=== PATIENT | female | born 1965 | race Caucasian/White ===

== ENCOUNTER → 2016-07-29 | Outpatient (CLI) | payer OTHER ==
[2016-07-29 13:31] LABS: ALT 56 U/L (9-52); AST 52 U/L (14-36); Alkaline Phosphatase 120 U/L (38-126); Anion Gap 13 mmol/L; Blood Urea Nitrogen 10 mg/dL (7-17); Calcium 9.9 mg/dL (8.4-10.2); Carbon Dioxide 28 mmol/L (22-30); Chloride 100 mmol/L (98-107); Glucose 100 mg/dL (74-99); Non-African American GFR(MDRD) >60 (>60 ml/min/1.73 sqM); Potassium 4.7 mmol/L (3.5-5.1); Sodium 141 mmol/L (137-145); Total Bilirubin 0.7 mg/dL (0.2-1.3)
== END | disposition home or self-care (01) ==
LOC: LABWHC1 12:46
PROVIDERS: ATTEND Internal Medicine Clinical Cardiac Electrophysiology
DX: I42.9 Cardiomyopathy, unspecified (principal)
CPT/HCPCS: 36415; 80053; 84443

== ENCOUNTER 2016-11-12 01:49 | Emergency (ER) | payer OTHER ==
[2016-11-12] MEDS ORDERED: ACETAMINOPHEN IV (For NPO) 1,000 MG in EMPTY BAG 1 BAG IVPB STA (02:19)
[2016-11-12] MEDS ORDERED: ONDANSETRON 4 MG/2 ML VIAL IVP STA (02:19)
--- NOTE | 2016-11-12 02:22 | ED ---
Nausea/Vomiting/Diarrhea HPI - General Chief complaint: Nausea/Vomiting/Diarrhea Stated complaint: SOB/Nausea Time Seen by Provider: 11/12/16 02:11 Source: patient, RN notes reviewed Mode of arrival: ambulatory Limitations: no limitations - History of Present Illness Initial comments: Patient is a 51-year-old female presents emergency room for evaluation of throat pain, nausea and vomiting. Patient states yesterday she began developing throat pain. Patient states "I went downhill from there". Patient states since then she has been developing a reactive cough with mild shortness of breath. Patient does admit that she has a history of COPD. Patient states very nauseous and vomiting throughout the day. Patient denies abdominal pain. Patient denies chest pain. Patient states she'sfeeling pretty nauseous. Patient denies headache or dizziness. Patient states feeling very warm throughout the day. Patient states her last dose of Tylenol was 8 PM last evening. Patient has pain or burning during urination, trouble urinating or blood in urine. Patient denies recent travel outside the country. Patient denies new foods. Patient denies recent sick contacts. Patient states taken all her immunizations. - Related Data Home Medications Medication Instructions Recorded Confirmed Spironolactone [Aldactone] 25 mg PO DAILY 06/20/14 11/12/16 Warfarin Sodium [Coumadin] 5 mg PO SUWE 12/06/14 11/12/16 Warfarin [Coumadin] 7.5 mg PO MOTUTHFRSA 12/06/14 11/12/16 Amiodarone [Cordarone] 50 mg PO DAILY 04/06/16 11/12/16 Atorvastatin Calcium [Lipitor] 10 mg PO HS 04/06/16 11/12/16 Carvedilol [Coreg] 3.125 mg PO BID 04/06/16 11/12/16 Previous Rx's Medication Instructions Recorded HYDROcodone/APAP 5-325MG [[place] 1 tab PO Q4HR PRN #20 tab 04/06/16 5-325] Albuterol Inhaler [Ventolin Hfa 1 - 2 puff INHALATION Q6HR PRN #1 11/12/16 Inhaler] inhaler Ondansetron Odt [Zofran Odt] 4 mg PO Q8HR PRN #12 tab 11/12/16 Allergies Allergy/AdvReac Type Severity Reaction Status Date / Time No Known Allergies Allergy Verified 11/12/16 01:58 Review of Systems ROS Statement: Those systems with pertinent positive or pertinent negative responses have been documented in the HPI. ROS Other: All systems not noted in ROS Statement are negative. Past Medical History Past Medical History: Hyperlipidemia, Hypertension, Myocardial Infarction ([place]) Additional Past Medical History / Comment(s): cardiomyopathy, DVT, [place] Last Myocardial Infarction Date:: unknown History of Any Multi-Drug Resistant Organisms: None Reported Past Surgical History: Cholecystectomy Additional Past Surgical History / Comment(s): defibrillator Past Psychological History: Anxiety Smoking Status: Former smoker Past Alcohol Use History: None Reported Past Drug Use History: None Reported - Past Family History Mother Family Medical History: Diabetes Mellitus, Hypertension Father Family Medical History: No Reported History General Exam - General Exam Comments Initial Comments: Sitting in exam room, no acute distress. Limitations: no limitations General appearance: alert, in no apparent distress Head exam: Present: atraumatic, normocephalic, normal inspection Eye exam: Present: normal appearance ENT exam: Present: normal exam Neck exam: Present: normal inspection Respiratory exam: Present: normal lung sounds bilaterally. Absent: respiratory distress Cardiovascular Exam: Present: normal rhythm, tachycardia GI/Abdominal exam: Present: soft, normal bowel sounds. Absent: distended, tenderness, guarding, rebound, rigid Extremities exam: Present: normal inspection Back exam: Present: normal inspection Neurological exam: Present: alert, oriented X3, CN II-XII intact, normal gait Psychiatric exam: Present: normal affect, normal mood Skin exam: Present: warm, dry, intact, normal color. Absent: rash Course Vital Signs 11/12/16 11/12/16 11/12/16 01:54 02:57 03:00 Temperature 100.7 F H Pulse Rate 104 H 103 H Respiratory 20 20 Rate Blood Pressure 145/82 137/67 O2 Sat by Pulse 94 L 97 97 Oximetry 11/12/16 03:56 Temperature 99 F Pulse Rate 87 Respiratory 18 Rate Blood Pressure 139/65 O2 Sat by Pulse 95 Oximetry Medical Decision Making - Medical Decision Making She is a 51-year-old female since emergency room for evaluation nausea, vomiting and cough. WBC within normal limits. Other labs show no concerning findings. Influenza negative. Rapid strep negative. Chest x-ray shows no signs of pneumonia, pleural effusions or pneumothorax. Patient states her symptoms have improved with Zofran and Reglan. Patient states she feels better like to be discharged home. Patient states she understand everything that was discussed with her. Return parameters discussed. Case discussed with Dr. Lawson. - Lab Data Result diagrams: 11/12/16 02:24 11/12/16 02:24 Lab Results 11/12/16 11/12/16 11/12/16 Range/Units 02:15 02:15 02:24 WBC (3.8-10.6) k/uL RBC (3.80-5.40) m/uL Hgb (11.4-16.0) gm/dL Hct (34.0-46.0) % MCV (80.0-100.0) fL MCH (25.0-35.0) pg MCHC (31.0-37.0) g/dL RDW (11.5-15.5) % Plt Count (150-450) k/uL Neutrophils % % Lymphocytes % % Monocytes % % Eosinophils % % Basophils % % Neutrophils # (1.3-7.7) k/uL Lymphocytes # (1.0-4.8) k/uL Monocytes # (0-1.0) k/uL Eosinophils # (0-0.7) k/uL Basophils # (0-0.2) k/uL Poikilocytosis PT (9.0-12.0) sec INR (<1.1) APTT (22.0-30.0) sec Sodium (137-145) mmol/L Potassium (3.5-5.1) mmol/L Chloride (98-107) mmol/L Carbon Dioxide (22-30) mmol/L Anion Gap mmol/L BUN (7-17) mg/dL Creatinine (0.52-1.04) mg/dL Est GFR (MDRD) Af Amer (>60 ml/min/1.73 sqM) Est GFR (MDRD) Non-Af (>60 ml/min/1.73 sqM) Glucose (74-99) mg/dL Plasma Lactic Acid Carlos Eduardo (0.7-2.0) mmol/L Calcium (8.4-10.2) mg/dL Total Bilirubin (0.2-1.3) mg/dL AST (14-36) U/L ALT (9-52) U/L Alkaline Phosphatase (38-126) U/L Total Creatine Kinase 111 (30-135) U/L CK-MB (CK-2) 1.2 (0.0-2.4) ng/mL CK-MB (CK-2) Rel Index 1.1 Troponin I <0.012 (0.000-0.034) ng/mL Total Protein (6.3-8.2) g/dL Albumin (3.5-5.0) g/dL Urine Color Urine Appearance (Clear) Urine pH (5.0-8.0) Ur Specific Mobile (1.001-1.035) Urine Protein (Negative) Urine Glucose (UA) (Negative) Urine Ketones (Negative) Urine Blood (Negative) Urine Nitrite (Negative) Urine Bilirubin (Negative) Urine Urobilinogen (<2.0) mg/dL Ur Leukocyte Esterase (Negative) Influenza Type A RNA Not Detected (Not Detectd) Influenza Type B (PCR) Not Detected (Not Detectd) Group A Strep Rapid Negative (Negative) 11/12/16 11/12/16 11/12/16 Range/Units 02:24 02:24 02:24 WBC 7.0 (3.8-10.6) k/uL RBC 5.16 (3.80-5.40) m/uL Hgb 14.9 (11.4-16.0) gm/dL Hct 42.9 (34.0-46.0) % MCV 83.1 (80.0-100.0) fL MCH 28.9 (25.0-35.0) pg MCHC 34.7 (31.0-37.0) g/dL RDW 15.8 H (11.5-15.5) % Plt Count 142 L (150-450) k/uL Neutrophils % 78 % Lymphocytes % 11 % Monocytes % 5 % Eosinophils % 5 % Basophils % 0 % Neutrophils # 5.5 (1.3-7.7) k/uL Lymphocytes # 0.8 L (1.0-4.8) k/uL Monocytes # 0.4 (0-1.0) k/uL Eosinophils # 0.3 (0-0.7) k/uL Basophils # 0.0 (0-0.2) k/uL Poikilocytosis Slight PT (9.0-12.0) sec INR (<1.1) APTT (22.0-30.0) sec Sodium 140 (137-145) mmol/L Potassium 4.3 (3.5-5.1) mmol/L Chloride 105 (98-107) mmol/L Carbon Dioxide 26 (22-30) mmol/L Anion Gap 9 mmol/L BUN 11 (7-17) mg/dL Creatinine 0.80 (0.52-1.04) mg/dL Est GFR (MDRD) Af Amer >60 (>60 ml/min/1.73 sqM) Est GFR (MDRD) Non-Af >60 (>60 ml/min/1.73 sqM) Glucose 107 H (74-99) mg/dL Plasma Lactic Acid Carlos Eduardo 1.3 (0.7-2.0) mmol/L Calcium 9.4 (8.4-10.2) mg/dL Total Bilirubin 0.9 (0.2-1.3) mg/dL AST 34 (14-36) U/L ALT 40 (9-52) U/L Alkaline Phosphatase 114 (38-126) U/L Total Creatine Kinase (30-135) U/L CK-MB (CK-2) (0.0-2.4) ng/mL CK-MB (CK-2) Rel Index Troponin I (0.000-0.034) ng/mL Total Protein 7.4 (6.3-8.2) g/dL Albumin 4.4 (3.5-5.0) g/dL Urine Color Urine Appearance (Clear) Urine pH (5.0-8.0) Ur Specific Mobile (1.001-1.035) Urine Protein (Negative) Urine Glucose (UA) (Negative) Urine Ketones (Negative) Urine Blood (Negative) Urine Nitrite (Negative) Urine Bilirubin (Negative) Urine Urobilinogen (<2.0) mg/dL Ur Leukocyte Esterase (Negative) Influenza Type A RNA (Not Detectd) Influenza Type B (PCR) (Not Detectd) Group A Strep Rapid (Negative) 11/12/16 11/12/16 Range/Units 02:24 02:42 WBC (3.8-10.6) k/uL RBC (3.80-5.40) m/uL Hgb (11.4-16.0) gm/dL Hct (34.0-46.0) % MCV (80.0-100.0) fL MCH (25.0-35.0) pg MCHC (31.0-37.0) g/dL RDW (11.5-15.5) % Plt Count (150-450) k/uL Neutrophils % % Lymphocytes % % Monocytes % % Eosinophils % % Basophils % % Neutrophils # (1.3-7.7) k/uL Lymphocytes # (1.0-4.8) k/uL Monocytes # (0-1.0) k/uL Eosinophils # (0-0.7) k/uL Basophils # (0-0.2) k/uL Poikilocytosis PT 25.7 H (9.0-12.0) sec INR 2.7 (<1.1) APTT 29.2 (22.0-30.0) sec Sodium (137-145) mmol/L Potassium (3.5-5.1) mmol/L Chloride (98-107) mmol/L Carbon Dioxide (22-30) mmol/L Anion Gap mmol/L BUN (7-17) mg/dL Creatinine (0.52-1.04) mg/dL Est GFR (MDRD) Af Amer (>60 ml/min/1.73 sqM) Est GFR (MDRD) Non-Af (>60 ml/min/1.73 sqM) Glucose (74-99) mg/dL Plasma Lactic Acid Carlos Eduardo (0.7-2.0) mmol/L Calcium (8.4-10.2) mg/dL Total Bilirubin (0.2-1.3) mg/dL AST (14-36) U/L ALT (9-52) U/L Alkaline Phosphatase (38-126) U/L Total Creatine Kinase (30-135) U/L CK-MB (CK-2) (0.0-2.4) ng/mL CK-MB (CK-2) Rel Index Troponin I (0.000-0.034) ng/mL Total Protein (6.3-8.2) g/dL Albumin (3.5-5.0) g/dL Urine Color Yellow Urine Appearance Clear (Clear) Urine pH 5.0 (5.0-8.0) Ur Specific Mobile 1.014 (1.001-1.035) Urine Protein Negative (Negative) Urine Glucose (UA) Negative (Negative) Urine Ketones Negative (Negative) Urine Blood Negative (Negative) Urine Nitrite Negative (Negative) Urine Bilirubin Negative (Negative) Urine Urobilinogen <2.0 (<2.0) mg/dL Ur Leukocyte Esterase Negative (Negative) Influenza Type A RNA (Not Detectd) Influenza Type B (PCR) (Not Detectd) Group A Strep Rapid (Negative) 11/12/16 03:36 Ventricular paced rhythm, ventricular rate 93 bpm, QRS duration 168 ms, QT/QTc 440/547 ms Disposition Clinical Impression: Nausea and vomiting, Cough Disposition: HOME SELF-CARE Condition: Good Instructions: Acute Nausea and Vomiting (ED) Additional Instructions: Take Zofran as needed for nausea. Use inhaler as needed. Alternate Tylenol and Motrin for fever. Drink plenty of fluids. Please follow up with primary care provider in 1-2 days. If any new symptom arises or symptoms worsen, return to ER as soon as possible. Prescriptions: Albuterol Inhaler [Ventolin Hfa Inhaler] 1 - 2 puff INHALATION Q6HR PRN #1 inhaler PRN Reason: Shortness Of Breath Ondansetron Odt [Zofran Odt] 4 mg PO Q8HR PRN #12 tab PRN Reason: Nausea Referrals: Daniel Mosqueda MD [Primary Care Provider] - 1-2 days Time of Disposition: 03:52
[2016-11-12] MEDS: SODIUM CHLORIDE 0.9% 500 ML IV SCH (02:29)
[2016-11-12 02:34] LABS: Basophils % (A) 0 %; CHCM 35.2; Eosinophils # (A) 0.3 k/uL (0-0.7); Eosinophils % (A) 5 %; HCT 42.9 % (34.0-46.0); HDW 3.47; HGB 14.9 gm/dL (11.4-16.0); Luc # (Auto) 0.05; Luc % (Auto) 1; Lymphocytes # (A) 0.8 k/uL (1.0-4.8); Lymphocytes % (A) 11 %; MCH 28.9 pg (25.0-35.0); MCHC 34.7 g/dL (31.0-37.0); MCV 83.1 fL (80.0-100.0); Mean Platelet Volume 8.6; Monocytes # (A) 0.4 k/uL (0-1.0); Monocytes % (A) 5 %; Neutrophils # (A) 5.5 k/uL (1.3-7.7); Neutrophils % (A) 78 %; Poikilocytosis Slight; RBC 5.16 m/uL (3.80-5.40); RDW 15.8 % (11.5-15.5); WBC (Perox) 6.98
[2016-11-12 02:42] LABS: ALT 40 U/L (9-52); AST 34 U/L (14-36); Alkaline Phosphatase 114 U/L (38-126); Anion Gap 9 mmol/L; Blood Urea Nitrogen 11 mg/dL (7-17); Calcium 9.4 mg/dL (8.4-10.2); Carbon Dioxide 26 mmol/L (22-30); Chloride 105 mmol/L (98-107); Glucose 107 mg/dL (74-99); Non-African American GFR(MDRD) >60 (>60 ml/min/1.73 sqM); Potassium 4.3 mmol/L (3.5-5.1); Sodium 140 mmol/L (137-145); Total Bilirubin 0.9 mg/dL (0.2-1.3); Total Protein 7.4 g/dL (6.3-8.2)
[2016-11-12 02:44] LABS: INR 2.7 (<1.1); Partial Thromboplastin Time 29.2 sec (22.0-30.0); Prothrombin Time 25.7 sec (9.0-12.0)
[2016-11-12 02:52] LABS: Appearance,Urine Clear (Clear); Bilirubin,Urine Negative (Negative); Glucose,Urine (UA) Negative (Negative); Ketones,Urine Negative (Negative); Leukocyte Esterase,Urine Negative (Negative); Nitrite,Urine Negative (Negative); Protein,Urine Negative (Negative); Specific Gravity,Urine 1.014 (1.001-1.035); UA Billing (MACRO vs. MICRO) CHEM; Urobilinogen,Urine <2.0 mg/dL (<2.0)
[2016-11-12 02:55] LABS: Creatine Kinase 111 U/L (30-135)
[2016-11-12] MEDS ORDERED: METOCLOPRAMIDE 5 MG/ML 2 ML VIAL IVP STA (02:59)
[2016-11-12 03:08] LABS: Creatine Kinase MB 1.2 ng/mL (0.0-2.4); Troponin I <0.012 ng/mL (0.000-0.034)
--- NOTE | 2016-11-12 03:15 | XR ---
Chest PA and lateral views INDICATION: Chest pain COMPARISON: CXR 03/09/15 FINDINGS: PA and lateral views of the chest are obtained. Cardiomediastinal silhouette is stable with normal heart size. Pulmonary vascularity is normal. There is a left-sided AICD-pacemaker with intact right atrial, right ventricular, and coronary sinus leads. There is no consolidation, effusion, or pneumothorax. There are no acute osseous findings. IMPRESSION: No radiographic evidence of acute cardiopulmonary disease.
[2016-11-12] MEDS ORDERED: IBUPROFEN 600 MG TAB PO STA (03:50)
[2016-11-12 03:57] VITALS: BP 139/65; PULSE 87; RESP 18; TEMP 99
== END 2016-11-12 04:03 | disposition home or self-care (01) ==
LOC: EC 01:49
DX: R11.2 Nausea with vomiting, unspecified (principal); R05 Cough; R00.0 Tachycardia, unspecified; R06.02 Shortness of breath; R07.0 Pain in throat; E78.5 Hyperlipidemia, unspecified; I10 Essential (primary) hypertension; I42.9 Cardiomyopathy, unspecified; I25.2 Old myocardial infarction; Z87.891 Personal history of nicotine dependence; Z79.01 Long term (current) use of anticoagulants; Z79.899 Other long term (current) drug therapy
CPT/HCPCS: 36415; 93005; 80053; 82550; 82553; 83605; 84484; 85025; 85610; 85730; 81003; 87040; 87086; 87081; 87430; 87502; 71020; 99285; 96365; 96375 ×2; 96361; J2765; J2405; J0131

== ENCOUNTER 2016-11-21 09:27 | Observation (INO) | payer OTHER ==
[2016-11-21] MEDS ORDERED: IPRATROPIUM-ALBUTEROL 3 ML NEB INHALATION STA ×2 (11:38→13:27)
[2016-11-21] MEDS ORDERED: methylPREDNISolone SOD SUCCI 125 MG/2 ML VIAL IV STA (11:38)
[2016-11-21] MEDS ORDERED: MORPHINE SULFATE 4 MG/ML SYRINGE IV STA (11:38)
--- NOTE | 2016-11-21 11:47 | ED ---
General Adult HPI - General Source: patient, RN notes reviewed Mode of arrival: ambulatory Limitations: no limitations <Darek Brady - Last Filed: 11/21/16 13:56> <Vishal Burciaga - Last Filed: 11/21/16 14:31> - General Chief complaint: Upper Respiratory Infection Stated complaint: congestion, diff breathing Time Seen by Provider: 11/21/16 11:33 - History of Present Illness Initial comments: Patient is a 51-year-old female who presents emergency room today with a chief increased cough congestion over the past week. She does admit that she was seen here in the emergency room diagnosed with an upper respiratory infection week ago. States she saw her dentist was also placed on antibiotics of amoxicillin due to some dental work. She states that she's had increased cough congestion over the last week he states last 2 days had increased sputum production as been clear in color. Does admit to a history of COPD. States she 's been using treatments at home with some relief the symptoms. She admits that when she fell she's been experiencing increased pain in her back and head. She denies any other complaints at this time. (Darek Brady) - Related Data Home Medications Medication Instructions Recorded Confirmed Spironolactone [Aldactone] 25 mg PO DAILY 06/20/14 11/21/16 Warfarin Sodium [Coumadin] 5 mg PO SUWE 12/06/14 11/21/16 Warfarin [Coumadin] 7.5 mg PO MOTUTHFRSA 12/06/14 11/21/16 Amiodarone [Cordarone] 50 mg PO DAILY 04/06/16 11/21/16 Atorvastatin Calcium [Lipitor] 10 mg PO HS 04/06/16 11/21/16 Carvedilol [Coreg] 3.125 mg PO BID 04/06/16 11/21/16 Amoxicillin 500 mg PO DAILY 11/21/16 11/21/16 Dextromethorphan HBr/Chlor-Mal 2 tab PO ONCE 11/21/16 11/21/16 [Coricidin Hbp Cough & Cold Tab] Previous Rx's Medication Instructions Recorded HYDROcodone/APAP 5-325MG [[place] 1 tab PO Q4HR PRN #20 tab 04/06/16 5-325] Albuterol Inhaler [Ventolin Hfa 1 - 2 puff INHALATION Q6HR PRN #1 11/12/16 Inhaler] inhaler Ondansetron Odt [Zofran Odt] 4 mg PO Q8HR PRN #12 tab 11/12/16 Allergies Allergy/AdvReac Type Severity Reaction Status Date / Time No Known Allergies Allergy Verified 11/21/16 12:07 Review of Systems ROS Other: All systems not noted in ROS Statement are negative. <Jose AntonioDarek - Last Filed: 11/21/16 13:56> ROS Other: All systems not noted in ROS Statement are negative. <Vishal Burciaga - Last Filed: 11/21/16 14:31> ROS Statement: Those systems with pertinent positive or pertinent negative responses have been documented in the HPI. Past Medical History Past Medical History: Hyperlipidemia, Hypertension, Myocardial Infarction ([place]) Additional Past Medical History / Comment(s): cardiomyopathy, DVT, [place] Last Myocardial Infarction Date:: unknown History of Any Multi-Drug Resistant Organisms: None Reported Past Surgical History: Cholecystectomy Additional Past Surgical History / Comment(s): defibrillator Past Psychological History: Anxiety Smoking Status: Former smoker Past Alcohol Use History: None Reported Past Drug Use History: None Reported - Past Family History Mother Family Medical History: Diabetes Mellitus, Hypertension Father Family Medical History: No Reported History <Darek Brady - Last Filed: 11/21/16 13:56> General Exam Limitations: no limitations <Jose AntonioDarek - Last Filed: 11/21/16 13:56> <GualbertoVishal - Last Filed: 11/21/16 14:31> - General Exam Comments Initial Comments: General: The patient is awake and alert, in no distress, and does not appear acutely ill. Eye: Pupils are equal, round and reactive to light, extra-ocular movements are intact. No nystagmus. There is normal conjunctiva bilaterally. No signs of icterus. Ears, nose, mouth and throat: There are moist mucous membranes and no oral lesions. Neck: The neck is supple, there is no tenderness or JVD. Cardiovascular: There is a regular rate and rhythm. No murmur, rub or gallop is appreciated. Respiratory: Bilateral expiratory wheeze. respirations are non-labored, breath sounds are equal. No stridor, rales, or rhonchi. Musculoskeletal: Normal ROM, no tenderness. Strength 5/5. Sensation intact. Pulses equal bilaterally 2+. Neurological: A&O x 3. CN II-XII intact, There are no obvious motor or sensory deficits. Coordination appears grossly intact. Speech is normal. Skin: Skin is warm and dry and no rashes or lesions are noted. Psychiatric: Cooperative, appropriate mood & affect, normal judgment. (Darek Brady) Course <Darek Brady - Last Filed: 11/21/16 13:56> <Vishal Burciaga - Last Filed: 11/21/16 14:31> Vital Signs 11/21/16 11/21/16 11/21/16 10:44 11:50 12:01 Temperature 98.4 F Pulse Rate 79 80 82 Respiratory 16 16 Rate Blood Pressure 138/79 O2 Sat by Pulse 92 L Oximetry 11/21/16 11/21/16 11/21/16 13:23 13:37 13:46 Temperature 97.8 F Pulse Rate 70 74 78 Respiratory 16 Rate Blood Pressure 124/70 O2 Sat by Pulse 98 Oximetry 11/21/16 14:00 Temperature 97.2 F L Pulse Rate 72 Respiratory 16 Rate Blood Pressure 121/59 O2 Sat by Pulse 97 Oximetry - Reevaluation(s) Reevaluation #1: 11/21/16 14:30 I did personally do a [id number] evaluation the patient did discuss the findings with her. She still dyspneic she does demonstrate a pulse oximetry of approximately 8889. She still demonstrates to express also wheezing on auscultation. She will be admitted for inpatient treatment. She does states this is been going on for about 2 days. (Vishal Burciaga) EKG Findings - EKG Comments: EKG Findings:: EKG performed at 6: Shows a ventricular paced rhythm at 65 bpm QRS 172. QT/QTc 510/530. No acute ST changes. <Darek Brady - Last Filed: 11/21/16 13:56> Medical Decision Making - Lab Data Result diagrams: 11/21/16 11:45 11/21/16 11:45 <Darek Brady - Last Filed: 11/21/16 13:56> - Lab Data Result diagrams: 11/21/16 11:45 11/21/16 11:45 <Vishal Burciaga - Last Filed: 11/21/16 14:31> - Medical Decision Making Patient's chest x-rays negative. Her labs been reviewed are unremarkable. She shows no acute abnormalities. Patient's labs reviewed. Patient given breathing treatments and steroids here in the emergency room does have some improvement but still having some wheeze bilaterally. Pulse ox currently 95% on room air. Patient will be admitted for COPD exacerbation continued on steroids and breathing treatments. (Darek Brady) - Lab Data Lab Results 11/21/16 11/21/16 11/21/16 Range/Units 11:45 11:45 11:45 WBC 6.7 (3.8-10.6) k/uL RBC 5.38 (3.80-5.40) m/uL Hgb 15.5 (11.4-16.0) gm/dL Hct 44.2 (34.0-46.0) % MCV 82.3 (80.0-100.0) fL MCH 28.8 (25.0-35.0) pg MCHC 35.0 (31.0-37.0) g/dL RDW 16.2 H (11.5-15.5) % Plt Count 190 (150-450) k/uL Neutrophils % 61 % Lymphocytes % 28 % Monocytes % 6 % Eosinophils % 3 % Basophils % 1 % Neutrophils # 4.1 (1.3-7.7) k/uL Lymphocytes # 1.9 (1.0-4.8) k/uL Monocytes # 0.4 (0-1.0) k/uL Eosinophils # 0.2 (0-0.7) k/uL Basophils # 0.1 (0-0.2) k/uL Hyperchromasia Slight Poikilocytosis Slight Anisocytosis Slight Sodium 140 (137-145) mmol/L Potassium 4.4 (3.5-5.1) mmol/L Chloride 105 (98-107) mmol/L Carbon Dioxide 24 (22-30) mmol/L Anion Gap 11 mmol/L BUN 13 (7-17) mg/dL Creatinine 0.73 (0.52-1.04) mg/dL Est GFR (MDRD) Af Amer >60 (>60 ml/min/1.73 sqM) Est GFR (MDRD) Non-Af >60 (>60 ml/min/1.73 sqM) Glucose 95 (74-99) mg/dL Calcium 9.5 (8.4-10.2) mg/dL Total Bilirubin 0.7 (0.2-1.3) mg/dL AST 40 H (14-36) U/L ALT 53 H (9-52) U/L Alkaline Phosphatase 110 (38-126) U/L Total Creatine Kinase 101 (30-135) U/L CK-MB (CK-2) 1.5 (0.0-2.4) ng/mL CK-MB (CK-2) Rel Index 1.5 Troponin I <0.012 (0.000-0.034) ng/mL Total Protein 7.8 (6.3-8.2) g/dL Albumin 4.5 (3.5-5.0) g/dL Disposition Time of Disposition: 13:51 <Darek Brady - Last Filed: 11/21/16 13:56> <Vishal Burciaga - Last Filed: 11/21/16 14:31> Clinical Impression: COPD exacerbation Disposition: ADMITTED IP TO THIS HOSP Condition: Stable Referrals: Daniel Mosqueda MD [Primary Care Provider] - 1-2 days
[2016-11-21 12:07] LABS: Anisocytosis Slight; Basophils # (A) 0.1 k/uL (0-0.2); Basophils % (A) 1 %; CH 29.3; Eosinophils # (A) 0.2 k/uL (0-0.7); Eosinophils % (A) 3 %; HCT 44.2 % (34.0-46.0); HDW 3.84; HGB 15.5 gm/dL (11.4-16.0); Hyperchromasia Slight; Luc # (Auto) 0.12; Luc % (Auto) 2; Lymphocytes # (A) 1.9 k/uL (1.0-4.8); Lymphocytes % (A) 28 %; MCH 28.8 pg (25.0-35.0); MCV 82.3 fL (80.0-100.0); Mean Platelet Volume 8.4; Monocytes # (A) 0.4 k/uL (0-1.0); Monocytes % (A) 6 %; Neutrophils # (A) 4.1 k/uL (1.3-7.7); Neutrophils % (A) 61 %; Poikilocytosis Slight; RBC 5.38 m/uL (3.80-5.40); RDW 16.2 % (11.5-15.5); WBC 6.7 k/uL (3.8-10.6); WBC (Perox) 6.66
--- NOTE | 2016-11-21 12:19 | XR ---
EXAMINATION TYPE: XR chest 2V DATE OF EXAM: 11/21/2016 12:14 PM COMPARISON: 11/12/2016 INDICATION: Cough congestion TECHNIQUE: 2 view chest FINDINGS: The heart size is normal. The pulmonary vasculature is normal. The lungs are clear. Pacemaker overlies left chest. IMPRESSION: 1. No acute pulmonary process.
[2016-11-21 12:23] LABS: ALT 53 U/L (9-52); AST 40 U/L (14-36); Alkaline Phosphatase 110 U/L (38-126); Anion Gap 11 mmol/L; Blood Urea Nitrogen 13 mg/dL (7-17); Calcium 9.5 mg/dL (8.4-10.2); Carbon Dioxide 24 mmol/L (22-30); Chloride 105 mmol/L (98-107); Glucose 95 mg/dL (74-99); Non-African American GFR(MDRD) >60 (>60 ml/min/1.73 sqM); Potassium 4.4 mmol/L (3.5-5.1); Sodium 140 mmol/L (137-145); Total Bilirubin 0.7 mg/dL (0.2-1.3); Total Protein 7.8 g/dL (6.3-8.2)
[2016-11-21 12:30] LABS: Creatine Kinase 101 U/L (30-135)
[2016-11-21 12:42] LABS: Creatine Kinase MB 1.5 ng/mL (0.0-2.4); Troponin I <0.012 ng/mL (0.000-0.034)
[2016-11-21] MEDS ORDERED: HYDROcodone/APAP 5-325MG 1 EACH TAB PO STA (13:22)
[2016-11-21] MEDS ORDERED: ONDANSETRON 4 MG/2 ML VIAL IVP PRN (13:52)
[2016-11-21] MEDS ORDERED: NALOXONE 0.4 MG/ML 1 ML VIAL IV PRN (13:52)
[2016-11-21] MEDS ORDERED: SODIUM CHLORIDE 0.9% 1,000 ML IV ONE (13:52)
[2016-11-21 16:40] LABS: INR 2.5 (<1.1); Prothrombin Time 24.1 sec (9.0-12.0)
[2016-11-21] MEDS: methylPREDNISolone SOD SUCCI 125 MG/2 ML VIAL IV SCH ×2 (17:22→23:23)
[2016-11-21] MEDS: HYDROcodone/APAP 5-325MG 1 EACH TAB PO PRN (17:24)
[2016-11-21] MEDS ORDERED: WARFARIN 7.5 MG TAB PO SCH (18:00)
[2016-11-21] MEDS: ATORVASTATIN 10 MG TAB PO SCH (21:03)
[2016-11-21] MEDS: CARVEDILOL 3.125 MG TAB PO SCH (21:03)
[2016-11-21] MEDS: ZOLPIDEM 5 MG TAB PO PRN (22:06)
[2016-11-22] MEDS: HYDROcodone/APAP 5-325MG 1 EACH TAB PO PRN ×2 (04:45→07:56)
[2016-11-22] MEDS: methylPREDNISolone SOD SUCCI 125 MG/2 ML VIAL IV SCH ×4 (06:29→23:41)
[2016-11-22] MEDS: AMIODARONE 50 MG TAB PO SCH (07:56)
[2016-11-22] MEDS: CARVEDILOL 3.125 MG TAB PO SCH ×2 (07:56→21:03)
[2016-11-22] MEDS: SPIRONOLACTONE 25 MG TAB PO SCH (07:57)
[2016-11-22 09:38] LABS: Anisocytosis Slight; Basophils % (A) 0 %; CH 28.8; CHCM 33.5; Eosinophils % (A) 0 %; HCT 43.2 % (34.0-46.0); HGB 14.3 gm/dL (11.4-16.0); Luc # (Auto) 0.04; Luc % (Auto) 0; Lymphocytes # (A) 1.1 k/uL (1.0-4.8); Lymphocytes % (A) 9 %; MCH 28.6 pg (25.0-35.0); MCV 86.7 fL (80.0-100.0); Mean Platelet Volume 9.3; Monocytes # (A) 0.1 k/uL (0-1.0); Monocytes % (A) 1 %; Neutrophils # (A) 10.8 k/uL (1.3-7.7); Neutrophils % (A) 89 %; Poikilocytosis Slight; RBC 4.98 m/uL (3.80-5.40); RDW 16.3 % (11.5-15.5); WBC 12.1 k/uL (3.8-10.6); WBC (Perox) 12.37
[2016-11-22 09:45] LABS: INR 2.5 (<1.1); Prothrombin Time 24.4 sec (9.0-12.0)
[2016-11-22 09:49] LABS: ALT 44 U/L (9-52); AST 29 U/L (14-36); Alkaline Phosphatase 86 U/L (38-126); Anion Gap 13 mmol/L; Blood Urea Nitrogen 16 mg/dL (7-17); Calcium 9.6 mg/dL (8.4-10.2); Carbon Dioxide 23 mmol/L (22-30); Chloride 105 mmol/L (98-107); Glucose 201 mg/dL (74-99); Non-African American GFR(MDRD) >60 (>60 ml/min/1.73 sqM); Potassium 4.2 mmol/L (3.5-5.1); Sodium 141 mmol/L (137-145); Total Bilirubin 0.5 mg/dL (0.2-1.3); Total Protein 7.2 g/dL (6.3-8.2)
[2016-11-22] MEDS: IPRATROPIUM-ALBUTEROL 3 ML NEB INHALATION PRN ×2 (11:18→19:09)
[2016-11-22] MEDS ORDERED: BUTALB/APAP/CAFF 50-325-40MG TAB PO PRN (14:12)
[2016-11-22] MEDS: BUTALB/APAP/CAFF 50-325-40MG TAB PO PRN (15:48)
[2016-11-22] MEDS ORDERED: WARFARIN 5 MG TAB PO SCH (18:00)
--- NOTE | 2016-11-22 20:00 | HP ---
DATE OF ADMISSION: CHIEF COMPLAINT: Difficulty breathing. HISTORY OF PRESENT ILLNESS: This is another admission for this 51-year-old white female who has had multiple problems in the past including COPD and asthma. She came into the emergency room with difficulty breathing and was admitted with COPD. She has a past history of cardiomyopathy, previous myocardial infarction and DVT with pulmonary embolism. REVIEW OF SYSTEMS: She does have a slight headache but she has had no change in vision or hearing. She has had no hemoptysis, palpitations, syncope, abdominal pain, vomiting, diarrhea, melena, jaundice, hematuria, frequency, urgency, diabetes, etc. Past medical history, family history, personal and social histories reveal that she has surgically undergone a cholecystectomy and placement of AICD. She is not allergic to any medication. She is on amiodarone, Coreg, Aldactone, Xanax, Ambien, statins and Coumadin. She does not smoke any longer, but did. She does not drink. PHYSICAL EXAMINATION: VITAL SIGNS: Blood pressure 124/69, pulse 66, respirations of 42 and she is afebrile. GENERAL: She appeared to be in no acute distress. Face is flushed. HEENT: Head, ears, eyes, nose, mouth, and throat were normal. NECK: Neck veins are not distended. Thyroid is enlarged. CHEST: Chest demonstrated wheezes, rales and rhonchi throughout with prolonged expiratory phase. CARDIAC: Normal except for tachycardia. ABDOMEN: The abdomen is soft and there are no masses. EXTREMITIES: Normal. NEUROLOGICAL: She is intact. IMPRESSION: 1. Exacerbation of chronic obstructive pulmonary disease. 2. Cardiomyopathy. 3. Previous pulmonary embolism. PLAN: 1. Bed rest. 2. IV fluids. 3. Updrafts. 4. IV and inhaled steroids.
--- NOTE | 2016-11-22 20:02 | PN ---
DATE OF SERVICE: 11/22/2016 CHIEF COMPLAINT: Exacerbation of chronic obstructive pulmonary disease. HISTORY OF PRESENT ILLNESS: This lady is doing a little bit better. She does have a slight headache. PHYSICAL EXAMINATION: Vital signs are more clear and there is much less wheezing. Cardiac exam is normal. IMPRESSION: 1. Exacerbation of chronic obstructive pulmonary disease. 2. Previous pulmonary embolism. 3. Cardiomyopathy. PLAN: Fioricet for the headache and continue to treat her chronic obstructive pulmonary disease.
[2016-11-22] MEDS: ATORVASTATIN 10 MG TAB PO SCH (21:04)
[2016-11-22] MEDS: ZOLPIDEM 5 MG TAB PO PRN (21:07)
[2016-11-23] MEDS: methylPREDNISolone SOD SUCCI 125 MG/2 ML VIAL IV SCH ×2 (05:47→11:36)
[2016-11-23] MEDS: BUTALB/APAP/CAFF 50-325-40MG TAB PO PRN ×2 (07:22→11:31)
[2016-11-23 07:27] VITALS: BP 117/77; RESP 18; TEMP 97.5
[2016-11-23] MEDS: IPRATROPIUM-ALBUTEROL 3 ML NEB INHALATION PRN (08:10)
[2016-11-23 08:21] VITALS: PULSE 80
[2016-11-23] MEDS: SPIRONOLACTONE 25 MG TAB PO SCH (08:25)
[2016-11-23] MEDS: CARVEDILOL 3.125 MG TAB PO SCH (08:25)
[2016-11-23] MEDS: AMIODARONE 50 MG TAB PO SCH (08:25)
--- NOTE | 2016-11-23 11:10 | P.DS ---
Providers Date of admission: 11/21/16 14:30 Expected date of discharge: 11/23/16 Attending physician: Daniel Mcfarland Primary care physician: Daniel Mcfarland [facility] Course: A 51-year-old female presented to the emergency room with a chief complaint of having audible cough and congestion shortness of breath. Patient was in the emergency room one week prior with similar symptoms was treated for an upper respiratory infection. Patient states that she also saw her dentist to place the patient on antibiotics amoxicillin due to some dental work. Patient stated she continued to have the above-mentioned symptoms 3 presented to the emergency room to be evaluated for the above-mentioned symptoms. In the emergency room on air the patient's pulse ox sat was 88%. Patient was started on updrafts and was advised to be admitted for inpatient treatment. Chest x-ray obtained in the emergency room was negative. Patient elected to be treated for an acute exacerbation of COPD. Impression discharge diagnosis Present on admission shortness of breath acute hypoxic respiratory insufficiency suspect due to exacerbation COPD failed outpatient treatment A remote history of tobacco abuse Recent treatment for an upper respiratory infection History of a pulmonary emboli on anticoagulation Coumadin INR therapeutic on admission 2.5 Chronic congestive heart failure systolic dysfunction echocardiogram 2014 EF less than 20 no evidence of decompensation Hypertension with hypertensive heart disease Severe pulmonary hypertension per echocardiogram 2014 The above dictated assessment and findings were discussed with dr mcfarland . Impression and the plan of care have been dictated as directed. Sary Zazueta nurse practitioner acting as a scribe for dr mcfarland Patient Condition at Discharge: Stable Plan - Discharge Summary New Discharge Prescriptions: methylPREDNISolone Dose Pack [Medrol Dose Pack] 4 mg PO DIRECTED #21 package Discharge Medication List Spironolactone [Aldactone] 25 mg PO DAILY 06/20/14 [History] Warfarin Sodium [Coumadin] 5 mg PO SUWE 12/06/14 [History] Warfarin [Coumadin] 7.5 mg PO MOTUTHFRSA 12/06/14 [History] Amiodarone [Cordarone] 50 mg PO DAILY 04/06/16 [History] Atorvastatin Calcium [Lipitor] 10 mg PO HS 04/06/16 [History] Carvedilol [Coreg] 3.125 mg PO BID 04/06/16 [History] HYDROcodone/APAP 5-325MG [[place] 5-325] 1 tab PO Q4HR PRN #20 tab 04/06/16 [Rx] Albuterol Inhaler [Ventolin Hfa Inhaler] 1 - 2 puff INHALATION Q6HR PRN #1 inhaler 11/12/16 [Rx] Ondansetron Odt [Zofran ODT] 4 mg PO Q8HR PRN #12 tab 11/12/16 [Rx] Amoxicillin 500 mg PO DAILY 11/21/16 [History] Dextromethorphan HBr/Chlor-Mal [Coricidin Hbp Cough & Cold Tab] 2 tab PO ONCE [History] Zolpidem [Ambien] 5 mg PO HS PRN 11/21/16 [History] methylPREDNISolone Dose Pack [Medrol Dose Pack] 4 mg PO DIRECTED #21 package 11/23/16 [Rx] Follow up Appointment(s)/Referral(s): Daniel Mcfarland MD [Primary Care Provider] - 1-2 days Patient Instructions/Handouts: COPD (Chronic Obstructive Pulmonary Disease) (DC ) Discharge Disposition: HOME SELF-CARE
--- NOTE | 2016-11-24 18:35 | PN ---
DATE OF SERVICE: 11/23/2016 CHIEF COMPLAINT: Difficulty breathing. HISTORY OF PRESENT ILLNESS: This lady is doing much better. Chest has opened up. She is much less tight and wheezy. She is not running a fever. The examination is basically normal. She still has some wheezing and congestion in both lung baker, but it is much improved, and she is nearly clear. IMPRESSION: Exacerbation of chronic obstructive pulmonary disease. PLAN: Probably home today. This will be arranged by the nurse practitioner.
== END 2016-11-23 11:40 | disposition home or self-care (01) ==
LOC: EC 09:27 → 4MS4W 14:30
PROVIDERS: ADMIT Family Medicine; ATTEND Family Medicine
DX: J44.1 Chronic obstructive pulmonary disease with (acute) exacerbation (principal); I42.9 Cardiomyopathy, unspecified; Z79.01 Long term (current) use of anticoagulants; E78.5 Hyperlipidemia, unspecified; I25.2 Old myocardial infarction; Z86.718 Personal history of other venous thrombosis and embolism; F41.9 Anxiety disorder, unspecified; Z87.891 Personal history of nicotine dependence; Z82.49 Family history of ischemic heart disease and other diseases of the circulatory system; Z83.3 Family history of diabetes mellitus; Z86.711 Personal history of pulmonary embolism; J06.9 Acute upper respiratory infection, unspecified; I50.22 Chronic systolic (congestive) heart failure; I11.0 Hypertensive heart disease with heart failure; I27.2 Other secondary pulmonary hypertension; R06.02 Shortness of breath; R09.02 Hypoxemia; R06.89 Other abnormalities of breathing; Z79.899 Other long term (current) drug therapy
CPT/HCPCS: 96374; 96375; 99284; 36415; 94640 ×5; 94760; 93005; 80053 ×2; 82550; 82553; 84484; 85025 ×2; 85610 ×2; 71020; G0378 ×3; J2270; J2930 ×3

== ENCOUNTER 2016-12-23 22:56 | Emergency (ER) | payer OTHER ==
[2016-12-23] MEDS ORDERED: SODIUM CHLORIDE 0.9% 1,000 ML IV ONE (23:14)
[2016-12-23] MEDS ORDERED: ONDANSETRON 4 MG/2 ML VIAL IVP STA (23:14)
[2016-12-23] MEDS ORDERED: FAMOTIDINE 20 MG/2 ML VIAL IV STA (23:14)
--- NOTE | 2016-12-23 23:26 | ED ---
General Adult HPI - General Chief complaint: Chest Pain Stated complaint: Chest Pain Time Seen by Provider: 12/23/16 23:00 Source: patient Mode of arrival: wheelchair Limitations: no limitations - History of Present Illness Initial comments: This is a 51-year-old female with a history of PE, CAD, pacemaker who presents emergency department for epigastric abdominal pain nausea and vomiting. She states that the symptoms started earlier today with the nausea. She states that she had a sip of some Pepsi just before coming into the emergency department and developed the discomfort in her abdomen and burning sensation in her chest. She denies any associated shortness of breath however does admit to some lightheadedness. No diarrhea. Her daughter was recently admitted today for pancreatitis. She states that she does not recall what it felt like when she had her heart attack because she was unconscious. She denies any other complaints. No history of GERD. No other complaints. - Related Data Home Medications Medication Instructions Recorded Confirmed Spironolactone [Aldactone] 25 mg PO DAILY 06/20/14 11/21/16 Warfarin Sodium [Coumadin] 5 mg PO SUWE 12/06/14 11/21/16 Warfarin [Coumadin] 7.5 mg PO MOTUTHFRSA 12/06/14 11/21/16 Amiodarone [Cordarone] 50 mg PO DAILY 04/06/16 11/21/16 Atorvastatin Calcium [Lipitor] 10 mg PO HS 04/06/16 11/21/16 Carvedilol [Coreg] 3.125 mg PO BID 04/06/16 11/21/16 Amoxicillin 500 mg PO DAILY 11/21/16 11/21/16 Chlorpheniramine/Dextromethorp 2 tab PO ONCE 11/21/16 11/21/16 [Coricidin Hbp Cough & Cold Tab] Zolpidem [Ambien] 5 mg PO HS PRN 11/21/16 11/21/16 Previous Rx's Medication Instructions Recorded HYDROcodone/APAP 5-325MG [[place] 1 tab PO Q4HR PRN #20 tab 04/06/16 5-325] Albuterol Inhaler [Ventolin Hfa 1 - 2 puff INHALATION Q6HR PRN #1 11/12/16 Inhaler] inhaler Ondansetron Odt [Zofran ODT] 4 mg PO Q8HR PRN #12 tab 11/12/16 methylPREDNISolone Dose Pack 4 mg PO DIRECTED #21 package 11/23/16 [Medrol Dose Pack] Allergies Allergy/AdvReac Type Severity Reaction Status Date / Time No Known Allergies Allergy Verified 11/21/16 12:07 Review of Systems ROS Statement: Those systems with pertinent positive or pertinent negative responses have been documented in the HPI. ROS Other: All systems not noted in ROS Statement are negative. Past Medical History Past Medical History: Hyperlipidemia, Hypertension, Myocardial Infarction (PR) Additional Past Medical History / Comment(s): cardiomyopathy, DVT, PR Last Myocardial Infarction Date:: unknown History of Any Multi-Drug Resistant Organisms: None Reported Past Surgical History: Cholecystectomy Additional Past Surgical History / Comment(s): defibrillator Past Psychological History: Anxiety Smoking Status: Former smoker Past Alcohol Use History: None Reported Past Drug Use History: None Reported - Past Family History Mother Family Medical History: Diabetes Mellitus, Hypertension Father Family Medical History: No Reported History General Exam - General Exam Comments Initial Comments: Constitutional: [Awake alert] appears in mild distress Head: [Normocephalic atraumatic] Eyes: [no conjunctival injection] [No scleral icterus] [EOMI] Neck: [No JVD] [Supple] Heart: Tachycardia [normal S1-S2] [no murmurs] Lungs: [Clear to auscultation bilaterally] [No wheezing] [No rales] Abdomen: [Soft] [nondistended] mild epigastric tenderness without rebound or guarding Extremities: [Non edematous] [DP pulses intact] [Radial pulses intact] Neuro: [A&Ox3] [No focal neurologic deficits] Psych: [Appropriate mood and affect] Limitations: no limitations Course Vital Signs 12/23/16 12/23/16 12/23/16 22:58 23:13 23:40 Temperature 98.3 F Pulse Rate 119 H 105 H 96 Respiratory 24 18 16 Rate Blood Pressure 172/107 172/102 107/59 O2 Sat by Pulse 92 L 98 Oximetry EKG Findings - EKG Comments: EKG Findings:: EKG showing a ventricular paced rhythm with a rate of 1:15. No abnormal ST segment changes or T-wave inversions. QTC 542. Medical Decision Making - Medical Decision Making This is a 51-year-old female who presents emergency department for epigastric abdominal pain nausea and vomiting. She was improved after Zofran and Pepcid. Had no further pain after these medications. Labwork reviewed and unremarkable. EKG was normal for her. Showed a paced rhythm. At this time I feel the patient is likely suffering from some type of gastritis. I told her to go home take Zofran and Zantac which she has at home. She can return she has worsening symptoms or all questions were answered. - Lab Data Result diagrams: 12/23/16 23:37 12/23/16 23:37 Lab Results 12/23/16 12/23/16 12/23/16 Range/Units 23:37 23:37 23:37 WBC 8.2 (3.8-10.6) k/uL RBC 5.09 (3.80-5.40) m/uL Hgb 15.1 (11.4-16.0) gm/dL Hct 43.4 (34.0-46.0) % MCV 85.3 (80.0-100.0) fL MCH 29.7 (25.0-35.0) pg MCHC 34.8 (31.0-37.0) g/dL RDW 16.5 H (11.5-15.5) % Plt Count 181 (150-450) k/uL Neutrophils % 63 % Lymphocytes % 27 % Monocytes % 5 % Eosinophils % 4 % Basophils % 1 % Neutrophils # 5.1 (1.3-7.7) k/uL Lymphocytes # 2.2 (1.0-4.8) k/uL Monocytes # 0.4 (0-1.0) k/uL Eosinophils # 0.3 (0-0.7) k/uL Basophils # 0.1 (0-0.2) k/uL Poikilocytosis Slight Anisocytosis Slight Sodium 140 (137-145) mmol/L Potassium 4.0 (3.5-5.1) mmol/L Chloride 103 (98-107) mmol/L Carbon Dioxide 27 (22-30) mmol/L Anion Gap 10 mmol/L BUN 11 (7-17) mg/dL Creatinine 0.79 (0.52-1.04) mg/dL Est GFR (MDRD) Af Amer >60 (>60 ml/min/1.73 sqM) Est GFR (MDRD) Non-Af >60 (>60 ml/min/1.73 sqM) Glucose 106 H (74-99) mg/dL Calcium 9.6 (8.4-10.2) mg/dL Magnesium 1.9 (1.6-2.3) mg/dL Total Bilirubin 0.6 (0.2-1.3) mg/dL AST 24 (14-36) U/L ALT 35 (9-52) U/L Alkaline Phosphatase 124 (38-126) U/L CK-MB (CK-2) 1.5 (0.0-2.4) ng/mL Troponin I <0.012 (0.000-0.034) ng/mL Total Protein 7.5 (6.3-8.2) g/dL Albumin 4.5 (3.5-5.0) g/dL Amylase 55 (30-110) U/L Lipase 85 (23-300) U/L Disposition Clinical Impression: Epigastric pain, Nausea & vomiting Disposition: HOME SELF-CARE Condition: Stable Instructions: Epigastric Pain (ED) Referrals: Daniel Mosqueda MD [Primary Care Provider] - 1-2 days
[2016-12-23 23:44] LABS: Anisocytosis Slight; Basophils # (A) 0.1 k/uL (0-0.2); Basophils % (A) 1 %; CH 29.7; CHCM 35.1; Eosinophils # (A) 0.3 k/uL (0-0.7); Eosinophils % (A) 4 %; HCT 43.4 % (34.0-46.0); HGB 15.1 gm/dL (11.4-16.0); Luc # (Auto) 0.13; Luc % (Auto) 2; Lymphocytes # (A) 2.2 k/uL (1.0-4.8); Lymphocytes % (A) 27 %; MCH 29.7 pg (25.0-35.0); MCHC 34.8 g/dL (31.0-37.0); MCV 85.3 fL (80.0-100.0); Mean Platelet Volume 8.8; Monocytes # (A) 0.4 k/uL (0-1.0); Monocytes % (A) 5 %; Neutrophils # (A) 5.1 k/uL (1.3-7.7); Neutrophils % (A) 63 %; Poikilocytosis Slight; RBC 5.09 m/uL (3.80-5.40); RDW 16.5 % (11.5-15.5); WBC 8.2 k/uL (3.8-10.6); WBC (Perox) 7.59
[2016-12-23 23:53] LABS: ALT 35 U/L (9-52); AST 24 U/L (14-36); Alkaline Phosphatase 124 U/L (38-126); Amylase 55 U/L (30-110); Anion Gap 10 mmol/L; Blood Urea Nitrogen 11 mg/dL (7-17); Calcium 9.6 mg/dL (8.4-10.2); Carbon Dioxide 27 mmol/L (22-30); Chloride 103 mmol/L (98-107); Glucose 106 mg/dL (74-99); Magnesium 1.9 mg/dL (1.6-2.3); Non-African American GFR(MDRD) >60 (>60 ml/min/1.73 sqM); Sodium 140 mmol/L (137-145); Total Bilirubin 0.6 mg/dL (0.2-1.3); Total Protein 7.5 g/dL (6.3-8.2)
[2016-12-24 00:20] LABS: Creatine Kinase MB 1.5 ng/mL (0.0-2.4); Troponin I <0.012 ng/mL (0.000-0.034)
--- NOTE | 2016-12-24 00:20 | XR ---
EXAM: XR Chest, 2 Views CLINICAL HISTORY: Reason: Chest pain and discomfort TECHNIQUE: Frontal and lateral views of the chest. COMPARISON: Chest radiograph on 11/21/2016 FINDINGS: Lungs/pleura: Mild bibasilar opacities likely represent atelectasis. No focal consolidation. No pleural effusion or pneumothorax. Heart/mediastinum: Stable left-sided pacemaker/AICD. Stable cardiomediastinal silhouette. Soft tissues: Unremarkable. Bones: No acute fracture. Upper abdomen: Normal. IMPRESSION: Mild bibasilar atelectasis. No acute disease.
[2016-12-24 01:50] VITALS: BP 107/73; PULSE 75; RESP 18; TEMP 97
[2016-12-24 02:01] LABS: Appearance,Urine Clear (Clear); Bilirubin,Urine Negative (Negative); Glucose,Urine (UA) Negative (Negative); Ketones,Urine Negative (Negative); Leukocyte Esterase,Urine Negative (Negative); Nitrite,Urine Negative (Negative); PH, Urine 5.5 (5.0-8.0); Protein,Urine Negative (Negative); Specific Gravity,Urine 1.016 (1.001-1.035); UA Billing (MACRO vs. MICRO) CHEM; Urobilinogen,Urine <2.0 mg/dL (<2.0)
== END 2016-12-24 01:49 | disposition home or self-care (01) ==
LOC: EC 22:56
DX: R11.2 Nausea with vomiting, unspecified (principal); R10.13 Epigastric pain; R00.0 Tachycardia, unspecified; R42 Dizziness and giddiness; R12 Heartburn; E78.5 Hyperlipidemia, unspecified; I10 Essential (primary) hypertension; I25.2 Old myocardial infarction; Z87.891 Personal history of nicotine dependence; Z79.01 Long term (current) use of anticoagulants; Z79.899 Other long term (current) drug therapy; Z90.49 Acquired absence of other specified parts of digestive tract; Z95.810 Presence of automatic (implantable) cardiac defibrillator; Z95.0 Presence of cardiac pacemaker
CPT/HCPCS: 36415; 93005; 80053; 82150; 82553; 83690; 83735; 84484; 85025; 81003; 71020; 99285; 96374; 96375; 96361; J2405

== ENCOUNTER 2017-03-20 10:56 | Emergency (ER) | payer MEDICARE, OTHER ==
[2017-03-20 11:34] VITALS: BP 116/77; TEMP 98.5
[2017-03-20] MEDS ORDERED: IPRATROPIUM-ALBUTEROL 3 ML NEB INHALATION STA (12:04)
--- NOTE | 2017-03-20 12:09 | ED ---
URI HPI - General Chief Complaint: Upper Respiratory Infection Stated Complaint: POSS PNEUMONIA Time Seen by Provider: 03/20/17 11:30 Source: patient, RN notes reviewed Mode of arrival: ambulatory Limitations: no limitations - History of Present Illness Initial Comments: This is a 51-year-old female with a known history of COPD who states her last today she's had sinus congestion plugged up ears a cough she's had some sweats which she does states she has normally with her menopausal condition also she's had nausea. She has been coughing up some phlegm. She's had some intermittent chest discomfort with deep breathing and coughing she states she has had some stabbing pain again with coughing and deep breathing. She points to the back area. No mid spine tenderness some anterior chest wall area pain. She states she's been using her home medication without relief of her shortness of breath. MD Complaint: cough, nasal congestion, other - Related Data Home Medications Medication Instructions Recorded Confirmed Spironolactone [Aldactone] 25 mg PO DAILY 06/20/14 03/20/17 Warfarin Sodium [Coumadin] 5 mg PO SUWE 12/06/14 03/20/17 Warfarin [Coumadin] 7.5 mg PO MOTUTHFRSA 12/06/14 03/20/17 Amiodarone [Cordarone] 50 mg PO DAILY 04/06/16 03/20/17 Atorvastatin Calcium [Lipitor] 10 mg PO HS 04/06/16 03/20/17 Carvedilol [Coreg] 3.125 mg PO BID 04/06/16 03/20/17 Zolpidem [Ambien] 5 mg PO HS PRN 11/21/16 03/20/17 Previous Rx's Medication Instructions Recorded Albuterol Inhaler [Ventolin Hfa 1 - 2 puff INHALATION Q6HR PRN #1 11/12/16 Inhaler] inhaler Ondansetron Odt [Zofran ODT] 4 mg PO Q8HR PRN #12 tab 11/12/16 Amoxicillin/Potassium Clav 1 tab PO Q12HR #20 tab 03/20/17 [Augmentin 875-125 Tablet] Ipratropium/Albuterol Sulfate 2 puff INHALATION QID #1 inhaler 03/20/17 [Combivent Respimat Inhaler] predniSONE 20 mg PO BID #10 tab 03/20/17 Allergies Allergy/AdvReac Type Severity Reaction Status Date / Time No Known Allergies Allergy Verified 03/20/17 11:33 Review of Systems ROS Statement: Those systems with pertinent positive or pertinent negative responses have been documented in the HPI. ROS Other: All systems not noted in ROS Statement are negative. Past Medical History Past Medical History: COPD, Hyperlipidemia, Hypertension, Myocardial Infarction (SD) Additional Past Medical History / Comment(s): cardiomyopathy, DVT, Last Myocardial Infarction Date:: unknown History of Any Multi-Drug Resistant Organisms: None Reported Past Surgical History: AICD, Cholecystectomy Additional Past Surgical History / Comment(s): defibrillator Past Psychological History: Anxiety Smoking Status: Former smoker Past Alcohol Use History: None Reported Past Drug Use History: None Reported - Past Family History Mother Family Medical History: Diabetes Mellitus, Hypertension Father Family Medical History: No Reported History General Exam - General Exam Comments Initial Comments: This is a well-developed well-nourished awake alert oriented 3 female Limitations: no limitations General appearance: alert Head exam: Present: atraumatic, normocephalic, normal inspection Eye exam: Present: normal appearance, PERRL, EOMI ENT exam: Present: other (Mild posterior fragile erythema boggy nasal mucosa both tympanic membranes are dull with evidence of fluid behind the membranes.) Neck exam: Present: normal inspection. Absent: tenderness, meningismus, lymphadenopathy Respiratory exam: Present: chest wall tenderness, decreased breath sounds Cardiovascular Exam: Present: regular rate, normal rhythm, normal heart sounds. Absent: systolic murmur, diastolic murmur, rubs, gallop, clicks GI/Abdominal exam: Present: soft, normal bowel sounds. Absent: distended, tenderness, guarding, rebound, rigid, pulsatile mass Extremities exam: Present: normal inspection, full ROM, normal capillary refill. Absent: tenderness, pedal edema, joint swelling, calf tenderness Back exam: Present: normal inspection, tenderness, paraspinal tenderness ( Hospital tenderness on the right side). Absent: muscle spasm, vertebral tenderness Neurological exam: Present: alert, oriented X3, CN II-XII intact Psychiatric exam: Present: normal affect, normal mood Skin exam: Present: warm, dry, intact, normal color. Absent: rash Course Vital Signs 03/20/17 03/20/17 03/20/17 11:31 12:13 12:17 Temperature 98.5 F Pulse Rate 88 88 Respiratory 20 18 Rate Blood Pressure 116/77 O2 Sat by Pulse 98 Oximetry 03/20/17 12:27 Temperature Pulse Rate 96 Respiratory Rate Blood Pressure O2 Sat by Pulse Oximetry Medical Decision Making - Medical Decision Making Patient will be discharged to did discuss Pfizer reevaluation reveals increased breath sounds. She still has reproducible tenderness palpation of the chest wall. 3 place on antibiotics and steroids additionally she does not have a rescue inhaler home she'll be placed on Combivent. - EKG Data -: EKG Interpreted by Me (Atrial sensed ventricular paced rhythm of 78 AL interval 112 QRS 188, QT/QT) - Radiology Data Radiology results: report reviewed (I did review the imaging and report no acute findings are seen.), image reviewed Disposition Clinical Impression: Otitis media, Asthmatic bronchitis, Acute bronchospasm Disposition: HOME SELF-CARE Condition: Good Instructions: Otitis Media (ED), Bronchospasm (ED), COPD (Chronic Obstructive Pulmonary Disease) (ED) Prescriptions: Amoxicillin/Potassium Clav [Augmentin 875-125 Tablet] 1 tab PO Q12HR #20 tab Ipratropium/Albuterol Sulfate [Combivent Respimat Inhaler] 2 puff INHALATION QID #1 inhaler predniSONE 20 mg PO BID #10 tab Referrals: Daniel Mosqueda MD [Primary Care Provider] - 1-2 days
[2017-03-20 12:14] VITALS: RESP 18
--- NOTE | 2017-03-20 12:21 | XR ---
EXAMINATION TYPE: XR chest 2V DATE OF EXAM: 03/20/2017 COMPARISON: Chest x-ray December 23, 2016. HISTORY: Cough and left-sided chest pain. TECHNIQUE: Frontal and lateral views of the chest are obtained. FINDINGS: There is no focal air space opacity, pleural effusion, or pneumothorax seen. The cardiac silhouette size remains within normal limits with multi lead pacemaker/AICD. The osseous structures are intact. IMPRESSION: No suspicious acute infiltrate. No significant change from prior.
[2017-03-20 12:28] VITALS: PULSE 96
[2017-03-20] MEDS ORDERED: predniSONE 50 MG TAB PO STA (13:11)
[2017-03-20] MEDS ORDERED: AMOXIC-POT CLAV 875-125MG 1 EACH TAB PO STA (13:11)
== END 2017-03-20 13:25 | disposition home or self-care (01) ==
LOC: EC 10:56
DX: J45.909 Unspecified asthma, uncomplicated (principal); H66.93 Otitis media, unspecified, bilateral; E78.5 Hyperlipidemia, unspecified; I10 Essential (primary) hypertension; I25.2 Old myocardial infarction; I42.9 Cardiomyopathy, unspecified; Z86.718 Personal history of other venous thrombosis and embolism; Z95.810 Presence of automatic (implantable) cardiac defibrillator; Z79.01 Long term (current) use of anticoagulants; Z79.02 Long term (current) use of antithrombotics/antiplatelets; Z79.899 Other long term (current) drug therapy; Z87.891 Personal history of nicotine dependence
CPT/HCPCS: 99283; 94640; 93005; 71020; J7512

== ENCOUNTER 2017-07-20 21:21 | Emergency (ER) | payer MEDICARE ==
[2017-07-20] MEDS ORDERED: IPRATROPIUM 0.5 MG/2.5 ML NEBU INHALATION STA (22:08)
[2017-07-20] MEDS ORDERED: KETOROLAC 30 MG/ML 1 ML VIAL IVP STA (22:08)
[2017-07-20] MEDS ORDERED: ALBUTEROL NEBULIZED 2.5 MG/3 ML INHALATION STA (22:08)
[2017-07-20] MEDS ORDERED: DEXAMETHASONE SOD PHOSPHATE 10 MG/ML 1 ML VIAL IV STA (22:08)
[2017-07-20] MEDS ORDERED: ONDANSETRON 4 MG/2 ML VIAL IVP STA (22:08)
--- NOTE | 2017-07-20 22:20 | ED ---
General Adult HPI - General Chief complaint: Shortness of Breath Stated complaint: pneumonia-revisit Time Seen by Provider: 07/20/17 21:52 Source: patient, RN notes reviewed, old records reviewed Mode of arrival: ambulatory Limitations: no limitations - History of Present Illness Initial comments: 51-year-old female presenting for evaluation of cough and dyspnea. Patient has past medical history of COPD, she states she had a recent hospital admission for pneumonia. She was discharged 2 days ago. Symptoms have failed to improve. She has continued productive cough. Subjective fever and chills. She has body aches, nasal congestion. She also complains of headache. Denies any central chest pain. Complains of left-sided pleuritic chest pain which was similar with her pneumonia. Also complains of some nausea, no significant vomiting. No abdominal pain. Patient is not currently on steroids. Patient called her physician and was instructed to present to the emergency department. - Related Data Home Medications Medication Instructions Recorded Confirmed Spironolactone [Aldactone] 25 mg PO DAILY 06/20/14 07/20/17 Warfarin Sodium [Coumadin] 5 mg PO SUMOTUTHFRSA 12/06/14 07/20/17 Atorvastatin Calcium [Lipitor] 10 mg PO HS 04/06/16 07/20/17 ALPRAZolam [Xanax] 0.25 mg PO TID PRN 07/17/17 07/20/17 Acetaminophen Tab [Tylenol] 1,000 mg PO ONCE PRN 07/17/17 07/20/17 Albuterol Nebulized [Ventolin 2.5 mg INHALATION RT-Q6H PRN 07/17/17 07/20/17 Nebulized] Albuterol Sulfate [Proventil Hfa] 1 - 2 puff INHALATION RT-Q6H PRN 07/17/1709/05 Amiodarone [Cordarone] 100 mg PO DAILY 07/17/17 07/20/17 Carvedilol [Coreg] 3.125 mg PO BID 07/17/17 07/20/17 Lisinopril [Zestril] 2.5 mg PO DAILY 07/17/17 07/20/17 [place]-3 Fatty Acids/Fish Oil [Fish 1 cap PO DAILY 07/17/17 07/20/17 Oil 1,000 mg Softgel] Warfarin [Coumadin] 2.5 mg PO WE 07/17/17 07/20/17 traZODone HCL 50 mg PO HS PRN 07/17/17 07/20/17 Previous Rx's Medication Instructions Recorded predniSONE 50 mg PO DAILY #5 tab 07/21/17 Allergies Allergy/AdvReac Type Severity Reaction Status Date / Time No Known Allergies Allergy Verified 07/20/17 21:50 Review of Systems ROS Statement: Those systems with pertinent positive or pertinent negative responses have been documented in the HPI. ROS Other: All systems not noted in ROS Statement are negative. Past Medical History Past Medical History: COPD, Hyperlipidemia, Hypertension, Myocardial Infarction ([place]) Additional Past Medical History / Comment(s): cardiomyopathy, DVT ( 4 yrs ago), Last Myocardial Infarction Date:: 4 yrs agp History of Any Multi-Drug Resistant Organisms: None Reported Past Surgical History: AICD, Cholecystectomy Additional Past Surgical History / Comment(s): defibrillator Past Anesthesia/Blood Transfusion Reactions: No Reported Reaction Type of Cardiac Device: AICD Device Placement Date:: 2012 Past Psychological History: Anxiety Smoking Status: Current every day smoker Past Alcohol Use History: None Reported Past Drug Use History: None Reported - Past Family History Mother Family Medical History: Diabetes Mellitus, Hypertension Father Family Medical History: No Reported History General Exam Limitations: no limitations General appearance: alert, in no apparent distress Head exam: Present: atraumatic, normocephalic Eye exam: Present: normal appearance, PERRL ENT exam: Present: normal exam Neck exam: Present: normal inspection. Absent: tenderness, meningismus Respiratory exam: Present: wheezes. Absent: respiratory distress Cardiovascular Exam: Present: regular rate, normal rhythm GI/Abdominal exam: Present: soft. Absent: distended, tenderness Extremities exam: Present: normal inspection, full ROM, normal capillary refill. Absent: pedal edema Back exam: Present: normal inspection, full ROM. Absent: tenderness Neurological exam: Present: alert, oriented X3, CN II-XII intact. Absent: motor sensory deficit Psychiatric exam: Present: normal affect, normal mood Skin exam: Present: warm, dry, intact. Absent: cyanosis, diaphoretic Course Vital Signs 07/20/17 07/20/17 07/20/17 21:35 22:07 22:25 Temperature 98.4 F Pulse Rate 106 H 91 Respiratory 18 20 20 Rate Blood Pressure 120/83 135/76 O2 Sat by Pulse 93 L 97 Oximetry 07/20/17 07/20/17 07/20/17 22:36 22:48 23:20 Temperature Pulse Rate 93 99 93 Respiratory 18 Rate Blood Pressure 121/68 O2 Sat by Pulse 96 Oximetry 07/21/17 00:12 Temperature Pulse Rate 87 Respiratory 18 Rate Blood Pressure 117/70 O2 Sat by Pulse 96 Oximetry EKG Findings - EKG Comments: EKG Findings:: EKG shows atrial sensed ventricular paced rhythm, rate of 100, DE interval 80, castration 184, QTC 570 Medical Decision Making - Medical Decision Making 51-year-old female presents with chief complaint of cough and dyspnea. Patient does have history of COPD. She also has multiple other complaints consistent with viral-like syndrome. Influenza is obtained, this is negative. White blood cell count 9.2, hemoglobin 14.4, electrolytes within normal limits troponin negative, BNP negative. Chest x-ray shows no focal pneumonia. On reevaluation after steroids, albuterol and Atrovent, patient has improved aeration, no wheezing on auscultation. She is offered observation for continued treatment, she would prefer to be discharged home and will follow-up with her primary care physician. She will return to emergency department with any change or worsening symptoms. She will be started on steroids, she will continue use her nebulizer at home. - Lab Data Result diagrams: 07/20/17 22:02 07/20/17 22:02 Lab Results 07/20/17 07/20/17 07/20/17 Range/Units 22:02 22:02 22:02 WBC 9.2 (3.8-10.6) k/uL RBC 5.02 (3.80-5.40) m/uL Hgb 14.4 (11.4-16.0) gm/dL Hct 42.9 (34.0-46.0) % MCV 85.4 (80.0-100.0) fL MCH 28.6 (25.0-35.0) pg MCHC 33.5 (31.0-37.0) g/dL RDW 15.6 H (11.5-15.5) % Plt Count 147 L (150-450) k/uL Neutrophils % 67 % Lymphocytes % 22 % Monocytes % 6 % Eosinophils % 3 % Basophils % 0 % Neutrophils # 6.2 (1.3-7.7) k/uL Lymphocytes # 2.0 (1.0-4.8) k/uL Monocytes # 0.6 (0-1.0) k/uL Eosinophils # 0.3 (0-0.7) k/uL Basophils # 0.0 (0-0.2) k/uL PT (9.0-12.0) sec INR (<1.2) APTT (22.0-30.0) sec Sodium 138 (137-145) mmol/L Potassium 4.1 (3.5-5.1) mmol/L Chloride 103 (98-107) mmol/L Carbon Dioxide 27 (22-30) mmol/L Anion Gap 8 mmol/L BUN 12 (7-17) mg/dL Creatinine 0.70 (0.52-1.04) mg/dL Est GFR (MDRD) Af Amer >60 (>60 ml/min/1.73 sqM) Est GFR (MDRD) Non-Af >60 (>60 ml/min/1.73 sqM) Glucose 95 (74-99) mg/dL Plasma Lactic Acid Carlos Eduardo (0.7-2.0) mmol/L Calcium 9.9 (8.4-10.2) mg/dL Magnesium 1.7 (1.6-2.3) mg/dL Total Bilirubin 0.6 (0.2-1.3) mg/dL AST 21 (14-36) U/L ALT 52 (9-52) U/L Alkaline Phosphatase 111 (38-126) U/L Total Creatine Kinase 57 (30-135) U/L CK-MB (CK-2) 0.8 (0.0-2.4) ng/mL CK-MB (CK-2) Rel Index 1.4 Troponin I <0.012 (0.000-0.034) ng/mL NT-Pro-B Natriuret Pep pg/mL Total Protein 6.7 (6.3-8.2) g/dL Albumin 3.9 (3.5-5.0) g/dL Influenza Type A RNA (Not Detectd) Influenza Type B (PCR) (Not Detectd) 07/20/17 07/20/17 07/20/17 Range/Units 22:02 22:02 22:02 WBC (3.8-10.6) k/uL RBC (3.80-5.40) m/uL Hgb (11.4-16.0) gm/dL Hct (34.0-46.0) % MCV (80.0-100.0) fL MCH (25.0-35.0) pg MCHC (31.0-37.0) g/dL RDW (11.5-15.5) % Plt Count (150-450) k/uL Neutrophils % % Lymphocytes % % Monocytes % % Eosinophils % % Basophils % % Neutrophils # (1.3-7.7) k/uL Lymphocytes # (1.0-4.8) k/uL Monocytes # (0-1.0) k/uL Eosinophils # (0-0.7) k/uL Basophils # (0-0.2) k/uL PT 10.9 (9.0-12.0) sec INR 1.1 (<1.2) APTT 22.5 (22.0-30.0) sec Sodium (137-145) mmol/L Potassium (3.5-5.1) mmol/L Chloride (98-107) mmol/L Carbon Dioxide (22-30) mmol/L Anion Gap mmol/L BUN (7-17) mg/dL Creatinine (0.52-1.04) mg/dL Est GFR (MDRD) Af Amer (>60 ml/min/1.73 sqM) Est GFR (MDRD) Non-Af (>60 ml/min/1.73 sqM) Glucose (74-99) mg/dL Plasma Lactic Acid Carlos Eduardo 0.9 (0.7-2.0) mmol/L Calcium (8.4-10.2) mg/dL Magnesium (1.6-2.3) mg/dL Total Bilirubin (0.2-1.3) mg/dL AST (14-36) U/L ALT (9-52) U/L Alkaline Phosphatase (38-126) U/L Total Creatine Kinase (30-135) U/L CK-MB (CK-2) (0.0-2.4) ng/mL CK-MB (CK-2) Rel Index Troponin I (0.000-0.034) ng/mL NT-Pro-B Natriuret Pep 132 pg/mL Total Protein (6.3-8.2) g/dL Albumin (3.5-5.0) g/dL Influenza Type A RNA (Not Detectd) Influenza Type B (PCR) (Not Detectd) 07/20/17 Range/Units 22:02 WBC (3.8-10.6) k/uL RBC (3.80-5.40) m/uL Hgb (11.4-16.0) gm/dL Hct (34.0-46.0) % MCV (80.0-100.0) fL MCH (25.0-35.0) pg MCHC (31.0-37.0) g/dL RDW (11.5-15.5) % Plt Count (150-450) k/uL Neutrophils % % Lymphocytes % % Monocytes % % Eosinophils % % Basophils % % Neutrophils # (1.3-7.7) k/uL Lymphocytes # (1.0-4.8) k/uL Monocytes # (0-1.0) k/uL Eosinophils # (0-0.7) k/uL Basophils # (0-0.2) k/uL PT (9.0-12.0) sec INR (<1.2) APTT (22.0-30.0) sec Sodium (137-145) mmol/L Potassium (3.5-5.1) mmol/L Chloride (98-107) mmol/L Carbon Dioxide (22-30) mmol/L Anion Gap mmol/L BUN (7-17) mg/dL Creatinine (0.52-1.04) mg/dL Est GFR (MDRD) Af Amer (>60 ml/min/1.73 sqM) Est GFR (MDRD) Non-Af (>60 ml/min/1.73 sqM) Glucose (74-99) mg/dL Plasma Lactic Acid Carlos Eduardo (0.7-2.0) mmol/L Calcium (8.4-10.2) mg/dL Magnesium (1.6-2.3) mg/dL Total Bilirubin (0.2-1.3) mg/dL AST (14-36) U/L ALT (9-52) U/L Alkaline Phosphatase (38-126) U/L Total Creatine Kinase (30-135) U/L CK-MB (CK-2) (0.0-2.4) ng/mL CK-MB (CK-2) Rel Index Troponin I (0.000-0.034) ng/mL NT-Pro-B Natriuret Pep pg/mL Total Protein (6.3-8.2) g/dL Albumin (3.5-5.0) g/dL Influenza Type A RNA Not Detected (Not Detectd) Influenza Type B (PCR) Not Detected (Not Detectd) Disposition Clinical Impression: Acute exacerbation of chronic obstructive airways disease Disposition: HOME SELF-CARE Condition: Good Instructions: Chronic Bronchitis (ED) Prescriptions: predniSONE 50 mg PO DAILY #5 tab Referrals: Daniel Mosqueda MD [Primary Care Provider] - 1-2 days Time of Disposition: 00:26
[2017-07-20 22:23] LABS: Basophils % (A) 0 %; Eosinophils # (A) 0.3 k/uL (0-0.7); Eosinophils % (A) 3 %; HCT 42.9 % (34.0-46.0); HGB 14.4 gm/dL (11.4-16.0); Lymphocytes % (A) 22 %; MCH 28.6 pg (25.0-35.0); MCHC 33.5 g/dL (31.0-37.0); MCV 85.4 fL (80.0-100.0); Mean Platelet Volume 9.1; Monocytes # (A) 0.6 k/uL (0-1.0); Monocytes % (A) 6 %; Neutrophils # (A) 6.2 k/uL (1.3-7.7); Neutrophils % (A) 67 %; Platelet Count 147 k/uL (150-450); RBC 5.02 m/uL (3.80-5.40); RDW 15.6 % (11.5-15.5); WBC 9.2 k/uL (3.8-10.6)
--- NOTE | 2017-07-20 22:31 | XR ---
EXAMINATION TYPE: XR chest 2V DATE OF EXAM: 07/20/2017 COMPARISON: 07/17/2017 HISTORY: Difficulty breathing TECHNIQUE: Frontal and lateral views of the chest are obtained. FINDINGS: Heart and mediastinum are normal. Lungs are clear of consolidation. There is some mild ret icular interstitial chronic density in the lingula left upper lobe. There is a left axillary pacemake r with the lead tip in the right ventricle. There are chest leads. There is no heart failure. IMPRESSION: There is scarring at the left lung base without change compared to last exam. Normal hea rt.
[2017-07-20 22:36] LABS: INR 1.1 (<1.2); Partial Thromboplastin Time 22.5 sec (22.0-30.0); Prothrombin Time 10.9 sec (9.0-12.0)
[2017-07-20 22:39] LABS: ALT 52 U/L (9-52); AST 21 U/L (14-36); Albumin 3.9 g/dL (3.5-5.0); Alkaline Phosphatase 111 U/L (38-126); Anion Gap 8 mmol/L; Blood Urea Nitrogen 12 mg/dL (7-17); Calcium 9.9 mg/dL (8.4-10.2); Carbon Dioxide 27 mmol/L (22-30); Chloride 103 mmol/L (98-107); Glucose 95 mg/dL (74-99); Magnesium 1.7 mg/dL (1.6-2.3); Potassium 4.1 mmol/L (3.5-5.1); Sodium 138 mmol/L (137-145); Total Bilirubin 0.6 mg/dL (0.2-1.3); Total Protein 6.7 g/dL (6.3-8.2)
[2017-07-20 22:46] LABS: Creatine Kinase 57 U/L (30-135)
[2017-07-20 22:58] LABS: Creatine Kinase MB 0.8 ng/mL (0.0-2.4); Troponin I <0.012 ng/mL (0.000-0.034)
[2017-07-20] MEDS ORDERED: HYDROmorphone 1 MG/ML 1 ML SYRINGE IVP STA (23:48)
[2017-07-20] MEDS ORDERED: ACETAMINOPHEN TAB 500 MG TAB PO STA (23:49)
[2017-07-21 23:14] VITALS: BP 143/89; PULSE 94; RESP 18; TEMP 97.8
== END 2017-07-21 00:42 | disposition home or self-care (01) ==
LOC: EC 21:21
DX: J44.1 Chronic obstructive pulmonary disease with (acute) exacerbation (principal); E78.5 Hyperlipidemia, unspecified; I10 Essential (primary) hypertension; I25.2 Old myocardial infarction; I42.9 Cardiomyopathy, unspecified; F17.200 Nicotine dependence, unspecified, uncomplicated; Z95.810 Presence of automatic (implantable) cardiac defibrillator; Z86.718 Personal history of other venous thrombosis and embolism; Z79.01 Long term (current) use of anticoagulants; Z79.899 Other long term (current) drug therapy
CPT/HCPCS: 99285 ×2; 96374 ×2; 96375 ×4; 36415; 94640; 93005; 83880; 80053; 82550; 82553; 83605; 83735; 84484; 85025; 85610; 85730; 87040; 87502; 71046; J1100; J2405; J1885; J1170

== ENCOUNTER 2017-11-29 13:53 | Observation (INO) | payer MEDICARE ==
[2017-11-29] MEDS ORDERED: LORazepam 2 MG/ML INJ IV STA ×2 (14:21→15:55)
[2017-11-29] MEDS ORDERED: MORPHINE SULFATE 4 MG/ML SYRINGE IVP STA (14:21)
[2017-11-29 14:43] LABS: Anisocytosis Slight; Basophils % (A) 0 %; Eosinophils # (A) 0.3 k/uL (0-0.7); Eosinophils % (A) 4 %; HGB 15.8 gm/dL (11.4-16.0); Lymphocytes # (A) 1.4 k/uL (1.0-4.8); Lymphocytes % (A) 21 %; MCHC 35.9 g/dL (31.0-37.0); MCV 78.1 fL (80.0-100.0); Microcytosis Slight; Monocytes # (A) 0.4 k/uL (0-1.0); Monocytes % (A) 6 %; Neutrophils # (A) 4.5 k/uL (1.3-7.7); Neutrophils % (A) 68 %; Platelet Count 166 k/uL (150-450); Poikilocytosis Slight; RBC 5.63 m/uL (3.80-5.40); RDW 16.4 % (11.5-15.5); WBC 6.6 k/uL (3.8-10.6)
--- NOTE | 2017-11-29 14:44 | ED ---
General Adult HPI - General Chief complaint: Chest Pain Stated complaint: chest pain Time Seen by Provider: 11/29/17 14:08 Source: patient, RN notes reviewed, old records reviewed Mode of arrival: wheelchair Limitations: no limitations - History of Present Illness Initial comments: This is a 51-year-old female the ER for evaluation of chest pain anterior chest pain rating to back. Patient does have history of heart disease has history of [place]. No travel history no sick contacts no fevers no cough or congestion, patient does admit to increased anxiety - Related Data Home Medications Medication Instructions Recorded Confirmed Spironolactone [Aldactone] 25 mg PO DAILY 06/20/14 11/29/17 Warfarin Sodium [Coumadin] 5 mg PO SUMOTUTHFRSA 12/06/14 11/29/17 Atorvastatin Calcium [Lipitor] 10 mg PO HS 04/06/16 11/29/17 ALPRAZolam [Xanax] 0.25 mg PO TID PRN 07/17/17 11/29/17 Acetaminophen Tab [Tylenol] 1,000 mg PO Q6H PRN 07/17/17 11/29/17 Albuterol Nebulized [Ventolin 2.5 mg INHALATION RT-Q6H PRN 07/17/17 11/29/17 Nebulized] Albuterol Sulfate [Proventil Hfa] 1 - 2 puff INHALATION RT-Q6H PRN 07/17/17 Amiodarone [Cordarone] 100 mg PO DAILY 07/17/17 11/29/17 Lisinopril [Zestril] 2.5 mg PO DAILY 07/17/17 11/29/17 [place]-3 Fatty Acids/Fish Oil [Fish 1 cap PO DAILY 07/17/17 11/29/17 Oil 1,000 mg Softgel] Warfarin [Coumadin] 7.5 mg PO WE 07/17/17 11/29/17 traZODone HCL 50 mg PO HS PRN 07/17/17 11/29/17 Previous Rx's Medication Instructions Recorded Carvedilol [Coreg] 6.25 mg PO BID-W/MEALS #60 tab 11/30/17 Allergies Allergy/AdvReac Type Severity Reaction Status Date / Time No Known Allergies Allergy Verified 11/29/17 14:46 Review of Systems ROS Statement: Those systems with pertinent positive or pertinent negative responses have been documented in the HPI. ROS Other: All systems not noted in ROS Statement are negative. Past Medical History Past Medical History: COPD, Hyperlipidemia, Hypertension, Myocardial Infarction ([place]) Additional Past Medical History / Comment(s): cardiomyopathy, DVT ( 4 yrs ago), Last Myocardial Infarction Date:: 4 yrs agp History of Any Multi-Drug Resistant Organisms: None Reported Past Surgical History: AICD, Cholecystectomy Additional Past Surgical History / Comment(s): defibrillator Past Anesthesia/Blood Transfusion Reactions: No Reported Reaction Type of Cardiac Device: AICD Device Placement Date:: 2012 Past Psychological History: Anxiety Smoking Status: Current every day smoker Past Alcohol Use History: None Reported Past Drug Use History: None Reported - Past Family History Mother Family Medical History: Diabetes Mellitus, Hypertension Father Family Medical History: No Reported History General Exam Limitations: no limitations General appearance: alert, in no apparent distress, anxious Head exam: Present: atraumatic, normocephalic, normal inspection Eye exam: Present: normal appearance, PERRL, EOMI. Absent: scleral icterus, conjunctival injection, periorbital swelling ENT exam: Present: normal exam, mucous membranes moist Neck exam: Present: normal inspection. Absent: tenderness, meningismus, lymphadenopathy Respiratory exam: Present: normal lung sounds bilaterally. Absent: respiratory distress, wheezes, rales, rhonchi, stridor Cardiovascular Exam: Present: regular rate, normal rhythm, normal heart sounds. Absent: systolic murmur, diastolic murmur, rubs, gallop, clicks GI/Abdominal exam: Present: soft, normal bowel sounds. Absent: distended, tenderness, guarding, rebound, rigid Extremities exam: Present: normal inspection, full ROM, normal capillary refill. Absent: tenderness, pedal edema, joint swelling, calf tenderness Back exam: Present: normal inspection Neurological exam: Present: alert, oriented X3, CN II-XII intact Psychiatric exam: Present: normal affect, normal mood Skin exam: Present: warm, dry, intact, normal color. Absent: rash Course Vital Signs 11/29/17 11/29/17 11/29/17 14:00 15:29 15:58 Temperature 97.9 F 98.0 F Pulse Rate 120 H 87 97 Pulse Rate [ Right Pulse Oximetery] Respiratory Rate Blood Pressure 184/101 137/83 124/78 O2 Sat by Pulse 96 96 98 Oximetry 11/29/17 16:00 Temperature Pulse Rate Pulse Rate [ 97 Right Pulse Oximetery] Respiratory 18 Rate Blood Pressure O2 Sat by Pulse Oximetry EKG Findings - EKG Comments: EKG Findings:: EKG shows sinus patient rhythm rate of 96, QRS 160 QTc 558 Medical Decision Making - Medical Decision Making 52 female the ER for evaluation, positive chest pain with a for chest pain observation, troponin is negative - Lab Data Result diagrams: 11/30/17 03:32 11/29/17 14:25 Lab Results 11/29/17 11/29/17 11/29/17 Range/Units 14:25 14:25 14:25 WBC 6.6 (3.8-10.6) k/uL RBC 5.63 H (3.80-5.40) m/uL Hgb 15.8 (11.4-16.0) gm/dL Hct 44.0 (34.0-46.0) % MCV 78.1 L (80.0-100.0) fL MCH 28.0 (25.0-35.0) pg MCHC 35.9 (31.0-37.0) g/dL RDW 16.4 H (11.5-15.5) % Plt Count 166 (150-450) k/uL Neutrophils % 68 % Lymphocytes % 21 % Monocytes % 6 % Eosinophils % 4 % Basophils % 0 % Neutrophils # 4.5 (1.3-7.7) k/uL Lymphocytes # 1.4 (1.0-4.8) k/uL Monocytes # 0.4 (0-1.0) k/uL Eosinophils # 0.3 (0-0.7) k/uL Basophils # 0.0 (0-0.2) k/uL Poikilocytosis Slight Anisocytosis Slight Microcytosis Slight PT (9.0-12.0) sec INR (<1.2) APTT (22.0-30.0) sec D-Dimer (<0.60) mg/L FEU Sodium 143 (137-145) mmol/L Potassium 4.1 (3.5-5.1) mmol/L Chloride 104 (98-107) mmol/L Carbon Dioxide 26 (22-30) mmol/L Anion Gap 13 mmol/L BUN 12 (7-17) mg/dL Creatinine 0.77 (0.52-1.04) mg/dL Est GFR (CKD-EPI)AfAm >90 (>60 ml/min/1.73 sqM) Est GFR (CKD-EPI)NonAf 88 (>60 ml/min/1.73 sqM) Glucose 98 (74-99) mg/dL Calcium 9.5 (8.4-10.2) mg/dL Magnesium 1.9 (1.6-2.3) mg/dL Total Bilirubin 0.5 (0.2-1.3) mg/dL AST 24 (14-36) U/L ALT 40 (9-52) U/L Alkaline Phosphatase 127 H (38-126) U/L Total Creatine Kinase 71 (30-135) U/L CK-MB (CK-2) 1.3 (0.0-2.4) ng/mL CK-MB (CK-2) Rel Index 1.8 Troponin I <0.012 (0.000-0.034) ng/mL Total Protein 6.9 (6.3-8.2) g/dL Albumin 4.3 (3.5-5.0) g/dL Lipase 73 (23-300) U/L // Range/Units 14:25 WBC (3.8-10.6) k/uL RBC (3.80-5.40) m/uL Hgb (11.4-16.0) gm/dL Hct (34.0-46.0) % MCV (80.0-100.0) fL MCH (25.0-35.0) pg MCHC (31.0-37.0) g/dL RDW (11.5-15.5) % Plt Count (150-450) k/uL Neutrophils % % Lymphocytes % % Monocytes % % Eosinophils % % Basophils % % Neutrophils # (1.3-7.7) k/uL Lymphocytes # (1.0-4.8) k/uL Monocytes # (0-1.0) k/uL Eosinophils # (0-0.7) k/uL Basophils # (0-0.2) k/uL Poikilocytosis Anisocytosis Microcytosis PT 10.1 (9.0-12.0) sec INR 1.0 (<1.2) APTT 22.2 (22.0-30.0) sec D-Dimer 0.59 (<0.60) mg/L FEU Sodium (137-145) mmol/L Potassium (3.5-5.1) mmol/L Chloride (98-107) mmol/L Carbon Dioxide (22-30) mmol/L Anion Gap mmol/L BUN (7-17) mg/dL Creatinine (0.52-1.04) mg/dL Est GFR (CKD-EPI)AfAm (>60 ml/min/1.73 sqM) Est GFR (CKD-EPI)NonAf (>60 ml/min/1.73 sqM) Glucose (74-99) mg/dL Calcium (8.4-10.2) mg/dL Magnesium (1.6-2.3) mg/dL Total Bilirubin (0.2-1.3) mg/dL AST (14-36) U/L ALT (9-52) U/L Alkaline Phosphatase (38-126) U/L Total Creatine Kinase (30-135) U/L CK-MB (CK-2) (0.0-2.4) ng/mL CK-MB (CK-2) Rel Index Troponin I (0.000-0.034) ng/mL Total Protein (6.3-8.2) g/dL Albumin (3.5-5.0) g/dL Lipase (23-300) U/L - Radiology Data Radiology results: report reviewed (Chest x-rays negative for acute disease), image reviewed Critical Care Time Critical Care Time: Yes Total Critical Care Time: 31 Disposition Clinical Impression: Chest pain Disposition: ADMITTED IP TO THIS [facility] Condition: Undetermined Is patient prescribed a controlled substance at d/c from ED?: No
[2017-11-29 14:49] LABS: ALT 40 U/L (9-52); AST 24 U/L (14-36); Albumin 4.3 g/dL (3.5-5.0); Alkaline Phosphatase 127 U/L (38-126); Anion Gap 13 mmol/L; Blood Urea Nitrogen 12 mg/dL (7-17); Calcium 9.5 mg/dL (8.4-10.2); Carbon Dioxide 26 mmol/L (22-30); Chloride 104 mmol/L (98-107); Glucose 98 mg/dL (74-99); Lipase 73 U/L (23-300); Magnesium 1.9 mg/dL (1.6-2.3); Potassium 4.1 mmol/L (3.5-5.1); Sodium 143 mmol/L (137-145); Total Bilirubin 0.5 mg/dL (0.2-1.3); Total Protein 6.9 g/dL (6.3-8.2)
[2017-11-29 14:52] LABS: Creatine Kinase 71 U/L (30-135)
--- NOTE | 2017-11-29 14:58 | XR ---
EXAMINATION TYPE: XR chest 2V DATE OF EXAM: 11/29/2017 COMPARISON: 07/20/2017 TECHNIQUE: PA and lateral views submitted. HISTORY: Pain FINDINGS: The lungs are clear and there is no pneumothorax, pleural effusion, or focal pneumonia. Triple lead pacemaker noted. Hyperinflation suggests COPD. Diffuse osteopenia and degenerative change of the spi ne. No overt failure. Biapical pleural thickening. IMPRESSION: 1. No acute process.
[2017-11-29 15:06] LABS: Creatine Kinase MB 1.3 ng/mL (0.0-2.4); Troponin I <0.012 ng/mL (0.000-0.034)
[2017-11-29 15:13] LABS: D-Dimer 0.59 mg/L FEU (<0.60); Partial Thromboplastin Time 22.2 sec (22.0-30.0); Prothrombin Time 10.1 sec (9.0-12.0)
[2017-11-29] MEDS ORDERED: HEPARIN SODIUM,PORCINE 5,000 UNIT/ML 1 ML VIAL IV ONE (15:22)
[2017-11-29] MEDS ORDERED: NITROGLYCERIN SL TABS 0.4 MG TAB SUBLINGUAL PRN (15:22)
[2017-11-29] MEDS: SODIUM CHLORIDE 0.9% 1,000 ML IV SCH (15:30)
[2017-11-29] MEDS ORDERED: HEPARIN SODIUM,PORCINE/D5W PMX 25,000 UNIT in DEXTROSE/WATER 1 500ML.BAG IV SCH (15:30)
[2017-11-29] MEDS ORDERED: LORazepam 2 MG/ML INJ IV PRN (15:55)
[2017-11-29 17:05] VITALS: BMI 34.9
[2017-11-29] MEDS ORDERED: traZODone HCL 50 MG TAB PO PRN (19:42)
[2017-11-29] MEDS ORDERED: ALBUTEROL INHALER 60 PUFF/8 GM INHALER INHALATION PRN (19:42)
[2017-11-29] MEDS ORDERED: ACETAMINOPHEN TAB 500 MG TAB PO PRN (19:42)
[2017-11-29] MEDS ORDERED: ALBUTEROL NEBULIZED 2.5 MG/3 ML INHALATION PRN (19:42)
[2017-11-29 19:44] VITALS: RESP 16
[2017-11-29] MEDS ORDERED: WARFARIN 5 MG TAB PO SCH (20:00)
[2017-11-29] MEDS: SPIRONOLACTONE 25 MG TAB PO SCH (20:35)
[2017-11-29] MEDS: BUTALB/APAP/CAFF 50-325-40MG TAB PO PRN (20:35)
[2017-11-29] MEDS ORDERED: WARFARIN 2.5 MG TAB PO ONE (20:45)
[2017-11-29] MEDS ORDERED: CARVEDILOL 3.125 MG TAB PO SCH (21:00)
[2017-11-29] MEDS ORDERED: ATORVASTATIN 10 MG TAB PO SCH (21:00)
[2017-11-29] MEDS: HEPARIN SODIUM,PORCINE 5,000 UNIT/ML 1 ML VIAL IV PRN (21:44)
[2017-11-29] MEDS: LORazepam 2 MG/ML INJ IV PRN (21:45)
[2017-11-29 21:47] LABS: Creatine Kinase 75 U/L (30-135)
[2017-11-29 22:00] LABS: Creatine Kinase MB 1.5 ng/mL (0.0-2.4); Troponin I <0.012 ng/mL (0.000-0.034)
[2017-11-30 04:01] LABS: Mean Platelet Volume 7.9; Platelet Count 146 k/uL (150-450)
[2017-11-30 04:13] LABS: Cholesterol 238 mg/dL (<200); HDL Cholesterol 30 mg/dL (40-60)
[2017-11-30 04:20] LABS: Triglycerides 664 mg/dL (<150)
[2017-11-30 04:27] LABS: Prothrombin Time 10.2 sec (9.0-12.0)
[2017-11-30 04:44] LABS: Creatine Kinase 58 U/L (30-135)
[2017-11-30] MEDS: SODIUM CHLORIDE 0.9% 1,000 ML IV SCH (04:49)
[2017-11-30 04:56] LABS: Creatine Kinase MB 1.2 ng/mL (0.0-2.4); Troponin I <0.012 ng/mL (0.000-0.034)
[2017-11-30] MEDS: HEPARIN SODIUM,PORCINE 5,000 UNIT/ML 1 ML VIAL IV PRN (04:56)
[2017-11-30] MEDS: BUTALB/APAP/CAFF 50-325-40MG TAB PO PRN ×2 (07:39→14:13)
[2017-11-30] MEDS ORDERED: ASPIRIN 325 MG TAB PO SCH (09:00)
[2017-11-30] MEDS ORDERED: ATORVASTATIN 80 MG TAB PO SCH (09:00)
[2017-11-30] MEDS ORDERED: AMIODARONE 100 MG TAB PO SCH (09:00)
[2017-11-30] MEDS ORDERED: LISINOPRIL 2.5 MG TAB PO SCH (09:00)
--- NOTE | 2017-11-30 09:20 | ECHOF ---
Referral Reason:cp MEASUREMENTS -------- HEIGHT: 172.7 cm WEIGHT: 104.3 kg BP: 140/68 IVSd: 0.7 cm (0.6 - 1.1) LVIDd: 5.4 cm (3.9 - 5.3) LVPWd: 0.7 cm (0.6 - 1.1) IVSs: 1.1 cm LVIDs: 4.8 cm LVPWs: 0.9 cm Ao Diam: 3.2 cm (2.0 - 3.7) AV Cusp: 1.8 cm (1.5 - 2.6) LA Diam: 3.5 cm (2.7 - 3.8) MV E Shaheed: 0.99 m/s MV DecT: 108 ms MV A Shaheed: 1.14 m/s MV E/A Ratio: 0.86 FINDINGS -------- Pacerwire seen in RV and RA. This was a technically difficult study with suboptimal views. The left ventricle is mildly dilated. Left ventricular wall thickness is normal. There is severe global hypokinesis of LV . Overall left ventricular systolic function is severely impaired with, an EF between 20 - 25 %. The right ventricle is normal in size and function. The left atrium is normal in size. The right atrium is normal in size. Lumason used The aortic valve is trileaflet, and appears structurally normal. No aortic stenosis or regurgitation. The mitral valve is normal. There is trace mitral regurgitation. Trace tricuspid regurgitation present. The right ventricular systolic pressure, as measured by Dopp ler, is {RVSP}. The pulmonic valve was not well visualized. There is no pulmonic regurgitation present. The aortic root size is normal. There is no pericardial effusion. CONCLUSIONS -------- 1. Pacerwire seen in RV and RA. 2. This was a technically difficult study with suboptimal views. 3. The left ventricle is mildly dilated. 4. Left ventricular wall thickness is normal. 5. There is severe global hypokinesis of LV . 6. Overall left ventricular systolic function is severely impaired with, an EF between 20 - 25 %. 7. The right ventricle is normal in size and function. 8. The left atrium is normal in size. 9. Lumason used 10. The aortic valve is trileaflet, and appears structurally normal. No aortic stenosis or regurgitat ion. 11. There is trace mitral regurgitation. 12. Trace tricuspid regurgitation present. 13. The right ventricular systolic pressure, as measured by Doppler, is {RVSP}. 14. There is no pulmonic regurgitation present. 15. The aortic root size is normal. 16. There is no pericardial effusion. [employer] SUPERVISOR: Leah Olmedo RDCS
[2017-11-30] MEDS: SPIRONOLACTONE 25 MG TAB PO SCH (09:55)
[2017-11-30] MEDS: LORazepam 2 MG/ML INJ IV PRN (10:01)
--- NOTE | 2017-11-30 10:55 | P.CRDCN ---
History of Present Illness Consult date: 11/30/17 History of present illness: Mrs. Beth is a pleasant 52-year-old female past medical history significant for non-ischemic cardiomyopathy s/p AICD placement, history of ventricular fibrillation, possible thrombus noted in apex 2012 on manager terminal anticoagulation with coumadin, dyslipidemia, hypertension, COPD and chronic nicotine dependence. She underwent cardiac catheterization in 2012 which revealed normal coronary arteries. She follows with Dr. Reece in the office. We have been asked to see her in consultation for chest pain. She states she has had a migraine headache for the previous couple of days with nausea. For this reason she had no been taking her medications. Then yesterday she started to experience a pain in the left shoulder that radiated down into the left upper arm, left neck and precordial region. The pain persisted for approximately 2-3 hours with mild nausea, dizziness and diaphoresis. She denies associated palpitations, vomiting or shortness of breath. The pain ultimately went away on its own with no specific alleviating factor. She continues to have a headache and nausea. EKG is ventricular paced rhythm. Chest xray is negative for an acute cardiopulmonary process. Laboratory data reviewed, hemoglobin 15.8, platelets 146, d-dimer 0.59, sodium 143, potassium 4.1, magnesium 1.9 creatinine 0.77, cardiac enzymes negative 3, INR 1.0, triglycerides 664, HDL 30, AST 24, ALT 40. Current cardiac medications include Coumadin, Aldactone 25 mg daily, lisinopril 2.5 mg daily, carvedilol 3.125 mg twice a day, atorvastatin 10 mg daily and amiodarone 100 mg daily. She also takes trazodone, albuterol and Xanax. Most recent echocardiogram performed in the office reveals decreased ventricular systolic function with ejection fraction 25% with mild concentric left ventricular hypertrophy. Review of Systems At the time of my exam: CONSTITUTIONAL: Denies fever. Denies chills. EYES: Denies blurred vision. Denies vision changes. Denies eye pain. EARS, NOSE, MOUTH & THROAT: Denies headache. Denies sore throat. Denies ear pain. CARDIOVASCULAR: Denies chest pain. Denies shortness of breath. Denies orthopnea. Denies PND. Denies palpitations. RESPIRATORY: Denies cough. GASTROINTESTINAL: Denies abdominal pain. Denies diarrhea. Denies constipation. Denies nausea. Denies vomiting. MUSCULOSKELETAL: Denies myalgias. INTEGUMENTARY: Denies pruitis. Denies rash. NEUROLOGIC: Denies numbness. Denies tingling. Denies weakness. Complains of headache. PSYCHIATRIC: Denies anxiety. Denies depression. ENDOCRINE: Denies fatigue. Denies weight change. Denies polydipsia. Denies polyurina. GENITOURINARY: Denies burning, hematuria or urgency with micturation. HEMATOLOGIC: Denies history of anemia. Denies bleeding. Past Medical History Past Medical History: COPD, Hyperlipidemia, Hypertension, Myocardial Infarction ([place]) Additional Past Medical History / Comment(s): cardiomyopathy, DVT ( 4 yrs ago), Last Myocardial Infarction Date:: 4 yrs ago History of Any Multi-Drug Resistant Organisms: None Reported Past Surgical History: AICD, Cholecystectomy, Pacemaker Additional Past Surgical History / Comment(s): defibrillator Past Anesthesia/Blood Transfusion Reactions: No Reported Reaction Type of Cardiac Device: AICD Device Placement Date:: 2012 Past Psychological History: Anxiety Smoking Status: Current every day smoker Past Alcohol Use History: None Reported Past Drug Use History: None Reported - Past Family History Mother Family Medical History: Diabetes Mellitus, Hypertension Father Family Medical History: No Reported History Medications and Allergies Home Medications Medication Instructions Recorded Confirmed Type Spironolactone [Aldactone] 25 mg PO DAILY 06/20/14 11/29/17 History Warfarin Sodium [Coumadin] 5 mg PO SUMOTUTHFRSA 12/06/14 11/29/17 History Atorvastatin Calcium [Lipitor] 10 mg PO HS 04/06/16 11/29/17 History ALPRAZolam [Xanax] 0.25 mg PO TID PRN 07/17/17 11/29/17 History Acetaminophen Tab [Tylenol] 1,000 mg PO Q6H PRN 07/17/17 11/29/17 History Albuterol Nebulized [Ventolin 2.5 mg INHALATION RT-Q6H PRN 07/17/17 11/29/17 History Nebulized] Albuterol Sulfate [Proventil Hfa] 1 - 2 puff INHALATION RT-Q6H PRN 07/17/17 History Amiodarone [Cordarone] 100 mg PO DAILY 07/17/17 11/29/17 History Carvedilol [Coreg] 3.125 mg PO BID 07/17/17 11/29/17 History Lisinopril [Zestril] 2.5 mg PO DAILY 07/17/17 11/29/17 History [place]-3 Fatty Acids/Fish Oil [Fish 1 cap PO DAILY 07/17/17 11/29/17 History Oil 1,000 mg Softgel] Warfarin [Coumadin] 7.5 mg PO WE 07/17/17 11/29/17 History traZODone HCL 50 mg PO HS PRN 07/17/17 11/29/17 History Allergies Allergy/AdvReac Type Severity Reaction Status Date / Time No Known Allergies Allergy Verified 11/29/17 14:46 Physical Exam Vitals: Vital Signs Temp Pulse Pulse Resp BP BP Pulse Ox 11/30/17 08:00 97.9 F 83 16 130/63 91 L 11/30/17 04:00 97.9 F 77 16 140/68 91 L 11/30/17 03:56 16 11/29/17 23:41 16 11/29/17 23:35 98.2 F 88 16 129/73 94 L 11/29/17 20:00 16 11/29/17 19:43 98.3 F 98 16 141/79 96 11/29/17 16:47 98.0 F 97 18 143/76 95 11/29/17 16:00 97 18 11/29/17 15:58 98.0 F 97 18 124/78 98 11/29/17 15:29 87 18 137/83 96 11/29/17 14:00 97.9 F 120 H 18 184/101 96 Intake and Output 11/29/17 11/30/17 11/30/17 22:59 06:59 14:59 Intake Total 115.333 668.491 Balance 115.333 668.491 Intake: IV 480 Heparin Sodium,Porcine/ 80 D5w Pmx 25,000 unit In Dextrose/Water 1 500ml. bag @ 9.6 UNITS/KG/HR 20. 03 mls/hr IV .Q24H [facility] Rx #:[id number] Sodium Chloride 0.9% 1, 400 000 ml @ 100 mls/hr IV . Q10H [facility] Rx#:[id number] Intake, IV Titration 115.333 188.491 Amount Heparin Sodium,Porcine/ 115.333 188.491 D5w Pmx 25,000 unit In Dextrose/Water 1 500ml. bag @ 9.6 UNITS/KG/HR 20. 03 mls/hr IV .Q24H [facility] Rx #:[id number] Other: Voiding Method Toilet Toilet # Voids 2 Weight 104.326 kg Blood pressure 130/63 heart rate 83 afebrile maintaining oxygen saturation on room air GENERAL: This is a 52-year-old occasion female in no apparent distress at the time of my examination. Obese. HEENT: Head is atraumatic, normocephalic. Pupils are equal, round. Sclerae anicteric. Conjunctivae are clear. Mucous membranes of the mouth are moist. Neck is supple. There is no jugular venous distention. No carotid bruit is heard. LUNGS: Clear to auscultation no wheezes, rales or rhonchi. No chest wall tenderness is noted on palpation or with deep breathing. HEART: Regular rate and rhythm without murmurs, rubs or gallops. S1 and S2 heard. ABDOMEN: Soft, nontender. Bowel sounds are heard. No organomegaly noted. EXTREMITIES: No evidence of peripheral edema and no calf tenderness noted. VASCULAR: Radial and dorsalis pedis pulses palpated, no evidence of clubbing. NEUROLOGIC: Patient is awake, alert and oriented x3. Results 11/30/17 03:32 11/29/17 14:25 Cardiac Enzymes 11/29/17 11/29/17 11/29/17 Range/Units 14:25 14:25 21:12 AST 24 (14-36) U/L CK-MB (CK-2) 1.3 1.5 (0.0-2.4) ng/mL Troponin I <0.012 <0.012 (0.000-0.034) ng/mL 11/30/17 Range/Units 03:32 AST (14-36) U/L CK-MB (CK-2) 1.2 (0.0-2.4) ng/mL Troponin I <0.012 (0.000-0.034) ng/mL Coagulation 11/29/17 11/29/17 11/30/17 Range/Units 14:25 21:12 03:32 PT 10.1 10.2 (9.0-12.0) sec APTT 22.2 24.3 (22.0-30.0) sec 11/30/17 Range/Units 03:32 PT (9.0-12.0) sec APTT 28.0 (22.0-30.0) sec Lipids 11/30/17 Range/Units 03:32 Triglycerides 664 H (<150) mg/dL Cholesterol 238 H (<200) mg/dL HDL Cholesterol 30 L (40-60) mg/dL CBC 11/29/17 11/30/17 Range/Units 14:25 03:32 WBC 6.6 (3.8-10.6) k/uL RBC 5.63 H (3.80-5.40) m/uL Hgb 15.8 (11.4-16.0) gm/dL Hct 44.0 (34.0-46.0) % Plt Count 166 146 L (150-450) k/uL Comprehensive Metabolic Panel 11/29/17 Range/Units 14:25 Sodium 143 (137-145) mmol/L Potassium 4.1 (3.5-5.1) mmol/L Chloride 104 (98-107) mmol/L Carbon Dioxide 26 (22-30) mmol/L BUN 12 (7-17) mg/dL Creatinine 0.77 (0.52-1.04) mg/dL Glucose 98 (74-99) mg/dL Calcium 9.5 (8.4-10.2) mg/dL AST 24 (14-36) U/L ALT 40 (9-52) U/L Alkaline Phosphatase 127 H (38-126) U/L Total Protein 6.9 (6.3-8.2) g/dL Albumin 4.3 (3.5-5.0) g/dL Current Medications Generic Name Dose Route Start Last Admin Trade Name Freq PRN Reason Stop Dose Admin Acetaminophen 1,000 mg 11/29/17 19:42 Tylenol Tab PO Q6H PRN Mild Pain Acetaminophen/Butalbital/Caffeine 2 each 11/29/17 19:48 11/30/17 07:39 Fioricet 50-325-40 PO 2 each Q4HR PRN Administration Headache Albuterol Sulfate 2.5 mg 11/29/17 19:42 Ventolin Nebulized INHALATION RT-Q6H PRN Shortness Of Breath Amiodarone HCl 100 mg 11/30/17 09:00 Cordarone PO DAILY [facility] Aspirin 325 mg 11/30/17 09:00 Aspirin PO DAILY [facility] Atorvastatin Calcium 10 mg 11/29/17 21:00 11/29/17 20:35 Lipitor PO 10 mg HS [facility] Administration Carvedilol 3.125 mg 11/29/17 21:00 11/29/17 20:35 Coreg PO 3.125 mg BID-W/MEALS [facility] Administration Heparin Sodium (Porcine) 0 unit 11/29/17 15:22 11/30/17 04:56 Heparin IV 4,000 unit Q6HR PRN Administration Low PTT Protocol Heparin Sodium/Dextrose 25,000 500 mls @ 20.03 mls/hr 11/29/17 15:30 04:49 unit/ IV Solution IV 15.58 units/kg/hr .Q24H [facility] 32.5 mls/hr Protocol Titration 9.6 UNITS/KG/HR Sodium Chloride 1,000 mls @ 100 mls/hr 11/29/17 15:30 11/30/17 04:49 Saline 0.9% IV Not Given .Q10H [facility] Lisinopril 2.5 mg 11/30/17 09:00 Zestril PO DAILY [facility] Lorazepam 0.5 mg 11/29/17 19:47 11/29/17 21:45 Ativan IV 0.5 mg Q6HR PRN Administration Anxiety Nitroglycerin 0.4 mg 11/29/17 15:22 Nitrostat SUBLINGUAL Q5M PRN Chest Pain Spironolactone 25 mg 11/29/17 19:45 11/29/17 20:35 Aldactone PO 25 mg DAILY [facility] Administration Trazodone HCl 50 mg 11/29/17 19:42 11/29/17 22:19 Desyrel PO 50 mg HS PRN Administration Insomnia Warfarin Sodium 5 mg 12/01/17 18:00 Coumadin PO WE [facility] Warfarin Sodium 7.5 mg 11/30/17 18:00 Coumadin PO [id number] [facility] Intake and Output 11/29/17 11/30/17 11/30/17 22:59 06:59 14:59 Intake Total 115.333 668.491 Balance 115.333 668.491 Intake: IV 480 Heparin Sodium,Porcine/ 80 D5w Pmx 25,000 unit In Dextrose/Water 1 500ml. bag @ 9.6 UNITS/KG/HR 20. 03 mls/hr IV .Q24H [facility] Rx #:[id number] Sodium Chloride 0.9% 1, 400 000 ml @ 100 mls/hr IV . Q10H [facility] Rx#:[id number] Intake, IV Titration 115.333 188.491 Amount Heparin Sodium,Porcine/ 115.333 188.491 D5w Pmx 25,000 unit In Dextrose/Water 1 500ml. bag @ 9.6 UNITS/KG/HR 20. 03 mls/hr IV .Q24H [facility] Rx #:[id number] Other: Voiding Method Toilet Toilet # Voids 2 Weight 104.326 kg 11/30/17 03:32 11/29/17 14:25 Assessment and Plan Assessment: ASSESSMENT 1. Chest pain, atypical. An acute coronary event has been ruled out with negative cardiac enzymes. 2. History of nonischemic cardiomyopathy, EF 25%. 3. History of ventricular fibrillation, on amiodarone 4. Dyslipidemia, uncontrolled 5. Hypertension 6. Status post BiV pacemaker implantation 7. Chronic nicotine dependence 8. Obesity PLAN Office records have been reviewed. Obtain 2-D echocardiogram and Doppler study to assess cardiac structure and function. An acute coronary event has been ruled out. Symptoms of chest discomfort are atypical for an acute coronary syndrome. Increase Coreg to 6.25 mg daily. Check thyroid function. Smoking cessation discussed along with lifestyle modifications for weight loss. Follow-up with Dr. Magana in 2-3 weeks. Thank you kindly for this consultation. Nurse Practitioner note has been reviewed, I agree with a documented findings and plan of care. Patient was seen and examined.
[2017-11-30 11:04] LABS: T4, Free (Free Thyroxine) 2.82 ng/dL (0.78-2.19)
[2017-11-30 12:26] VITALS: BP 140/69; PULSE 86; TEMP 98.5
--- NOTE | 2017-11-30 12:52 | P.PN ---
Progress Note - Text Thyroid panel ordered reveals evidence of hyperthyroid. She will require an endocrinology evaluation. This can be done as an outpatient per primary medical team.
--- NOTE | 2017-11-30 15:13 | HP ---
HISTORY AND PHYSICAL CHIEF COMPLAINT: Chest pain. HISTORY OF PRESENT ILLNESS: This is another of many admissions for this 52-year-old white female who has a long- standing history of various problems including depression, congestive heart failure, coronary artery disease, cardiomyopathy, pacemaker along with depression and anxiety. She also still smokes. She came into the emergency room with pain in her chest which she describes variably as being sharp and then dull. She did have some associated diaphoresis and shortness of breath, but no nausea. Studies in the ER were negative. Past medical history, family history, personal and social history are all otherwise unremarkable and unchanged. She is not allergic to any medication. She is on: 1. Carvedilol. 2. Wellbutrin. 3. Spironolactone. 4. Amiodarone. 5. Vitamin D. 6. Advair. 7. Lisinopril. 8. Atorvastatin. 9. Xanax. 10.Trazodone. 11.Coumadin. She has had no other complaints such as a change in vision, hearing, hemoptysis, abdominal pain, hematemesis, melena, renal disease, etc. She currently is experiencing a migraine headache. PHYSICAL EXAMINATION: Blood pressure is 96/62 with a pulse of 112, respirations 18, temperature 98.5. In general she appeared to be in no acute distress but somewhat uncomfortable. The face was flushed. Head, ears, eyes, nose, mouth, and throat were normal. Chest is clear to auscultation and percussion. The cardiac exam demonstrated what sounded like sinus tachycardia and the abdomen is soft and nontender. EXTREMITIES: Normal. Neurologically, she is intact. IMPRESSION: 1. Chest pain. 2. History of coronary artery disease. 3. Cardiomyopathy. 4. Congestive heart failure. 5. Nicotine abuse. 6. Depression. 7. History of viral cardiomyopathy. 8. Coronary artery disease. 9. History of myocardial infarction. 10.Pacemaker. PLAN: 1. Bed rest. 2. IV fluids. 3. Serial EKGs and enzymes. 4. Cardiology consult. MMODL / IJN: [id number] /
[2017-11-30] MEDS ORDERED: busPIRone HCl 5 MG TAB PO SCH (16:00)
[2017-11-30] MEDS ORDERED: CARVEDILOL 6.25 MG TAB PO SCH (17:30)
[2017-11-30] MEDS ORDERED: WARFARIN 7.5 MG TAB PO SCH (18:00)
--- NOTE | 2017-12-01 13:53 | DS ---
DISCHARGE SUMMARY CHIEF COMPLAINT: Chest pain. HISTORY OF PRESENT ILLNESS AND PHYSICAL EXAM: Details of details of this lady's history and physical can be found in the initial workup. LABORATORY STUDIES: While she was in the hospital she had laboratory studies details which can be found laboratory section of her chart. COURSE IN HOSPITAL: After admission she was placed on bedrest, started on intravenous fluids and she had serial EKGs and enzymes. She was seen by Cardiology. Studies were negative and it was felt it was safer to be discharged and they had no further recommendations. FINAL DIAGNOSES: 1. Chest pain. 2. History of coronary artery disease. OPERATIONS: None. CONSULTATION: Cardiology. She is improved. MMODL / IJN: [id number] /
[2017-12-01] MEDS ORDERED: WARFARIN 7.5 MG TAB PO SCH (18:00)
[2017-12-01] MEDS ORDERED: WARFARIN 5 MG TAB PO SCH (18:00)
== END 2017-11-30 15:15 | disposition home or self-care (01) ==
LOC: EC 13:53 → 3OBS 15:22
PROVIDERS: ADMIT Family Medicine; ATTEND Family Medicine
DX: R07.89 Other chest pain (principal); I25.10 Atherosclerotic heart disease of native coronary artery without angina pectoris; G43.909 Migraine, unspecified, not intractable, without status migrainosus; F41.9 Anxiety disorder, unspecified; J44.9 Chronic obstructive pulmonary disease, unspecified; I11.0 Hypertensive heart disease with heart failure; I50.9 Heart failure, unspecified; E78.5 Hyperlipidemia, unspecified; I42.9 Cardiomyopathy, unspecified; E05.90 Thyrotoxicosis, unspecified without thyrotoxic crisis or storm; F32.9 Major depressive disorder, single episode, unspecified; F17.200 Nicotine dependence, unspecified, uncomplicated; I49.01 Ventricular fibrillation; E66.9 Obesity, unspecified; Z68.35 Body mass index [BMI] 35.0-35.9, adult; I25.2 Old myocardial infarction; Z79.01 Long term (current) use of anticoagulants; Z79.899 Other long term (current) drug therapy; Z86.718 Personal history of other venous thrombosis and embolism; Z95.810 Presence of automatic (implantable) cardiac defibrillator; Z90.49 Acquired absence of other specified parts of digestive tract; Z83.3 Family history of diabetes mellitus; Z82.49 Family history of ischemic heart disease and other diseases of the circulatory system
CPT/HCPCS: 99291 ×2; 96365 ×2; 96375 ×3; 96376 ×4; 96366 ×2; 36415; 93005; 85379; 84439; 80061; 80053; 84443; 82550 ×2; 82553 ×2; 83690; 83735; 84484 ×2; 85025; 85049; 85610 ×2; 85730 ×2; 71046; G0378 ×2; C8929; J2060 ×2; J2270; J1644 ×3; Q9950; 93306

== ENCOUNTER 2017-12-15 11:49 | Emergency (ER) | payer MEDICARE ==
[2017-12-15 12:10] VITALS: RESP 18
[2017-12-15 12:11] LABS: Glucose,Whole Blood 106 mg/dL (75-99)
[2017-12-15] MEDS ORDERED: MECLIZINE 12.5 MG TAB PO STA (13:13)
[2017-12-15] MEDS ORDERED: METOCLOPRAMIDE 5 MG/ML 2 ML VIAL IVP STA (13:13)
[2017-12-15] MEDS ORDERED: SODIUM CHLORIDE 0.9% 1,000 ML IV STA (13:13)
[2017-12-15] MEDS ORDERED: SODIUM CHLORIDE 0.9% 500 ML IV STA (13:13)
[2017-12-15 13:48] LABS: Anisocytosis Slight; Basophils % (A) 0 %; Eosinophils # (A) 0.2 k/uL (0-0.7); Eosinophils % (A) 3 %; HCT 43.7 % (34.0-46.0); HGB 15.6 gm/dL (11.4-16.0); Lymphocytes # (A) 1.9 k/uL (1.0-4.8); Lymphocytes % (A) 26 %; MCH 28.3 pg (25.0-35.0); MCHC 35.6 g/dL (31.0-37.0); MCV 79.4 fL (80.0-100.0); Mean Platelet Volume 9.2; Microcytosis Slight; Monocytes # (A) 0.5 k/uL (0-1.0); Monocytes % (A) 6 %; Neutrophils # (A) 4.4 k/uL (1.3-7.7); Neutrophils % (A) 62 %; Platelet Count 161 k/uL (150-450); RBC 5.51 m/uL (3.80-5.40); RDW 16.4 % (11.5-15.5); WBC 7.1 k/uL (3.8-10.6)
--- NOTE | 2017-12-15 13:55 | CT ---
EXAMINATION TYPE: CT brain wo con DATE OF EXAM: 12/15/2017 COMPARISON: NONE HISTORY: dizziness, syncope CT DLP: [address] of the brain was performed. The ventricles, basal cisterns and sulci overlying the cerebral convexities demonstrate mild enlargem ent. There is no evidence for intracranial hemorrhage or sulcal effacement. There is decreased attenuation about the periventricular white matter and deep white matter of both c erebral hemispheres, compatible with chronic small vessel ischemia. Differential diagnosis does inclu de demyelination. No mass effects are seen.No midline shift. Osseous calvarium is intact. If symptoms persist consider MRI. IMPRESSION: 1. Age related atrophic and chronic small vessel ischemic change without acute intracranial process s een at this time.
[2017-12-15 13:58] LABS: INR 1.9 (<1.2)
--- NOTE | 2017-12-15 14:01 | XR ---
EXAMINATION TYPE: XR chest 2V DATE OF EXAM: 12/15/2017 COMPARISON: NONE INDICATION: Dizziness headache COPD TECHNIQUE: Frontal and lateral views of the chest are obtained. FINDINGS: The heart size is normal. The pulmonary vasculature is normal. The lungs are clear. Electronic device overlies left chest. IMPRESSION: 1. No acute pulmonary process.
[2017-12-15 14:07] LABS: ALT 36 U/L (9-52); AST 22 U/L (14-36); Albumin 4.6 g/dL (3.5-5.0); Alkaline Phosphatase 117 U/L (38-126); Anion Gap 13 mmol/L; Blood Urea Nitrogen 12 mg/dL (7-17); Calcium 9.8 mg/dL (8.4-10.2); Carbon Dioxide 26 mmol/L (22-30); Chloride 100 mmol/L (98-107); Glucose 84 mg/dL (74-99); Potassium 4.7 mmol/L (3.5-5.1); Sodium 139 mmol/L (137-145); Total Bilirubin 0.7 mg/dL (0.2-1.3); Total Protein 7.3 g/dL (6.3-8.2)
--- NOTE | 2017-12-15 15:01 | ED ---
Dizziness HPI - General Chief Complaint: Syncope Stated Complaint: SYNCOPE Time Seen by Provider: 12/15/17 12:49 Source: patient, RN notes reviewed Mode of arrival: wheelchair Limitations: no limitations - History of Present Illness Initial Comments: This a 52-year-old female presents emergency Department chief complaint of dizziness, headache. Patient states she suffers of migraines and states that she has a terrible headache at this time. Patient also complains of severe dizziness. She states that she's even dizzy and she is just sitting up. She states is much worse and exacerbated by movement. She has had a nausea and vomiting associated with. He states that she was vomiting earlier states that she fell she passed out. She has no current chest pain, shortness breath. She has no abdominal pain other than when she vomits. Patient states she has no focal weakness denies any extremity weakness denies any extremity paresthesias. - Related Data Home Medications Medication Instructions Recorded Confirmed Spironolactone [Aldactone] 25 mg PO DAILY 06/20/14 12/15/17 Warfarin Sodium [Coumadin] 5 mg PO SUMOTUTHFRSA 12/06/14 12/15/17 Atorvastatin Calcium [Lipitor] 10 mg PO HS 04/06/16 12/15/17 ALPRAZolam [Xanax] 0.25 mg PO TID PRN 07/17/17 12/15/17 Acetaminophen Tab [Tylenol] 1,000 mg PO Q6H PRN 07/17/17 12/15/17 Albuterol Nebulized [Ventolin 2.5 mg INHALATION RT-Q6H PRN 07/17/17 12/15/17 Nebulized] Albuterol Sulfate [Proventil Hfa] 1 - 2 puff INHALATION RT-Q6H PRN 07/17/17 Amiodarone [Cordarone] 100 mg PO DAILY 07/17/17 12/15/17 Lisinopril [Zestril] 2.5 mg PO DAILY 07/17/17 12/15/17 [place]-3 Fatty Acids/Fish Oil [Fish 1 cap PO DAILY 07/17/17 12/15/17 Oil 1,000 mg Softgel] Warfarin [Coumadin] 7.5 mg PO WE 07/17/17 12/15/17 traZODone HCL 50 mg PO HS PRN 07/17/17 12/15/17 Previous Rx's Medication Instructions Recorded Carvedilol [Coreg] 6.25 mg PO BID-W/MEALS #60 tab 11/30/17 Meclizine [Antivert] 25 mg PO TID PRN #15 tab 12/15/17 Ondansetron Odt [Zofran Odt] 4 mg PO Q8HR PRN #10 tab 12/15/17 Allergies Allergy/AdvReac Type Severity Reaction Status Date / Time No Known Allergies Allergy Verified 12/15/17 12:59 Review of Systems ROS Statement: Those systems with pertinent positive or pertinent negative responses have been documented in the HPI. ROS Other: All systems not noted in ROS Statement are negative. Past Medical History Past Medical History: COPD, Hyperlipidemia, Hypertension, Myocardial Infarction ([place]) Additional Past Medical History / Comment(s): cardiomyopathy, DVT ( 4 yrs ago), Last Myocardial Infarction Date:: 4 yrs agp History of Any Multi-Drug Resistant Organisms: None Reported Past Surgical History: AICD, Cholecystectomy Additional Past Surgical History / Comment(s): defibrillator Past Anesthesia/Blood Transfusion Reactions: No Reported Reaction Type of Cardiac Device: AICD Device Placement Date:: 2012 Past Psychological History: Anxiety Smoking Status: Current every day smoker Past Alcohol Use History: None Reported Past Drug Use History: None Reported - Past Family History Mother Family Medical History: Diabetes Mellitus, Hypertension Father Family Medical History: No Reported History General Exam General appearance: alert, in no apparent distress Head exam: Present: atraumatic, normocephalic, normal inspection Eye exam: Present: normal appearance, PERRL, EOMI. Absent: scleral icterus, conjunctival injection, periorbital swelling ENT exam: Present: normal exam, normal oropharynx, mucous membranes moist Neck exam: Present: normal inspection, full ROM. Absent: tenderness, meningismus, lymphadenopathy Respiratory exam: Present: normal lung sounds bilaterally. Absent: respiratory distress, wheezes, rales, rhonchi, stridor Cardiovascular Exam: Present: regular rate, normal rhythm, normal heart sounds. Absent: systolic murmur, diastolic murmur, rubs, gallop, clicks GI/Abdominal exam: Present: soft, normal bowel sounds. Absent: distended, tenderness, guarding, rebound, rigid Neurological exam: Present: alert, oriented X3, CN II-XII intact, reflexes normal, other (Finger to nose intact bilaterally). Absent: motor sensory deficit Skin exam: Present: warm, dry, intact, normal color. Absent: rash Course Vital Signs 12/15/17 12/15/17 12/15/17 12:06 13:32 14:56 Temperature 97.2 F L Pulse Rate 78 80 74 Respiratory 18 18 18 Rate Blood Pressure 125/68 120/70 108/82 O2 Sat by Pulse 95 93 L 98 Oximetry - Reevaluation(s) Reevaluation #1: 12/15/17 15:08 Patient feels improved after IV medications she still requests something additional for headache. Patient was updated on lab results. EKG Findings - EKG Comments: EKG Findings:: EKG performed at 12 17 electronic ventricular pacemaker with a rate of 78 [place] 96 QRS 80 Medical Decision Making - Medical Decision Making 52-year-old female presents from chief complaint of dizziness, headache and nausea vomiting. She has CT, lab work and feels much improved. She had no current chest pain or shortness of breath. Patient will be discharged with Antivert and return parameters were discussed. I discussed admitting the patient regarding her syncopal episodes are she states that she feels better and would like to be discharged. - Lab Data Result diagrams: 12/15/17 13:00 12/15/17 13:00 Lab Results 12/15/17 12/15/17 12/15/17 Range/Units 12:10 13:00 13:00 WBC 7.1 (3.8-10.6) k/uL RBC 5.51 H (3.80-5.40) m/uL Hgb 15.6 (11.4-16.0) gm/dL Hct 43.7 (34.0-46.0) % MCV 79.4 L (80.0-100.0) fL MCH 28.3 (25.0-35.0) pg MCHC 35.6 (31.0-37.0) g/dL RDW 16.4 H (11.5-15.5) % Plt Count 161 (150-450) k/uL Neutrophils % 62 % Lymphocytes % 26 % Monocytes % 6 % Eosinophils % 3 % Basophils % 0 % Neutrophils # 4.4 (1.3-7.7) k/uL Lymphocytes # 1.9 (1.0-4.8) k/uL Monocytes # 0.5 (0-1.0) k/uL Eosinophils # 0.2 (0-0.7) k/uL Basophils # 0.0 (0-0.2) k/uL Anisocytosis Slight Microcytosis Slight PT (9.0-12.0) sec INR (<1.2) Sodium 139 (137-145) mmol/L Potassium 4.7 (3.5-5.1) mmol/L Chloride 100 (98-107) mmol/L Carbon Dioxide 26 (22-30) mmol/L Anion Gap 13 mmol/L BUN 12 (7-17) mg/dL Creatinine 0.84 (0.52-1.04) mg/dL Est GFR (CKD-EPI)AfAm >90 (>60 ml/min/1.73 sqM) Est GFR (CKD-EPI)NonAf 80 (>60 ml/min/1.73 sqM) Glucose 84 (74-99) mg/dL POC Glucose (mg/dL) 106 H (75-99) mg/dL POC Glu Presentation Specialist ID Haily, Alie Calcium 9.8 (8.4-10.2) mg/dL Total Bilirubin 0.7 (0.2-1.3) mg/dL AST 22 (14-36) U/L ALT 36 (9-52) U/L Alkaline Phosphatase 117 (38-126) U/L Troponin I (0.000-0.034) ng/mL Total Protein 7.3 (6.3-8.2) g/dL Albumin 4.6 (3.5-5.0) g/dL 12/15/17 12/15/17 Range/Units 13:00 13:00 WBC (3.8-10.6) k/uL RBC (3.80-5.40) m/uL Hgb (11.4-16.0) gm/dL Hct (34.0-46.0) % MCV (80.0-100.0) fL MCH (25.0-35.0) pg MCHC (31.0-37.0) g/dL RDW (11.5-15.5) % Plt Count (150-450) k/uL Neutrophils % % Lymphocytes % % Monocytes % % Eosinophils % % Basophils % % Neutrophils # (1.3-7.7) k/uL Lymphocytes # (1.0-4.8) k/uL Monocytes # (0-1.0) k/uL Eosinophils # (0-0.7) k/uL Basophils # (0-0.2) k/uL Anisocytosis Microcytosis PT 17.0 H (9.0-12.0) sec INR 1.9 H (<1.2) Sodium (137-145) mmol/L Potassium (3.5-5.1) mmol/L Chloride (98-107) mmol/L Carbon Dioxide (22-30) mmol/L Anion Gap mmol/L BUN (7-17) mg/dL Creatinine (0.52-1.04) mg/dL Est GFR (CKD-EPI)AfAm (>60 ml/min/1.73 sqM) Est GFR (CKD-EPI)NonAf (>60 ml/min/1.73 sqM) Glucose (74-99) mg/dL POC Glucose (mg/dL) (75-99) mg/dL POC Glu Presentation Specialist ID Calcium (8.4-10.2) mg/dL Total Bilirubin (0.2-1.3) mg/dL AST (14-36) U/L ALT (9-52) U/L Alkaline Phosphatase (38-126) U/L Troponin I <0.012 (0.000-0.034) ng/mL Total Protein (6.3-8.2) g/dL Albumin (3.5-5.0) g/dL Disposition Clinical Impression: Nausea & vomiting, Headache, Dizziness Disposition: HOME SELF-CARE Condition: Stable Instructions: Dizziness (ED), Acute Nausea and Vomiting (ED) Additional Instructions: Please return to the Emergency Department if symptoms worsen or any other concerns. Prescriptions: Meclizine [Antivert] 25 mg PO TID PRN #15 tab PRN Reason: Vertigo Ondansetron Odt [Zofran Odt] 4 mg PO Q8HR PRN #10 tab PRN Reason: Nausea Is patient prescribed a controlled substance at d/c from ED?: No Referrals: Daniel Mosqueda MD [Primary Care Provider] - 1-2 days Time of Disposition: 15:14
[2017-12-15] MEDS ORDERED: diphenhydrAMINE 50 MG/ML 1 ML VIAL IVP STA (15:04)
[2017-12-15] MEDS ORDERED: KETOROLAC 30 MG/ML 1 ML VIAL IVP STA (15:04)
[2017-12-15] MEDS ORDERED: ONDANSETRON 4 MG/2 ML VIAL IVP STA (15:04)
[2017-12-15 15:35] VITALS: PULSE 72
[2017-12-15 15:49] VITALS: BP 101/64; TEMP 98
== END 2017-12-15 15:49 | disposition home or self-care (01) ==
LOC: EC 11:49
DX: R11.2 Nausea with vomiting, unspecified (principal); R51 Headache; R42 Dizziness and giddiness; R55 Syncope and collapse; J44.9 Chronic obstructive pulmonary disease, unspecified; E78.5 Hyperlipidemia, unspecified; I10 Essential (primary) hypertension; F41.9 Anxiety disorder, unspecified; I25.2 Old myocardial infarction; F17.200 Nicotine dependence, unspecified, uncomplicated; Z79.01 Long term (current) use of anticoagulants; Z79.899 Other long term (current) drug therapy; Z86.718 Personal history of other venous thrombosis and embolism; Z95.810 Presence of automatic (implantable) cardiac defibrillator
CPT/HCPCS: 36415; 93005; 80053; 84484; 85025; 85610; 71046; 70450; 99285; 96374; 96375 ×3; 96361 ×2; J1200; J2765; J2405; J1885

== ENCOUNTER 2018-02-19 12:19 | Observation (INO) | payer MEDICARE ==
[2018-02-19] MEDS ORDERED: SODIUM CHLORIDE 0.9% 500 ML IV STA (12:27)
[2018-02-19 12:53] LABS: Basophils % (A) 0 %; Eosinophils # (A) 0.2 k/uL (0-0.7); Eosinophils % (A) 3 %; HCT 43.5 % (34.0-46.0); Lymphocytes # (A) 1.4 k/uL (1.0-4.8); Lymphocytes % (A) 23 %; MCH 28.5 pg (25.0-35.0); MCHC 34.6 g/dL (31.0-37.0); MCV 82.4 fL (80.0-100.0); Mean Platelet Volume 8.1; Monocytes # (A) 0.3 k/uL (0-1.0); Monocytes % (A) 5 %; Neutrophils # (A) 4.2 k/uL (1.3-7.7); Neutrophils % (A) 67 %; Platelet Count 164 k/uL (150-450); RBC 5.28 m/uL (3.80-5.40); RDW 15.2 % (11.5-15.5); WBC 6.2 k/uL (3.8-10.6)
[2018-02-19] MEDS ORDERED: LORazepam 2 MG/ML INJ IV STA ×2 (12:58→14:49)
--- NOTE | 2018-02-19 13:00 | ED ---
General Adult HPI - General Chief complaint: Arrhythmia/Palpitations Stated complaint: Irregular heartbeat w/chest pains Time Seen by Provider: 02/19/18 12:27 Source: patient, RN notes reviewed, old records reviewed Mode of arrival: ambulatory Limitations: no limitations - History of Present Illness Initial comments: 52-year-old female history of cardiomyopathy status post pacemaker defibrillator pacemaker. Presenting with palpitations and chest pressure. Patient's symptoms began several hours prior to arrival. She does have history of anxiety disorder felt that this may be related to panic attack. She denies any nausea or vomiting. Denies significant dyspnea. She states that she had mild to moderate chest fullness and pressure across her upper chest. No radiating symptoms. No lower extremity pain or swelling. Patient has remote history of cardiac arrest. - Related Data Home Medications Medication Instructions Recorded Confirmed Spironolactone [Aldactone] 25 mg PO DAILY 06/20/14 02/19/18 Warfarin Sodium [Coumadin] 7.5 mg PO SUMOTUTHFRSA 12/06/14 02/19/18 Atorvastatin Calcium [Lipitor] 10 mg PO HS 04/06/16 02/19/18 ALPRAZolam [Xanax] 0.25 mg PO TID PRN 07/17/17 02/19/18 Acetaminophen Tab [Tylenol] 1,000 mg PO Q6H PRN 07/17/17 02/19/18 Albuterol Nebulized [Ventolin 2.5 mg INHALATION RT-QID PRN 07/17/17 02/19/18 Nebulized] Albuterol Sulfate [Proventil Hfa] 1 - 2 puff INHALATION RT-Q6H PRN 07/17/1711/03 Amiodarone [Cordarone] 100 mg PO DAILY 07/17/17 02/19/18 Lisinopril [Zestril] 2.5 mg PO DAILY 07/17/17 02/19/18 [place]-3 Fatty Acids/Fish Oil [Fish 1 cap PO DAILY 07/17/17 02/19/18 Oil 1,000 mg Softgel] Warfarin [Coumadin] 5 mg PO WE 07/17/17 02/19/18 traZODone HCL 50 mg PO HS PRN 07/17/17 02/19/18 Previous Rx's Medication Instructions Recorded Carvedilol [Coreg] 6.25 mg PO BID-W/MEALS #60 tab 11/30/17 Meclizine [Antivert] 25 mg PO TID PRN #15 tab 12/15/17 Ondansetron Odt [Zofran Odt] 4 mg PO Q8HR PRN #10 tab 12/15/17 Allergies Allergy/AdvReac Type Severity Reaction Status Date / Time No Known Allergies Allergy Verified 02/19/18 13:52 Review of Systems ROS Statement: Those systems with pertinent positive or pertinent negative responses have been documented in the HPI. ROS Other: All systems not noted in ROS Statement are negative. Past Medical History Past Medical History: COPD, Hyperlipidemia, Hypertension, Myocardial Infarction ([place]) Additional Past Medical History / Comment(s): cardiomyopathy, DVT ( 4 yrs ago), Last Myocardial Infarction Date:: 4 yrs agp History of Any Multi-Drug Resistant Organisms: None Reported Past Surgical History: AICD, Cholecystectomy Additional Past Surgical History / Comment(s): defibrillator Past Anesthesia/Blood Transfusion Reactions: No Reported Reaction Type of Cardiac Device: AICD Device Placement Date:: 2012 Past Psychological History: Anxiety Smoking Status: Current every day smoker Past Alcohol Use History: None Reported Past Drug Use History: None Reported - Past Family History Mother Family Medical History: Diabetes Mellitus, Hypertension Father Family Medical History: No Reported History General Exam Limitations: no limitations General appearance: alert, anxious Head exam: Present: atraumatic, normocephalic Eye exam: Present: normal appearance, PERRL, EOMI ENT exam: Present: normal exam Neck exam: Present: normal inspection. Absent: tenderness, meningismus Respiratory exam: Present: normal lung sounds bilaterally. Absent: respiratory distress, wheezes Cardiovascular Exam: Present: normal rhythm, tachycardia GI/Abdominal exam: Present: soft. Absent: distended, tenderness Extremities exam: Present: normal inspection, normal capillary refill. Absent: pedal edema, calf tenderness Neurological exam: Present: alert, oriented X3, CN II-XII intact. Absent: motor sensory deficit Psychiatric exam: Present: normal affect, normal mood Skin exam: Present: warm, dry, intact. Absent: cyanosis, diaphoretic Course Vital Signs 02/19/18 02/19/18 02/19/18 12:21 12:56 13:25 Temperature 98.2 F Pulse Rate 108 H 108 H 94 Respiratory 18 18 20 Rate Blood Pressure 128/89 133/89 119/78 O2 Sat by Pulse 98 98 98 Oximetry 02/19/18 14:25 Temperature Pulse Rate 96 Respiratory 22 Rate Blood Pressure 159/73 O2 Sat by Pulse 98 Oximetry EKG Findings - EKG Comments: EKG Findings:: EKG: Ventricular paced rhythm, rate of 99, QRS duration 160, QTC is 567 Medical Decision Making - Medical Decision Making 52-year-old female history of cardiomyopathy, previous cardiac arrest and pacemaker defibrillator placement presenting with chest discomfort and palpitations. EKG reveals paced rhythm, chest x-ray is negative for cardiopulmonary disease. CBC, CMP are unremarkable. Troponin is negative. INR is 1, patient is on Coumadin although she has missed several doses. She is started on heparin in emergency department. She will be admitted for stroke cardiac enzymes and cardiology consultation. - Lab Data Result diagrams: 02/19/18 12:38 02/19/18 12:38 Lab Results 02/19/18 02/19/18 02/19/18 Range/Units 12:38 12:38 12:38 WBC 6.2 (3.8-10.6) k/uL RBC 5.28 (3.80-5.40) m/uL Hgb 15.0 (11.4-16.0) gm/dL Hct 43.5 (34.0-46.0) % MCV 82.4 (80.0-100.0) fL MCH 28.5 (25.0-35.0) pg MCHC 34.6 (31.0-37.0) g/dL RDW 15.2 (11.5-15.5) % Plt Count 164 (150-450) k/uL Neutrophils % 67 % Lymphocytes % 23 % Monocytes % 5 % Eosinophils % 3 % Basophils % 0 % Neutrophils # 4.2 (1.3-7.7) k/uL Lymphocytes # 1.4 (1.0-4.8) k/uL Monocytes # 0.3 (0-1.0) k/uL Eosinophils # 0.2 (0-0.7) k/uL Basophils # 0.0 (0-0.2) k/uL PT (9.0-12.0) sec INR (<1.2) APTT (22.0-30.0) sec Sodium 140 (137-145) mmol/L Potassium 4.5 (3.5-5.1) mmol/L Chloride 108 H (98-107) mmol/L Carbon Dioxide 24 (22-30) mmol/L Anion Gap 8 mmol/L BUN 12 (7-17) mg/dL Creatinine 0.88 (0.52-1.04) mg/dL Est GFR (CKD-EPI)AfAm 87 (>60 ml/min/1.73 sqM) Est GFR (CKD-EPI)NonAf 76 (>60 ml/min/1.73 sqM) Glucose 92 (74-99) mg/dL Calcium 9.4 (8.4-10.2) mg/dL Magnesium 2.0 (1.6-2.3) mg/dL Total Bilirubin 0.6 (0.2-1.3) mg/dL AST 23 (14-36) U/L ALT 33 (9-52) U/L Alkaline Phosphatase 122 (38-126) U/L Total Creatine Kinase 103 (30-135) U/L CK-MB (CK-2) 1.4 (0.0-2.4) ng/mL CK-MB (CK-2) Rel Index 1.4 Troponin I <0.012 (0.000-0.034) ng/mL Total Protein 6.8 (6.3-8.2) g/dL Albumin 4.2 (3.5-5.0) g/dL TSH 4.460 (0.465-4.680) mIU/L 02/19/18 Range/Units 12:38 WBC (3.8-10.6) k/uL RBC (3.80-5.40) m/uL Hgb (11.4-16.0) gm/dL Hct (34.0-46.0) % MCV (80.0-100.0) fL MCH (25.0-35.0) pg MCHC (31.0-37.0) g/dL RDW (11.5-15.5) % Plt Count (150-450) k/uL Neutrophils % % Lymphocytes % % Monocytes % % Eosinophils % % Basophils % % Neutrophils # (1.3-7.7) k/uL Lymphocytes # (1.0-4.8) k/uL Monocytes # (0-1.0) k/uL Eosinophils # (0-0.7) k/uL Basophils # (0-0.2) k/uL PT 10.0 (9.0-12.0) sec INR 1.0 (<1.2) APTT 22.5 (22.0-30.0) sec Sodium (137-145) mmol/L Potassium (3.5-5.1) mmol/L Chloride (98-107) mmol/L Carbon Dioxide (22-30) mmol/L Anion Gap mmol/L BUN (7-17) mg/dL Creatinine (0.52-1.04) mg/dL Est GFR (CKD-EPI)AfAm (>60 ml/min/1.73 sqM) Est GFR (CKD-EPI)NonAf (>60 ml/min/1.73 sqM) Glucose (74-99) mg/dL Calcium (8.4-10.2) mg/dL Magnesium (1.6-2.3) mg/dL Total Bilirubin (0.2-1.3) mg/dL AST (14-36) U/L ALT (9-52) U/L Alkaline Phosphatase (38-126) U/L Total Creatine Kinase (30-135) U/L CK-MB (CK-2) (0.0-2.4) ng/mL CK-MB (CK-2) Rel Index Troponin I (0.000-0.034) ng/mL Total Protein (6.3-8.2) g/dL Albumin (3.5-5.0) g/dL TSH (0.465-4.680) mIU/L Disposition Clinical Impression: NICM (nonischemic cardiomyopathy), Palpitations, Chest pain Disposition: ADMITTED IP TO THIS HOSP Condition: Stable Is patient prescribed a controlled substance at d/c from ED?: No Referrals: Daniel Mosqueda MD [Primary Care Provider] - 1-2 days Decision to Admit Reason: Admit from EC Decision Date: 02/19/18 Decision Time: 15:18
[2018-02-19 13:05] LABS: Albumin 4.2 g/dL (3.5-5.0); Calcium 9.4 mg/dL (8.4-10.2); Potassium 4.5 mmol/L (3.5-5.1); Total Bilirubin 0.6 mg/dL (0.2-1.3); Total Protein 6.8 g/dL (6.3-8.2)
[2018-02-19 13:09] LABS: Partial Thromboplastin Time 22.5 sec (22.0-30.0)
[2018-02-19 13:27] LABS: Creatine Kinase 103 U/L (30-135)
[2018-02-19 13:40] LABS: Creatine Kinase MB 1.4 ng/mL (0.0-2.4); Troponin I <0.012 ng/mL (0.000-0.034)
--- NOTE | 2018-02-19 14:09 | XR ---
EXAMINATION TYPE: XR chest 2V DATE OF EXAM: 02/19/2018 COMPARISON: 12/15/2017 INDICATION: Dysrhythmia TECHNIQUE: Frontal and lateral views of the chest are obtained. FINDINGS: The heart size is normal. The pulmonary vasculature is normal. The lungs are clear. Pacemaker overlies left chest. IMPRESSION: 1. No acute pulmonary process.
[2018-02-19] MEDS ORDERED: HEPARIN SODIUM,PORCINE 5,000 UNIT/ML 1 ML VIAL IV ONE (14:49)
[2018-02-19] MEDS ORDERED: HEPARIN SODIUM,PORCINE 5,000 UNIT/ML 1 ML VIAL IV PRN (14:49)
[2018-02-19] MEDS ORDERED: HEPARIN SOD,PORK IN 0.45% NACL 25,000 UNIT in 0.45% NACL 1 500ML.BAG IV SCH (15:00)
[2018-02-19] MEDS ORDERED: ACETAMINOPHEN TAB 325 MG TAB PO PRN (15:13)
[2018-02-19] MEDS ORDERED: NALOXONE 0.4 MG/ML 1 ML VIAL IV PRN (15:13)
[2018-02-19 16:44] VITALS: BMI 30.4
[2018-02-19] MEDS: CARVEDILOL 6.25 MG TAB PO SCH (18:09)
[2018-02-19] MEDS ORDERED: traZODone HCL 50 MG TAB PO PRN (18:31)
[2018-02-19] MEDS: BUTALB/APAP/CAFF 50-325-40MG TAB PO PRN (18:39)
[2018-02-19 18:47] LABS: Creatine Kinase 102 U/L (30-135)
[2018-02-19 18:58] LABS: Creatine Kinase MB 1.5 ng/mL (0.0-2.4); Troponin I <0.012 ng/mL (0.000-0.034)
[2018-02-19] MEDS ORDERED: ATORVASTATIN 10 MG TAB PO SCH (21:00)
[2018-02-19] MEDS: LORazepam 2 MG/ML INJ IV PRN (22:29)
[2018-02-20 01:05] LABS: Creatine Kinase 101 U/L (30-135)
[2018-02-20 01:17] LABS: Creatine Kinase MB 1.7 ng/mL (0.0-2.4); Troponin I <0.012 ng/mL (0.000-0.034)
[2018-02-20] MEDS: LORazepam 2 MG/ML INJ IV PRN ×2 (04:12→10:16)
[2018-02-20 07:19] LABS: Basophils % (A) 0 %; Eosinophils # (A) 0.2 k/uL (0-0.7); Eosinophils % (A) 3 %; HCT 39.3 % (34.0-46.0); HGB 13.7 gm/dL (11.4-16.0); Lymphocytes # (A) 1.7 k/uL (1.0-4.8); Lymphocytes % (A) 33 %; MCH 29.2 pg (25.0-35.0); MCHC 34.9 g/dL (31.0-37.0); MCV 83.6 fL (80.0-100.0); Mean Platelet Volume 8.7; Monocytes # (A) 0.3 k/uL (0-1.0); Monocytes % (A) 5 %; Neutrophils # (A) 2.9 k/uL (1.3-7.7); Neutrophils % (A) 57 %; Platelet Count 125 k/uL (150-450); RDW 15.2 % (11.5-15.5); WBC 5.2 k/uL (3.8-10.6)
[2018-02-20 07:24] VITALS: RESP 16
[2018-02-20] MEDS: LISINOPRIL 2.5 MG TAB PO SCH ×2 (09:11→10:20)
[2018-02-20] MEDS: SPIRONOLACTONE 25 MG TAB PO SCH ×2 (09:11→10:14)
[2018-02-20] MEDS: CARVEDILOL 6.25 MG TAB PO SCH ×3 (09:11→16:59)
[2018-02-20] MEDS: AMIODARONE 100 MG TAB PO SCH ×2 (09:11→10:14)
--- NOTE | 2018-02-20 09:32 | P.CRDCN ---
History of Present Illness Consult date: 02/20/18 Requesting physician: Daniel Mosqueda Reason for Consult (text): This is a 52-year-old female with known history of nonischemic cardio myopathy and prior AICD implantation, history of ventricular fibrillation, possible thrombus noted in the apex and 2012, on long-term anticoagulation with Coumadin, hyperlipidemia, hypertension, COPD, chronic nicotine dependence. She underwent a cardiac catheterization in 2011 which revealed normal coronary arteries. Patient follows with Dr. Reece in the office. Patient presents to the hospital on this occasion with symptoms of palpitations. She states she felt a fluttering sensation in her chest, it dissipated and again returned, she then went into what she describes as a panic attack, and came to the emergency room for further evaluation. She was just recently in the hospital in November of this year, seen in consultation by cardiology at that time, she was admitted with atypical chest pain and advised to follow-up with Dr. Reece. She also had subsequent admission to the emergency room with symptoms of dizziness. States she has not seen Dr. Reece in approximately 6 months. Chest x-ray on admission did not reveal any acute process. EKG on admission revealed a ventricular paced rhythm. Underlying normal sinus rhythm. Blood pressure 114/ 70 with a heart rate in the 90s, 93% on room air. White blood cell count 5.2, hemoglobin 13.7, platelet count 125. Sodium 140, potassium 4.5, BUN 12, creatinine 0.8. Opponents are negative 3. TSH is normal. Echocardiogram with Doppler study was performed in November at that time she was admitted which revealed an ejection fraction of 20-25%. Past Medical History Past Medical History: COPD, Hyperlipidemia, Hypertension, Myocardial Infarction ([place]) Additional Past Medical History / Comment(s): cardiomyopathy, DVT ( 4 yrs ago), Last Myocardial Infarction Date:: 4 yrs ago History of Any Multi-Drug Resistant Organisms: None Reported Past Surgical History: AICD, Cholecystectomy Additional Past Surgical History / Comment(s): defibrillator Past Anesthesia/Blood Transfusion Reactions: No Reported Reaction Type of Cardiac Device: AICD Device Placement Date:: 2012 Past Psychological History: Anxiety Smoking Status: Current every day smoker Past Alcohol Use History: None Reported Past Drug Use History: None Reported - Past Family History Mother Family Medical History: Diabetes Mellitus, Hypertension Father Family Medical History: No Reported History Medications and Allergies Home Medications Medication Instructions Recorded Confirmed Type Spironolactone [Aldactone] 25 mg PO DAILY 06/20/14 02/19/18 History Warfarin Sodium [[facility]mad[facility]] [facility] 12/06/14 02/19/18 History Atorvastatin Calcium [Lipitor] 10 mg PO HS 04/06/16 02/19/18 History ALPRAZolam [Xanax] 0.25 mg PO TID PRN 07/17/17 02/19/18 History Acetaminophen Tab [Tylenol] 1,000 mg PO Q6H PRN 07/17/17 02/19/18 History Albuterol Nebulized [Ventolin 2.5 mg INHALATION RT-QID PRN 07/17/17 02/19/18 History Nebulized] Albuterol Sulfate [Proventil Hfa] 1 - 2 puff INHALATION RT-Q6H PRN 07/17/1711/03 History Amiodarone [Cordarone] 100 mg PO DAILY 07/17/17 02/19/18 History Lisinopril [Zestril] 2.5 mg PO DAILY 07/17/17 02/19/18 History [place]-3 Fatty Acids/Fish Oil [Fish 1 cap PO DAILY 07/17/17 02/19/18 History Oil 1,000 mg Softgel] Warfarin [Coumadin] 5 mg PO WE 07/17/17 02/19/18 History traZODone HCL 50 mg PO HS PRN 07/17/17 02/19/18 History Carvedilol [Coreg] 6.25 mg PO BID-W/MEALS #60 tab 11/30/17 02/19/18 Rx Meclizine [Antivert] 25 mg PO TID PRN #15 tab 12/15/17 02/19/18 Rx Ondansetron Odt [Zofran Odt] 4 mg PO Q8HR PRN #10 tab 12/15/17 02/19/18 Rx Allergies Allergy/AdvReac Type Severity Reaction Status Date / Time No Known Allergies Allergy Verified 02/19/18 13:52 Physical Exam Vitals: Vital Signs Temp Pulse Pulse Resp BP BP Pulse Ox 02/20/18 07:55 93 L 02/20/18 07:30 16 02/20/18 07:21 98.3 F 95 16 113/71 93 L 02/20/18 04:00 98.2 F 82 18 111/78 93 L 02/20/18 00:00 98.2 F 100 18 113/75 02/19/18 20:00 98.3 F 93 18 117/83 93 L 02/19/18 16:15 97.9 F 91 18 128/73 95 02/19/18 16:00 98.1 F 90 14 124/86 98 02/19/18 14:25 96 22 159/73 98 02/19/18 13:25 94 20 119/78 98 02/19/18 12:56 108 H 18 133/89 98 02/19/18 12:21 98.2 F 108 H 18 128/89 98 Intake and Output 02/19/18 02/20/18 02/20/18 22:59 06:59 14:59 Intake Total 263.007 586 Balance 263.007 586 Intake: Intake, IV Titration 263.007 Amount Heparin Sod,Pork in 0.45% 263.007 NaCl 25,000 unit In 0.45 % NaCl 1 500ml.bag @ 11 UNITS/KG/HR 19.95 mls/hr IV .Q24H [facility] Rx#: [id number] Oral 586 Other: Voiding Method Toilet Toilet Toilet # Voids 2 Weight 90.718 kg 90.718 kg PHYSICAL EXAMINATION: GENERAL: 52-year-old female in no acute distress at the time of my examination HEENT: Head is atraumatic, normocephalic. Pupils equal, round. Sclera anicteric. Conjunctiva are clear. Mucous membranes of the mouth are moist. Neck is supple. There is no elevated jugular venous pressure.] bruit is heard. HEART EXAMINATION: Heart S1, S2 normal. No murmur or gallop heard. CHEST EXAMINATION: Lungs are clear to auscultation and precussion. No chest wall tenderness is noted on palpation or with deep breathing. ABDOMEN: Soft, nontender. Bowel sounds are heard. No organomegaly noted. EXTREMITIES: 2+ peripheral pulses with no evidence of peripheral edema and no calf tenderness noted. NEUROLOGIC patient is awake, alert and oriented ?-3. . Results 02/20/18 06:14 02/19/18 12:38 Cardiac Enzymes 02/19/18 02/19/18 02/19/18 Range/Units 12:38 12:38 18:18 AST 23 (14-36) U/L CK-MB (CK-2) 1.4 1.5 (0.0-2.4) ng/mL Troponin I <0.012 <0.012 (0.000-0.034) ng/mL 02/20/18 Range/Units 00:26 AST (14-36) U/L CK-MB (CK-2) 1.7 (0.0-2.4) ng/mL Troponin I <0.012 (0.000-0.034) ng/mL Coagulation 02/19/18 02/19/18 Range/Units 12:38 20:37 PT 10.0 (9.0-12.0) sec APTT 22.5 25.8 (22.0-30.0) sec CBC 02/19/18 02/20/18 Range/Units 12:38 06:14 WBC 6.2 5.2 (3.8-10.6) k/uL RBC 5.28 4.70 (3.80-5.40) m/uL Hgb 15.0 13.7 (11.4-16.0) gm/dL Hct 43.5 39.3 (34.0-46.0) % Plt Count 164 125 L (150-450) k/uL Comprehensive Metabolic Panel 02/19/18 Range/Units 12:38 Sodium 140 (137-145) mmol/L Potassium 4.5 (3.5-5.1) mmol/L Chloride 108 H (98-107) mmol/L Carbon Dioxide 24 (22-30) mmol/L BUN 12 (7-17) mg/dL Creatinine 0.88 (0.52-1.04) mg/dL Glucose 92 (74-99) mg/dL Calcium 9.4 (8.4-10.2) mg/dL AST 23 (14-36) U/L ALT 33 (9-52) U/L Alkaline Phosphatase 122 (38-126) U/L Total Protein 6.8 (6.3-8.2) g/dL Albumin 4.2 (3.5-5.0) g/dL Current Medications Generic Name Dose Route Start Last Admin Trade Name Freq PRN Reason Stop Dose Admin Acetaminophen 650 mg 02/19/18 15:13 Tylenol Tab PO Q6HR PRN Mild Pain or Fever > 100.5 Acetaminophen/Butalbital/Caffeine 1 each 02/19/18 18:32 02/19/18 18:39 Fioricet 50-325-40 PO 1 each Q4HR PRN Administration Headache Amiodarone HCl 100 mg 02/20/18 09:00 02/20/18 09:11 Cordarone PO 100 mg DAILY [facility] Administration Atorvastatin Calcium 10 mg 02/19/18 21:00 02/19/18 22:28 Lipitor PO 10 mg HS [facility] Administration Carvedilol 6.25 mg 02/19/18 17:30 02/20/18 09:11 Coreg PO 6.25 mg BID-W/MEALS [facility] Administration Heparin Sodium (Porcine) 0 unit 02/19/18 14:49 02/20/18 04:12 Heparin IV 4,000 unit PER PROTOCOL PRN Administration Low PTT Protocol Heparin Sodium/Sodium Chloride 500 mls @ 19.95 mls/hr 02/19/18 15:00 04:17 25,000 unit/ Sodium Chloride IV 13.94 units/kg/hr .Q24H [facility] 25.3 mls/hr Titration Protocol 11 UNITS/KG/HR Lisinopril 2.5 mg 02/20/18 09:00 02/20/18 09:11 Zestril PO 2.5 mg DAILY [facility] Administration Lorazepam 0.5 mg 02/19/18 15:13 02/20/18 04:12 Ativan IV 0.5 mg Q6HR PRN Administration Anxiety Naloxone HCl 0.2 mg 02/19/18 15:13 Narcan IV Q2M PRN Opioid Reversal Spironolactone 25 mg 02/20/18 09:00 02/20/18 09:11 Aldactone PO 25 mg DAILY [facility] Administration Trazodone HCl 50 mg 02/19/18 18:31 02/19/18 22:28 Desyrel PO 50 mg HS PRN Administration Insomnia Intake and Output 02/19/18 02/20/18 02/20/18 22:59 06:59 14:59 Intake Total 263.007 586 Balance 263.007 586 Intake: Intake, IV Titration 263.007 Amount Heparin Sod,Pork in 0.45% 263.007 NaCl 25,000 unit In 0.45 % NaCl 1 500ml.bag @ 11 UNITS/KG/HR 19.95 mls/hr IV .Q24H [facility] Rx#: [id number] Oral 586 Other: Voiding Method Toilet Toilet Toilet # Voids 2 Weight 90.718 kg 90.718 kg 02/20/18 06:14 02/19/18 12:38 EKG Interpretations (text) EKG shows a ventricular paced rhythm Assessment and Plan Plan: Assessment and plan #1 symptoms of heart fluttering and palpitation. Atypical for acute coronary syndrome. Troponins negative 3. #2 anxiety #3 history of nonischemic cardiomyopathy with documented ejection fraction of 20 -25%. Status post AIcd Most recent echo was performed in November of this year #4 hyperlipidemia #5 history of ventricular fibrillation, on amiodarone #6 hypertension #7 hyperlipidemia #8 questionable thrombus on prior echo for which the patient is on Coumadin. INR is subtherapeutic, patient states she hasn't taken her Coumadin in over a week because she was having symptoms of nausea and vomiting at home. #9 obesity Plan We will discontinue the patient's IV heparin, discussed with Dr. Reece tomorrow regarding whether patient needs to continue on that or not, she did have an echo in November of this year which did not reveal evidence of thrombus. Recommendation is also to consider the initiation of Entresto as an outpatient. She may be able to be discharged from cardiology's perspective and we'll make her follow-up appointment with Dr. Reece in the office. DNP note has been reviewed, I agree with a documented findings and plan of care. Patient was seen and examined.
--- NOTE | 2018-02-20 09:43 | P.PN ---
Progress Note - Text Progress Note Date: 02/20/18 Is is an addendum to the cardiology consultation dictated. Patient will be discharged home on 7 mg of Coumadin, we will check PT/INR in one week and have her follow-up with Dr. Reece within 2 weeks. DNP note has been reviewed, I agree with a documented findings and plan of care. Patient was seen and examined.
[2018-02-20] MEDS: BUTALB/APAP/CAFF 50-325-40MG TAB PO PRN ×2 (10:52→17:04)
[2018-02-20 15:35] VITALS: BP 94/63; PULSE 71; TEMP 98.2
[2018-02-20] MEDS ORDERED: WARFARIN 7.5 MG TAB PO SCH (18:00)
--- NOTE | 2018-02-20 20:58 | HP ---
HISTORY AND PHYSICAL CHIEF COMPLAINT: Chest pain. HISTORY OF PRESENT ILLNESS: This is another admission for this 52-year-old white female has cardiomyopathy. She is a very unreliable patient. She is supposed to be on Coumadin, but her INR was 1 when she came to emergency room. She came in because of chest pain and palpitations. I happen to know that she is under a great deal of stress. She lost her mother and a son in the last year and is undergoing conflict with family members. In the emergency room, enzymes were normal and she was admitted for observation. REVIEW OF SYSTEMS: She has had no syncope, neurologic problems, cough, hemoptysis, orthopnea, PND, abdominal pain, vomiting and diarrhea, melena, urinary complaints, etc. Past medical history, family history, personal and social histories are all otherwise unremarkable and it is not clear if she is taking her medications or not. She does have a defibrillator. She had not been smoking, but she has restarted. PHYSICAL EXAM: Blood pressure is 94/63, pulse 71, respirations 16 and she is afebrile. In general, she appeared to be slightly overweight in no acute distress. Face is flushed. Head, ears, eyes, nose, mouth, and throat were otherwise normal. Chest is clear. Cardiac exam demonstrated atrial fib, which sounded like atrial fibrillation. The abdomen is soft, nontender. EXTREMITIES: Normal. Neurological is intact. IMPRESSION: 1. Chest pain. 2. Cardiomyopathy. 3. Depression. PLAN: 1. Bed rest. 2. IV fluids. 3. Serial EKGs and enzymes. 4. Cardiology consult. MMODL / IJN: [id number] /
[2018-02-21] MEDS ORDERED: LISINOPRIL 2.5 MG TAB PO SCH (09:00)
--- NOTE | 2018-02-21 09:11 | DS ---
DISCHARGE SUMMARY CHIEF COMPLAINT: Chest pain and palpitations. HISTORY OF PRESENT ILLNESS AND PHYSICAL EXAMINATION: Details of this lady's history and physical can be found in the initial workup. LABORATORY STUDIES: While she was in the hospital she had laboratory studies, details which can be found in the laboratory section of chart. COURSE IN HOSPITAL: After admission he was placed on bedrest, started on intravenous fluids and she had serial EKGs and enzymes and they were normal. She was seen by Cardiology and it was felt that she could be discharged home. She will be discharged on usual medications and she will be seen in the office several days. FINAL DIAGNOSES: 1. Chest pain. 2. Cardiomyopathy. 3. Depression. OPERATIONS: None. CONSULTATION: Cardiology She is improved. MMODL / IJN: [id number] /
== END 2018-02-20 19:10 | disposition home or self-care (01) ==
LOC: EC 12:19 → 3SUR 15:25 → 3OBS 02-20 01:08
PROVIDERS: ADMIT Family Medicine; ATTEND Family Medicine
DX: R07.89 Other chest pain (principal); I42.9 Cardiomyopathy, unspecified; F32.9 Major depressive disorder, single episode, unspecified; R00.2 Palpitations; F41.9 Anxiety disorder, unspecified; I10 Essential (primary) hypertension; E78.5 Hyperlipidemia, unspecified; F17.200 Nicotine dependence, unspecified, uncomplicated; I49.8 Other specified cardiac arrhythmias; I49.9 Cardiac arrhythmia, unspecified; I48.91 Unspecified atrial fibrillation; E66.9 Obesity, unspecified; Z68.30 Body mass index [BMI] 30.0-30.9, adult; Z86.74 Personal history of sudden cardiac arrest; T45.516A Underdosing of anticoagulants, initial encounter; Z79.01 Long term (current) use of anticoagulants; Z79.899 Other long term (current) drug therapy; J44.9 Chronic obstructive pulmonary disease, unspecified; I25.2 Old myocardial infarction; Z86.718 Personal history of other venous thrombosis and embolism; Z86.79 Personal history of other diseases of the circulatory system; Z95.810 Presence of automatic (implantable) cardiac defibrillator; Z90.49 Acquired absence of other specified parts of digestive tract; Z83.3 Family history of diabetes mellitus; Z82.49 Family history of ischemic heart disease and other diseases of the circulatory system
CPT/HCPCS: 99285 ×2; 96361 ×2; 96375 ×2; 96376 ×5; 96365 ×2; 96366 ×4; 36415; 94760; 93005; 80053; 82550 ×2; 82553 ×2; 83735; 84443; 84484 ×2; 85025 ×2; 85610; 85730; 71046; G0378 ×2; J2060 ×2; J1644 ×3

== ENCOUNTER 2018-04-23 12:14 | Inpatient (IN) | payer MEDICARE ==
[2018-04-23] MEDS ORDERED: ASPIRIN 81 MG PO STA (12:36)
[2018-04-23] MEDS ORDERED: NITROGLYCERIN OINT 1 INCH/GM PACKET TOPICAL STA (12:36)
[2018-04-23] MEDS ORDERED: LORazepam 2 MG/ML INJ IV STA ×2 (12:36→14:21)
--- NOTE | 2018-04-23 12:41 | ED ---
General Adult HPI - General Chief complaint: Chest Pain Stated complaint: Chest Pain Time Seen by Provider: 04/23/18 12:15 Source: patient, RN notes reviewed Mode of arrival: wheelchair Limitations: no limitations - History of Present Illness Initial comments: This is a 52-year-old female who presents emergency department with past medical history significant for heart attack and a pacemaker placement. She also states she has cardiomyopathy hypertension high cholesterol. Patient states she continues to smoke. Patient comes in today because she had chest pain she states she had a small episode yesterday but it went away she didn't think anything of it but today she had chest pain on the left upper chest that radiates into her shoulder and her neck. Patient states she also mildly short of breath. Patient states she's also little bit nauseated but she thinks it might just be her anxiety. Patient denies any diaphoretic episodes. Patient denies any palpitation. Patient denies any lightheadedness dizziness or near syncopal episode. Patient denies headache patient denies numbness weakness. Patient denies any recent fever chills or cough. Patient denies abdominal pain patient denies nausea vomiting diarrhea. Patient denies any leg swelling or calf tenderness. - Related Data Home Medications Medication Instructions Recorded Confirmed Spironolactone [Aldactone] 25 mg PO DAILY 06/20/14 04/23/18 Warfarin Sodium [Coumadin] 7.[facility] 12/06/14 04/23/18 Atorvastatin Calcium [Lipitor] 10 mg PO HS 04/06/16 04/23/18 ALPRAZolam [Xanax] 0.25 mg PO TID PRN 07/17/17 04/23/18 Acetaminophen Tab [Tylenol] 1,000 mg PO Q6H PRN 07/17/17 04/23/18 Albuterol Nebulized [Ventolin 2.5 mg INHALATION RT-QID PRN 07/17/17 04/23/18 Nebulized] Albuterol Sulfate [Proventil Hfa] 1 - 2 puff INHALATION RT-Q6H PRN 07/17/1701/03 Amiodarone [Cordarone] 100 mg PO DAILY 07/17/17 04/23/18 Lisinopril [Zestril] 2.5 mg PO DAILY 07/17/17 04/23/18 [place]-3 Fatty Acids/Fish Oil [Fish 1 cap PO DAILY 07/17/17 04/23/18 Oil 1,000 mg Softgel] Warfarin [Coumadin] 5 mg PO WE 07/17/17 04/23/18 traZODone HCL 50 mg PO HS PRN 07/17/17 04/23/18 Previous Rx's Medication Instructions Recorded Carvedilol [Coreg] 6.25 mg PO BID-W/MEALS #60 tab 11/30/17 Meclizine [Antivert] 25 mg PO TID PRN #15 tab 12/15/17 Ondansetron Odt [Zofran ODT] 4 mg PO Q8HR PRN #10 tab 12/15/17 Allergies Allergy/AdvReac Type Severity Reaction Status Date / Time No Known Allergies Allergy Verified 04/23/18 13:34 Review of Systems ROS Statement: Those systems with pertinent positive or pertinent negative responses have been documented in the HPI. ROS Other: All systems not noted in ROS Statement are negative. Past Medical History Past Medical History: COPD, Hyperlipidemia, Hypertension, Myocardial Infarction ([place]) Additional Past Medical History / Comment(s): cardiomyopathy, DVT ( 4 yrs ago), Last Myocardial Infarction Date:: 4 yrs ago History of Any Multi-Drug Resistant Organisms: None Reported Past Surgical History: AICD, Cholecystectomy Additional Past Surgical History / Comment(s): defibrillator Past Anesthesia/Blood Transfusion Reactions: No Reported Reaction Type of Cardiac Device: AICD Device Placement Date:: 2012 Past Psychological History: Anxiety Smoking Status: Current every day smoker Past Alcohol Use History: None Reported Past Drug Use History: None Reported - Past Family History Mother Family Medical History: Diabetes Mellitus, Hypertension Father Family Medical History: No Reported History General Exam - General Exam Comments Initial Comments: GENERAL: Patient is well-developed and well-nourished. Patient is nontoxic and well- hydrated and is in mild distress. ENT: Neck is soft and supple. No significant lymphadenopathy is noted. Oropharynx is clear. Moist mucous membranes. Neck has full range of motion without eliciting any pain. EYES: The sclera were anicteric and conjunctiva were pink and moist. Extraocular movements were intact and pupils were equal round and reactive to light. Eyelids were unremarkable. PULMONARY: Unlabored respirations. Good breath sounds bilaterally. No audible rales rhonchi or wheezing was noted. CARDIOVASCULAR: There is a regular rate and rhythm without any murmurs gallops or rubs. ABDOMEN: Soft and nontender with normal bowel sounds. No palpable organomegaly was noted. There is no palpable pulsatile mass. SKIN: Skin is clear with no lesions or rashes and otherwise unremarkable. NEUROLOGIC: Patient is alert and oriented x3. Cranial nerves II through XII are grossly intact. Motor and sensory are also intact. Normal speech, volume and content. Symmetrical smile. MUSCULOSKELETAL: Normal extremities with adequate strength and full range of motion. No lower extremity swelling or edema. No calf tenderness. LYMPHATICS: No significant lymphadenopathy is noted PSYCHIATRIC: Normal psychiatric evaluation. Normal interpersonal interactions appears functionally intact in deals appropriately with others. No signs of depression. No signs of anxiety. Limitations: no limitations Course Vital Signs 04/23/18 04/23/18 12:21 13:57 Temperature 98.2 F 97.7 F Pulse Rate 117 H 104 H Respiratory 20 18 Rate Blood Pressure 162/88 138/86 O2 Sat by Pulse 98 97 Oximetry Medical Decision Making - Medical Decision Making EKG shows a paced rhythm at a rate of 105 bpm [place] interval is 82 QRS is 156 QT intervals 410 QTC is 541. Patient's EKG shows occasional PVC as well. Chest x-ray shows no acute abnormality. Patient's obviously not taken the heparin because her INR is 1.0. So started the patient on heparin. I did give the patient some Ativan she was awful anxious. The Ativan seemed to really help the anxiety. I spoke with Dr. Burns and he agreed to admit the patient I admitted the patient I wrote admitting orders I continue the heparin and aspirin and Nitropaste on the floor. I consult cardiology as well. - Lab Data Result diagrams: 04/23/18 13:00 04/23/18 13:00 Lab Results 04/23/18 04/23/18 04/23/18 Range/Units 13:00 13:00 13:00 WBC 7.2 (3.8-10.6) k/uL RBC 5.19 (3.80-5.40) m/uL Hgb 15.1 (11.4-16.0) gm/dL Hct 44.2 (34.0-46.0) % MCV 85.1 (80.0-100.0) fL MCH 29.2 (25.0-35.0) pg MCHC 34.3 (31.0-37.0) g/dL RDW 15.0 (11.5-15.5) % Plt Count 147 L (150-450) k/uL Neutrophils % 68 % Lymphocytes % 21 % Monocytes % 5 % Eosinophils % 4 % Basophils % 0 % Neutrophils # 4.9 (1.3-7.7) k/uL Lymphocytes # 1.5 (1.0-4.8) k/uL Monocytes # 0.4 (0-1.0) k/uL Eosinophils # 0.3 (0-0.7) k/uL Basophils # 0.0 (0-0.2) k/uL PT (9.0-12.0) sec INR (<1.2) APTT (22.0-30.0) sec Sodium 142 (137-145) mmol/L Potassium 4.1 (3.5-5.1) mmol/L Chloride 107 (98-107) mmol/L Carbon Dioxide 25 (22-30) mmol/L Anion Gap 10 mmol/L BUN 11 (7-17) mg/dL Creatinine 0.78 (0.52-1.04) mg/dL Est GFR (CKD-EPI)AfAm >90 (>60 ml/min/1.73 sqM) Est GFR (CKD-EPI)NonAf 87 (>60 ml/min/1.73 sqM) Glucose 93 (74-99) mg/dL Calcium 9.5 (8.4-10.2) mg/dL Magnesium 1.9 (1.6-2.3) mg/dL Total Bilirubin 0.7 (0.2-1.3) mg/dL AST 25 (14-36) U/L ALT 29 (9-52) U/L Alkaline Phosphatase 107 (38-126) U/L Total Creatine Kinase 129 (30-135) U/L CK-MB (CK-2) 2.2 (0.0-2.4) ng/mL CK-MB (CK-2) Rel Index 1.7 Troponin I <0.012 (0.000-0.034) ng/mL Total Protein 7.5 (6.3-8.2) g/dL Albumin 4.3 (3.5-5.0) g/dL 04/23/18 Range/Units 13:00 WBC (3.8-10.6) k/uL RBC (3.80-5.40) m/uL Hgb (11.4-16.0) gm/dL Hct (34.0-46.0) % MCV (80.0-100.0) fL MCH (25.0-35.0) pg MCHC (31.0-37.0) g/dL RDW (11.5-15.5) % Plt Count (150-450) k/uL Neutrophils % % Lymphocytes % % Monocytes % % Eosinophils % % Basophils % % Neutrophils # (1.3-7.7) k/uL Lymphocytes # (1.0-4.8) k/uL Monocytes # (0-1.0) k/uL Eosinophils # (0-0.7) k/uL Basophils # (0-0.2) k/uL PT 10.2 (9.0-12.0) sec INR 1.0 (<1.2) APTT 22.6 (22.0-30.0) sec Sodium (137-145) mmol/L Potassium (3.5-5.1) mmol/L Chloride (98-107) mmol/L Carbon Dioxide (22-30) mmol/L Anion Gap mmol/L BUN (7-17) mg/dL Creatinine (0.52-1.04) mg/dL Est GFR (CKD-EPI)AfAm (>60 ml/min/1.73 sqM) Est GFR (CKD-EPI)NonAf (>60 ml/min/1.73 sqM) Glucose (74-99) mg/dL Calcium (8.4-10.2) mg/dL Magnesium (1.6-2.3) mg/dL Total Bilirubin (0.2-1.3) mg/dL AST (14-36) U/L ALT (9-52) U/L Alkaline Phosphatase (38-126) U/L Total Creatine Kinase (30-135) U/L CK-MB (CK-2) (0.0-2.4) ng/mL CK-MB (CK-2) Rel Index Troponin I (0.000-0.034) ng/mL Total Protein (6.3-8.2) g/dL Albumin (3.5-5.0) g/dL Critical Care Time Critical Care Time: Yes Total Critical Care Time: 35 Disposition Clinical Impression: Unstable angina pectoris Disposition: ADMITTED IP TO THIS HOSP Is patient prescribed a controlled substance at d/c from ED?: No Referrals: Daniel Mosqueda MD [Primary Care Provider] - 1-2 days Time of Disposition: 14:56
[2018-04-23 13:11] LABS: Basophils % (A) 0 %; Eosinophils # (A) 0.3 k/uL (0-0.7); Eosinophils % (A) 4 %; HCT 44.2 % (34.0-46.0); HGB 15.1 gm/dL (11.4-16.0); Lymphocytes # (A) 1.5 k/uL (1.0-4.8); Lymphocytes % (A) 21 %; MCH 29.2 pg (25.0-35.0); MCHC 34.3 g/dL (31.0-37.0); MCV 85.1 fL (80.0-100.0); Mean Platelet Volume 8.3; Monocytes # (A) 0.4 k/uL (0-1.0); Monocytes % (A) 5 %; Neutrophils # (A) 4.9 k/uL (1.3-7.7); Neutrophils % (A) 68 %; Platelet Count 147 k/uL (150-450); RBC 5.19 m/uL (3.80-5.40); WBC 7.2 k/uL (3.8-10.6)
[2018-04-23 13:19] LABS: Partial Thromboplastin Time 22.6 sec (22.0-30.0); Prothrombin Time 10.2 sec (9.0-12.0)
--- NOTE | 2018-04-23 13:21 | XR ---
EXAMINATION TYPE: XR chest 2V DATE OF EXAM: 04/23/2018 HISTORY: Chest Pain. REFERENCE: Previous study dated 02/19/2018. FINDINGS: there is a multilead pacing device in place on the left. Heart size upper limits of normal. Lung volumes are prominent. The lungs are clear. Pleural space are clear. IMPRESSION: 1. COPD. 2. BORDERLINE CARDIOMEGALY.
[2018-04-23 13:28] LABS: ALT 29 U/L (9-52); AST 25 U/L (14-36); Albumin 4.3 g/dL (3.5-5.0); Alkaline Phosphatase 107 U/L (38-126); Anion Gap 10 mmol/L; Blood Urea Nitrogen 11 mg/dL (7-17); Calcium 9.5 mg/dL (8.4-10.2); Carbon Dioxide 25 mmol/L (22-30); Chloride 107 mmol/L (98-107); Glucose 93 mg/dL (74-99); Magnesium 1.9 mg/dL (1.6-2.3); Potassium 4.1 mmol/L (3.5-5.1); Sodium 142 mmol/L (137-145); Total Bilirubin 0.7 mg/dL (0.2-1.3); Total Protein 7.5 g/dL (6.3-8.2)
[2018-04-23 13:34] LABS: Creatine Kinase 129 U/L (30-135)
[2018-04-23 13:46] LABS: Creatine Kinase MB 2.2 ng/mL (0.0-2.4); Troponin I <0.012 ng/mL (0.000-0.034)
[2018-04-23] MEDS ORDERED: HEPARIN SODIUM,PORCINE 5,000 UNIT/ML 1 ML VIAL IV ONE (14:50)
[2018-04-23] MEDS ORDERED: NITROGLYCERIN SL TABS 0.4 MG TAB SUBLINGUAL PRN (14:58)
[2018-04-23] MEDS: HEPARIN SOD,PORK IN 0.45% NACL 25,000 UNIT in 0.45% NACL 1 500ML.BAG IV SCH (15:24)
[2018-04-23] MEDS ORDERED: KETOROLAC 30 MG/ML 1 ML VIAL IVP STA (15:34)
[2018-04-23 19:33] VITALS: BMI 35.8
[2018-04-23 19:33] LABS: Creatine Kinase 123 U/L (30-135)
[2018-04-23 19:43] LABS: Creatine Kinase MB 1.7 ng/mL (0.0-2.4); Troponin I <0.012 ng/mL (0.000-0.034)
[2018-04-23] MEDS: NITROGLYCERIN OINT 1 INCH/GM PACKET TOPICAL SCH ×2 (20:50→23:56)
[2018-04-23] MEDS ORDERED: MORPHINE SULFATE 2 MG/ML SYRINGE IVP STA (23:38)
[2018-04-23] MEDS ORDERED: BUTALB/APAP/CAFF 50-325-40MG TAB PO PRN (23:38)
[2018-04-23] MEDS ORDERED: ONDANSETRON 4 MG/2 ML VIAL IVP PRN (23:50)
[2018-04-24 00:48] LABS: Creatine Kinase 119 U/L (30-135)
[2018-04-24 01:01] LABS: Creatine Kinase MB 1.9 ng/mL (0.0-2.4); Troponin I <0.012 ng/mL (0.000-0.034)
[2018-04-24] MEDS: traZODone HCL 50 MG TAB PO PRN ×2 (01:58→23:49)
[2018-04-24] MEDS: NITROGLYCERIN OINT 1 INCH/GM PACKET TOPICAL SCH (06:26)
[2018-04-24 06:54] LABS: Cholesterol 227 mg/dL (<200); HDL Cholesterol 23 mg/dL (40-60)
[2018-04-24 07:18] LABS: Triglycerides 644 mg/dL (<150)
--- NOTE | 2018-04-24 09:40 | CONS ---
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 She describes it as a sharp precordial pain right over the defibrillator site that further radiates to her shoulder. It is sharp, mild to moderate intensity at rest. It gets worse with movements, unrelated to exertion and associated with diaphoresis and there is no history of shortness of breath. At the time of my evaluation, patient appears comfortable at rest and her predominant symptom is in the form of migraine headaches. The patient has nitroglycerin paste on which I am going to stop. Her chest discomfort does not sound anginal in nature. EKG shows paced rhythm. Cardiac enzymes have been negative. She apparently had a cardiac catheterization in 2011 that did not reveal significant obstructive CAD. She does not require further cardiac evaluation at this time. She is on heparin which she is going to continue as her INR is subtherapeutic at 1.0. However, if she is covered for Lovenox, we can start her on Lovenox. Continue the Coumadin. Discharge her home and arrange follow up with her networking technology instructor, Dr. Reece. PAST MEDICAL HISTORY: Significant for ischemic dilated cardiomyopathy, prophylactic AICD, COPD, apical thrombus, hypertension, dyslipidemia. MEDICATIONS: Include Coumadin, Aldactone, Zofran, Antivert, Zestril, Coreg, Lipitor, amiodarone, albuterol, Tylenol, and Xanax. ALLERGIES: No known drug allergies. FAMILY HISTORY: Negative for premature coronary artery disease. SOCIAL HISTORY: Negative for current smoking, EtOH abuse, or drug abuse. REVIEW OF SYSTEMS: HEENT is unremarkable. CARDIAC: As described above. RESPIRATORY: Negative. GI: Negative. GENITOURINARY: Negative. ALLERGY/IMMUNOLOGY: Negative. MUSCULOSKELETAL: Significant for musculoskeletal chest pain. PSYCHOSOCIAL: Negative. ENDOCRINE: Negative. DERM: Negative. HEMATOLOGIC: Negative. CONSTITUTIONAL: Negative. ONCOLOGICAL: Negative. The rest of the system review is not relevant. EXAM: Patient is afebrile. Heart rate is 80 beats per minute. Blood pressure is 120/66, respiratory rate is 18, O2 sat is 92% on room air. There is no jugular venous distention. Carotid upstroke is diminished. There is no bruit. Chest exam reveals good air entry bilaterally. Heart exam reveals first and second heart sounds. No gallop. No murmur. No rub. Abdomen is soft, nontender. Exam of extremities did not reveal any edema. Peripheral pulses are felt. LABS: Showed that the cardiac enzymes are negative. The patient had an echocardiogram done in November of 2017 that showed severe LV dysfunction with an ejection fraction of 20% to 25%. ASSESSMENT: 1. Chest pain. 2. Dilated cardiomyopathy. 3. History of cardiac thrombus. 4. Hypertension. 5. Dyslipidemia. PLAN: Patient's chest discomfort is atypical, probably musculoskeletal. Does not require further workup at this time. She can follow up with her networking technology instructor and may consider an outpatient stress test if necessary. She does not need an echocardiogram. She is on IV heparin and will resume Coumadin. Maintain an INR of 2-2.5. The patient tells me that she is taking Coumadin regularly, but she is somewhat has not had any INR checked in more than a month. MMODL / IJN: [id number] /
[2018-04-24] MEDS ORDERED: ALPRAZolam 0.25 MG TAB PO STA (09:58)
[2018-04-24] MEDS ORDERED: WARFARIN 7.5 MG TAB PO SCH (10:00)
[2018-04-24] MEDS: BUTALB/APAP/CAFF 50-325-40MG TAB PO PRN ×2 (10:27→17:43)
[2018-04-24] MEDS: SPIRONOLACTONE 25 MG TAB PO SCH (10:27)
[2018-04-24] MEDS: AMIODARONE 100 MG TAB PO SCH (10:27)
[2018-04-24] MEDS: CARVEDILOL 6.25 MG TAB PO SCH ×2 (10:27→15:40)
[2018-04-24] MEDS: LISINOPRIL 2.5 MG TAB PO SCH (10:27)
[2018-04-24] MEDS: ASPIRIN 325 MG TAB PO SCH (10:27)
[2018-04-24] MEDS ORDERED: HEPARIN SODIUM,PORCINE 5,000 UNIT/ML 1 ML VIAL IV PRN (10:39)
[2018-04-24 10:48] LABS: INR 1.1 (<1.2); Prothrombin Time 10.7 sec (9.0-12.0)
[2018-04-24] MEDS ORDERED: HEPARIN SODIUM,PORCINE 5,000 UNIT/ML 1 ML VIAL IV ONE (11:00)
[2018-04-24] MEDS: HEPARIN SOD,PORK IN 0.45% NACL 25,000 UNIT in 0.45% NACL 1 500ML.BAG IV SCH (11:02)
[2018-04-24] MEDS ORDERED: ALBUTEROL NEBULIZED 2.5 MG/3 ML INHALATION PRN (11:16)
[2018-04-24] MEDS ORDERED: ACETAMINOPHEN TAB 500 MG TAB PO PRN (11:16)
[2018-04-24] MEDS ORDERED: ALBUTEROL INHALER 60 PUFF/8 GM INHALER INHALATION PRN (11:16)
--- NOTE | 2018-04-24 13:10 | HP ---
HISTORY AND PHYSICAL CHIEF COMPLAINT: Chest pains. PRESENT ILLNESS: This is another admission for this 52-year-old white female who has cardiomyopathy, is very noncompliant and does not take care of herself. she presented to the emergency room with chest pain in the anterior chest wall area. She has had no fever, chills, cough, hemoptysis, etc. Studies in the ER were negative. INR was subtherapeutic. She states she is taking her Coumadin, but she usually does not. REVIEW OF SYSTEMS: She has had no headaches, diaphoresis, orthopnea, abdominal pain, vomiting, urinary complaints, etc. Past medical history, family history, personal and social histories are all otherwise unremarkable or unchanged. It is not known what medicine she is or is not taking. PHYSICAL EXAMINATION: Blood pressure is 128/71 with a pulse of 83, respirations of 32 and she is afebrile. In general, she appeared to be overweight. Face is flushed. Head, ears, eyes, nose, mouth, and throat were otherwise normal. Neck veins not distended. The chest was clear. There are no rales or rhonchi. Cardiac exam is unremarkable with no murmurs or extra sounds. The anterior chest wall was slightly tender. Abdomen is soft, nontender without visceromegaly or masses. Extremities normal. Neurological is intact. IMPRESSION: 1. Anterior chest pain. 2. Cardiomyopathy. 3. Depression. PLAN: 1. Bed rest. 2. IV fluids. 3. Serial EKGs and enzymes. 4. Cardiology consult. 5. Anticoagulate. MMODL / IJN: [id number] /
--- NOTE | 2018-04-24 13:16 | PN ---
PROGRESS NOTE DATE OF SERVICE: 04/24/2018 CHIEF COMPLAINT: Chest pain. HISTORY OF PRESENT ILLNESS: This lady is still having some chest discomfort. She has been seen by Cardiology and they cleared her once her INR is therapeutic. PHYSICAL EXAM: She is a little bit tender in the anterior chest. Cardiac exam is unchanged. Chest is clear. Abdomen is soft, nontender. IMPRESSION: 1. Chest pain, probably not cardiac. 2. Cardiomyopathy. 3. Depression. PLAN: Continue on heparin until she is satisfactorily anticoagulated with Coumadin. MMODL / IJN: [id number] /
[2018-04-24] MEDS: HEPARIN SODIUM,PORCINE 5,000 UNIT/ML 1 ML VIAL IV PRN ×2 (15:40→23:18)
[2018-04-25] MEDS: BUTALB/APAP/CAFF 50-325-40MG TAB PO PRN (01:46)
[2018-04-25] MEDS: CARVEDILOL 6.25 MG TAB PO SCH (06:32)
[2018-04-25 08:01] LABS: INR 1.1 (<1.2); Partial Thromboplastin Time 40.5 sec (22.0-30.0); Prothrombin Time 10.5 sec (9.0-12.0)
[2018-04-25] MEDS: LISINOPRIL 2.5 MG TAB PO SCH (08:03)
[2018-04-25] MEDS: SPIRONOLACTONE 25 MG TAB PO SCH (08:03)
[2018-04-25] MEDS: AMIODARONE 100 MG TAB PO SCH (08:04)
[2018-04-25] MEDS: ASPIRIN 325 MG TAB PO SCH (08:04)
[2018-04-25] MEDS: HEPARIN SODIUM,PORCINE 5,000 UNIT/ML 1 ML VIAL IV PRN (08:37)
[2018-04-25] MEDS: HEPARIN SOD,PORK IN 0.45% NACL 25,000 UNIT in 0.45% NACL 1 500ML.BAG IV SCH (08:40)
[2018-04-25 08:47] VITALS: RESP 20
[2018-04-25 13:45] VITALS: BP 119/67; PULSE 75; TEMP 97.5
--- NOTE | 2018-04-25 15:31 | P.PN ---
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 She described her pain as a sharp chest pain right over the site of her defibrillator placement. Pain appeared to be very atypical in nature, patient was seen in consultation yesterday by Dr. Qureshi. Cardiac enzymes came back to be normal EKG showed a paced rhythm. Patient does not require further cardiac evaluation at this time, she continues to be on heparin because her INR is subtherapeutic. We did check to see regarding Lovenox coverage, patient apparently is covered to go home on Lovenox. We can monitor the INRs as an outpatient. Objective - Vital Signs Vital signs: Vital Signs Temp 97.5 F L 04/25/18 12:00 Pulse 75 04/25/18 12:00 Resp 20 04/25/18 12:00 BP 119/67 04/25/18 12:00 Pulse Ox 93 L 04/25/18 12:00 Intake & Output 04/24/18 04/25/18 04/25/18 18:59 06:59 18:59 Intake Total 494.643 446.972 328.293 Output Total 1 Balance 493.643 446.972 328.293 Weight 107.3 kg Intake: IV 160 0.9 160 Intake, IV Titration 374.643 286.972 88.293 Amount Heparin Sod,Pork in 0.45% 374.643 286.972 88.293 NaCl 25,000 unit In 0.45 % NaCl 1 500ml.bag @ 9. 586 UNITS/KG/HR 20 mls/hr IV .Q24H [facility] Rx#: [id number] Oral 120 240 Output: Urine 1 Other: Voiding Method Toilet # Voids 1 2 1 # Bowel Movements 1 - Exam PHYSICAL EXAMINATION: GENERAL: 52-year-old female in no acute distress at the time of my examination HEENT: Head is atraumatic, normocephalic. Pupils equal, round. Sclera anicteric. Conjunctiva are clear. Mucous membranes of the mouth are moist. Neck is supple. There is no elevated jugular venous pressure.] bruit is heard. HEART EXAMINATION: Heart S1, S2 normal. No murmur or gallop heard. CHEST EXAMINATION: Lungs are clear to auscultation and precussion. No chest wall tenderness is noted on palpation or with deep breathing. ABDOMEN: Soft, nontender. Bowel sounds are heard. No organomegaly noted. EXTREMITIES: 2+ peripheral pulses with no evidence of peripheral edema and no calf tenderness noted. NEUROLOGIC patient is awake, alert and oriented ?-3. . - Labs CBC & Chem 7: 04/23/18 13:00 04/23/18 13:00 Labs: Abnormal Lab Results - Last 24 Hours (Table) 04/24/18 04/25/18 Range/Units 22:10 07:10 APTT 40.8 H 40.5 H (22.0-30.0) sec Assessment and Plan Plan: Assessment and plan #1 chest pain, atypical in nature, enzymes negative. Paced rhythm. #2 dilated cardiomyopathy #3 history of cardiac thrombus, on Coumadin for anticoagulation #4 hypertension #5 hyperlipidemia Plan We did check to see whether the patient had coverage for Lovenox, she is covered to go home on Lovenox 100 mg subcu twice a day for at least 3 day duration, we will check a PT/INR on Wednesday and subsequent INRs until the patient becomes therapeutic in the range of 2-2.5. She has been instructed to follow-up with her sales and management trainee post discharge. DNP note has been reviewed, I agree with a documented findings and plan of care. Patient was seen and examined.
--- NOTE | 2018-04-25 16:26 | PN ---
PROGRESS NOTE DATE OF SERVICE: 04/25/2018 CHIEF COMPLAINT: Chest pain and cardiomyopathy. HISTORY OF PRESENT ILLNESS: This lady is doing well and is still having a little bit of anterior chest pain. Other than that, there has been no change. PHYSICAL EXAMINATION: Cardiac exam is unchanged. Chest is clear. The abdomen is slightly protuberant. IMPRESSION: 1. Chest pain. 2. Cardiomyopathy. PLAN: She is anxious to be discharged, but she will be kept in the hospital on heparin until her INR is therapeutic. This is also what is recommended by Cardiology. MMODL / IJN: [id number] /
--- NOTE | 2018-04-25 22:32 | DS ---
DISCHARGE SUMMARY DATE OF DISCHARGE: 04/25/2018 CHIEF COMPLAINT: Chest pain. HISTORY OF PRESENT ILLNESS AND PHYSICAL EXAMINATION: Details of this lady's history and physical can be found in the initial workup. LABORATORY STUDIES: While she was in the hospital she had laboratory studies, details of which can be found in the laboratory section of her chart. COURSE IN THE HOSPITAL: After admission she was placed on bedrest, started on intravenous fluids, and she had serial EKGs and enzymes which were normal. She was placed on telemetry and seen by Cardiology. She has been very noncompliant and was not taking Coumadin. She was placed on heparin, and the feeling by Cardiology was that she should stay in the hospital until she is fully anticoagulated again on Coumadin. However, she signed herself out AGAINST MEDICAL ADVICE on April 25. We will follow her up as an outpatient, if she will come in. FINAL DIAGNOSES: 1. Anterior chest wall pain. 2. Cardiomyopathy. OPERATIONS: None. CONSULTATION: Cardiology. She is improved. MMMARIBEL / MARION: [id number] /
[2018-04-26] MEDS ORDERED: ASPIRIN 81 MG PO SCH (09:00)
[2018-04-27] MEDS ORDERED: WARFARIN 5 MG TAB PO SCH (18:00)
== END 2018-04-25 15:38 | disposition left against medical advice (07) | DRG 313 ==
LOC: EC 12:14 → 6SEL 14:58
PROVIDERS: ADMIT Family Medicine; ATTEND Family Medicine
DX: R07.89 Other chest pain (principal); I42.0 Dilated cardiomyopathy; E78.00 Pure hypercholesterolemia, unspecified; E78.5 Hyperlipidemia, unspecified; F17.200 Nicotine dependence, unspecified, uncomplicated; F32.9 Major depressive disorder, single episode, unspecified; F41.9 Anxiety disorder, unspecified; R11.0 Nausea; G43.909 Migraine, unspecified, not intractable, without status migrainosus; I10 Essential (primary) hypertension; I25.2 Old myocardial infarction; I49.3 Ventricular premature depolarization; J44.9 Chronic obstructive pulmonary disease, unspecified; Z79.01 Long term (current) use of anticoagulants; Z82.49 Family history of ischemic heart disease and other diseases of the circulatory system; Z83.3 Family history of diabetes mellitus; Z91.19 Patient's noncompliance with other medical treatment and regimen; Z95.810 Presence of automatic (implantable) cardiac defibrillator; Z86.718 Personal history of other venous thrombosis and embolism; Z79.899 Other long term (current) drug therapy
CPT/HCPCS: 36415; 71046; 80053; 80061; 82550; 82553; 83735; 84484; 85025; 85610; 85730; 93005; 96365; 96366; 96375; 96376; 99291

== ENCOUNTER 2018-11-13 14:25 | Observation (INO) | payer MEDICARE ==
[2018-11-13] MEDS ORDERED: HYDROmorphone 1 MG/ML 1 ML SYRINGE IVP STA (14:59)
[2018-11-13] MEDS ORDERED: SODIUM CHLORIDE 0.9% 1,000 ML IV STA (14:59)
[2018-11-13] MEDS ORDERED: PANTOPRAZOLE 40 MG/10 ML VIAL IVP STA (14:59)
[2018-11-13] MEDS ORDERED: ONDANSETRON 4 MG/2 ML VIAL IVP STA ×2 (14:59→16:09)
--- NOTE | 2018-11-13 15:03 | ED ---
General Adult HPI - General Chief complaint: Recheck/Abnormal Lab/Rx Stated complaint: abd spasms after coughing Time Seen by Provider: 11/13/18 14:52 Source: patient, RN notes reviewed Mode of arrival: ambulatory Limitations: no limitations - History of Present Illness Initial comments: Patient is a pleasant 53-year-old female presenting to the emergency department with abdominal discomfort. Onset of symptoms was this morning. Patient is having spasms of her left upper abdomen. Symptoms have been intermittent/waxing and waning. Discomfort mild at this time. No history of similar symptoms previously. No chest pain or dyspnea. Patient has mild nausea. No vomiting. No constipation or diarrhea. No fevers. - Related Data Home Medications Medication Instructions Recorded Confirmed Spironolactone [Aldactone] 25 mg PO DAILY 06/20/14 11/13/18 Warfarin Sodium [Coumadin] 7.5 mg PO SUMOTUTHFRSA 12/06/14 11/13/18 Atorvastatin Calcium [Lipitor] 10 mg PO HS 04/06/16 11/13/18 ALPRAZolam [Xanax] 0.25 mg PO TID PRN 07/17/17 11/13/18 Acetaminophen Tab [Tylenol] 1,000 mg PO Q6H PRN 07/17/17 11/13/18 Albuterol Nebulized [Ventolin 2.5 mg INHALATION RT-QID PRN 07/17/17 11/13/18 Nebulized] Albuterol Sulfate [Proventil Hfa] 1 - 2 puff INHALATION RT-Q6H PRN 07/17/17 11/13/18 Amiodarone [Cordarone] 100 mg PO DAILY 07/17/17 11/13/18 Lisinopril [Zestril] 2.5 mg PO DAILY 07/17/17 11/13/18 [place]-3 Fatty Acids/Fish Oil [Fish 1 cap PO DAILY 07/17/17 11/13/18 Oil 1,000 mg Softgel] Warfarin [Coumadin] 5 mg PO WE 07/17/17 11/13/18 traZODone HCL 50 mg PO HS PRN 07/17/17 11/13/18 Previous Rx's Medication Instructions Recorded Carvedilol [Coreg] 6.25 mg PO BID-W/MEALS #60 tab 11/30/17 Meclizine [Antivert] 25 mg PO TID PRN #15 tab 12/15/17 Ondansetron Odt [Zofran ODT] 4 mg PO Q8HR PRN #10 tab 12/15/17 Allergies Allergy/AdvReac Type Severity Reaction Status Date / Time No Known Allergies Allergy Verified 11/13/18 15:47 Review of Systems ROS Statement: Those systems with pertinent positive or pertinent negative responses have been documented in the HPI. ROS Other: All systems not noted in ROS Statement are negative. Constitutional: Denies: fever Eyes: Denies: eye pain ENT: Denies: ear pain Respiratory: Denies: dyspnea Cardiovascular: Denies: chest pain Endocrine: Denies: fatigue Gastrointestinal: Reports: abdominal pain, nausea. Denies: vomiting Genitourinary: Denies: dysuria Musculoskeletal: Denies: back pain Skin: Denies: rash Neurological: Denies: weakness Past Medical History Past Medical History: COPD, Hyperlipidemia, Hypertension, Myocardial Infarction ([place]) Additional Past Medical History / Comment(s): cardiomyopathy, DVT ( 4 yrs ago), Last Myocardial Infarction Date:: 4 yrs ago History of Any Multi-Drug Resistant Organisms: None Reported Past Surgical History: AICD, Cholecystectomy Additional Past Surgical History / Comment(s): defibrillator Past Anesthesia/Blood Transfusion Reactions: No Reported Reaction Type of Cardiac Device: AICD Device Placement Date:: 2012 Past Psychological History: Anxiety Smoking Status: Former smoker Past Alcohol Use History: None Reported Past Drug Use History: None Reported - Past Family History Mother Family Medical History: Diabetes Mellitus, Hypertension Father Family Medical History: No Reported History General Exam Limitations: no limitations General appearance: alert, in no apparent distress Head exam: Present: atraumatic Eye exam: Present: normal appearance, PERRL ENT exam: Present: normal oropharynx Neck exam: Present: normal inspection Respiratory exam: Present: normal lung sounds bilaterally Cardiovascular Exam: Present: regular rate, normal rhythm Expanded Peripheral pulses: 2+: Dorsalis Pedis (R), Dorsalis Pedis (L) GI/Abdominal exam: Present: soft, tenderness (Mild tenderness left upper abdomen), normal bowel sounds. Absent: distended, guarding, rebound, rigid, pulsatile mass Extremities exam: Present: normal inspection Neurological exam: Present: alert Psychiatric exam: Present: normal affect, normal mood Course Vital Signs 11/13/18 11/13/18 11/13/18 14:42 15:28 16:35 Temperature 98.3 F Pulse Rate 127 H 112 H 101 H Respiratory 18 18 18 Rate Blood Pressure 128/88 118/85 117/90 O2 Sat by Pulse 97 94 L 94 L Oximetry - Reevaluation(s) Reevaluation #1: 11/13/18 16:14 EKG #2 at 1608 shows paced rhythm at 108. FL 112. QRS 164. QT 426. QTC 570. Normal axis. Wide-complex QRS. T wave inversion in V6. EKG Findings - EKG Comments: EKG Findings:: Atrial paced rhythm with a rate of 113. FL 92. QRS 158. QT 410. QTc 462. Normal axis. Wide-complex QRS. Lateral T wave inversion. Medical Decision Making - Medical Decision Making Patient reevaluated and resting in bed. Patient complains of continued nausea and has been dry heaving. Abdomen is soft with mild tenderness left upper abdomen. Patient states she did have similar symptoms to this once in the past and her pacemaker needed adjustment. Jaylin has been paged. - Lab Data Result diagrams: 11/13/18 15:11 11/13/18 15:11 Lab Results 11/13/18 11/13/18 11/13/18 Range/Units 15:11 15:11 15:11 WBC 7.5 (3.8-10.6) k/uL RBC 5.29 (3.80-5.40) m/uL Hgb 15.5 (11.4-16.0) gm/dL Hct 44.6 (34.0-46.0) % MCV 84.4 (80.0-100.0) fL MCH 29.4 (25.0-35.0) pg MCHC 34.8 (31.0-37.0) g/dL RDW 15.0 (11.5-15.5) % Plt Count 200 (150-450) k/uL Neutrophils % 58 % Lymphocytes % 30 % Monocytes % 6 % Eosinophils % 3 % Basophils % 1 % Neutrophils # 4.3 (1.3-7.7) k/uL Lymphocytes # 2.2 (1.0-4.8) k/uL Monocytes # 0.4 (0-1.0) k/uL Eosinophils # 0.2 (0-0.7) k/uL Basophils # 0.1 (0-0.2) k/uL Poikilocytosis Slight PT 10.2 (9.0-12.0) sec INR 0.9 (<1.2) APTT 23.2 (22.0-30.0) sec Sodium 139 (137-145) mmol/L Potassium 4.4 (3.5-5.1) mmol/L Chloride 106 (98-107) mmol/L Carbon Dioxide 23 (22-30) mmol/L Anion Gap 10 mmol/L BUN 13 (7-17) mg/dL Creatinine 0.67 (0.52-1.04) mg/dL Est GFR (CKD-EPI)AfAm >90 (>60 ml/min/1.73 sqM) Est GFR (CKD-EPI)NonAf >90 (>60 ml/min/1.73 sqM) Glucose 93 (74-99) mg/dL Calcium 9.9 (8.4-10.2) mg/dL Total Bilirubin 0.8 (0.2-1.3) mg/dL AST 35 (14-36) U/L ALT 45 (9-52) U/L Alkaline Phosphatase 122 (38-126) U/L Creatine Kinase 89 (30-135) U/L Troponin I (0.000-0.034) ng/mL Total Protein 7.8 (6.3-8.2) g/dL Albumin 4.6 (3.5-5.0) g/dL Amylase 56 (30-110) U/L Lipase 67 (23-300) U/L Urine Color Urine Appearance (Clear) Urine pH (5.0-8.0) Ur Specific [place] (1.001-1.035) Urine Protein (Negative) Urine Glucose (UA) (Negative) Urine Ketones (Negative) Urine Blood (Negative) Urine Nitrite (Negative) Urine Bilirubin (Negative) Urine Urobilinogen (<2.0) mg/dL Ur Leukocyte Esterase (Negative) Urine RBC (0-5) /hpf Urine WBC (0-5) /hpf Ur Squamous Epith Cells (0-4) /hpf Urine Bacteria (None) /hpf Urine Mucus (None) /hpf 11/13/18 11/13/18 Range/Units 15:11 15:42 WBC (3.8-10.6) k/uL RBC (3.80-5.40) m/uL Hgb (11.4-16.0) gm/dL Hct (34.0-46.0) % MCV (80.0-100.0) fL MCH (25.0-35.0) pg MCHC (31.0-37.0) g/dL RDW (11.5-15.5) % Plt Count (150-450) k/uL Neutrophils % % Lymphocytes % % Monocytes % % Eosinophils % % Basophils % % Neutrophils # (1.3-7.7) k/uL Lymphocytes # (1.0-4.8) k/uL Monocytes # (0-1.0) k/uL Eosinophils # (0-0.7) k/uL Basophils # (0-0.2) k/uL Poikilocytosis PT (9.0-12.0) sec INR (<1.2) APTT (22.0-30.0) sec Sodium (137-145) mmol/L Potassium (3.5-5.1) mmol/L Chloride (98-107) mmol/L Carbon Dioxide (22-30) mmol/L Anion Gap mmol/L BUN (7-17) mg/dL Creatinine (0.52-1.04) mg/dL Est GFR (CKD-EPI)AfAm (>60 ml/min/1.73 sqM) Est GFR (CKD-EPI)NonAf (>60 ml/min/1.73 sqM) Glucose (74-99) mg/dL Calcium (8.4-10.2) mg/dL Total Bilirubin (0.2-1.3) mg/dL AST (14-36) U/L ALT (9-52) U/L Alkaline Phosphatase (38-126) U/L Creatine Kinase (30-135) U/L Troponin I <0.012 (0.000-0.034) ng/mL Total Protein (6.3-8.2) g/dL Albumin (3.5-5.0) g/dL Amylase (30-110) U/L Lipase (23-300) U/L Urine Color Yellow Urine Appearance Cloudy H (Clear) Urine pH 5.0 (5.0-8.0) Ur Specific [place] 1.016 (1.001-1.035) Urine Protein Trace H (Negative) Urine Glucose (UA) Negative (Negative) Urine Ketones Negative (Negative) Urine Blood Negative (Negative) Urine Nitrite Negative (Negative) Urine Bilirubin Negative (Negative) Urine Urobilinogen <2.0 (<2.0) mg/dL Ur Leukocyte Esterase Trace H (Negative) Urine RBC 1 (0-5) /hpf Urine WBC 4 (0-5) /hpf Ur Squamous Epith Cells 9 H (0-4) /hpf Urine Bacteria Rare H (None) /hpf Urine Mucus Rare H (None) /hpf - Radiology Data Radiology results: report reviewed (Computed tomography scan of the abdomen and pelvis shows no acute process), image reviewed (Chest x-ray reveals no acute process) Disposition Clinical Impression: Abdominal pain, Intractable vomiting Disposition: ADMITTED IP TO THIS HOSP Is patient prescribed a controlled substance at d/c from ED?: No Referrals: Daniel Mosqueda MD [Primary Care Provider] - 1-2 days Decision Time: 16:57
[2018-11-13 15:29] LABS: Basophils # (A) 0.1 k/uL (0-0.2); Basophils % (A) 1 %; Eosinophils # (A) 0.2 k/uL (0-0.7); Eosinophils % (A) 3 %; HCT 44.6 % (34.0-46.0); HGB 15.5 gm/dL (11.4-16.0); Lymphocytes # (A) 2.2 k/uL (1.0-4.8); Lymphocytes % (A) 30 %; MCH 29.4 pg (25.0-35.0); MCHC 34.8 g/dL (31.0-37.0); MCV 84.4 fL (80.0-100.0); Mean Platelet Volume 8.6; Monocytes # (A) 0.4 k/uL (0-1.0); Monocytes % (A) 6 %; Neutrophils # (A) 4.3 k/uL (1.3-7.7); Neutrophils % (A) 58 %; Platelet Count 200 k/uL (150-450); Poikilocytosis Slight; RBC 5.29 m/uL (3.80-5.40); WBC 7.5 k/uL (3.8-10.6)
[2018-11-13 15:37] LABS: INR 0.9 (<1.2); Partial Thromboplastin Time 23.2 sec (22.0-30.0); Prothrombin Time 10.2 sec (9.0-12.0)
[2018-11-13 15:39] LABS: ALT 45 U/L (9-52); AST 35 U/L (14-36); Albumin 4.6 g/dL (3.5-5.0); Alkaline Phosphatase 122 U/L (38-126); Amylase 56 U/L (30-110); Anion Gap 10 mmol/L; Blood Urea Nitrogen 13 mg/dL (7-17); Calcium 9.9 mg/dL (8.4-10.2); Carbon Dioxide 23 mmol/L (22-30); Chloride 106 mmol/L (98-107); Creatine Kinase 89 U/L (30-135); Glucose 93 mg/dL (74-99); Lipase 67 U/L (23-300); Potassium 4.4 mmol/L (3.5-5.1); Sodium 139 mmol/L (137-145); Total Bilirubin 0.8 mg/dL (0.2-1.3); Total Protein 7.8 g/dL (6.3-8.2)
[2018-11-13 15:51] LABS: Appearance,Urine Cloudy (Clear); Bacteria,Urine Rare /hpf; Bilirubin,Urine Negative (Negative); Blood,Urine Negative (Negative); Color,Urine Yellow; Glucose,Urine (UA) Negative (Negative); Ketones,Urine Negative (Negative); Leukocyte Esterase,Urine Trace (Negative); Mucus,Urine Rare /hpf; Nitrite,Urine Negative (Negative); Protein,Urine Trace (Negative); RBC,Urine 1 /hpf (0-5); Specific Gravity,Urine 1.016 (1.001-1.035); Squamous Epithelial Cell,Urine 9 /hpf (0-4); Urobilinogen,Urine <2.0 mg/dL (<2.0); WBC,Urine 4 /hpf (0-5)
--- NOTE | 2018-11-13 16:28 | CT ---
EXAMINATION TYPE: CT abdomen pelvis wo con DATE OF EXAM: 11/13/2018 COMPARISON: 10/12/2014 HISTORY: left side abdominal pain CT DLP: 1045.4 mGycm Automated exposure control for dose reduction was used. TECHNIQUE: Helical acquisition of images was performed from the lung bases through the pelvis. FINDINGS: There is subsegmental atelectasis at the left posterior lung base. Heart size is normal. There is no pericardial effusion. Liver is large and measures 23 cm. Spleen is enlarged and measures 15 cm. There is no pancreatic mass. Bile ducts are not dilated. There are clips from cholecystectomy. Stomach walter ears normal. There is no adrenal mass. Kidneys have normal size. There is no hydronephrosis. There is 3 cm cortica l cyst interpolar left kidney. There is no retroperitoneal adenopathy. Ureters are not dilated. Bladder distends smoothly. Uterus is anteverted. There is no free fluid in the pelvis. There is no ev idence of a pelvic mass. There is no mesenteric edema. There is no ascites. Appendix appears normal. There is no intestinal wall thickening. There is no sign of free air. There is no ascites. There is s mall umbilical hernia that contains fat. Bony structures are intact. There is no lumbar compression f racture. IMPRESSION: Hepatosplenomegaly. No dilated ducts. There is clearing of the minimal pleural fluid at the left lung base compared to old exam. Hepatosplenomegaly unchanged compared to old exam.
--- NOTE | 2018-11-13 16:40 | XR ---
EXAMINATION TYPE: XR chest 2V DATE OF EXAM: 11/13/2018 COMPARISON: 04/23/2018 HISTORY: Cough TECHNIQUE: Frontal and lateral views of the chest are obtained. FINDINGS: There is no heart failure nor confluent pneumonic infiltrate. Costophrenic angles are juan miguel r. There is a left axillary pacemaker. Bony thorax is intact. IMPRESSION: No active cardiopulmonary disease. Normal heart. No change.
[2018-11-13] MEDS ORDERED: NALOXONE 0.4 MG/ML 1 ML VIAL IV PRN (16:57)
[2018-11-13] MEDS ORDERED: ONDANSETRON 4 MG/2 ML VIAL IVP PRN (16:57)
[2018-11-13] MEDS ORDERED: HYDROmorphone 1 MG/ML 1 ML SYRINGE IVP PRN (16:57)
[2018-11-13] MEDS ORDERED: METOCLOPRAMIDE 5 MG/ML 2 ML VIAL IVP PRN (16:59)
[2018-11-13] MEDS: SODIUM CHLORIDE 0.9% 1,000 ML IV SCH (17:08)
[2018-11-13 18:28] VITALS: BMI 36.2
[2018-11-13] MEDS ORDERED: ALBUTEROL NEBULIZED 2.5 MG/3 ML INHALATION PRN ×2 (19:20)
[2018-11-13] MEDS ORDERED: ONDANSETRON ODT 4 MG TAB PO PRN (19:20)
[2018-11-13] MEDS ORDERED: traZODone HCL 50 MG TAB PO PRN (19:20)
[2018-11-13] MEDS ORDERED: MECLIZINE 25 MG TAB PO PRN (19:20)
[2018-11-13] MEDS: WARFARIN 7.5 MG TAB PO SCH (20:45)
[2018-11-13] MEDS: ATORVASTATIN 10 MG TAB PO SCH (20:45)
[2018-11-13] MEDS: ACETAMINOPHEN TAB 500 MG TAB PO PRN (23:24)
[2018-11-14] MEDS: SODIUM CHLORIDE 0.9% 1,000 ML IV SCH ×3 (03:25→22:45)
[2018-11-14] MEDS: ACETAMINOPHEN TAB 500 MG TAB PO PRN ×3 (05:40→20:06)
[2018-11-14] MEDS ORDERED: NON-FORMULARY DRUG (Omega-3 Fatty Acids/Fish Oil [Fish Oil 1,000 Mg Softgel] 1 CAP) PO SCH (09:00)
[2018-11-14] MEDS: LISINOPRIL 2.5 MG TAB PO SCH (09:38)
[2018-11-14] MEDS: PANTOPRAZOLE 40 MG/10 ML VIAL IV SCH (09:38)
[2018-11-14] MEDS: AMIODARONE 100 MG TAB PO SCH (09:38)
[2018-11-14] MEDS: CARVEDILOL 6.25 MG TAB PO SCH ×2 (09:38→18:22)
[2018-11-14] MEDS: SPIRONOLACTONE 25 MG TAB PO SCH (09:43)
--- NOTE | 2018-11-14 10:13 | P.CRDCN ---
History of Present Illness History of present illness: This is a pleasant 53-year-old female with history of V. fib arrest, nonischemic cardiomyopathy status post biventricular ICD implantation, hypertension, COPD, dyslipidemia and history of PE in the past maintained on long-term anticoagulation. She also is noncompliant with office visits and pacemaker checks. She last saw Dr. Magana in the office July 2016. She presented to the hospital with symptoms of abdominal discomfort. She states she swallowed some coffee early yesterday morning and choke on it briefly. Since that occurred she was feeling what she describes as a spasm in the left upper quadrant of her abdomen. This happens intermittently with no specific preci pitating factor and lasts for a few seconds, subsiding on its own. She denies associated shortness of breath, dizziness, nausea, vomiting or diaphoresis. She is having no chest pain or palpitations. EKG reveals left bundle branch block with atrial pacing. Chest x-ray is negative for an acute cardiopulmonary process. Laboratory data reviewed, WBC 7.5, hemoglobin 15.5, platelets 200, sodium 139, potassium 4.4, creatinine 0.67, cardiac enzymes negative 1, INR 0.9. Current cardiac medications include amiodarone 100 mg daily, atorvastatin 10 mg daily, carvedilol 6.25 mg twice a day, lisinopril 2.5 mg daily, Aldactone 25 mg daily and Coumadin. Most recent echocardiogram obtained November 2017 reveals severely impaired left ventricular systolic function with ejection fraction 20-25%. At the time of my exam: CONSTITUTIONAL: Denies fever. Denies chills. EYES: Denies blurred vision. Denies vision changes. Denies eye pain. EARS, NOSE, MOUTH & THROAT: Denies headache. Denies sore throat. Denies ear pain. CARDIOVASCULAR: Denies chest pain. Denies shortness of breath. Denies orthopnea. Denies PND. Denies palpitations. RESPIRATORY: Denies cough. GASTROINTESTINAL: Denies abdominal pain. Denies diarrhea. Denies constipation. Denies nausea. Denies vomiting. MUSCULOSKELETAL: Denies myalgias. INTEGUMENTARY: Denies pruitis. Denies rash. NEUROLOGIC: Denies numbness. Denies tingling. Denies weakness. PSYCHIATRIC: Denies anxiety. Denies depression. ENDOCRINE: Denies fatigue. Denies weight change. Denies polydipsia. Denies polyurina. GENITOURINARY: Denies burning, hematuria or urgency with micturation. HEMATOLOGIC: Denies history of anemia. Denies bleeding. Blood pressure 109/63 heart rate 74 afebrile maintaining oxygen saturation on room air GENERAL: This is a 53-year-old female in no apparent distress at the time of my examination. HEENT: Head is atraumatic, normocephalic. Pupils are equal, round. Sclerae anicteric. Conjunctivae are clear. Mucous membranes of the mouth are moist. Neck is supple. There is no jugular venous distention. No carotid bruit is heard. LUNGS: Clear to auscultation no wheezes, rales or rhonchi. No chest wall tenderness is noted on palpation or with deep breathing. HEART: Regular rate and rhythm without murmurs, rubs or gallops. S1 and S2 heard. ABDOMEN: Soft, nontender. Bowel sounds are heard. No organomegaly noted. EXTREMITIES: No evidence of peripheral edema and no calf tenderness noted. VASCULAR: Radial and dorsalis pedis pulses palpated, no evidence of clubbing. NEUROLOGIC: Patient is awake, alert and oriented x3. 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 Interrogate her device with [facility]. Further recommendations to follow based on clinical course. Thank you kindly for this consultation. Nurse Practitioner note has been reviewed, I agree with a documented findings and plan of care. Patient was seen and examined. Past Medical History Past Medical History: COPD, Deep Vein Thrombosis (DVT), Eye Disorder, Hyperlipid emia, Hypertension, Myocardial Infarction ([place]), Pneumonia Additional Past Medical History / Comment(s): cardiomyopathy, DVT ( 4 yrs ago), Last Myocardial Infarction Date:: 4 yrs ago History of Any Multi-Drug Resistant Organisms: None Reported Past Surgical History: AICD, Cholecystectomy Additional Past Surgical History / Comment(s): defibrillator Past Anesthesia/Blood Transfusion Reactions: No Reported Reaction Type of Cardiac Device: AICD Device Placement Date:: 2012 Past Psychological History: Anxiety, Depression Smoking Status: Former smoker Past Alcohol Use History: None Reported Past Drug Use History: None Reported - Past Family History Mother Family Medical History: Diabetes Mellitus, Hypertension Father Family Medical History: No Reported History Medications and Allergies Home Medications Medication Instructions Recorded Confirmed Type Spironolactone [Aldactone] 25 mg PO DAILY 06/20/14 11/13/18 History Warfarin Sodium [Coumadin] 7.5 mg PO SUMOTUTHFRSA 12/06/14 11/13/18 History Atorvastatin Calcium [Lipitor] 10 mg PO HS 04/06/16 11/13/18 History ALPRAZolam [Xanax] 0.25 mg PO TID PRN 07/17/17 11/13/18 History Acetaminophen Tab [Tylenol] 1,000 mg PO Q6H PRN 07/17/17 11/13/18 History Albuterol Nebulized [Ventolin 2.5 mg INHALATION RT-QID PRN 07/17/17 11/13/18 History Nebulized] Albuterol Sulfate [Proventil Hfa] 1 - 2 puff INHALATION RT-Q6H PRN 07/17/17 11/13/18 History Amiodarone [Cordarone] 100 mg PO DAILY 07/17/17 11/13/18 History Lisinopril [Zestril] 2.5 mg PO DAILY 07/17/17 11/13/18 History [place]-3 Fatty Acids/Fish Oil [Fish 1 cap PO DAILY 07/17/17 11/13/18 History Oil 1,000 mg Softgel] Warfarin [Coumadin] 5 mg PO WE 07/17/17 11/13/18 History traZODone HCL 50 mg PO HS PRN 07/17/17 11/13/18 History Carvedilol [Coreg] 6.25 mg PO BID-W/MEALS #60 tab 11/30/17 11/13/18 Rx Meclizine [Antivert] 25 mg PO TID PRN #15 tab 12/15/17 11/13/18 Rx Ondansetron Odt [Zofran ODT] 4 mg PO Q8HR PRN #10 tab 12/15/17 11/13/18 Rx Allergies Allergy/AdvReac Type Severity Reaction Status Date / Time No Known Allergies Allergy Verified 11/13/18 15:47 Physical Exam Vitals: Vital Signs Temp Pulse Pulse Resp BP BP Pulse Ox 11/14/18 07:16 74 11/14/18 07:06 72 11/14/18 04:12 98.1 F 105 H 16 109/64 98 11/14/18 03:17 16 11/14/18 00:00 98.0 F 67 15 128/82 98 11/13/18 20:00 16 11/13/18 19:25 97.9 F 67 14 122/68 98 11/13/18 17:41 97.8 F 100 16 120/80 90 L 11/13/18 17:32 94 18 154/86 94 L 11/13/18 16:35 101 H 18 117/90 94 L 11/13/18 15:28 112 H 18 118/85 94 L 11/13/18 14:42 98.3 F 127 H 18 128/88 97 Intake and Output 11/13/18 11/14/18 11/14/18 22:59 06:59 14:59 Other: # Voids 1 Results 11/13/18 15:11 11/13/18 15:11 Cardiac Enzymes 11/13/18 11/13/18 Range/Units 15:11 15:11 AST 35 (14-36) U/L Troponin I <0.012 (0.000-0.034) ng/mL Coagulation 11/13/18 Range/Units 15:11 PT 10.2 (9.0-12.0) sec APTT 23.2 (22.0-30.0) sec CBC 11/13/18 Range/Units 15:11 WBC 7.5 (3.8-10.6) k/uL RBC 5.29 (3.80-5.40) m/uL Hgb 15.5 (11.4-16.0) gm/dL Hct 44.6 (34.0-46.0) % Plt Count 200 (150-450) k/uL Comprehensive Metabolic Panel 11/13/18 Range/Units 15:11 Sodium 139 (137-145) mmol/L Potassium 4.4 (3.5-5.1) mmol/L Chloride 106 (98-107) mmol/L Carbon Dioxide 23 (22-30) mmol/L BUN 13 (7-17) mg/dL Creatinine 0.67 (0.52-1.04) mg/dL Glucose 93 (74-99) mg/dL Calcium 9.9 (8.4-10.2) mg/dL AST 35 (14-36) U/L ALT 45 (9-52) U/L Alkaline Phosphatase 122 (38-126) U/L Total Protein 7.8 (6.3-8.2) g/dL Albumin 4.6 (3.5-5.0) g/dL Current Medications Generic Name Dose Route Start Last Admin Trade Name Freq PRN Reason Stop Dose Admin Acetaminophen 1,000 mg 11/13/18 19:20 11/14/18 05:40 Tylenol Tab PO 1,000 mg Q6H PRN Administration Pain Albuterol Sulfate 2.5 mg 11/13/18 19:20 11/14/18 07:05 Ventolin Nebulized INHALATION 2.5 mg RT-Q6H PRN Administration Shortness Of Breath Alprazolam 0.25 mg 11/13/18 19:20 Xanax PO TID PRN Anxiety Amiodarone HCl 100 mg 11/14/18 09:00 Cordarone PO DAILY [facility] Atorvastatin Calcium 10 mg 11/13/18 21:00 11/13/18 20:45 Lipitor PO 10 mg HS DUNCAN Administration Carvedilol 6.25 mg 11/14/18 07:30 Coreg PO BID-W/MEALS [facility] Hydromorphone HCl 1 mg 11/13/18 16:57 11/13/18 18:38 Dilaudid IVP 1 mg Q3HR PRN Administration Severe Pain Sodium Chloride 1,000 mls @ 130 mls/hr 11/13/18 17:00 11/14/18 03:25 Saline 0.9% IV 130 mls/hr .[id number] DUNCAN Administration Lisinopril 2.5 mg 11/14/18 09:00 Zestril PO DAILY [facility]AN Meclizine HCl 25 mg 11/13/18 19:20 Antivert PO TID PRN Vertigo Metoclopramide HCl 5 mg 11/13/18 16:59 11/13/18 20:44 Reglan IVP 5 mg Q6HR PRN Administration Nausea And Vomiting Naloxone HCl 0.2 mg 11/13/18 16:57 Narcan IV Q2M PRN Opioid Reversal Ondansetron HCl 4 mg 11/13/18 16:57 11/13/18 23:26 Zofran IVP 4 mg Q8HR PRN Administration Nausea And Vomiting Ondansetron HCl 4 mg 11/13/18 19:20 Zofran Odt PO Q8HR PRN Nausea Pantoprazole Sodium 40 mg 11/14/18 09:00 Protonix IV DAILY [facility] Spironolactone 25 mg 11/14/18 09:00 Aldactone PO DAILY [facility] Trazodone HCl 50 mg 11/13/18 19:20 Desyrel PO HS PRN Insomnia Warfarin Sodium 5 mg 11/16/18 18:00 Coumadin PO We@1800 [facility] Warfarin Sodium 7.5 mg 11/13/18 19:30 11/13/18 20:45 Coumadin PO 7.5 mg [id number] [facility] Administration Intake and Output 11/13/18 11/14/18 11/14/18 22:59 06:59 14:59 Other: # Voids 1 11/13/18 15:11 11/13/18 15:11
[2018-11-14 10:59] LABS: Cholesterol 266 mg/dL (<200); HDL Cholesterol 22 mg/dL (40-60)
[2018-11-14 11:12] LABS: Triglycerides 620 mg/dL (<150)
--- NOTE | 2018-11-14 15:26 | HP ---
HISTORY AND PHYSICAL CHIEF COMPLAINT: Right-sided chest and right upper quadrant pain with vomiting. HISTORY OF PRESENT ILLNESS: This is another admission for this 53-year-old white female who has had cardiac problems in the past including syncopal event secondary to ventricular fibrillation. She apparently started choking at home and then begin to cough and threw up a small amount gastric contents. She then began to notice sharp pain in the upper abdomen without fever and chills, vomiting, etc and she came to emergency room. There, here cardiac studies were normal. She was still having some discomfort in the upper abdomen and it was decided that she should be admitted. She was also stating that she thought that maybe her defibrillator leads had pulled loose and it was planned that she would be interrogated by Cardiology. REVIEW OF SYSTEMS: She has had no focal neurologic deficits, syncope, change in vision or hearing, cough, hemoptysis, sputum production, diaphoresis, arrhythmias, abdominal pain, nausea, vomiting, hematemesis, melena, hematochezia, colitis, diverticulosis, diverticulitis, hemorrhoids, jaundice, hepatitis, cirrhosis, hematuria, frequency, urgency, arthralgias, etc. Past medical history, family history, personal and social histories reveal that she is not allergic to any medication. She is currently on: 1. Xanax 0.5 t.i.d. p.r.n. 2. Lisinopril 2.5 once a day. 3. Spironolactone 25 once a day. 4. Trazodone 50 mg 1 or 2 at bedtime. 5. Carvedilol 6.25 twice a day. 6. Atorvastatin 10 once a day at bedtime. 7. Amiodarone 200 mg once a day. 8. Jantoven 6 mg once a day. 9. Vicodin 5 q.4 p.r.n. 10.Ventolin HFA. 11.Wellbutrin SR 150 twice a day. 12.Vitamin D. 13.Advair. 14.Zofran. The remainder of her history is unremarkable. She used to smoke, but has quit. She has a history of viral cardiomyopathy with an NC in 2016. She does not drink and she quit smoking a number of years ago. PHYSICAL EXAM: Blood pressure 130/78, pulse 74, respirations 14, she is afebrile. In general, she appears to be slightly overweight, in no acute distress. Skin was normal. Lymph nodes are not enlarged. Head, ears, eyes, nose, mouth and throat revealed face to be flushed. Ears are clear. Head, ears, nose. mouth and throat were normal. Chest is clear to auscultation and percussion. The cardiac exam sounded like sinus rhythm and no murmurs or extra sounds. Abdomen is soft, nontender without any visceromegaly or masses. Bowel sounds are present. Extremities are normal and neurologically she is intact. IMPRESSION: 1. Upper quadrant and right chest wall pain, etiology unknown. Probably musculoskeletal. 2. History of cardiac arrhythmia with ventricular tachycardia. 3. Hypertension. 4. Hyperlipidemia. PLAN: 1. Bed rest. 2. IV fluids. 3. Serial EKGs and enzymes. 4. Consult with Cardiology to interrogate her pacemaker defibrillator. NEERAJ / MARION: [id number] /
--- NOTE | 2018-11-14 15:35 | PN ---
PROGRESS NOTE DATE OF SERVICE: 11/14/2018 CHIEF COMPLAINT: Chest and abdominal pain following choking episode. HISTORY OF PRESENT ILLNESS: This lady is doing well and she is having no problems. She is going to be seen by Cardiology who will interrogate her device. She is always very anxious. Chest is clear. Cardiac exam is unchanged. and the abdomen is soft, nontender. IMPRESSION: 1. Chest and abdominal wall pain. 2. History of cardiac arrhythmia with syncope. PLAN: 1. Progress activity and diet. 2. Await cardiology's recommendations. MMODL / IJN: [id number] /
[2018-11-14] MEDS: WARFARIN 7.5 MG TAB PO SCH (18:22)
[2018-11-14] MEDS: ALPRAZolam 0.25 MG TAB PO PRN (18:24)
--- NOTE | 2018-11-14 18:55 | ECHOF ---
Referral Reason:cp, hx cardiomyopathy MEASUREMENTS -------- HEIGHT: 172.7 cm WEIGHT: 108.0 kg BP: 109/63 IVSd: 1.3 cm (0.6 - 1.1) LVIDd: 6.4 cm (3.9 - 5.3) LVPWd: 1.4 cm (0.6 - 1.1) IVSs: 1.8 cm LVIDs: 5.7 cm LVPWs: 1.6 cm LA Diam: 3.5 cm (2.7 - 3.8) RVIDd: 3.0 cm (< 3.3) LAESV Index (A-L): 26.40 ml/m Ao Diam: 3.4 cm (2.0 - 3.7) AV Cusp: 2.2 cm (1.5 - 2.6) EPSS: 2.0 cm RAP: 5.00 mmHg RVSP: 21.28 mmHg MV EF SLOPE: 101.47 mm/s (70 - 150) MV EXCURSION: 14.58 mm (> 18.000) FINDINGS -------- Paced rhythm. This was a technically adequate study. The left ventricle is severely dilated. There is moderate concentric left ventricular hypertrophy. Overall left ventricular systolic function is severely impaired with, an EF between 20 - 25 %. The right ventricle is normal in size. Normal LA size by volume 22+/-6 ml/m2. The right atrium is normal in size. There is mild aortic valve sclerosis. Mild mitral annular calcification present. Mild mitral regurgitation is present. Mild tricuspid regurgitation present. Right ventricular systolic pressure is normal at < 35 mmHg. Trace/mild (physiologic) pulmonic regurgitation. The aortic root size is normal. Normal inferior vena cava with normal inspiratory collapse consistent with estimated right atrial pre ssure of 5 mmHg. There is no pericardial effusion. CONCLUSIONS -------- 1. Paced rhythm. 2. This was a technically adequate study. 3. The left ventricle is severely dilated. 4. There is moderate concentric left ventricular hypertrophy. 5. Overall left ventricular systolic function is severely impaired with, an EF between 20 - 25 %. 6. The right ventricle is normal in size. 7. Normal LA size by volume 22+/-6 ml/m2. 8. The right atrium is normal in size. 9. There is mild aortic valve sclerosis. 10. Mild mitral annular calcification present. 11. Mild mitral regurgitation is present. 12. Mild tricuspid regurgitation present. 13. Right ventricular systolic pressure is normal at < 35 mmHg. 14. Trace/mild (physiologic) pulmonic regurgitation. 15. The aortic root size is normal. 16. Normal inferior vena cava with normal inspiratory collapse consistent with estimated right atrial pressure of 5 mmHg. 17. There is no pericardial effusion. HEAD FILTER TANK TENDER HELPER: Janine Haines RDCS
[2018-11-14] MEDS: ATORVASTATIN 10 MG TAB PO SCH (20:07)
[2018-11-15 07:56] VITALS: TEMP 97.7
[2018-11-15] MEDS: PANTOPRAZOLE 40 MG/10 ML VIAL IV SCH (09:10)
[2018-11-15] MEDS: CARVEDILOL 6.25 MG TAB PO SCH (09:10)
[2018-11-15] MEDS: SPIRONOLACTONE 25 MG TAB PO SCH (09:10)
[2018-11-15] MEDS: LISINOPRIL 2.5 MG TAB PO SCH (09:13)
[2018-11-15] MEDS: AMIODARONE 100 MG TAB PO SCH (09:13)
[2018-11-15] MEDS: ALPRAZolam 0.25 MG TAB PO PRN (09:15)
--- NOTE | 2018-11-15 10:17 | P.PN ---
Subjective This is a pleasant 53-year-old female with history of V. fib arrest, nonischemic cardiomyopathy status post biventricular ICD implantation, hypertension, COPD, dyslipidemia and history of PE in the past maintained on long-term anticoagulation. She also is noncompliant with office visits and pacemaker checks. She last saw Dr. Magana in the office July 2016. She presented to the hospital with symptoms of abdominal discomfort, this has resolved completely. Echo obtained revealed severely impaired LV systolic function with ejection fraction 20-25%, severely dilated LV, mild aortic valve sclerosis, mild mitral regurgitation and mild tricuspid regurgitation. Device interrogation reveals a normally functioning device, further details and Dr. Magana's interrogation procedure note. Blood pressure 110/62 heart rate 82 afebrile maintaining oxygen saturation on room air. Patient is seen and examined resting comfortably in bed in no acute distress. She denies symptoms of chest discomfort, shortness of breath, dizziness or palpitations. She states she has difficulty getting her prescriptions refilled her primary care phys ician's office and is requesting refills upon discharge. She states she has struggled with insurance issues in the past medical/she has not come to the office. Lengthy discussion was had with the patient regarding compliance and follow-up at very least for device interrogations. GENERAL: This is a 53-year-old female in no apparent distress at the time of my examination. HEENT: Head is atraumatic, normocephalic. Pupils are equal, round. Sclerae anicteric. Conjunctivae are clear. Mucous membranes of the mouth are moist. Neck is supple. There is no jugular venous distention. No carotid bruit is heard. LUNGS: Clear to auscultation no wheezes, rales or rhonchi. No chest wall tenderness is noted on palpation or with deep breathing. HEART: Regular rate and rhythm without murmurs, rubs or gallops. S1 and S2 heard. EXTREMITIES: No evidence of peripheral edema and no calf tenderness noted. ASSESSMENT Abdominal cramping and spasm, unknown etiology. Resolved. 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 Pt is requesting refills on all of her cardiac medications, they have been transmitted electronically to [facility]. Primary team to address coumadin. Lifestyle modifications for lowering of triglycerides. Lengthy discussion had regarding compliance and follow up in the office. She states her insurance has been an issue in the past and she will make a better attempt to follow up in the device clinic. Nurse Practitioner note has been reviewed, I agree with a documented findings and plan of care. Patient was seen and examined. Objective - Vital Signs Vital signs: Vital Signs Temp 97.7 F 11/15/18 07:55 Pulse 82 11/15/18 07:55 Resp 15 11/15/18 07:55 BP 110/62 11/15/18 07:55 Pulse Ox 95 11/15/18 07:55 Intake & Output 11/14/18 11/15/18 11/15/18 18:59 06:59 18:59 Intake Total 666 240 Balance 666 240 Intake: Oral 666 240 Other: Voiding Method Toilet Toilet # Voids 1 1 - Labs CBC & Chem 7: 11/13/18 15:11 11/13/18 15:11 Labs: Abnormal Lab Results - Last 24 Hours (Table) 11/13/18 Range/Units 15:11 Triglycerides 620 H (<150) mg/dL Cholesterol 266 H (<200) mg/dL HDL Cholesterol 22 L (40-60) mg/dL
[2018-11-15 11:32] VITALS: BP 98/65; PULSE 74; RESP 16
--- NOTE | 2018-11-15 19:59 | P.PCN ---
Preoperative Diagnosis: [email or web address] device interrogation, biventricular ICD 5 nonsustained VT episodes noted Atrial pacing percentage less than 1% P waves 2 mV Pacing impedance 465 ohms Pacing threshold 0.75 V at 0.5 ms RV pacing percentage is 95% R waves 20 mV, pacing impedance 681 ohms, pacing threshold 2.8 V at 0.5 ms LV pacing present is 95%, R waves 10.7 mV, pacing impedance 610 ohms pacing threshold 1.9 V at 1.5 ms Shocking impedance 90 ohms charge time 10.5 seconds, estimated longevity 3.5 years No diaphragmatic stimulation was noted The following changes were made Atrial pacing amplitude 2 V, RV pacing amplitude change to 3 V at 1 ms and LV pacing amplitude increased
--- NOTE | 2018-11-16 06:51 | DS ---
DISCHARGE SUMMARY CHIEF COMPLAINT: Abdominal pain with chest pain and concern that the defibrillator was not working. HISTORY OF PRESENT ILLNESS AND PHYSICAL EXAM: Details of this lady's history and physical can be found in the initial workup. LABORATORY STUDIES: While she was in the hospital, she had laboratory studies, details of which can be found in the laboratory section of her chart. COURSE IN HOSPITAL: After admission, she was placed on bedrest, started on intravenous fluids and telemetry and she was seen by Cardiology. They interrogated her device and felt that it was functioning normally. They felt that she could be discharged home on the and she will go home on her usual activity, diet and medication without any without any changes and she will be seen in followup in the next several days. FINAL DIAGNOSES: 1. Chest pain. 2. History of ventricular arrhythmia and cardiac arrest. 3. Anxiety. OPERATIONS: None. CONSULTATIONS: Cardiology. She is improved. MMAZUCENAL / SAKINA: [id number] /
[2018-11-16] MEDS ORDERED: PANTOPRAZOLE 40 MG TABLET PO SCH (09:00)
[2018-11-16] MEDS ORDERED: WARFARIN 5 MG TAB PO SCH (18:00)
== END 2018-11-15 13:31 | disposition home or self-care (01) ==
LOC: EC 14:25 → 1SOBS 16:58
PROVIDERS: ADMIT Family Medicine; ATTEND Family Medicine
DX: R10.12 Left upper quadrant pain (principal); R07.89 Other chest pain; I10 Essential (primary) hypertension; E78.5 Hyperlipidemia, unspecified; Z87.891 Personal history of nicotine dependence; I44.7 Left bundle-branch block, unspecified; F41.9 Anxiety disorder, unspecified; I42.9 Cardiomyopathy, unspecified; R79.1 Abnormal coagulation profile; Z91.19 Patient's noncompliance with other medical treatment and regimen; Z86.711 Personal history of pulmonary embolism; Z79.01 Long term (current) use of anticoagulants; Z79.899 Other long term (current) drug therapy; Z86.718 Personal history of other venous thrombosis and embolism; Z90.49 Acquired absence of other specified parts of digestive tract; Z95.810 Presence of automatic (implantable) cardiac defibrillator; I25.2 Old myocardial infarction; Z87.01 Personal history of pneumonia (recurrent); Z86.79 Personal history of other diseases of the circulatory system; J44.9 Chronic obstructive pulmonary disease, unspecified; Z83.3 Family history of diabetes mellitus; Z82.49 Family history of ischemic heart disease and other diseases of the circulatory system
CPT/HCPCS: 96375 ×2; 96376 ×3; 96374; 99285; 36415; 94640; 93005; 93306; 80061; 80053; 82150; 82550; 83690; 84484; 85025; 85610; 85730; 81001; 71046; 74176; 93261; G0378 ×3; J2765; J2405; J1170; C9113 ×2

== ENCOUNTER 2019-12-28 14:58 | Emergency (ER) | payer MEDICARE ==
[2019-12-28 15:11] VITALS: RESP 18; TEMP 98.8
[2019-12-28] MEDS ORDERED: KETOROLAC 60 MG/2 ML VIAL IM STA (15:29)
--- NOTE | 2019-12-28 15:37 | ED ---
General Adult HPI - General Chief complaint: Recheck/Abnormal Lab/Rx Stated complaint: pain in arm/has pacemaker Time Seen by Provider: 12/28/19 15:10 Source: patient, RN notes reviewed, old records reviewed Mode of arrival: wheelchair Limitations: no limitations - History of Present Illness Initial comments: This is a 54-year-old female who presents to the emergency department complaining of posterior left arm pain in the soft tissue. Patient states his been ongoing for 3 days and it is getting progressively worse. Patient states she's done no heavy lifting or exercises or has had any trauma to the area. Patient states the soft tissue in the posterior left arm is exquisitely tender to palpation. Patient denies any chest pain difficult breathing shortness of breath. Patient states if she moves her arm fast really exacerbates the pain. Patient did not notice any swelling or redness however she does state that he feels a little bit pleitez. Patient is on Coumadin because she has had a clot before. Patient denies any recent fever chills or cough. Patient denies any lightheadedness or dizziness. Patient denies palpitations. - Related Data Home Medications Medication Instructions Recorded Confirmed Warfarin Sodium [Coumadin] 7.5 mg PO SUMOTUTHFRSA 12/06/14 11/13/18 ALPRAZolam [Xanax] 0.25 mg PO TID PRN 07/17/17 11/13/18 Acetaminophen Tab [Tylenol] 1,000 mg PO Q6H PRN 07/17/17 11/13/18 Albuterol Nebulized [Ventolin 2.5 mg INHALATION RT-QID PRN 07/17/17 11/13/18 Nebulized] Albuterol Sulfate [Proventil Hfa] 1 - 2 puff INHALATION RT-Q6H PRN 07/17/17 11/13/18 [place]-3 Fatty Acids/Fish Oil [Fish 1 cap PO DAILY 07/17/17 11/13/18 Oil 1,000 mg Softgel] Warfarin [Coumadin] 5 mg PO WE 07/17/17 11/13/18 traZODone HCL 50 mg PO HS PRN 07/17/17 11/13/18 Previous Rx's Medication Instructions Recorded Meclizine [Antivert] 25 mg PO TID PRN #15 tab 12/15/17 Ondansetron Odt [Zofran ODT] 4 mg PO Q8HR PRN #10 tab 12/15/17 Amiodarone [Cordarone] 100 mg PO DAILY #90 tab 11/15/18 Atorvastatin Calcium [Lipitor] 10 mg PO HS #90 tablet 11/15/18 Carvedilol [Coreg] 6.25 mg PO BID-W/MEALS #180 tab 11/15/18 Lisinopril [Zestril] 2.5 mg PO DAILY #90 tab 11/15/18 Spironolactone [Aldactone] 25 mg PO DAILY #90 tab 11/15/18 Allergies Allergy/AdvReac Type Severity Reaction Status Date / Time hydromorphone [From Dilaudid] AdvReac Vomiting Verified 12/28/19 15:11 Review of Systems ROS Statement: Those systems with pertinent positive or pertinent negative responses have been documented in the HPI. ROS Other: All systems not noted in ROS Statement are negative. Past Medical History Past Medical History: COPD, Deep Vein Thrombosis (DVT), Eye Disorder, Hyperlipidemia, Hypertension, Myocardial Infarction ([place]), Pneumonia Additional Past Medical History / Comment(s): cardiomyopathy, DVT ( 4 yrs ago), Last Myocardial Infarction Date:: 4 yrs ago History of Any Multi-Drug Resistant Organisms: None Reported Past Surgical History: AICD, Cholecystectomy Additional Past Surgical History / Comment(s): defibrillator Past Anesthesia/Blood Transfusion Reactions: No Reported Reaction Type of Cardiac Device: AICD Device Placement Date:: 2012 Past Psychological History: Anxiety, Depression Smoking Status: Former smoker Past Alcohol Use History: None Reported Past Drug Use History: None Reported - Past Family History Mother Family Medical History: Diabetes Mellitus, Hypertension Father Family Medical History: No Reported History General Exam - General Exam Comments Initial Comments: GENERAL: Patient is well-developed and well-nourished. Patient is nontoxic and well- hydrated and is in no acute distress. EYES: The sclera were anicteric and conjunctiva were pink and moist. Extraocular movements were intact and pupils were equal round and reactive to light. Eyelids were unremarkable. PULMONARY: Unlabored respirations. Good breath sounds bilaterally. No audible rales rhonchi or wheezing was noted. CARDIOVASCULAR: There is a regular rate and rhythm without any murmurs gallops or rubs. ABDOMEN: Soft and nontender with normal bowel sounds. No palpable organomegaly was noted. There is no palpable pulsatile mass. SKIN: Skin is clear with no lesions or rashes and otherwise unremarkable. NEUROLOGIC: Patient is alert and oriented x3. Cranial nerves II through XII are grossly intact. Motor and sensory are also intact. Normal speech, volume and content. Symmetrical smile. MUSCULOSKELETAL: Normal extremities with adequate strength and full range of motion. Patient has exquisite tenderness to the posterior left arm. Slight fullness in the posterior aspect no redness No obvious increase in size on inspection. LYMPHATICS: No significant lymphadenopathy is noted PSYCHIATRIC: Normal psychiatric evaluation. Limitations: no limitations Course Vital Signs 12/28/19 12/28/19 15:08 16:54 Temperature 98.8 F Pulse Rate 113 H 86 Respiratory 18 18 Rate Blood Pressure 147/78 115/74 O2 Sat by Pulse 98 95 Oximetry Medical Decision Making - Medical Decision Making Ultrasound of the upper arm shows no DVT. X-ray of the arm shows no acute abnormality. I went back in and reevaluated the patient she was comfortable while lying in bed but as soon as I touch the arm it did bring back quite a bit of pain for her. Patient states that she now remembers that she was lifting her granddaughter up a bunch this week and thinks maybe that is where she strained. Patient felt better after she received Toradol and morphine. Patient will follow the primary medical care doctor. - Lab Data Lab Results 12/28/19 Range/Units 17:44 PT 10.2 (9.0-12.0) sec INR 1.0 (<1.2) APTT 23.5 (22.0-30.0) sec Disposition Clinical Impression: Left upper arm pain Disposition: HOME SELF-CARE Condition: Good Instructions (If sedation given, give patient instructions): Arm Pain (ED) Is patient prescribed a controlled substance at d/c from ED?: No Referrals: Daniel Mosqueda MD [Primary Care Provider] - 1-2 days Time of Disposition: 18:15
--- NOTE | 2019-12-28 16:34 | US ---
EXAMINATION TYPE: US venous doppler duplex UE LT DATE OF EXAM: 12/28/2019 COMPARISON: NONE CLINICAL HISTORY: 54-year-old female Pain left upper arm . TECHNIQUE: Grayscale, color doppler, spectral doppler imaging performed of the deep veins of the uppe r extremities. SIDE PERFORMED: Left arm. FINDINGS: There is normal flow, compressibility and vascular waveforms. Left Arm: Negative for DVT IMPRESSION: No evidence for DVT within the left upper extremity.
[2019-12-28 16:56] VITALS: BP 115/74
[2019-12-28] MEDS ORDERED: MORPHINE SULFATE 2 MG/ML SYRINGE IM STA (16:57)
--- NOTE | 2019-12-28 18:05 | XR ---
PROCEDURE: XR humerus LT - 2V DATE AND TIME: 12/28/2019 5:13 PM CLINICAL INDICATION: Arm pain TECHNIQUE: Department protocol COMPARISON: None FINDINGS: There is no fracture or malalignment. The soft tissues are unremarkable. Scattered degenera tive joint changes are appreciated. IMPRESSION: No acute radiographic process.
[2019-12-28 18:10] LABS: Partial Thromboplastin Time 23.5 sec (22.0-30.0); Prothrombin Time 10.2 sec (9.0-12.0)
[2019-12-28 18:29] VITALS: PULSE 72
== END 2019-12-28 18:25 | disposition home or self-care (01) ==
LOC: EC 14:58
DX: M79.622 Pain in left upper arm (principal); J44.9 Chronic obstructive pulmonary disease, unspecified; F32.9 Major depressive disorder, single episode, unspecified; F41.9 Anxiety disorder, unspecified; I25.2 Old myocardial infarction; Z79.01 Long term (current) use of anticoagulants; Z88.8 Allergy status to other drugs, medicaments and biological substances; Z87.891 Personal history of nicotine dependence; Z95.810 Presence of automatic (implantable) cardiac defibrillator; Z86.718 Personal history of other venous thrombosis and embolism; Z87.01 Personal history of pneumonia (recurrent)
CPT/HCPCS: 99284; 96372 ×2; 36415; 85610; 85730; 73060; 93971; J1885; J2270

== ENCOUNTER 2020-03-06 15:33 | Emergency (ER) | payer MEDICARE ==
[2020-03-06 15:37] VITALS: TEMP 98.2
[2020-03-06] MEDS ORDERED: ONDANSETRON 4 MG/2 ML VIAL IVP STA (16:02)
[2020-03-06] MEDS ORDERED: SODIUM CHLORIDE 0.9% 1,000 ML IV STA (16:02)
[2020-03-06] MEDS ORDERED: LORazepam 2 MG/ML INJ IV STA (16:03)
[2020-03-06] MEDS ORDERED: KETOROLAC 15 MG/ML 1 ML VIAL IVP STA (16:09)
--- NOTE | 2020-03-06 16:10 | ED ---
General Adult HPI - General Chief complaint: Nausea/Vomiting/Diarrhea Stated complaint: nausea Time Seen by Provider: 03/06/20 15:45 Source: patient, RN notes reviewed Mode of arrival: ambulatory Limitations: no limitations - History of Present Illness Initial comments: 54-year-old female with a past medical history of COPD, DVT, hyperlipidemia, hypertension, PR presents to the emergency department for general malaise for the past 2 days.. Patient states she is just not feeling well overall. Patient reports that she is having nausea. she has also had several episodes of diarrhea on the past few days. Patient states she has had chills on and off. Patient also complains of a mild headache. States she has had these headaches consistently and that this is consistent with previous headaches. This is not the worst headache of her life.Patient has no other complaints at this time including shortness of breath, chest pain, abdominal pain, or visual changes. - Related Data Home Medications Medication Instructions Recorded Confirmed Warfarin Sodium [Coumadin] 7.5 mg PO SUMOTUTHFRSA 12/06/14 11/13/18 ALPRAZolam [Xanax] 0.25 mg PO TID PRN 07/17/17 11/13/18 Acetaminophen Tab [Tylenol] 1,000 mg PO Q6H PRN 07/17/17 11/13/18 Albuterol Nebulized [Ventolin 2.5 mg INHALATION RT-QID PRN 07/17/17 11/13/18 Nebulized] Albuterol Sulfate [Proventil Hfa] 1 - 2 puff INHALATION RT-Q6H PRN 07/17/17 11/13/18 [place]-3 Fatty Acids/Fish Oil [Fish 1 cap PO DAILY 07/17/17 11/13/18 Oil 1,000 mg Softgel] Warfarin [Coumadin] 5 mg PO WE 07/17/17 11/13/18 traZODone HCL 50 mg PO HS PRN 07/17/17 11/13/18 Previous Rx's Medication Instructions Recorded Meclizine [Antivert] 25 mg PO TID PRN #15 tab 12/15/17 Ondansetron Odt [Zofran ODT] 4 mg PO Q8HR PRN #10 tab 12/15/17 Amiodarone [Cordarone] 100 mg PO DAILY #90 tab 11/15/18 Atorvastatin Calcium [Lipitor] 10 mg PO HS #90 tablet 11/15/18 Spironolactone [Aldactone] 25 mg PO DAILY #90 tab 11/15/18 carvediloL [Coreg] 6.25 mg PO BID-W/MEALS #180 tab 11/15/18 lisinopriL [Zestril] 2.5 mg PO DAILY #90 tab 11/15/18 Ondansetron [Zofran ODT] 4 mg PO Q8HR PRN #15 tab 03/06/20 Allergies Allergy/AdvReac Type Severity Reaction Status Date / Time hydromorphone [From Dilaudid] AdvReac Vomiting Verified 12/28/19 15:11 Review of Systems ROS Statement: Those systems with pertinent positive or pertinent negative responses have been documented in the HPI. ROS Other: All systems not noted in ROS Statement are negative. Past Medical History Past Medical History: COPD, Deep Vein Thrombosis (DVT), Eye Disorder, Hyperlipidemia, Hypertension, Myocardial Infarction ([place]), Pneumonia Additional Past Medical History / Comment(s): cardiomyopathy, DVT ( 4 yrs ago), Last Myocardial Infarction Date:: 4 yrs ago History of Any Multi-Drug Resistant Organisms: None Reported Past Surgical History: AICD, Cholecystectomy Additional Past Surgical History / Comment(s): defibrillator Past Anesthesia/Blood Transfusion Reactions: No Reported Reaction Type of Cardiac Device: AICD Device Placement Date:: 2012 Past Psychological History: Anxiety, Depression Smoking Status: Former smoker Past Alcohol Use History: None Reported Past Drug Use History: None Reported - Past Family History Mother Family Medical History: Diabetes Mellitus, Hypertension Father Family Medical History: No Reported History General Exam Limitations: no limitations General appearance: alert, in no apparent distress Head exam: Present: atraumatic, normocephalic, normal inspection Eye exam: Present: normal appearance, PERRL, EOMI. Absent: scleral icterus ENT exam: Present: normal exam, mucous membranes moist Neck exam: Present: normal inspection, full ROM. Absent: tenderness, meningismus, lymphadenopathy Respiratory exam: Present: normal lung sounds bilaterally. Absent: respiratory distress, wheezes, rales, rhonchi, stridor Cardiovascular Exam: Present: regular rate, normal rhythm, normal heart sounds. Absent: systolic murmur, diastolic murmur, rubs, gallop, clicks GI/Abdominal exam: Present: soft, normal bowel sounds. Absent: distended, tenderness, guarding, rebound, rigid Neurological exam: Present: alert Course Vital Signs 03/06/20 03/06/20 03/06/20 15:35 15:56 17:59 Temperature 98.2 F Pulse Rate 122 H 121 H 95 Respiratory 22 20 18 Rate Blood Pressure 153/99 153/88 114/78 O2 Sat by Pulse 99 96 96 Oximetry EKG Findings - EKG Comments: EKG Findings:: ventricular paced rhythm, biventricular pacemaker detected, ventricular rate 105, QRS duration 164, QTc 481 Medical Decision Making - Medical Decision Making Patient is well-appearing. Patient was initially tachycardic in the 120s over this improved. Patient is ventricularly paced. CBC CMP unremarkable. Potassium 5.4 is hemolyzed. Patient does not have any abdominal pain or tenderness. Troponin is negative. Patient was given fluids as well as Zofran and Reglan and has had significant improvement in symptoms. Given nausea associated with diarrhea she likely has gastroenteritis. At this time patient can follow up outpatient with Dr. Mosqueda. She will return here with any worse heriberto symptoms. - Lab Data Result diagrams: 03/06/20 16:24 03/06/20 16:24 Lab Results 03/06/20 03/06/20 03/06/20 Range/Units 16:24 16:24 16:24 WBC 6.6 (3.8-10.6) k/uL RBC 5.04 (3.80-5.40) m/uL Hgb 14.4 (11.4-16.0) gm/dL Hct 42.5 (34.0-46.0) % MCV 84.3 (80.0-100.0) fL MCH 28.5 (25.0-35.0) pg MCHC 33.8 (31.0-37.0) g/dL RDW 14.9 (11.5-15.5) % Plt Count 174 (150-450) k/uL Neutrophils % 67 % Lymphocytes % 23 % Monocytes % 5 % Eosinophils % 4 % Basophils % 1 % Neutrophils # 4.4 (1.3-7.7) k/uL Lymphocytes # 1.5 (1.0-4.8) k/uL Monocytes # 0.3 (0-1.0) k/uL Eosinophils # 0.3 (0-0.7) k/uL Basophils # 0.0 (0-0.2) k/uL Sodium 136 L (137-145) mmol/L Potassium 5.4 H (3.5-5.1) mmol/L Chloride 106 (98-107) mmol/L Carbon Dioxide 23 (22-30) mmol/L Anion Gap 7 mmol/L BUN 12 (7-17) mg/dL Creatinine 0.66 (0.52-1.04) mg/dL Est GFR (CKD-EPI)AfAm >90 (>60 ml/min/1.73 sqM) Est GFR (CKD-EPI)NonAf >90 (>60 ml/min/1.73 sqM) Glucose 93 (74-99) mg/dL Calcium 9.7 (8.4-10.2) mg/dL Total Bilirubin 1.3 (0.2-1.3) mg/dL AST 69 H (14-36) U/L ALT 41 H (4-34) U/L Alkaline Phosphatase 121 (38-126) U/L Troponin I <0.012 (0.000-0.034) ng/mL Total Protein 7.8 (6.3-8.2) g/dL Albumin 4.5 (3.5-5.0) g/dL Amylase 50 (30-110) U/L Lipase 51 (23-300) U/L Disposition Clinical Impression: Nausea, Diarrhea Disposition: HOME SELF-CARE Condition: Good Instructions (If sedation given, give patient instructions): Acute Nausea and Vomiting (ED), Acute Diarrhea (ED) Additional Instructions: please take Zofran as needed for nausea. Drink plenty of fluids. Follow-up with your doctor in one to 2 days. Return to the emergency room for any w orsening symptoms. Prescriptions: Ondansetron [Zofran ODT] 4 mg PO Q8HR PRN #15 tab PRN Reason: Nausea Is patient prescribed a controlled substance at d/c from ED?: No Referrals: Daniel Mosqueda MD [Primary Care Provider] - 1-2 days Time of Disposition: 18:07
[2020-03-06 17:03] LABS: Basophils % (A) 1 %; Eosinophils # (A) 0.3 k/uL (0-0.7); Eosinophils % (A) 4 %; HCT 42.5 % (34.0-46.0); HGB 14.4 gm/dL (11.4-16.0); Lymphocytes # (A) 1.5 k/uL (1.0-4.8); Lymphocytes % (A) 23 %; MCH 28.5 pg (25.0-35.0); MCHC 33.8 g/dL (31.0-37.0); MCV 84.3 fL (80.0-100.0); Mean Platelet Volume 8.6; Monocytes # (A) 0.3 k/uL (0-1.0); Monocytes % (A) 5 %; Neutrophils # (A) 4.4 k/uL (1.3-7.7); Neutrophils % (A) 67 %; Platelet Count 174 k/uL (150-450); RBC 5.04 m/uL (3.80-5.40); RDW 14.9 % (11.5-15.5); WBC 6.6 k/uL (3.8-10.6)
[2020-03-06 17:15] LABS: ALT 41 U/L (4-34); AST 69 U/L (14-36); African American GFR (CKD) >90 (>60 ml/min/1.73 sqM); Albumin 4.5 g/dL (3.5-5.0); Alkaline Phosphatase 121 U/L (38-126); Amylase 50 U/L (30-110); Anion Gap 7 mmol/L; Blood Urea Nitrogen 12 mg/dL (7-17); Calcium 9.7 mg/dL (8.4-10.2); Carbon Dioxide 23 mmol/L (22-30); Chloride 106 mmol/L (98-107); Glucose 93 mg/dL (74-99); Non-African American GFR(CKD) >90 (>60 ml/min/1.73 sqM); Sodium 136 mmol/L (137-145); Total Bilirubin 1.3 mg/dL (0.2-1.3); Total Protein 7.8 g/dL (6.3-8.2)
[2020-03-06 17:16] LABS: Potassium 5.4 mmol/L (3.5-5.1)
[2020-03-06] MEDS ORDERED: diphenhydrAMINE 50 MG/ML 1 ML VIAL IVP STA (17:44)
[2020-03-06] MEDS ORDERED: METOCLOPRAMIDE 5 MG/ML 2 ML VIAL IVP STA (17:44)
[2020-03-06 18:00] VITALS: BP 114/78; PULSE 95; RESP 18
== END 2020-03-06 18:55 | disposition home or self-care (01) ==
LOC: EC 15:33
DX: R11.0 Nausea (principal); R19.7 Diarrhea, unspecified; J44.9 Chronic obstructive pulmonary disease, unspecified; R00.0 Tachycardia, unspecified; F41.9 Anxiety disorder, unspecified; F32.9 Major depressive disorder, single episode, unspecified; I25.2 Old myocardial infarction; Z79.01 Long term (current) use of anticoagulants; Z88.8 Allergy status to other drugs, medicaments and biological substances; Z86.718 Personal history of other venous thrombosis and embolism; Z90.49 Acquired absence of other specified parts of digestive tract; Z87.891 Personal history of nicotine dependence; Z20.828 Contact with and (suspected) exposure to other viral communicable diseases
CPT/HCPCS: 36415; 93005; 80053; 82150; 83690; 84484; 85025; 99284; 96374; 96375 ×4; 96361; U0003; J2060; J1200; J2765; J2405; J1885

== ENCOUNTER 2020-03-10 18:15 | Emergency (ER) | payer MEDICARE ==
[2020-03-10 18:18] VITALS: BP 155/96; RESP 22; TEMP 98.2
[2020-03-10] MEDS ORDERED: SODIUM CHLORIDE 0.9% 1,000 ML IV ONE (19:07)
[2020-03-10] MEDS ORDERED: LIDOCAINE/EPINEPHR/TETRACAINE 5 ML BOTTLE TOPICAL ONE (19:08)
[2020-03-10] MEDS ORDERED: ONDANSETRON 4 MG/2 ML VIAL IVP STA (19:18)
[2020-03-10 19:24] LABS: Basophils # (A) 0.1 k/uL (0-0.2); Basophils % (A) 1 %; Eosinophils # (A) 0.4 k/uL (0-0.7); Eosinophils % (A) 5 %; HGB 14.2 gm/dL (11.4-16.0); Lymphocytes # (A) 1.7 k/uL (1.0-4.8); Lymphocytes % (A) 25 %; MCH 28.3 pg (25.0-35.0); MCHC 33.7 g/dL (31.0-37.0); MCV 83.9 fL (80.0-100.0); Mean Platelet Volume 8.8; Monocytes # (A) 0.3 k/uL (0-1.0); Monocytes % (A) 4 %; Neutrophils # (A) 4.4 k/uL (1.3-7.7); Neutrophils % (A) 63 %; Platelet Count 169 k/uL (150-450); RBC 5.01 m/uL (3.80-5.40); RDW 15.4 % (11.5-15.5); WBC 6.9 k/uL (3.8-10.6)
--- NOTE | 2020-03-10 19:32 | ED ---
Skin/Abscess/FB HPI <Unruly Waite - Last Filed: 03/10/20 19:56> - General Source: patient Mode of arrival: wheelchair Limitations: no limitations <Ana María Jurado - Last Filed: 03/10/20 20:07> - General Chief complaint: Skin/Abscess/Foreign Body Stated complaint: elbow swelling Time Seen by Provider: 03/10/20 18:47 - History of Present Illness Initial comments: 54 yo female with history of cardiomyopathy and pace maker presenting today for chief complaint of left elbow pain. Patient states that she has had left elbow pain and swelling over the past day. Patient states this has made her nause ated, and also endorses diarrhea over the weekend and not sure if that is the cause vs the elbow pain. She admits to chills. Denies abdominal pain, chest pain or SOB. Patient states she is still able to range freely at the left joint there is some tenderness at maximal flexion and extension. Patient admits to redness and states that she did have some dry peeling skin initially. Denies trauma or falls. Denies recording fevers at home. Denies experiencing this in the past. patient has no additional complaints. Upon arrival she appears nontoxic. Afebrile. (Ana María Jurado) - Related Data Home Medications Medication Instructions Recorded Confirmed Warfarin Sodium [Coumadin] 7.5 mg PO SUMOTUTHFRSA 12/06/14 11/13/18 ALPRAZolam [Xanax] 0.25 mg PO TID PRN 07/17/17 11/13/18 Acetaminophen Tab [Tylenol] 1,000 mg PO Q6H PRN 07/17/17 11/13/18 Albuterol Nebulized [Ventolin 2.5 mg INHALATION RT-QID PRN 07/17/17 11/13/18 Nebulized] Albuterol Sulfate [Proventil Hfa] 1 - 2 puff INHALATION RT-Q6H PRN 07/17/17 11/13/18 [place]-3 Fatty Acids/Fish Oil [Fish 1 cap PO DAILY 07/17/17 11/13/18 Oil 1,000 mg Softgel] Warfarin [Coumadin] 5 mg PO WE 07/17/17 11/13/18 traZODone HCL 50 mg PO HS PRN 07/17/17 11/13/18 Previous Rx's Medication Instructions Recorded Meclizine [Antivert] 25 mg PO TID PRN #15 tab 12/15/17 Ondansetron Odt [Zofran ODT] 4 mg PO Q8HR PRN #10 tab 12/15/17 Amiodarone [Cordarone] 100 mg PO DAILY #90 tab 11/15/18 Atorvastatin Calcium [Lipitor] 10 mg PO HS #90 tablet 11/15/18 Spironolactone [Aldactone] 25 mg PO DAILY #90 tab 11/15/18 carvediloL [Coreg] 6.25 mg PO BID-W/MEALS #180 tab 11/15/18 lisinopriL [Zestril] 2.5 mg PO DAILY #90 tab 11/15/18 Ondansetron [Zofran ODT] 4 mg PO Q8HR PRN #15 tab 03/06/20 Cephalexin [Keflex] 500 mg PO Q6HR 7 Days #28 cap 03/10/20 Allergies Allergy/AdvReac Type Severity Reaction Status Date / Time hydromorphone [From Dilaudid] AdvReac Vomiting Verified 03/10/20 18:19 Review of Systems ROS Other: All systems not noted in ROS Statement are negative. <Unruly Waite - Last Filed: 03/10/20 19:56> ROS Other: All systems not noted in ROS Statement are negative. <Ana María Jurado - Last Filed: 03/10/20 20:07> ROS Statement: Those systems with pertinent positive or pertinent negative responses have been documented in the HPI. Past Medical History Past Medical History: COPD, Deep Vein Thrombosis (DVT), Eye Disorder, Hyperlipidemia, Hypertension, Myocardial Infarction ([place]), Pneumonia Additional Past Medical History / Comment(s): cardiomyopathy, DVT ( 4 yrs ago), Last Myocardial Infarction Date:: 4 yrs ago History of Any Multi-Drug Resistant Organisms: None Reported Past Surgical History: AICD, Cholecystectomy Additional Past Surgical History / Comment(s): defibrillator Past Anesthesia/Blood Transfusion Reactions: No Reported Reaction Type of Cardiac Device: AICD Device Placement Date:: 2012 Past Psychological History: Anxiety, Depression Smoking Status: Former smoker, Second hand smoke exposure Past Alcohol Use History: None Reported Past Drug Use History: None Reported - Past Family History Mother Family Medical History: Diabetes Mellitus, Hypertension Father Family Medical History: No Reported History <Ana María Jurado - Last Filed: 03/10/20 20:07> General Exam Limitations: no limitations <Ana María Jurado - Last Filed: 03/10/20 20:07> - General Exam Comments Initial Comments: General: The patient is awake and alert, appears uncomfortable. Eye: Pupils are equal, round and reactive to light, extra-ocular movements are intact. No nystagmus. There is normal conjunctiva bilaterally. No signs of icterus. Ears, nose, mouth and throat: There are moist mucous membranes and no oral lesions. Neck: The neck is supple, there is no tenderness or JVD. Cardiovascular: There is a regular rate and rhythm. No murmur, rub or gallop is appreciated. Respiratory: Lungs are clear to auscultation, respirations are non-labored, breath sounds are equal. No wheezes, stridor, rales, or rhonchi. Musculoskeletal: Upon inspection break in skin at tip of elbow, there is surrounding redness, fluctuance at the tip of the elbow. no diffuse redness of elbow joint. Can fully range at the left elbow joitn without difficulty. Strength 5/5. Sensation intact. Radial pulses equal bilaterally 2+. Neurological: A&O x 3. CN II-XII intact grossly, There are no obvious motor or sensory deficits. Coordination appears grossly intact. Speech is normal. Skin: Skin is warm and dry and no rashes or lesions are noted. Psychiatric: Cooperative, appropriate mood & affect, normal judgment. (Ana María Jurado) Course Vital Signs 03/10/20 18:17 Temperature 98.2 F Pulse Rate 113 H Respiratory 22 Rate Blood Pressure 155/96 O2 Sat by Pulse 99 Oximetry Procedures - Incision & Drainage Consent Obtained: verbal consent, written consent Site: other (Left elbow (olecranon bursa)) Anesthetic Used: lidocaine 1% Amount (mLs): 1 I&D Cleaning Method: Betadine Sterile Field Used?: Yes Needle Aspiration Performed?: Yes (18-gauge) Irrigation Performed?: No I&D Drainage Obtained: Serous Culture Obtained?: Yes Patient Tolerated Procedure: well, no complications <Unruly Waite - Last Filed: 03/10/20 19:56> Medical Decision Making - Lab Data Result diagrams: 03/10/20 19:13 03/10/20 19:13 <Unruly Waite - Last Filed: 03/10/20 19:56> - Lab Data Result diagrams: 03/10/20 19:13 03/10/20 19:13 <Ana María Jurado - Last Filed: 03/10/20 20:07> - Medical Decision Making 54-year-old feel presenting today for chief complaint of left elbow swelling. Patient also under she had some nausea not sure is secondary to the pain but states she is also had associated diarrhea. Denies abdominal pain abdomen soft nontender on physical examination. Patient labs stable. She appears hydrated. Patient elbow bursa fluid straw color, no purulence. Patient has no leukocytosis afebrile does not appear toxic after discussing the case attending provider Dr. Waite who evaluated patient, he is agreeable to discharge with prophylactic take antibiotics, pressure dressing and sling for comfort Patient is to f/u with pcp in nexxt 24-48 hours. (Ana María Jurado) - Lab Data Lab Results 03/10/20 03/10/20 03/10/20 Range/Units 19:13 19:13 19:13 WBC 6.9 (3.8-10.6) k/uL RBC 5.01 (3.80-5.40) m/uL Hgb 14.2 (11.4-16.0) gm/dL Hct 42.0 (34.0-46.0) % MCV 83.9 (80.0-100.0) fL MCH 28.3 (25.0-35.0) pg MCHC 33.7 (31.0-37.0) g/dL RDW 15.4 (11.5-15.5) % Plt Count 169 (150-450) k/uL Neutrophils % 63 % Lymphocytes % 25 % Monocytes % 4 % Eosinophils % 5 % Basophils % 1 % Neutrophils # 4.4 (1.3-7.7) k/uL Lymphocytes # 1.7 (1.0-4.8) k/uL Monocytes # 0.3 (0-1.0) k/uL Eosinophils # 0.4 (0-0.7) k/uL Basophils # 0.1 (0-0.2) k/uL Sodium 138 (137-145) mmol/L Potassium 3.9 (3.5-5.1) mmol/L Chloride 105 (98-107) mmol/L Carbon Dioxide 26 (22-30) mmol/L Anion Gap 7 mmol/L BUN 12 (7-17) mg/dL Creatinine 0.84 (0.52-1.04) mg/dL Est GFR (CKD-EPI)AfAm >90 (>60 ml/min/1.73 sqM) Est GFR (CKD-EPI)NonAf 78 (>60 ml/min/1.73 sqM) Glucose 91 (74-99) mg/dL Plasma Lactic Acid Carlos Eduardo 1.1 (0.7-2.0) mmol/L Calcium 9.4 (8.4-10.2) mg/dL Total Bilirubin 0.6 (0.2-1.3) mg/dL AST 36 (14-36) U/L ALT 35 H (4-34) U/L Alkaline Phosphatase 108 (38-126) U/L Total Protein 7.1 (6.3-8.2) g/dL Albumin 4.2 (3.5-5.0) g/dL Disposition <Unruly Waite - Last Filed: 03/10/20 19:56> Is patient prescribed a controlled substance at d/c from ED?: No Time of Disposition: 19:49 <Ana María Jurado - Last Filed: 03/10/20 20:07> Clinical Impression: Elbow swelling, Elbow pain, Redness and swelling of elbow, Bursitis, Diarrhea, Nausea Disposition: HOME SELF-CARE Condition: Good Instructions (If sedation given, give patient instructions): Elbow Bursitis (ED) Additional Instructions: Please use medication as discussed. Please follow-up with family doctor in the next 2 days. Please return to emergency room if the symptoms increase or worsen or for any other concerns. Prescriptions: Cephalexin [Keflex] 500 mg PO Q6HR 7 Days #28 cap Referrals: Daniel Mosqueda MD [Primary Care Provider] - 1-2 days Kaleb Guerrero DO [Medical Doctor] - 1-2 days
[2020-03-10 19:36] LABS: ALT 35 U/L (4-34); AST 36 U/L (14-36); African American GFR (CKD) >90 (>60 ml/min/1.73 sqM); Albumin 4.2 g/dL (3.5-5.0); Alkaline Phosphatase 108 U/L (38-126); Anion Gap 7 mmol/L; Blood Urea Nitrogen 12 mg/dL (7-17); Calcium 9.4 mg/dL (8.4-10.2); Carbon Dioxide 26 mmol/L (22-30); Chloride 105 mmol/L (98-107); Glucose 91 mg/dL (74-99); Non-African American GFR(CKD) 78 (>60 ml/min/1.73 sqM); Potassium 3.9 mmol/L (3.5-5.1); Sodium 138 mmol/L (137-145); Total Bilirubin 0.6 mg/dL (0.2-1.3); Total Protein 7.1 g/dL (6.3-8.2)
[2020-03-10] MEDS ORDERED: CEPHALEXIN 500MG STARTER PACK 4 CAP BTL PO STA (19:48)
[2020-03-10 21:31] LABS: Appearance,BF Hazy; Color,BF Yellow; Nucleated Cells, Body Fluid 730 /uL; RBC, Body Fluid 2675 /uL
[2020-03-10 21:32] LABS: Mononuclear WBC,Body Fluid 10 %; Polynuclear WBC,Body Fluid 90 %; Total Cells Counted,Body Fluid 100
[2020-03-11 00:43] VITALS: PULSE 96
== END 2020-03-10 20:10 | disposition home or self-care (01) ==
LOC: EC 18:15
DX: M70.22 Olecranon bursitis, left elbow (principal); R11.0 Nausea; R19.7 Diarrhea, unspecified; F41.9 Anxiety disorder, unspecified; F32.9 Major depressive disorder, single episode, unspecified; J44.9 Chronic obstructive pulmonary disease, unspecified; I25.2 Old myocardial infarction; Z79.01 Long term (current) use of anticoagulants; Z88.5 Allergy status to narcotic agent; Z77.22 Contact with and (suspected) exposure to environmental tobacco smoke (acute) (chronic); Z86.718 Personal history of other venous thrombosis and embolism; Z87.891 Personal history of nicotine dependence; Z95.810 Presence of automatic (implantable) cardiac defibrillator
CPT/HCPCS: 36415; 80053; 89050; 83605; 85025; 87040; 87070; 87205; 99283; 96374; 96361; 10060; J2405

== ENCOUNTER 2020-04-07 12:36 | Observation (INO) | payer MEDICARE ==
[2020-04-07] MEDS ORDERED: ASPIRIN 81 MG PO STA (12:49)
[2020-04-07] MEDS ORDERED: NITROGLYCERIN OINT 1 INCH/GM PACKET TOPICAL STA (12:49)
[2020-04-07] MEDS ORDERED: LORazepam 2 MG/ML INJ IV STA ×2 (12:50→15:10)
--- NOTE | 2020-04-07 12:53 | ED ---
General Adult HPI - General Chief complaint: Chest Pain Stated complaint: Chest Pain Time Seen by Provider: 04/07/20 12:41 Source: patient, RN notes reviewed Mode of arrival: wheelchair Limitations: no limitations - History of Present Illness Initial comments: Patient is a pleasant 54-year-old female presenting to the emergency Department with chest discomfort. Onset of symptoms was prior to arrival. Patient took one nitroglycerin with improvement of symptoms. Discomfort is now 2 or 3/10. Discomfort feels like an ache on the left chest. No radiation. No dyspnea. No nausea. Patient was sweaty earlier. no Leg pain or leg swelling. - Related Data Home Medications Medication Instructions Recorded Confirmed Warfarin Sodium [Coumadin] 7.5 mg PO SUMOTUTHFRSA 12/06/14 11/13/18 ALPRAZolam [Xanax] 0.25 mg PO TID PRN 07/17/17 11/13/18 Acetaminophen Tab [Tylenol] 1,000 mg PO Q6H PRN 07/17/17 11/13/18 Albuterol Nebulized [Ventolin 2.5 mg INHALATION RT-QID PRN 07/17/17 11/13/18 Nebulized] Albuterol Sulfate [Proventil Hfa] 1 - 2 puff INHALATION RT-Q6H PRN 07/17/17 11/13/18 [place]-3 Fatty Acids/Fish Oil [Fish 1 cap PO DAILY 07/17/17 11/13/18 Oil 1,000 mg Softgel] Warfarin [Coumadin] 5 mg PO WE 07/17/17 11/13/18 traZODone HCL 50 mg PO HS PRN 07/17/17 11/13/18 Previous Rx's Medication Instructions Recorded Meclizine [Antivert] 25 mg PO TID PRN #15 tab 12/15/17 Ondansetron Odt [Zofran ODT] 4 mg PO Q8HR PRN #10 tab 12/15/17 Amiodarone [Cordarone] 100 mg PO DAILY #90 tab 11/15/18 Atorvastatin Calcium [Lipitor] 10 mg PO HS #90 tablet 11/15/18 Spironolactone [Aldactone] 25 mg PO DAILY #90 tab 11/15/18 carvediloL [Coreg] 6.25 mg PO BID-W/MEALS #180 tab 11/15/18 lisinopriL [Zestril] 2.5 mg PO DAILY #90 tab 11/15/18 Ondansetron [Zofran ODT] 4 mg PO Q8HR PRN #15 tab 03/06/20 Cephalexin [Keflex] 500 mg PO Q6HR 7 Days #28 cap 03/10/20 Allergies Allergy/AdvReac Type Severity Reaction Status Date / Time hydromorphone [From Dilaudid] AdvReac Vomiting Verified 03/10/20 18:19 Review of Systems ROS Statement: Those systems with pertinent positive or pertinent negative responses have been documented in the HPI. ROS Other: All systems not noted in ROS Statement are negative. Constitutional: Denies: fever Eyes: Denies: eye pain ENT: Denies: ear pain Respiratory: Denies: dyspnea Cardiovascular: Reports: as per HPI, chest pain Endocrine: Denies: fatigue Gastrointestinal: Denies: abdominal pain Genitourinary: Denies: dysuria Musculoskeletal: Denies: back pain Skin: Denies: rash Neurological: Denies: weakness Past Medical History Past Medical History: COPD, Deep Vein Thrombosis (DVT), Eye Disorder, Hyperlipidemia, Hypertension, Myocardial Infarction ([place]), Pneumonia Additional Past Medical History / Comment(s): cardiomyopathy, DVT ( 4 yrs ago), Last Myocardial Infarction Date:: 4 yrs ago History of Any Multi-Drug Resistant Organisms: None Reported Past Surgical History: AICD, Cholecystectomy Additional Past Surgical History / Comment(s): defibrillator Past Anesthesia/Blood Transfusion Reactions: No Reported Reaction Type of Cardiac Device: AICD Device Placement Date:: 2012 Past Psychological History: Anxiety, Depression Smoking Status: Former smoker, Second hand smoke exposure Past Alcohol Use History: None Reported Past Drug Use History: None Reported - Past Family History Mother Family Medical History: Diabetes Mellitus, Hypertension Father Family Medical History: No Reported History General Exam Limitations: no limitations General appearance: alert, in no apparent distress Head exam: Present: normocephalic Eye exam: Present: normal appearance Neck exam: Present: normal inspection Respiratory exam: Present: normal lung sounds bilaterally. Absent: chest wall tenderness Cardiovascular Exam: Present: tachycardia, normal heart sounds Expanded Peripheral pulses: 2+: Radial (R), Radial (L), Posterior Tibialis (R), Posterior Tibialis (L) GI/Abdominal exam: Present: soft. Absent: tenderness Extremities exam: Present: normal inspection. Absent: pedal edema, calf tenderness Neurological exam: Present: alert Psychiatric exam: Present: normal affect, normal mood Skin exam: Present: normal color Course Vital Signs 04/07/20 04/07/20 12:42 13:46 Temperature 98.3 F Pulse Rate 20 L 92 Respiratory 118 H 18 Rate Blood Pressure 160/121 135/90 O2 Sat by Pulse 97 98 Oximetry EKG Findings - EKG Comments: EKG Findings:: Paced rhythm with rate of 103. QRS 164. QT 416. QTC 554. Superior axis. Wide-complex QRS. No acute ST change. Medical Decision Making - Medical Decision Making Patient reevaluated and resting comfortably in bed, symptom-free. Patient updated on results and plan. Case was discussed with Dr. Mosqueda who is familiar with this patient and will admit with consult for cardiology. - Lab Data Result diagrams: 04/07/20 12:50 04/07/20 12:50 Lab Results 04/07/20 04/07/20 04/07/20 Range/Units 12:50 12:50 12:50 WBC 8.4 (3.8-10.6) k/uL RBC 5.59 H (3.80-5.40) m/uL Hgb 16.2 H (11.4-16.0) gm/dL Hct 47.2 H (34.0-46.0) % MCV 84.4 (80.0-100.0) fL MCH 29.0 (25.0-35.0) pg MCHC 34.3 (31.0-37.0) g/dL RDW 15.1 (11.5-15.5) % Plt Count 163 (150-450) k/uL Neutrophils % 61 % Lymphocytes % 21 % Monocytes % 13 % Eosinophils % 3 % Basophils % 1 % Neutrophils # 5.1 (1.3-7.7) k/uL Lymphocytes # 1.8 (1.0-4.8) k/uL Monocytes # 1.1 H (0-1.0) k/uL Eosinophils # 0.3 (0-0.7) k/uL Basophils # 0.1 (0-0.2) k/uL PT 9.9 (9.0-12.0) sec INR 0.9 (<1.2) APTT 22.8 (22.0-30.0) sec Sodium 138 (137-145) mmol/L Potassium 4.2 (3.5-5.1) mmol/L Chloride 105 (98-107) mmol/L Carbon Dioxide 26 (22-30) mmol/L Anion Gap 7 mmol/L BUN 12 (7-17) mg/dL Creatinine 0.75 (0.52-1.04) mg/dL Est GFR (CKD-EPI)AfAm >90 (>60 ml/min/1.73 sqM) Est GFR (CKD-EPI)NonAf >90 (>60 ml/min/1.73 sqM) Glucose 103 H (74-99) mg/dL Calcium 9.5 (8.4-10.2) mg/dL Magnesium 2.0 (1.6-2.3) mg/dL Total Bilirubin 0.7 (0.2-1.3) mg/dL AST 40 H (14-36) U/L ALT 37 H (4-34) U/L Alkaline Phosphatase 125 (38-126) U/L Troponin I (0.000-0.034) ng/mL Total Protein 7.5 (6.3-8.2) g/dL Albumin 4.5 (3.5-5.0) g/dL 04/07/20 Range/Units 12:50 WBC (3.8-10.6) k/uL RBC (3.80-5.40) m/uL Hgb (11.4-16.0) gm/dL Hct (34.0-46.0) % MCV (80.0-100.0) fL MCH (25.0-35.0) pg MCHC (31.0-37.0) g/dL RDW (11.5-15.5) % Plt Count (150-450) k/uL Neutrophils % % Lymphocytes % % Monocytes % % Eosinophils % % Basophils % % Neutrophils # (1.3-7.7) k/uL Lymphocytes # (1.0-4.8) k/uL Monocytes # (0-1.0) k/uL Eosinophils # (0-0.7) k/uL Basophils # (0-0.2) k/uL PT (9.0-12.0) sec INR (<1.2) APTT (22.0-30.0) sec Sodium (137-145) mmol/L Potassium (3.5-5.1) mmol/L Chloride (98-107) mmol/L Carbon Dioxide (22-30) mmol/L Anion Gap mmol/L BUN (7-17) mg/dL Creatinine (0.52-1.04) mg/dL Est GFR (CKD-EPI)AfAm (>60 ml/min/1.73 sqM) Est GFR (CKD-EPI)NonAf (>60 ml/min/1.73 sqM) Glucose (74-99) mg/dL Calcium (8.4-10.2) mg/dL Magnesium (1.6-2.3) mg/dL Total Bilirubin (0.2-1.3) mg/dL AST (14-36) U/L ALT (4-34) U/L Alkaline Phosphatase (38-126) U/L Troponin I <0.012 (0.000-0.034) ng/mL Total Protein (6.3-8.2) g/dL Albumin (3.5-5.0) g/dL - Radiology Data Radiology results: image reviewed (Chest x-ray shows no acute process) Disposition Clinical Impression: Chest pain Disposition: ADMITTED IP TO THIS HOSP Is patient prescribed a controlled substance at d/c from ED?: No Referrals: Daniel Mosqueda MD [Primary Care Provider] - 1-2 days Decision Time: 14:39
--- NOTE | 2020-04-07 13:33 | XR ---
EXAMINATION TYPE: XR chest 2V DATE OF EXAM: 04/07/2020 COMPARISON: Prior chest x-ray 11/13/2018 HISTORY: Chest pain TECHNIQUE: Frontal and lateral views of the chest are obtained. FINDINGS: There is no focal air space opacity, pleural effusion, or pneumothorax seen. The cardiac silhouette size is within normal limits. Intracardiac defibrillator leads and generator are stable. The osseous structures are intact. IMPRESSION: No acute cardiopulmonary process.
[2020-04-07 13:37] LABS: ALT 37 U/L (4-34); AST 40 U/L (14-36); African American GFR (CKD) >90 (>60 ml/min/1.73 sqM); Albumin 4.5 g/dL (3.5-5.0); Alkaline Phosphatase 125 U/L (38-126); Anion Gap 7 mmol/L; Blood Urea Nitrogen 12 mg/dL (7-17); Calcium 9.5 mg/dL (8.4-10.2); Carbon Dioxide 26 mmol/L (22-30); Chloride 105 mmol/L (98-107); Glucose 103 mg/dL (74-99); Non-African American GFR(CKD) >90 (>60 ml/min/1.73 sqM); Potassium 4.2 mmol/L (3.5-5.1); Sodium 138 mmol/L (137-145); Total Bilirubin 0.7 mg/dL (0.2-1.3); Total Protein 7.5 g/dL (6.3-8.2)
[2020-04-07 13:38] LABS: INR 0.9 (<1.2); Partial Thromboplastin Time 22.8 sec (22.0-30.0); Prothrombin Time 9.9 sec (9.0-12.0)
[2020-04-07 13:44] LABS: Basophils # (A) 0.1 k/uL (0-0.2); Basophils % (A) 1 %; Eosinophils # (A) 0.3 k/uL (0-0.7); Eosinophils % (A) 3 %; HCT 47.2 % (34.0-46.0); HGB 16.2 gm/dL (11.4-16.0); Lymphocytes # (A) 1.8 k/uL (1.0-4.8); Lymphocytes % (A) 21 %; MCHC 34.3 g/dL (31.0-37.0); MCV 84.4 fL (80.0-100.0); Monocytes # (A) 1.1 k/uL (0-1.0); Monocytes % (A) 13 %; Neutrophils # (A) 5.1 k/uL (1.3-7.7); Neutrophils % (A) 61 %; Platelet Count 163 k/uL (150-450); RBC 5.59 m/uL (3.80-5.40); RDW 15.1 % (11.5-15.5); WBC 8.4 k/uL (3.8-10.6)
[2020-04-07] MEDS ORDERED: NITROGLYCERIN SL TABS 0.4 MG TAB SUBLINGUAL PRN (14:39)
[2020-04-07] MEDS: NITROGLYCERIN OINT 1 INCH/GM PACKET TOPICAL SCH (18:01)
[2020-04-07] MEDS ORDERED: MECLIZINE 25 MG TAB PO PRN (18:17)
[2020-04-07] MEDS: AMIODARONE 200 MG TAB PO SCH (18:53)
[2020-04-07] MEDS: carvediloL 6.25 MG TAB PO SCH (18:53)
[2020-04-07] MEDS ORDERED: IPRATROPIUM-ALBUTEROL 3 ML NEB INHALATION PRN (19:05)
[2020-04-07] MEDS ORDERED: WARFARIN 5 MG TAB PO ONE (20:00)
[2020-04-07] MEDS ORDERED: WARFARIN 5 MG TAB PO SCH (20:00)
[2020-04-07] MEDS: BUTALB/APAP/CAFF 50-325-40MG TAB PO PRN (20:32)
[2020-04-07] MEDS: IPRATROPIUM-ALBUTEROL 3 ML NEB INHALATION SCH (20:40)
[2020-04-07] MEDS ORDERED: ATORVASTATIN 10 MG TAB PO SCH (21:00)
[2020-04-07] MEDS ORDERED: traZODone HCL 50 MG TAB PO SCH (21:00)
[2020-04-08] MEDS: NITROGLYCERIN OINT 1 INCH/GM PACKET TOPICAL SCH ×2 (01:07→06:32)
[2020-04-08 04:07] LABS: Prothrombin Time 10.6 sec (9.0-12.0)
[2020-04-08 04:12] LABS: Cholesterol 243 mg/dL (<200); HDL Cholesterol 20 mg/dL (40-60)
[2020-04-08 04:31] LABS: Triglycerides 572 mg/dL (<150)
[2020-04-08] MEDS: BUTALB/APAP/CAFF 50-325-40MG TAB PO PRN (06:31)
[2020-04-08] MEDS: carvediloL 6.25 MG TAB PO SCH (06:31)
[2020-04-08] MEDS: IPRATROPIUM-ALBUTEROL 3 ML NEB INHALATION SCH ×3 (07:19→15:31)
[2020-04-08] MEDS: AMIODARONE 200 MG TAB PO SCH (07:48)
[2020-04-08] MEDS: ALPRAZolam 0.25 MG TAB PO PRN ×2 (07:55→15:20)
[2020-04-08 08:52] VITALS: RESP 16
[2020-04-08] MEDS ORDERED: ASPIRIN 325 MG TAB PO SCH (09:00)
[2020-04-08] MEDS ORDERED: SPIRONOLACTONE 25 MG TAB PO SCH ×2 (09:00→21:00)
[2020-04-08] MEDS ORDERED: ATORVASTATIN 40 MG TAB PO SCH (09:15)
--- NOTE | 2020-04-08 11:14 | P.CRDCN ---
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 fib arrest, history of PE, hypertension, dyslipidemia, COPD and former nicotine dependence. She follows in the office with []. We have been asked to see in consultation for Dr. Reece, although she has not been to the office since 2017. She is very tearful and states she wants to come to the office but she just cannot afford the office visits. She follows with her PCP and also has trouble paying his office for visits. Unfortunately, she has been out of her medications for the past 1-month due to the costs of going to the office for her refills. She states yesterday she felt a dull ache in her chest most of the day. It did not radiate to her back, arm, neck or jaw. She denies associated shortness of breath, dizziness or palpitations. DIAGNOSTICS EKG reveals ventricular paced rhythm with underlying left bundle branch block. Chest xray negative for an acute cardiopulmonary process. Laboratory reviewed, WBC 8.4, hemoglobin 16.2, platelets 163, d-dimer 0.49, INR 1.0, sodium 138, potassium 4.2, creatinine 0.75, magnesium 2.0, cardiac enzymes negative 3, total cholesterol 243 triglycerides 572. Current cardiac medications include amiodarone 100 mg daily, Coumadin, atorvastatin 10 mg daily, Aldactone 25 mg daily, lisinopril 2.5 mg daily and carvedilol 6.25 mg twice a day. Most recent echocardiogram obtained October 2018 revealed severely impaired LV s ystolic function with ejection fraction 20-25%, severely dilated left ventricle, mild MR and mild TR. REVIEW OF SYSTEMS At the time of my exam: CONSTITUTIONAL: Denies fever or chills. CARDIOVASCULAR: Denies chest pain, shortness of breath, orthopnea, PND or palpitations. RESPIRATORY: Denies cough. GASTROINTESTINAL: Denies abdominal pain, diarrhea, constipation, nausea or vomiting. MUSCULOSKELETAL: Denies myalgias. NEUROLOGIC: Denies numbness, tingling or weakness. ENDOCRINE: Denies fatigue, weight change, polydipsia or polyurina. GENITOURINARY: Denies burning, hematuria or urgency with micturation. HEMATOLOGIC: Denies history of anemia or bleeding. PHYSICAL EXAMINATION Blood pressure 101/64 heart rate 85 afebrile and maintaining oxygen saturation on room air. CONSTITUTIONAL: No apparent distress. HEENT: Head is normocephalic. Pupils are equal, round. Sclerae anicteric. Mucous membranes of the mouth are moist. No JVD. No carotid bruit. CHEST EXAMINATION: Lungs are clear to auscultation. No chest wall tenderness is noted on palpation or with deep breathing. HEART EXAMINATION: Regular rate and rhythm. S1, S2 heard. No murmurs, gallops or rub. ABDOMEN: Soft, nontender. Positive bowel sounds. EXTREMITIES: 2+ peripheral pulses, no lower extremity edema and no calf tenderness. NEUROLOGIC EXAMINATION: Patient is awake, alert and oriented x3. ASSESSMENT Chest pain, atypical for angina. An acute coronary event has been ruled out. Nonischemic dilated cardiomyopathy status post AICD Chronic systolic heart failure, clinically euvolemic History of V. fib arrest History of PE Hypertension Dyslipidemia COPD Former nicotine dependence Noncompliance PLAN Obtain 2-D echocardiogram and Doppler study to assess cardiac structure and function. Increase atorvastatin to 40 mg daily. Interrogate AICD. We will ask social work and case management to discuss insurance with the halie t. Thank you kindly for this consultation. Nurse Practitioner note has been reviewed, I agree with a documented findings and plan of care. Patient was seen and examined. Past Medical History Past Medical History: COPD, Deep Vein Thrombosis (DVT), Hyperlipidemia, Hypertension, Myocardial Infarction ([place]), Pneumonia Additional Past Medical History / Comment(s): cardiomyopathy, DVT ( 4 yrs ago), Last Myocardial Infarction Date:: 4 yrs ago History of Any Multi-Drug Resistant Organisms: None Reported Past Surgical History: AICD, Cholecystectomy Additional Past Surgical History / Comment(s): defibrillator Past Anesthesia/Blood Transfusion Reactions: No Reported Reaction Type of Cardiac Device: AICD Device Placement Date:: 2012 Smoking Status: Former smoker - Past Family History Mother Family Medical History: Diabetes Mellitus, Hypertension Father Family Medical History: No Reported History Medications and Allergies Home Medications Medication Instructions Recorded Confirmed Type Warfarin Sodium [Coumadin] 7.5 mg PO SUMOTUTHFRSA@199912/06/14 04/07/20 History ALPRAZolam [Xanax] 0.25 mg PO TID PRN 07/17/17 04/07/20 History [place]-3 Fatty Acids/Fish Oil [Fish 1 cap PO DAILY 07/17/17 04/07/20 History Oil 1,000 mg Softgel] Warfarin [Coumadin] 5 mg PO WE@199907/17/17 04/07/20 History traZODone HCL 50 mg PO HS 07/17/17 04/07/20 History Meclizine [Antivert] 25 mg PO TID PRN #15 tab 12/15/17 04/07/20 Rx Amiodarone [Cordarone] 100 mg PO DAILY #90 tab 11/15/18 04/07/20 Rx Atorvastatin Calcium [Lipitor] 10 mg PO HS #90 tablet 11/15/18 04/07/20 Rx Spironolactone [Aldactone] 25 mg PO DAILY #90 tab 11/15/18 04/07/20 Rx carvediloL [Coreg] 6.25 mg PO BID-W/MEALS #180 tab 11/15/18 04/07/20 Rx lisinopriL [Zestril] 2.5 mg PO DAILY #90 tab 11/15/18 04/07/20 Rx Albuterol Sulfate [Albuterol 2 puff PO RT-Q6H PRN 04/07/20 04/07/20 History Sulfate Hfa] Allergies Allergy/AdvReac Type Severity Reaction Status Date / Time hydromorphone [From Dilaudid] AdvReac Vomiting Verified 04/07/20 15:00 Physical Exam Vitals: Vital Signs Temp Pulse Pulse Pulse Resp BP BP 04/08/20 08:52 81 16 04/08/20 07:45 97.9 F 81 16 101/64 04/08/20 07:30 88 04/08/20 07:19 91 04/08/20 03:40 97.9 F 92 18 131/85 04/07/20 20:51 72 04/07/20 20:40 76 04/07/20 20:25 98.3 F 54 L 18 126/83 04/07/20 15:53 97.6 F 94 16 124/83 04/07/20 15:19 89 18 138/88 04/07/20 15:00 97.6 F 94 16 124/83 04/07/20 13:46 92 18 135/90 04/07/20 12:42 98.3 F 20 L 118 H 160/121 Pulse Ox 04/08/20 08:52 04/08/20 07:45 91 L 04/08/20 07:30 04/08/20 07:19 95 04/08/20 03:40 94 L 04/07/20 20:51 04/07/20 20:40 04/07/20 20:25 94 L 04/07/20 15:53 94 L 04/07/20 15:19 98 04/07/20 15:00 94 L 04/07/20 13:46 98 04/07/20 12:42 97 Intake and Output 04/07/20 04/08/20 04/08/20 22:59 06:59 14:59 Other: Voiding Method Toilet Toilet Toilet # Voids 3 1 Weight 90.718 kg Results 04/07/20 12:50 04/07/20 12:50 Cardiac Enzymes 04/07/20 04/07/20 04/07/20 Range/Units 12:50 12:50 16:23 AST 40 H (14-36) U/L Troponin I <0.012 <0.012 (0.000-0.034) ng/mL 04/07/20 Range/Units 19:03 AST (14-36) U/L Troponin I <0.012 (0.000-0.034) ng/mL Coagulation 04/07/20 04/08/20 Range/Units 12:50 02:52 PT 9.9 10.6 (9.0-12.0) sec APTT 22.8 (22.0-30.0) sec Lipids 04/08/20 Range/Units 02:52 Triglycerides 572 H (<150) mg/dL Cholesterol 243 H (<200) mg/dL HDL Cholesterol 20 L (40-60) mg/dL CBC 04/07/20 Range/Units 12:50 WBC 8.4 (3.8-10.6) k/uL RBC 5.59 H (3.80-5.40) m/uL Hgb 16.2 H (11.4-16.0) gm/dL Hct 47.2 H (34.0-46.0) % Plt Count 163 (150-450) k/uL Comprehensive Metabolic Panel 04/07/20 Range/Units 12:50 Sodium 138 (137-145) mmol/L Potassium 4.2 (3.5-5.1) mmol/L Chloride 105 (98-107) mmol/L Carbon Dioxide 26 (22-30) mmol/L BUN 12 (7-17) mg/dL Creatinine 0.75 (0.52-1.04) mg/dL Glucose 103 H (74-99) mg/dL Calcium 9.5 (8.4-10.2) mg/dL AST 40 H (14-36) U/L ALT 37 H (4-34) U/L Alkaline Phosphatase 125 (38-126) U/L Total Protein 7.5 (6.3-8.2) g/dL Albumin 4.5 (3.5-5.0) g/dL Current Medications Generic Name Dose Route Start Last Admin Trade Name Freq PRN Reason Stop Dose Admin Acetaminophen/Butalbital/Caffeine 2 each 04/07/20 19:10 04/08/20 06:31 Butalb/Apap/Caff 50-325-40mg Tab PO 2 each Q4HR PRN Administration Headache Albuterol/Ipratropium 3 ml 04/07/20 20:00 04/08/20 07:19 Ipratropium-Albuterol 3 Ml Neb INHALATION 3 ml RT-QID DUNCAN Administration Albuterol/Ipratropium 3 ml 04/07/20 19:05 Ipratropium-Albuterol 3 Ml Neb INHALATION RT-QID PRN Shortness of breath, wheezing Alprazolam 0.25 mg 04/07/20 18:17 04/08/20 07:55 Alprazolam 0.25 Mg Tab PO 0.25 mg TID PRN Administration Anxiety Amiodarone HCl 100 mg 04/07/20 18:30 04/08/20 07:48 Amiodarone 200 Mg Tab PO 100 mg DAILY DUNCAN Administration Atorvastatin Calcium 40 mg 04/08/20 09:15 Atorvastatin 40 Mg Tab PO DAILY DUNCAN Carvedilol 6.25 mg 04/07/20 18:30 04/08/20 06:31 Carvedilol 6.25 Mg Tab PO 6.25 mg BID-W/MEALS DUNCAN Administration Lisinopril 2.5 mg 04/08/20 09:00 04/08/20 07:48 Lisinopril 2.5 Mg Tab PO 2.5 mg DAILY DUNCAN Administration Meclizine HCl 25 mg 04/07/20 18:17 Meclizine 25 Mg Tab PO TID PRN Vertigo Miscellaneous Information 0 each 04/07/20 20:00 Warfarin Per Pharmacy MISCELLANE DIRECTED PRN anticoag Nitroglycerin 0.4 mg 04/07/20 14:39 Nitroglycerin Sl Tabs 0.4 Mg Tab SUBLINGUAL Q5M PRN Chest Pain Sodium Chloride 10 ml 04/07/20 21:00 04/08/20 07:49 Sodium Chloride 0.9% Flush 10 Ml Syringe IV 10 ml BID DUNCAN Administration Spironolactone 25 mg 04/08/20 21:00 Spironolactone 25 Mg Tab PO HS DUNCAN Trazodone HCl 50 mg 04/07/20 21:00 04/07/20 20:33 Trazodone Hcl 50 Mg Tab PO 50 mg HS DUNCAN Administration Warfarin Sodium 7.5 mg 04/08/20 18:00 Warfarin 7.5 Mg Tab PO 04/08/20 18:01 ONCE@1800 ONE Protocol Intake and Output 04/07/20 04/08/20 04/08/20 22:59 06:59 14:59 Other: Voiding Method Toilet Toilet Toilet # Voids 3 1 Weight 90.718 kg 04/07/20 12:50 04/07/20 12:50
[2020-04-08 16:32] VITALS: BP 98/66; PULSE 86; TEMP 98.1
[2020-04-08] MEDS ORDERED: WARFARIN 7.5 MG TAB PO ONE (18:00)
--- NOTE | 2020-04-08 18:01 | HP ---
HISTORY AND PHYSICAL CHIEF COMPLAINT: Chest pain. HISTORY OF PRESENT ILLNESS: This is another admission for this 54-year-old white female who has a history of cardiac disease and has a pacemaker. She rarely comes to the office. She started to have chest pain which she described as a dull pain in the anterior chest. There was no diaphoresis or shortness of breath. She felt slightly nauseated. She had no radiation of the pain in the jaw, arms, back, etc. Studies in the ER were negative and she was admitted for observation. REVIEW OF SYSTEMS: She has had no syncope, neurologic problems, change in vision or hearing, abdominal pain, hematemesis, melena, hematochezia, jaundice, hepatitis, cirrhosis, renal failure, hematuria, frequency, urgency, dysuria, incontinence, etc. Past medical history, family history, and personal and social histories reveal that she is ALLERGIC TO DILAUDID, which makes her vomit. MEDICATIONS: Medications when she was last seen include: 1. Lisinopril 2.5 once a day. 2. Atorvastatin 10 once a day. 3. Spironolactone 25 once a day. 4. Jantoven 7.5 mg once a day. 5. Carvedilol 6.25 twice a day. 6. Percocet 5 q.6 p.r.n. 7. Xanax 0.5 t.i.d. p.r.n. 8. Trazodone 50 mg at bedtime p.r.n. 9. Amiodarone 200 mg once a day. 10.Ventolin HFA. 11.Advair 500/50 one puff twice a day. Her past history includes cardiomyopathy, possibly related to a viral infection. She had a myocardial infarction in 2016 when a pacemaker was placed. She has also a history of a pulmonary embolism. She has had 4 pregnancies and 4 children. She has had a cholecystectomy and as well. She does smoke. She does not drink. PHYSICAL EXAMINATION: Blood pressure is 165/95 with a pulse of 86, respirations of 36, and she is afebrile. In general she was very anxious. Skin color was normal. Skin was warm and dry. Face was flushed. Head, ears, eyes, nose, mouth and throat were normal and carotids were normal. The chest was clear. Cardiac exam demonstrated a grade 2/6 systolic murmur. Abdomen was soft and nontender without any visceromegaly or masses. Bowel sounds were present. Extremities were normal. Neurologically she was intact. She is admitted to the hospital with the diagnoses: 1. Chest pain. 2. History of coronary artery disease. 3. History of pulmonary embolism. 4. History of hypertension. 5. History of cardiomyopathy. PLAN: 1. Bed rest. 2. IV fluids. 3. Serial EKGs and enzymes. 4. Cardiology consult. MMAZUCENAL / SAKINA: [id number] /
--- NOTE | 2020-04-08 18:15 | DS ---
DISCHARGE SUMMARY CHIEF COMPLAINT: Chest pain. HISTORY OF PRESENT ILLNESS AND PHYSICAL EXAMINATION: Details of this lady's history and physical can be found in the initial workup. LABORATORY STUDIES: While she was in the hospital she had laboratory studies, details of which can be found in the laboratory section of her chart. COURSE IN THE HOSPITAL: After admission she was placed on bedrest, started on intravenous fluids and had serial EKGs and enzymes which were normal. She was seen by Cardiology, and after her evaluation it was felt that she could go home on her usual activity, diet and medications. Her Lipitor dose was increased. She will be seen in the office in several days. FINAL DIAGNOSES: 1. Atypical chest pain. 2. History of cardiomyopathy. 3. History of myocardial infarction. 4. History of an arrhythmia with pacemaker. OPERATIONS: None. CONSULTATION: Cardiology. She is improved. NEERAJ / SAKINA: [id number] /
--- NOTE | 2020-04-08 18:44 | ECHOF ---
Referral Reason:cp MEASUREMENTS -------- HEIGHT: 172.7 cm WEIGHT: 90.7 kg BP: 131/85 IVSd: 2.3 cm (0.6 - 1.1) LVIDd: 4.9 cm (3.9 - 5.3) LVPWd: 1.5 cm (0.6 - 1.1) IVSs: 2.7 cm LVIDs: 3.9 cm LVPWs: 1.9 cm RVIDd: 3.6 cm (< 3.3) LAESV Index (A-L): 24.31 ml/m Ao Diam: 3.7 cm (2.0 - 3.7) AV Cusp: 2.2 cm (1.5 - 2.6) MV E Shaheed: 0.68 m/s MV DecT: 215 ms MV A Shaheed: 0.81 m/s MV E/A Ratio: 0.85 RAP: 5.00 mmHg RVSP: 27.52 mmHg FINDINGS -------- This was a technically adequate study. The left ventricular size is normal. There is moderate concentric left ventricular hypertrophy. T here is moderate global hypokinesis of LV WITH APICAL ANEURYSM . Overall left ventricular systolic f unction is moderate-severely impaired with, an EF between 30 - 35 %. Mitral Doppler inflow pattern suggests diastolic filling abnormality 13.48. The right ventricle is mildly enlarged. Normal LA size by volume 22+/-6 ml/m2. The right atrial size is normal. Interatrial and interventricular septum intact. The aortic valve was not well visualized. There is no evidence of aortic regurgitation. There is no evidence of aortic stenosis. Mild mitral regurgitation is present. Mild tricuspid regurgitation present. There is no evidence of pulmonary hypertension. The right v entricular systolic pressure, as measured by Doppler, is 27.52mmHg. There is no pulmonic regurgitation present. The aortic root size is normal. IVC Not well visulized. There is no pericardial effusion. CONCLUSIONS -------- 1. The left ventricular size is normal. 2. There is moderate concentric left ventricular hypertrophy. 3. There is moderate global hypokinesis of LV . 4. Overall left ventricular systolic function is moderate-severely impaired with, an EF between 30 - 35 %. 5. Mitral Doppler inflow pattern suggest diastolic filling abnormality 13.48. 6. The right ventricle is mildly enlarged. 7. Mild mitral regurgitation is present. 8. Mild tricuspid regurgitation present. FOOD CHECKER: Re Carter RDCS
== END 2020-04-08 18:00 | disposition home or self-care (01) ==
LOC: EC 12:36 → 3NCARDOBS 14:39
PROVIDERS: ADMIT Family Medicine; ATTEND Family Medicine
DX: R07.89 Other chest pain (principal); R11.0 Nausea; R61 Generalized hyperhidrosis; I25.2 Old myocardial infarction; I25.10 Atherosclerotic heart disease of native coronary artery without angina pectoris; J44.9 Chronic obstructive pulmonary disease, unspecified; I11.0 Hypertensive heart disease with heart failure; I50.22 Chronic systolic (congestive) heart failure; I42.0 Dilated cardiomyopathy; E78.5 Hyperlipidemia, unspecified; F41.9 Anxiety disorder, unspecified; F32.9 Major depressive disorder, single episode, unspecified; Z77.22 Contact with and (suspected) exposure to environmental tobacco smoke (acute) (chronic); I44.7 Left bundle-branch block, unspecified; Z88.5 Allergy status to narcotic agent; Z79.899 Other long term (current) drug therapy; Z79.01 Long term (current) use of anticoagulants; Z86.711 Personal history of pulmonary embolism; Z90.49 Acquired absence of other specified parts of digestive tract; Z95.810 Presence of automatic (implantable) cardiac defibrillator; Z87.891 Personal history of nicotine dependence; Z86.74 Personal history of sudden cardiac arrest; Z91.19 Patient's noncompliance with other medical treatment and regimen; Z91.14 Patient's other noncompliance with medication regimen; T50.916A Underdosing of multiple unspecified drugs, medicaments and biological substances, initial encounter; Z91.120 Patient's intentional underdosing of medication regimen due to financial hardship; Z86.718 Personal history of other venous thrombosis and embolism; Z87.01 Personal history of pneumonia (recurrent); Z83.3 Family history of diabetes mellitus; Z82.49 Family history of ischemic heart disease and other diseases of the circulatory system
CPT/HCPCS: 93005 ×2; 96376; 96374; 99285; 36415; 94640 ×3; 94760; 93306; 85379; 80061; 80053; 83735; 84484; 85025; 85610 ×2; 85730; 71046; G0378 ×2; J2060

== ENCOUNTER → 2020-05-17 | Outpatient (CLI) | payer MEDICARE | END | disposition home or self-care (01) | LOC: LABWHC1 14:50 | PROVIDERS: ATTEND Family Medicine | DX: Z20.828 Contact with and (suspected) exposure to other viral communicable diseases (principal) | CPT/HCPCS: U0003; C9803 ==

== ENCOUNTER 2020-05-21 18:44 | Emergency (ER) | payer MEDICARE ==
[2020-05-21] MEDS ORDERED: methylPREDNISolone SOD SUCCI 125 MG/2 ML VIAL IV STA (19:14)
--- NOTE | 2020-05-21 19:19 | XR ---
EXAMINATION TYPE: XR chest 2V DATE OF EXAM: 05/21/2020 COMPARISON: 04/07/2020 HISTORY: Chest pain TECHNIQUE: 2 views FINDINGS: There is no heart failure nor confluent pneumonic infiltrate. Costophrenic angles are clear . There is left axillary pacemaker. IMPRESSION: No active cardiopulmonary disease. No change.
[2020-05-21 19:38] LABS: Basophils # (A) 0.1 k/uL (0-0.2); Basophils % (A) 1 %; Eosinophils # (A) 0.4 k/uL (0-0.7); Eosinophils % (A) 5 %; HCT 44.1 % (34.0-46.0); Lymphocytes % (A) 25 %; MCH 29.6 pg (25.0-35.0); MCV 87.2 fL (80.0-100.0); Monocytes # (A) 0.4 k/uL (0-1.0); Monocytes % (A) 5 %; Neutrophils # (A) 4.9 k/uL (1.3-7.7); Neutrophils % (A) 63 %; Platelet Count 167 k/uL (150-450); RBC 5.06 m/uL (3.80-5.40); RDW 15.1 % (11.5-15.5); WBC 7.8 k/uL (3.8-10.6)
[2020-05-21 19:45] LABS: ALT 27 U/L (4-34); AST 43 U/L (14-36); African American GFR (CKD) >90 (>60 ml/min/1.73 sqM); Albumin 4.5 g/dL (3.5-5.0); Alkaline Phosphatase 128 U/L (38-126); Anion Gap 8 mmol/L; Blood Urea Nitrogen 9 mg/dL (7-17); Calcium 9.5 mg/dL (8.4-10.2); Carbon Dioxide 26 mmol/L (22-30); Chloride 104 mmol/L (98-107); Glucose 105 mg/dL (74-99); Non-African American GFR(CKD) >90 (>60 ml/min/1.73 sqM); Sodium 138 mmol/L (137-145); Total Bilirubin 0.9 mg/dL (0.2-1.3); Total Protein 7.8 g/dL (6.3-8.2)
[2020-05-21] MEDS ORDERED: methylPREDNISolone SOD SUCCI 125 MG/2 ML VIAL IM ONE (19:45)
[2020-05-21 20:03] LABS: Potassium 4.9 mmol/L (3.5-5.1)
[2020-05-21 20:25] LABS: D-Dimer 0.5 mg/L FEU (<0.60); INR 1.1 (<1.2); Prothrombin Time 11.3 sec (9.0-12.0)
[2020-05-21 20:31] LABS: Partial Thromboplastin Time 19.9 sec (22.0-30.0)
--- NOTE | 2020-05-21 20:42 | ED ---
URI HPI - General Chief Complaint: Upper Respiratory Infection Stated Complaint: SOB Time Seen by Provider: 05/21/20 18:52 Source: patient Mode of arrival: ambulatory Limitations: no limitations - History of Present Illness Initial Comments: 54-year-old female extensive past medical history on Coumadin presenting to the ER today for chief complaint of cough congestion shortness of breath. She states the past 5 days she's had cough congestion shortness of breath she states headache over test Wednesday and is unsure of the results. Patient denies fevers. Patient was concerned she had pneumonia but she has slight pain at times in her back with a cough. Patient denies any hemoptysis she denies any leg swelling calf pain. Patient states she has not had a DVT or pulmonary embolism since she's been on her Coumadin. Patient states she is compliant she denies additional complaints she denies a chest pressure jar arm pain. Patient has obvious upper respiratory symptoms on arrival she is coughing afebrile and nontoxic in appearance - Related Data Home Medications Medication Instructions Recorded Confirmed Warfarin Sodium [Coumadin] 7.5 mg PO [id number]@199912/06/14 04/07/20 ALPRAZolam [Xanax] 0.25 mg PO TID PRN 07/17/17 04/07/20 [place]-3 Fatty Acids/Fish Oil [Fish 1 cap PO DAILY 07/17/17 04/07/20 Oil 1,000 mg Softgel] traZODone HCL 50 mg PO HS 07/17/17 04/07/20 Albuterol Sulfate [Albuterol 2 puff PO RT-Q6H PRN 04/07/20 04/07/20 Sulfate Hfa] Previous Rx's Medication Instructions Recorded Meclizine [Antivert] 25 mg PO TID PRN #15 tab 12/15/17 Amiodarone [Cordarone] 100 mg PO DAILY #90 tab 04/08/20 Atorvastatin [Lipitor] 40 mg PO DAILY #90 tab 04/08/20 Spironolactone [Aldactone] 25 mg PO DAILY #90 tab 04/08/20 Warfarin [Coumadin] 5 mg PO DAILY #90 tab 04/08/20 carvediloL [Coreg] 6.25 mg PO BID-W/MEALS #180 tab 04/08/20 lisinopriL [Zestril] 2.5 mg PO DAILY #90 tab 04/08/20 Azithromycin [Zithromax Z-pack (6 0 mg PO DIRECTED #6 tab 05/21/20 tabs)] Allergies Allergy/AdvReac Type Severity Reaction Status Date / Time hydromorphone [From Dilaudid] AdvReac Vomiting Verified 05/21/20 18:47 Review of Systems ROS Statement: Those systems with pertinent positive or pertinent negative responses have been documented in the HPI. ROS Other: All systems not noted in ROS Statement are negative. Past Medical History Past Medical History: COPD, Deep Vein Thrombosis (DVT), Hyperlipidemia, Hypertension, Myocardial Infarction ([place]), Pneumonia Additional Past Medical History / Comment(s): cardiomyopathy, DVT ( 4 yrs ago), Last Myocardial Infarction Date:: 4 yrs ago History of Any Multi-Drug Resistant Organisms: None Reported Past Surgical History: AICD, Cholecystectomy Additional Past Surgical History / Comment(s): defibrillator Past Anesthesia/Blood Transfusion Reactions: No Reported Reaction Type of Cardiac Device: AICD Device Placement Date:: 2012 Past Psychological History: Anxiety, Depression Smoking Status: Former smoker - Past Family History Mother Family Medical History: Diabetes Mellitus, Hypertension Father Family Medical History: No Reported History General Exam - General Exam Comments Initial Comments: General: The patient is awake and alert, in no distress Eye: +3 mm pupils are equal, round and reactive to light, extra-ocular movem ents are intact. No nystagmus. There is normal conjunctiva bilaterally. No signs of icterus. Ears, nose, mouth and throat: There are moist mucous membranes and no oral l esions. Nasal congestion Neck: The neck is supple, there is no tenderness or JVD. Cardiovascular: There is a regular rate and rhythm. No murmur, rub or gallop is appreciated. Respiratory: Lungs are clear to auscultation, respirations are non-labored, breath sounds are equal. No wheezes, stridor, rales, or rhonchi. cough Gastrointestinal: Soft, non-distended, non-tender abdomen without masses or organomegaly noted. There is no rebound or guarding present. Musculoskeletal: Normal ROM, no tenderness. Strength 5/5. Sensation intact. Radial pulses equal bilaterally 2+. Neurological: A&O x 3. CN II-XII intact grossly, There are no obvious motor or sensory deficits. Coordination appears grossly intact. Speech is normal. Skin: Skin is warm and dry and no rashes or lesions are noted. No LE edema Psychiatric: Cooperative, appropriate mood & affect, normal judgment. Limitations: no limitations Course Vital Signs 05/21/20 05/21/20 18:45 21:24 Temperature 98.3 F 98.7 F Pulse Rate 107 H 80 Respiratory 18 17 Rate Blood Pressure 146/93 131/82 O2 Sat by Pulse 96 99 Oximetry Medical Decision Making - Medical Decision Making Labs stable. EKG no acute change. Dimer (-). CXR clear. obvious URI symptoms. Geni will be treated symptomatically, as she is a COPD pt iwll be discharge with jennifer. Geni givne steroids in ER. Patient agreeable to this care plan and discharge. Dr. Foster agreeable to care plan. - Lab Data Result diagrams: 05/21/20 19:27 05/21/20 19:27 Lab Results 05/21/20 05/21/20 05/21/20 Range/Units 19:27 19:27 19:27 WBC 7.8 (3.8-10.6) k/uL RBC 5.06 (3.80-5.40) m/uL Hgb 15.0 (11.4-16.0) gm/dL Hct 44.1 (34.0-46.0) % MCV 87.2 (80.0-100.0) fL MCH 29.6 (25.0-35.0) pg MCHC 34.0 (31.0-37.0) g/dL RDW 15.1 (11.5-15.5) % Plt Count 167 (150-450) k/uL Neutrophils % 63 % Lymphocytes % 25 % Monocytes % 5 % Eosinophils % 5 % Basophils % 1 % Neutrophils # 4.9 (1.3-7.7) k/uL Lymphocytes # 2.0 (1.0-4.8) k/uL Monocytes # 0.4 (0-1.0) k/uL Eosinophils # 0.4 (0-0.7) k/uL Basophils # 0.1 (0-0.2) k/uL PT 11.3 (9.0-12.0) sec INR 1.1 (<1.2) APTT 19.9 L (22.0-30.0) sec D-Dimer 0.50 (<0.60) mg/L FEU Sodium 138 (137-145) mmol/L Potassium 4.9 (3.5-5.1) mmol/L Chloride 104 (98-107) mmol/L Carbon Dioxide 26 (22-30) mmol/L Anion Gap 8 mmol/L BUN 9 (7-17) mg/dL Creatinine 0.72 (0.52-1.04) mg/dL Est GFR (CKD-EPI)AfAm >90 (>60 ml/min/1.73 sqM) Est GFR (CKD-EPI)NonAf >90 (>60 ml/min/1.73 sqM) Glucose 105 H (74-99) mg/dL Calcium 9.5 (8.4-10.2) mg/dL Total Bilirubin 0.9 (0.2-1.3) mg/dL AST 43 H (14-36) U/L ALT 27 (4-34) U/L Alkaline Phosphatase 128 H (38-126) U/L Total Protein 7.8 (6.3-8.2) g/dL Albumin 4.5 (3.5-5.0) g/dL Disposition Clinical Impression: Cough, Congestion of nasal sinus, Dyspnea Disposition: HOME SELF-CARE Condition: Good Additional Instructions: Please use medication as discussed. Please follow-up with family doctor in the next 2 days.. Please return to emergency room if the symptoms increase or worsen or for any other concerns. Prescriptions: Azithromycin [Zithromax Z-pack (6 tabs)] 0 mg PO DIRECTED #6 tab Is patient prescribed a controlled substance at d/c from ED?: No Referrals: Daniel Mosqueda MD [Primary Care Provider] - 1-2 days Time of Disposition: 20:42
[2020-05-21 21:26] VITALS: BP 131/82; PULSE 80; RESP 17; TEMP 98.7
== END 2020-05-21 21:25 | disposition home or self-care (01) ==
LOC: EC 18:44
DX: R06.02 Shortness of breath (principal); R05 Cough; R09.81 Nasal congestion; F41.9 Anxiety disorder, unspecified; F32.9 Major depressive disorder, single episode, unspecified; J44.9 Chronic obstructive pulmonary disease, unspecified; I25.2 Old myocardial infarction; Z79.899 Other long term (current) drug therapy; Z79.01 Long term (current) use of anticoagulants; Z86.718 Personal history of other venous thrombosis and embolism; Z87.891 Personal history of nicotine dependence; Z90.49 Acquired absence of other specified parts of digestive tract; Z88.5 Allergy status to narcotic agent
CPT/HCPCS: 36415; 93005; 85379; 80053; 85025; 85610; 85730; 71046; 99285; 96372; J2930

== ENCOUNTER 2020-07-06 18:35 | Emergency (ER) | payer MEDICARE ==
[2020-07-06 18:40] VITALS: RESP 18; TEMP 98.2
--- NOTE | 2020-07-06 18:54 | ED ---
General Adult HPI - General Chief complaint: Arrhythmia/Palpitations Stated complaint: AICD Fired Time Seen by Provider: 07/06/20 18:41 Source: patient Mode of arrival: wheelchair Limitations: no limitations - History of Present Illness Initial comments: Dictation was produced using [employer] dictation software. please excuse any grammatical, word or spelling errors. This patient was cared for during a federal and state declared state of emergency secondary to Covid 19 Chief Complaint: 54-year-old female past medical history of myocardial infarction, cardiomyopathy, AICD/pacemaker presents today with sharp pain to the left anterior chest and dull ache to the left subscapular area. History of Present Illness: She is a 54-year-old female she has multiple cardiac comorbidities. She has an AICD pacemakerseveral years ago. She is here today because she was washing dishes and all of a sudden she felt 2 sharp stabbing like pains to her left lateral anterior chest. Shortly after she began experiencing a dull ache to her left subscapular area. Patient called her primary care physicians office and was instructed to come to the emergency department to be evaluated. Patient states she does still has some mild episodic pains. Denies any substernal pressure. No radiation to the jaw or down the extremity. The ROS documented in this emergency department record has been reviewed and confirmed by me. Those systems with pertinent positive or negative responses have been documented in the HPI. All other systems are other negative and/or noncontributory. PHYSICAL EXAM: General Impression: Alert and oriented x3, not in acute distress HEENT: Normocephalic atraumatic, extra-ocular movements intact, pupils equal and reactive to light bilaterally, mucous membranes moist. Cardiovascular: Heart regular rate and rhythm Chest: Able to complete full sentences, no retractions, no tachypnea Abdomen: abdomen soft, non-tender, non-distended, no organomegaly Musculoskeletal: Pulses present and equal in all extremities, no peripheral edema Motor: no focal deficits noted Neurological: CN II-XII grossly intact, no focal motor or sensory deficits noted Skin: Intact with no visualized rashes Psych: Normal affect and mood ED course: 54-year-old female presents with vague episodic left lateral thoracic and left subscapular pain. vital Signs upon arrival are within acceptable limits. Patient's pacemaker was interrogated. No events were noted. Patient reports that time she parents symptoms around 5:30 PM. There was an event of PMT at 453 and 4:54 PM. Laboratory evaluation obtained. CBC, coag panel, metabolic panel is unremarkable. Troponin is negative. Discussed the patient that her symptoms are very atypical and could be secondary to acute cardiac process. It was recommended to her to be admitted for cardiology consultation and repeat troponin. Patient prefers to be discharged. She understands that she should return to the emergency department if she has recurrence of symptoms. At this point there are no high-risk features. Patient is reevaluated bedside Dee been stable medical condition at approximately 8: 15 p.m. She understands the risks of being discharged. EKG interpretation: Ventricular rate 93, the paced rhythm, QRS 172, QTc 549. No OR prolongation, no QTC prolongation, no ST or T-wave changes noted. EKG compared to 05/21/2020 showing no changes. Overall, this EKG is unremarkable - Related Data Home Medications Medication Instructions Recorded Confirmed Warfarin Sodium [Coumadin] 7.5 mg PO SUMOTUTHFR@199912/06/14 07/06/20 ALPRAZolam [Xanax] 0.25 mg PO TID PRN 07/17/17 07/06/20 [place]-3 Fatty Acids/Fish Oil [Fish 1 cap PO DAILY 07/17/17 07/06/20 Oil 1,000 mg Softgel] traZODone HCL 50 mg PO HS 07/17/17 07/06/20 Albuterol Sulfate [Albuterol 2 puff INHALATION RT-Q6H PRN 04/07/20 07/06/20 Sulfate Hfa] Warfarin [Coumadin] 5 mg PO WE 07/06/20 07/06/20 Previous Rx's Medication Instructions Recorded Amiodarone [Cordarone] 100 mg PO DAILY #90 tab 04/08/20 Spironolactone [Aldactone] 25 mg PO DAILY #90 tab 04/08/20 carvediloL [Coreg] 6.25 mg PO BID-W/MEALS #180 tab 04/08/20 lisinopriL [Zestril] 2.5 mg PO DAILY #90 tab 04/08/20 Allergies Allergy/AdvReac Type Severity Reaction Status Date / Time hydromorphone [From Dilaudid] AdvReac Vomiting Verified 07/06/20 19:43 Review of Systems ROS Statement: Those systems with pertinent positive or pertinent negative responses have been documented in the HPI. ROS Other: All systems not noted in ROS Statement are negative. Past Medical History Past Medical History: COPD, Deep Vein Thrombosis (DVT), Hyperlipidemia, Hypertension, Myocardial Infarction ([place]), Pneumonia Additional Past Medical History / Comment(s): cardiomyopathy, DVT ( 4 yrs ago), Last Myocardial Infarction Date:: 4 yrs ago History of Any Multi-Drug Resistant Organisms: None Reported Past Surgical History: AICD, Cholecystectomy Additional Past Surgical History / Comment(s): defibrillator Past Anesthesia/Blood Transfusion Reactions: No Reported Reaction Type of Cardiac Device: AICD Device Placement Date:: 2012 Past Psychological History: Anxiety, Depression Smoking Status: Former smoker Past Alcohol Use History: None Reported Past Drug Use History: None Reported - Past Family History Mother Family Medical History: Diabetes Mellitus, Hypertension Father Family Medical History: No Reported History General Exam Limitations: no limitations Course Vital Signs 07/06/20 18:37 Temperature 98.2 F Pulse Rate 98 Respiratory 18 Rate Blood Pressure 142/87 O2 Sat by Pulse 97 Oximetry Medical Decision Making - Lab Data Result diagrams: 07/06/20 18:59 07/06/20 18:59 Lab Results 07/06/20 07/06/20 07/06/20 Range/Units 18:59 18:59 18:59 WBC 8.1 (3.8-10.6) k/uL RBC 5.33 (3.80-5.40) m/uL Hgb 15.9 (11.4-16.0) gm/dL Hct 45.0 (34.0-46.0) % MCV 84.4 (80.0-100.0) fL MCH 29.7 (25.0-35.0) pg MCHC 35.2 (31.0-37.0) g/dL RDW 15.2 (11.5-15.5) % Plt Count 187 (150-450) k/uL MPV 8.6 Neutrophils % 61 % Lymphocytes % 27 % Monocytes % 5 % Eosinophils % 4 % Basophils % 1 % Neutrophils # 5.0 (1.3-7.7) k/uL Lymphocytes # 2.2 (1.0-4.8) k/uL Monocytes # 0.4 (0-1.0) k/uL Eosinophils # 0.3 (0-0.7) k/uL Basophils # 0.1 (0-0.2) k/uL Poikilocytosis Slight PT 25.3 H (9.0-12.0) sec INR 2.6 H (<1.2) APTT 34.2 H (22.0-30.0) sec Sodium 137 (137-145) mmol/L Potassium 4.5 (3.5-5.1) mmol/L Chloride 103 (98-107) mmol/L Carbon Dioxide 28 (22-30) mmol/L Anion Gap 6 mmol/L BUN 12 (7-17) mg/dL Creatinine 0.86 (0.52-1.04) mg/dL Est GFR (CKD-EPI)AfAm 89 (>60 ml/min/1.73 sqM) Est GFR (CKD-EPI)NonAf 77 (>60 ml/min/1.73 sqM) Glucose 111 H (74-99) mg/dL Calcium 9.4 (8.4-10.2) mg/dL Magnesium 2.2 (1.6-2.3) mg/dL Total Bilirubin 0.5 (0.2-1.3) mg/dL AST 36 (14-36) U/L ALT 31 (4-34) U/L Alkaline Phosphatase 103 (38-126) U/L Troponin I (0.000-0.034) ng/mL Total Protein 7.7 (6.3-8.2) g/dL Albumin 4.5 (3.5-5.0) g/dL 07/06/ Range/Units 18:59 WBC (3.8-10.6) k/uL RBC (3.80-5.40) m/uL Hgb (11.4-16.0) gm/dL Hct (34.0-46.0) % MCV (80.0-100.0) fL MCH (25.0-35.0) pg MCHC (31.0-37.0) g/dL RDW (11.5-15.5) % Plt Count (150-450) k/uL MPV Neutrophils % % Lymphocytes % % Monocytes % % Eosinophils % % Basophils % % Neutrophils # (1.3-7.7) k/uL Lymphocytes # (1.0-4.8) k/uL Monocytes # (0-1.0) k/uL Eosinophils # (0-0.7) k/uL Basophils # (0-0.2) k/uL Poikilocytosis PT (9.0-12.0) sec INR (<1.2) APTT (22.0-30.0) sec Sodium (137-145) mmol/L Potassium (3.5-5.1) mmol/L Chloride (98-107) mmol/L Carbon Dioxide (22-30) mmol/L Anion Gap mmol/L BUN (7-17) mg/dL Creatinine (0.52-1.04) mg/dL Est GFR (CKD-EPI)AfAm (>60 ml/min/1.73 sqM) Est GFR (CKD-EPI)NonAf (>60 ml/min/1.73 sqM) Glucose (74-99) mg/dL Calcium (8.4-10.2) mg/dL Magnesium (1.6-2.3) mg/dL Total Bilirubin (0.2-1.3) mg/dL AST (14-36) U/L ALT (4-34) U/L Alkaline Phosphatase (38-126) U/L Troponin I <0.012 (0.000-0.034) ng/mL Total Protein (6.3-8.2) g/dL Albumin (3.5-5.0) g/dL Disposition Clinical Impression: Chest pain Disposition: HOME SELF-CARE Condition: Fair Instructions (If sedation given, give patient instructions): Chest Pain (ED) Additional Instructions: Follow-up with your reverse unit operator fisherman for evaluation of your AICD/pacemaker Is patient prescribed a controlled substance at d/c from ED?: No Referrals: Daniel Mosqueda MD [Primary Care Provider] - 1-2 days Time of Disposition: 20:38
[2020-07-06 19:11] LABS: Basophils # (A) 0.1 k/uL (0-0.2); Basophils % (A) 1 %; Eosinophils # (A) 0.3 k/uL (0-0.7); Eosinophils % (A) 4 %; HGB 15.9 gm/dL (11.4-16.0); Lymphocytes # (A) 2.2 k/uL (1.0-4.8); Lymphocytes % (A) 27 %; MCH 29.7 pg (25.0-35.0); MCHC 35.2 g/dL (31.0-37.0); MCV 84.4 fL (80.0-100.0); Mean Platelet Volume 8.6; Monocytes # (A) 0.4 k/uL (0-1.0); Monocytes % (A) 5 %; Neutrophils % (A) 61 %; Platelet Count 187 k/uL (150-450); Poikilocytosis Slight; RBC 5.33 m/uL (3.80-5.40); RDW 15.2 % (11.5-15.5); WBC 8.1 k/uL (3.8-10.6)
--- NOTE | 2020-07-06 19:23 | XR ---
EXAMINATION TYPE: XR chest 1V portable DATE OF EXAM: 07/06/2020 COMPARISON: 05/21/2020 HISTORY: Dysrhythmia TECHNIQUE: Single view FINDINGS: There is no heart failure nor confluent pneumonic infiltrate. Costophrenic angles are clear . There is left axillary pacemaker. There are no hilar masses. IMPRESSION: No active cardiopulmonary disease. Normal heart. No change.
[2020-07-06 19:26] LABS: INR 2.6 (<1.2); Partial Thromboplastin Time 34.2 sec (22.0-30.0); Prothrombin Time 25.3 sec (9.0-12.0)
[2020-07-06 19:41] LABS: Albumin 4.5 g/dL (3.5-5.0); Calcium 9.4 mg/dL (8.4-10.2); Magnesium 2.2 mg/dL (1.6-2.3); Potassium 4.5 mmol/L (3.5-5.1); Total Bilirubin 0.5 mg/dL (0.2-1.3); Total Protein 7.7 g/dL (6.3-8.2)
[2020-07-06] MEDS ORDERED: ASPIRIN 81 MG PO STA (20:37)
[2020-07-06 20:50] VITALS: BP 107/70; PULSE 80
== END 2020-07-06 20:50 | disposition home or self-care (01) ==
LOC: EC 18:35
DX: R07.9 Chest pain, unspecified (principal); I10 Essential (primary) hypertension; I25.2 Old myocardial infarction; J44.9 Chronic obstructive pulmonary disease, unspecified; E78.5 Hyperlipidemia, unspecified; F41.9 Anxiety disorder, unspecified; F32.9 Major depressive disorder, single episode, unspecified; Z79.01 Long term (current) use of anticoagulants; Z79.899 Other long term (current) drug therapy; Z88.5 Allergy status to narcotic agent; Z86.718 Personal history of other venous thrombosis and embolism; Z87.891 Personal history of nicotine dependence; Z95.810 Presence of automatic (implantable) cardiac defibrillator
CPT/HCPCS: 36415; 71045; 80053; 83735; 84484; 85025; 85610; 85730; 93005; 93288; 99285

== ENCOUNTER 2020-08-15 09:36 | Inpatient (IN) | payer MEDICARE ==
[2020-08-15 09:44] VITALS: TEMP 97.9
[2020-08-15] MEDS ORDERED: IPRATROPIUM-ALBUTEROL 3 ML NEB INHALATION STA (10:05)
[2020-08-15] MEDS ORDERED: methylPREDNISolone SOD SUCCI 125 MG/2 ML VIAL IV STA (10:06)
[2020-08-15] MEDS ORDERED: METOCLOPRAMIDE 5 MG/ML 2 ML VIAL IVP STA (10:07)
[2020-08-15] MEDS ORDERED: diphenhydrAMINE 50 MG/ML 1 ML VIAL IVP STA (10:07)
--- NOTE | 2020-08-15 10:13 | ED ---
General Adult HPI - General Chief complaint: Shortness of Breath Stated complaint: SOB Time Seen by Provider: 08/15/20 09:45 Source: patient, RN notes reviewed Mode of arrival: ambulatory Limitations: no limitations - History of Present Illness Initial comments: 55 show female presents emergency Department with chief complaint of shortness of breath. Patient states that she started with some cough congestion a few days ago which she just wants and needs Wasn't typical cold. Patient states today she had more exertional symptoms states that she walked to the trash out states she came back and has a down position is very short of breath. Patient does admit that she does have a history of COPD. Patient is not currently smoking. Patient states she tried her inhaler a few times which minimally helped. No fevers chillsand bodyaches no sick contacts. Denies any leg pain leg swelling. Patient does have a history of blood clot she states after she had a myocardial infarction. Patient states she does take Coumadin currently she states that she has a checked and regular basis. She states with her cough and congestion she has developed a sev ere migraine. She states is worse than typical. Patient has not taken anything for her pain. - Related Data Home Medications Medication Instructions Recorded Confirmed Warfarin [Coumadin] 5 mg PO W/SUPPER 07/06/20 08/15/20 Atorvastatin [Lipitor] 40 mg PO HS 08/15/20 08/15/20 Spironolactone [Aldactone] 25 mg PO HS 08/15/20 08/15/20 Previous Rx's Medication Instructions Recorded Amiodarone [Cordarone] 100 mg PO DAILY #90 tab 04/08/20 carvediloL [Coreg] 6.25 mg PO BID-W/MEALS #180 tab 04/08/20 lisinopriL [Zestril] 2.5 mg PO DAILY #90 tab 04/08/20 Allergies Allergy/AdvReac Type Severity Reaction Status Date / Time hydromorphone [From Dilaudid] AdvReac Vomiting Verified 08/15/20 11:09 Review of Systems ROS Statement: Those systems with pertinent positive or pertinent negative responses have been documented in the HPI. ROS Other: All systems not noted in ROS Statement are negative. Past Medical History Past Medical History: COPD, Deep Vein Thrombosis (DVT), Hyperlipidemia, Hypertension, Myocardial Infarction ([place]), Pneumonia Additional Past Medical History / Comment(s): cardiomyopathy, DVT ( 4 yrs ago), Last Myocardial Infarction Date:: 4 yrs ago History of Any Multi-Drug Resistant Organisms: None Reported Past Surgical History: AICD, Cholecystectomy Additional Past Surgical History / Comment(s): defibrillator Past Anesthesia/Blood Transfusion Reactions: No Reported Reaction Type of Cardiac Device: AICD Device Placement Date:: 2012 Past Psychological History: Anxiety, Depression Smoking Status: Former smoker Past Alcohol Use History: None Reported Past Drug Use History: None Reported - Past Family History Mother Family Medical History: Diabetes Mellitus, Hypertension Father Family Medical History: No Reported History General Exam Limitations: no limitations General appearance: alert, in no apparent distress Head exam: Present: atraumatic, normocephalic, normal inspection Eye exam: Present: normal appearance, PERRL, EOMI. Absent: scleral icterus, conjunctival injection, periorbital swelling ENT exam: Present: normal exam, normal oropharynx, mucous membranes moist Neck exam: Present: normal inspection, full ROM. Absent: tenderness, meningismus, lymphadenopathy Respiratory exam: Present: wheezes (Bilateral throughout). Absent: normal lung sounds bilaterally, respiratory distress, rales, rhonchi, stridor Cardiovascular Exam: Present: regular rate, normal rhythm, normal heart sounds. Absent: systolic murmur, diastolic murmur, rubs, gallop, clicks GI/Abdominal exam: Present: soft, normal bowel sounds. Absent: distended, tenderness, guarding, rebound, rigid Neurological exam: Present: alert, oriented X3, CN II-XII intact, reflexes normal, other (Finger to nose intact bilaterally without over shooting). Absent: motor sensory deficit Skin exam: Present: warm, dry, intact, normal color. Absent: rash Course Vital Signs 08/15/20 08/15/20 08/15/20 09:39 11:10 11:20 Temperature 97.9 F Pulse Rate 95 84 81 Respiratory 20 Rate Blood Pressure 144/96 O2 Sat by Pulse 95 Oximetry 08/15/20 11:32 Temperature 97.9 F Pulse Rate 81 Respiratory 20 Rate Blood Pressure 128/82 O2 Sat by Pulse 93 L Oximetry Medical Decision Making - Medical Decision Making 55-year-old female presents emergency Department chief complaint shortness of breath, headache. Patient on have mild COPD exacerbation, Covid is negative, EKG and labs. N. pt CT brain shows probable mass versus thrombus patient is currently on Coumadin. Patient's neurologically intact. Case discussed with Dr. Mosqueda which the patient will be admitted for MRI. - Lab Data Result diagrams: 08/15/20 10:25 08/15/20 10:25 Lab Results 08/15/20 08/15/20 08/15/20 Range/Units 10:25 10:25 10:25 WBC 7.2 (3.8-10.6) k/uL RBC 5.32 (3.80-5.40) m/uL Hgb 15.9 (11.4-16.0) gm/dL Hct 45.2 (34.0-46.0) % MCV 84.9 (80.0-100.0) fL MCH 29.9 (25.0-35.0) pg MCHC 35.2 (31.0-37.0) g/dL RDW 14.8 (11.5-15.5) % Plt Count 180 (150-450) k/uL MPV 8.7 Neutrophils % 65 % Lymphocytes % 24 % Monocytes % 6 % Eosinophils % 3 % Basophils % 0 % Neutrophils # 4.7 (1.3-7.7) k/uL Lymphocytes # 1.7 (1.0-4.8) k/uL Monocytes # 0.4 (0-1.0) k/uL Eosinophils # 0.2 (0-0.7) k/uL Basophils # 0.0 (0-0.2) k/uL PT 15.9 H (9.0-12.0) sec INR 1.6 H (<1.2) APTT 27.0 (22.0-30.0) sec D-Dimer 0.42 (<0.60) mg/L FEU Sodium 138 (137-145) mmol/L Potassium 4.4 (3.5-5.1) mmol/L Chloride 103 (98-107) mmol/L Carbon Dioxide 27 (22-30) mmol/L Anion Gap 8 mmol/L BUN 9 (7-17) mg/dL Creatinine 0.77 (0.52-1.04) mg/dL Est GFR (CKD-EPI)AfAm >90 (>60 ml/min/1.73 sqM) Est GFR (CKD-EPI)NonAf 87 (>60 ml/min/1.73 sqM) Glucose 112 H (74-99) mg/dL Plasma Lactic Acid Carlos Eduardo (0.7-2.0) mmol/L Calcium 9.5 (8.4-10.2) mg/dL Total Bilirubin 0.6 (0.2-1.3) mg/dL AST 38 H (14-36) U/L ALT 29 (4-34) U/L Alkaline Phosphatase 99 (38-126) U/L Troponin I (0.000-0.034) ng/mL Total Protein 7.7 (6.3-8.2) g/dL Albumin 4.6 (3.5-5.0) g/dL Coronavirus (PCR) (Not Detectd) 08/15/20 08/15/20 08/15/20 Range/Units 10:25 10:25 10:25 WBC (3.8-10.6) k/uL RBC (3.80-5.40) m/uL Hgb (11.4-16.0) gm/dL Hct (34.0-46.0) % MCV (80.0-100.0) fL MCH (25.0-35.0) pg MCHC (31.0-37.0) g/dL RDW (11.5-15.5) % Plt Count (150-450) k/uL MPV Neutrophils % % Lymphocytes % % Monocytes % % Eosinophils % % Basophils % % Neutrophils # (1.3-7.7) k/uL Lymphocytes # (1.0-4.8) k/uL Monocytes # (0-1.0) k/uL Eosinophils # (0-0.7) k/uL Basophils # (0-0.2) k/uL PT (9.0-12.0) sec INR (<1.2) APTT (22.0-30.0) sec D-Dimer (<0.60) mg/L FEU Sodium (137-145) mmol/L Potassium (3.5-5.1) mmol/L Chloride (98-107) mmol/L Carbon Dioxide (22-30) mmol/L Anion Gap mmol/L BUN (7-17) mg/dL Creatinine (0.52-1.04) mg/dL Est GFR (CKD-EPI)AfAm (>60 ml/min/1.73 sqM) Est GFR (CKD-EPI)NonAf (>60 ml/min/1.73 sqM) Glucose (74-99) mg/dL Plasma Lactic Acid Carlos Eduardo 1.4 (0.7-2.0) mmol/L Calcium (8.4-10.2) mg/dL Total Bilirubin (0.2-1.3) mg/dL AST (14-36) U/L ALT (4-34) U/L Alkaline Phosphatase (38-126) U/L Troponin I <0.012 (0.000-0.034) ng/mL Total Protein (6.3-8.2) g/dL Albumin (3.5-5.0) g/dL Coronavirus (PCR) Not Detected (Not Detectd) Disposition Clinical Impression: COPD exacerbation, Brain mass Disposition: ADMITTED IP TO THIS HOSP Condition: Fair Referrals: Daniel Mosqueda MD [Primary Care Provider] - 1-2 days
[2020-08-15 10:40] LABS: Basophils % (A) 0 %; Eosinophils # (A) 0.2 k/uL (0-0.7); Eosinophils % (A) 3 %; HCT 45.2 % (34.0-46.0); HGB 15.9 gm/dL (11.4-16.0); Lymphocytes # (A) 1.7 k/uL (1.0-4.8); Lymphocytes % (A) 24 %; MCH 29.9 pg (25.0-35.0); MCHC 35.2 g/dL (31.0-37.0); MCV 84.9 fL (80.0-100.0); Mean Platelet Volume 8.7; Monocytes # (A) 0.4 k/uL (0-1.0); Monocytes % (A) 6 %; Neutrophils # (A) 4.7 k/uL (1.3-7.7); Neutrophils % (A) 65 %; Platelet Count 180 k/uL (150-450); RBC 5.32 m/uL (3.80-5.40); RDW 14.8 % (11.5-15.5); WBC 7.2 k/uL (3.8-10.6)
[2020-08-15 10:52] LABS: ALT 29 U/L (4-34); AST 38 U/L (14-36); African American GFR (CKD) >90 (>60 ml/min/1.73 sqM); Albumin 4.6 g/dL (3.5-5.0); Alkaline Phosphatase 99 U/L (38-126); Anion Gap 8 mmol/L; Blood Urea Nitrogen 9 mg/dL (7-17); Calcium 9.5 mg/dL (8.4-10.2); Carbon Dioxide 27 mmol/L (22-30); Chloride 103 mmol/L (98-107); Glucose 112 mg/dL (74-99); Non-African American GFR(CKD) 87 (>60 ml/min/1.73 sqM); Potassium 4.4 mmol/L (3.5-5.1); Sodium 138 mmol/L (137-145); Total Bilirubin 0.6 mg/dL (0.2-1.3); Total Protein 7.7 g/dL (6.3-8.2)
[2020-08-15 10:53] LABS: D-Dimer 0.42 mg/L FEU (<0.60); INR 1.6 (<1.2); Prothrombin Time 15.9 sec (9.0-12.0)
--- NOTE | 2020-08-15 11:06 | CT ---
EXAMINATION TYPE: CT brain wo con DATE OF EXAM: 08/15/2020 COMPARISON: 12/15/2017, 12/15/2017 INDICATION: Severe headache today DLP: 1114.4 mGycm, Automated exposure control for dose reduction was used. CONTRAST: None CT of the brain is performed utilizing 3 mm thick sections through the posterior fossa and 3 mm thick sections through the remaining calvarium. Study is performed within 24 hours of arrival to the hosp ital. No abnormal hyperdensity is present to suggest an acute intracranial hemorrhage. No hemorrhage within the prepatellar Chip cistern is evident. Free hemorrhage in the suprasellar region is not identifi ed. A 1.0 cm densities in the left suprasellar region suspected to be a large aneurysm. Additional evalua tion with contrast CT brain or MRI is recommended No acute infarcts are evident. Ventricles and sulci are appropriate for the patient age. Paranasal sinuses and mastoid air cells within the [id number] are clear. IMPRESSIONS: 1. 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 Additional evaluation with contrast CT or MRI is recomme nded. Report was called to STUART Mckenna by Dr. Drew by telephone 1102 hours 08/15/2020
--- NOTE | 2020-08-15 11:09 | XR ---
EXAMINATION TYPE: XR chest 2V DATE OF EXAM: 08/15/2020 COMPARISON: 07/06/2020 INDICATION: Difficulty breathing TECHNIQUE: Single frontal view of the chest is obtained. FINDINGS: The heart size is normal. The pulmonary vasculature is normal. The lungs are clear. Pacemaker overlies the left chest IMPRESSION: 1. No acute pulmonary process.
--- NOTE | 2020-08-15 12:55 | CT ---
EXAMINATION TYPE: CT angio COW [place] of [place] DATE OF EXAM: 08/15/2020 HISTORY: Headache, Abnormal CT COMPARISON: CT DLP: 1068.6 mGycm. Automated Exposure Control for Dose Reduction was Utilized. TECHNIQUE: CTA scan of the neck is performed with IV Contrast, patient injected with 100 mL of Isovu e 370, axial images are obtained, coronal and sagittal reformatted images are reviewed. Three-D recon structed images are created on an independent workstation and reviewed. Source images are reviewed. FINDINGS: Cervical of [place]ás[place]: Vertebral basilar system appears normal. Vertebral arteries are codominant. Basil ar artery appears normal. Posterior cerebral vasculature is unremarkable. Posterior communicating art eries appear normal. Internal carotid arteries bifurcate normally into A1 and M1 segments. A2 segment s are normal. The anterior communicating artery is patent. Adjacent to the left A1 segment is a slightly irregular area of slight increased density. No contrast is within this structure. This measures 1.3 cm transverse by 1.0 cm AP and could be a thrombosed ane urysm. A superior sellar mass could be considered. Additional workup with contrast MRI is recommended . Report was called case discussed with emergency room PA by Dr. Drew by telephone 1250 hours 08/15 IMPRESSION: 1. Lobular masslike area inferior to the left A1 segment extending into the suprasellar cistern. Mass is favored. Thrombosed aneurysm is within the differential. Additional workup with contrast MRI is r ecommended. 2. No active hemorrhage or contrast flow into the masslike area is identified. 2. Normal [place]
[2020-08-15] MEDS ORDERED: MORPHINE SULFATE 4 MG/ML SYRINGE IVP STA (13:10)
[2020-08-15] MEDS ORDERED: ONDANSETRON 4 MG/2 ML VIAL IVP STA (13:10)
[2020-08-15] MEDS ORDERED: MORPHINE SULFATE 4 MG/ML SYRINGE IV PRN (13:31)
[2020-08-15] MEDS ORDERED: ONDANSETRON 4 MG/2 ML VIAL IVP PRN (13:31)
[2020-08-15] MEDS ORDERED: HYDROcodone/APAP 5-325MG 1 EACH TAB PO PRN (13:31)
[2020-08-15] MEDS ORDERED: NALOXONE 0.4 MG/ML 1 ML VIAL IV PRN (13:31)
[2020-08-15] MEDS ORDERED: ACETAMINOPHEN TAB 325 MG TAB PO PRN (13:31)
[2020-08-15] MEDS ORDERED: SODIUM CHLORIDE 0.9% 1,000 ML IV SCH (13:45)
[2020-08-15] MEDS ORDERED: IPRATROPIUM-ALBUTEROL 3 ML NEB INHALATION SCH (16:00)
--- NOTE | 2020-08-15 19:42 | P.CNNES ---
History of Present Illness Consult date: 08/15/20 Requesting physician: Gato Mckenna Reason for Consult: Headache, rule out mass. History of Present Illness: Patient is a 55-year-old female, with history of COPD, woke up yesterday with a headache pointing to the bifrontal region. She had nausea but no vomiting. She felt that she slept wrong on a pillow therefore ignored it. The headache has been persistent, rating 5/10. Tylenol only takes the edge off. Patient does not have any history of headaches or migraines. Patient came to the ER for COPD exacerbation, but she also mentioned about her migraine for which computed tomography scan of the head was done. 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 Additional evaluation with contrast CT or MRI is recommended. Patient subsequently underwent CTA of the head with contrast, which revealed lobular masslike area inferior to the left A1 segment extending into the suprasellar cistern. Masses favored. Thrombosed aneurysm is within the differential. Additional workup with contrast MRI is recommended. No active hemorrhage or contrast flow into the masslike area is identified. Normal belkofski of Velásquez. MRI of the brain with and without contrast with MRA of the head were initiated, but turns out patient has a pacemaker, therefore could not be performed. Patient denies any family history of cerebral aneurysms. Her mother 3 years ago off complications from diabetes. Patient has history of hypertension for 5 years. Also on Coumadin for last 5 years for PE. Patient denies any alc ohol use. Patient has smoked 1 pack per day for 10-15 years, quit 2 years ago. Denies any history of migraines. Patient's blood test shows normal CBC, INR 1.6, PTT 27.0. Chem-20 with mildly elevated AST 38. Troponins are negative. Johnson Virus negative. Review of Systems Headaches, shortness of breath. Denies any problem with the vision. Denies any hoarseness, sore throat, dysphagia. Denies abdominal pain, or vomiting. She does have mild nausea. Denies any photophobia, phonophobia. No previous history of migraines. Past Medical History Past Medical History: COPD, Deep Vein Thrombosis (DVT), Hyperlipidemia, Hypert ension, Myocardial Infarction ([place]), Pneumonia Additional Past Medical History / Comment(s): cardiomyopathy, DVT ( 4 yrs ago), Last Myocardial Infarction Date:: 4 yrs ago History of Any Multi-Drug Resistant Organisms: None Reported Past Surgical History: AICD, Cholecystectomy Additional Past Surgical History / Comment(s): defibrillator Past Anesthesia/Blood Transfusion Reactions: No Reported Reaction Type of Cardiac Device: AICD Device Placement Date:: 2012 Past Psychological History: Anxiety, Depression Smoking Status: Former smoker Past Alcohol Use History: None Reported Past Drug Use History: None Reported - Past Family History Mother Family Medical History: Diabetes Mellitus, Hypertension Father Family Medical History: No Reported History Medications and Allergies Home Medications Medication Instructions Recorded Confirmed Type Amiodarone [Cordarone] 100 mg PO DAILY #90 tab 04/08/20 08/15/20 Rx carvediloL [Coreg] 6.25 mg PO BID-W/MEALS #180 tab 04/08/20 08/15/20 Rx lisinopriL [Zestril] 2.5 mg PO DAILY #90 tab 04/08/20 08/15/20 Rx Warfarin [Coumadin] 5 mg PO W/SUPPER 07/06/20 08/15/20 History Atorvastatin [Lipitor] 40 mg PO HS 08/15/20 08/15/20 History Spironolactone [Aldactone] 25 mg PO HS 08/15/20 08/15/20 History Allergies Allergy/AdvReac Type Severity Reaction Status Date / Time hydromorphone [From Dilaudid] AdvReac Vomiting Verified 08/15/20 11:09 Physical Examination - Vital Signs Vital Signs: Vital Signs Temp Pulse Resp BP Pulse Ox 08/15/20 16:06 90 08/15/20 15:56 90 92 L 08/15/20 13:53 79 18 113/75 92 L 08/15/20 11:32 97.9 F 81 20 128/82 93 L 08/15/20 11:20 81 08/15/20 11:10 84 08/15/20 09:39 97.9 F 95 20 144/96 95 Intake and Output 08/15/20 08/15/20 08/15/20 06:59 14:59 22:59 Other: Weight 90.718 kg On a on examination patient is a middle aged female, in no acute distress. Patient is alert and awake, fully oriented. Speech and language functions are normal. Attention, concentration and fund of knowledge is adequate. On cranial examination pupils are round and reacting to light, visual baker are full on confrontation, with no loss of visual field in any quadrant in either eye. Extraocular muscles are intact with no nystagmus. Face is symmetric, tongue protrudes the midline. Palatal elevation and sensation normal. Hearing and shoulder shrug normal. On muscle strength testing there is no pronator drift and the strength is normal in arms and legs distally and proximally reflexes are 1+ to 2+ and plantars downgoing. Sensory to touch is equal. No ataxia for [id number] testing. Tone and bulk of muscles normal. Gait normal. On general examination, there is no carotid bruit or murmur, peripheral pulses present. Patient has some rhonchi, abdomen soft nontender, peripheral pulses present. Results - Laboratory Findings CBC and BMP: 08/15/20 10:25 08/15/20 10:25 Abnormal Lab Findings: Abnormal Labs 08/15/20 08/15/20 10:25 10:25 PT 15.9 H INR 1.6 H Glucose 112 H AST 38 H Assessment and Plan Assessment: * New onset bifrontal headache since yesterday morning, unclear etiology. Computed tomography scan of the head and CTA of the head showed possibility of suprasellar mass versus thrombosed aneurysm, measuring 1.3 cm x 1.0 cm. Differential also includes meningioma and pituitary tumor. Apparently this was not reported in the previous computed tomography scans, the last one from 12/15/2017. This suggests fairly rapid growth. * COPD exacerbation * Hypertension Plan: * Patient needs further workup for evaluation of suprasellar mass versus thrombosed aneurysm. Patient needs perhaps cerebral angiogram to rule out cerebral aneurysm. If negative, then patient may need an MRI of the brain with and without contrast. However patient has pacemaker, therefore may need special techniques to obtain MRI. As patient is symptomatic (moderate headache), therefore needs urgent evaluation rather than outpatient basis. * For further evaluation of her possible mass versus aneurysm, patient will be transferred to [facility]. I discussed with Dr. Irby, Neurointervention, who agreed to accept the patient.
[2020-08-15 22:36] VITALS: BP 99/71; PULSE 99; RESP 16
--- NOTE | 2020-08-16 20:55 | HP ---
HISTORY AND PHYSICAL DATE OF ADMISSION: 08/15/2020 CHIEF COMPLAINT: Headache. HISTORY OF PRESENT ILLNESS: This lady presented to the emergency room with a headache. She underwent a workup and the plan was that she would be admitted and be seen by Neurology. After she was seen by Neurology, it was his recommendation that she be transferred to a [facility]. Review of systems, past medical history, family history, and personal and social histories were not obtained before the patient was transferred. She has a history of hyperlipidemia, atrial fibrillation, hypertension, atherosclerotic cardiovascular disease, coronary artery disease, cardiomyopathy and depression. Her usual medications include: 1. Lisinopril 2.5 once a day. 2. Atorvastatin 10 mg once a day. 3. Spironolactone 25 once a day. 4. Jantoven 7.5 mg once a day. 5. Carvedilol 6.25 twice a day. 6. Percocet 5 q.4 p.r.n. 7. Xanax 0.5 t.i.d. p.r.n. 8. Trazodone 50 mg at bedtime p.r.n. 9. Amiodarone 200 mg once a day. 10.Ventolin HFA. 11.Advair. She is ALLERGIC TO DILAUDID. Physical examination was deferred. IMPRESSION: 1. Headache, etiology unknown. 2. Possible intracranial aneurysm. 3. Possible intracranial thrombosis. 4. Cardiomyopathy. 5. Atrial fibrillation. 6. Coronary artery disease. PLAN: 1. Bedrest. 2. IV fluids. 3. Neurology consult. MMODL / IJN: [id number] /
--- NOTE | 2020-08-16 23:26 | DS ---
DISCHARGE SUMMARY DATE OF SERVICE: 08/15/2019. CHIEF COMPLAINT: Headache. HISTORY OF PRESENT ILLNESS AND PHYSICAL EXAMINATION: Details of this lady's history and physical can be found in the initial workup. COURSE IN THE HOSPITAL: After admission, she was placed on bedrest, started on intravenous fluids and seen by Neurology and afterwards was recommend she be transferred to [facility] and this was carried out. FINAL DIAGNOSES: 1. Headache. 2. Cardiomyopathy. 3. Coronary artery disease. 4. Atrial fibrillation. 5. Depression. OPERATIONS: None. CONSULTATIONS: Neurology. MMODL / IJN: [id number] /
== END 2020-08-15 23:00 | disposition short-term general hospital (02) | DRG 71 ==
LOC: EC 09:36 → 4SSUR 13:31 → 3SCARD 14:28
PROVIDERS: ADMIT Family Medicine; ATTEND Family Medicine
DX: G93.9 Disorder of brain, unspecified (principal); J44.1 Chronic obstructive pulmonary disease with (acute) exacerbation; I42.9 Cardiomyopathy, unspecified; I67.1 Cerebral aneurysm, nonruptured; Z20.822 Contact with and (suspected) exposure to COVID-19; G43.909 Migraine, unspecified, not intractable, without status migrainosus; I10 Essential (primary) hypertension; E78.5 Hyperlipidemia, unspecified; F32.9 Major depressive disorder, single episode, unspecified; F41.9 Anxiety disorder, unspecified; I25.2 Old myocardial infarction; Z79.01 Long term (current) use of anticoagulants; Z79.899 Other long term (current) drug therapy; Z86.718 Personal history of other venous thrombosis and embolism; Z87.891 Personal history of nicotine dependence; Z87.01 Personal history of pneumonia (recurrent); Z95.810 Presence of automatic (implantable) cardiac defibrillator; Z90.49 Acquired absence of other specified parts of digestive tract; Z88.5 Allergy status to narcotic agent; Z82.49 Family history of ischemic heart disease and other diseases of the circulatory system; Z83.3 Family history of diabetes mellitus; I48.91 Unspecified atrial fibrillation; I25.10 Atherosclerotic heart disease of native coronary artery without angina pectoris
CPT/HCPCS: 36415; 70450; 70496; 71046; 80053; 83605; 83880; 84484; 85025; 85379; 85610; 85730; 87635; 93005; 94640; 94760; 96361; 96374; 96375; 99285

== ENCOUNTER 2020-08-25 02:36 | Emergency (ER) | payer MEDICARE ==
[2020-08-25] MEDS ORDERED: METOCLOPRAMIDE 5 MG/ML 2 ML VIAL IVP STA (03:00)
[2020-08-25] MEDS ORDERED: MORPHINE SULFATE 4 MG/ML SYRINGE IV STA (03:08)
--- NOTE | 2020-08-25 03:20 | ED ---
Nausea/Vomiting/Diarrhea HPI - General Chief complaint: Nausea/Vomiting/Diarrhea Stated complaint: SOB, vomiting Time Seen by Provider: 08/25/20 02:58 Source: patient Mode of arrival: wheelchair Limitations: no limitations - History of Present Illness Initial comments: This patient is 55-year-old woman who presents with constellation of symptoms that have started coming on over the course evening. The patient states that she initially was having a bit of a headache. She states that this was then followed by a bit of cough and a feeling like she was having a recurrence of bronchitis which she tends to get. She then had nausea and vomiting come on and this was the main thing that led her to come here. She states she was unable to keep anything down. There is no accompanying abdominal pain. There is no change in bowel movements or urination. Patient also noted she felt hot. MD complaint: nausea, vomiting -: hour(s) Description of Vomiting: food contents Associated Abdominal Pain: No Radiation: none Improves with: none Worsens with: none Associated Symptoms: shortness of breath - Related Data Home Medications Medication Instructions Recorded Confirmed Warfarin [Coumadin] 5 mg PO W/SUPPER 07/06/20 08/15/20 Atorvastatin [Lipitor] 40 mg PO HS 08/15/20 08/15/20 Spironolactone [Aldactone] 25 mg PO HS 08/15/20 08/15/20 Previous Rx's Medication Instructions Recorded Amiodarone [Cordarone] 100 mg PO DAILY #90 tab 04/08/20 carvediloL [Coreg] 6.25 mg PO BID-W/MEALS #180 tab 04/08/20 lisinopriL [Zestril] 2.5 mg PO DAILY #90 tab 04/08/20 Amoxicillin/Potassium Clav 1 tab PO Q12HR 1 Days #14 tab 08/25/20 [Augmentin 875-125 Tablet] Allergies Allergy/AdvReac Type Severity Reaction Status Date / Time hydromorphone [From Dilaudid] AdvReac Vomiting Verified 08/25/20 02:40 Review of Systems ROS Statement: Those systems with pertinent positive or pertinent negative responses have been documented in the HPI. ROS Other: All systems not noted in ROS Statement are negative. Constitutional: Reports: fever. Denies: chills, weakness ENT: Denies: ear pain, throat pain, congestion Respiratory: Reports: cough. Denies: dyspnea, wheezes, hemoptysis Cardiovascular: Reports: palpitations. Denies: chest pain, orthopnea, edema, syncope Gastrointestinal: Reports: nausea, vomiting. Denies: abdominal pain, diarrhea, constipation, hematemesis, melena, hematochezia Genitourinary: Reports: frequency. Denies: dysuria, hematuria Musculoskeletal: Denies: back pain Skin: Denies: rash Neurological: Denies: headache, weakness, numbness Past Medical History Past Medical History: COPD, Deep Vein Thrombosis (DVT), Hyperlipidemia, Hypertension, Myocardial Infarction ([place]), Pneumonia Additional Past Medical History / Comment(s): cardiomyopathy, DVT ( 4 yrs ago), brain aneursym Last Myocardial Infarction Date:: 4 yrs ago History of Any Multi-Drug Resistant Organisms: None Reported Past Surgical History: AICD, Cholecystectomy Additional Past Surgical History / Comment(s): defibrillator Past Anesthesia/Blood Transfusion Reactions: No Reported Reaction Type of Cardiac Device: AICD Device Placement Date:: 2012 Past Psychological History: Anxiety, Depression Smoking Status: Former smoker Past Alcohol Use History: None Reported Past Drug Use History: None Reported - Past Family History Mother Family Medical History: Diabetes Mellitus, Hypertension Father Family Medical History: No Reported History General Exam Limitations: no limitations General appearance: alert, in no apparent distress Head exam: Present: atraumatic, normocephalic Eye exam: Present: normal appearance. Absent: scleral icterus, conjunctival injection ENT exam: Present: normal oropharynx Neck exam: Present: normal inspection, full ROM. Absent: tenderness, meningis mus Respiratory exam: Present: respiratory distress (Mild tachypnea), wheezes. Absent: rales, rhonchi, stridor Cardiovascular Exam: Present: normal rhythm, tachycardia, normal heart sounds. Absent: systolic murmur, diastolic murmur, rubs, gallop GI/Abdominal exam: Present: soft. Absent: distended, tenderness, guarding, r ebound, rigid, mass, pulsatile mass, hernia Extremities exam: Present: normal inspection, normal capillary refill. Absent: pedal edema, calf tenderness Back exam: Present: normal inspection. Absent: CVA tenderness (R), CVA tenderness (L) Neurological exam: Present: alert, oriented X3. Absent: motor sensory deficit Skin exam: Present: warm, dry, intact, normal color. Absent: rash Course Vital Signs 08/25/20 08/25/20 08/25/20 02:40 03:00 04:22 Temperature 100.6 F H 99.6 F 98.9 F Pulse Rate 124 H 121 H 110 H Respiratory 30 H 26 H 20 Rate Blood Pressure 119/76 124/80 115/82 O2 Sat by Pulse 95 98 96 Oximetry 08/25/20 04:50 Temperature Pulse Rate 98 Respiratory Rate Blood Pressure O2 Sat by Pulse 94 L Oximetry Medical Decision Making - Medical Decision Making Patient's 55-year-old woman presenting with constellation of symptoms that most remind her of recurrence of bronchitis which she tends to get. She did have marked improvement following antibiotic. The headache had resolved, the nausea and vomiting had resolved as well. Given her underlying cardiomyopathy, discussed admission overnight, but the patient is feeling much better and wants go home. Given that symptoms are similar to previous bronchitis, she is given dose of steroids, she is given antibiotic coverage for both possible pulmonary and also for urine. Patient urged to have low threshold to return here, appropriate further care and follow-up as well as return parameters discussed. - Lab Data Result diagrams: 08/25/20 03:10 08/25/20 03:10 Lab Results 08/25/20 08/25/20 08/25/20 Range/Units 03:10 03:10 03:10 WBC 9.0 (3.8-10.6) k/uL RBC 5.05 (3.80-5.40) m/uL Hgb 15.0 (11.4-16.0) gm/dL Hct 43.6 (34.0-46.0) % MCV 86.3 (80.0-100.0) fL MCH 29.8 (25.0-35.0) pg MCHC 34.5 (31.0-37.0) g/dL RDW 14.6 (11.5-15.5) % Plt Count 167 (150-450) k/uL MPV 8.6 Neutrophils % 84 % Lymphocytes % 10 % Monocytes % 3 % Eosinophils % 2 % Basophils % 0 % Neutrophils # 7.6 (1.3-7.7) k/uL Lymphocytes # 0.9 L (1.0-4.8) k/uL Monocytes # 0.3 (0-1.0) k/uL Eosinophils # 0.2 (0-0.7) k/uL Basophils # 0.0 (0-0.2) k/uL PT 14.0 H (9.0-12.0) sec INR 1.4 H (<1.2) APTT 22.6 (22.0-30.0) sec Sodium (137-145) mmol/L Potassium (3.5-5.1) mmol/L Chloride (98-107) mmol/L Carbon Dioxide (22-30) mmol/L Anion Gap mmol/L BUN (7-17) mg/dL Creatinine (0.52-1.04) mg/dL Est GFR (CKD-EPI)AfAm (>60 ml/min/1.73 sqM) Est GFR (CKD-EPI)NonAf (>60 ml/min/1.73 sqM) Glucose (74-99) mg/dL Plasma Lactic Acid Carlos Eduardo (0.7-2.0) mmol/L Calcium (8.4-10.2) mg/dL Magnesium (1.6-2.3) mg/dL Total Bilirubin (0.2-1.3) mg/dL AST (14-36) U/L ALT (4-34) U/L Alkaline Phosphatase (38-126) U/L Troponin I (0.000-0.034) ng/mL NT-Pro-B Natriuret Pep pg/mL Total Protein (6.3-8.2) g/dL Albumin (3.5-5.0) g/dL Urine Color Yellow Urine Appearance Cloudy H (Clear) Urine pH 5.5 (5.0-8.0) Ur Specific Strum 1.019 (1.001-1.035) Urine Protein Trace H (Negative) Urine Glucose (UA) Negative (Negative) Urine Ketones Negative (Negative) Urine Blood Small H (Negative) Urine Nitrite Negative (Negative) Urine Bilirubin Negative (Negative) Urine Urobilinogen <2.0 (<2.0) mg/dL Ur Leukocyte Esterase Large H (Negative) Urine RBC 10 H (0-5) /hpf Urine WBC 152 H (0-5) /hpf Ur Squamous Epith Cells <1 (0-4) /hpf Urine Bacteria Rare H (None) /hpf Urine Mucus Rare H (None) /hpf Coronavirus (PCR) (Not Detectd) 08/25/20 08/25/20 08/25/20 Range/Units 03:10 03:10 03:10 WBC (3.8-10.6) k/uL RBC (3.80-5.40) m/uL Hgb (11.4-16.0) gm/dL Hct (34.0-46.0) % MCV (80.0-100.0) fL MCH (25.0-35.0) pg MCHC (31.0-37.0) g/dL RDW (11.5-15.5) % Plt Count (150-450) k/uL MPV Neutrophils % % Lymphocytes % % Monocytes % % Eosinophils % % Basophils % % Neutrophils # (1.3-7.7) k/uL Lymphocytes # (1.0-4.8) k/uL Monocytes # (0-1.0) k/uL Eosinophils # (0-0.7) k/uL Basophils # (0-0.2) k/uL PT (9.0-12.0) sec INR (<1.2) APTT (22.0-30.0) sec Sodium 142 (137-145) mmol/L Potassium 3.6 (3.5-5.1) mmol/L Chloride 107 (98-107) mmol/L Carbon Dioxide 26 (22-30) mmol/L Anion Gap 9 mmol/L BUN 11 (7-17) mg/dL Creatinine 0.85 (0.52-1.04) mg/dL Est GFR (CKD-EPI)AfAm 89 (>60 ml/min/1.73 sqM) Est GFR (CKD-EPI)NonAf 77 (>60 ml/min/1.73 sqM) Glucose 82 (74-99) mg/dL Plasma Lactic Acid Carlos Eduardo 1.8 (0.7-2.0) mmol/L Calcium 9.3 (8.4-10.2) mg/dL Magnesium 1.8 (1.6-2.3) mg/dL Total Bilirubin 0.4 (0.2-1.3) mg/dL AST 20 (14-36) U/L ALT 20 (4-34) U/L Alkaline Phosphatase 101 (38-126) U/L Troponin I <0.012 (0.000-0.034) ng/mL NT-Pro-B Natriuret Pep pg/mL Total Protein 7.0 (6.3-8.2) g/dL Albumin 4.1 (3.5-5.0) g/dL Urine Color Urine Appearance (Clear) Urine pH (5.0-8.0) Ur Specific Strum (1.001-1.035) Urine Protein (Negative) Urine Glucose (UA) (Negative) Urine Ketones (Negative) Urine Blood (Negative) Urine Nitrite (Negative) Urine Bilirubin (Negative) Urine Urobilinogen (<2.0) mg/dL Ur Leukocyte Esterase (Negative) Urine RBC (0-5) /hpf Urine WBC (0-5) /hpf Ur Squamous Epith Cells (0-4) /hpf Urine Bacteria (None) /hpf Urine Mucus (None) /hpf Coronavirus (PCR) (Not Detectd) 08/25/20 08/25/20 Range/Units 03:10 03:12 WBC (3.8-10.6) k/uL RBC (3.80-5.40) m/uL Hgb (11.4-16.0) gm/dL Hct (34.0-46.0) % MCV (80.0-100.0) fL MCH (25.0-35.0) pg MCHC (31.0-37.0) g/dL RDW (11.5-15.5) % Plt Count (150-450) k/uL MPV Neutrophils % % Lymphocytes % % Monocytes % % Eosinophils % % Basophils % % Neutrophils # (1.3-7.7) k/uL Lymphocytes # (1.0-4.8) k/uL Monocytes # (0-1.0) k/uL Eosinophils # (0-0.7) k/uL Basophils # (0-0.2) k/uL PT (9.0-12.0) sec INR (<1.2) APTT (22.0-30.0) sec Sodium (137-145) mmol/L Potassium (3.5-5.1) mmol/L Chloride (98-107) mmol/L Carbon Dioxide (22-30) mmol/L Anion Gap mmol/L BUN (7-17) mg/dL Creatinine (0.52-1.04) mg/dL Est GFR (CKD-EPI)AfAm (>60 ml/min/1.73 sqM) Est GFR (CKD-EPI)NonAf (>60 ml/min/1.73 sqM) Glucose (74-99) mg/dL Plasma Lactic Acid Carlos Eduardo (0.7-2.0) mmol/L Calcium (8.4-10.2) mg/dL Magnesium (1.6-2.3) mg/dL Total Bilirubin (0.2-1.3) mg/dL AST (14-36) U/L ALT (4-34) U/L Alkaline Phosphatase (38-126) U/L Troponin I (0.000-0.034) ng/mL NT-Pro-B Natriuret Pep 124 pg/mL Total Protein (6.3-8.2) g/dL Albumin (3.5-5.0) g/dL Urine Color Urine Appearance (Clear) Urine pH (5.0-8.0) Ur Specific Strum (1.001-1.035) Urine Protein (Negative) Urine Glucose (UA) (Negative) Urine Ketones (Negative) Urine Blood (Negative) Urine Nitrite (Negative) Urine Bilirubin (Negative) Urine Urobilinogen (<2.0) mg/dL Ur Leukocyte Esterase (Negative) Urine RBC (0-5) /hpf Urine WBC (0-5) /hpf Ur Squamous Epith Cells (0-4) /hpf Urine Bacteria (None) /hpf Urine Mucus (None) /hpf Coronavirus (PCR) Not Detected (Not Detectd) - EKG Data -: EKG Interpreted by Me (Patient's previous ECGs show paced rhythm, and this ECG appears similar tho) EKG shows normal: QRS complexes (Wide QRS complexes.) Rate: tachycardia (Rate approximately 117 bpm) Disposition Clinical Impression: Nausea & vomiting, Urinary tract infection Disposition: ADMITTED IP TO THIS HOSP Condition: Good Instructions (If sedation given, give patient instructions): Urinary Tract Infection in Women (DC), Acute Nausea and Vomiting (ED) Prescriptions: Amoxicillin/Potassium Clav [Augmentin 875-125 Tablet] 1 tab PO Q12HR 1 Days #14 tab Is patient prescribed a controlled substance at d/c from ED?: No Referrals: Daniel Mosqueda MD [Primary Care Provider] - 1-2 days
[2020-08-25 03:34] LABS: Basophils % (A) 0 %; Eosinophils # (A) 0.2 k/uL (0-0.7); Eosinophils % (A) 2 %; HCT 43.6 % (34.0-46.0); Lymphocytes # (A) 0.9 k/uL (1.0-4.8); Lymphocytes % (A) 10 %; MCH 29.8 pg (25.0-35.0); MCHC 34.5 g/dL (31.0-37.0); MCV 86.3 fL (80.0-100.0); Mean Platelet Volume 8.6; Monocytes # (A) 0.3 k/uL (0-1.0); Monocytes % (A) 3 %; Neutrophils # (A) 7.6 k/uL (1.3-7.7); Neutrophils % (A) 84 %; Platelet Count 167 k/uL (150-450); RBC 5.05 m/uL (3.80-5.40); RDW 14.6 % (11.5-15.5)
[2020-08-25 03:46] LABS: Albumin 4.1 g/dL (3.5-5.0); Calcium 9.3 mg/dL (8.4-10.2); Magnesium 1.8 mg/dL (1.6-2.3); Total Bilirubin 0.4 mg/dL (0.2-1.3)
[2020-08-25 03:52] LABS: INR 1.4 (<1.2); Partial Thromboplastin Time 22.6 sec (22.0-30.0)
--- NOTE | 2020-08-25 04:02 | XR ---
EXAM: XR Chest, 2 Views CLINICAL HISTORY: ITS.REASON XR Reason: Fever TECHNIQUE: Frontal and lateral views of the chest. COMPARISON: 08/15/2020 FINDINGS: Lungs: Subsegmental opacity involving the right lower lobe appears to be new from the previous examination. The lungs are otherwise well aerated. The pulmonary vasculature demonstrates no significant radiographic abnormality. Pleural space: Unremarkable. No pneumothorax. No large pleural effusion. Heart: The cardiac silhouette is within normal limits. Mediastinum: Unremarkable. No significant abnormality identified. The trachea is midline. Bones/joints: Unremarkable. Tubes, lines and devices: Left subclavian defibrillator pacer leads are stable in appearance. IMPRESSION: Subsegmental opacity involving the right lower lobe appears to be new from the previous examination. Subsegmental atelectasis or pneumonia are the primary considerations. The lungs are otherwise well aerated. No large pleural effusion or pneumothorax.
[2020-08-25 04:14] LABS: Potassium 3.6 mmol/L (3.5-5.1)
[2020-08-25 04:17] LABS: Appearance,Urine Cloudy (Clear); Bacteria,Urine Rare /hpf; Bilirubin,Urine Negative (Negative); Blood,Urine Small (Negative); Color,Urine Yellow; Glucose,Urine (UA) Negative (Negative); Ketones,Urine Negative (Negative); Leukocyte Esterase,Urine Large (Negative); Mucus,Urine Rare /hpf; Nitrite,Urine Negative (Negative); PH, Urine 5.5 (5.0-8.0); Protein,Urine Trace (Negative); RBC,Urine 10 /hpf (0-5); Specific Gravity,Urine 1.019 (1.001-1.035); Squamous Epithelial Cell,Urine <1 /hpf (0-4); Urobilinogen,Urine <2.0 mg/dL (<2.0); WBC,Urine 152 /hpf (0-5)
[2020-08-25 04:24] VITALS: BP 115/82; RESP 20; TEMP 98.9
[2020-08-25] MEDS: LEVOFLOXACIN 750 MG TAB PO STA ×2 (04:35→04:36)
[2020-08-25] MEDS ORDERED: AZITHROMYCIN 500 MG TAB PO STA (04:37)
[2020-08-25] MEDS ORDERED: predniSONE 20 MG TAB PO STA (04:37)
[2020-08-25 04:50] VITALS: PULSE 98
== END 2020-08-25 05:00 | disposition other institution (70) ==
LOC: EC 02:36
DX: N39.0 Urinary tract infection, site not specified (principal); R11.2 Nausea with vomiting, unspecified; R00.0 Tachycardia, unspecified; R06.82 Tachypnea, not elsewhere classified; R51.9 Headache, unspecified; R05 Cough; E78.5 Hyperlipidemia, unspecified; I10 Essential (primary) hypertension; I25.2 Old myocardial infarction; Z20.822 Contact with and (suspected) exposure to COVID-19; Z79.899 Other long term (current) drug therapy; Z79.01 Long term (current) use of anticoagulants; Z87.891 Personal history of nicotine dependence; Z90.49 Acquired absence of other specified parts of digestive tract; Z86.718 Personal history of other venous thrombosis and embolism; Z88.8 Allergy status to other drugs, medicaments and biological substances; Z95.810 Presence of automatic (implantable) cardiac defibrillator
CPT/HCPCS: 36415; 93005; 83880; 80053; 83605; 83735; 84484; 85025; 85610; 85730; 81001; 87040; 87086; 87635; 71046; 99285; 96374; 96375; J2270; J2765; J7512

== ENCOUNTER 2020-08-28 02:53 | Observation (INO) | payer MEDICARE ==
[2020-08-28] MEDS ORDERED: SODIUM CHLORIDE 0.9% 500 ML 500 ML IV STA (03:11)
[2020-08-28] MEDS ORDERED: ACETAMINOPHEN TAB 325 MG TAB PO STA (03:12)
[2020-08-28] MEDS ORDERED: ONDANSETRON 4 MG/2 ML VIAL IVP STA (03:21)
[2020-08-28 03:54] LABS: Basophils # (A) 0.1 k/uL (0-0.2); Basophils % (A) 1 %; Eosinophils # (A) 0.1 k/uL (0-0.7); Eosinophils % (A) 2 %; HCT 41.7 % (34.0-46.0); HGB 14.3 gm/dL (11.4-16.0); Lymphocytes # (A) 1.1 k/uL (1.0-4.8); Lymphocytes % (A) 13 %; MCH 29.8 pg (25.0-35.0); MCHC 34.3 g/dL (31.0-37.0); MCV 86.8 fL (80.0-100.0); Mean Platelet Volume 8.3; Monocytes # (A) 0.6 k/uL (0-1.0); Monocytes % (A) 7 %; Neutrophils # (A) 6.3 k/uL (1.3-7.7); Neutrophils % (A) 77 %; Platelet Count 144 k/uL (150-450); Poikilocytosis Slight; RBC 4.81 m/uL (3.80-5.40); RDW 14.7 % (11.5-15.5); WBC 8.2 k/uL (3.8-10.6)
[2020-08-28 04:04] LABS: ALT 31 U/L (4-34); AST 42 U/L (14-36); African American GFR (CKD) >90 (>60 ml/min/1.73 sqM); Albumin 4.5 g/dL (3.5-5.0); Alkaline Phosphatase 101 U/L (38-126); Anion Gap 10 mmol/L; Blood Urea Nitrogen 12 mg/dL (7-17); Calcium 9.7 mg/dL (8.4-10.2); Carbon Dioxide 23 mmol/L (22-30); Chloride 106 mmol/L (98-107); Glucose 112 mg/dL (74-99); Non-African American GFR(CKD) >90 (>60 ml/min/1.73 sqM); Sodium 139 mmol/L (137-145); Total Bilirubin 1.4 mg/dL (0.2-1.3); Total Protein 8.2 g/dL (6.3-8.2)
--- NOTE | 2020-08-28 04:10 | XR ---
EXAM: XR Chest, 2 Views CLINICAL HISTORY: ITS.REASON XR Reason: pain TECHNIQUE: Frontal and lateral views of the chest. COMPARISON: 08/15/2020 FINDINGS: Lungs: No consolidation or mass. Pleural space: No effusion. Heart: No cardiomegaly. Pacer device. Bones/joints: No acute findings. IMPRESSION: No acute cardiopulmonary process.
[2020-08-28 04:16] LABS: Appearance,Urine Clear (Clear); Bacteria,Urine Rare /hpf; Bilirubin,Urine Negative (Negative); Blood,Urine Small (Negative); Color,Urine Yellow; Glucose,Urine (UA) Negative (Negative); Ketones,Urine Negative (Negative); Leukocyte Esterase,Urine Moderate (Negative); Mucus,Urine Rare /hpf; Nitrite,Urine Negative (Negative); PH, Urine 5.5 (5.0-8.0); Protein,Urine 1+ (Negative); RBC,Urine 4 /hpf (0-5); Specific Gravity,Urine 1.019 (1.001-1.035); Squamous Epithelial Cell,Urine 3 /hpf (0-4); Urobilinogen,Urine <2.0 mg/dL (<2.0); WBC,Urine 5 /hpf (0-5)
[2020-08-28 04:17] LABS: Potassium 5.4 mmol/L (3.5-5.1)
[2020-08-28] MEDS ORDERED: AZITHROMYCIN 500 MG TAB PO STA (04:39)
[2020-08-28] MEDS ORDERED: KETOROLAC 15 MG/ML 1 ML VIAL IVP STA (04:46)
--- NOTE | 2020-08-28 04:57 | ED ---
Nausea/Vomiting/Diarrhea HPI - General Chief complaint: Nausea/Vomiting/Diarrhea Stated complaint: Nausea, vomiting, headache Time Seen by Provider: 08/28/20 03:04 Source: patient Mode of arrival: ambulatory Limitations: no limitations - History of Present Illness Initial comments: This patient is a 55-year-old woman who returns to the hospital for reevaluation tonight. She has been having fevers and chills, and little bit of cough. She initially felt that this was similar to previous bronchitis. She was seen here on for were seventh, at which time she did not want stay and went home with prescription for Augmentin which she states she has been taking twice daily as prescribed. The patient states she is not feeling any better and in fact that her nausea and vomiting has recurred. The patient continues to deny any abdominal pain. She is not having change in bowel movements or urination. From the patient's earlier visit, she had been found to have large number of white blood cells in the urine, she also was noted to possibly have small right lower lobe infiltrate. The patient does continue to have a little bit of cough. She states she is not having any urinary symptoms whatsoever now. MD complaint: nausea, vomiting -: days(s) Description of Vomiting: food contents Associated Abdominal Pain: No Radiation: none Improves with: none Worsens with: none Associated Symptoms: myalgias, cough, fever/chills, headaches, nausea/vomiting - Related Data Home Medications Medication Instructions Recorded Confirmed Warfarin [Coumadin] 5 mg PO W/SUPPER 07/06/20 08/15/20 Atorvastatin [Lipitor] 40 mg PO HS 08/15/20 08/15/20 Spironolactone [Aldactone] 25 mg PO HS 08/15/20 08/15/20 Previous Rx's Medication Instructions Recorded Amiodarone [Cordarone] 100 mg PO DAILY #90 tab 04/08/20 carvediloL [Coreg] 6.25 mg PO BID-W/MEALS #180 tab 04/08/20 lisinopriL [Zestril] 2.5 mg PO DAILY #90 tab 04/08/20 Amoxicillin/Potassium Clav 1 tab PO Q12HR 1 Days #14 tab 08/25/20 [Augmentin 875-125 Tablet] Allergies Allergy/AdvReac Type Severity Reaction Status Date / Time hydromorphone [From Dilaudid] AdvReac Vomiting Verified 08/28/20 02:59 Review of Systems ROS Statement: Those systems with pertinent positive or pertinent negative responses have been documented in the HPI. ROS Other: All systems not noted in ROS Statement are negative. Constitutional: Reports: fever, chills. Denies: weakness Eyes: Denies: eye pain, vision change ENT: Denies: ear pain, throat pain, congestion Respiratory: Denies: cough, dyspnea, wheezes Cardiovascular: Reports: palpitations. Denies: chest pain, edema, syncope Gastrointestinal: Reports: nausea, vomiting. Denies: abdominal pain, diarrhea, constipation, hematemesis, melena, hematochezia Genitourinary: Denies: urgency, dysuria, frequency, hematuria Musculoskeletal: Reports: myalgia. Denies: back pain Skin: Denies: rash Neurological: Reports: headache. Denies: weakness, numbness, paresthesias Past Medical History Past Medical History: COPD, Deep Vein Thrombosis (DVT), Hyperlipidemia, Hypertension, Myocardial Infarction ([place]), Pneumonia Additional Past Medical History / Comment(s): cardiomyopathy, DVT ( 4 yrs ago), brain aneursym Last Myocardial Infarction Date:: 4 yrs ago History of Any Multi-Drug Resistant Organisms: None Reported Past Surgical History: AICD, Cholecystectomy Additional Past Surgical History / Comment(s): defibrillator Past Anesthesia/Blood Transfusion Reactions: No Reported Reaction Type of Cardiac Device: AICD Device Placement Date:: 2012 Past Psychological History: Anxiety, Depression Smoking Status: Former smoker Past Alcohol Use History: None Reported Past Drug Use History: None Reported - Past Family History Mother Family Medical History: Diabetes Mellitus, Hypertension Father Family Medical History: No Reported History General Exam Limitations: no limitations General appearance: alert, in no apparent distress Head exam: Present: atraumatic, normocephalic Eye exam: Present: normal appearance, PERRL, EOMI. Absent: scleral icterus, conjunctival injection ENT exam: Present: normal oropharynx Neck exam: Present: full ROM. Absent: tenderness, meningismus Respiratory exam: Present: normal lung sounds bilaterally. Absent: respiratory distress, wheezes, rales, rhonchi, stridor Cardiovascular Exam: Present: normal rhythm, tachycardia, systolic murmur (Grade 2/6 systolic ejection murmur). Absent: diastolic murmur, rubs, gallop GI/Abdominal exam: Present: soft. Absent: distended, tenderness, guarding, rebound, rigid, mass, pulsatile mass, hernia Extremities exam: Present: normal inspection, normal capillary refill. Absent: pedal edema, calf tenderness Back exam: Present: normal inspection. Absent: CVA tenderness (R), CVA tenderness (L) Neurological exam: Present: alert Skin exam: Present: warm, dry, intact, normal color. Absent: rash Course Vital Signs 08/28/20 08/28/20 02:57 04:41 Temperature 100.3 F H 98.7 F Pulse Rate 145 H 105 H Respiratory 20 22 Rate Blood Pressure 174/116 129/62 O2 Sat by Pulse 94 L 94 L Oximetry Medical Decision Making - Medical Decision Making This patient is a 55-year-old woman presenting for reevaluation of fever as well as nausea and vomiting and headache. The workup today does not reveal definite etiology of her fever. Her apparent urinary tract infection has cleared. The right lower lobe infiltrate on previous exam, was not noted by radiology however there may still be a remainder of it per my read. Given the patient's headache, I discussed lumbar puncture, and at this point the patient is preferring to not have the study and would like opinion of infectious disease talent development consultant. Discussed risks and benefits, but at this point she would wait. - Lab Data Result diagrams: 08/28/20 03:33 08/28/20 03:33 Lab Results 08/28/20 08/28/20 08/28/20 Range/Units 03:33 03:33 03:33 WBC 8.2 (3.8-10.6) k/uL RBC 4.81 (3.80-5.40) m/uL Hgb 14.3 (11.4-16.0) gm/dL Hct 41.7 (34.0-46.0) % MCV 86.8 (80.0-100.0) fL MCH 29.8 (25.0-35.0) pg MCHC 34.3 (31.0-37.0) g/dL RDW 14.7 (11.5-15.5) % Plt Count 144 L (150-450) k/uL MPV 8.3 Neutrophils % 77 % Lymphocytes % 13 % Monocytes % 7 % Eosinophils % 2 % Basophils % 1 % Neutrophils # 6.3 (1.3-7.7) k/uL Lymphocytes # 1.1 (1.0-4.8) k/uL Monocytes # 0.6 (0-1.0) k/uL Eosinophils # 0.1 (0-0.7) k/uL Basophils # 0.1 (0-0.2) k/uL Poikilocytosis Slight Sodium 139 (137-145) mmol/L Potassium 5.4 H (3.5-5.1) mmol/L Chloride 106 (98-107) mmol/L Carbon Dioxide 23 (22-30) mmol/L Anion Gap 10 mmol/L BUN 12 (7-17) mg/dL Creatinine 0.73 (0.52-1.04) mg/dL Est GFR (CKD-EPI)AfAm >90 (>60 ml/min/1.73 sqM) Est GFR (CKD-EPI)NonAf >90 (>60 ml/min/1.73 sqM) Glucose 112 H (74-99) mg/dL Calcium 9.7 (8.4-10.2) mg/dL Total Bilirubin 1.4 H (0.2-1.3) mg/dL AST 42 H (14-36) U/L ALT 31 (4-34) U/L Alkaline Phosphatase 101 (38-126) U/L Total Protein 8.2 (6.3-8.2) g/dL Albumin 4.5 (3.5-5.0) g/dL Urine Color Urine Appearance (Clear) Urine pH (5.0-8.0) Ur Specific [place] (1.001-1.035) Urine Protein (Negative) Urine Glucose (UA) (Negative) Urine Ketones (Negative) Urine Blood (Negative) Urine Nitrite (Negative) Urine Bilirubin (Negative) Urine Urobilinogen (<2.0) mg/dL Ur Leukocyte Esterase (Negative) Urine RBC (0-5) /hpf Urine WBC (0-5) /hpf Ur Squamous Epith Cells (0-4) /hpf Urine Bacteria (None) /hpf Urine Mucus (None) /hpf Coronavirus (PCR) Not Detected (Not Detectd) 08/28/20 Range/Units 03:53 WBC (3.8-10.6) k/uL RBC (3.80-5.40) m/uL Hgb (11.4-16.0) gm/dL Hct (34.0-46.0) % MCV (80.0-100.0) fL MCH (25.0-35.0) pg MCHC (31.0-37.0) g/dL RDW (11.5-15.5) % Plt Count (150-450) k/uL MPV Neutrophils % % Lymphocytes % % Monocytes % % Eosinophils % % Basophils % % Neutrophils # (1.3-7.7) k/uL Lymphocytes # (1.0-4.8) k/uL Monocytes # (0-1.0) k/uL Eosinophils # (0-0.7) k/uL Basophils # (0-0.2) k/uL Poikilocytosis Sodium (137-145) mmol/L Potassium (3.5-5.1) mmol/L Chloride (98-107) mmol/L Carbon Dioxide (22-30) mmol/L Anion Gap mmol/L BUN (7-17) mg/dL Creatinine (0.52-1.04) mg/dL Est GFR (CKD-EPI)AfAm (>60 ml/min/1.73 sqM) Est GFR (CKD-EPI)NonAf (>60 ml/min/1.73 sqM) Glucose (74-99) mg/dL Calcium (8.4-10.2) mg/dL Total Bilirubin (0.2-1.3) mg/dL AST (14-36) U/L ALT (4-34) U/L Alkaline Phosphatase (38-126) U/L Total Protein (6.3-8.2) g/dL Albumin (3.5-5.0) g/dL Urine Color Yellow Urine Appearance Clear (Clear) Urine pH 5.5 (5.0-8.0) Ur Specific [place] 1.019 (1.001-1.035) Urine Protein 1+ H (Negative) Urine Glucose (UA) Negative (Negative) Urine Ketones Negative (Negative) Urine Blood Small H (Negative) Urine Nitrite Negative (Negative) Urine Bilirubin Negative (Negative) Urine Urobilinogen <2.0 (<2.0) mg/dL Ur Leukocyte Esterase Moderate H (Negative) Urine RBC 4 (0-5) /hpf Urine WBC 5 (0-5) /hpf Ur Squamous Epith Cells 3 (0-4) /hpf Urine Bacteria Rare H (None) /hpf Urine Mucus Rare H (None) /hpf Coronavirus (PCR) (Not Detectd) - EKG Data -: EKG Interpreted by Me EKG shows normal: sinus rhythm, intervals (QRS duration 146 ms, consistent with the left bundle-branch block), QRS complexes ((Bundle-branch block) Rate: tachycardia (Rate 127 bpm) Disposition Clinical Impression: Fever, Nausea & vomiting, Headache Disposition: ADMITTED IP TO THIS HOSP Condition: Undetermined Is patient prescribed a controlled substance at d/c from ED?: No
[2020-08-28] MEDS ORDERED: MORPHINE SULFATE 4 MG/ML SYRINGE IV STA (05:02)
--- NOTE | 2020-08-28 05:38 | CT ---
EXAM: CT Head Without Intravenous Contrast CLINICAL HISTORY: ITS.REASON CT Reason: headache TECHNIQUE: Axial computed tomography images of the head/brain without intravenous contrast. CTDI is 49.27 mGy and DLP is 1202.4 mGy-cm. This CT exam was performed using one or more of the following dose reduction techniques: automated exposure control, adjustment of the mA and/or kV according to patient size, and/or use of iterative reconstruction technique. COMPARISON: 08/15/2020 IMPRESSION: 1. No acute hemorrhage, hydrocephalus, or herniation. 2. Redemonstration of the suspected mass/aneurysm measuring 11 mm near the left ICA/suprasellar region versus pituitary mass.
[2020-08-28] MEDS ORDERED: DOCUSATE 100 MG CAP PO PRN (05:59)
[2020-08-28] MEDS ORDERED: MAGNESIUM HYDROXIDE 2,400 MG/10 ML CUP PO PRN (05:59)
[2020-08-28] MEDS ORDERED: NALOXONE 0.4 MG/ML 1 ML VIAL IV PRN (05:59)
[2020-08-28] MEDS: SODIUM CHLORIDE 0.9% 1,000 ML IV SCH (07:30)
[2020-08-28] MEDS: FAMOTIDINE 20 MG TAB PO SCH ×2 (09:35→22:24)
[2020-08-28] MEDS: ACETAMINOPHEN TAB 325 MG TAB PO PRN ×3 (10:43→22:24)
[2020-08-28] MEDS: MORPHINE SULFATE 4 MG/ML SYRINGE IV PRN ×4 (10:44→22:25)
[2020-08-28 11:19] LABS: INR 1.3 (<1.2)
[2020-08-28 14:02] LABS: C Reactive Protein 63.7 mg/L (<10.0)
[2020-08-28] MEDS: carvediloL 6.25 MG TAB PO SCH (16:52)
[2020-08-28] MEDS ORDERED: WARFARIN 5 MG TAB PO ONE (18:00)
[2020-08-28] MEDS: ONDANSETRON 4 MG/2 ML VIAL IVP PRN (18:14)
--- NOTE | 2020-08-28 18:29 | HP ---
HISTORY AND PHYSICAL CHIEF COMPLAINT: Persistent and severe headache with fever. HISTORY OF PRESENT ILLNESS: This is another admission for this 55-year-old white female. She was in the hospital recently and admitted with a headache and there was a question of a possible central nervous system lesion which was thought to possibly be an aneurysm. She was shipped out to a [facility]. It is not known what her workup entailed or what happened. However, she came back to town. She has been in and out of the emergency room recently with headaches and she has had 3 COVID swabs, all of which have been negative. She has had no focal neurologic changes, difficulty with vision or hearing, speech issues, etc. She has refused a lumbar puncture. She has had no cough, sputum production, abdominal pain, nausea, vomiting, diarrhea, melena, incontinence, frequency, urgency, dysuria, hematuria, etc. REVIEW OF SYSTEMS: Review of systems is otherwise unremarkable. Past medical history, family history, and personal and social histories reveal that she has a history of cardiomyopathy and she has atrial fibrillation. She has a history of hypertension, hyperlipidemia, congestive heart failure, pulmonary embolism, coronary artery disease, and she is a smoker. Medications can be found in the med rec portion of her chart. She is ALLERGIC to DILAUDID. She does continue to smoke. PHYSICAL EXAMINATION: Blood pressure is 121/85 with a pulse of 96, irregularly irregular. Respirations were 32. Temperature was 99.9. In general she appeared to be comfortable. Face was flushed. Skin was dry. Lymph nodes were not enlarged. Head, ears, eyes, nose, mouth and throat were normal. The pupils were equally round and reactive and gaze was conjugate. It did increase her cephalalgia to ask her to flex her neck. She could not touch her chin to her chest. Lymph nodes were not enlarged. Chest was clear. Cardiac exam demonstrated what sounded like atrial fibrillation. Abdomen was soft and nontender without any masses or visceromegaly. Extremities were normal and neurologically she was intact. She is admitted to the hospital with the diagnoses: 1. Persistent low-grade fever with headache. 2. History of cardiomyopathy. 3. History of coronary artery disease. 4. Atrial fibrillation. 5. Congestive heart failure. 6. Nicotine abuse. PLAN: 1. Bedrest. 2. IV fluids. 3. Appropriate cultures, including blood cultures. 4. Consult with Infectious Disease. 5. Consult with Neurology. 6. Lumbar puncture. MMODL / IJN: [id number] /
--- NOTE | 2020-08-28 19:05 | P.CNNES ---
History of Present Illness Consult date: 08/28/20 Requesting physician: Daniel Mosqueda Reason for Consult: Headache, fever of uncertain origin History of Present Illness: Patient is a 55-year-old female came to the hospital today at [facility] 2:53 AM for new onset headache 4 days ago. Patient states that she woke up with a headache 4 days ago, but was mild in the beginning and as the day went on, kept on getting worse. Patient calls it a "massive headache", which she rates 8- 9/10, with nausea vomiting light and noise sensitivity. It is a pounding heada andres pointing to the frontal temporal region. Patient also has been having fever, up to 103. Vital signs arrival blood pressure 100.3, pulse rate 145, respiration 20 and blood pressure 174/116. The blood pressure did come down to 131/79. Patient's blood test shows normal CBC with differential, prothrombin time 13.0 with INR 1.3, potassium 5.4 with normal sodium and renal functions. AST is minimally elevated 42, normal ALT. UA shows small amount of blood, moderately was at [place]. Johnson virus negative. Chest x-ray showed no acute cardiopulmonary disease. Computed tomography scan of head showed no acute process. Redemonstration of suspected mass/aneurysm measuring 11 mm near the left ICA/suprasellar region versus pituitary mass. Visualized paranasal sinuses are clear. EKG shows undetermined rhythm. Patient was recently seen in hospital consultation on 08/15/2020 when she also had presented with headache of one-day duration. Patient underwent computed tomography scan of the head, which revealed possibility of cerebral aneurysm. Patient was transferred to [facility], where she underwent cerebral angiography, was told that she has an aneurysm, but no treatment was performed. She was recommended to have a follow-up testing in 6 months. Patient states the headache went away in 3 days until he started 4 days ago as mentioned. Review of Systems Headache, and other neurological symptoms as mentioned above. No focal symptoms. No numbness tingling focal weakness. Denies any chest pain. She does have nausea, sometimes vomiting, but no diarrhea. Patient denies any chest pain or abdominal pain. Denies any double vision, hoarseness, sore throat, dysphagia. No rash. She does have some fever. All other review of systems noncontributory. Past Medical History Past Medical History: COPD, Deep Vein Thrombosis (DVT), Hyperlipidemia, Hypertension, Myocardial Infarction ([place]), Pneumonia Additional Past Medical History / Comment(s): cardiomyopathy, DVT ( 4 yrs ago), brain aneursym Last Myocardial Infarction Date:: 4 yrs ago History of Any Multi-Drug Resistant Organisms: None Reported Past Surgical History: AICD, Cholecystectomy Additional Past Surgical History / Comment(s): defibrillator Past Anesthesia/Blood Transfusion Reactions: No Reported Reaction Type of Cardiac Device: AICD Device Placement Date:: 2012 Past Psychological History: Anxiety, Depression Smoking Status: Former smoker Past Alcohol Use History: None Reported Past Drug Use History: None Reported - Past Family History Mother Family Medical History: Diabetes Mellitus, Hypertension Father Family Medical History: No Reported History Medications and Allergies Home Medications Medication Instructions Recorded Confirmed Type Amiodarone [Cordarone] 100 mg PO DAILY #90 tab 04/08/20 08/28/20 Rx carvediloL [Coreg] 6.25 mg PO BID-W/MEALS #180 tab 04/08/20 08/28/20 Rx lisinopriL [Zestril] 2.5 mg PO DAILY #90 tab 04/08/20 08/28/20 Rx Warfarin [Coumadin] 5 mg PO W/SUPPER 07/06/20 08/28/20 History Atorvastatin [Lipitor] 40 mg PO HS 08/15/20 08/28/20 History Spironolactone [Aldactone] 25 mg PO HS 08/15/20 08/28/20 History Amoxicillin/Potassium Clav 1 tab PO Q12HR 1 Days #14 tab 08/25/20 08/28/20 Rx [Augmentin 875-125 Tablet] Allergies Allergy/AdvReac Type Severity Reaction Status Date / Time hydromorphone [From Dilaudid] AdvReac Vomiting Verified 08/28/20 07:10 Physical Examination - Vital Signs Vital Signs: Vital Signs Temp Pulse Pulse Resp BP BP Pulse Ox 08/28/20 10:04 98.5 F 81 18 131/79 94 L 08/28/20 09:30 81 20 08/28/20 07:55 98.1 F 96 18 131/76 96 08/28/20 04:41 98.7 F 105 H 22 129/62 94 L 08/28/20 02:57 100.3 F H 145 H 20 174/116 94 L Intake and Output 08/27/20 08/28/20 08/28/20 22:59 06:59 14:59 Other: Weight 95.254 kg On examination patient is a middle aged female, in no acute distress. Patient is alert awake oriented to time place and person. Speech and language functions are normal. Attention, concentration and fund of knowledge is adequate. On cranial nerve examination pupils are round and reacting to light, visual baker are full on confrontation, extraocular muscles are intact with no nystagmus. Face is symmetric, tongue protrudes to the midline. Palatal elevation and sensation normal. Hearing and shoulder shrug normal. On muscle strength testing there is no pronator drift and the strength is normal in arms and legs distally and proximally. Reflexes are 1+ to 2+ and plantars downgoing. Sensory to touch is equal. No ataxia for [id number] testing. Tone and bulk of muscles normal. On general examination there is no bruit or murmur, peripheral pulses present. Abdomen soft nontender. Peripheral pulses present. Results - Laboratory Findings CBC and BMP: 08/28/20 03:33 08/28/20 03:33 Abnormal Lab Findings: Abnormal Labs 08/28/20 08/28/20 08/28/20 03:33 03:33 03:53 Plt Count 144 L PT INR Potassium 5.4 H Glucose 112 H Total Bilirubin 1.4 H AST 42 H Urine Protein 1+ H Urine Blood Small H Ur Leukocyte Esterase Moderate H Urine Bacteria Rare H Urine Mucus Rare H 08/28/20 10:53 Plt Count PT 13.0 H INR 1.3 H Potassium Glucose Total Bilirubin AST Urine Protein Urine Blood Ur Leukocyte Esterase Urine Bacteria Urine Mucus Assessment and Plan Assessment: * Cephalalgia of 4 days duration, unclear etiology. Patient had a similar headache on 08/15/2020, which the headache lasted for 3 days. No previous history of headaches or migraines. Unusual for migraines to begin at this age. Patient has been having some fever, therefore intracranial infection needs to be ruled out. Rule out viral meningitis. * Cerebral aneurysm * Hypertension * Pacemaker. * COPD Plan: * Patient to undergo lumbar puncture to rule out viral meningitis, or subarachnoid hemorrhage. * Recommend checking opening pressure as well. * Further management will be based upon above results.
[2020-08-28] MEDS: ATORVASTATIN 40 MG TAB PO SCH (22:24)
[2020-08-28] MEDS: SPIRONOLACTONE 25 MG TAB PO SCH (22:24)
--- NOTE | 2020-08-28 23:16 | CONS ---
CONSULTATION DATE OF SERVICE: 08/28/2020 REASON FOR CONSULTATION: Fever. HISTORY OF PRESENT ILLNESS: The patient is a 55-year-old female presenting to the ER early this morning for evaluation of fever, headache and cough. The patient's symptoms have been going on for the last 3 to 4 days. The patient describes her headache to be mostly in the frontal head area, throbbing. Intensity can be as high as 8 to 9 out of 10 and no radiation. No nausea, no vomiting. No photophobia. Denies having any chest pain or shortness of breath. Did have minimal cough but no sputum production. No abdominal pain or any diarrhea. Apparently the patient was recently evaluated on August 15, 2020 and the patient did have a headache, CT at that point did show possible aneurysm, for which the patient was transferred to [facility]. The patient did have an angiogram. She was not diagnosed with aneurysm, but no further treatment was advised other than followup in 6 months. On presentation to the hospital, the patient did have a fever of 100.3 degrees Fahrenheit. The patient was 94% on room air; currently 98% on 3 L nasal cannula. The patient did have normal white count with no lymphopenia. D-dimer was mildly elevated at 0.84. Creatinine was 0.73, AST mildly elevated. LDH and CRP were elevated. UA was mildly positive. Johnson PCR came back negative. Infectious Disease was consulted for further management with concern for . REVIEW OF SYSTEMS: Positive points have been mentioned in the HPI. Rest of the systems are negative. PAST MEDICAL HISTORY: COPD, DVT, hyperlipidemia, hypertension, [place], pneumonia, cardiomyopathy and brain aneurysm. PAST SURGICAL HISTORY: ICD cholecystectomy. SOCIAL HISTORY: Remote history of smoking. No drinking or drug use. FAMILY HISTORY: Mother with history of diabetes and hypertension. ALLERGIES: HYDROMORPHONE. MEDICATION: The patient is on Tylenol, amiodarone, Lipitor, Coreg, Rocephin, Pepcid, Zestril, Coumadin, morphine, Narcan, Zofran, Aldactone. PHYSICAL EXAMINATION: Her blood pressure 137/74 with a pulse of 72, temperature 98.4, T-max 100.3. She is 98% on 3 L nasal cannula. General description is a middle-aged female lying in bed in no distress. HEENT: Examination shows no pallor or scleral icterus. Oral mucous membrane is dry. NECK: Trachea is central. No thyromegaly. LUNGS: Unlabored breathing. Decreased intensity of breath sounds. No wheeze or crackle. HEART: S1, S2. Regular rate and rhythm. ABDOMEN: Soft. No tenderness. No guarding or rigidity. EXTREMITIES: No edema of the feet. SKIN EXAMINATION: No rash or mass palpable. Neurologically the patient is awake, alert, oriented x3. No evidence of any neck rigidity. LABS: Hemoglobin is 14.8, white count 8.2. D-dimer is 0.84. BUN of 12, creatinine 0.73. AST was elevated as well as LDH and CRP. Procalcitonin was not done. Urine is mildly positive. DIAGNOSTIC IMPRESSION AND PLAN: Patient with a fever, predominantly with headache and did have slight cough, mild hypoxemia with a likely differential of COVID-19 pneumonia, though initial nasal swab came back negative. However, her features are mostly suggestive of COVID-19, especially with the elevated D-dimer, mildly elevated AST, LDH and CRP. Her predominant symptom has been headache and we will need to rule out meningitis as well, though clinical suspicion is low. PLAN: 1. We will check a CT of the chest to rule out PE in view of elevated D-dimer and also look for any suggestive of COVID-19 infection. 2. Will check CSF examination, for which Anesthesia has been consulted. 3. Continue antibiotic Rocephin at this point. 4. Will follow clinical condition and investigations to further adjust medication if needed. Thank you for this consultation. Will follow this patient along with you. MMODL / IJN: [id number] /
--- NOTE | 2020-08-28 23:56 | CT ---
EXAMINATION TYPE: CT chest angio for PE DATE OF EXAM: 08/28/2020 COMPARISON: 10/17/2014 HISTORY: pe CT DLP: 522 mGycm Automated exposure control for dose reduction was used. CONTRAST: Performed with IV Contrast, patient injected with 65 mL of Isovue 370. Images obtained from the thoracic inlet to the diaphragm with IV contrast and 3-D post processed imag es. FINDINGS: There is pulmonary emphysema with emphysematous blebs at the lung apices. There is some mild reticula r interstitial infiltrate at the posterior lung bases. There is no pleural effusion. Heart size is no rmal. There is no pericardial effusion. There are no hilar masses. There is no mediastinal adenopathy. Thoracic aorta is intact. There is no aneurysm or dissection. The re are no hilar masses. Thoracic vertebra have normal alignment. There is no compression fracture. There is extensive posteri or osteophyte formation of the endplates and posterior longitudinal ligament in the mid thoracic spin e with some narrowing of the spinal canal. This is mostly at T8 T7 level. There is normal contrast opacification of the pulmonary arteries. There are no filling defects. IMPRESSION: No evidence of pulmonary embolism. Pulmonary emphysema and pulmonary fibrotic changes. Heart and lungs not significantly different than old exam. Midthoracic mild spinal stenosis. Slightly worse than old exam.
[2020-08-29] MEDS: MORPHINE SULFATE 4 MG/ML SYRINGE IV PRN ×5 (02:33→20:27)
[2020-08-29] MEDS: ONDANSETRON 4 MG/2 ML VIAL IVP PRN ×3 (05:46→21:59)
[2020-08-29] MEDS: SODIUM CHLORIDE 0.9% 1,000 ML IV SCH (05:52)
[2020-08-29] MEDS: ACETAMINOPHEN TAB 325 MG TAB PO PRN ×2 (08:02→14:41)
[2020-08-29 10:32] LABS: Basophils # (A) 0.02 X 10*3/uL (0.00-0.10); Basophils % (A) 0.3 %; Eosinophils # (A) 0.16 X 10*3/uL (0.04-0.35); Eosinophils % (A) 2.2 %; HCT 38.4 % (37.2-46.3); HGB 12.4 g/dL (12.0-15.0); Lymphocytes # (A) 1.07 X 10*3/uL (0.90-5.00); Lymphocytes % (A) 14.8 %; MCHC 32.3 g/dL (32.0-37.0); MCV 89.7 fL (80.0-97.0); Mean Platelet Volume 10.8 fL (9.5-12.2); Monocytes # (A) 0.56 X 10*3/uL (0.20-1.00); Monocytes % (A) 7.7 %; Neutrophils # (A) 5.39 X 10*3/uL (1.80-7.70); Neutrophils % (A) 74.4 %; Platelet Count 143 X 10*3/uL (140-440); RBC 4.28 X 10*6/uL (4.10-5.20); RDW 15.3 % (11.5-14.5); WBC 7.24 X 10*3/uL (4.50-10.00)
[2020-08-29] MEDS: AMIODARONE 100 MG TAB PO SCH (10:52)
[2020-08-29] MEDS: carvediloL 6.25 MG TAB PO SCH ×2 (10:52→16:54)
[2020-08-29] MEDS: FAMOTIDINE 20 MG TAB PO SCH ×2 (10:52→20:27)
[2020-08-29 11:34] LABS: INR 1.3 (0.90-1.11); Prothrombin Time 13.9 sec (9.9-11.9)
[2020-08-29 11:37] LABS: INR 1.3 (<1.2); Partial Thromboplastin Time 23.9 sec (22.0-30.0); Prothrombin Time 13.4 sec (9.0-12.0)
[2020-08-29] MEDS: DEXTROSE 5%-0.2% NACL 1,000 ML IV SCH ×2 (12:11→23:46)
[2020-08-29 14:28] LABS: African American GFR (CKD) 112.3 (60.0-200.0); Anion Gap 5.5 mmol/L (4.00-12.00); C Reactive Protein 5.6 mg/dL (0.0-0.8); Carbon Dioxide 30.5 mmol/L (21.6-31.8); Non-African American GFR(CKD) 96.9 (60.0-200.0); Potassium 4.6 mmol/L (3.5-5.5)
--- NOTE | 2020-08-29 14:49 | PN ---
PROGRESS NOTE DATE OF SERVICE: 08/29/2020 CHIEF COMPLAINT: Headache and low-grade fever. HISTORY OF PRESENT ILLNESS: This lady continues to complain bitterly of the headache. She has been seen by Neurology and a lumbar puncture is planned to which she is now, apparently, agreeing to. She is also having difficulty with nausea and some diarrhea. PHYSICAL EXAMINATION: Face remains flushed. Chest is clear. Cardiac exam is unchanged. Abdomen is soft, nontender. Bowel sounds are present. IMPRESSION: 1. Headache with fever. 2. Cardiomyopathy. 3. Nausea. 4. Diarrhea. PLAN: 1. Increase IV rate. 2. Await results of lumbar puncture. 3. Treat diarrhea and nausea symptomatically. MMODL / IJN: [id number] /
--- NOTE | 2020-08-29 15:27 | P.PCN ---
Date of Procedure: 08/29/20 Procedure(s) Performed: Preoperative diagnosis: 1-viral Meningitis 2-severe headache Post operative diagnoses: Same as preop diagnosis Procedure= lumbar puncture Anesthesia local infiltration with lidocaine 1% 3 mL only Condition: stable Complication: none. Description of the procedure procedure risk and benefits discussed with the patient and family, consent signed. Patient and the procedure area placed in lateral position ( left side down ), back prepped with chlorhexidine 3 times been local infiltration of the skin and subcutaneous tissue with lidocaine 1% 3 mL for skin and subcu interstitial frustrations at L4-5 levels then 22-gauge Quincke-type needle advanced slowly at L4- 5 interlaminar space there was positive cerebrospinal fluid which was clear, no heme, no paresthesia ,total of 11 ML of clear cerebrospinal fluid collected in 4 different tubes 2-2-1/2 mL in each, then the needle removed and a Band-Aid applied and patient tolerated the procedure well without any complications.(Patient on Coumadin and INR 1,3 ) openin pressure= 35 CM of water. Closing pressure= 21 CM of Water
[2020-08-29] MEDS ORDERED: WARFARIN 3 MG TAB PO ONE (18:00)
[2020-08-29 18:08] LABS: Glucose,CSF 61 mg/dL (40-70); Total Protein,CSF 46 mg/dL (12-60)
[2020-08-29 18:12] LABS: Appearance,CSF Clear; CSF Tube Number 2; CSF Tube Volume 2.8; Nucleated Cells, CSF 1 u/L (0-5); Red Blood Cell,CSF 0 u/L (0-10)
[2020-08-29] MEDS: SPIRONOLACTONE 25 MG TAB PO SCH (20:27)
[2020-08-29] MEDS: ATORVASTATIN 40 MG TAB PO SCH (20:27)
--- NOTE | 2020-08-29 20:36 | CONS ---
CONSULTATION Mrs. Beth is a 55-year-old female last seen in our office by Dr. Reece in 2016. She has a known history of severe nonischemic cardiomyopathy by cardiac catheterization in 2011 and in 2014 received a biventricular ICD implantation. She presented to the hospital with symptoms of severe headache, nausea and not feeling well. Apparently she had a headache on and off for a few days, much worse on presentation. The patient was recently in the hospital on August 15 because of the headache. She subsequently underwent CT scan that raised the possibility of cerebral aneurysm and she was transferred to [facility], underwent cerebral angiography, and was told that she has a cerebral aneurysm, but clinical observation was recommended. She presents again with severe headache and is quite limited because of that. She has chronic dyspnea on exertion which according to her has not changed. She denies any chest pain, dizziness or palpitation. She has no clear PND or orthopnea. Her medications as an outpatient included trazodone, Zestril 2.5 mg daily, Coreg 6.25 mg twice a day, Coumadin, spironolactone 25 mg daily, Lipitor 40 mg daily and amiodarone 100 mg a day. REVIEW OF SYSTEMS: RESPIRATORY SYSTEM: She has chronic dyspnea on exertion with no significant change. She had low-grade fever on admission. She denies any recent cough. GI SYSTEM: She denies any nausea or vomiting. No peptic ulcer disease. SYSTEM: No dysuria or hematuria. NERVOUS SYSTEM: She has a severe headache and brain aneurysm as noted. PHYSICAL EXAMINATION: She is a 55-year-old female, alert, oriented, complaining of the headache. Blood pressure running 100 to 130 with a heart rate in the 70s. HEAD: Normocephalic. Eyes: Sclerae anicteric. NECK: Good carotid upstroke. No bruit. No jugular venous distention. LUNGS: Clear to auscultation. HEART: Regular rate and rhythm. S1, S2. No S3, with a systolic murmur heard at the base, ejection type. No diastolic murmur. No rub. ABDOMEN: Soft, nontender. Positive bowel sounds. No organomegaly. EXTREMITIES: No edema. LAB DATA: Lab data revealed a white blood cell count of 8.2, hemoglobin of 14.3. Her INR on admission was 1.3. BUN and creatinine were 12 and 0.73. Her total bilirubin 1.4, AST of 42. LDH of 1278. C-reactive protein of 63.7. Her procalcitonin has been 0.16 and 0.10. Her EKG showed what appears to be sinus tachycardia with a paced rhythm. She had a brain CT that showed no acute hemorrhage, with the aneurysm noted in the left internal carotid artery. Her chest x-ray shows no acute infiltrate. She had a CT angiogram of the chest that showed no evidence of pulmonary embolism. She underwent lumbar puncture by Dr. Gramajo today and the results continue to be pending. On admission, the patient had a temperature of 100.3. IMPRESSION: 1. Severe cephalgia. Workup in progress. 2. History of severe nonischemic cardiomyopathy with no acute evidence of decompensation. 3. Status post biventricular ICD implantation. 4. History of hyperlipidemia. RECOMMENDATIONS: From the cardiac standpoint, I will obtain an echocardiogram with Doppler. I will check her thyroid function test. At this time I see no evidence of active cardiac issues. Depending on her progress, further recommendations will be made. Thank you for this consult. We will follow with you. MMODL / IJN: [id number] /
--- NOTE | 2020-08-29 20:46 | P.PN ---
Subjective Progress Note Date: 08/29/20 (Late entry) Patient was seen for a follow-up, earlier this morning at around 12 PM. Patient was still complaining of pain, 02/25, pointing to the bifrontal region. Patient's blood test continues to be normal, with WBC is 7.24, hemoglobin 12.4 and platelets 143. INR is 1.3. Chem-7 is normal. Objective - Vital Signs Vital signs: Vital Signs Temp 98.2 F 08/29/20 17:53 Pulse 70 08/29/20 17:53 Resp 16 08/29/20 17:53 BP 109/64 08/29/20 17:53 Pulse Ox 98 08/29/20 17:53 Intake & Output 08/29/20 08/29/20 08/30/20 06:59 18:59 06:59 Intake Total 236 Balance 236 Intake: Oral 236 Other: Voiding Method Toilet # Voids 2 1 - Exam Patient continues to be in some distress. Having a headache. Mentation otherwise normal. Detailed examination deferred. - Labs CBC & Chem 7: 08/29/20 07:21 08/29/20 07:21 Labs: Abnormal Lab Results - Last 24 Hours (Table) 08/28/20 08/29/20 08/29/20 Range/Units 16:38 07:21 07:21 RDW (11.5-14.5) % PT 13.9 H (9.9-11.9) sec INR 1.30 H (0.90-1.11) BUN (9.0-27.0) mg/dL BUN/Creatinine Ratio (12.00-20.00) Ratio C-Reactive Protein (0.0-0.8) mg/dL Procalcitonin 0.16 H 0.10 H (0.02-0.09) ng/mL 08/29/20 08/29/20 08/29/20 Range/Units 07:21 07:21 10:54 RDW 15.3 H (11.5-14.5) % PT 13.4 H (9.9-11.9) sec INR 1.3 H (0.90-1.11) BUN 7.0 L (9.0-27.0) mg/dL BUN/Creatinine Ratio 10.00 L (12.00-20.00) Ratio C-Reactive Protein 5.6 H (0.0-0.8) mg/dL Procalcitonin (0.02-0.09) ng/mL Assessment and Plan Assessment: * Cephalalgia of 4 days duration, unclear etiology. Patient had a similar hea dache on 08/15/2020, however the headache lasted for 3 days. No previous history of headaches or migraines. Unusual for migraines to begin at this age. Patient has been having some fever, therefore intracranial infection needs to be ruled out. Rule out viral meningitis. * Cerebral aneurysm * Hypertension * Pacemaker. * COPD Plan: * Lumbar puncture was performed today by anesthesia in lateral recumbent position. Opening pressure was 35 cm, closing pressure 21 cm. 11 mL was drained. It was colorless and clear. No xanthochromia (rules out sub arachnoid hemorrhage). RBC 1, WBC 0. Total proteins normal 46 (12-60), glucose 61. No evidence of viral meningitis. However elevated opening pressure raises possibility of pseudotumor cerebri. The patient does not take any hormone replacement therapy. Patient states the last time she saw an eye doctor was 1 year ago and everything was fine. At this time we will start her on Diamox 250 mg twice a day. * Patient had cerebral angiogram performed recently at [facility]. I suspect it does rule out venous sinus thrombosis. I will check with neuro intervention. If not, then we will check CTV of the brain to rule out venous sinus thrombosis. * Patient will be started on Diamox 250 mg twice a day. * Recommend follow-up with professional wrestler as outpatient to rule out signs of pseudotumor.
[2020-08-29] MEDS ORDERED: traZODone HCL 100 MG TAB PO SCH (21:00)
--- NOTE | 2020-08-29 22:57 | PN ---
PROGRESS NOTE DATE OF SERVICE: 08/29/2020 REASON FOR FOLLOWUP: Fever, UTI and a question of meningitis. INTERVAL HISTORY: The patient is currently afebrile. She is still complaining of headache. No photophobia. No nausea, no vomiting, no abdominal pain or diarrhea. PHYSICAL EXAMINATION: Blood pressure 109/64, pulse of 70, temperature 98.2. She is 98% on room air. General description is a middle-aged female lying in bed in no distress. RESPIRATORY SYSTEM: Unlabored breathing with decreased intensity of breath sounds. No wheeze. HEART: S1, S2. Regular rate and rhythm. ABDOMEN: Soft. No tenderness. LABS: Hemoglobin is 12.4, white count 7.24, BUN of 7, creatinine 0.7. DIAGNOSTIC IMPRESSION AND PLAN: Patient admitted to hospital with a fever; did have intractable headache with a concern for possible meningitis. However, her CSF finding is essentially normal. Will rule out meningitis or encephalitis. She did have mildly elevated procalcitonin and a positive UA and fever responded to Rocephin; to continue. Unfortunately cultures were not done. Continue supportive care. MMODL / IJN: [id number] /
[2020-08-30] MEDS ORDERED: RX INFO: IV CONTRAST WAS GIVEN 1 EACH MISC MISCELLANE PRN (00:16)
[2020-08-30] MEDS: MORPHINE SULFATE 4 MG/ML SYRINGE IV PRN (04:21)
[2020-08-30] MEDS: ONDANSETRON 4 MG/2 ML VIAL IVP PRN (05:16)
--- NOTE | 2020-08-30 07:14 | ECHOF ---
Referral Reason:cardiomyopathy, FUO MEASUREMENTS -------- HEIGHT: 172.7 cm WEIGHT: 95.3 kg BP: 114/68 IVSd: 1.6 cm (0.6 - 1.1) LVIDd: 5.7 cm (3.9 - 5.3) LVPWd: 1.6 cm (0.6 - 1.1) IVSs: 1.7 cm LVIDs: 4.3 cm LVPWs: 2.1 cm EF(Teich): 50 % LAESV Index (A-L): 42.93 ml/m IVSd: 1.3 cm (0.6 - 1.1) LVIDd: 7.9 cm (3.9 - 5.3) LVPWd: 1.7 cm (0.6 - 1.1) IVSs: 2.1 cm LVIDs: 5.8 cm LVPWs: 2.3 cm EDV(Teich): 334 ml ESV(Teich): 166 ml EF(Teich): 50 % %FS: 27 % SV(Teich): 168 ml Ao Diam: 2.5 cm (2.0 - 3.7) AV Cusp: 1.7 cm (1.5 - 2.6) MV E Shaheed: 1.04 m/s MV DecT: 190 ms MV A Shaheed: 0.99 m/s MV E/A Ratio: 1.05 RAP: 5.00 mmHg RVSP: 36.24 mmHg FINDINGS -------- Sinus rhythm. Pacerwire seen in RV and RA. This was a technically difficult study with suboptimal views. The left ventricular size is normal. There is moderate concentric left ventricular hypertrophy. O verall left ventricular systolic function is mild-moderately impaired with, an EF between 40 - 45 %. The RV was not well visualized. LA is severely dilated >40 ml/m2 The right atrium was not well visualized. 5.0mg of Lumason was utilized for enhancement of images The aortic valve was not well visualized. There is no evidence of aortic regurgitation. There is no evidence of aortic stenosis. The mitral valve is normal. Mild mitral regurgitation is present. The tricuspid valve appears structurally normal. Mild tricuspid regurgitation present. There is m ild pulmonary hypertension. The right ventricular systolic pressure, as measured by Doppler, is 36. 24mmHg. The pulmonic valve was not well visualized. There is no pulmonic regurgitation present. The aortic root size is normal. IVC Not well visulized. There is no pericardial effusion. CONCLUSIONS -------- 1. Pacerwire seen in RV and RA. 2. This was a technically difficult study with suboptimal views. 3. There is moderate concentric left ventricular hypertrophy. 4. Overall left ventricular systolic function is mild-moderately impaired with, an EF between 40 - 45 %. 5. LA is severely dilated >40 ml/m2 6. The aortic valve was not well visualized. 7. Mild mitral regurgitation is present. 8. Mild tricuspid regurgitation present. 9. There is mild pulmonary hypertension. RIG BUILDER HELPER: Re Carter RDCS
[2020-08-30 07:21] LABS: African American GFR (CKD) >90 (>60 ml/min/1.73 sqM); Anion Gap 4 mmol/L; Blood Urea Nitrogen 7 mg/dL (7-17); Carbon Dioxide 36 mmol/L (22-30); Chloride 99 mmol/L (98-107); Glucose 110 mg/dL (74-99); Non-African American GFR(CKD) >90 (>60 ml/min/1.73 sqM); Potassium 4.1 mmol/L (3.5-5.1); Sodium 139 mmol/L (137-145)
--- NOTE | 2020-08-30 07:48 | CT ---
EXAMINATION TYPE: CT brain w con DATE OF EXAM: 08/30/2020 COMPARISON: 08/28/2020 INDICATION: Rule out cerebral venous thrombosis, SARAH, nausea DLP: 1055.4 mGycm, Automated exposure control for dose reduction was used. CONTRAST: None CT of the brain is performed utilizing 3 mm thick sections through the posterior fossa and 3 mm thick sections through the remaining calvarium. Study is performed within 24 hours of arrival to the hosp ital. No abnormal hyperdensity is present to suggest an acute intracranial hemorrhage. There is enhancing mass in the left suprasellar region measuring 1.2 x 1.6 cm. Aneurysm and solid mas s would be within the differential. This appears less enhanced than the adjacent vascular structures. No suspicious filling defects to suggest venous thrombosis is identified. Dural sinus appears patent. Sigmoid sinuses appear patent. No acute infarcts are evident. Ventricles and sulci are appropriate for the patient age. Paranasal sinuses and mastoid air cells within the semob-kg-vdvl are clear. IMPRESSIONS: 1. No acute intracranial process. 2. Enhancing mass in the left suprasellar region measures slightly larger on these postcontrast image s than the comparison of 08/15/2020 from comparison. Aneurysm remains within the differential.
[2020-08-30] MEDS: FAMOTIDINE 20 MG TAB PO SCH (07:51)
[2020-08-30] MEDS: AMIODARONE 100 MG TAB PO SCH (07:51)
[2020-08-30] MEDS: carvediloL 6.25 MG TAB PO SCH (07:51)
[2020-08-30] MEDS: DEXTROSE 5%-0.2% NACL 1,000 ML IV SCH (07:51)
[2020-08-30] MEDS: ACETAMINOPHEN TAB 325 MG TAB PO PRN (07:53)
[2020-08-30] MEDS ORDERED: acetaZOLAMIDE 250 MG TAB PO SCH (09:00)
[2020-08-30] MEDS ORDERED: METOCLOPRAMIDE 5 MG/ML 2 ML VIAL IVP PRN (11:04)
[2020-08-30] MEDS ORDERED: ONDANSETRON 4 MG/2 ML VIAL IVP PRN (11:05)
[2020-08-30] MEDS ORDERED: BUTALB/APAP/CAFF 50-325-40MG TAB PO PRN (11:35)
--- NOTE | 2020-08-30 11:43 | PN ---
PROGRESS NOTE Mrs. Beth is a 55-year-old female who presented with severe headache. She has a known history of severe nonischemic cardiomyopathy, status post Bi V ICD implantation. Her headache is better today. She denies any chest pain. Her breathing has been stable. She denies any dizziness or palpitation. She denies any nausea. She had an echocardiogram that showed an ejection fraction of 40% to 45% with mild mitral and tricuspid regurgitation. Her ejection fraction is improved compared to the prior testing. She continues to be on amiodarone 100 mg daily. She was started on Diamox 250 mg twice a day. She is on Lipitor 40 mg daily, Coreg 6.25 mg twice a day, lisinopril 2.5 mg daily and spironolactone 25 mg daily in addition to Coumadin. PHYSICAL EXAMINATION: Blood pressure running in the 120s with the heart rate in the 70s. LUNGS: Clear. HEART: Regular rate and rhythm. S1, S2. No S3 with systolic murmur. No diastolic murmur. No rub. ABDOMEN: Soft, nontender. EXTREMITIES: No edema. LAB DATA: Lab data revealed a BUN and creatinine of 7 and 0.7. Potassium 4.1. IMPRESSION: 1. Headache workup in progress. 2. Known history of intracranial aneurysm. 3. Nonischemic cardiomyopathy, stable. 4. Status post ICD Bi-V implantation. 5. History of hyperlipidemia. RECOMMENDATION: From the cardiac standpoint, she is stable on her present medical regimen. We will see her on as-needed basis. We will follow as an outpatient. Please feel free to call us for any question. MMODL / IJN: [id number] /
[2020-08-30 14:31] VITALS: BP 110/71; PULSE 73; RESP 18; TEMP 97.7
--- NOTE | 2020-08-30 15:25 | P.DS ---
Providers Date of admission: 08/28/20 06:02 Expected date of discharge: 08/30/20 Attending physician: Daniel Mosqueda Consults: 08/28/20 06:01 Consult Physician Urgent Consulting Provider: Sherwin Calero Consult Reason/Comments: Fever, uncertain etiology. Do you want consulting provider notified?: Yes 08/28/20 12:56 Consult Physician Routine Consulting Provider: Joe Mg Consult Reason/Comments: neurology: headache with FUO Do you want consulting provider notified?: Yes 08/28/20 16:44 Consult to Anesthesia Stat Consulting Provider: Anesthesia,Services Consult Reason/Comments: LP/CSF --- please check opening pressure as well 08/29/20 12:38 Consult Physician Routine Consulting Provider: Jarad Hernadez Consult Reason/Comments: FUO, heart disease Do you want consulting provider notified?: Yes Primary care physician: Daniel Mosqueda Hospital Course: Final diagnosis Headache with fever Nonischemic Cardiomyopathy Nausea Diarrhea History of intracranial aneurysm Status post ICD bivalve implantation History of hyperlipidemia Discharge disposition Patient is being discharged in a stable condition with guarded prognosis to home. Patient will follow-up with Dr. Mosqueda in the outpatient setting upon discharge. Patient also instructed to follow-up with ophthalmology and an appointment was scheduled for this Wednesday with Dr. Lazar. She we'll continue with Diamox along with Fioricets upon discharge. Total time taken is greater than 35 minutes. Hospital course Patient is a 55-year-old female who was recently admitted by her primary care provider Dr. Mosqueda for headache with fever and was evaluated by cardiology for known history of cardiomyopathy and high cholesterol and hypertension along with neurology. Patient underwent lumbar puncture and CSF fluid analysis is pending at this time. She also underwent head CT showing an enhancing mass in the left suprasellar region that measures slightly larger on these postcontrast images from previous comparison of 08/15/2020 with continued aneurysm present. She also underwent 2-D echo showing moderate concentric left ventricular hypertrophy with overall LV systolic function is mild to moderately impaired with an EF of 40-45% with some mild pulmonary hypertension and mild mitral and tricuspid regurgitation present. No evidence of viral meningitis noted on the CSF lumbar puncture. There was concern for pseudotumor as the opening pressure was 35 cm and closing pressure was 21 noted on lumbar puncture and patient was started on Diamox 250 mg twice daily and will continue in the outpatient setting. Patient instructed to follow-up with ophthalmology outpatient and an appointment was made or this Wednesday. 08/30/2020 She is seen and evaluated this morning and follow-up in is alert and oriented 3. Patient is tolerating diet with minimal reports of nausea noted. She was able to tolerate breakfast and lunch. Patient is on Zofran and Reglan as needed. Per neurology recommendations patient was started on Fioricet and will continue in the outpatient setting. An appointment was made for ophthalmology and patient will follow-up with them on Wednesday along with primary care provider Dr. Mosqueda. Patient is up and walking with no difficulty. Currently no reports of chest pain, shortness of breath, or palpitations. Patient is afebrile. No reports of nausea or vomiting and patient is tolerating diet. Patient will be discharged home today. Guarded prognosis. On exam vital signs are stable. Temp is 97.7F, pulse is 73, respirations are 18, blood pressure is 110/71, oxygen saturation is 94% on room air. Cardio S1, S2 are muffled. Respiratory system shows diminished breath sounds at the bases with no wheezing or rhonchi noted. Abdomen is soft and nontender. Nervous system shows no focal deficits. Please refer to medication reconciliation sheet for a list of medications. Patient Condition at Discharge: Stable Plan - Discharge Summary Discharge Rx Participant: Yes New Discharge Prescriptions: New Cefuroxime Axetil [Ceftin] 500 mg PO BID 3 Days #6 tab acetaZOLAMIDE [Diamox] 250 mg PO BID 30 Days #60 tab Butalb/APAP/Caff 50-325-40Mg [Fioricet 50-325-40] 1 each PO Q6H PRN #12 tab PRN Reason: Headache Metoclopramide HCl [Reglan] 5 mg PO Q8H #10 tablet Acetaminophen Tab [Tylenol] 650 mg PO Q6HR PRN tab PRN Reason: Mild Pain Or Fever > 100.5 Ondansetron Odt [Zofran Odt] 4 mg PO Q8HR PRN #12 tab PRN Reason: Nausea Continue Amiodarone [Cordarone] 100 mg PO DAILY #90 tab carvediloL [Coreg] 6.25 mg PO BID-W/MEALS #180 tab lisinopriL [Zestril] 2.5 mg PO DAILY #90 tab Warfarin [Coumadin] 5 mg PO W/SUPPER Atorvastatin [Lipitor] 40 mg PO HS Spironolactone [Aldactone] 25 mg PO HS traZODone HCL 100 mg PO HS PRN PRN Reason: Insomnia Discontinued Amoxicillin/Potassium Clav [Augmentin 875-125 Tablet] 1 tab PO Q12HR 1 Days #14 tab Discharge Medication List Amiodarone [Cordarone] 100 mg PO DAILY #90 tab 04/08/20 [Rx] carvediloL [Coreg] 6.25 mg PO BID-W/MEALS #180 tab 04/08/20 [Rx] lisinopriL [Zestril] 2.5 mg PO DAILY #90 tab 04/08/20 [Rx] Warfarin [Coumadin] 5 mg PO W/SUPPER 07/06/20 [History] Atorvastatin [Lipitor] 40 mg PO HS 08/15/20 [History] Spironolactone [Aldactone] 25 mg PO HS 08/15/20 [History] traZODone HCL 100 mg PO HS PRN 08/29/20 [History] Acetaminophen Tab [Tylenol] 650 mg PO Q6HR PRN tab 08/30/20 [Rx] Butalb/APAP/Caff 50-325-40Mg [Fioricet 50-325-40] 1 each PO Q6H PRN #12 tab 08/30/20 [Rx] Cefuroxime Axetil [Ceftin] 500 mg PO BID 3 Days #6 tab 08/30/20 [Rx] Metoclopramide HCl [Reglan] 5 mg PO Q8H #10 tablet 08/30/20 [Rx] Ondansetron Odt [Zofran Odt] 4 mg PO Q8HR PRN #12 tab 08/30/20 [Rx] acetaZOLAMIDE [Diamox] 250 mg PO BID 30 Days #60 tab 08/30/20 [Rx] Follow up Appointment(s)/Referral(s): Daniel Mosqueda MD [Primary Care Provider] - 09/02/20 12:50 pm Yu Lazar MD [STAFF PHYSICIAN] - 09/02/20 8:00 am Patient Instructions/Handouts: Acute Headache (DC) Activity/Diet/Wound Care/Special Instructions: Activity Limited until follow-up follow up with primary care provider upon discharge continue with current medications follow up with opthalmology this week Discharge/Stand Alone Forms: Lena Pain/Albertomer Instructions Discharge Disposition: HOME SELF-CARE
[2020-08-30 15:47] LABS: INR 1.37 (0.90-1.11); Prothrombin Time 14.6 sec (9.9-11.9)
--- NOTE | 2020-08-30 16:18 | P.PN ---
Subjective Progress Note Date: 08/30/20 Patient was seen for a follow-up, earlier this morning at around 12 PM. Patient states her headaches is better. Rates it 5-6/10. States the neck feels stiff and gets a headache in the frontal region. Patient's blood test continues to be normal, with WBC is 7.24, hemoglobin 12.4 and platelets 143. INR is 1.3. Chem-7 is normal. Objective - Vital Signs Vital signs: Vital Signs Temp 97.7 F 08/30/20 14:30 Pulse 73 08/30/20 14:30 Resp 18 08/30/20 14:30 BP 110/71 08/30/20 14:30 Pulse Ox 94 L 08/30/20 14:30 Intake & Output 08/29/20 08/30/20 08/30/20 18:59 06:59 18:59 Intake Total 236 Balance 236 Intake: Oral 236 Other: Voiding Method Toilet # Voids 1 3 - Exam Patient appears more comfortable. Still with moderate headache. Cranial nerves are normal. Muscle strength normal. Gait normal. - Labs CBC & Chem 7: 08/29/20 07:21 08/30/20 06:45 Labs: Abnormal Lab Results - Last 24 Hours (Table) 08/30/20 08/30/20 Range/Units 06:45 06:45 PT 14.6 H (9.9-11.9) sec INR 1.37 H (0.90-1.11) Carbon Dioxide 36 H (22-30) mmol/L Glucose 110 H (74-99) mg/dL Microbiology - Last 24 Hours (Table) 08/29/20 15:00 CSF Gram Stain - Preliminary Cerebral Spinal Fluid CSF Culture - Preliminary Assessment and Plan Assessment: * Cephalalgia of 5 days duration, unclear etiology. Spinal fluid examination revealed elevated opening pressure of 35 cm, suggestive of pseudotumor cerebri. No evidence of intracranial infection. No evidence of dural venous sinus thrombosis noted on computed tomography scan of the brain with contrast. * Cerebral aneurysm * Hypertension * Pacemaker. * COPD Plan: * Lumbar puncture was performed today by anesthesia in lateral recumbent position. Opening pressure was 35 cm, closing pressure 21 cm. 11 mL was drained. It was colorless and clear. No xanthochromia (rules out subarachnoi d hemorrhage). RBC 1, WBC 0. Total proteins normal 46 (12-60), glucose 61. No evidence of viral meningitis. However elevated opening pressure raises possibility of pseudotumor cerebri. The patient does not take any hormone replacement therapy. * Continue Diamox 250 mg twice a day. * Case discussed with Dr. Irby. Computed tomography scan of the brain with contrast was performed, as CTV capability not available in this hospital. It revealed no acute intracranial process. Enhancing mass in the left suprasellar region measures slightly larger on these post contrast images than the comparison of 08/15/2020 from comparison. Aneurysm remains within the differential. Paranasal sinuses and mastoid air cells are clear. No suspicious filling defect to suggest venous thrombosis. Dural sinus appears patent. Sigmoid sinuses appear patent. Spoke to the reading radiologist as well. * Recommend follow-up with nurses' association counselor as outpatient to rule out signs of pseudotumor. * Fioricet as needed for headaches.
--- NOTE | 2020-08-31 13:08 | P.PN ---
Subjective Progress Note Date: 08/30/20 HISTORY OF PRESENT ILLNESS This is a 55-year-old female treated for fever UTI and question of meningitis w hich is been ruled out by CSF fluid testing. Patient has responded well to Rocephin for urinary tract infection. Patient states that her headache is improving. She denies any chest pain. She has a cough is nonproductive. No nausea, vomiting, diarrhea. The patient is scheduled for discharge home today. She is afebrile, heart rate 73, blood pressure 110/71, pulse ox 94% on room air. No CBC today. Creatinine 0.71. Herpes simplex is not detected. Patient is cleared for discharge with short course of antibiotics. PHYSICAL EXAMINATION Gen: This is a 55-year-old female. Patient is resting in bed and appears to be comfortable and in no acute distress. HEENT: Head is atraumatic, normocephalic. Pupils equal, round. Sclerae is anicteric. NECK: Supple. No JVD. No lymphadenopathy. LUNGS: Clear to auscultation. No wheezes or rhonchi. No intercostal retractions. HEART: Regular rate and rhythm. No murmur. ABDOMEN: Soft. Bowel sounds are present. No masses. No tenderness. EXTREMITIES: No pedal edema. No calf tenderness. NEUROLOGICAL: Patient is awake, alert and oriented x3. ASSESSMENT UTI Meningitis ruled out PLAN Short course of Ceftin as an outpatient. The above dictated assessment and findings were discussed with Dr. Calero. The impression and plan of care have been directed as dictated. Dary Danielson nurse practitioner acting as scribe for Dr. Calero. Objective - Vital Signs Vital signs: Vital Signs Temp 97.9 F 08/30/20 05:48 Pulse 76 08/30/20 05:48 Resp 16 08/30/20 05:48 BP 96/60 08/30/20 05:48 Pulse Ox 97 08/30/20 05:48 Intake & Output 08/29/20 08/30/20 08/30/20 18:59 06:59 18:59 Intake Total 236 Balance 236 Intake: Oral 236 Other: Voiding Method Toilet # Voids 1 3 - Labs CBC & Chem 7: 08/29/20 07:21 08/30/20 06:45 Labs: Abnormal Lab Results - Last 24 Hours (Table) 08/29/20 08/30/20 Range/Units 07:21 06:45 Carbon Dioxide 36 H (22-30) mmol/L BUN 7.0 L (9.0-27.0) mg/dL BUN/Creatinine Ratio 10.00 L (12.00-20.00) Ratio Glucose 110 H (74-99) mg/dL C-Reactive Protein 5.6 H (0.0-0.8) mg/dL Microbiology - Last 24 Hours (Table) 08/29/20 15:00 CSF Gram Stain - Preliminary Cerebral Spinal Fluid CSF Culture - Preliminary
--- NOTE | 2020-09-03 20:01 | DS ---
DISCHARGE SUMMARY CHIEF COMPLAINT: Headache and fever. HISTORY OF PRESENT ILLNESS AND PHYSICAL EXAMINATION: Details of this lady's history and physical can be found in the initial workup. LABORATORY STUDIES: While she was in the hospital she had laboratory studies, details of which can be found in the laboratory section of her chart. COURSE IN THE HOSPITAL: After admission she was placed on bedrest, started on intravenous fluids and underwent appropriate cultures. She was seen by Neurology. Headache persisted, although the temperature came down. A lumbar puncture was performed and it was unremarkable. The opening pressure was not recorded, but she was started on Diamox. She was doing well and it was felt that she could be discharged, and she will be followed up in several days by the office. FINAL DIAGNOSES: 1. Headache with fever. 2. History of cardiomyopathy. 3. History of congestive heart failure. 4. History of atrial fibrillation. 5. History of pulmonary emboli. OPERATION: Lumbar puncture. CONSULTATIONS: 1. Neurology. 2. Infectious Disease. She is improved. MMODL / IJN: [id number] /
== END 2020-08-30 14:52 | disposition home or self-care (01) ==
LOC: EC 02:53 → 4SSUR 06:02
PROVIDERS: ADMIT Family Medicine; ATTEND Family Medicine
DX: R51.9 Headache, unspecified (principal); N39.0 Urinary tract infection, site not specified; I67.1 Cerebral aneurysm, nonruptured; I48.91 Unspecified atrial fibrillation; I11.0 Hypertensive heart disease with heart failure; I50.9 Heart failure, unspecified; I42.8 Other cardiomyopathies; E78.5 Hyperlipidemia, unspecified; I27.20 Pulmonary hypertension, unspecified; E78.00 Pure hypercholesterolemia, unspecified; J44.9 Chronic obstructive pulmonary disease, unspecified; I08.1 Rheumatic disorders of both mitral and tricuspid valves; I25.10 Atherosclerotic heart disease of native coronary artery without angina pectoris; R79.89 Other specified abnormal findings of blood chemistry; R74.01 Elevation of levels of liver transaminase levels; R19.7 Diarrhea, unspecified; F32.9 Major depressive disorder, single episode, unspecified; F41.9 Anxiety disorder, unspecified; M48.04 Spinal stenosis, thoracic region; Z20.828 Contact with and (suspected) exposure to other viral communicable diseases; Z79.01 Long term (current) use of anticoagulants; Z79.899 Other long term (current) drug therapy; Z88.5 Allergy status to narcotic agent; I25.2 Old myocardial infarction; Z87.01 Personal history of pneumonia (recurrent); Z86.711 Personal history of pulmonary embolism; Z90.49 Acquired absence of other specified parts of digestive tract; Z95.810 Presence of automatic (implantable) cardiac defibrillator; Z87.891 Personal history of nicotine dependence; Z86.718 Personal history of other venous thrombosis and embolism; Z82.49 Family history of ischemic heart disease and other diseases of the circulatory system; Z83.3 Family history of diabetes mellitus
CPT/HCPCS: 96376 ×3; 96366 ×3; 96361; 96365; 96375; 99285; 36415; 93005 ×2; 87529; 85379; 88108; 84157; 80053; 80048 ×2; 82945; 84443; 82728; 83615 ×2; 85025 ×2; 85610 ×3; 85730; 86140 ×2; 89050; 81001; 87070; 87205; 84145 ×2; 87635; 71046; 70450; 70460; 71275; 62270; G0378 ×3; C8929; J2270 ×3; J2765; J2405 ×3; J0696 ×4; J1885; Q9950; Q9967 ×2; G0463; 87075; 93306; 99211

== ENCOUNTER 2020-12-12 15:33 | Emergency (ER) | payer MEDICARE ==
[2020-12-12 15:51] VITALS: TEMP 97.8
[2020-12-12] MEDS ORDERED: IPRATROPIUM-ALBUTEROL 3 ML NEB INHALATION STA (16:08)
[2020-12-12] MEDS ORDERED: methylPREDNISolone SOD SUCCI 125 MG/2 ML VIAL IV STA (16:08)
--- NOTE | 2020-12-12 16:12 | ED ---
SOB HPI - General Chief Complaint: Shortness of Breath Stated Complaint: SOB,Weakness Time Seen by Provider: 12/12/20 15:59 Source: patient Mode of arrival: ambulatory Limitations: no limitations - History of Present Illness Initial Comments: Is a 53-year-old female with a history of COPD, CO, pacemaker who presents emergency department for 2 weeks worth of shortness of breath. The patient states that it started a few days after getting her second [place] vaccination. She states that she has had persistent shortness of breath and cough bringing up phlegm. She has been using her albuterol inhaler and nebulizer which does provide her with some relief briefly however her symptoms return. She did see her primary doctor who placed her on azithromycin and prednisone however she feels that these are not improving her symptoms so she came to the emergency department. She denies any fevers or chills. Blood in the nausea however no vomiting. She denies any diarrhea. No abdominal pain. She does deny chest pain. No lower chrie pain or swelling. She has a history of PE in the past after her CO and she is on Coumadin which she states she has been compliant with. She otherwise denies any other acute complaints. - Related Data Home Medications Medication Instructions Recorded Confirmed Warfarin [Coumadin] 5 mg PO W/SUPPER 07/06/20 12/12/20 Atorvastatin [Lipitor] 40 mg PO HS 08/15/20 12/12/20 Spironolactone [Aldactone] 25 mg PO DAILY 08/15/20 12/12/20 Butalb/APAP/Caff 50-325-40Mg 1 tab PO Q6H PRN 12/12/20 12/12/20 [Fioricet 50-325-40] Multivitamins, Thera [Multivitamin 1 tab PO DAILY 12/12/20 12/12/20 (formulary)] [place]-3 Fatty Acids/Fish Oil [Fish 1 cap PO DAILY 12/12/20 12/12/20 Oil 1,000 mg Softgel] Previous Rx's Medication Instructions Recorded Amiodarone [Cordarone] 100 mg PO DAILY #90 tab 04/08/20 carvediloL [Coreg] 6.25 mg PO BID-W/MEALS #180 tab 04/08/20 lisinopriL [Zestril] 2.5 mg PO DAILY #90 tab 04/08/20 Ipratropium-Albuterol Nebulize 3 ml INHALATION Q6HR PRN #15 neb 12/12/20 [Duoneb 0.5 mg-3 mg/3 ml Soln] predniSONE 50 mg PO DAILY #5 tablet 12/12/20 Allergies Allergy/AdvReac Type Severity Reaction Status Date / Time hydromorphone [From Dilaudid] AdvReac Vomiting Verified 12/12/20 17:05 Review of Systems ROS Statement: Those systems with pertinent positive or pertinent negative responses have been documented in the HPI. ROS Other: All systems not noted in ROS Statement are negative. Past Medical History Past Medical History: COPD, Deep Vein Thrombosis (DVT), Hyperlipidemia, Hypertension, Myocardial Infarction (CO), Pneumonia Additional Past Medical History / Comment(s): cardiomyopathy, DVT ( 4 yrs ago), brain aneursym Last Myocardial Infarction Date:: 4 yrs ago History of Any Multi-Drug Resistant Organisms: None Reported Past Surgical History: AICD, Cholecystectomy Additional Past Surgical History / Comment(s): defibrillator Past Anesthesia/Blood Transfusion Reactions: No Reported Reaction Type of Cardiac Device: AICD Device Placement Date:: 2012 Past Psychological History: Anxiety, Depression Smoking Status: Former smoker Past Alcohol Use History: None Reported Past Drug Use History: None Reported - Past Family History Mother Family Medical History: Diabetes Mellitus, Hypertension Father Family Medical History: No Reported History General Exam - General Exam Comments Initial Comments: Constitutional: Awake alert Appears comfortable Head: Normocephalic atraumatic Eyes: no conjunctival injection No scleral icterus EOMI Neck: No JVD Supple Heart: Regular rate rhythm normal S1-S2 no murmurs Lungs: Bilateral expiratory wheezing, no signs of respiratory distress, the patient does have intermittent pursed lip breathing Abdomen: Soft nondistended nontender Extremities: Non edematous DP pulses intact Radial pulses intact Neuro: A&Ox3 No focal neurologic deficits Psych: Appropriate mood and affect Limitations: no limitations Course Vital Signs 12/12/20 12/12/20 12/12/20 15:48 17:55 18:03 Temperature 97.8 F Pulse Rate 105 H 83 84 Respiratory 20 Rate Blood Pressure 138/89 O2 Sat by Pulse 94 L Oximetry 12/12/20 18:20 Temperature Pulse Rate 87 Respiratory 18 Rate Blood Pressure 121/82 O2 Sat by Pulse 94 L Oximetry - Reevaluation(s) Reevaluation #1: EKG showing a ventricular paced rhythm with a rate of 92. I do not see any abnormal ST segment changes or T-wave inversions. QRS is prolonged because of pacemaker. 12/12/20 16:12 Medical Decision Making - Medical Decision Making This 55 year old female who presents emergency room for cough and shortness of breath. The patient was wheezy on examination. Otherwise vital signs were stable throughout her ED stay. Blood work and chest x-ray were performed. Blood work did not reveal any evidence for CO, d-dimer was negative. Chest x- ray did not show any evidence for pneumonia. The patient was improved after DuoNeb and IV steroids. I told the patient I would recommend observation because she's been on outpatient treatment for the last week or so however she stated that she would prefer to go home. Initially I thought that she was taking prednisone at home however she actually states that she's been on a Medrol Dosepak. Going to change this to a steroid burst prednisone 50 mg 5 days. I'm also going to give her DuoNeb treatments for home to use every 6 hours. I told her that she needs to return promptly if she develops worsening shortness of breath, cough, fevers, chills, or any other concerning symptoms. All cautions were answered. - Lab Data Result diagrams: 12/12/20 17:16 12/12/20 17:16 Lab Results 12/12/20 12/12/20 12/12/20 Range/Units 17:16 17:16 17:16 WBC 8.1 (3.8-10.6) k/uL RBC 4.77 (3.80-5.40) m/uL Hgb 14.8 (11.4-16.0) gm/dL Hct 41.0 (34.0-46.0) % MCV 85.9 (80.0-100.0) fL MCH 31.0 (25.0-35.0) pg MCHC 36.1 (31.0-37.0) g/dL RDW 14.9 (11.5-15.5) % Plt Count 150 (150-450) k/uL MPV 8.9 Neutrophils % 68 % Lymphocytes % 21 % Monocytes % 5 % Eosinophils % 5 % Basophils % 0 % Neutrophils # 5.5 (1.3-7.7) k/uL Lymphocytes # 1.7 (1.0-4.8) k/uL Monocytes # 0.4 (0-1.0) k/uL Eosinophils # 0.4 (0-0.7) k/uL Basophils # 0.0 (0-0.2) k/uL Poikilocytosis Slight PT 16.0 H (9.0-12.0) sec INR 1.6 H (<1.2) APTT 26.8 (22.0-30.0) sec D-Dimer 0.32 (<0.60) mg/L FEU Sodium 140 (137-145) mmol/L Potassium 4.2 (3.5-5.1) mmol/L Chloride 107 (98-107) mmol/L Carbon Dioxide 24 (22-30) mmol/L Anion Gap 9 mmol/L BUN 12 (7-17) mg/dL Creatinine 0.71 (0.52-1.04) mg/dL Est GFR (CKD-EPI)AfAm >90 (>60 ml/min/1.73 sqM) Est GFR (CKD-EPI)NonAf >90 (>60 ml/min/1.73 sqM) Glucose 105 H (74-99) mg/dL Plasma Lactic Acid Carlos Eduardo (0.7-2.0) mmol/L Calcium 9.5 (8.4-10.2) mg/dL Total Bilirubin 0.3 (0.2-1.3) mg/dL AST 35 (14-36) U/L ALT 27 (4-34) U/L Alkaline Phosphatase 110 (38-126) U/L Troponin I (0.000-0.034) ng/mL Total Protein 7.0 (6.3-8.2) g/dL Albumin 4.2 (3.5-5.0) g/dL Coronavirus (PCR) (Not Detectd) 12/12/20 12/12/20 12/12/20 Range/Units 17:16 17:16 17:16 WBC (3.8-10.6) k/uL RBC (3.80-5.40) m/uL Hgb (11.4-16.0) gm/dL Hct (34.0-46.0) % MCV (80.0-100.0) fL MCH (25.0-35.0) pg MCHC (31.0-37.0) g/dL RDW (11.5-15.5) % Plt Count (150-450) k/uL MPV Neutrophils % % Lymphocytes % % Monocytes % % Eosinophils % % Basophils % % Neutrophils # (1.3-7.7) k/uL Lymphocytes # (1.0-4.8) k/uL Monocytes # (0-1.0) k/uL Eosinophils # (0-0.7) k/uL Basophils # (0-0.2) k/uL Poikilocytosis PT (9.0-12.0) sec INR (<1.2) APTT (22.0-30.0) sec D-Dimer (<0.60) mg/L FEU Sodium (137-145) mmol/L Potassium (3.5-5.1) mmol/L Chloride (98-107) mmol/L Carbon Dioxide (22-30) mmol/L Anion Gap mmol/L BUN (7-17) mg/dL Creatinine (0.52-1.04) mg/dL Est GFR (CKD-EPI)AfAm (>60 ml/min/1.73 sqM) Est GFR (CKD-EPI)NonAf (>60 ml/min/1.73 sqM) Glucose (74-99) mg/dL Plasma Lactic Acid Carlos Eduardo 1.2 (0.7-2.0) mmol/L Calcium (8.4-10.2) mg/dL Total Bilirubin (0.2-1.3) mg/dL AST (14-36) U/L ALT (4-34) U/L Alkaline Phosphatase (38-126) U/L Troponin I <0.012 (0.000-0.034) ng/mL Total Protein (6.3-8.2) g/dL Albumin (3.5-5.0) g/dL Coronavirus (PCR) Not Detected (Not Detectd) Disposition Clinical Impression: COPD exacerbation Disposition: HOME SELF-CARE Condition: Stable Instructions (If sedation given, give patient instructions): Acute Bronchitis (ED) Prescriptions: Ipratropium-Albuterol Nebulize [Duoneb 0.5 mg-3 mg/3 ml Soln] 3 ml INHALATION Q6HR PRN #15 neb PRN Reason: Wheezing predniSONE 50 mg PO DAILY #5 tablet Is patient prescribed a controlled substance at d/c from ED?: No Referrals: Daniel Mosqueda MD [Primary Care Provider] - 1-2 days
--- NOTE | 2020-12-12 16:43 | XR ---
EXAMINATION TYPE: XR chest 2V DATE OF EXAM: 12/12/2020 COMPARISON: Chest x-ray August 28, 2020 HISTORY: Difficulty in breathing. TECHNIQUE: Frontal and lateral views of the chest are obtained. FINDINGS: There are chronic emphysematous and parenchymal changes bilaterally without suspicious new focal air space opacity, pleural effusion, or pneumothorax seen. The cardiac silhouette size is sta ble and upper limits of normal with multi lead pacemaker/defibrillator redemonstrated. The osseous structures remain intact. IMPRESSION: Chronic changes without acute pulmonary process.
[2020-12-12] MEDS ORDERED: ALPRAZolam 1 MG TAB PO STA (17:20)
[2020-12-12 17:30] LABS: Basophils % (A) 0 %; Eosinophils # (A) 0.4 k/uL (0-0.7); Eosinophils % (A) 5 %; HGB 14.8 gm/dL (11.4-16.0); Lymphocytes # (A) 1.7 k/uL (1.0-4.8); Lymphocytes % (A) 21 %; MCHC 36.1 g/dL (31.0-37.0); MCV 85.9 fL (80.0-100.0); Mean Platelet Volume 8.9; Monocytes # (A) 0.4 k/uL (0-1.0); Monocytes % (A) 5 %; Neutrophils # (A) 5.5 k/uL (1.3-7.7); Neutrophils % (A) 68 %; Platelet Count 150 k/uL (150-450); Poikilocytosis Slight; RBC 4.77 m/uL (3.80-5.40); RDW 14.9 % (11.5-15.5); WBC 8.1 k/uL (3.8-10.6)
[2020-12-12 17:46] LABS: ALT 27 U/L (4-34); AST 35 U/L (14-36); African American GFR (CKD) >90 (>60 ml/min/1.73 sqM); Albumin 4.2 g/dL (3.5-5.0); Alkaline Phosphatase 110 U/L (38-126); Anion Gap 9 mmol/L; Blood Urea Nitrogen 12 mg/dL (7-17); Calcium 9.5 mg/dL (8.4-10.2); Carbon Dioxide 24 mmol/L (22-30); Chloride 107 mmol/L (98-107); Glucose 105 mg/dL (74-99); Non-African American GFR(CKD) >90 (>60 ml/min/1.73 sqM); Potassium 4.2 mmol/L (3.5-5.1); Sodium 140 mmol/L (137-145); Total Bilirubin 0.3 mg/dL (0.2-1.3)
[2020-12-12 17:48] LABS: D-Dimer 0.32 mg/L FEU (<0.60); INR 1.6 (<1.2); Partial Thromboplastin Time 26.8 sec (22.0-30.0)
[2020-12-12 18:21] VITALS: BP 121/82; PULSE 87; RESP 18
== END 2020-12-12 18:21 | disposition home or self-care (01) ==
LOC: EC 15:33
DX: J44.1 Chronic obstructive pulmonary disease with (acute) exacerbation (principal); R53.1 Weakness; I25.2 Old myocardial infarction; I10 Essential (primary) hypertension; E78.5 Hyperlipidemia, unspecified; F32.9 Major depressive disorder, single episode, unspecified; Z86.718 Personal history of other venous thrombosis and embolism; Z87.891 Personal history of nicotine dependence; Z86.711 Personal history of pulmonary embolism; Z20.822 Contact with and (suspected) exposure to COVID-19; Z79.01 Long term (current) use of anticoagulants; Z79.52 Long term (current) use of systemic steroids; Z95.0 Presence of cardiac pacemaker
CPT/HCPCS: 36415; 94640; 93005; 85379; 80053; 83605; 84484; 85025; 85610; 85730; 87635; 71046; 99285; 96374; J2930

== ENCOUNTER 2021-02-02 13:11 | Observation (INO) | payer MEDICARE ==
[2021-02-02] MEDS ORDERED: SODIUM CHLORIDE 0.9% 500 ML 500 ML IV STA (13:25)
[2021-02-02] MEDS ORDERED: LORazepam 2 MG/ML INJ IV STA (13:26)
--- NOTE | 2021-02-02 13:38 | ED ---
General Adult HPI - General Chief complaint: Dizziness Stated complaint: Dizziness Time Seen by Provider: 02/02/21 13:20 Source: patient, EMS, RN notes reviewed, old records reviewed Mode of arrival: EMS Limitations: no limitations - History of Present Illness Initial comments: 55-year-old female who presented with sudden onset nausea, lightheadedness, flushed feeling. She had been helping a neighbor cleaning out her garage. This she states he was hot but she was going in between the inside which was her condition and the outside. She denied any pain complaints including no headache, no chest pain, no abdominal pain. She had dry heaving and felt lightheaded. During transport she was given some IV fluids and was feeling somewhat better at the time of my initial evaluation. She had some persistent nausea. No chest pain. No focal numbness or weakness. No abdominal pain. No preceding symptoms prior to this episode. - Related Data Home Medications Medication Instructions Recorded Confirmed Warfarin [Coumadin] 5 mg PO W/SUPPER 07/06/20 02/02/21 Spironolactone [Aldactone] 25 mg PO DAILY 08/15/20 02/02/21 Atorvastatin [Lipitor] 80 mg PO HS 02/02/21 02/02/21 Previous Rx's Medication Instructions Recorded Amiodarone [Cordarone] 100 mg PO DAILY #90 tab 04/08/20 carvediloL [Coreg] 6.25 mg PO BID-W/MEALS #180 tab 04/08/20 lisinopriL [Zestril] 2.5 mg PO DAILY #90 tab 04/08/20 Allergies Allergy/AdvReac Type Severity Reaction Status Date / Time hydromorphone [From Dilaudid] AdvReac Vomiting Verified 02/02/21 15:02 Review of Systems ROS Statement: Those systems with pertinent positive or pertinent negative responses have been documented in the HPI. ROS Other: All systems not noted in ROS Statement are negative. Past Medical History Past Medical History: COPD, Deep Vein Thrombosis (DVT), Hyperlipidemia, Hyp ertension, Myocardial Infarction (VT), Pneumonia Additional Past Medical History / Comment(s): cardiomyopathy, DVT ( 4 yrs ago), brain aneursym Last Myocardial Infarction Date:: 4 yrs ago History of Any Multi-Drug Resistant Organisms: None Reported Past Surgical History: AICD, Cholecystectomy Additional Past Surgical History / Comment(s): defibrillator Past Anesthesia/Blood Transfusion Reactions: No Reported Reaction Type of Cardiac Device: AICD Device Placement Date:: 2012 Past Psychological History: Anxiety, Depression Smoking Status: Former smoker Past Alcohol Use History: None Reported Past Drug Use History: None Reported - Past Family History Mother Family Medical History: Diabetes Mellitus, Hypertension Father Family Medical History: No Reported History General Exam Limitations: no limitations General appearance: alert, anxious Head exam: Present: atraumatic, normocephalic Eye exam: Present: normal appearance, PERRL ENT exam: Present: mucous membranes dry Neck exam: Present: normal inspection. Absent: tenderness, meningismus Respiratory exam: Present: normal lung sounds bilaterally. Absent: respiratory distress, wheezes Cardiovascular Exam: Present: regular rate, normal rhythm GI/Abdominal exam: Present: soft. Absent: distended, tenderness Extremities exam: Present: normal inspection, normal capillary refill. Absent: calf tenderness Neurological exam: Present: alert, oriented X3, CN II-XII intact. Absent: motor sensory deficit Psychiatric exam: Present: normal affect, anxious Skin exam: Present: warm, diaphoretic, erythema Course Vital Signs 02/02/21 02/02/21 02/02/21 13:18 14:00 14:59 Temperature 98.0 F Pulse Rate 93 77 75 Respiratory 24 20 20 Rate Blood Pressure 118/78 89/60 115/62 O2 Sat by Pulse 94 L 94 L 92 L Oximetry 02/02/21 16:00 Temperature Pulse Rate 70 Respiratory 18 Rate Blood Pressure 107/59 O2 Sat by Pulse 93 L Oximetry EKG Findings - EKG Comments: EKG Findings:: Atrial sensed ventricular paced rhythm, rate of 86, IA interval is 112, QRS duration 176, QTC 560, no significant change compared to prior in November. Medical Decision Making - Medical Decision Making 55 -year-old female presenting with sudden onset nausea, lightheadedness. Patient had no pain complaints. She has stable vitals and a nonfocal neurologic exam. EKG is paced rhythm. She has normal CBC, INR 1.9. CMP and troponin are within normal limits. Chest x-ray is clear. She's given IV fluids, antiemetics in the emergency department. She has persistent symptoms and will be placed in observation for continued hydration and symptomatically control. Case discussed with Dr. Mosqueda who will admit. - Lab Data Result diagrams: 02/02/21 13:45 02/02/21 13:45 Lab Results 02/02/21 02/02/21 02/02/21 Range/Units 13:45 13:45 13:45 WBC 8.7 (3.8-10.6) k/uL RBC 5.04 (3.80-5.40) m/uL Hgb 15.2 (11.4-16.0) gm/dL Hct 43.1 (34.0-46.0) % MCV 85.5 (80.0-100.0) fL MCH 30.3 (25.0-35.0) pg MCHC 35.4 (31.0-37.0) g/dL RDW 15.0 (11.5-15.5) % Plt Count 168 (150-450) k/uL MPV 8.8 Neutrophils % 73 % Lymphocytes % 19 % Monocytes % 5 % Eosinophils % 3 % Basophils % 0 % Neutrophils # 6.3 (1.3-7.7) k/uL Lymphocytes # 1.6 (1.0-4.8) k/uL Monocytes # 0.4 (0-1.0) k/uL Eosinophils # 0.2 (0-0.7) k/uL Basophils # 0.0 (0-0.2) k/uL Poikilocytosis Slight PT 18.7 H (9.0-12.0) sec INR 1.9 H (<1.2) APTT 26.4 (22.0-30.0) sec Sodium 141 (137-145) mmol/L Potassium 3.8 (3.5-5.1) mmol/L Chloride 107 (98-107) mmol/L Carbon Dioxide 24 (22-30) mmol/L Anion Gap 10 mmol/L BUN 12 (7-17) mg/dL Creatinine 0.81 (0.52-1.04) mg/dL Est GFR (CKD-EPI)AfAm >90 (>60 ml/min/1.73 sqM) Est GFR (CKD-EPI)NonAf 82 (>60 ml/min/1.73 sqM) Glucose 109 H (74-99) mg/dL Calcium 9.5 (8.4-10.2) mg/dL Magnesium 2.0 (1.6-2.3) mg/dL Total Bilirubin 0.6 (0.2-1.3) mg/dL AST 31 (14-36) U/L ALT 24 (4-34) U/L Alkaline Phosphatase 97 (38-126) U/L Troponin I (0.000-0.034) ng/mL Total Protein 7.3 (6.3-8.2) g/dL Albumin 4.6 (3.5-5.0) g/dL Lipase 42 (23-300) U/L 02/02/21 Range/Units 13:45 WBC (3.8-10.6) k/uL RBC (3.80-5.40) m/uL Hgb (11.4-16.0) gm/dL Hct (34.0-46.0) % MCV (80.0-100.0) fL MCH (25.0-35.0) pg MCHC (31.0-37.0) g/dL RDW (11.5-15.5) % Plt Count (150-450) k/uL MPV Neutrophils % % Lymphocytes % % Monocytes % % Eosinophils % % Basophils % % Neutrophils # (1.3-7.7) k/uL Lymphocytes # (1.0-4.8) k/uL Monocytes # (0-1.0) k/uL Eosinophils # (0-0.7) k/uL Basophils # (0-0.2) k/uL Poikilocytosis PT (9.0-12.0) sec INR (<1.2) APTT (22.0-30.0) sec Sodium (137-145) mmol/L Potassium (3.5-5.1) mmol/L Chloride (98-107) mmol/L Carbon Dioxide (22-30) mmol/L Anion Gap mmol/L BUN (7-17) mg/dL Creatinine (0.52-1.04) mg/dL Est GFR (CKD-EPI)AfAm (>60 ml/min/1.73 sqM) Est GFR (CKD-EPI)NonAf (>60 ml/min/1.73 sqM) Glucose (74-99) mg/dL Calcium (8.4-10.2) mg/dL Magnesium (1.6-2.3) mg/dL Total Bilirubin (0.2-1.3) mg/dL AST (14-36) U/L ALT (4-34) U/L Alkaline Phosphatase (38-126) U/L Troponin I <0.012 (0.000-0.034) ng/mL Total Protein (6.3-8.2) g/dL Albumin (3.5-5.0) g/dL Lipase (23-300) U/L Disposition Clinical Impression: Dehydration, Nausea and vomiting Disposition: ADMITTED IP TO THIS [facility] Condition: Stable Is patient prescribed a controlled substance at d/c from ED?: No Referrals: Daniel Mosqueda MD [Primary Care Provider] - 1-2 days Decision to Admit Reason: Admit from EC Decision Date: 02/02/21 Decision Time: 16:47
[2021-02-02 14:08] LABS: Basophils % (A) 0 %; Eosinophils # (A) 0.2 k/uL (0-0.7); Eosinophils % (A) 3 %; HCT 43.1 % (34.0-46.0); HGB 15.2 gm/dL (11.4-16.0); Lymphocytes # (A) 1.6 k/uL (1.0-4.8); Lymphocytes % (A) 19 %; MCH 30.3 pg (25.0-35.0); MCHC 35.4 g/dL (31.0-37.0); MCV 85.5 fL (80.0-100.0); Mean Platelet Volume 8.8; Monocytes # (A) 0.4 k/uL (0-1.0); Monocytes % (A) 5 %; Neutrophils # (A) 6.3 k/uL (1.3-7.7); Neutrophils % (A) 73 %; Platelet Count 168 k/uL (150-450); Poikilocytosis Slight; RBC 5.04 m/uL (3.80-5.40); WBC 8.7 k/uL (3.8-10.6)
[2021-02-02 14:21] LABS: ALT 24 U/L (4-34); AST 31 U/L (14-36); African American GFR (CKD) >90 (>60 ml/min/1.73 sqM); Albumin 4.6 g/dL (3.5-5.0); Alkaline Phosphatase 97 U/L (38-126); Anion Gap 10 mmol/L; Blood Urea Nitrogen 12 mg/dL (7-17); Calcium 9.5 mg/dL (8.4-10.2); Carbon Dioxide 24 mmol/L (22-30); Chloride 107 mmol/L (98-107); Glucose 109 mg/dL (74-99); Lipase 42 U/L (23-300); Non-African American GFR(CKD) 82 (>60 ml/min/1.73 sqM); Potassium 3.8 mmol/L (3.5-5.1); Sodium 141 mmol/L (137-145); Total Bilirubin 0.6 mg/dL (0.2-1.3); Total Protein 7.3 g/dL (6.3-8.2)
[2021-02-02 14:26] LABS: INR 1.9 (<1.2); Partial Thromboplastin Time 26.4 sec (22.0-30.0); Prothrombin Time 18.7 sec (9.0-12.0)
--- NOTE | 2021-02-02 14:44 | XR ---
EXAMINATION TYPE: XR chest 2V DATE OF EXAM: 02/02/2021 COMPARISON: 12/12/2020 HISTORY: Chest pain TECHNIQUE: 3 views FINDINGS: There is no heart failure nor confluent pneumonic infiltrate. Costophrenic angles are clear . Heart size is normal. There is left axillary pacemaker. There is no sign of pleural effusion. IMPRESSION: No active cardiopulmonary disease. No change.
[2021-02-02] MEDS ORDERED: ONDANSETRON 4 MG/2 ML VIAL IVP STA (15:17)
[2021-02-02] MEDS: SODIUM CHLORIDE 0.9% 1,000 ML IV SCH (15:22)
[2021-02-02] MEDS ORDERED: ACETAMINOPHEN TAB 325 MG TAB PO PRN (16:19)
[2021-02-02] MEDS ORDERED: NALOXONE 0.4 MG/ML 1 ML VIAL IV PRN (16:19)
[2021-02-02] MEDS ORDERED: LORazepam 2 MG/ML INJ IV PRN (16:21)
[2021-02-02] MEDS ORDERED: ONDANSETRON 4 MG/2 ML VIAL IVP PRN (16:21)
[2021-02-02] MEDS ORDERED: METOCLOPRAMIDE 5 MG/ML 2 ML VIAL IVP STA (17:32)
[2021-02-03 01:14] LABS: Appearance,Urine Clear (Clear); Bilirubin,Urine Negative (Negative); Blood,Urine Negative (Negative); Color,Urine Yellow; Glucose,Urine (UA) Negative (Negative); Ketones,Urine Negative (Negative); Leukocyte Esterase,Urine Negative (Negative); Nitrite,Urine Negative (Negative); PH, Urine 5.5 (5.0-8.0); Protein,Urine Trace (Negative)
[2021-02-03] MEDS: SODIUM CHLORIDE 0.9% 1,000 ML IV SCH (05:57)
[2021-02-03 08:01] VITALS: RESP 14
[2021-02-03 09:52] LABS: Basophils # (A) 0.02 X 10*3/uL (0.00-0.10); Basophils % (A) 0.3 %; Eosinophils # (A) 0.16 X 10*3/uL (0.04-0.35); Eosinophils % (A) 2.5 %; HCT 41.4 % (37.2-46.3); HGB 13.5 g/dL (12.0-15.0); Lymphocytes # (A) 1.89 X 10*3/uL (0.90-5.00); Lymphocytes % (A) 29.1 %; MCH 30.1 pg (27.0-32.0); MCHC 32.6 g/dL (32.0-37.0); MCV 92.2 fL (80.0-97.0); Monocytes # (A) 0.52 X 10*3/uL (0.20-1.00); Neutrophils # (A) 3.89 X 10*3/uL (1.80-7.70); Neutrophils % (A) 59.8 %; Platelet Count 157 X 10*3/uL (140-440); RBC 4.49 X 10*6/uL (4.10-5.20); RDW 15.7 % (11.5-14.5)
[2021-02-03 10:03] LABS: INR 1.77 (0.90-1.11); Prothrombin Time 18.6 sec (9.9-11.9)
[2021-02-03 10:26] LABS: African American GFR (CKD) 95.5 (60.0-200.0); Albumin 3.9 g/dL (3.80-4.90); Albumin/Globulin Ratio 1.95 (1.60-3.17); Anion Gap 8.3 mmol/L (4.00-12.00); Calcium 8.4 mg/dL (8.7-10.3); Carbon Dioxide 22.7 mmol/L (21.6-31.8); Non-African American GFR(CKD) 82.4 (60.0-200.0); Potassium 4.2 mmol/L (3.5-5.5); Total Bilirubin 0.3 mg/dL (0.2-1.2); Total Protein 5.9 g/dL (6.2-8.2)
[2021-02-03 14:20] VITALS: BP 105/66; PULSE 91; TEMP 98.1
[2021-02-03] MEDS ORDERED: WARFARIN 5 MG TAB PO SCH (17:30)
[2021-02-03] MEDS ORDERED: carvediloL 6.25 MG TAB PO SCH (17:30)
[2021-02-03] MEDS ORDERED: ATORVASTATIN 80 MG TAB PO SCH (21:00)
--- NOTE | 2021-02-03 21:43 | HP ---
HISTORY AND PHYSICAL CHIEF COMPLAINT: Nausea and dizziness. HISTORY OF PRESENT ILLNESS: This is an another admission for this 55-year-old white female who has a known cardiomyopathy. She apparently was out working in the garage when it was very hot and humid and she became dizzy and nauseated. She came to emergency room. She denied any focal neurologic deficits, syncope, chest pain, palpitations, abdominal pain, melena, hematochezia, jaundice, hematemesis, etc. It was felt this likely was due to heat and dehydration. She was admitted. Past medical history, family history and personal and social histories reveal that she has history of atrial fibrillation, hyperlipidemia, hypertension, anxiety, depression, coronary artery disease and a history of heart failure. USUAL MEDICATIONS INCLUDE: Fiorinal p.r.n., atorvastatin 10 mg HS, spironolactone 25 once a day, Jantoven 7.5 mg once a day, carvedilol 6.25 twice a day, Percocet p.r.n., Xanax 0.5 t.i.d. p.r.n., trazodone 50 mg HS p.r.n., amiodarone 200 mg once a day, Nitrostat p.r.n. and Ventolin. She also uses Advair 500-50. She does continue to smoke and does not drink. PHYSICAL EXAMINATION: Blood pressure is 121/80 with a pulse of 90, respirations of 34 and she is afebrile. In general, she appeared to be well developed, well nourished, in no acute distress. Skin color is normal, skin is warm and dry. Lymph nodes were not enlarged. Head, ears, eyes, nose, mouth and throat were normal. Neck veins not distended. Thyroid is not enlarged. Chest is clear. Cardiac exam demonstrates what sounds like atrial fibrillation. Abdomen is soft, nontender. Extremities: Normal. Neurologically she is intact. She is admitted to the hospital with diagnoses: 1. Dizziness and nausea probably related to heat exhaustion. 2. Cardiomyopathy. 3. History of congestive heart failure. 4. Coronary artery disease. 5. Atrial fibrillation. PLAN: 1. Bedrest. 2. IV fluids. 3. Follow neurologic symptoms, vital signs and electrolytes. MMODL / IJN: [id number] /
--- NOTE | 2021-02-04 07:45 | DS ---
DISCHARGE SUMMARY DATE OF SERVICE: 02/03/2021 CHIEF COMPLAINT: Dizziness and nausea. HISTORY OF PRESENT ILLNESS AND PHYSICAL EXAMINATION: Details of this lady's history and physical can be found in the initial workup. LABORATORY STUDIES: While she was in a hospital she had laboratory studies, details of which can be found in the laboratory section of her chart. COURSE IN THE HOSPITAL: After admission she was placed on bedrest, started on intravenous fluids and rehydrated and she had no further problems with dizziness or lightheadedness. She was doing well. It was felt she could be discharged home on the and she will go home on her usual activity, diet, medication, and she will follow up in the office in several days. FINAL DIAGNOSIS: 1. Dehydration. 2. Heat exhaustion. 3. Coronary artery disease. 4. Cardiomyopathy. 5. Congestive heart failure. 6. Atrial fibrillation. OPERATIONS: None. CONSULTATION: None. She is improved. MMMARIBEL / MARION: [id number] /
[2021-02-04] MEDS ORDERED: SPIRONOLACTONE 25 MG TAB PO SCH (09:00)
[2021-02-04] MEDS ORDERED: AMIODARONE 100 MG TAB PO SCH (09:00)
== END 2021-02-03 14:55 | disposition home or self-care (01) ==
LOC: EC 13:11 → 6NMEDSUR 16:19
PROVIDERS: ADMIT Family Medicine; ATTEND Family Medicine
DX: E86.0 Dehydration (principal); T67.5XXA Heat exhaustion, unspecified, initial encounter; I11.0 Hypertensive heart disease with heart failure; I50.9 Heart failure, unspecified; I42.9 Cardiomyopathy, unspecified; I48.91 Unspecified atrial fibrillation; I25.10 Atherosclerotic heart disease of native coronary artery without angina pectoris; E78.5 Hyperlipidemia, unspecified; I25.2 Old myocardial infarction; J44.9 Chronic obstructive pulmonary disease, unspecified; I67.1 Cerebral aneurysm, nonruptured; F32.9 Major depressive disorder, single episode, unspecified; F41.9 Anxiety disorder, unspecified; F17.200 Nicotine dependence, unspecified, uncomplicated; X30.XXXA Exposure to excessive natural heat, initial encounter; Z79.01 Long term (current) use of anticoagulants; Z79.899 Other long term (current) drug therapy; Z88.5 Allergy status to narcotic agent; Z87.01 Personal history of pneumonia (recurrent); Z86.718 Personal history of other venous thrombosis and embolism; Z95.810 Presence of automatic (implantable) cardiac defibrillator; Z90.49 Acquired absence of other specified parts of digestive tract; Z82.49 Family history of ischemic heart disease and other diseases of the circulatory system; Z83.3 Family history of diabetes mellitus
CPT/HCPCS: 96376; 96361 ×3; 96374; 96375; 99285; 36415; 93005; 80053 ×2; 83690; 83735; 84484; 85025 ×2; 85610 ×2; 85730; 81003; 71046; G0378 ×2; J2060 ×2; J2765; J2405

== ENCOUNTER 2021-02-10 19:04 | Emergency (ER) | payer MEDICARE ==
[2021-02-10 19:19] VITALS: TEMP 98.1
[2021-02-10] MEDS ORDERED: METOCLOPRAMIDE 5 MG/ML 2 ML VIAL IVP STA (19:43)
[2021-02-10] MEDS ORDERED: diphenhydrAMINE 50 MG/ML 1 ML VIAL IVP STA (19:43)
[2021-02-10] MEDS ORDERED: methylPREDNISolone SOD SUCCI 125 MG/2 ML VIAL IV STA (19:45)
[2021-02-10] MEDS ORDERED: IPRATROPIUM-ALBUTEROL 3 ML NEB INHALATION STA (19:45)
--- NOTE | 2021-02-10 19:57 | ED ---
General Adult HPI - General Chief complaint: Weakness Stated complaint: SOB/Headache Time Seen by Provider: 02/10/21 19:20 Source: patient, RN notes reviewed Mode of arrival: ambulatory Limitations: no limitations - History of Present Illness Initial comments: 55-year-old female with a past medical history of COPD, hyperlipidemia, hypertension, [place], PE, clipped brain aneurysm in July presents to the emergency room for multiple complaints. Patient states over the past week she has had hot flashes and weakness. States that these come and go. Patient has not felt well. Patient also feels slightly short of breath. Does admit to a cough. Denies fevers. Was vaccinated for Coban. Patient also complaining of a migraine headache. Patient states this has been ongoing for the past few days. Patient does report that she occasionally gets these. She saw primary care who started her on Fioricet this week. Patient had an aneurysm clipped in July as well. This was done at [facility] [place] after being transferred from our facility.Patient has no other complaints at this time including chest pain, abdominal pain, or visual changes. - Related Data Home Medications Medication Instructions Recorded Confirmed Warfarin [Coumadin] 5 mg PO W/SUPPER 07/06/20 02/10/21 Spironolactone [Aldactone] 25 mg PO DAILY 08/15/20 02/10/21 Atorvastatin [Lipitor] 80 mg PO HS 02/02/21 02/10/21 Previous Rx's Medication Instructions Recorded Amiodarone [Cordarone] 100 mg PO DAILY #90 tab 04/08/20 carvediloL [Coreg] 6.25 mg PO BID-W/MEALS #180 tab 04/08/20 lisinopriL [Zestril] 2.5 mg PO DAILY #90 tab 04/08/20 predniSONE 50 mg PO DAILY #5 tablet 02/10/21 Allergies Allergy/AdvReac Type Severity Reaction Status Date / Time hydromorphone [From Dilaudid] AdvReac Vomiting Verified 02/10/21 21:52 Review of Systems ROS Statement: Those systems with pertinent positive or pertinent negative responses have been documented in the HPI. ROS Other: All systems not noted in ROS Statement are negative. Past Medical History Past Medical History: COPD, Hyperlipidemia, Hypertension, Myocardial Infarction ([place]), Pneumonia, Pulmonary Embolus (PE) Additional Past Medical History / Comment(s): cardiomyopathy, PE ( 5yrs ago), b rain aneursym Last Myocardial Infarction Date:: 5 yrs ago History of Any Multi-Drug Resistant Organisms: None Reported Past Surgical History: AICD, Cholecystectomy, Heart Catheterization Additional Past Surgical History / Comment(s): AICD defibrillator placed 5 years ago Past Anesthesia/Blood Transfusion Reactions: No Reported Reaction Type of Cardiac Device: AICD Device Placement Date:: 2015 Past Psychological History: Anxiety, Depression Smoking Status: Former smoker Past Alcohol Use History: None Reported Past Drug Use History: None Reported - Past Family History Mother Family Medical History: Diabetes Mellitus, Hypertension Father Family Medical History: No Reported History General Exam Limitations: no limitations General appearance: alert, in no apparent distress Head exam: Present: atraumatic, normocephalic, normal inspection Eye exam: Present: normal appearance, PERRL, EOMI. Absent: scleral icterus, co njunctival injection ENT exam: Present: normal exam, mucous membranes moist Neck exam: Present: normal inspection, full ROM. Absent: tenderness Respiratory exam: Present: normal lung sounds bilaterally. Absent: respiratory distress, wheezes Cardiovascular Exam: Present: regular rate, normal rhythm, normal heart sounds GI/Abdominal exam: Present: soft, normal bowel sounds. Absent: distended, tenderness Neurological exam: Present: alert, oriented X3, other (GCS 15) Course Vital Signs 02/10/21 02/10/21 02/10/21 19:17 20:43 22:00 Temperature 98.1 F Pulse Rate 104 H 84 80 Respiratory 20 18 12 Rate Blood Pressure 147/83 130/85 125/79 O2 Sat by Pulse 93 L 93 L 95 Oximetry EKG Findings - EKG Comments: EKG Findings:: V paced rhythm, ventricular rate 82, QRS duration 170, QTC 553 Medical Decision Making - Medical Decision Making Vitals are stable. Patient is well-appearing. Physical exam does reveal wheezing in the bilateral lung baker. She does have a history of COPD. CBC CMP unremarkable. INR continues to be therapeutic at 2.0. Covert is negative. Troponin is negative. EKG appears similar to prior EKGs. Chest x-ray shows no acute cardiopulmonary process. CT angiogram head shows a nonenhancing left- sided sellar mass that could be thrombosed and aneurysm. Not change in size compared to old computed tomography scan of 08/15/2020. At that time patient had been transferred to [place] and reports she had a aneurysm clipped. I suspect patient is having a COPD exacerbation which is causing her to feel somewhat short of breath. We will start her on steroids and a breathing treatment. She did feel better after this here. Headache is improved although she is requesting additional pain medication so that she can sleep at home. Patient is a ride home. She w will return for any worsening symptoms.I discussed this case with attending Dr. Michael who agrees with this assessment and treatment plan. - Lab Data Result diagrams: 02/10/21 19:57 02/10/21 19:57 Lab Results 02/10/21 02/10/21 02/10/21 Range/Units 19:57 19:57 19:57 WBC 7.7 (3.8-10.6) k/uL RBC 5.21 (3.80-5.40) m/uL Hgb 15.6 (11.4-16.0) gm/dL Hct 45.4 (34.0-46.0) % MCV 87.2 (80.0-100.0) fL MCH 29.9 (25.0-35.0) pg MCHC 34.3 (31.0-37.0) g/dL RDW 15.0 (11.5-15.5) % Plt Count 181 (150-450) k/uL MPV 9.2 Neutrophils % 63 % Lymphocytes % 28 % Monocytes % 5 % Eosinophils % 3 % Basophils % 1 % Neutrophils # 4.9 (1.3-7.7) k/uL Lymphocytes # 2.1 (1.0-4.8) k/uL Monocytes # 0.4 (0-1.0) k/uL Eosinophils # 0.2 (0-0.7) k/uL Basophils # 0.0 (0-0.2) k/uL Poikilocytosis Slight PT 19.4 H (9.0-12.0) sec INR 2.0 H (<1.2) APTT 27.9 (22.0-30.0) sec Sodium 140 (137-145) mmol/L Potassium 4.1 (3.5-5.1) mmol/L Chloride 104 (98-107) mmol/L Carbon Dioxide 27 (22-30) mmol/L Anion Gap 9 mmol/L BUN 11 (7-17) mg/dL Creatinine 0.78 (0.52-1.04) mg/dL Est GFR (CKD-EPI)AfAm >90 (>60 ml/min/1.73 sqM) Est GFR (CKD-EPI)NonAf 86 (>60 ml/min/1.73 sqM) Glucose 99 (74-99) mg/dL Calcium 9.7 (8.4-10.2) mg/dL Magnesium 2.0 (1.6-2.3) mg/dL Total Bilirubin 0.6 (0.2-1.3) mg/dL AST 33 (14-36) U/L ALT 24 (4-34) U/L Alkaline Phosphatase 96 (38-126) U/L Troponin I (0.000-0.034) ng/mL Total Protein 7.6 (6.3-8.2) g/dL Albumin 4.8 (3.5-5.0) g/dL Coronavirus (PCR) (Not Detectd) 02/10/21 02/10/21 Range/Units 19:57 19:57 WBC (3.8-10.6) k/uL RBC (3.80-5.40) m/uL Hgb (11.4-16.0) gm/dL Hct (34.0-46.0) % MCV (80.0-100.0) fL MCH (25.0-35.0) pg MCHC (31.0-37.0) g/dL RDW (11.5-15.5) % Plt Count (150-450) k/uL MPV Neutrophils % % Lymphocytes % % Monocytes % % Eosinophils % % Basophils % % Neutrophils # (1.3-7.7) k/uL Lymphocytes # (1.0-4.8) k/uL Monocytes # (0-1.0) k/uL Eosinophils # (0-0.7) k/uL Basophils # (0-0.2) k/uL Poikilocytosis PT (9.0-12.0) sec INR (<1.2) APTT (22.0-30.0) sec Sodium (137-145) mmol/L Potassium (3.5-5.1) mmol/L Chloride (98-107) mmol/L Carbon Dioxide (22-30) mmol/L Anion Gap mmol/L BUN (7-17) mg/dL Creatinine (0.52-1.04) mg/dL Est GFR (CKD-EPI)AfAm (>60 ml/min/1.73 sqM) Est GFR (CKD-EPI)NonAf (>60 ml/min/1.73 sqM) Glucose (74-99) mg/dL Calcium (8.4-10.2) mg/dL Magnesium (1.6-2.3) mg/dL Total Bilirubin (0.2-1.3) mg/dL AST (14-36) U/L ALT (4-34) U/L Alkaline Phosphatase (38-126) U/L Troponin I <0.012 (0.000-0.034) ng/mL Total Protein (6.3-8.2) g/dL Albumin (3.5-5.0) g/dL Coronavirus (PCR) Not Detected (Not Detectd) Disposition Clinical Impression: Headache, COPD exacerbation Disposition: HOME SELF-CARE Condition: Good Instructions (If sedation given, give patient instructions): Acute Headache (ED) Additional Instructions: Continue breathing treatments at home. Please take medications as directed. Follow-up with your doctor in one to 2 days. Return to the emergency room for any worsening symptoms. Prescriptions: predniSONE 50 mg PO DAILY #5 tablet Is patient prescribed a controlled substance at d/c from ED?: No Referrals: Daniel Mosqueda MD [Primary Care Provider] - 1-2 days Time of Disposition: 22:44
[2021-02-10 20:41] LABS: Basophils % (A) 1 %; Eosinophils # (A) 0.2 k/uL (0-0.7); Eosinophils % (A) 3 %; HCT 45.4 % (34.0-46.0); HGB 15.6 gm/dL (11.4-16.0); Lymphocytes # (A) 2.1 k/uL (1.0-4.8); Lymphocytes % (A) 28 %; MCH 29.9 pg (25.0-35.0); MCHC 34.3 g/dL (31.0-37.0); MCV 87.2 fL (80.0-100.0); Mean Platelet Volume 9.2; Monocytes # (A) 0.4 k/uL (0-1.0); Monocytes % (A) 5 %; Neutrophils # (A) 4.9 k/uL (1.3-7.7); Neutrophils % (A) 63 %; Platelet Count 181 k/uL (150-450); Poikilocytosis Slight; RBC 5.21 m/uL (3.80-5.40); WBC 7.7 k/uL (3.8-10.6)
[2021-02-10 20:50] LABS: ALT 24 U/L (4-34); AST 33 U/L (14-36); African American GFR (CKD) >90 (>60 ml/min/1.73 sqM); Albumin 4.8 g/dL (3.5-5.0); Alkaline Phosphatase 96 U/L (38-126); Anion Gap 9 mmol/L; Blood Urea Nitrogen 11 mg/dL (7-17); Calcium 9.7 mg/dL (8.4-10.2); Carbon Dioxide 27 mmol/L (22-30); Chloride 104 mmol/L (98-107); Glucose 99 mg/dL (74-99); Non-African American GFR(CKD) 86 (>60 ml/min/1.73 sqM); Potassium 4.1 mmol/L (3.5-5.1); Sodium 140 mmol/L (137-145); Total Bilirubin 0.6 mg/dL (0.2-1.3); Total Protein 7.6 g/dL (6.3-8.2)
[2021-02-10 21:01] LABS: Partial Thromboplastin Time 27.9 sec (22.0-30.0); Prothrombin Time 19.4 sec (9.0-12.0)
--- NOTE | 2021-02-10 21:14 | XR ---
EXAMINATION TYPE: XR chest 2V DATE OF EXAM: 02/10/2021 COMPARISON: 02/02/2021 HISTORY: Weakness TECHNIQUE: 3 views FINDINGS: There is no heart failure nor confluent pneumonic infiltrate. There are no hilar masses. Co stophrenic angles are clear. There is left axillary pacemaker. There are chest leads. Bony thorax is intact. IMPRESSION: No active cardiopulmonary disease. No change.
--- NOTE | 2021-02-10 21:40 | CT ---
EXAMINATION TYPE: CT brain wo con DATE OF EXAM: 02/10/2021 COMPARISON: 08/30/2020 HISTORY: SARAH. Hx clipped aneurysm. CT DLP: 1165 mGycm Automated exposure control for dose reduction was used. Exam performed without contrast. Ventricles have normal size. There is no mass effect nor midline shift. There is no sign of intracran ial hemorrhage. There is 13 mm hypodensity mass at the sella turcica on the left side of midline. Thi s could be giant aneurysm of the left internal carotid artery. The calvarium is intact. There is no e vidence of posterior fossa mass. IMPRESSION: Left side sellar mass could be a giant aneurysm and not changed compared to old exam.
--- NOTE | 2021-02-10 21:55 | CT ---
EXAMINATION TYPE: CT angio head DATE OF EXAM: 02/10/2021 COMPARISON: 08/15/2020 HISTORY: Headache, hx clipped aneurysm CT DLP: 637.6 mGycm Automated exposure control for dose reduction was used. CONTRAST: Performed with IV Contrast, patient injected with 100 mL of Isovue 370. There are 3-D post processed images. Images obtained from the skull base to the vertex of the brain w ith IV contrast. There is arterial flow in the anterior middle and posterior cerebral arteries. There is arterial flow in both internal carotid arteries. There is rounded 12 mm mass on the left side of the cervical of W illis at the sella turcica. This has intermediate density slightly above brain parenchyma. There is n o enhancement. There is no evidence of intracranial arterial stenosis. There is no evidence of neovascularity. There is normal enhancement of the venous sinuses. IMPRESSION: Nonenhancing left side sellar mass. This could be thrombosed giant aneurysm. I would also consider me ningioma. This is not changed in size compared to the old CT scan of 08/15/2020.
[2021-02-10] MEDS ORDERED: MORPHINE SULFATE 4 MG/ML SYRINGE IVP STA (22:15)
[2021-02-10 22:18] VITALS: BP 125/79; PULSE 80; RESP 12
[2021-02-10 22:27] LABS: Appearance,Urine Clear (Clear); Bilirubin,Urine Negative (Negative); Blood,Urine Negative (Negative); Color,Urine Yellow; Glucose,Urine (UA) Negative (Negative); Ketones,Urine Negative (Negative); Leukocyte Esterase,Urine Negative (Negative); Nitrite,Urine Negative (Negative); Protein,Urine Trace (Negative); Urobilinogen,Urine <2.0 mg/dL (<2.0)
[2021-02-10 23:32] LABS: Specific Gravity,Urine >1.050 (1.001-1.035)
== END 2021-02-10 23:00 | disposition home or self-care (01) ==
LOC: EC 19:04
DX: J44.1 Chronic obstructive pulmonary disease with (acute) exacerbation (principal); R51.9 Headache, unspecified; I10 Essential (primary) hypertension; I25.2 Old myocardial infarction; E78.5 Hyperlipidemia, unspecified; Z79.01 Long term (current) use of anticoagulants; Z79.52 Long term (current) use of systemic steroids; Z79.899 Other long term (current) drug therapy; Z86.711 Personal history of pulmonary embolism; Z87.891 Personal history of nicotine dependence; Z88.5 Allergy status to narcotic agent; Z95.810 Presence of automatic (implantable) cardiac defibrillator; Z82.49 Family history of ischemic heart disease and other diseases of the circulatory system; Z83.3 Family history of diabetes mellitus
CPT/HCPCS: 36415; 93005; 80053; 83735; 84484; 85025; 85610; 85730; 81003; 87635; 71046; 70496; 70450; 99285; 96374; 96375 ×3; J2270; J1200; J2765; J2930; Q9967

== ENCOUNTER 2021-03-25 09:54 | Observation (INO) | payer MEDICARE ==
[2021-03-25] MEDS ORDERED: SODIUM CHLORIDE 0.9% 500 ML 500 ML IV STA (10:20)
[2021-03-25] MEDS ORDERED: LORazepam 2 MG/ML INJ IV STA ×2 (10:20→12:35)
[2021-03-25] MEDS ORDERED: IPRATROPIUM-ALBUTEROL 3 ML NEB INHALATION STA (10:46)
--- NOTE | 2021-03-25 10:46 | ED ---
General Adult HPI - General Chief complaint: Shortness of Breath Stated complaint: Chest Pain, SOB Time Seen by Provider: 03/25/21 10:03 Source: patient Mode of arrival: ambulatory Limitations: no limitations - History of Present Illness Initial comments: Patient is a 55-year-old female, with history of cardiomyopathy, PE, brain aneurysm, COPD, presenting to the emergency Department with complaints of cough, shortness of breath over the past few days and then chest pain that started about midnight last night. She states that she's had this cough for about 2-3 days now, dry in nature and then about midnight last night he started feeling a dull ache in the left side of her chest with some radiation to her left shoulder. She's been having hot and cold chills as well, some mild shortness of breath. She is on Coumadin, has AICD, placed about 5 years ago. She denies any dizziness or lightheadedness, no headache, no nausea or vomiting, no abdominal pain. She does have a history of anxiety and feels that she is very anxious right now. She did not take any Xanax today. She is a former smoker. She has no further complaints at this time. Upon arrival to the ER, she is afebrile, pulse is 113, 94% on room air, rest of vitals normal. - Related Data Home Medications Medication Instructions Recorded Confirmed Warfarin [Coumadin] 5 mg PO W/SUPPER 07/06/20 02/10/21 Spironolactone [Aldactone] 25 mg PO DAILY 08/15/20 02/10/21 Atorvastatin [Lipitor] 80 mg PO HS 02/02/21 02/10/21 Previous Rx's Medication Instructions Recorded Amiodarone [Cordarone] 100 mg PO DAILY #90 tab 04/08/20 carvediloL [Coreg] 6.25 mg PO BID-W/MEALS #180 tab 04/08/20 lisinopriL [Zestril] 2.5 mg PO DAILY #90 tab 04/08/20 predniSONE 50 mg PO DAILY #5 tablet 02/10/21 Allergies Allergy/AdvReac Type Severity Reaction Status Date / Time hydromorphone [From Dilaudid] AdvReac Vomiting Verified 03/25/21 10:00 Review of Systems ROS Statement: Those systems with pertinent positive or pertinent negative responses have been documented in the HPI. ROS Other: All systems not noted in ROS Statement are negative. Past Medical History Past Medical History: COPD, Hyperlipidemia, Hypertension, Myocardial Infarction ([place]), Pneumonia, Pulmonary Embolus (PE) Additional Past Medical History / Comment(s): cardiomyopathy, PE ( 5yrs ago), brain aneursym Last Myocardial Infarction Date:: 5 yrs ago History of Any Multi-Drug Resistant Organisms: None Reported Past Surgical History: AICD, Cholecystectomy, Heart Catheterization Additional Past Surgical History / Comment(s): AICD defibrillator placed 5 years ago Past Anesthesia/Blood Transfusion Reactions: No Reported Reaction Type of Cardiac Device: AICD Device Placement Date:: 2015 Past Psychological History: Anxiety, Depression Smoking Status: Former smoker Past Alcohol Use History: None Reported Past Drug Use History: None Reported - Past Family History Mother Family Medical History: Diabetes Mellitus, Hypertension Father Family Medical History: No Reported History General Exam - General Exam Comments Initial Comments: GENERAL: Patient is well-developed and well-nourished. Patient is nontoxic and in mild distress. HEAD: Atraumatic, normocephalic. EYES: Pupils equal round and reactive to light, extraocular movements intact, sclera anicteric, conjunctiva are normal. Eyelids were unremarkable. ENT: TMs normal, nares patent, oropharynx clear without exudates. Moist mucous membranes. NECK: Normal range of motion, supple without lymphadenopathy or JVD. LUNGS: Unlabored respirations. Mild scattered wheezes throughout. HEART: Tachycardia rate and rhythm without murmurs, rubs or gallops. ABDOMEN: Soft, nontender, normoactive bowel sounds. No guarding, no rebound. No masses appreciated. : Deferred MUSCULOSKELETAL: Normal extremities with adequate strength and normal range of motion, no pitting or edema. No clubbing or cyanosis. NEUROLOGICAL: Patient is alert and oriented x 3. Motor and sensory are also intact. Cranial nerves II through XII grossly intact. Symmetrical smile. Normal speech, normal gait. PSYCH: Normal mood, normal affect. SKIN: Warm, Dry, normal turgor, no rashes or lesions noted. Limitations: no limitations Course Vital Signs 03/25/21 03/25/21 03/25/21 09:56 11:08 11:15 Temperature 98.0 F Pulse Rate 113 H 100 100 Respiratory 18 20 18 Rate Blood Pressure 133/89 O2 Sat by Pulse 94 L Oximetry EKG Findings - EKG Comments: EKG Findings:: Ventricular paced rhythm, no signs of acute ST segment elevation. This is comparable to her previous on 02/10/2021. Ventricular rate 107, QRS duration 168, QTC 426. Reviewed with Dr. Burciaga. Medical Decision Making - Medical Decision Making Patient is a 55-year-old female with history of COPD, cardiomyopathy, PE, brain aneurysm, on Coumadin and AICD placed, presenting with cough, congestion for the past 2-3 days and chest pain that started at midnight today. She is afebrile today on arrival, tachycardia at 113, 94% on room air. EKG shows a ventricular paced rhythm, no signs of acute ST segment elevation. X-ray shows a possible small pleural effusion on the right side however no other acute process, and labs are all within normal limits including a negative troponin and BNP is 29. Rapid Covid is negative. Patient continues to be lower on room O2 anywhere from 88-92 on room air. Patient did receive some fluids, breathing treatment and some Ativan for her anxiety. She is resting comfortably at this time. Patient be admitted for COPD exacerbation, chest pain rule out. We will give her some steroids, keep her on oxygen and do serial troponins. Patient accepted by Dr. Mosqueda, cardiac consult. Case discussed with Dr. Burciaga. - Lab Data Result diagrams: 03/25/21 10:25 03/25/21 10:25 Lab Results 03/25/21 03/25/21 03/25/21 Range/Units 10:25 10:25 10:25 WBC 9.0 (3.8-10.6) k/uL RBC 5.34 (3.80-5.40) m/uL Hgb 16.2 H (11.4-16.0) gm/dL Hct 47.3 H (34.0-46.0) % MCV 88.6 (80.0-100.0) fL MCH 30.4 (25.0-35.0) pg MCHC 34.3 (31.0-37.0) g/dL RDW 14.9 (11.5-15.5) % Plt Count 179 (150-450) k/uL MPV 10.3 Neutrophils % 60 % Lymphocytes % 30 % Monocytes % 5 % Eosinophils % 3 % Basophils % 1 % Neutrophils # 5.4 (1.3-7.7) k/uL Lymphocytes # 2.7 (1.0-4.8) k/uL Monocytes # 0.5 (0-1.0) k/uL Eosinophils # 0.2 (0-0.7) k/uL Basophils # 0.1 (0-0.2) k/uL Poikilocytosis Slight PT 10.6 (9.0-12.0) sec INR 1.0 (<1.2) APTT 22.0 (22.0-30.0) sec Sodium 140 (137-145) mmol/L Potassium 3.7 (3.5-5.1) mmol/L Chloride 105 (98-107) mmol/L Carbon Dioxide 24 (22-30) mmol/L Anion Gap 11 mmol/L BUN 14 (7-17) mg/dL Creatinine 0.77 (0.52-1.04) mg/dL Est GFR (CKD-EPI)AfAm >90 (>60 ml/min/1.73 sqM) Est GFR (CKD-EPI)NonAf 87 (>60 ml/min/1.73 sqM) Glucose 125 H (74-99) mg/dL Calcium 10.2 (8.4-10.2) mg/dL Magnesium 1.8 (1.6-2.3) mg/dL Total Bilirubin 0.6 (0.2-1.3) mg/dL AST 24 (14-36) U/L ALT 20 (4-34) U/L Alkaline Phosphatase 89 (38-126) U/L Troponin I (0.000-0.034) ng/mL NT-Pro-B Natriuret Pep pg/mL Total Protein 7.4 (6.3-8.2) g/dL Albumin 4.4 (3.5-5.0) g/dL Coronavirus (PCR) (Not Detectd) 03/25/21 03/25/21 03/25/21 Range/Units 10:25 10:25 10:25 WBC (3.8-10.6) k/uL RBC (3.80-5.40) m/uL Hgb (11.4-16.0) gm/dL Hct (34.0-46.0) % MCV (80.0-100.0) fL MCH (25.0-35.0) pg MCHC (31.0-37.0) g/dL RDW (11.5-15.5) % Plt Count (150-450) k/uL MPV Neutrophils % % Lymphocytes % % Monocytes % % Eosinophils % % Basophils % % Neutrophils # (1.3-7.7) k/uL Lymphocytes # (1.0-4.8) k/uL Monocytes # (0-1.0) k/uL Eosinophils # (0-0.7) k/uL Basophils # (0-0.2) k/uL Poikilocytosis PT (9.0-12.0) sec INR (<1.2) APTT (22.0-30.0) sec Sodium (137-145) mmol/L Potassium (3.5-5.1) mmol/L Chloride (98-107) mmol/L Carbon Dioxide (22-30) mmol/L Anion Gap mmol/L BUN (7-17) mg/dL Creatinine (0.52-1.04) mg/dL Est GFR (CKD-EPI)AfAm (>60 ml/min/1.73 sqM) Est GFR (CKD-EPI)NonAf (>60 ml/min/1.73 sqM) Glucose (74-99) mg/dL Calcium (8.4-10.2) mg/dL Magnesium (1.6-2.3) mg/dL Total Bilirubin (0.2-1.3) mg/dL AST (14-36) U/L ALT (4-34) U/L Alkaline Phosphatase (38-126) U/L Troponin I <0.012 (0.000-0.034) ng/mL NT-Pro-B Natriuret Pep 29 pg/mL Total Protein (6.3-8.2) g/dL Albumin (3.5-5.0) g/dL Coronavirus (PCR) Not Detected (Not Detectd) Disposition Clinical Impression: COPD exacerbation, Chest pain Disposition: ADMITTED IP TO THIS HOSP Condition: Stable Referrals: Daniel Mosqueda MD [Primary Care Provider] - 1-2 days Decision Date: 03/25/21 Decision Time: 12:21
[2021-03-25 11:12] LABS: Basophils # (A) 0.1 k/uL (0-0.2); Basophils % (A) 1 %; Eosinophils # (A) 0.2 k/uL (0-0.7); Eosinophils % (A) 3 %; HCT 47.3 % (34.0-46.0); HGB 16.2 gm/dL (11.4-16.0); Lymphocytes # (A) 2.7 k/uL (1.0-4.8); Lymphocytes % (A) 30 %; MCH 30.4 pg (25.0-35.0); MCHC 34.3 g/dL (31.0-37.0); MCV 88.6 fL (80.0-100.0); Mean Platelet Volume 10.3; Monocytes # (A) 0.5 k/uL (0-1.0); Monocytes % (A) 5 %; Neutrophils # (A) 5.4 k/uL (1.3-7.7); Neutrophils % (A) 60 %; Platelet Count 179 k/uL (150-450); Poikilocytosis Slight; RBC 5.34 m/uL (3.80-5.40); RDW 14.9 % (11.5-15.5)
[2021-03-25 11:22] LABS: ALT 20 U/L (4-34); AST 24 U/L (14-36); African American GFR (CKD) >90 (>60 ml/min/1.73 sqM); Albumin 4.4 g/dL (3.5-5.0); Alkaline Phosphatase 89 U/L (38-126); Anion Gap 11 mmol/L; Blood Urea Nitrogen 14 mg/dL (7-17); Calcium 10.2 mg/dL (8.4-10.2); Carbon Dioxide 24 mmol/L (22-30); Chloride 105 mmol/L (98-107); Glucose 125 mg/dL (74-99); Magnesium 1.8 mg/dL (1.6-2.3); Non-African American GFR(CKD) 87 (>60 ml/min/1.73 sqM); Potassium 3.7 mmol/L (3.5-5.1); Sodium 140 mmol/L (137-145); Total Bilirubin 0.6 mg/dL (0.2-1.3); Total Protein 7.4 g/dL (6.3-8.2)
--- NOTE | 2021-03-25 11:23 | XR ---
EXAMINATION TYPE: XR chest 2V DATE OF EXAM: 03/25/2021 COMPARISON: 02/10/2021 INDICATION: Chest pain TECHNIQUE: Frontal and lateral views of the chest are obtained. FINDINGS: The heart size is normal. The pulmonary vasculature is normal. There is mild blunting of the right costophrenic angle. Atelectasis or small effusion may be present. . Pacemaker overlies left chest. IMPRESSION: 1. Minimal atelectasis or possibly effusion at the right costophrenic angle.
[2021-03-25 11:30] LABS: Prothrombin Time 10.6 sec (9.0-12.0)
[2021-03-25] MEDS ORDERED: IPRATROPIUM-ALBUTEROL 3 ML NEB INHALATION PRN (12:17)
[2021-03-25] MEDS ORDERED: methylPREDNISolone SOD SUCCI 125 MG/2 ML VIAL IV STA (12:17)
[2021-03-25] MEDS ORDERED: NITROGLYCERIN SL TABS 0.4 MG TAB SUBLINGUAL PRN (12:18)
[2021-03-25] MEDS ORDERED: WARFARIN 7.5 MG TAB PO ONE (23:30)
[2021-03-25] MEDS ORDERED: WARFARIN 7.5 MG TAB PO SCH (23:30)
[2021-03-25] MEDS: carvediloL 6.25 MG TAB PO SCH (23:56)
[2021-03-25] MEDS: busPIRone HCl 5 MG TAB PO SCH (23:56)
[2021-03-25] MEDS: SPIRONOLACTONE 25 MG TAB PO SCH (23:56)
[2021-03-26] MEDS: ACETAMINOPHEN TAB 325 MG TAB PO PRN (05:15)
[2021-03-26] MEDS: AMIODARONE 100 MG TAB PO SCH (08:58)
[2021-03-26] MEDS: busPIRone HCl 5 MG TAB PO SCH ×3 (08:58→21:37)
[2021-03-26] MEDS: carvediloL 6.25 MG TAB PO SCH ×3 (08:58→18:12)
--- NOTE | 2021-03-26 09:51 | P.CRDCN ---
History of Present Illness Consult date: 03/26/21 History of present illness: HISTORY OF PRESENT ILLNESS: This is a 55-year-old female with a past medical history significant for nonischemic cardiomyopathy with previous ICD implantation, pulmonary embolism on anticoagulation with Coumadin, ventricular fibrillation, hypertension, COPD, and former nicotine dependence. Patient used to follow in the office with Dr Reece but has not been seen since 2017 secondary to loss of insurance. We have been asked to see the patient in consultation for chest pain. Patient examined at the bedside. Patient states about 3 days ago she began having a cough. She reports sputum production that is green-yellowish in color. She began having a dull pain in the left side of her chest and the left side of her back. She currently denies chest pain or pressure. Denies shortness of breath. Denies dizziness or lightheadedness. Patient states she is a former smoker and quit smoking approximately 5 years ago. EKG reveals paced rhythm with a heart rate of 107 Chest xray minimal atelectasis or possibly effusion at the right costophrenic angle Laboratory data: WBC 9.0. Hemoglobin 16.2. Platelet count 179. Sodium 140. Potassium 3.7. BUN 14. Creatinine 0.77. Magnesium 1.8. ProBNP 29. Troponin negative 3. Current home cardiac medications include Coumadin 7.5 mg daily, Lipitor 10 mg daily, lisinopril 2.5 mg daily, carvedilol 6.25 mg twice a day, spironolactone 25 mg daily, and amiodarone 100 mg daily Most recent echocardiogram obtained in August 2020 revealed ejection fraction 40-45%. Mild mitral regurgitation. Mild tricuspid regurgitation. Patient underwent cardiac catheterization in 2011 revealing normal coronary arteries. Ejection fraction at that time was 10-15% REVIEW OF SYSTEMS: At the time of my exam: CONSTITUTIONAL: Denies fever or chills. HEENT: Denies blurred vision, vision changes, or eye pain. Denies hemoptysis CARDIOVASCULAR: Denies chest pain. Denies orthopnea. Denies PND. Denies palpitations RESPIRATORY: Denies shortness of breath. GASTROINTESTINAL: Denies abdominal pain. Denies nausea or vomiting. HEMATOLOGIC: Denies bleeding disorders. GENITOURINARY: Denies any blood in urine. SKIN: Denies pruitis. Denies rash. PHYSICAL EXAM: VITAL SIGNS: Reviewed. GENERAL: Well-developed in no acute distress. HEENT: Head is normocephalic. Pupils are equal, round. Sclerae anicteric. Mucous membranes of the mouth are moist. Neck supple. No JVD or thyromegaly LUNGS: Respirations even and unlabored. Lungs diminished to auscultation bilaterally. HEART: Regular rate and rhythm. S1 and S2 heard. ABDOMEN: Soft. Nondistended. Nontender. EXTREMITIES: Normal range of motion. No clubbing or cyanosis. Peripheral pulses intact. No lower extremity edema NEUROLOGIC: Awake and alert. Oriented x 3. ASSESSMENT: Chest pain, atypical, troponin negative 3 Cough with sputum production x 3 days, rule out pulmonary process Nonischemic remapped with previous ICD implantation History of pulmonary embolism on anticoagulation with Coumadin History of ventricular fibrillation Hypertension COPD Former nicotine dependence PLAN: An acute coronary event has been ruled out Resume home cardiac medications Obtain 2D echo to assess cardiac structure and function Interrogate AICD ([place]) Patient may be discharged home this afternoon from a cardiac perspective Nurse practitioner note has been reviewed by physician. Signing provider agrees with the documented findings, assessment, and plan of care. Past Medical History Past Medical History: COPD, Hyperlipidemia, Hypertension, Myocardial Infarction ([place]), Pneumonia, Pulmonary Embolus ([place]) Additional Past Medical History / Comment(s): cardiomyopathy, PE ( 5yrs ago), brain aneursym Last Myocardial Infarction Date:: 5 yrs ago History of Any Multi-Drug Resistant Organisms: None Reported Past Surgical History: AICD, Cholecystectomy, Heart Catheterization Additional Past Surgical History / Comment(s): AICD defibrillator placed 5 years ago Past Anesthesia/Blood Transfusion Reactions: No Reported Reaction Type of Cardiac Device: AICD Device Placement Date:: 2015 Past Psychological History: Anxiety, Depression Smoking Status: Former smoker Past Alcohol Use History: None Reported Past Drug Use History: None Reported - Past Family History Mother Family Medical History: Diabetes Mellitus, Hypertension Father Family Medical History: No Reported History Medications and Allergies Home Medications Medication Instructions Recorded Confirmed Type Amiodarone [Cordarone] 100 mg PO DAILY #90 tab 04/08/20 03/25/21 Rx carvediloL [Coreg] 6.25 mg PO BID-W/MEALS #180 tab 04/08/20 03/25/21 Rx lisinopriL [Zestril] 2.5 mg PO DAILY #90 tab 04/08/20 03/25/21 Rx Spironolactone [Aldactone] 25 mg PO W/SUPPER 08/15/20 03/25/21 History Atorvastatin [Lipitor] 10 mg PO HS 03/25/21 03/25/21 History Warfarin [Coumadin] 7.5 mg PO W/SUPPER 03/25/21 03/25/21 History Allergies Allergy/AdvReac Type Severity Reaction Status Date / Time hydromorphone [From Dilaudid] AdvReac Vomiting Verified 03/25/21 12:50 Physical Exam Vitals: Vital Signs Temp Pulse Pulse Resp BP BP Pulse Ox 03/26/21 07:00 98.2 F 92 16 122/68 91 L 03/26/21 02:00 18 03/26/21 00:55 98.2 F 113 H 18 115/71 91 L 03/25/21 21:58 98.0 F 93 18 117/73 93 L 03/25/21 20:30 98.1 F 103 H 18 124/70 90 L 03/25/21 20:00 18 03/25/21 16:22 98.0 F 95 18 109/65 92 L 03/25/21 16:16 101 H 18 03/25/21 16:06 100 18 03/25/21 12:33 95 17 111/81 92 L 03/25/21 11:15 100 18 03/25/21 11:08 100 20 03/25/21 09:56 98.0 F 113 H 18 133/89 94 L Intake and Output 03/25/21 03/26/21 03/26/21 22:59 06:59 14:59 Other: Voiding Method Toilet Toilet # Voids 1 2 Results 03/25/21 10:25 03/25/21 10:25 Cardiac Enzymes 03/25/21 03/25/21 03/25/21 Range/Units 10:25 10:25 13:55 AST 24 (14-36) U/L Troponin I <0.012 <0.012 (0.000-0.034) ng/mL 03/25/21 Range/Units 17:15 AST (14-36) U/L Troponin I <0.012 (0.000-0.034) ng/mL Coagulation 03/25/21 Range/Units 10:25 PT 10.6 (9.0-12.0) sec APTT 22.0 (22.0-30.0) sec CBC 03/25/21 Range/Units 10:25 WBC 9.0 (3.8-10.6) k/uL RBC 5.34 (3.80-5.40) m/uL Hgb 16.2 H (11.4-16.0) gm/dL Hct 47.3 H (34.0-46.0) % Plt Count 179 (150-450) k/uL Comprehensive Metabolic Panel 03/25/21 Range/Units 10:25 Sodium 140 (137-145) mmol/L Potassium 3.7 (3.5-5.1) mmol/L Chloride 105 (98-107) mmol/L Carbon Dioxide 24 (22-30) mmol/L BUN 14 (7-17) mg/dL Creatinine 0.77 (0.52-1.04) mg/dL Glucose 125 H (74-99) mg/dL Calcium 10.2 (8.4-10.2) mg/dL AST 24 (14-36) U/L ALT 20 (4-34) U/L Alkaline Phosphatase 89 (38-126) U/L Total Protein 7.4 (6.3-8.2) g/dL Albumin 4.4 (3.5-5.0) g/dL Current Medications Generic Name Dose Route Start Last Admin Trade Name Freq PRN Reason Stop Dose Admin Acetaminophen 650 mg 03/26/21 05:12 03/26/21 05:15 Acetaminophen Tab 325 Mg Tab PO 650 mg Q6HR PRN Administration Fever and/ or Pain Albuterol/Ipratropium 3 ml 03/25/21 12:17 03/25/21 16:06 Ipratropium-Albuterol 3 Ml Neb INHALATION 3 ml RT-Q4H PRN Administration Shortness Of Breath Or Wheezing Amiodarone HCl 100 mg 03/26/21 09:00 03/26/21 08:58 Amiodarone 100 Mg Tab PO 100 mg DAILY DUNCAN Administration Buspirone HCl 5 mg 03/25/21 23:30 03/26/21 08:58 Buspirone Hcl 5 Mg Tab PO 5 mg TID DUNCAN Administration Carvedilol 6.25 mg 03/25/21 23:30 03/26/21 08:58 Carvedilol 6.25 Mg Tab PO 6.25 mg BID-W/MEALS DUNCAN Administration Lisinopril 2.5 mg 03/26/21 09:00 03/26/21 08:58 Lisinopril 2.5 Mg Tab PO 2.5 mg DAILY DUNCAN Administration Miscellaneous Information 0 each 03/25/21 23:30 Warfarin Per Pharmacy MISCELLANE DIRECTED PRN PER PROTOCOL Nitroglycerin 0.4 mg 03/25/21 12:18 Nitroglycerin Sl Tabs 0.4 Mg Tab SUBLINGUAL Q5M PRN Chest Pain Spironolactone 25 mg 03/25/21 23:30 03/25/21 23:56 Spironolactone 25 Mg Tab PO 25 mg W/SUPPER DUNCAN Administration Intake and Output 03/25/21 03/26/21 03/26/21 22:59 06:59 14:59 Other: Voiding Method Toilet Toilet # Voids 1 2 03/25/21 10:25 03/25/21 10:25
[2021-03-26 11:24] LABS: INR 0.98 (0.90-1.11); Prothrombin Time 10.7 sec (9.9-11.9)
[2021-03-26 12:45] LABS: Chol/HDL Ratio 7.88
[2021-03-26] MEDS: SPIRONOLACTONE 25 MG TAB PO SCH ×2 (16:49→18:12)
--- NOTE | 2021-03-26 17:42 | ECHOF ---
Referral Reason:LV function MEASUREMENTS -------- HEIGHT: 172.7 cm WEIGHT: 90.7 kg BP: IVSd: 1.1 cm (0.6 - 1.1) LVIDd: 4.2 cm (3.9 - 5.3) LVPWd: 1.6 cm (0.6 - 1.1) IVSs: 1.4 cm LVIDs: 3.1 cm LVPWs: 0.7 cm MV E Shaheed: 0.59 m/s MV DecT: 289 ms MV A Shaheed: 0.81 m/s MV E/A Ratio: 0.73 RAP: 5.00 mmHg RVSP: 12.04 mmHg FINDINGS -------- Paced rhythm. This was a techncally difficult study with suboptimal views, , Lumason utilized for enhancement of im ages. The left ventricular size is normal. There is mild concentric left ventricular hypertrophy. Overa ll left ventricular systolic function is mildly impaired with, an EF between 45 - 50 %. The right ventricle is normal in size. The left atrial size is normal. The right atrial size is normal. The aortic valve was not well visualized. Mild mitral regurgitation is present. The tricuspid valve was not well visualized. No regurgitation noted Right ventricular systolic pr essure is normal at < 35 mmHg. The pulmonic valve was not well visualized. Echo free space represents a pericardial fat pad. CONCLUSIONS -------- 1. The left ventricular size is normal. 2. There is mild concentric left ventricular hypertrophy. 3. Overall left ventricular systolic function is mildly impaired with, an EF between 45 - 50 %. 4. The right ventricle is normal in size. 5. The left atrial size is normal. 6. The right atrial size is normal. 7. The aortic valve was not well visualized. 8. Mild mitral regurgitation is present. 9. The tricuspid valve was not well visualized. 10. No regurgitation noted 11. The pulmonic valve was not well visualized. 12. Echo free space represents a pericardial fat pad. SPECIAL EDUCATION RESOURCE TEACHER: Joan Acosta RDCS
[2021-03-26] MEDS ORDERED: WARFARIN 5 MG TAB PO ONE (18:00)
[2021-03-27 07:23] VITALS: BP 118/77; PULSE 77; RESP 18; TEMP 98
[2021-03-27] MEDS: carvediloL 6.25 MG TAB PO SCH (08:16)
[2021-03-27] MEDS: busPIRone HCl 5 MG TAB PO SCH (08:16)
[2021-03-27] MEDS: AMIODARONE 100 MG TAB PO SCH (08:17)
[2021-03-27 08:40] LABS: INR 1.2 (<1.2); Prothrombin Time 12.2 sec (9.0-12.0)
[2021-03-27] MEDS: ACETAMINOPHEN TAB 325 MG TAB PO PRN (10:35)
--- NOTE | 2021-03-27 11:49 | P.PN ---
Subjective Progress Note Date: 03/27/21 HISTORY OF PRESENT ILLNESS: This is a 55-year-old female with a past medical history significant for nonischemic cardiomyopathy with previous ICD implantation, pulmonary embolism on anticoagulation with Coumadin, ventricular fibrillation, hypertension, COPD, and former nicotine dependence. Patient used to follow in the office with Dr Reece but has not been seen since 2017 secondary to loss of insurance. We have been asked to see the patient in consultation for chest pain. Patient examined at the bedside. Patient states about 3 days ago she began having a cough. She reports sputum production that is green-yellowish in color. She began having a dull pain in the left side of her chest and the left side of her back. She currently denies chest pain or pressure. Denies shortness of breath. Denies dizziness or lightheadedness. Patient states she is a former smoker and quit smoking approximately 5 years ago. EKG reveals paced rhythm with a heart rate of 107 Chest xray minimal atelectasis or possibly effusion at the right costophrenic angle Laboratory data: WBC 9.0. Hemoglobin 16.2. Platelet count 179. Sodium 140. Potassium 3.7. BUN 14. Creatinine 0.77. Magnesium 1.8. ProBNP 29. Troponin negative 3. Current home cardiac medications include Coumadin 7.5 mg daily, Lipitor 10 mg daily, lisinopril 2.5 mg daily, carvedilol 6.25 mg twice a day, spironolactone 25 mg daily, and amiodarone 100 mg daily Most recent echocardiogram obtained in August 2020 revealed ejection fraction 40-45%. Mild mitral regurgitation. Mild tricuspid regurgitation. Patient underwent cardiac catheterization in 2011 revealing normal coronary arteries. Ejection fraction at that time was 10-15% 03/27/2021 Patient examined this morning at the bedside. Patient denies chest pain or pressure. She denies shortness of breath. AICD was interrogated and report was reviewed. Echocardiogram completed revealed ejection fraction 45-50%. PHYSICAL EXAM: VITAL SIGNS: Reviewed. GENERAL: Well-developed in no acute distress. HEENT: Head is normocephalic. Pupils are equal, round. Sclerae anicteric. Mucous membranes of the mouth are moist. Neck supple. No JVD or thyromegaly LUNGS: Respirations even and unlabored. Lungs diminished to auscultation bilaterally. HEART: Regular rate and rhythm. S1 and S2 heard. ABDOMEN: Soft. Nondistended. Nontender. EXTREMITIES: Normal range of motion. No clubbing or cyanosis. Peripheral pulses intact. No lower extremity edema NEUROLOGIC: Awake and alert. Oriented x 3. ASSESSMENT: Chest pain, atypical, troponin negative 3 Cough with sputum production x 3 days, rule out pulmonary process Nonischemic remapped with previous ICD implantation History of pulmonary embolism on anticoagulation with Coumadin History of ventricular fibrillation Hypertension COPD Former nicotine dependence PLAN: Patient is stable for discharge home today from a cardiac him point We will sign off Please reconsult if needed. Nurse practitioner note has been reviewed by physician. Signing provider agrees with the documented findings, assessment, and plan of care. Objective - Vital Signs Vital signs: Vital Signs Temp 98 F 03/27/21 07:00 Pulse 77 03/27/21 07:00 Resp 18 03/27/21 08:00 BP 118/77 03/27/21 07:00 Pulse Ox 97 03/27/21 07:00 Intake & Output 03/26/21 03/27/21 03/27/21 18:59 06:59 18:59 Intake Total 240 Balance 240 Intake: Oral 240 Other: Voiding Method Toilet Toilet # Voids 1 2 - Labs CBC & Chem 7: 03/25/21 10:25 03/25/21 10:25 Labs: Abnormal Lab Results - Last 24 Hours (Table) 03/26/21 03/27/21 Range/Units 07:43 08:05 PT 12.2 H (9.0-12.0) sec INR 1.2 H (<1.2) Triglycerides 265.0 H (0.0-149.0) mg/dL Cholesterol 268 H (0-200) mg/dL LDL Cholesterol, Calc 181.0 H (0.0-131.0) mg/dL VLDL Cholesterol, Calc 53.00 H (5.00-40.00) mg/dL HDL Cholesterol 34.0 L (40.0-60.0) mg/dL
--- NOTE | 2021-03-27 13:54 | HP ---
HISTORY AND PHYSICAL CHIEF COMPLAINT: Chest pain. HISTORY OF PRESENT ILLNESS: This is another admission for this 55-year-old white female with numerous problems including cardiomyopathy, history of pulmonary emboli, hypertension. She presented to the emergency room with chest pain, but the EKG and enzymes are normal. She was admitted for observation. She has had no hemoptysis or pleuritic pain. REVIEW OF SYSTEMS: She has had no other problems. She has had no syncope, diaphoresis, radiation of pain, etc. Past medical history, family history personal and social histories are all otherwise unremarkable, noncontributory or unchanged. PHYSICAL EXAMINATION: Blood pressure is 127/80 with a pulse is 79, respirations of 29. She is afebrile. In general, she appeared to be well developed, well nourished, in no acute distress. SKIN color is normal skin is warm, dry. LYMPH nodes are not enlarged. HEAD, ears, eyes, nose, mouth and throat were normal. NECK veins are not distended. Thyroid is not enlarged. CHEST is clear. CARDIAC exam demonstrates what sounds like sinus rhythm. ABDOMEN is soft, nontender. There are no masses or visceromegaly. EXTREMITIES: Normal. NEUROLOGICAL: Intact. IMPRESSION: She is admitted to the hospital with diagnoses of: 1. Chest pain. 2. Cough. 3. Bronchitis. 4. History of atrial fibrillation. 5. History of hyperlipidemia. 6. History of coronary artery disease. 7. History of cardiomyopathy. 8. History of pulmonary embolism. 9. History of congestive heart failure. PLAN: 1. Bedrest. 2. IV fluids. 3. Serial EKGs and enzymes. 4. D-dimer. 5. BNP. 6. Cardiology consult. MMODL / IJN: [id number] /
--- NOTE | 2021-03-27 14:32 | DS ---
DISCHARGE SUMMARY CHIEF COMPLAINT: Chest pain. HISTORY OF PRESENT ILLNESS AND PHYSICAL EXAMINATION: Details of this lady's history and physical can be found in the initial workup. LABORATORY STUDIES: While she has in the hospital, she had laboratory studies, details of which can be found in the laboratory section of her chart. COURSE IN THE HOSPITAL: After admission, she was placed on bedrest, started on intravenous fluids and had serial EKGs and enzymes. She was seen by Cardiology. Studies were essentially negative and she is doing well. It was felt she could be discharged on March 27. She will go home on usual activity, diet and medication and she will be followed up in the office and in a day or 2. FINAL DIAGNOSES: 1. Chest pain, noncardiac. 2. Atrial fibrillation. 3. Cardiomyopathy. 4. History of pulmonary emboli. 5. 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 OPERATIONS: None. CONSULTATION: Cardiology. She is improved. MMODL / IJN: [id number] /
[2021-03-27] MEDS ORDERED: WARFARIN 10 MG TAB PO ONE (18:00)
--- NOTE | 2021-03-27 19:52 | PN ---
PROGRESS NOTE DATE OF SERVICE: 03/26/2021 CHIEF COMPLAINT: Chest pain. HISTORY OF PRESENT ILLNESS: This lady is doing fairly well. She is not having nearly the discomfort that she was. It is in the left anterior chest and it almost sounds pleuritic. She did have associated cough, shortness of breath and chills. PHYSICAL EXAMINATION: Her color is good. Vital signs are normal. Chest demonstrates no rales, rhonchi or rubs. Cardiac exam is unremarkable. Abdomen is soft, nontender. IMPRESSION: 1. Chest pain, probably noncardiac. 2. Rule out pleurisy or pulmonary embolism. 3. History of cardiomyopathy, coronary artery disease and congestive heart failure. PLAN: Continue on her usual medications and await further recommendations from Cardiology. MMODL / IJN: [id number] /
== END 2021-03-27 11:15 | disposition home or self-care (01) ==
LOC: EC 09:54 → 1SOBS 12:17 → 6NMEDSUR 16:46
PROVIDERS: ADMIT Family Medicine; ATTEND Family Medicine
DX: R07.89 Other chest pain (principal); I48.91 Unspecified atrial fibrillation; I42.8 Other cardiomyopathies; Z86.711 Personal history of pulmonary embolism; E78.5 Hyperlipidemia, unspecified; F41.9 Anxiety disorder, unspecified; I11.0 Hypertensive heart disease with heart failure; I25.10 Atherosclerotic heart disease of native coronary artery without angina pectoris; I25.2 Old myocardial infarction; I50.9 Heart failure, unspecified; J44.1 Chronic obstructive pulmonary disease with (acute) exacerbation; Z20.822 Contact with and (suspected) exposure to COVID-19; Z79.01 Long term (current) use of anticoagulants; Z79.899 Other long term (current) drug therapy; Z82.49 Family history of ischemic heart disease and other diseases of the circulatory system; Z83.3 Family history of diabetes mellitus; Z87.891 Personal history of nicotine dependence; Z95.810 Presence of automatic (implantable) cardiac defibrillator
CPT/HCPCS: 96376; 96361; 96374; 96375; 99285; 36415; 94640 ×2; 93005; 85379; 83880; 80061; 80053; 83735; 84484; 85025; 85610 ×3; 85730; 87635; 71046; G0378 ×3; C8929; J2060; J2930; Q9950; 93306

== ENCOUNTER 2021-06-01 19:01 | Emergency (ER) | payer MEDICARE ==
[2021-06-01 20:24] VITALS: TEMP 98.4
[2021-06-01 21:09] VITALS: RESP 20
[2021-06-01] MEDS ORDERED: ONDANSETRON 4 MG/2 ML VIAL IVP STA (21:29)
[2021-06-01] MEDS ORDERED: SODIUM CHLORIDE 0.9% 1,000 ML IV STA (21:29)
[2021-06-01] MEDS ORDERED: CASIRIVIMAB/IMDEVIMAB (EUA) 1,200 MG in SODIUM CHLORIDE 0.9% 100 ML IVPB ONE (22:00)
[2021-06-01] MEDS ORDERED: SODIUM CHLORIDE 0.9% 50 ML IVPB ONE (22:00)
--- NOTE | 2021-06-01 22:08 | ED ---
General Adult HPI - General Chief complaint: Fever Stated complaint: Cough/fever/light headed Time Seen by Provider: 06/01/21 21:01 Source: patient, RN notes reviewed Mode of arrival: ambulatory Limitations: no limitations - History of Present Illness Initial comments: Patient is a 55-year-old female with history of COPD, hypertension, presenting to the emergency Department with complaints of headache, fever, chills and bodyaches over the past 4 days. She states she recently lost her sense of taste and smell. She's been having some intermittent nausea. She did take some Tylenol today. She denies any chest pain or shortness of breath, no abdominal pain. Patient has no further complaints at this time. Upon arrival to the ER, her vitals are within normal limits. - Related Data Home Medications Medication Instructions Recorded Confirmed Spironolactone [Aldactone] 25 mg PO W/SUPPER 08/15/20 03/25/21 Warfarin [Coumadin] 7.5 mg PO W/SUPPER 03/25/21 03/25/21 Previous Rx's Medication Instructions Recorded Amiodarone [Cordarone] 100 mg PO DAILY #90 tab 04/08/20 carvediloL [Coreg] 6.25 mg PO BID-W/MEALS #180 tab 04/08/20 lisinopriL [Zestril] 2.5 mg PO DAILY #90 tab 04/08/20 Atorvastatin [Lipitor] 80 mg PO HS #30 tab 03/27/21 Albuterol Inhaler [Ventolin Hfa 1 puff INHALATION RT-QID PRN #8 gm 06/01/21 Inhaler] Dexamethasone [Decadron] 6 mg PO DAILY 7 Days #7 tablet 06/01/21 Allergies Allergy/AdvReac Type Severity Reaction Status Date / Time hydromorphone [From Dilaudid] AdvReac Vomiting Verified 06/01/21 20:24 Review of Systems ROS Statement: Those systems with pertinent positive or pertinent negative responses have been documented in the HPI. ROS Other: All systems not noted in ROS Statement are negative. Past Medical History Past Medical History: COPD, Hyperlipidemia, Hypertension, Myocardial Infarction ([place]), Pneumonia, Pulmonary Embolus ([place]) Additional Past Medical History / Comment(s): cardiomyopathy, PE ( 5yrs ago), brain aneursym Last Myocardial Infarction Date:: 5 yrs ago History of Any Multi-Drug Resistant Organisms: None Reported Past Surgical History: AICD, Cholecystectomy, Heart Catheterization Additional Past Surgical History / Comment(s): AICD defibrillator placed 5 years ago Past Anesthesia/Blood Transfusion Reactions: No Reported Reaction Type of Cardiac Device: AICD Device Placement Date:: 2015 Past Psychological History: Anxiety, Depression Smoking Status: Former smoker Past Alcohol Use History: None Reported Past Drug Use History: None Reported - Past Family History Mother Family Medical History: Diabetes Mellitus, Hypertension Father Family Medical History: No Reported History General Exam - General Exam Comments Initial Comments: GENERAL: Patient is well-developed and well-nourished. Patient is nontoxic and in no acute distress. HEAD: Atraumatic, normocephalic. EYES: Pupils equal round and reactive to light, extraocular movements intact, sclera anicteric, conjunctiva are normal. Eyelids were unremarkable. ENT: Moist mucous membranes. NECK: Normal range of motion, supple without lymphadenopathy or JVD. LUNGS: Unlabored respirations. Mild scattered wheezes in the upper baker. HEART: Regular rate and rhythm without murmurs, rubs or gallops. ABDOMEN: Soft, nontender, normoactive bowel sounds. No guarding, no rebound. No masses appreciated. MUSCULOSKELETAL: Normal extremities with adequate strength and normal range of motion, no pitting or edema. No clubbing or cyanosis. NEUROLOGICAL: Patient is alert and oriented x 3. SKIN: Warm, Dry, normal turgor, no rashes or lesions noted. Limitations: no limitations Course Vital Signs 06/01/21 06/01/21 06/01/21 20:19 21:07 22:16 Temperature 98.4 F Pulse Rate 105 H 98 Respiratory 18 20 20 Rate Blood Pressure 105/70 110/61 O2 Sat by Pulse 93 L 92 L Oximetry Medical Decision Making - Medical Decision Making Patient is a 55-year-old female here with Ilotycin symptoms of the past 4-5 days. She did test positive for Covid today. Her vitals are within normal limits, no chest pain or shortness of breath today. She did agree to monoclonal antibodies, she did receive these without adverse side effects. She does have history of COPD, some mild wheezes on exam. I will start her on steroids and give her an inhaler. Patient is stable for discharge. Return parameters were discussed with her and she verbalized understanding. - Lab Data Lab Results 06/01/21 Range/Units 20:26 Coronavirus (PCR) Detected A (Not Detectd) Disposition Clinical Impression: COVID-19 Disposition: HOME SELF-CARE Condition: Stable Instructions (If sedation given, give patient instructions): Coronavirus Disease 2019 (COVID-19) Additional Instructions: Please return to the Emergency Department if symptoms worsen or any other concerns. Take steroids and use inhaler as prescribed. Please follow up with your primary care. Prescriptions: Dexamethasone [Decadron] 6 mg PO DAILY 7 Days #7 tablet Albuterol Inhaler [Ventolin Hfa Inhaler] 1 puff INHALATION RT-QID PRN #8 gm PRN Reason: Shortness Of Breath Is patient prescribed a controlled substance at d/c from ED?: No Referrals: Daniel Mosqueda MD [Primary Care Provider] - 1-2 days Time of Disposition: 23:15
[2021-06-01 22:18] VITALS: BP 110/61; PULSE 98
== END 2021-06-02 | disposition home or self-care (01) ==
LOC: EC 19:01
DX: U07.1 COVID-19 (principal); J44.9 Chronic obstructive pulmonary disease, unspecified; I10 Essential (primary) hypertension; E78.5 Hyperlipidemia, unspecified; I25.2 Old myocardial infarction; I42.9 Cardiomyopathy, unspecified; F41.9 Anxiety disorder, unspecified; F32.9 Major depressive disorder, single episode, unspecified; Z79.01 Long term (current) use of anticoagulants; Z88.5 Allergy status to narcotic agent; Z86.711 Personal history of pulmonary embolism; Z90.49 Acquired absence of other specified parts of digestive tract; Z87.891 Personal history of nicotine dependence; Z79.899 Other long term (current) drug therapy; Z95.810 Presence of automatic (implantable) cardiac defibrillator
CPT/HCPCS: 99284 ×2; 96361; 96374; 87635; M0243; J2405; Q0244; 96375

== ENCOUNTER 2021-06-15 09:14 | Emergency (ER) | payer MEDICARE ==
[2021-06-15 09:37] VITALS: BP 115/78; PULSE 98; RESP 20; TEMP 98
--- NOTE | 2021-06-15 09:58 | XR ---
EXAMINATION TYPE: XR chest 2V DATE OF EXAM: 06/15/2021 COMPARISON: Chest x-ray March 25, 2021 HISTORY: Rib pain. Shortness of breath. COVID. TECHNIQUE: Frontal and lateral views of the chest are obtained. FINDINGS: There are chronic parenchymal changes bilaterally without suspicious new focal air space o pacity, pleural effusion, or pneumothorax seen. The cardiac silhouette size is stable and upper limi ts of normal with multi lead pacemaker. Degenerative change bilateral glenohumeral joints. IMPRESSION: Chronic parenchymal changes without acute pulmonary process.
[2021-06-15] MEDS ORDERED: MORPHINE SULFATE 4 MG/ML SYRINGE IVP STA (10:36)
[2021-06-15] MEDS ORDERED: ONDANSETRON 4 MG/2 ML VIAL IVP STA (10:37)
--- NOTE | 2021-06-15 10:47 | ED ---
General Adult HPI - General Chief complaint: Shortness of Breath Stated complaint: Covid+, SOB Time Seen by Provider: 06/15/21 10:04 Source: patient, RN notes reviewed Mode of arrival: ambulatory Limitations: no limitations - History of Present Illness Initial comments: 55-year-old female with a past medical history of COPD, hyperlipidemia, hypertension, [place] presents to the emergency room for a chief complaint of rib pain. Patient states she tested positive for COVID-19 2 weeks ago and still does not feel better. States whenever she coughs she has pain in her ribs on both sides. States she is still short of breath. Denies any anterior chest pain. Patient states the pain worsens with coughing and with movement.Patient has no other complaints at this time including chest pain, abdominal pain, nausea or vomiting, headache, or visual changes. - Related Data Home Medications Medication Instructions Recorded Confirmed Spironolactone [Aldactone] 25 mg PO W/SUPPER 08/15/20 03/25/21 Warfarin [Coumadin] 7.5 mg PO W/SUPPER 03/25/21 03/25/21 Previous Rx's Medication Instructions Recorded Amiodarone [Cordarone] 100 mg PO DAILY #90 tab 04/08/20 carvediloL [Coreg] 6.25 mg PO BID-W/MEALS #180 tab 04/08/20 lisinopriL [Zestril] 2.5 mg PO DAILY #90 tab 04/08/20 Atorvastatin [Lipitor] 80 mg PO HS #30 tab 03/27/21 Albuterol Inhaler [Ventolin Hfa 1 puff INHALATION RT-QID PRN #8 gm 06/01/21 Inhaler] Dexamethasone [Decadron] 6 mg PO DAILY 7 Days #7 tablet 06/01/21 Cyclobenzaprine [Flexeril] 10 mg PO TID #14 tab 06/15/21 Allergies Allergy/AdvReac Type Severity Reaction Status Date / Time hydromorphone [From Dilaudid] AdvReac Vomiting Verified 06/15/21 09:37 Review of Systems ROS Statement: Those systems with pertinent positive or pertinent negative responses have been documented in the HPI. ROS Other: All systems not noted in ROS Statement are negative. Past Medical History Past Medical History: COPD, Hyperlipidemia, Hypertension, Myocardial Infarction ([place]), Pneumonia, Pulmonary Embolus ([place]) Additional Past Medical History / Comment(s): cardiomyopathy, PE ( 5yrs ago), brain aneursym Last Myocardial Infarction Date:: 5 yrs ago History of Any Multi-Drug Resistant Organisms: None Reported Past Surgical History: AICD, Cholecystectomy, Heart Catheterization Additional Past Surgical History / Comment(s): AICD defibrillator placed 5 years ago Past Anesthesia/Blood Transfusion Reactions: No Reported Reaction Type of Cardiac Device: AICD Device Placement Date:: 2015 Past Psychological History: Anxiety, Depression Smoking Status: Former smoker Past Alcohol Use History: None Reported Past Drug Use History: None Reported - Past Family History Mother Family Medical History: Diabetes Mellitus, Hypertension Father Family Medical History: No Reported History General Exam Limitations: no limitations General appearance: alert, in no apparent distress Head exam: Present: atraumatic Eye exam: Present: normal appearance, PERRL, EOMI. Absent: scleral icterus, conjunctival injection ENT exam: Present: normal exam, mucous membranes moist Neck exam: Present: normal inspection, full ROM. Absent: tenderness Respiratory exam: Present: normal lung sounds bilaterally. Absent: respiratory distress, wheezes Cardiovascular Exam: Present: regular rate, normal rhythm, normal heart sounds GI/Abdominal exam: Present: soft, normal bowel sounds. Absent: distended, tenderness Neurological exam: Present: alert Course Vital Signs 06/15/21 06/15/21 09:34 10:08 Temperature 98 F Pulse Rate 98 Respiratory 20 20 Rate Blood Pressure 115/78 O2 Sat by Pulse 96 Oximetry Medical Decision Making - Medical Decision Making Vitals are stable. Patient is well-appearing. HPI and physical exam as documented. Pain is reproducible to palpation on the bilateral ribs. Chest x- ray shows no acute process. I did recommend doing blood work and fluids, d- dimer. However patient is refusing. Patient states she knows it is just achiness and just wants to feel better. She states she does not want any blood work done and she knows it is not her heart or her lungs. Patient is agreeable to returning for worsening symptoms to have a workup performed. She will follow-up with her doctor otherwise. Disposition Clinical Impression: Rib pain, COVID-19 Disposition: HOME SELF-CARE Condition: Good Instructions (If sedation given, give patient instructions): Coronavirus Disease 2019 (COVID-19) Additional Instructions: Please continue to take Tylenol for pain. Try muscle relaxer. Follow-up closely with her primary care doctor. Return to the emergency room for any worsening symptoms. Prescriptions: Cyclobenzaprine [Flexeril] 10 mg PO TID #14 tab Is patient prescribed a controlled substance at d/c from ED?: No Referrals: Daniel Mosqueda MD [Primary Care Provider] - 1-2 days Time of Disposition: 10:43
== END 2021-06-15 11:13 | disposition home or self-care (01) ==
LOC: EC 09:14
DX: R07.81 Pleurodynia (principal); U07.1 COVID-19; J44.9 Chronic obstructive pulmonary disease, unspecified; E78.5 Hyperlipidemia, unspecified; I10 Essential (primary) hypertension; I25.2 Old myocardial infarction; F41.9 Anxiety disorder, unspecified; F32.A Depression, unspecified; Z87.891 Personal history of nicotine dependence; Z79.01 Long term (current) use of anticoagulants; Z79.51 Long term (current) use of inhaled steroids; Z79.899 Other long term (current) drug therapy
CPT/HCPCS: 93005; 71046; 99285; 96374; 96375; J2270; J2405

== ENCOUNTER 2021-06-20 16:44 | Emergency (ER) | payer MEDICARE ==
[2021-06-20 17:26] VITALS: RESP 18
[2021-06-20] MEDS ORDERED: MORPHINE SULFATE 4 MG/ML SYRINGE IV STA (20:57)
--- NOTE | 2021-06-20 21:03 | ED ---
General Adult HPI - General Chief complaint: Chest Pain Stated complaint: Sharp Pain in ribs Time Seen by Provider: 06/20/21 20:31 Source: patient, RN notes reviewed Mode of arrival: ambulatory Limitations: no limitations - History of Present Illness Initial comments: Patient is a pleasant 55-year-old female presenting to the emergency Department with complaints of left-sided rib pain. Onset of symptoms was around 6 days ago. Discomfort is moderate. Discomfort increases with deep breaths and movement. No history of similar symptoms previously. Patient does have history of pulmonary embolism without similar symptoms and is currently on Coumadin. No anterior chest pain. No dyspnea. Patient did have COVID-19 infection last month. No leg pain or leg swelling. No fever. - Related Data Home Medications Medication Instructions Recorded Confirmed Spironolactone [Aldactone] 25 mg PO HS 08/15/20 06/20/21 ALPRAZolam [Xanax] 0.5 mg PO TID PRN 06/20/21 06/20/21 Amiodarone [Cordarone] 200 mg PO DAILY 06/20/21 06/20/21 Atorvastatin [Lipitor] 10 mg PO HS 06/20/21 06/20/21 Warfarin Sodium [Jantoven] 7.5 mg PO W/SUPPER 06/20/21 06/20/21 Previous Rx's Medication Instructions Recorded carvediloL [Coreg] 6.25 mg PO BID-W/MEALS #180 tab 04/08/20 lisinopriL [Zestril] 2.5 mg PO DAILY #90 tab 04/08/20 Allergies Allergy/AdvReac Type Severity Reaction Status Date / Time hydromorphone [From Dilaudid] AdvReac Vomiting Verified 06/20/21 22:16 Review of Systems ROS Statement: Those systems with pertinent positive or pertinent negative responses have been documented in the HPI. ROS Other: All systems not noted in ROS Statement are negative. Constitutional: Denies: fever Eyes: Denies: eye pain ENT: Denies: ear pain Respiratory: Reports: as per HPI Cardiovascular: Reports: as per HPI Endocrine: Denies: fatigue Gastrointestinal: Denies: abdominal pain Genitourinary: Denies: dysuria Musculoskeletal: Denies: back pain Skin: Denies: rash Neurological: Denies: weakness Past Medical History Past Medical History: COPD, Hyperlipidemia, Hypertension, Myocardial Infarction ([place]), Pneumonia, Pulmonary Embolus ([place]) Additional Past Medical History / Comment(s): cardiomyopathy, PE ( 5yrs ago), brain aneursym Last Myocardial Infarction Date:: 5 yrs ago History of Any Multi-Drug Resistant Organisms: None Reported Past Surgical History: AICD, Cholecystectomy, Heart Catheterization Additional Past Surgical History / Comment(s): AICD defibrillator placed 5 years ago Past Anesthesia/Blood Transfusion Reactions: No Reported Reaction Type of Cardiac Device: AICD Device Placement Date:: 2015 Past Psychological History: Anxiety, Depression Smoking Status: Former smoker Past Alcohol Use History: None Reported Past Drug Use History: None Reported - Past Family History Mother Family Medical History: Diabetes Mellitus, Hypertension Father Family Medical History: No Reported History General Exam Limitations: no limitations General appearance: alert, in no apparent distress Head exam: Present: normocephalic Eye exam: Present: normal appearance Neck exam: Present: normal inspection Respiratory exam: Present: normal lung sounds bilaterally, chest wall tenderness (Left lateral chest wall, mid thorax, mid axillary line) Cardiovascular Exam: Present: regular rate, normal rhythm Expanded Peripheral pulses: 2+: Radial (R), Radial (L), Posterior Tibialis (R), Posterior Tibialis (L) GI/Abdominal exam: Present: soft. Absent: tenderness Extremities exam: Present: normal inspection. Absent: pedal edema, calf tenderness Neurological exam: Present: alert Psychiatric exam: Present: normal affect, normal mood Skin exam: Present: normal color Course Vital Signs 06/20/21 17:20 Temperature 98.4 F Pulse Rate 93 Respiratory 18 Rate Blood Pressure 113/69 O2 Sat by Pulse 95 Oximetry EKG Findings - EKG Comments: EKG Findings:: Paced rhythm with rate of 101. QRS 168. QT 428. QTC 554. Superior axis. Wide QRS complex. Nonspecific ST-T. Medical Decision Making - Medical Decision Making Patient reevaluated and resting comfortably in bed. Patient updated on results and plan. Patient does request a steroid injection for her inflammation. - Lab Data Result diagrams: 06/20/21 21:23 06/20/21 21:23 Lab Results 06/20/21 06/20/21 06/20/21 Range/Units 21:23 21:23 21:23 WBC 11.2 H (3.8-10.6) k/uL RBC 4.87 (3.80-5.40) m/uL Hgb 14.0 (11.4-16.0) gm/dL Hct 40.9 (34.0-46.0) % MCV 84.2 (80.0-100.0) fL MCH 28.8 (25.0-35.0) pg MCHC 34.3 (31.0-37.0) g/dL RDW 16.1 H (11.5-15.5) % Plt Count 180 (150-450) k/uL MPV 9.2 Neutrophils % 69 % Lymphocytes % 20 % Monocytes % 7 % Eosinophils % 2 % Basophils % 0 % Neutrophils # 7.7 (1.3-7.7) k/uL Lymphocytes # 2.2 (1.0-4.8) k/uL Monocytes # 0.8 (0-1.0) k/uL Eosinophils # 0.2 (0-0.7) k/uL Basophils # 0.0 (0-0.2) k/uL Hyperchromasia Slight Poikilocytosis Slight Anisocytosis Slight PT 34.1 H (9.0-12.0) sec INR 3.5 H (<1.2) APTT 40.5 H (22.0-30.0) sec Sodium 136 L (137-145) mmol/L Potassium 4.1 (3.5-5.1) mmol/L Chloride 103 (98-107) mmol/L Carbon Dioxide 24 (22-30) mmol/L Anion Gap 9 mmol/L BUN 9 (7-17) mg/dL Creatinine 0.68 (0.52-1.04) mg/dL Est GFR (CKD-EPI)AfAm >90 (>60 ml/min/1.73 sqM) Est GFR (CKD-EPI)NonAf >90 (>60 ml/min/1.73 sqM) Glucose 105 H (74-99) mg/dL Calcium 9.4 (8.4-10.2) mg/dL Magnesium 1.9 (1.6-2.3) mg/dL Total Bilirubin 0.6 (0.2-1.3) mg/dL AST 18 (14-36) U/L ALT 18 (4-34) U/L Alkaline Phosphatase 96 (38-126) U/L Troponin I (0.000-0.034) ng/mL Total Protein 7.2 (6.3-8.2) g/dL Albumin 4.3 (3.5-5.0) g/dL 06/20/21 Range/Units 21:23 WBC (3.8-10.6) k/uL RBC (3.80-5.40) m/uL Hgb (11.4-16.0) gm/dL Hct (34.0-46.0) % MCV (80.0-100.0) fL MCH (25.0-35.0) pg MCHC (31.0-37.0) g/dL RDW (11.5-15.5) % Plt Count (150-450) k/uL MPV Neutrophils % % Lymphocytes % % Monocytes % % Eosinophils % % Basophils % % Neutrophils # (1.3-7.7) k/uL Lymphocytes # (1.0-4.8) k/uL Monocytes # (0-1.0) k/uL Eosinophils # (0-0.7) k/uL Basophils # (0-0.2) k/uL Hyperchromasia Poikilocytosis Anisocytosis PT (9.0-12.0) sec INR (<1.2) APTT (22.0-30.0) sec Sodium (137-145) mmol/L Potassium (3.5-5.1) mmol/L Chloride (98-107) mmol/L Carbon Dioxide (22-30) mmol/L Anion Gap mmol/L BUN (7-17) mg/dL Creatinine (0.52-1.04) mg/dL Est GFR (CKD-EPI)AfAm (>60 ml/min/1.73 sqM) Est GFR (CKD-EPI)NonAf (>60 ml/min/1.73 sqM) Glucose (74-99) mg/dL Calcium (8.4-10.2) mg/dL Magnesium (1.6-2.3) mg/dL Total Bilirubin (0.2-1.3) mg/dL AST (14-36) U/L ALT (4-34) U/L Alkaline Phosphatase (38-126) U/L Troponin I <0.012 (0.000-0.034) ng/mL Total Protein (6.3-8.2) g/dL Albumin (3.5-5.0) g/dL - Radiology Data Radiology results: report reviewed (Computed tomography scan negative for pulmonary embolism.) Disposition Clinical Impression: Pleuritic pain Disposition: HOME SELF-CARE Condition: Stable Instructions (If sedation given, give patient instructions): Pleurisy (ED) Additional Instructions: please do follow-up to primary care physician in the next day or 2 for recheck. Return for difficulty breathing, fever, increased pain or chest pain, worsening or changing symptoms or other concerns. Is patient prescribed a controlled substance at d/c from ED?: No Referrals: Daniel Mosqueda MD [Primary Care Provider] - 1-2 days Time of Disposition: 22:50
[2021-06-20 21:34] LABS: Anisocytosis Slight; Basophils % (A) 0 %; Eosinophils # (A) 0.2 k/uL (0-0.7); Eosinophils % (A) 2 %; HCT 40.9 % (34.0-46.0); Hyperchromasia Slight; Lymphocytes # (A) 2.2 k/uL (1.0-4.8); Lymphocytes % (A) 20 %; MCH 28.8 pg (25.0-35.0); MCHC 34.3 g/dL (31.0-37.0); MCV 84.2 fL (80.0-100.0); Mean Platelet Volume 9.2; Monocytes # (A) 0.8 k/uL (0-1.0); Monocytes % (A) 7 %; Neutrophils # (A) 7.7 k/uL (1.3-7.7); Neutrophils % (A) 69 %; Platelet Count 180 k/uL (150-450); Poikilocytosis Slight; RBC 4.87 m/uL (3.80-5.40); RDW 16.1 % (11.5-15.5); WBC 11.2 k/uL (3.8-10.6)
[2021-06-20 21:51] LABS: INR 3.5 (<1.2); Partial Thromboplastin Time 40.5 sec (22.0-30.0); Prothrombin Time 34.1 sec (9.0-12.0)
[2021-06-20 21:58] LABS: ALT 18 U/L (4-34); AST 18 U/L (14-36); African American GFR (CKD) >90 (>60 ml/min/1.73 sqM); Albumin 4.3 g/dL (3.5-5.0); Alkaline Phosphatase 96 U/L (38-126); Anion Gap 9 mmol/L; Blood Urea Nitrogen 9 mg/dL (7-17); Calcium 9.4 mg/dL (8.4-10.2); Carbon Dioxide 24 mmol/L (22-30); Chloride 103 mmol/L (98-107); Glucose 105 mg/dL (74-99); Magnesium 1.9 mg/dL (1.6-2.3); Non-African American GFR(CKD) >90 (>60 ml/min/1.73 sqM); Potassium 4.1 mmol/L (3.5-5.1); Sodium 136 mmol/L (137-145); Total Bilirubin 0.6 mg/dL (0.2-1.3); Total Protein 7.2 g/dL (6.3-8.2)
--- NOTE | 2021-06-20 22:37 | CT ---
EXAMINATION TYPE: CT angio chest DATE OF EXAM: 06/20/2021 COMPARISON: 08/28/2020 HISTORY: R/O PE CT DLP: 475 mGycm Automated exposure control for dose reduction was used. CONTRAST: Performed with IV Contrast, patient injected with 100 mL of Isovue 370. There are 3-D post processed images. There is some pulmonary emphysema. There is no pleural effusion. There is no pericardial effusion. Th ere is no evidence of a pneumothorax. There is no mediastinal adenopathy. Thoracic aorta is intact. T here is no aneurysm or dissection. Heart size is fairly normal. There is no pericardial effusion. There is normal contrast opacification of the pulmonary arteries. There are no filling defects. IMPRESSION: Negative exam. No evidence of pulmonary embolism. Mild pulmonary emphysema. Mild pulmonary fibrotic c hanges. There is improvement in the atelectasis at the lung bases compared to old exam.
[2021-06-20] MEDS ORDERED: DEXAMETHASONE SOD PHOSPHATE 4 MG/ML 1 ML VIAL IVP STA (22:48)
[2021-06-20 23:46] VITALS: BP 136/87; PULSE 67; TEMP 98.7
== END 2021-06-20 23:41 | disposition home or self-care (01) ==
LOC: EC 16:44
DX: R07.81 Pleurodynia (principal); E78.5 Hyperlipidemia, unspecified; I10 Essential (primary) hypertension; I25.2 Old myocardial infarction; J44.9 Chronic obstructive pulmonary disease, unspecified; F41.9 Anxiety disorder, unspecified; F32.A Depression, unspecified; Z79.01 Long term (current) use of anticoagulants; Z88.5 Allergy status to narcotic agent; Z86.711 Personal history of pulmonary embolism; Z90.49 Acquired absence of other specified parts of digestive tract; Z87.891 Personal history of nicotine dependence
CPT/HCPCS: 99285; 96374; 96375; 36415; 93005; 80053; 83735; 84484; 85025; 85610; 85730; 71275; J2270; J1100; Q9967

== ENCOUNTER 2021-07-03 12:43 | Observation (INO) | payer MEDICARE ==
[2021-07-03 12:55] VITALS: RESP 18; TEMP 98.2
[2021-07-03] MEDS ORDERED: MORPHINE SULFATE 4 MG/ML SYRINGE IVP STA (13:08)
[2021-07-03] MEDS ORDERED: PANTOPRAZOLE 40 MG/10 ML VIAL IVP STA (13:08)
[2021-07-03] MEDS ORDERED: ONDANSETRON 4 MG/2 ML VIAL IVP STA (13:08)
--- NOTE | 2021-07-03 13:21 | ED ---
General Adult HPI - General Chief complaint: Chest Pain Stated complaint: Chest pain Time Seen by Provider: 07/03/21 12:56 Source: patient, RN notes reviewed, old records reviewed Mode of arrival: ambulatory Limitations: no limitations - History of Present Illness Initial comments: 55-year-old female presenting with lower chest pain which she describes as heartburn. This has been present throughout the day today. He does not travel. She has a history of ischemic cardiomyopathy status post pacemaker defibrillator. She denies fever. Denies cough. Denies dyspnea. Denies abdominal pain. She has had previous cholecystectomy. - Related Data Home Medications Medication Instructions Recorded Confirmed Spironolactone [Aldactone] 25 mg PO HS 08/15/20 06/20/21 ALPRAZolam [Xanax] 0.5 mg PO TID PRN 06/20/21 06/20/21 Amiodarone [Cordarone] 200 mg PO DAILY 06/20/21 06/20/21 Atorvastatin [Lipitor] 10 mg PO HS 06/20/21 06/20/21 Warfarin Sodium [Jantoven] 7.5 mg PO W/SUPPER 06/20/21 06/20/21 Previous Rx's Medication Instructions Recorded carvediloL [Coreg] 6.25 mg PO BID-W/MEALS #180 tab 04/08/20 lisinopriL [Zestril] 2.5 mg PO DAILY #90 tab 04/08/20 Allergies Allergy/AdvReac Type Severity Reaction Status Date / Time hydromorphone [From Dilaudid] AdvReac Vomiting Verified 07/03/21 12:54 Review of Systems ROS Statement: Those systems with pertinent positive or pertinent negative responses have been documented in the HPI. ROS Other: All systems not noted in ROS Statement are negative. Past Medical History Past Medical History: COPD, Hyperlipidemia, Hypertension, Myocardial Infarction ([place]), Pneumonia, Pulmonary Embolus ([place]) Additional Past Medical History / Comment(s): cardiomyopathy, PE ( 5yrs ago), brain aneursym Last Myocardial Infarction Date:: 5 yrs ago History of Any Multi-Drug Resistant Organisms: None Reported Past Surgical History: AICD, Cholecystectomy, Heart Catheterization Additional Past Surgical History / Comment(s): AICD defibrillator placed 5 years ago Past Anesthesia/Blood Transfusion Reactions: No Reported Reaction Type of Cardiac Device: AICD Device Placement Date:: 2016 Past Psychological History: Anxiety, Depression Smoking Status: Former smoker Past Alcohol Use History: None Reported Past Drug Use History: None Reported - Past Family History Mother Family Medical History: Diabetes Mellitus, Hypertension Father Family Medical History: No Reported History General Exam Limitations: no limitations General appearance: alert, in no apparent distress Head exam: Present: atraumatic, normocephalic Eye exam: Present: normal appearance, PERRL ENT exam: Present: normal exam Neck exam: Present: normal inspection. Absent: tenderness Respiratory exam: Present: normal lung sounds bilaterally. Absent: respiratory distress, wheezes Cardiovascular Exam: Present: regular rate, normal rhythm GI/Abdominal exam: Present: soft. Absent: distended, tenderness, guarding Extremities exam: Present: normal inspection, normal capillary refill. Absent: pedal edema Neurological exam: Present: alert, oriented X3, CN II-XII intact. Absent: motor sensory deficit Psychiatric exam: Present: normal affect, normal mood Skin exam: Present: warm, dry, intact. Absent: cyanosis, diaphoretic Course Vital Signs 07/03/21 07/03/21 07/03/21 12:51 13:20 14:06 Temperature 98.2 F Pulse Rate 103 H 100 98 Respiratory 18 18 18 Rate Blood Pressure 122/85 121/75 118/87 O2 Sat by Pulse 95 90 L 94 L Oximetry EKG Findings - EKG Comments: EKG Findings:: EKG: Ventricular paced rhythm, biventricular pacemaker, rate of 98, QRS duration 164, QTC 458 Medical Decision Making - Lab Data Result diagrams: 07/03/21 13:12 07/03/21 13:12 Lab Results 07/03/21 07/03/21 07/03/21 Range/Units 13:12 13:12 13:12 WBC 10.0 (3.8-10.6) k/uL RBC 5.00 (3.80-5.40) m/uL Hgb 14.9 (11.4-16.0) gm/dL Hct 43.1 (34.0-46.0) % MCV 86.1 (80.0-100.0) fL MCH 29.8 (25.0-35.0) pg MCHC 34.7 (31.0-37.0) g/dL RDW 16.2 H (11.5-15.5) % Plt Count 244 (150-450) k/uL MPV 9.5 Neutrophils % 65 % Lymphocytes % 25 % Monocytes % 6 % Eosinophils % 3 % Basophils % 0 % Neutrophils # 6.4 (1.3-7.7) k/uL Lymphocytes # 2.5 (1.0-4.8) k/uL Monocytes # 0.6 (0-1.0) k/uL Eosinophils # 0.3 (0-0.7) k/uL Basophils # 0.0 (0-0.2) k/uL Hyperchromasia Slight Poikilocytosis Slight Anisocytosis Slight PT 47.9 H (9.0-12.0) sec INR 5.0 H (<1.2) APTT 44.2 H (22.0-30.0) sec Sodium 138 (137-145) mmol/L Potassium 4.6 (3.5-5.1) mmol/L Chloride 102 (98-107) mmol/L Carbon Dioxide 23 (22-30) mmol/L Anion Gap 13 mmol/L BUN 11 (7-17) mg/dL Creatinine 0.88 (0.52-1.04) mg/dL Est GFR (CKD-EPI)AfAm 86 (>60 ml/min/1.73 sqM) Est GFR (CKD-EPI)NonAf 74 (>60 ml/min/1.73 sqM) Glucose 100 H (74-99) mg/dL Calcium 9.6 (8.4-10.2) mg/dL Magnesium 2.0 (1.6-2.3) mg/dL Total Bilirubin 0.6 (0.2-1.3) mg/dL AST 22 (14-36) U/L ALT 20 (4-34) U/L Alkaline Phosphatase 107 (38-126) U/L Troponin I (0.000-0.034) ng/mL NT-Pro-B Natriuret Pep pg/mL Total Protein 7.4 (6.3-8.2) g/dL Albumin 4.5 (3.5-5.0) g/dL Lipase 33 (23-300) U/L 07/03/21 07/03/21 Range/Units 13:12 13:12 WBC (3.8-10.6) k/uL RBC (3.80-5.40) m/uL Hgb (11.4-16.0) gm/dL Hct (34.0-46.0) % MCV (80.0-100.0) fL MCH (25.0-35.0) pg MCHC (31.0-37.0) g/dL RDW (11.5-15.5) % Plt Count (150-450) k/uL MPV Neutrophils % % Lymphocytes % % Monocytes % % Eosinophils % % Basophils % % Neutrophils # (1.3-7.7) k/uL Lymphocytes # (1.0-4.8) k/uL Monocytes # (0-1.0) k/uL Eosinophils # (0-0.7) k/uL Basophils # (0-0.2) k/uL Hyperchromasia Poikilocytosis Anisocytosis PT (9.0-12.0) sec INR (<1.2) APTT (22.0-30.0) sec Sodium (137-145) mmol/L Potassium (3.5-5.1) mmol/L Chloride (98-107) mmol/L Carbon Dioxide (22-30) mmol/L Anion Gap mmol/L BUN (7-17) mg/dL Creatinine (0.52-1.04) mg/dL Est GFR (CKD-EPI)AfAm (>60 ml/min/1.73 sqM) Est GFR (CKD-EPI)NonAf (>60 ml/min/1.73 sqM) Glucose (74-99) mg/dL Calcium (8.4-10.2) mg/dL Magnesium (1.6-2.3) mg/dL Total Bilirubin (0.2-1.3) mg/dL AST (14-36) U/L ALT (4-34) U/L Alkaline Phosphatase (38-126) U/L Troponin I <0.012 (0.000-0.034) ng/mL NT-Pro-B Natriuret Pep 34 pg/mL Total Protein (6.3-8.2) g/dL Albumin (3.5-5.0) g/dL Lipase (23-300) U/L Disposition Clinical Impression: Chest pain, Intractable vomiting Disposition: ADMITTED IP TO THIS HOSP Condition: Stable Is patient prescribed a controlled substance at d/c from ED?: No Referrals: Daniel Mosqueda MD [Primary Care Provider] - 1-2 days Decision to Admit Reason: Admit from EC Decision Date: 07/03/21 Decision Time: 14:40
[2021-07-03 13:41] LABS: Anisocytosis Slight; Basophils % (A) 0 %; Eosinophils # (A) 0.3 k/uL (0-0.7); Eosinophils % (A) 3 %; HCT 43.1 % (34.0-46.0); HGB 14.9 gm/dL (11.4-16.0); Hyperchromasia Slight; Lymphocytes # (A) 2.5 k/uL (1.0-4.8); Lymphocytes % (A) 25 %; MCH 29.8 pg (25.0-35.0); MCHC 34.7 g/dL (31.0-37.0); MCV 86.1 fL (80.0-100.0); Mean Platelet Volume 9.5; Monocytes # (A) 0.6 k/uL (0-1.0); Monocytes % (A) 6 %; Neutrophils # (A) 6.4 k/uL (1.3-7.7); Neutrophils % (A) 65 %; Platelet Count 244 k/uL (150-450); Poikilocytosis Slight; RDW 16.2 % (11.5-15.5)
[2021-07-03 13:54] LABS: Albumin 4.5 g/dL (3.5-5.0); Calcium 9.6 mg/dL (8.4-10.2); Potassium 4.6 mmol/L (3.5-5.1); Total Bilirubin 0.6 mg/dL (0.2-1.3); Total Protein 7.4 g/dL (6.3-8.2)
[2021-07-03 13:55] LABS: Partial Thromboplastin Time 44.2 sec (22.0-30.0); Prothrombin Time 47.9 sec (9.0-12.0)
--- NOTE | 2021-07-03 13:55 | XR ---
EXAMINATION TYPE: XR chest 1V portable DATE OF EXAM: 07/03/2021 Comparison: 06/15/2021 Clinical History: 55-year-old female chest pain Findings: Left anterior chest wall AICD generator with right atrial, right ventricular, and coronary sinus lead s. Heart normal size. Hyperinflation. Hazy lower lung densities likely related to overlying soft tiss ue. Allowing for this limitation, there is some strandy atelectasis in the lower lungs but no zion c onsolidation or sizable pleural effusion. Impression: COPD. Hazy lower lung densities related to overlying soft tissue. No definite acute process.
[2021-07-03] MEDS ORDERED: METOCLOPRAMIDE 5 MG/ML 2 ML VIAL IVP STA (14:10)
[2021-07-03] MEDS ORDERED: LORazepam 2 MG/ML INJ IV STA (14:10)
[2021-07-03] MEDS ORDERED: MAG HYDROX/AL HYDROX/SIMETH 30 ML, HYOSCYAMINE ELIXIR 10 ML, LIDOCAINE VISCOUS 2% 10 ML PO STA ×3 (14:11)
[2021-07-03] MEDS ORDERED: ONDANSETRON 4 MG/2 ML VIAL IVP PRN (14:38)
[2021-07-03] MEDS ORDERED: ACETAMINOPHEN TAB 325 MG TAB PO PRN (14:38)
[2021-07-03] MEDS ORDERED: NALOXONE 0.4 MG/ML 1 ML VIAL IV PRN (14:38)
[2021-07-03] MEDS ORDERED: LORazepam 2 MG/ML INJ IV PRN (14:38)
[2021-07-03 17:00] VITALS: PULSE 96
[2021-07-03] MEDS ORDERED: ALPRAZolam 0.5 MG TAB PO PRN (17:22)
[2021-07-03] MEDS ORDERED: carvediloL 6.25 MG TAB PO SCH (17:30)
[2021-07-03 17:58] VITALS: BP 108/69
[2021-07-03] MEDS ORDERED: ATORVASTATIN 10 MG TAB PO SCH (21:00)
[2021-07-03] MEDS ORDERED: SPIRONOLACTONE 25 MG TAB PO SCH (21:00)
[2021-07-04] MEDS ORDERED: PANTOPRAZOLE 40 MG/10 ML VIAL IV SCH (09:00)
[2021-07-04] MEDS ORDERED: AMIODARONE 200 MG TAB PO SCH (09:00)
--- NOTE | 2021-07-04 19:49 | HP ---
HISTORY AND PHYSICAL DATE OF SERVICE: 07/03/2021 CHIEF COMPLAINT: Shortness of breath, cough and chest pain. HISTORY OF PRESENT ILLNESS: This is another admission for this 55-year-old white female with numerous medical problems in the past including coronary artery disease, cardiomyopathy, congestive heart failure, COPD, hyperlipidemia, history of pulmonary emboli, and others. She called the office that she was having a great deal of difficulty with breathing with anterior chest pain and that she was Covid positive. She was sent to the emergency room for evaluation. After her workup, it was recommended that she come into the hospital for further diagnostic workup and treatment. REVIEW OF SYSTEMS: Was not obtained. Past medical history, family history and personal and social histories are unremarkable except she is ALLERGIC to DILAUDID. Her medications have included: Xanax atorvastatin, Jantoven 7.5 mg, spironolactone, lisinopril, carvedilol, Symbicort, Fiorinal, Percocet, trazodone, amiodarone and Ventolin. Her cardiomyopathy has thought to be based on a viral infection in the past. She has had 4 pregnancies and 4 deliveries. She has smoked in the past and does not drink. PHYSICAL EXAMINATION: Blood pressure 132/60 with a pulse of 100, respiration of 18 and temperature 99. In general, she appeared to be slightly short of breath. Face was flushed. Head, ears, eyes, nose, mouth and throat were otherwise normal. Neck veins not distended. Chest demonstrated slightly decreased breath sounds with scattered rales and rhonchi. Cardiac exam demonstrated an S4. Abdomen is soft and nontender without visceromegaly or masses. Bowel sounds are present. Extremities are normal. Neurologically, she is intact. IMPRESSION: She is admitted to the hospital with diagnoses: 1. Chest pain. 2. Covid pneumonitis. 3. History of cardiomyopathy. 4. Congestive heart failure. 5. Coronary artery disease. 6. Previous pulmonary emboli. 7. Depression. 8. Anxiety. PLAN: 1. Bedrest. 2. IV fluids. 3. Consult with pulmonology. 4. Consult with Cardiology. MMODL / IJN: [id number] /
--- NOTE | 2021-07-04 21:16 | DS ---
DISCHARGE SUMMARY DATE OF DISCHARGE: 07/03/2021 CHIEF COMPLAINT: Chest pain and COVID pneumonia. HISTORY OF PRESENT ILLNESS AND PHYSICAL EXAMINATION: Details of this lady's history and physical can be found in the initial workup. LABORATORY STUDIES: While she was in the hospital she had laboratory studies, details of which can be found in the laboratory section of her chart. COURSE IN THE HOSPITAL: After admission she was placed on bedrest, started on intravenous fluids and was to be admitted and managed for her chest pain and COVID pneumonia. However, she signed herself out AGAINST MEDICAL ADVICE. FINAL DIAGNOSES: 1. Chest pain, etiology unknown. 2. COVID pneumonia. 3. Cardiomyopathy. 4. Congestive heart failure. 5. History of previous pulmonary emboli. 6. Depression. OPERATIONS: None. CONSULTATIONS: None. She was not improved. She signed out AMA. NEERAJ / SAKINA: [id number] /
== END 2021-07-03 18:36 | disposition left against medical advice (07) ==
LOC: EC 12:43 → 6NMEDSUR 14:38
PROVIDERS: ADMIT Family Medicine; ATTEND Family Medicine
DX: R07.89 Other chest pain (principal); U07.1 COVID-19; J12.82 Pneumonia due to coronavirus disease 2019; J44.0 Chronic obstructive pulmonary disease with (acute) lower respiratory infection; I25.5 Ischemic cardiomyopathy; I11.0 Hypertensive heart disease with heart failure; I50.9 Heart failure, unspecified; Z53.29 Procedure and treatment not carried out because of patient's decision for other reasons; I25.2 Old myocardial infarction; I25.10 Atherosclerotic heart disease of native coronary artery without angina pectoris; E78.5 Hyperlipidemia, unspecified; I67.1 Cerebral aneurysm, nonruptured; F32.A Depression, unspecified; F41.9 Anxiety disorder, unspecified; Z79.899 Other long term (current) drug therapy; Z79.01 Long term (current) use of anticoagulants; Z88.5 Allergy status to narcotic agent; Z86.711 Personal history of pulmonary embolism; Z87.891 Personal history of nicotine dependence; Z87.01 Personal history of pneumonia (recurrent); Z90.49 Acquired absence of other specified parts of digestive tract; Z95.810 Presence of automatic (implantable) cardiac defibrillator; Z83.3 Family history of diabetes mellitus; Z82.49 Family history of ischemic heart disease and other diseases of the circulatory system
CPT/HCPCS: 99285; 96374; 96375; 36415; 93005; 83880; 80053; 83690; 83735; 84484; 85025; 85610; 85730; 87635; 71045; G0378; J2060; J2270; J2765; J2405; C9113

== ENCOUNTER 2021-07-19 06:27 | Observation (INO) | payer MEDICARE ==
[2021-07-19] MEDS ORDERED: NITROGLYCERIN OINT 1 INCH/GM PACKET TOPICAL STA (07:25)
[2021-07-19] MEDS ORDERED: IPRATROPIUM-ALBUTEROL 3 ML NEB INHALATION STA (07:25)
[2021-07-19] MEDS ORDERED: SODIUM CHLORIDE 0.9% 1,000 ML IV STA (07:25)
[2021-07-19 07:39] LABS: Anisocytosis Slight; Basophils % (A) 0 %; Eosinophils # (A) 0.2 k/uL (0-0.7); Eosinophils % (A) 3 %; HCT 44.2 % (34.0-46.0); HGB 14.9 gm/dL (11.4-16.0); Lymphocytes # (A) 2.3 k/uL (1.0-4.8); Lymphocytes % (A) 29 %; MCH 29.9 pg (25.0-35.0); MCHC 33.7 g/dL (31.0-37.0); MCV 88.8 fL (80.0-100.0); Mean Platelet Volume 8.9; Monocytes # (A) 0.4 k/uL (0-1.0); Monocytes % (A) 5 %; Neutrophils # (A) 4.9 k/uL (1.3-7.7); Neutrophils % (A) 61 %; Platelet Count 194 k/uL (150-450); Poikilocytosis Slight; RBC 4.97 m/uL (3.80-5.40); RDW 17.2 % (11.5-15.5)
--- NOTE | 2021-07-19 07:42 | ED ---
Chest Pain HPI - General Chief Complaint: Chest Pain Stated Complaint: Chest Pain, Palpitations Time Seen by Provider: 07/19/21 07:05 Source: patient, RN notes reviewed, old records reviewed Mode of arrival: wheelchair Limitations: no limitations - History of Present Illness Initial Comments: 55-year-old female history of cardiomyopathy who states she started developing chest heaviness last evening between 4 and 5 PM 6-10 severity she also had some shortness of breath associated with this. He states the heaviness persisted throughout the evening to give better after taking her own nitroglycerin this morning. She does demonstrate she's states exertional dyspnea he states she's also very anxious. She's not had pain quite like this before. She has a history again of the cardiomyopathy he does have a pacer. No overt fevers chills or sweats MD Complaint: chest pain, other - Related Data Home Medications Medication Instructions Recorded Confirmed Spironolactone [Aldactone] 25 mg PO HS 08/15/20 07/03/21 ALPRAZolam [Xanax] 0.5 mg PO TID PRN 06/20/21 07/03/21 Amiodarone [Cordarone] 200 mg PO DAILY 06/20/21 07/03/21 Atorvastatin [Lipitor] 10 mg PO HS 06/20/21 07/03/21 Warfarin Sodium [Jantoven] 7.5 mg PO W/SUPPER 06/20/21 07/03/21 Acetaminophen-Codeine 300-30mg 1 tab PO Q6H PRN 07/03/21 07/03/21 [Tylenol w/codeine #3] Previous Rx's Medication Instructions Recorded carvediloL [Coreg] 6.25 mg PO BID-W/MEALS #180 tab 04/08/20 lisinopriL [Zestril] 2.5 mg PO DAILY #90 tab 04/08/20 Allergies Allergy/AdvReac Type Severity Reaction Status Date / Time hydromorphone [From Dilaudid] AdvReac Vomiting Verified 07/19/21 06:33 Review of Systems ROS Statement: Those systems with pertinent positive or pertinent negative responses have been documented in the HPI. ROS Other: All systems not noted in ROS Statement are negative. EKG Findings - EKG Results: EKG: interpreted by TEJ (Pacemaker rhythm ventricular rate 101 NC interval 128 QRS 170 QT since QTC 436/565 this is compared with EKG dated some configuration.) Past Medical History Past Medical History: Chest Pain / Angina, COPD, Hyperlipidemia, Hypertension, Myocardial Infarction ([place]), Pneumonia, Pulmonary Embolus (PE) Additional Past Medical History / Comment(s): cardiomyopathy, PE ( 5yrs ago), brain aneursym Last Myocardial Infarction Date:: 5 yrs ago History of Any Multi-Drug Resistant Organisms: None Reported Past Surgical History: AICD, Cholecystectomy, Heart Catheterization Additional Past Surgical History / Comment(s): AICD defibrillator placed 5 years ago Past Anesthesia/Blood Transfusion Reactions: No Reported Reaction Type of Cardiac Device: AICD Device Placement Date:: 2015 Past Psychological History: Anxiety, Depression Smoking Status: Former smoker Past Alcohol Use History: None Reported Past Drug Use History: None Reported - Past Family History Mother Family Medical History: Diabetes Mellitus, Hypertension Father Family Medical History: No Reported History General Exam - General Exam Comments Initial Comments: This a well-developed well-nourished awake alert oriented 3 female Limitations: no limitations General appearance: alert, anxious Head exam: Present: atraumatic, normocephalic, normal inspection Eye exam: Present: normal appearance, PERRL, EOMI. Absent: scleral icterus, conjunctival injection, periorbital swelling ENT exam: Present: mucous membranes dry Neck exam: Present: normal inspection, full ROM, other (No stridor JVD or bruits). Absent: tenderness, meningismus, lymphadenopathy Respiratory exam: Present: normal lung sounds bilaterally, decreased breath sounds. Absent: respiratory distress, wheezes, rales, rhonchi, stridor, chest wall tenderness Cardiovascular Exam: Present: normal rhythm, tachycardia, normal heart sounds. Absent: systolic murmur, diastolic murmur, rubs, gallop, clicks GI/Abdominal exam: Present: soft, normal bowel sounds. Absent: distended, tenderness, guarding, rebound, rigid Extremities exam: Present: normal inspection, full ROM, normal capillary refill. Absent: tenderness, pedal edema, joint swelling, calf tenderness Back exam: Present: normal inspection Neurological exam: Present: alert, oriented X3, CN II-XII intact Psychiatric exam: Present: normal affect, normal mood Skin exam: Present: warm, dry, intact, normal color. Absent: rash Course Vital Signs 07/19/21 07/19/21 07/19/21 06:33 07:00 09:34 Temperature 97.6 F Pulse Rate 116 H 98 79 Respiratory 18 22 Rate Blood Pressure 118/83 O2 Sat by Pulse 96 97 Oximetry 07/19/21 09:41 Temperature Pulse Rate 76 Respiratory Rate Blood Pressure O2 Sat by Pulse Oximetry Chest Pain MDM - MDM Imaging reviewed no acute findings patient reevaluated chest pain has resolved after nitroglycerin. I did discuss case the patient as well as Dr. Mosqueda the patient be admitted for inpatient evaluation and treatment cardiology consultation. Critical Care Time Critical Care Time: Yes Total Critical Care Time: 31 Critical Care Time: Critical care time includes initial presentation with history physical labs x- rays reevaluation patient responsive therapy review of old charting was available discussed with the patient regarding findings discussed with the admitting physician admission orders and documentation of the above Disposition Clinical Impression: Chest pain, Unstable angina Disposition: ADMITTED IP TO THIS [facility] Condition: Fair Referrals: Dnaiel Mosqueda MD [Primary Care Provider] - 1-2 days
[2021-07-19 07:51] LABS: Albumin 4.3 g/dL (3.5-5.0); Calcium 9.3 mg/dL (8.4-10.2); Potassium 3.7 mmol/L (3.5-5.1); Total Bilirubin 0.6 mg/dL (0.2-1.3); Total Protein 7.2 g/dL (6.3-8.2)
[2021-07-19 07:59] LABS: INR 4.8 (<1.2); Partial Thromboplastin Time 42.3 sec (22.0-30.0); Prothrombin Time 46.7 sec (9.0-12.0)
--- NOTE | 2021-07-19 08:01 | XR ---
EXAMINATION TYPE: XR chest 2V DATE OF EXAM: 07/19/2021 7:52 AM COMPARISON:Chest radiographs from 1620 CLINICAL INDICATION:Female, 55 years old with history of Chest Pain; TECHNIQUE: Frontal and lateral views of the chest. FINDINGS: Lungs/Pleura: There is flattening of the diaphragm with increased lucency of the lungs. No evidence o f pneumothorax, pleural effusion or focal consolidation. Pulmonary vascularity: Unremarkable. Heart/mediastinum: Cardiomediastinal silhouette is unremarkable. Musculoskeletal: No acute osseous pathology. Other findings: Three lead cardiac conduction device overlying the left hemithorax with lead tips projecting over the right ventricle, right atrium and coronary sinus. IMPRESSION: Chronic changes without acute pulmonary process. No significant change from prior.
[2021-07-19] MEDS ORDERED: LORazepam 2 MG/ML INJ IV STA (08:25)
[2021-07-19] MEDS ORDERED: NITROGLYCERIN SL TABS 0.4 MG TAB SUBLINGUAL PRN (10:22)
[2021-07-19] MEDS: ALPRAZolam 0.5 MG TAB PO PRN ×2 (12:28→23:37)
[2021-07-19] MEDS: SODIUM CHLORIDE 0.9% 1,000 ML IV SCH ×2 (12:29→20:55)
[2021-07-19] MEDS: NITROGLYCERIN OINT 1 INCH/GM PACKET TOPICAL SCH ×3 (12:29→23:28)
[2021-07-19] MEDS: Acetaminophen-Codeine 300-30mg TAB PO PRN ×2 (12:42→18:49)
[2021-07-19] MEDS ORDERED: WARFARIN 7.5 MG TAB PO SCH (17:30)
[2021-07-19] MEDS ORDERED: WARFARIN 0.5 MG TAB PO ONE (18:00)
--- NOTE | 2021-07-19 18:10 | HP ---
HISTORY AND PHYSICAL CHIEF COMPLAINT: Chest pain. HISTORY OF PRESENT ILLNESS: This is another of many admissions for this 55-year-old female with a history of cardiomyopathy, coronary artery disease, cardiac arrhythmia, pulmonary emboli and other issues. She came to the emergency room after she had an episode of chest pain which she describes as tightness. She had slight sweatiness and she was short of breath. In the emergency room her cardiac enzymes are normal. She was admitted for observation. REVIEW OF SYSTEMS: She has had no other complaints, including syncope, fever, chills, cough, etc. Past medical history, family history, and personal and social histories are all otherwise unremarkable or unchanged from her recent admitting and discharge summaries. PHYSICAL EXAMINATION: Blood pressure is 135/86 with a pulse of 73, respirations of 17. She is afebrile. In general she appeared to be overweight and in no acute distress. Skin color is normal. Skin is warm and dry. Lymph nodes are not enlarged. Head, ears, eyes, nose and mouth and throat are normal. Neck veins are not distended. Thyroid is not enlarged. Chest is clear. Cardiac exam is normal except for atrial fibrillation. The abdomen is soft and slightly protuberant. There are no masses or visceromegaly. Extremities are normal. Neurologically she is intact. She is admitted to the hospital with diagnoses: 1. Chest pain. 2. History of coronary artery disease. 3. History of cardiomyopathy. 4. History of congestive heart failure. 5. Atrial fibrillation. 6. Previous pulmonary emboli. PLAN: 1. Bedrest. 2. IV fluids. 3. Serial EKGs and enzymes. 4. Cardiology consult. MMODL / IJN: [id number] /
[2021-07-19] MEDS: SPIRONOLACTONE 25 MG TAB PO SCH (20:52)
[2021-07-19] MEDS: carvediloL 6.25 MG TAB PO SCH (20:53)
[2021-07-19] MEDS: ATORVASTATIN 10 MG TAB PO SCH (20:53)
[2021-07-20] MEDS: Acetaminophen-Codeine 300-30mg TAB PO PRN (04:38)
[2021-07-20] MEDS: NITROGLYCERIN OINT 1 INCH/GM PACKET TOPICAL SCH ×4 (05:48→21:59)
[2021-07-20] MEDS: SODIUM CHLORIDE 0.9% 1,000 ML IV SCH ×3 (06:20→17:30)
[2021-07-20 07:29] LABS: INR 4.3 (<1.2); Prothrombin Time 41.3 sec (9.0-12.0)
[2021-07-20] MEDS: ASPIRIN 325 MG TAB PO SCH (09:14)
[2021-07-20] MEDS: carvediloL 6.25 MG TAB PO SCH ×2 (09:15→17:30)
[2021-07-20] MEDS: AMIODARONE 200 MG TAB PO SCH (09:15)
[2021-07-20 11:32] LABS: Chol/HDL Ratio 7.87 Ratio; LDL Cholesterol,Calculated 81.9 mg/dL (0.0-131.0)
--- NOTE | 2021-07-20 12:24 | P.CRDCN ---
History of Present Illness Consult date: 07/20/21 History of present illness: HISTORY OF PRESENTING ILLNESS This is a pleasant 55-year-old female past medical history significant for ventricle fibrillation, nonischemic cardiomyopathy, biventricular ICD implant, pulmonary embolism on Coumadin for anticoagulation, hypertension, COPD, former smoker. She follows in the office with Dr Reece. Patient has not been evalu ated in the office since 2017, due to loss of insurance. We have been asked to see in consultation for chest pain. Patient had Covid 06/01/2021. Since then she has developed chest heaviness. It has been increasingly worsening since , and radiates to her left side. It is exacerbated with activity and relieved by rest and nitroglycerin. Patient reports the chest pain is intermittent, when she does have chest pain she becomes very anxious and has shortness of breath. EKG shows patient is ventricular paced. Her troponins are negative 3. Patient's INR today is 4.3, Coumadin is being held. Blood pressure 113/73, heart rate 79, respirations 16, 94% on room air, afebrile. Will obtain an echocardiogram and Lexiscan stress test. DIAGNOSTICS EKG reveals ventricular paced. Chest xray chronic changes with out acute pulmonary process. Laboratory reviewed, WBC 8, hemoglobin 14.9, INR 4.3, d-dimer negative, sodium 137, potassium 3.7, B1 14, creatinine 0.9 to, AST 20, ALP 19, magnesium 2, troponins negative 3, proBNP 30, cholesterol 177, triglycerides 363, HDL 22, LDL 81. Current cardiac medications include amiodarone 200 mg daily, aspirin 325 mg daily, atorvastatin 10 mg daily, carvedilol 6.25 mg twice a day, lisinopril 2.5 mg daily, spironolactone 25 mg daily. Review of Systems REVIEW OF SYSTEMS At the time of my exam: CONSTITUTIONAL: Denies fever or chills. EYES: Negative for vision changes ENT: Negative for hearing loss CARDIOVASCULAR: Improved Chest heaviness, Denies shortness of breath, diaphoresis, orthopnea, PND or palpitations. VASCULAR: Denies edema RESPIRATORY: Denies cough. GASTROINTESTINAL: Denies abdominal pain, diarrhea, constipation, nausea or vomiting. MUSCULOSKELETAL: Denies myalgias. NEUROLOGIC: Denies numbness, tingling, headache or weakness. ENDOCRINE: Denies fatigue, weight change, polydipsia or polyurina. GENITOURINARY: Denies burning, hematuria or urgency with micturation. HEMATOLOGIC: Denies history of anemia or bleeding. DERMATOLOGY: Denies rash or skin sores PSYCH: Negative for depression or hallucinations. Past Medical History Past Medical History: Chest Pain / Angina, COPD, Hyperlipidemia, Hypertension, Myocardial Infarction ([place]), Pneumonia, Pulmonary Embolus (PE) Additional Past Medical History / Comment(s): cardiomyopathy, PE (5yrs ago), brain aneursym Last Myocardial Infarction Date:: 5 yrs ago History of Any Multi-Drug Resistant Organisms: None Reported Past Surgical History: AICD, Cholecystectomy, Heart Catheterization Additional Past Surgical History / Comment(s): AICD defibrillator placed 5 years ago Past Anesthesia/Blood Transfusion Reactions: No Reported Reaction Type of Cardiac Device: AICD Device Placement Date:: 2015 Smoking Status: Former smoker - Past Family History Mother Family Medical History: Diabetes Mellitus, Hypertension Father Family Medical History: No Reported History Medications and Allergies Home Medications Medication Instructions Recorded Confirmed Type carvediloL [Coreg] 6.25 mg PO BID-W/MEALS #180 tab 04/08/20 07/19/21 Rx lisinopriL [Zestril] 2.5 mg PO DAILY #90 tab 04/08/20 07/19/21 Rx Spironolactone [Aldactone] 25 mg PO HS 08/15/20 07/19/21 History ALPRAZolam [Xanax] 0.5 mg PO TID PRN 06/20/21 07/19/21 History Amiodarone [Cordarone] 100 mg PO DAILY 06/20/21 07/19/21 History Atorvastatin [Lipitor] 10 mg PO HS 06/20/21 07/19/21 History Warfarin Sodium [Jantoven] 7.5 mg PO W/SUPPER 06/20/21 07/19/21 History Allergies Allergy/AdvReac Type Severity Reaction Status Date / Time hydromorphone [From Dilaudid] AdvReac Vomiting Verified 07/19/21 10:56 Physical Exam Vitals: Vital Signs Temp Pulse Resp BP Pulse Ox 07/20/21 07:00 97.7 F 79 16 113/73 94 L 07/20/21 02:00 16 07/20/21 01:12 98.2 F 84 16 95/58 95 07/19/21 20:00 16 07/19/21 19:19 98.3 F 85 16 112/70 96 07/19/21 15:15 16 95 07/19/21 15:00 98.2 F 98 16 116/66 88 L Intake and Output 07/19/21 07/20/21 07/20/21 22:59 06:59 14:59 Intake Total 240 Balance 240 Intake: Oral 240 Other: # Voids 1 PHYSICAL EXAMINATION VITAL SIGNS: Reviewed CONSTITUTIONAL: No apparent distress. HEENT: Head is normocephalic. Pupils are equal, round. Sclerae anicteric. Mucous membranes of the mouth are moist. NECK: No JVD. No carotid bruit. RESPIRATORY: Lungs are clear to auscultation. No chest wall tenderness is noted on palpation or with deep breathing. CARDIAC: Ventricular paced, controlled rate, S2 heard. No murmurs, gallops or rub. ABDOMEN: Soft, nontender. EXTREMITIES: 2+ peripheral pulses, no lower extremity edema and no calf tenderness. NEUROLOGIC EXAMINATION: Patient is awake, alert and oriented x3. INTEGUMENTARY: Warm, absent for rashes or sores PSYCH: Negative for depression or hallucinations, mood appropriate. Results 07/19/21 07:26 07/19/21 07:26 Cardiac Enzymes 07/19/21 07/19/21 Range/Units 11:22 14:28 Troponin I <0.012 <0.012 (0.000-0.034) ng/mL Coagulation 07/20/21 Range/Units 06:23 PT 41.3 H (9.0-12.0) sec Lipids 07/20/21 Range/Units 06:23 Triglycerides 363.00 H (0.00-149.00) mg/dL Cholesterol 177.00 (0.00-200.00) mg/dL HDL Cholesterol 22.50 L (40.00-60.00) mg/dL Cholesterol/HDL Ratio 7.87 Ratio Current Medications Generic Name Dose Route Start Last Admin Trade Name Freq PRN Reason Stop Dose Admin Acetaminophen/Codeine Phosphate 1 each 07/19/21 10:07/20/21 04:38 Acetaminophen-Codeine 300-30mg Tab PO 1 each Q6H PRN Administration Pain Alprazolam 0.5 mg 07/19/21 10:07/19/21 23:37 Alprazolam 0.5 Mg Tab PO 0.5 mg TID PRN Administration Anxiety Aminophylline 100 mg 07/21/21 06:00 Aminophylline 500 Mg/20 Ml Vial IV 07/21/21 20:00 ONCE PRN Patient Response Amiodarone HCl 200 mg 07/20/21 09:00 07/20/21 09:15 Amiodarone 200 Mg Tab PO 200 mg DAILY DUNCAN Administration Aspirin 325 mg 07/20/21 09:00 07/20/21 09:14 Aspirin 325 Mg Tab PO 325 mg DAILY DUNCAN Administration Atorvastatin Calcium 10 mg 07/19/21 21:00 07/19/21 20:53 Atorvastatin 10 Mg Tab PO 10 mg HS DUNCAN Administration Caffeine Citrate 60 mg 07/21/21 06:00 Caffeine Citrate 60 Mg/3 Ml Vial IV 07/21/21 20:00 ONCE PRN Patient Response Carvedilol 6.25 mg 07/19/21 17:30 07/20/21 09:15 Carvedilol 6.25 Mg Tab PO 6.25 mg BID-W/MEALS DUNCAN Administration Sodium Chloride 1,000 mls @ 100 mls/hr 07/19/21 10:30 07/20/21 07:51 Saline 0.9% IV 100 mls/hr .Q10H DUNCAN Administration Lisinopril 2.5 mg 07/20/21 09:00 07/20/21 09:15 Lisinopril 2.5 Mg Tab PO 2.5 mg DAILY DUNCAN Administration Miscellaneous Information 1 each 07/19/21 10:58 Warfarin Per Pharmacy MISCELLANE DIRECTED PRN Per Protocol Nitroglycerin 0.4 mg 07/19/21 10:22 Nitroglycerin Sl Tabs 0.4 Mg Tab SUBLINGUAL Q5M PRN Chest Pain Nitroglycerin 1 inch 07/19/21 12:00 07/20/21 11:39 Nitroglycerin Oint 1 Inch/Gm Packet TOPICAL Not Given Q6HR DUNCAN Regadenoson 0.4 mg 07/21/21 06:00 Regadenoson 0.4 Mg/5 Ml Syringe IV 07/21/21 20:00 ONCE PRN Per Protocol Spironolactone 25 mg 07/19/21 21:00 07/19/21 20:52 Spironolactone 25 Mg Tab PO 25 mg HS DUNCAN Administration Warfarin Sodium 0 mg 07/20/21 18:00 Warfarin 0.5 Mg Tab PO 07/20/21 18:01 ONCE@1800 ONE Intake and Output 07/19/21 07/20/21 07/20/21 22:59 06:59 14:59 Intake Total 240 Balance 240 Intake: Oral 240 Other: # Voids 1 07/19/21 07:26 07/19/21 07:26 Assessment and Plan Assessment: Pericardial chest pain Nonischemic cardiomyopathy Ventricular fibrillation, status post ICD Hypertension Hyperlipidemia Pulmonary embolism Plan: Will obtain an echocardiogram to evaluate myocardial function Will obtain a Lexiscan stress test to rule out myocardial ischemia Pulmonary embolism, anticoagulation Coumadin on hold due to elevated INR Will redraw INR tomorrow Continue with amiodarone Continue with lisinopril, Coreg, Aldactone, and Lipitor Continue all other current cardiac medications Continue with telemetry monitoring Further recommendations pending patient's clinical course The above impression and plan of care have been discussed and directed by the signing physician. Sarah Bland, nurse practitioner, acting as scribe for signing physician.
--- NOTE | 2021-07-20 13:29 | PN ---
PROGRESS NOTE CHIEF COMPLAINT: Chest pain. HISTORY OF PRESENT ILLNESS: This lady is doing well. She has had no shortness of breath. All of her studies been negative so far. She is going down for a stress study tomorrow by Cardiology. PHYSICAL EXAMINATION: Her vital signs are normal. Her chest is clear. Cardiac exam is unremarkable. Abdomen is soft, nontender. IMPRESSION: 1. Chest pain. 2. Cardiomyopathy. 3. Previous pulmonary emboli. 4. Coronary artery disease. PLAN: 1. Increase activity. 2. As she is having trouble with insomnia, trazodone 100 mg at bedtime will be ordered. 3. Stress study tomorrow. MMODL / IJN: [id number] /
[2021-07-20] MEDS: ALPRAZolam 0.5 MG TAB PO PRN ×2 (14:58→21:59)
[2021-07-20] MEDS ORDERED: WARFARIN 0.5 MG TAB PO ONE (18:00)
[2021-07-20] MEDS ORDERED: traZODone HCL 100 MG TAB PO SCH (21:00)
[2021-07-20] MEDS: ATORVASTATIN 10 MG TAB PO SCH (21:59)
[2021-07-20] MEDS: SPIRONOLACTONE 25 MG TAB PO SCH (21:59)
[2021-07-21] MEDS: NITROGLYCERIN OINT 1 INCH/GM PACKET TOPICAL SCH ×2 (04:53→12:46)
[2021-07-21] MEDS: SODIUM CHLORIDE 0.9% 1,000 ML IV SCH ×2 (04:54→12:46)
[2021-07-21] MEDS ORDERED: CAFFEINE CITRATE 60 MG/3 ML VIAL IV PRN (06:00)
[2021-07-21] MEDS ORDERED: AMINOPHYLLINE 500 MG/20 ML VIAL IV PRN (06:00)
[2021-07-21] MEDS ORDERED: REGADENOSON 0.4 MG/5 ML SYRINGE IV PRN (06:00)
[2021-07-21] MEDS: ASPIRIN 325 MG TAB PO SCH (08:51)
--- NOTE | 2021-07-21 11:08 | NM ---
EXAMINATION TYPE: NM stress lexiscan cardiolite DATE OF EXAM: 07/21/2021 COMPARISON: CTA chest June 20, 2021 HISTORY: Chest pain. History of hypertension and prior heart catheterization along with hypercholeste rolemia and prior tobacco use presents with chest pain and difficulty breathing along with palpitatio ns. TECHNIQUE: After the intravenous administration of 10.3 mCi Tc 99m Sestamibi - Cardiolite resting SP ECT images acquired 45 minutes post injection. The patient received 0.4mg Lexiscan, 25.7 mCi Tc 99m Sestamibi - Stress images obtained [address] injection FINDINGS: Review of stress and rest SPECT images demonstrates poor uptake at level of apex presumed old infarct . No convincing evidence of reversible ischemia. Gated analysis shows normal wall motion with an est imated left ventricular ejection fraction of 45 %. IMPRESSION: No scintigraphic evidence for reversible ischemia.
[2021-07-21 12:30] LABS: INR 1.6 (<1.2); Prothrombin Time 16.2 sec (9.0-12.0)
[2021-07-21] MEDS: carvediloL 6.25 MG TAB PO SCH (12:48)
[2021-07-21] MEDS: ALPRAZolam 0.5 MG TAB PO PRN (12:49)
[2021-07-21] MEDS: AMIODARONE 200 MG TAB PO SCH (12:49)
--- NOTE | 2021-07-21 12:50 | P.PN ---
Subjective HISTORY OF PRESENTING ILLNESS This is a pleasant 55-year-old female past medical history significant for ventricle fibrillation, nonischemic cardiomyopathy, biventricular ICD implant, pulmonary embolism on Coumadin for anticoagulation, hypertension, COPD, former smoker. She follows in the office with Dr Reece. Patient has not been evaluated in the office since 2017, due to loss of insurance. We have been asked to see in consultation for chest pain. Patient had Covid 06/01/2021. Since then she has developed chest heaviness. It has been increasingly worsening since , and radiates to her left side. It is exacerbated with ac tivity and relieved by rest and nitroglycerin. Patient reports the chest pain is intermittent, when she does have chest pain she becomes very anxious and has shortness of breath. EKG shows patient is ventricular paced. Her troponins are negative 3. Patient's INR today is 4.3, Coumadin is being held. Blood pressure 113/73, heart rate 79, respirations 16, 94% on room air, afebrile. Will obtain an echocardiogram and Lexiscan stress test. DIAGNOSTICS EKG reveals ventricular paced. Chest xray chronic changes with out acute pulmonary process. Laboratory reviewed, WBC 8, hemoglobin 14.9, INR 4.3, d-dimer negative, sodium 137, potassium 3.7, B1 14, creatinine 0.9 to, AST 20, ALP 19, magnesium 2, troponins negative 3, proBNP 30, cholesterol 177, triglycerides 363, HDL 22, LDL 81. Current cardiac medications include amiodarone 200 mg daily, aspirin 325 mg daily, atorvastatin 10 mg daily, carvedilol 6.25 mg twice a day, lisinopril 2.5 mg daily, spironolactone 25 mg daily. 1/3 Patient seen and examined. Patient still having some episodes of chest pain including overnight however this felt more epigastric and substernal as opposed the pain that brought her in was more of her left nipple. She states she did work last night and this improved the pain. She underwent Lexiscan stress test which showed fixed apical defect which may be related to apical thinning versus breast attenuation artifact however no reversible perfusion defects. PHYSICAL EXAMINATION Vital signs reviewed. CONSTITUTIONAL: No apparent distress. HEENT: Head is normocephalic. Pupils are equal, round. Sclerae anicteric. Mucous membranes of the mouth are moist. No JVD. No carotid bruit. CHEST EXAMINATION: Lungs are clear to auscultation. No chest wall tenderness is noted on palpation or with deep breathing. HEART EXAMINATION: Regular rate and rhythm. S1, S2 heard. No murmurs, gallops or rub. ABDOMEN: Soft, nontender. Positive bowel sounds. EXTREMITIES: 2+ peripheral pulses, no lower extremity edema and no calf tenderness. NEUROLOGIC EXAMINATION: Patient is awake, alert and oriented x3. Assessment Atypical chest pain, appears mix of musculoskeletal and possible GERD Nonischemic cardiomyopathy Ventricular fibrillation, status post ICD Hypertension Hyperlipidemia Pulmonary embolism Supratheraputic INR, improved Plan: Lexiscan reviewed with no inducible ischemia, fixed apical defect which may be apical thinning versus breast attenuation artifact. Chest pain is atypical and does not appear cardiac. Patient stable for discharge home. Resume Coumadin at home dosing of 7.5 daily to start tonight. F/U in office in one week. Objective - Vital Signs Vital signs: Vital Signs Temp 97.6 F 07/21/21 07:00 Pulse 78 07/21/21 07:00 Resp 16 07/21/21 07:00 BP 110/62 07/21/21 07:00 Pulse Ox 92 L 07/21/21 07:00 Intake & Output 07/20/21 07/21/21 07/21/21 18:59 06:59 18:59 Intake Total 1278 Balance 1278 Intake: Intake, IV Titration 800 Amount Sodium Chloride 0.9% 1, 800 000 ml @ 100 mls/hr IV . Q10H DUNCAN Rx#:[id number] Oral 478 Other: # Voids 4 3 # Bowel Movements 1 1 - Labs CBC & Chem 7: 07/19/21 07:26 07/19/21 07:26 Labs: Abnormal Lab Results - Last 24 Hours (Table) 07/21/21 Range/Units 11:37 PT 16.2 H (9.0-12.0) sec INR 1.6 H (<1.2)
[2021-07-21 14:55] VITALS: BP 92/61; PULSE 73; RESP 20; TEMP 97.5
--- NOTE | 2021-07-21 16:00 | ECHOF ---
Referral Reason:chest pain MEASUREMENTS -------- HEIGHT: 172.7 cm WEIGHT: 90.7 kg BP: 88/55 RVIDd: 4.2 cm (< 3.3) IVSd: 1.6 cm (0.6 - 1.1) LVIDd: 5.2 cm (3.9 - 5.3) LVPWd: 1.7 cm (0.6 - 1.1) IVSs: 2.3 cm LVIDs: 3.6 cm LVPWs: 1.7 cm LAESV Index (A-L): 21.20 ml/m Ao Diam: 2.7 cm (2.0 - 3.7) AV Cusp: 2.0 cm (1.5 - 2.6) MV EXCURSION: 18.162 mm (> 18.000) MV EF SLOPE: 74 mm/s (70 - 150) EPSS: 2.7 cm MV E Shaheed: 0.97 m/s MV DecT: 222 ms MV A Shaheed: 0.88 m/s MV E/A Ratio: 1.11 FINDINGS -------- Sinus rhythm. This was a technically difficult study with suboptimal views. The left ventricular size is normal. There is moderate concentric left ventricular hypertrophy. O verall left ventricular systolic function is low-normal with, an EF between 50 - 55 %. The right ventricle is moderate to severely enlarged. Normal LA size by volume 22+/-6 ml/m2. The right atrium was not well visualized. Electronic pacemaker lead seen in the right atrial cavity . 3.0mg of Lumason was utilized for enhancement of images Interatrial and interventricular septum intact. There is no evidence of aortic regurgitation. There is no evidence of aortic stenosis. There is trace mitral regurgitation. Mild tricuspid regurgitation present. There is no evidence of pulmonary hypertension. The right v entricular systolic pressure, as measured by Doppler, is {RVSP}. There is no pulmonic regurgitation present. The aortic root size is normal. IVC Not well visulized. There is no pericardial effusion. CONCLUSIONS -------- 1. The left ventricular size is normal. 2. There is moderate concentric left ventricular hypertrophy. 3. Overall left ventricular systolic function is low-normal with, an EF between 50 - 55 %. 4. The right ventricle is moderate to severely enlarged. 5. There is trace mitral regurgitation. 6. Mild tricuspid regurgitation present. 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
[2021-07-21] MEDS ORDERED: WARFARIN 3 MG TAB PO SCH (18:00)
--- NOTE | 2021-07-22 08:48 | ECHOS ---
Stress Test Results/Findings: Exam Performed: Exam Date: Reason for Exam: Height: 5 ft 8 in Weight: 90.718 kg Protocol: Stage: Duration of Exercise: Resting Heart Rate: Resting Blood Pressure: Maximum Achieved Heart Rate: Maximum Achieved Blood Pressure: 85% PMHR: 100% PMHR: METS: Technologist Comment: Stress Test Results/Findings: At baseline EKG showed ventricular paced rhythm with nonspecific ST, T-wave abnormalities diffusely. Patient recieved IV infusion of Lexiscan 0.4mg and at peak infusion EKG showed no significant change from baseline. Conclusions: 1. Nondiagnostic stress EKG portion secondary to ventricular paced rhythm and abnormal baseline EKG. 2. Nuclear imaging to be reported separately. [facility]
--- NOTE | 2021-07-22 18:46 | DS ---
DISCHARGE SUMMARY CHIEF COMPLAINT: Chest pain. HISTORY OF PRESENT ILLNESS AND PHYSICAL EXAMINATION: Details of this lady's history and physical can be found in the initial workup. LABORATORY STUDIES: While she was in the hospital she had laboratory studies, details of which can be found in the laboratory section of her chart. COURSE IN THE HOSPITAL: After admission she was placed on bedrest, started on intravenous fluids and had serial troponins and they were negative. She was seen by Cardiology. After their evaluation, it was felt that she could go home and she will go home on her usual activity, medications and regular diet. She will be seen in the office in several days. FINAL DIAGNOSES: 1. Chest pain, noncardiac. 2. Cardiomyopathy. 3. Coronary artery disease. 4. Status post pulmonary embolism. 5. History of atrial fibrillation. OPERATIONS: None. CONSULTATIONS: Cardiology. She is improved. NEERAJ / SAKINA: [id number] /
== END 2021-07-21 16:56 | disposition home or self-care (01) ==
LOC: EC 06:27 → 6NMEDSUR 10:22
PROVIDERS: ADMIT Family Medicine; ATTEND Family Medicine
DX: R07.2 Precordial pain (principal); I42.8 Other cardiomyopathies; I25.10 Atherosclerotic heart disease of native coronary artery without angina pectoris; Z20.822 Contact with and (suspected) exposure to COVID-19; R10.13 Epigastric pain; R00.2 Palpitations; I48.91 Unspecified atrial fibrillation; I49.01 Ventricular fibrillation; I11.0 Hypertensive heart disease with heart failure; I50.9 Heart failure, unspecified; I67.1 Cerebral aneurysm, nonruptured; I25.2 Old myocardial infarction; E78.5 Hyperlipidemia, unspecified; J44.9 Chronic obstructive pulmonary disease, unspecified; F41.9 Anxiety disorder, unspecified; F32.A Depression, unspecified; Z79.01 Long term (current) use of anticoagulants; Z79.82 Long term (current) use of aspirin; Z79.899 Other long term (current) drug therapy; Z88.5 Allergy status to narcotic agent; Z86.16 Personal history of COVID-19; Z86.711 Personal history of pulmonary embolism; Z87.891 Personal history of nicotine dependence; Z95.810 Presence of automatic (implantable) cardiac defibrillator; Z87.01 Personal history of pneumonia (recurrent); Z90.49 Acquired absence of other specified parts of digestive tract; Z83.3 Family history of diabetes mellitus; Z82.49 Family history of ischemic heart disease and other diseases of the circulatory system
CPT/HCPCS: 99291; 96361 ×3; 96374; 36415; 94640; 93005; 93017; 85379; 83880; 80061; 80053; 83690; 83735; 84484; 85025; 85610 ×3; 85730; 87635; 71046; 78452; G0378 ×3; C8929; A9500; J2060; J2785; Q9950; 93306

== ENCOUNTER 2021-09-28 14:05 | Observation (INO) | payer MEDICARE ==
[2021-09-28] MEDS ORDERED: MORPHINE SULFATE 4 MG/ML SYRINGE IV STA (14:25)
[2021-09-28] MEDS ORDERED: NITROGLYCERIN OINT 1 INCH/GM PACKET TOPICAL STA (14:25)
[2021-09-28] MEDS ORDERED: ONDANSETRON 4 MG/2 ML VIAL IVP STA (14:25)
[2021-09-28] MEDS ORDERED: ASPIRIN 81 MG PO STA (14:25)
[2021-09-28] MEDS ORDERED: MAG HYDROX/AL HYDROX/SIMETH 30 ML, HYOSCYAMINE ELIXIR 10 ML, LIDOCAINE VISCOUS 2% 10 ML PO STA ×3 (14:26)
[2021-09-28 14:31] LABS: Basophils # (A) 0.1 k/uL (0-0.2); Basophils % (A) 1 %; Eosinophils # (A) 0.3 k/uL (0-0.7); Eosinophils % (A) 3 %; HCT 45.7 % (34.0-46.0); HGB 15.7 gm/dL (11.4-16.0); Lymphocytes # (A) 2.5 k/uL (1.0-4.8); Lymphocytes % (A) 26 %; MCH 30.4 pg (25.0-35.0); MCHC 34.4 g/dL (31.0-37.0); MCV 88.2 fL (80.0-100.0); Monocytes # (A) 0.5 k/uL (0-1.0); Monocytes % (A) 5 %; Neutrophils # (A) 6.2 k/uL (1.3-7.7); Neutrophils % (A) 64 %; Platelet Count 223 k/uL (150-450); Poikilocytosis Slight; RBC 5.18 m/uL (3.80-5.40); RDW 15.3 % (11.5-15.5); WBC 9.6 k/uL (3.8-10.6)
--- NOTE | 2021-09-28 14:38 | XR ---
EXAMINATION TYPE: XR chest 2V DATE OF EXAM: 09/28/2021 COMPARISON: 07/19/2021 HISTORY: Chest pain TECHNIQUE: 2 views FINDINGS: There are some coarse density in the medial left lower lobe. The other lung baker are fair ly clear. There is no heart failure. Heart size is normal. There is left axillary pacemaker. There is no pleural effusion. IMPRESSION: Mild fibrotic changes left lower lobe similar to the old exam. No heart failure.
[2021-09-28 14:39] LABS: Albumin 4.5 g/dL (3.5-5.0); Potassium 3.8 mmol/L (3.5-5.1); Total Bilirubin 0.7 mg/dL (0.2-1.3); Total Protein 7.7 g/dL (6.3-8.2)
[2021-09-28 14:45] LABS: INR 3.8 (<1.2); Partial Thromboplastin Time 37.6 sec (22.0-30.0); Prothrombin Time 37.9 sec (9.0-12.0)
[2021-09-28] MEDS ORDERED: LORazepam 2 MG/ML INJ IV STA (15:12)
[2021-09-28] MEDS ORDERED: methylPREDNISolone SOD SUCCI 125 MG/2 ML VIAL IV STA (16:30)
--- NOTE | 2021-09-28 16:30 | ED ---
Chest Pain HPI - General Chief Complaint: Chest Pain Stated Complaint: Chest pain Time Seen by Provider: 09/28/21 14:20 Source: patient Mode of arrival: wheelchair Limitations: no limitations - History of Present Illness Initial Comments: This 56-year-old female presents complaining of some chest pain. This is diffuse in nature but worse on the left side. She states that it seems to radiate into her nipple but also goes posteriorly. It is worse with deep inspiration. She describes it as a burning sensation in the middle of her chest but also a achiness. She also complains of some shortness of breath at times. She has had a slight increase in her cough recently. She has a history of COPD and takes breathing treatments at home. She does relate that she had a significant heart attack approximately 7 years ago and apparently was in cardiopulmonary arrest and in the ICU. She had a heart catheterization at that time and they did not identify any degree of stenosis and she did not require any stents. She states that her last stress test was just several months ago. She sees Dr. Taylor from cardiology. She denies any leg pain or swelling. She currently is on Coumadin and her level was checked to weeks ago and this was therapeutic. No other complaints or modifying factors. No fevers or chills. - Related Data Home Medications Medication Instructions Recorded Confirmed Spironolactone [Aldactone] 25 mg PO HS 08/15/20 07/19/21 ALPRAZolam [Xanax] 0.5 mg PO TID PRN 06/20/21 07/19/21 Amiodarone [Cordarone] 100 mg PO DAILY 06/20/21 07/19/21 Atorvastatin [Lipitor] 10 mg PO HS 06/20/21 07/19/21 Warfarin Sodium [Jantoven] 7.5 mg PO W/SUPPER 06/20/21 07/19/21 Previous Rx's Medication Instructions Recorded carvediloL [Coreg] 6.25 mg PO BID-W/MEALS #180 tab 04/08/20 lisinopriL [Zestril] 2.5 mg PO DAILY #90 tab 04/08/20 Allergies Allergy/AdvReac Type Severity Reaction Status Date / Time hydromorphone [From Dilaudid] AdvReac Vomiting Verified 07/19/21 10:56 Review of Systems ROS Statement: Those systems with pertinent positive or pertinent negative responses have been documented in the HPI. ROS Other: All systems not noted in ROS Statement are negative. Past Medical History Past Medical History: Chest Pain / Angina, COPD, Hyperlipidemia, Hypertension, Myocardial Infarction ([place]), Pneumonia, Pulmonary Embolus ([place]) Additional Past Medical History / Comment(s): cardiomyopathy, PE (5yrs ago), brain aneursym Last Myocardial Infarction Date:: 5 yrs ago History of Any Multi-Drug Resistant Organisms: None Reported Past Surgical History: AICD, Cholecystectomy, Heart Catheterization Additional Past Surgical History / Comment(s): AICD defibrillator placed 5 years ago Past Anesthesia/Blood Transfusion Reactions: No Reported Reaction Type of Cardiac Device: AICD Device Placement Date:: 2015 Past Psychological History: Anxiety, Depression Smoking Status: Former smoker Past Alcohol Use History: None Reported Past Drug Use History: None Reported - Past Family History Mother Family Medical History: Diabetes Mellitus, Hypertension Father Family Medical History: No Reported History General Exam - General Exam Comments Initial Comments: GENERAL: The patient is well nourished and well hydrated. VITAL SIGNS: Heart rate, blood pressure, respiratory rate reviewed as recorded in nurse's notes. EYES: Pupils are round and reactive. Extraocular movements are intact. No conjunctival / lid redness or swelling. ENT: No external evidence of injury, swelling, or ecchymosis. Airway is patent. Throat is clear. NECK: Nontender. No swelling or evidence of injury. No subcutaneous emphysema. Trachea is midline. No thyroid mass. HEART: Regular rate and rhythm. Good peripheral pulses. LUNGS/CHEST: Breath sounds clear and equal bilaterally. No rales, rhonchi, or wheezes. No ecchymosis, subcutaneous emphysema, or tenderness. ABDOMEN: Abdomen soft without tenderness. No palpable masses or organomegaly. No peritoneal signs. No abdominal wall swelling or ecchymosis. EXTREMITIES: No extremity tenderness. Normal muscle tone and function. No thoracolumbar tenderness. NEUROLOGIC: Sensation is grossly intact. Cranial nerve exam reveals face is symmetrical, tongue is midline, speech is clear. SKIN: No abrasions or ecchymosis is noted. No induration or masses noted. PSYCHIATRIC: Alert and oriented. Appears anxious at times. Limitations: no limitations Course Vital Signs 09/28/21 09/28/21 09/28/21 14:08 14:42 15:03 Temperature 98.2 F Pulse Rate 103 H 91 90 Respiratory 18 16 18 Rate Blood Pressure 134/85 106/84 96/68 O2 Sat by Pulse 98 97 Oximetry Chest Pain MDM - MDM The patient was seen and examined. All diagnostics were reviewed. She is placed on a flask fitter and no ectopy is identified. The EKG shows an electronic ventricular pacemaker with a heart rate of 98. Further analysis is difficult to determine due to paced rhythm. The cardiac profile lab was all essentially within normal limits. The chest x-ray showed some mild scarring. This is consistent with prior chest x-ray. The patient also has a IV established receives Pepcid as well as morphine. She receives aspirin as well as Nitropaste. She also later receives Ativan as she has significant anxiety which could potentially be contributing. She states that it felt like her heartburn at times and is given a GI cocktail. Overall, with her history, this felt as though she may benefit from admission to the hospital for further treatment. She states that she feels as though her COPD may be acting up and is requesting steroids and these will be initiated. Case will be discussed with primary care in the near future and she will be admitted to observation for further treatment. Disposition Clinical Impression: Chest pain, Unstable angina, Dyspnea, Anxiety Disposition: ADMITTED IP TO THIS HOSP Condition: Fair Instructions (If sedation given, give patient instructions): Chest Pain (ED) Is patient prescribed a controlled substance at d/c from ED?: No Referrals: Daniel Mosqueda MD [Primary Care Provider] - 1-2 days Time of Disposition: 16:30 Decision Date: 09/28/21 Decision Time: 16:30
[2021-09-28] MEDS ORDERED: MORPHINE SULFATE 2 MG/ML SYRINGE IVP PRN (16:32)
[2021-09-28] MEDS ORDERED: traZODone HCL 50 MG TAB PO PRN (17:04)
[2021-09-28] MEDS ORDERED: ALPRAZolam 0.5 MG TAB PO PRN (17:04)
[2021-09-28] MEDS ORDERED: WARFARIN 7.5 MG TAB PO SCH (17:30)
[2021-09-28] MEDS ORDERED: WARFARIN 0.5 MG TAB PO ONE (18:00)
[2021-09-28] MEDS: methylPREDNISolone SOD SUCCI 125 MG/2 ML VIAL IV SCH ×2 (18:10→20:42)
[2021-09-28] MEDS: carvediloL 6.25 MG TAB PO SCH (18:10)
[2021-09-28] MEDS ORDERED: ATORVASTATIN 10 MG TAB PO SCH (21:00)
[2021-09-28] MEDS ORDERED: SPIRONOLACTONE 25 MG TAB PO SCH (21:00)
[2021-09-29 03:10] VITALS: TEMP 98
[2021-09-29 06:59] LABS: INR 3.1 (<1.2); Prothrombin Time 30.8 sec (9.0-12.0)
[2021-09-29 08:22] VITALS: BP 102/60; PULSE 75; RESP 16
[2021-09-29] MEDS: methylPREDNISolone SOD SUCCI 125 MG/2 ML VIAL IV SCH (08:55)
[2021-09-29] MEDS ORDERED: ASPIRIN 81 MG PO SCH (09:00)
[2021-09-29] MEDS ORDERED: AMIODARONE 100 MG TAB PO SCH (09:00)
[2021-09-29] MEDS ORDERED: ASPIRIN 325 MG TAB PO SCH (09:00)
[2021-09-29] MEDS: carvediloL 6.25 MG TAB PO SCH (09:01)
[2021-09-29 09:55] LABS: Chol/HDL Ratio 10.26 Ratio; LDL Cholesterol,Calculated 257.7 mg/dL (0.0-131.0)
--- NOTE | 2021-09-29 09:59 | P.CRDCN ---
History of Present Illness History of present illness: HISTORY OF PRESENT ILLNESS: This is a 56-year-old female with a past medical history significant for pulmonary embolism, ventricular fibrillation, known ischemic cardiomyopathy with AICD implantation, and hypertension. Patient follows in the office with Dr. Reece but has not been seen in the office since 2017. She state she currently can not afford to come to the office at this time. We have been asked to see the patient in consultation for chest pain. Patient examined at the bedside. Patient states 2 nights ago she felt like she had some indigestion. She reports that she took some Tums and her pain went away. She states she woke up the next day and had some chest tightness that went into her back. She reports the pain was worse with coughing and also worse with deep inspiration. She reported some shortness of breath when walking to the bathroom. She currently denies chest pain or pressure. Denies shortness of breath. Vital signs are stable. * EKG reveals ventricular paced rhythm * Chest xray mild fibrotic changes left lower lobe similar to old exam. No heart failure. * Laboratory data: WBC 9.6. Hemoglobin 15.7. Platelet count 223. INR 3.1. D- dimer 0.30. Sodium 139. Potassium 3.8. BUN 12. Creatinine 0.92. Troponin negative 3. * Current home cardiac medications include warfarin 7.5 mg at night, spironolactone 25 mg at night, lisinopril 2.5 mg daily, carvedilol 6.25 mg twice a day, Lipitor 10 mg at night, amiodarone 100 mg daily * Most recent echocardiogram obtained in July 2019 revealed ejection fraction 50-55%, trace MR, and mild TR * Patient underwent Mary scan stress test in July 2021 which was negative for ischemia REVIEW OF SYSTEMS: At the time of my exam: CONSTITUTIONAL: Denies fever or chills. HEENT: Denies blurred vision, vision changes, or eye pain. Denies hemoptysis CARDIOVASCULAR: Denies chest pain. Denies orthopnea. Denies PND. Denies palpitations RESPIRATORY: Denies shortness of breath. GASTROINTESTINAL: Denies abdominal pain. Denies nausea or vomiting. HEMATOLOGIC: Denies bleeding disorders. GENITOURINARY: Denies any blood in urine. SKIN: Denies pruitis. Denies rash. PHYSICAL EXAM: VITAL SIGNS: Reviewed. GENERAL: Well-developed in no acute distress. HEENT: Head is normocephalic. Pupils are equal, round. Sclerae anicteric. Mucous membranes of the mouth are moist. Neck supple. No JVD or thyromegaly LUNGS: Respirations even and unlabored. Lungs essentially clear to auscultation bilaterally. HEART: Regular rate and rhythm. S1 and S2 heard. ABDOMEN: Soft. Nondistended. Nontender. EXTREMITIES: Normal range of motion. No clubbing or cyanosis. Peripheral pulses intact. No lower extremity edema NEUROLOGIC: Awake and alert. Oriented x 3. ASSESSMENT: Chest pain, atypical, troponin negative 3 History of PE, on warfarin History of ventricular fibrillation History of nonischemic cardiomyopathy with improved EF History of biventricular ICD implantation Hypertension PLAN: An acute coronary and has been ruled out No need to repeat echocardiogram as this was performed in 2021 Patient had a negative Mary scan in July 2021 Resume home cardiac medications Patient may be discharged home today and follow up on an outpatient basis We will sign off. Please reconsult if needed. Nurse practitioner note has been reviewed by physician. Signing provider agrees with the documented findings, assessment, and plan of care. Past Medical History Past Medical History: Chest Pain / Angina, COPD, Hyperlipidemia, Hypertension, Myocardial Infarction ([place]), Pneumonia, Pulmonary Embolus ([place]) Additional Past Medical History / Comment(s): cardiomyopathy, PE (5yrs ago), brain aneursym Last Myocardial Infarction Date:: 5 yrs ago History of Any Multi-Drug Resistant Organisms: None Reported Past Surgical History: AICD, Cholecystectomy, Heart Catheterization Additional Past Surgical History / Comment(s): AICD defibrillator placed 5 years ago Past Anesthesia/Blood Transfusion Reactions: No Reported Reaction Type of Cardiac Device: AICD Device Placement Date:: 2015 Past Psychological History: Anxiety, Depression Smoking Status: Former smoker Past Alcohol Use History: None Reported Past Drug Use History: None Reported - Past Family History Mother Family Medical History: Diabetes Mellitus, Hypertension Father Family Medical History: No Reported History Medications and Allergies Home Medications Medication Instructions Recorded Confirmed Type carvediloL [Coreg] 6.25 mg PO BID-W/MEALS #180 tab 04/08/20 09/28/21 Rx lisinopriL [Zestril] 2.5 mg PO DAILY #90 tab 04/08/20 09/28/21 Rx Spironolactone [Aldactone] 25 mg PO HS 08/15/20 09/28/21 History ALPRAZolam [Xanax] 0.5 mg PO TID PRN 06/20/21 09/28/21 History Amiodarone [Cordarone] 100 mg PO DAILY 06/20/21 09/28/21 History Atorvastatin [Lipitor] 10 mg PO HS 06/20/21 09/28/21 History Warfarin Sodium [Jantoven] 7.5 mg PO W/SUPPER 06/20/21 09/28/21 History traZODone HCL 50 mg PO HS PRN 09/28/21 09/28/21 History Allergies Allergy/AdvReac Type Severity Reaction Status Date / Time hydromorphone [From Dilaudid] AdvReac Vomiting Verified 09/28/21 16:41 Physical Exam Vitals: Vital Signs Temp Pulse Pulse Resp BP BP Pulse Ox 09/29/21 01:29 98.0 F 80 18 111/68 93 L 09/28/21 19:28 97.6 F 85 18 109/64 97 09/28/21 18:07 97.4 F L 90 16 108/69 96 09/28/21 17:00 98 F 81 12 98/60 95 09/28/21 16:00 82 17 94/65 96 09/28/21 15:03 90 18 96/68 09/28/21 15:00 86 14 83/66 97 09/28/21 14:42 91 16 106/84 97 09/28/21 14:08 98.2 F 103 H 18 134/85 98 Intake and Output 09/28/21 09/29/21 09/29/21 22:59 06:59 14:59 Other: # Voids 0 1 Weight 90.718 kg Results 09/28/21 14:25 09/28/21 14:25 Cardiac Enzymes 09/28/21 09/28/21 09/28/21 Range/Units 14:25 14:25 18:53 AST 20 (14-36) U/L Troponin I <0.012 <0.012 (0.000-0.034) ng/mL 09/28/21 Range/Units 21:52 AST (14-36) U/L Troponin I <0.012 (0.000-0.034) ng/mL Coagulation 09/28/21 09/29/21 Range/Units 14:25 05:59 PT 37.9 H 30.8 H (9.0-12.0) sec APTT 37.6 H (22.0-30.0) sec CBC 09/28/21 Range/Units 14:25 WBC 9.6 (3.8-10.6) k/uL RBC 5.18 (3.80-5.40) m/uL Hgb 15.7 (11.4-16.0) gm/dL Hct 45.7 (34.0-46.0) % Plt Count 223 (150-450) k/uL Comprehensive Metabolic Panel 09/28/21 Range/Units 14:25 Sodium 139 (137-145) mmol/L Potassium 3.8 (3.5-5.1) mmol/L Chloride 103 (98-107) mmol/L Carbon Dioxide 27 (22-30) mmol/L BUN 12 (7-17) mg/dL Creatinine 0.92 (0.52-1.04) mg/dL Glucose 96 (74-99) mg/dL Calcium 9.0 (8.4-10.2) mg/dL AST 20 (14-36) U/L ALT 17 (4-34) U/L Alkaline Phosphatase 89 (38-126) U/L Total Protein 7.7 (6.3-8.2) g/dL Albumin 4.5 (3.5-5.0) g/dL Current Medications Generic Name Dose Route Start Last Admin Trade Name Freq PRN Reason Stop Dose Admin Alprazolam 0.5 mg 09/28/21 17:04 09/28/21 20:46 Alprazolam 0.5 Mg Tab PO 0.5 mg TID PRN Administration Anxiety Amiodarone HCl 100 mg 09/29/21 09:00 Amiodarone 100 Mg Tab PO DAILY D[facility]AN Aspirin 325 mg 09/29/21 09:00 Aspirin 325 Mg Tab PO DAILY D[facility]AN Atorvastatin Calcium 10 mg 09/28/21 21:00 09/28/21 20:42 Atorvastatin 10 Mg Tab PO 10 mg HS DUNCAN Administration Carvedilol 6.25 mg 09/28/21 17:30 09/28/21 18:10 Carvedilol 6.25 Mg Tab PO Not Given BID-W/MEALS D[facility]AN Lisinopril 2.5 mg 09/29/21 09:00 Lisinopril 2.5 Mg Tab PO DAILY [facility] Methylprednisolone Sodium Succinate 60 mg 09/28/21 18:00 09/28/21 20:42 Methylprednisolone Sod Succi 125 Mg/2 Ml Vial IV 60 mg QID D[facility]AN Administration Miscellaneous Information 0 each 09/28/21 17:10 Warfarin Per Pharmacy MISCELLANE DIRECTED PRN PHARMACY DOSING WARFARIN Morphine Sulfate 2 mg 09/28/21 16:32 Morphine Sulfate 2 Mg/Ml Syringe IVP Q2H PRN Chest Pain Spironolactone 25 mg 09/28/21 21:00 09/28/21 20:42 Spironolactone 25 Mg Tab PO 25 mg HS D[facility]AN Administration Trazodone HCl 50 mg 09/28/21 17:04 Trazodone Hcl 50 Mg Tab PO HS PRN SLEEP Intake and Output 09/28/21 09/29/21 09/29/21 22:59 06:59 14:59 Other: # Voids 0 1 Weight 90.718 kg 09/28/21 14:25 09/28/21 14:25
[2021-09-29] MEDS ORDERED: WARFARIN 3 MG TAB PO ONE (18:00)
--- NOTE | 2021-09-29 21:03 | HP ---
HISTORY AND PHYSICAL CHIEF COMPLAINT: Chest pain. HISTORY OF PRESENT ILLNESS: This is another admission for this 56-year-old white female who has a history of coronary artery disease, cardiomyopathy, previous pulmonary embolism and multiple other problems. She presented to the emergency room with pain in the center of her chest, but it was not associated with any diaphoresis, shortness of breath, nausea, exertion, etc. Studies in the ER were negative. She felt it might have been GERD. REVIEW OF SYSTEMS: She has no other complaints. Past medical history, family history, and personal and social histories are otherwise noncontributory or unchanged from her recent admitting and discharge summaries. PHYSICAL EXAMINATION: Blood pressure is 128/82 with a pulse of 88 and irregularly irregular, respirations 25 and she is afebrile. In general she appears to be well developed, well nourished, in no acute distress. Skin color is normal. Skin is warm, dry. Lymph nodes are not enlarged. Head, ears, eyes, nose, mouth and throat are normal. Carotids are normal. Neck veins are not distended. Chest is clear. There are no rales. There are no rubs. Cardiac exam demonstrated what sounded like atrial fibrillation. The abdomen is slightly protuberant, soft and nontender. Extremities are normal. Neurologically she is intact. She is admitted to the hospital with: 1. Atypical chest pain. 2. Probable esophagitis. 3. History of atherosclerotic cardiomyopathy. 4. History of coronary artery disease. 5. Atrial fibrillation. 6. History of pulmonary emboli. 7. History of congestive heart failure. 8. Cardiac pacemaker. PLAN: 1. Bedrest. 2. IV fluids. 3. Serial EKGs and enzymes. 4. Consult Cardiology. MMODL / IJN: [id number] /
--- NOTE | 2021-09-29 21:12 | DS ---
DISCHARGE SUMMARY CHIEF COMPLAINT: Chest pain. HISTORY OF PRESENT ILLNESS AND PHYSICAL EXAMINATION: Details of this lady's history and physical can be found in the initial workup. LABORATORY STUDIES: While she was in the hospital she had laboratory studies, details of which can be found in the laboratory section of her chart. COURSE IN THE HOSPITAL: After admission she was placed on bedrest, started on intravenous fluids, and she had serial EKGs and enzymes. They were normal. She was seen by Cardiology. It was felt she could be discharged home on her usual activity, medication and diet, and we will follow her up in the office. FINAL DIAGNOSIS: 1. Atypical chest pain. 2. Esophagitis. 3. Coronary artery disease. 4. Atherosclerotic cardiomyopathy. 5. Atrial fibrillation. 6. Status post pulmonary embolism. OPERATIONS: None. CONSULTATION: Cardiology. She is improved. MMODL / IJN: [id number] /
== END 2021-09-29 15:29 | disposition home or self-care (01) ==
LOC: EC 14:05 → 6NMEDSUR 16:33
PROVIDERS: ADMIT Family Medicine; ATTEND Family Medicine
DX: R07.89 Other chest pain (principal); K20.90 Esophagitis, unspecified without bleeding; I25.10 Atherosclerotic heart disease of native coronary artery without angina pectoris; I48.91 Unspecified atrial fibrillation; E78.5 Hyperlipidemia, unspecified; I11.0 Hypertensive heart disease with heart failure; I25.5 Ischemic cardiomyopathy; I42.8 Other cardiomyopathies; I49.01 Ventricular fibrillation; Z86.74 Personal history of sudden cardiac arrest; J44.9 Chronic obstructive pulmonary disease, unspecified; I25.2 Old myocardial infarction; F41.9 Anxiety disorder, unspecified; F32.A Depression, unspecified; Z79.01 Long term (current) use of anticoagulants; Z79.899 Other long term (current) drug therapy; Z88.5 Allergy status to narcotic agent; Z90.49 Acquired absence of other specified parts of digestive tract; Z87.01 Personal history of pneumonia (recurrent); Z86.711 Personal history of pulmonary embolism; Z86.79 Personal history of other diseases of the circulatory system; Z87.891 Personal history of nicotine dependence; Z95.810 Presence of automatic (implantable) cardiac defibrillator; Z83.3 Family history of diabetes mellitus; Z82.49 Family history of ischemic heart disease and other diseases of the circulatory system
CPT/HCPCS: 99285; 96376 ×2; 96374; 96375; 36415; 93005; 85379; 83880; 80061; 80053; 83735; 84484; 85025; 85610 ×2; 85730; 71046; G0378 ×2; J2060; J2270; J2930 ×2; J2405

== ENCOUNTER 2021-11-05 00:32 | Emergency (ER) | payer MEDICARE ==
[2021-11-05 00:38] VITALS: TEMP 98.4
[2021-11-05] MEDS ORDERED: METOCLOPRAMIDE 5 MG/ML 2 ML VIAL IVP STA (01:07)
[2021-11-05] MEDS ORDERED: KETOROLAC 15 MG/ML 1 ML VIAL IVP STA (01:07)
[2021-11-05] MEDS ORDERED: SODIUM CHLORIDE 0.9% 500 ML 500 ML IV STA (01:07)
[2021-11-05] MEDS ORDERED: methylPREDNISolone SOD SUCCI 125 MG/2 ML VIAL IV STA (01:11)
--- NOTE | 2021-11-05 02:48 | ED ---
Headache HPI - General Chief Complaint: Headache Stated Complaint: Migraine Time Seen by Provider: 11/05/21 00:52 Mode of arrival: ambulatory Limitations: no limitations - History of Present Illness Initial Comments: This patient is 56-year-old woman with history of headaches who presents with what she is referring to as migraine. She states this is been going on for days up to about 2 weeks now. She states she is nauseated and not able to take much by mouth. She states that her home medications are not working. She states that it is not the worst headache of life. She did have imaging related to this headache. She has not had neurologic symptoms. No change in vision, hearing, speech. No weakness or numbness. MD Complaint: "migraine" -: days(s) Onset Description: gradual Location: frontal Quality: aching Consistency: constant Improves With: nothing Worsens With: none Context: occurred at rest Treatments Prior to Arrival: none - Related Data Home Medications Medication Instructions Recorded Confirmed Spironolactone [Aldactone] 25 mg PO HS 08/15/20 09/28/21 ALPRAZolam [Xanax] 0.5 mg PO TID PRN 06/20/21 09/28/21 Amiodarone [Cordarone] 100 mg PO DAILY 06/20/21 09/28/21 Atorvastatin [Lipitor] 10 mg PO HS 06/20/21 09/28/21 Warfarin Sodium [Jantoven] 7.5 mg PO W/SUPPER 06/20/21 09/28/21 traZODone HCL 50 mg PO HS PRN 09/28/21 09/28/21 Previous Rx's Medication Instructions Recorded carvediloL [Coreg] 6.25 mg PO BID-W/MEALS #180 tab 04/08/20 lisinopriL [Zestril] 2.5 mg PO DAILY #90 tab 04/08/20 Allergies Allergy/AdvReac Type Severity Reaction Status Date / Time hydromorphone [From Dilaudid] AdvReac Vomiting Verified 11/05/21 00:37 Review of Systems ROS Statement: Those systems with pertinent positive or pertinent negative responses have been documented in the HPI. ROS Other: All systems not noted in ROS Statement are negative. Constitutional: Denies: fever, chills, weakness Eyes: Denies: vision change Respiratory: Denies: cough, dyspnea Cardiovascular: Denies: chest pain, palpitations Gastrointestinal: Reports: nausea. Denies: abdominal pain, vomiting Musculoskeletal: Denies: back pain Skin: Denies: rash Neurological: Reports: headache. Denies: weakness, numbness, paresthesias Past Medical History Past Medical History: Chest Pain / Angina, COPD, Hyperlipidemia, Hypertension, Myocardial Infarction ([place]), Pneumonia, Pulmonary Embolus ([place]) Additional Past Medical History / Comment(s): cardiomyopathy, PE (5yrs ago), brain aneursym Last Myocardial Infarction Date:: 5 yrs ago History of Any Multi-Drug Resistant Organisms: None Reported Past Surgical History: AICD, Cholecystectomy, Heart Catheterization Additional Past Surgical History / Comment(s): AICD defibrillator placed 5 years ago Past Anesthesia/Blood Transfusion Reactions: No Reported Reaction Type of Cardiac Device: AICD Device Placement Date:: 2015 Past Psychological History: Anxiety, Depression Smoking Status: Former smoker Past Alcohol Use History: None Reported Past Drug Use History: None Reported - Past Family History Mother Family Medical History: Diabetes Mellitus, Hypertension Father Family Medical History: No Reported History General Exam Limitations: no limitations General appearance: alert, in no apparent distress Head exam: Present: atraumatic, normocephalic Eye exam: Present: normal appearance. Absent: scleral icterus, conjunctival injection ENT exam: Present: normal oropharynx Neck exam: Present: normal inspection, full ROM. Absent: tenderness, meningismus Respiratory exam: Present: normal lung sounds bilaterally. Absent: respiratory distress, wheezes, rales, rhonchi, stridor Cardiovascular Exam: Present: regular rate, normal rhythm, normal heart sounds. Absent: systolic murmur, diastolic murmur, rubs, gallop GI/Abdominal exam: Present: soft. Absent: distended, tenderness, guarding, rebound, rigid, mass Extremities exam: Present: normal inspection, normal capillary refill. Absent: pedal edema, calf tenderness Back exam: Present: normal inspection Neurological exam: Present: alert, oriented X3, CN II-XII intact. Absent: motor sensory deficit Skin exam: Present: warm, dry, intact, normal color. Absent: rash Course Vital Signs 11/05/21 00:35 Temperature 98.4 F Pulse Rate 101 H Respiratory 20 Rate Blood Pressure 168/91 O2 Sat by Pulse 95 Oximetry Medical Decision Making - Medical Decision Making Patient's 56-year-old woman with history of migraine headaches, , she presents with worsening headache tonight. She has had some relief from medications. Exam does reveal abnormality of the tympanic membrane I recommend patient follow-up with ENT to have further evaluation and treatment. Discussed this wi th patient as well. Disposition Clinical Impression: Migraine headache Disposition: HOME SELF-CARE Condition: Good Instructions (If sedation given, give patient instructions): Acute Headache (ED) Is patient prescribed a controlled substance at d/c from ED?: No Referrals: Daniel Mosqueda MD [Primary Care Provider] - 1-2 days Chilango Moreno MD [STAFF PHYSICIAN] - 1-2 days
[2021-11-05 03:16] VITALS: BP 136/83; PULSE 82; RESP 18
== END 2021-11-05 03:16 | disposition home or self-care (01) ==
LOC: EC 00:32
DX: G43.909 Migraine, unspecified, not intractable, without status migrainosus (principal); I10 Essential (primary) hypertension; I25.2 Old myocardial infarction; J44.9 Chronic obstructive pulmonary disease, unspecified; E78.5 Hyperlipidemia, unspecified; F32.A Depression, unspecified; F41.9 Anxiety disorder, unspecified; Z87.891 Personal history of nicotine dependence; Z86.711 Personal history of pulmonary embolism; Z79.01 Long term (current) use of anticoagulants; Z79.899 Other long term (current) drug therapy
CPT/HCPCS: 96361; 96374; 96375; 99283

== ENCOUNTER 2021-12-19 16:31 | Emergency (ER) | payer MEDICARE ==
[2021-12-19] MEDS ORDERED: IBUPROFEN 600 MG TAB PO STA (16:56)
--- NOTE | 2021-12-19 17:03 | ED ---
General Adult HPI - General Chief complaint: Shortness of Breath Stated complaint: Cough/Congestion Time Seen by Provider: 12/19/21 16:40 Source: patient, RN notes reviewed, old records reviewed Mode of arrival: ambulatory Limitations: no limitations - History of Present Illness Initial comments: This is a 56-year-old female presents emergency Department stating for the last 2 or 3 days she has had a dry cough and had body aches. Patient states she f eels hot sometimes it definitely gets the chills. Patient states she's had cold and also had the COVID vaccine but did not get any blisters. Patient denies any chest pain. Patient states she does have some shortness of breath but only with exertion. patient denies abdominal pain patient states she was a little nauseated earlier but took a nausea pill at home. Patient denies any diarrhea. Patient denies any loss of taste or smell. Patient denies headache patient denies numbness weakness. - Related Data Home Medications Medication Instructions Recorded Confirmed Spironolactone [Aldactone] 25 mg PO HS 08/15/20 09/28/21 ALPRAZolam [Xanax] 0.5 mg PO TID PRN 06/20/21 09/28/21 Amiodarone [Cordarone] 100 mg PO DAILY 06/20/21 09/28/21 Atorvastatin [Lipitor] 10 mg PO HS 06/20/21 09/28/21 Warfarin Sodium [Jantoven] 7.5 mg PO W/SUPPER 06/20/21 09/28/21 traZODone HCL 50 mg PO HS PRN 09/28/21 09/28/21 Previous Rx's Medication Instructions Recorded carvediloL [Coreg] 6.25 mg PO BID-W/MEALS #180 tab 04/08/20 lisinopriL [Zestril] 2.5 mg PO DAILY #90 tab 04/08/20 Albuterol Inhaler [Ventolin Hfa 2 puff INHALATION RT-QID #18 gm 12/19/21 Inhaler] predniSONE [Deltasone] 40 mg PO DAILY #8 tab 12/19/21 Allergies Allergy/AdvReac Type Severity Reaction Status Date / Time hydromorphone [From Dilaudid] AdvReac Vomiting Verified 11/05/21 00:37 Review of Systems ROS Statement: Those systems with pertinent positive or pertinent negative responses have been documented in the HPI. ROS Other: All systems not noted in ROS Statement are negative. Past Medical History Past Medical History: Chest Pain / Angina, COPD, Hyperlipidemia, Hypertension, Myocardial Infarction ([place]), Pneumonia, Pulmonary Embolus ([place]) Additional Past Medical History / Comment(s): cardiomyopathy, PE (5yrs ago), brain aneursym Last Myocardial Infarction Date:: 5 yrs ago History of Any Multi-Drug Resistant Organisms: None Reported Past Surgical History: AICD, Cholecystectomy, Heart Catheterization Additional Past Surgical History / Comment(s): AICD defibrillator placed 5 years ago Past Anesthesia/Blood Transfusion Reactions: No Reported Reaction Type of Cardiac Device: AICD Device Placement Date:: 2015 Past Psychological History: Anxiety, Depression Smoking Status: Former smoker Past Alcohol Use History: None Reported Past Drug Use History: None Reported - Past Family History Mother Family Medical History: Diabetes Mellitus, Hypertension Father Family Medical History: No Reported History General Exam - General Exam Comments Initial Comments: GENERAL: Patient is well-developed and well-nourished. Patient is nontoxic and well- hydrated and is in mild distress. ENT: Neck is soft and supple. No significant lymphadenopathy is noted. Oropharynx is clear. Moist mucous membranes. Neck has full range of motion without elici ting any pain. EYES: The sclera were anicteric and conjunctiva were pink and moist. Extraocular m ovements were intact and pupils were equal round and reactive to light. Eyelids were unremarkable. PULMONARY: Unlabored respirations. Good breath sounds bilaterally. No audible rales rhonchi or wheezing was noted. CARDIOVASCULAR: There is a regular rate and rhythm without any murmurs gallops or rubs. ABDOMEN: Soft and nontender with normal bowel sounds. SKIN: Skin is clear with no lesions or rashes and otherwise unremarkable. NEUROLOGIC: Patient is alert and oriented x3. Cranial nerves II through XII are grossly intact. Motor and sensory are also intact. Normal speech, volume and content. Symmetrical smile. MUSCULOSKELETAL: Normal extremities with adequate strength and full range of motion. No lower extremity swelling or edema. No calf tenderness. LYMPHATICS: No significant lymphadenopathy is noted PSYCHIATRIC: Normal psychiatric evaluation. Limitations: no limitations Course Vital Signs 12/19/21 12/19/21 12/19/21 16:40 16:52 20:03 Temperature 98.2 F 99.5 F 98.6 F Pulse Rate 82 77 Respiratory 18 20 Rate Blood Pressure 120/80 109/71 O2 Sat by Pulse 93 L 94 L Oximetry 12/19/21 12/19/21 12/19/21 20:04 20:29 20:40 Temperature Pulse Rate 70 71 Respiratory 28 H Rate Blood Pressure O2 Sat by Pulse 91 L Oximetry Medical Decision Making - Medical Decision Making EKG shows a paced rhythm at 76 bpm IA interval is 97 QRS is 181 Q-T intervals 10/20/2019 QTC is 462. Chest x-ray showed no acute abnormality. I will back into the room to reevaluate the patient she was oxygenating at 98%. Patient did have some extra wheezing so I give the patient breathing treatment after which she stated she felt considerably better. I started her on a steroid and I will send her home with steroid and albuterol inhalers. - Lab Data Result diagrams: 12/19/21 17:35 12/19/21 17:35 Lab Results 12/19/21 12/19/21 12/19/21 Range/Units 17:35 17:35 17:35 WBC 6.4 (3.8-10.6) k/uL RBC 4.80 (3.80-5.40) m/uL Hgb 14.2 (11.4-16.0) gm/dL Hct 42.0 (34.0-46.0) % MCV 87.4 (80.0-100.0) fL MCH 29.6 (25.0-35.0) pg MCHC 33.9 (31.0-37.0) g/dL RDW 16.3 H (11.5-15.5) % Plt Count 189 (150-450) k/uL MPV 9.7 Neutrophils % 63 % Lymphocytes % 26 % Monocytes % 5 % Eosinophils % 3 % Basophils % 1 % Neutrophils # 4.1 (1.3-7.7) k/uL Lymphocytes # 1.7 (1.0-4.8) k/uL Monocytes # 0.4 (0-1.0) k/uL Eosinophils # 0.2 (0-0.7) k/uL Basophils # 0.0 (0-0.2) k/uL Poikilocytosis Slight Anisocytosis Slight PT 20.5 H (9.0-12.0) sec INR 2.0 H (<1.2) APTT 30.3 H (22.0-30.0) sec D-Dimer (<0.60) mg/L FEU Sodium 137 (137-145) mmol/L Potassium 4.5 (3.5-5.1) mmol/L Chloride 108 H (98-107) mmol/L Carbon Dioxide 24 (22-30) mmol/L Anion Gap 5 mmol/L BUN 13 (7-17) mg/dL Creatinine 0.83 (0.52-1.04) mg/dL Est GFR (CKD-EPI)AfAm >90 (>60 ml/min/1.73 sqM) Est GFR (CKD-EPI)NonAf 79 (>60 ml/min/1.73 sqM) Glucose 91 (74-99) mg/dL Plasma Lactic Acid Carlos Eduardo (0.7-2.0) mmol/L Calcium 8.8 (8.4-10.2) mg/dL Total Bilirubin 0.7 (0.2-1.3) mg/dL AST 17 (14-36) U/L ALT 12 (4-34) U/L Alkaline Phosphatase 88 (38-126) U/L Total Protein 6.9 (6.3-8.2) g/dL Albumin 4.3 (3.5-5.0) g/dL Urine Color Urine Appearance (Clear) Urine pH (5.0-8.0) Ur Specific [place] (1.001-1.035) Urine Protein (Negative) Urine Glucose (UA) (Negative) Urine Ketones (Negative) Urine Blood (Negative) Urine Nitrite (Negative) Urine Bilirubin (Negative) Urine Urobilinogen (<2.0) mg/dL Ur Leukocyte Esterase (Negative) Urine RBC (0-5) /hpf Urine WBC (0-5) /hpf Ur Squamous Epith Cells (0-4) /hpf Urine Bacteria (None) /hpf Urine Mucus (None) /hpf Coronavirus (PCR) (Not Detectd) Influenza Type A RNA (Not Detectd) Influenza Type B (PCR) (Not Detectd) 12/19/21 12/19/21 12/19/21 Range/Units 17:35 17:35 17:41 WBC (3.8-10.6) k/uL RBC (3.80-5.40) m/uL Hgb (11.4-16.0) gm/dL Hct (34.0-46.0) % MCV (80.0-100.0) fL MCH (25.0-35.0) pg MCHC (31.0-37.0) g/dL RDW (11.5-15.5) % Plt Count (150-450) k/uL MPV Neutrophils % % Lymphocytes % % Monocytes % % Eosinophils % % Basophils % % Neutrophils # (1.3-7.7) k/uL Lymphocytes # (1.0-4.8) k/uL Monocytes # (0-1.0) k/uL Eosinophils # (0-0.7) k/uL Basophils # (0-0.2) k/uL Poikilocytosis Anisocytosis PT (9.0-12.0) sec INR (<1.2) APTT (22.0-30.0) sec D-Dimer 0.21 (<0.60) mg/L FEU Sodium (137-145) mmol/L Potassium (3.5-5.1) mmol/L Chloride (98-107) mmol/L Carbon Dioxide (22-30) mmol/L Anion Gap mmol/L BUN (7-17) mg/dL Creatinine (0.52-1.04) mg/dL Est GFR (CKD-EPI)AfAm (>60 ml/min/1.73 sqM) Est GFR (CKD-EPI)NonAf (>60 ml/min/1.73 sqM) Glucose (74-99) mg/dL Plasma Lactic Acid Carlos Eduardo 1.0 (0.7-2.0) mmol/L Calcium (8.4-10.2) mg/dL Total Bilirubin (0.2-1.3) mg/dL AST (14-36) U/L ALT (4-34) U/L Alkaline Phosphatase (38-126) U/L Total Protein (6.3-8.2) g/dL Albumin (3.5-5.0) g/dL Urine Color Urine Appearance (Clear) Urine pH (5.0-8.0) Ur Specific [place] (1.001-1.035) Urine Protein (Negative) Urine Glucose (UA) (Negative) Urine Ketones (Negative) Urine Blood (Negative) Urine Nitrite (Negative) Urine Bilirubin (Negative) Urine Urobilinogen (<2.0) mg/dL Ur Leukocyte Esterase (Negative) Urine RBC (0-5) /hpf Urine WBC (0-5) /hpf Ur Squamous Epith Cells (0-4) /hpf Urine Bacteria (None) /hpf Urine Mucus (None) /hpf Coronavirus (PCR) Not Detected (Not Detectd) Influenza Type A RNA (Not Detectd) Influenza Type B (PCR) (Not Detectd) 12/19/21 12/19/21 Range/Units 17:41 18:39 WBC (3.8-10.6) k/uL RBC (3.80-5.40) m/uL Hgb (11.4-16.0) gm/dL Hct (34.0-46.0) % MCV (80.0-100.0) fL MCH (25.0-35.0) pg MCHC (31.0-37.0) g/dL RDW (11.5-15.5) % Plt Count (150-450) k/uL MPV Neutrophils % % Lymphocytes % % Monocytes % % Eosinophils % % Basophils % % Neutrophils # (1.3-7.7) k/uL Lymphocytes # (1.0-4.8) k/uL Monocytes # (0-1.0) k/uL Eosinophils # (0-0.7) k/uL Basophils # (0-0.2) k/uL Poikilocytosis Anisocytosis PT (9.0-12.0) sec INR (<1.2) APTT (22.0-30.0) sec D-Dimer (<0.60) mg/L FEU Sodium (137-145) mmol/L Potassium (3.5-5.1) mmol/L Chloride (98-107) mmol/L Carbon Dioxide (22-30) mmol/L Anion Gap mmol/L BUN (7-17) mg/dL Creatinine (0.52-1.04) mg/dL Est GFR (CKD-EPI)AfAm (>60 ml/min/1.73 sqM) Est GFR (CKD-EPI)NonAf (>60 ml/min/1.73 sqM) Glucose (74-99) mg/dL Plasma Lactic Acid Carlos Eduardo (0.7-2.0) mmol/L Calcium (8.4-10.2) mg/dL Total Bilirubin (0.2-1.3) mg/dL AST (14-36) U/L ALT (4-34) U/L Alkaline Phosphatase (38-126) U/L Total Protein (6.3-8.2) g/dL Albumin (3.5-5.0) g/dL Urine Color Yellow Urine Appearance Clear (Clear) Urine pH 5.5 (5.0-8.0) Ur Specific [place] 1.025 (1.001-1.035) Urine Protein Negative (Negative) Urine Glucose (UA) Negative (Negative) Urine Ketones Negative (Negative) Urine Blood Negative (Negative) Urine Nitrite Negative (Negative) Urine Bilirubin Negative (Negative) Urine Urobilinogen 2.0 (<2.0) mg/dL Ur Leukocyte Esterase Small H (Negative) Urine RBC 1 (0-5) /hpf Urine WBC 3 (0-5) /hpf Ur Squamous Epith Cells 1 (0-4) /hpf Urine Bacteria Rare H (None) /hpf Urine Mucus Rare H (None) /hpf Coronavirus (PCR) (Not Detectd) Influenza Type A RNA Not Detected (Not Detectd) Influenza Type B (PCR) Not Detected (Not Detectd) Disposition Clinical Impression: Upper respiratory infection, Acute bronchospasm Disposition: HOME SELF-CARE Instructions (If sedation given, give patient instructions): Upper Respiratory Infection (ED) Prescriptions: predniSONE [Deltasone] 40 mg PO DAILY #8 tab Albuterol Inhaler [Ventolin Hfa Inhaler] 2 puff INHALATION RT-QID #18 gm Is patient prescribed a controlled substance at d/c from ED?: No Referrals: Daniel Mosqueda MD [Primary Care Provider] - 1-2 days Time of Disposition: 19:50
--- NOTE | 2021-12-19 17:33 | XR ---
EXAMINATION TYPE: XR chest 2V DATE OF EXAM: 12/19/2021 5:12 PM COMPARISON: Multiple radiographs, with the most recent on 09/28/2021 TECHNIQUE: XR chest 2V Frontal and lateral views of the chest. CLINICAL INDICATION:Female, 56 years old with history of Fever; FINDINGS: Lungs/Pleura: There is flattening of the diaphragm with increased lucency of the lungs. No evidence o f pneumothorax, pleural effusion or focal consolidation. Pulmonary vascularity: Unremarkable. Heart/mediastinum: Cardiomediastinal silhouette is unremarkable. Three lead cardiac conduction device overlying the left hemithorax with lead tips projecting over the right ventricle, right atrium and c oronary sinus. Musculoskeletal: No acute osseous pathology. IMPRESSION: 1. No acute cardiopulmonary disease process. 2. COPD changes.
[2021-12-19] MEDS: SODIUM CHLORIDE 0.9% 500 ML 500 ML IV SCH (17:37)
[2021-12-19 18:03] LABS: Anisocytosis Slight; Basophils % (A) 1 %; Eosinophils # (A) 0.2 k/uL (0-0.7); Eosinophils % (A) 3 %; HGB 14.2 gm/dL (11.4-16.0); Lymphocytes # (A) 1.7 k/uL (1.0-4.8); Lymphocytes % (A) 26 %; MCH 29.6 pg (25.0-35.0); MCHC 33.9 g/dL (31.0-37.0); MCV 87.4 fL (80.0-100.0); Mean Platelet Volume 9.7; Monocytes # (A) 0.4 k/uL (0-1.0); Monocytes % (A) 5 %; Neutrophils # (A) 4.1 k/uL (1.3-7.7); Neutrophils % (A) 63 %; Platelet Count 189 k/uL (150-450); Poikilocytosis Slight; RDW 16.3 % (11.5-15.5); WBC 6.4 k/uL (3.8-10.6)
[2021-12-19 18:05] LABS: ALT 12 U/L (4-34); AST 17 U/L (14-36); African American GFR (CKD) >90 (>60 ml/min/1.73 sqM); Albumin 4.3 g/dL (3.5-5.0); Alkaline Phosphatase 88 U/L (38-126); Anion Gap 5 mmol/L; Blood Urea Nitrogen 13 mg/dL (7-17); Calcium 8.8 mg/dL (8.4-10.2); Carbon Dioxide 24 mmol/L (22-30); Chloride 108 mmol/L (98-107); Glucose 91 mg/dL (74-99); Non-African American GFR(CKD) 79 (>60 ml/min/1.73 sqM); Potassium 4.5 mmol/L (3.5-5.1); Sodium 137 mmol/L (137-145); Total Bilirubin 0.7 mg/dL (0.2-1.3); Total Protein 6.9 g/dL (6.3-8.2)
[2021-12-19 18:09] LABS: Partial Thromboplastin Time 30.3 sec (22.0-30.0); Prothrombin Time 20.5 sec (9.0-12.0)
[2021-12-19 19:27] LABS: Appearance,Urine Clear (Clear); Bacteria,Urine Rare /hpf; Bilirubin,Urine Negative (Negative); Blood,Urine Negative (Negative); Color,Urine Yellow; Glucose,Urine (UA) Negative (Negative); Ketones,Urine Negative (Negative); Leukocyte Esterase,Urine Small (Negative); Mucus,Urine Rare /hpf; Nitrite,Urine Negative (Negative); PH, Urine 5.5 (5.0-8.0); Protein,Urine Negative (Negative); RBC,Urine 1 /hpf (0-5); Specific Gravity,Urine 1.025 (1.001-1.035); Squamous Epithelial Cell,Urine 1 /hpf (0-4); WBC,Urine 3 /hpf (0-5)
[2021-12-19 20:04] VITALS: BP 109/71; TEMP 98.6
[2021-12-19 20:05] VITALS: RESP 28
[2021-12-19] MEDS ORDERED: IPRATROPIUM-ALBUTEROL 3 ML NEB INHALATION STA (20:23)
[2021-12-19] MEDS ORDERED: methylPREDNISolone SOD SUCCI 125 MG/2 ML VIAL IV STA (20:23)
[2021-12-19 20:41] VITALS: PULSE 71
== END 2021-12-19 21:09 | disposition home or self-care (01) ==
LOC: EC 16:31
DX: J06.9 Acute upper respiratory infection, unspecified (principal); J98.01 Acute bronchospasm; E78.5 Hyperlipidemia, unspecified; I10 Essential (primary) hypertension; I25.2 Old myocardial infarction; I42.9 Cardiomyopathy, unspecified; J44.9 Chronic obstructive pulmonary disease, unspecified; Z87.891 Personal history of nicotine dependence; Z88.5 Allergy status to narcotic agent; Z20.822 Contact with and (suspected) exposure to COVID-19; Z79.01 Long term (current) use of anticoagulants; Z79.899 Other long term (current) drug therapy
CPT/HCPCS: 36415; 94640; 93005; 85379; 80053; 83605; 85025; 85610; 85730; 81001; 87040; 87502; 87635; 71046; 99285; 96374; 96361; J2930

== ENCOUNTER 2022-04-22 12:17 | Emergency (ER) | payer MEDICARE ==
[2022-04-22 12:45] VITALS: TEMP 98.6
[2022-04-22] MEDS ORDERED: methylPREDNISolone SOD SUCCI 125 MG/2 ML VIAL IV STA (12:52)
[2022-04-22] MEDS ORDERED: IPRATROPIUM-ALBUTEROL 3 ML NEB INHALATION STA (12:52)
--- NOTE | 2022-04-22 13:02 | ED ---
SOB HPI - General Chief Complaint: Shortness of Breath Stated Complaint: sob Time Seen by Provider: 04/22/22 12:49 Source: patient, RN notes reviewed Mode of arrival: ambulatory Limitations: no limitations - History of Present Illness Initial Comments: This is a 56-year-old female who presents to the emergency department for shortness of breath. She has a past medical history of COPD, PE, [place] and cardiomyopathy. States that 5-6 days ago, she developed the shortness of breath with a productive cough and congestion. She has been using her albuterol b reathing treatments with no relief. Denies any fevers, chills, chest pain, nausea, vomiting, or sick contacts. She does not wear oxygen at home. Denies any fevers, chills, sore throat, chest pain, palpitations, abdominal pain, nausea, vomiting, diarrhea, back pain, or headaches. MD Complaint: shortness of breath, cough Onset/Timin -: days(s) Known History Of: COPD Treatments Prior to Arrival: bronchodilator - Related Data Home Medications Medication Instructions Recorded Confirmed Spironolactone [Aldactone] 25 mg PO HS 08/15/20 09/28/21 ALPRAZolam [Xanax] 0.5 mg PO TID PRN 06/20/21 09/28/21 Amiodarone [Cordarone] 100 mg PO DAILY 06/20/21 09/28/21 Atorvastatin [Lipitor] 10 mg PO HS 06/20/21 09/28/21 Warfarin Sodium [Jantoven] 7.5 mg PO W/SUPPER 06/20/21 09/28/21 traZODone HCL 50 mg PO HS PRN 09/28/21 09/28/21 Previous Rx's Medication Instructions Recorded carvediloL [Coreg] 6.25 mg PO BID-W/MEALS #180 tab 04/08/20 lisinopriL [Zestril] 2.5 mg PO DAILY #90 tab 04/08/20 Albuterol Inhaler [Ventolin Hfa 2 puff INHALATION RT-QID #18 gm 12/19/21 Inhaler] predniSONE [Deltasone] 40 mg PO DAILY #8 tab 12/19/21 Albuterol Sulfate [Albuterol 1 puff PO Q4-6H #8.5 gm 04/22/22 Sulfate Hfa] Doxycycline [Vibramycin] 100 mg PO BID 7 Days #14 capsule 04/22/22 predniSONE 50 mg PO QAM 5 Days #5 tablet 04/22/22 Allergies Allergy/AdvReac Type Severity Reaction Status Date / Time hydromorphone [From Dilaudid] AdvReac Vomiting Verified 04/22/22 12:45 Review of Systems ROS Statement: Those systems with pertinent positive or pertinent negative responses have been documented in the HPI. ROS Other: All systems not noted in ROS Statement are negative. Past Medical History Past Medical History: Chest Pain / Angina, COPD, Hyperlipidemia, Hypertension, Myocardial Infarction ([place]), Pneumonia, Pulmonary Embolus ([place]) Additional Past Medical History / Comment(s): cardiomyopathy, PE (5yrs ago), brain aneursym Last Myocardial Infarction Date:: 5 yrs ago History of Any Multi-Drug Resistant Organisms: None Reported Past Surgical History: AICD, Cholecystectomy, Heart Catheterization Additional Past Surgical History / Comment(s): AICD defibrillator placed 5 years ago Past Anesthesia/Blood Transfusion Reactions: No Reported Reaction Type of Cardiac Device: AICD Device Placement Date:: 2015 Past Psychological History: Anxiety, Depression Smoking Status: Former smoker Past Alcohol Use History: None Reported Past Drug Use History: None Reported - Past Family History Mother Family Medical History: Diabetes Mellitus, Hypertension Father Family Medical History: No Reported History General Exam Limitations: no limitations General appearance: alert, in no apparent distress Head exam: Present: atraumatic, normocephalic, normal inspection Respiratory exam: Present: wheezes, decreased breath sounds, prolonged expiratory Cardiovascular Exam: Present: regular rate, normal rhythm, normal heart sounds. Absent: systolic murmur, diastolic murmur, rubs, gallop, clicks Neurological exam: Present: alert, oriented X3, CN II-XII intact Psychiatric exam: Present: normal affect, normal mood Skin exam: Present: warm, dry, intact, normal color. Absent: rash Course Vital Signs 04/22/22 04/22/22 04/22/22 12:43 12:58 13:49 Temperature 98.6 F Pulse Rate 88 75 71 Respiratory 24 20 18 Rate Blood Pressure 133/88 174/105 O2 Sat by Pulse 93 L 93 L Oximetry 04/22/22 13:57 Temperature Pulse Rate 77 Respiratory 18 Rate Blood Pressure O2 Sat by Pulse Oximetry Medical Decision Making - Medical Decision Making This is a 56-year-old female who presents to the emergency department for shortness of breath. Lab work was nonactionable with no leukocytosis and a negative d-dimer and troponin. COVID and influenza testing were negative. Chest x-ray reveals no acute cardiopulmonary process. In the examination room, the patient states that she started feeling lightheaded, jittery, and then felt a hong of warmth come over her. States that she felt very anxious and thought she was having a panic attack. This started to slowly subside. She was subsequently given 0.5 mg of Ativan and her symptoms resolved. Patient was treated with a DuoNeb and Solu-Medrol. She reported improvement with DuoNeb treatment. Patient's oxygen saturation had increased to approximately 95%. Given that the patient's lab work has not revealed any acute findings and her symptoms have improved, this is most likely related to a viral syndrome versus COPD exacerbation. Patient is comfortable with discharge home. Prescription for 7 day course of doxycycline and 5 day course of prednisone provided. She was also given a refill on the albuterol inhaler. She is instructed to continue using the albuterol inhaler or nebulizer every 4-6 hours as needed for wheezing or shortness of breath. Return precautions reviewed in depth, the patient is instructed to return to the emergency department with any new, worsening, or concerning symptoms. Patient verbalized understanding. This case was discussed in detail with the attending ED physician. Presentation, findings, and treatment plan discussed in detail as well. - Lab Data Result diagrams: 04/22/22 13:01 04/22/22 13:01 Lab Results 04/22/22 04/22/22 04/22/22 Range/Units 13: 13: 13: WBC 8.1 (3.8-10.6) k/uL RBC 5.14 (3.80-5.40) m/uL Hgb 15.0 (11.4-16.0) gm/dL Hct 43.9 (34.0-46.0) % MCV 85.5 (80.0-100.0) fL MCH 29.1 (25.0-35.0) pg MCHC 34.1 (31.0-37.0) g/dL RDW 15.3 (11.5-15.5) % Plt Count 188 (150-450) k/uL MPV 9.3 Neutrophils % 61 % Lymphocytes % 30 % Monocytes % 5 % Eosinophils % 3 % Basophils % 1 % Neutrophils # 4.9 (1.3-7.7) k/uL Lymphocytes # 2.4 (1.0-4.8) k/uL Monocytes # 0.4 (0-1.0) k/uL Eosinophils # 0.3 (0-0.7) k/uL Basophils # 0.0 (0-0.2) k/uL Poikilocytosis Slight PT 17.2 H (9.0-12.0) sec INR 1.7 H (<1.2) APTT 27.8 (22.0-30.0) sec D-Dimer 0.22 (<0.60) mg/L FEU Sodium 142 (137-145) mmol/L Potassium 4.5 (3.5-5.1) mmol/L Chloride 100 (98-107) mmol/L Carbon Dioxide 32 H (22-30) mmol/L Anion Gap 10 mmol/L BUN 12 (7-17) mg/dL Creatinine 0.93 (0.52-1.04) mg/dL Est GFR (CKD-EPI)AfAm 80 (>60 ml/min/1.73 sqM) Est GFR (CKD-EPI)NonAf 69 (>60 ml/min/1.73 sqM) Glucose 106 H (74-99) mg/dL Calcium 9.6 (8.4-10.2) mg/dL Total Bilirubin 0.9 (0.2-1.3) mg/dL AST 17 (14-36) U/L ALT 17 (4-34) U/L Alkaline Phosphatase 97 (38-126) U/L Troponin I (0.000-0.034) ng/mL NT-Pro-B Natriuret Pep pg/mL Total Protein 7.2 (6.3-8.2) g/dL Albumin 4.6 (3.5-5.0) g/dL Coronavirus (PCR) (Not Detectd) Influenza Type A RNA (Not Detectd) Influenza Type B (PCR) (Not Detectd) 04/22/22 04/22/22 04/22/22 Range/Units 13:01 13:01 13:08 WBC (3.8-10.6) k/uL RBC (3.80-5.40) m/uL Hgb (11.4-16.0) gm/dL Hct (34.0-46.0) % MCV (80.0-100.0) fL MCH (25.0-35.0) pg MCHC (31.0-37.0) g/dL RDW (11.5-15.5) % Plt Count (150-450) k/uL MPV Neutrophils % % Lymphocytes % % Monocytes % % Eosinophils % % Basophils % % Neutrophils # (1.3-7.7) k/uL Lymphocytes # (1.0-4.8) k/uL Monocytes # (0-1.0) k/uL Eosinophils # (0-0.7) k/uL Basophils # (0-0.2) k/uL Poikilocytosis PT (9.0-12.0) sec INR (<1.2) APTT (22.0-30.0) sec D-Dimer (<0.60) mg/L FEU Sodium (137-145) mmol/L Potassium (3.5-5.1) mmol/L Chloride (98-107) mmol/L Carbon Dioxide (22-30) mmol/L Anion Gap mmol/L BUN (7-17) mg/dL Creatinine (0.52-1.04) mg/dL Est GFR (CKD-EPI)AfAm (>60 ml/min/1.73 sqM) Est GFR (CKD-EPI)NonAf (>60 ml/min/1.73 sqM) Glucose (74-99) mg/dL Calcium (8.4-10.2) mg/dL Total Bilirubin (0.2-1.3) mg/dL AST (14-36) U/L ALT (4-34) U/L Alkaline Phosphatase (38-126) U/L Troponin I <0.012 (0.000-0.034) ng/mL NT-Pro-B Natriuret Pep 72 pg/mL Total Protein (6.3-8.2) g/dL Albumin (3.5-5.0) g/dL Coronavirus (PCR) (Not Detectd) Influenza Type A RNA Not Detected (Not Detectd) Influenza Type B (PCR) Not Detected (Not Detectd) 04/22/22 Range/Units 13:08 WBC (3.8-10.6) k/uL RBC (3.80-5.40) m/uL Hgb (11.4-16.0) gm/dL Hct (34.0-46.0) % MCV (80.0-100.0) fL MCH (25.0-35.0) pg MCHC (31.0-37.0) g/dL RDW (11.5-15.5) % Plt Count (150-450) k/uL MPV Neutrophils % % Lymphocytes % % Monocytes % % Eosinophils % % Basophils % % Neutrophils # (1.3-7.7) k/uL Lymphocytes # (1.0-4.8) k/uL Monocytes # (0-1.0) k/uL Eosinophils # (0-0.7) k/uL Basophils # (0-0.2) k/uL Poikilocytosis PT (9.0-12.0) sec INR (<1.2) APTT (22.0-30.0) sec D-Dimer (<0.60) mg/L FEU Sodium (137-145) mmol/L Potassium (3.5-5.1) mmol/L Chloride (98-107) mmol/L Carbon Dioxide (22-30) mmol/L Anion Gap mmol/L BUN (7-17) mg/dL Creatinine (0.52-1.04) mg/dL Est GFR (CKD-EPI)AfAm (>60 ml/min/1.73 sqM) Est GFR (CKD-EPI)NonAf (>60 ml/min/1.73 sqM) Glucose (74-99) mg/dL Calcium (8.4-10.2) mg/dL Total Bilirubin (0.2-1.3) mg/dL AST (14-36) U/L ALT (4-34) U/L Alkaline Phosphatase (38-126) U/L Troponin I (0.000-0.034) ng/mL NT-Pro-B Natriuret Pep pg/mL Total Protein (6.3-8.2) g/dL Albumin (3.5-5.0) g/dL Coronavirus (PCR) Not Detected (Not Detectd) Influenza Type A RNA (Not Detectd) Influenza Type B (PCR) (Not Detectd) - EKG Data EKG Comments: Electronic ventricular pacemaker. Ventricular rate 70 bpm, WA interval 139 ms, QRS duration 174 ms, QTC 473 ms. - Radiology Data Radiology results: report reviewed, image reviewed Disposition Clinical Impression: Viral syndrome Disposition: HOME SELF-CARE Instructions (If sedation given, give patient instructions): Acute Bronchitis (ED), COPD (Chronic Obstructive Pulmonary Disease) (ED) Additional Instructions: Return to the emergency department with any new, worsening, or concerning symptoms. Take the prednisone daily for 5 days and take the doxycycline as prescribed for 7 days. Continue to use your albuterol breathing treatments or the albuterol inhaler every 4-6 hours as needed. Follow up with your primary care provider in 1-2 days. Prescriptions: Albuterol Sulfate [Albuterol Sulfate Hfa] 1 puff PO Q4-6H #8.5 gm predniSONE 50 mg PO QAM 5 Days #5 tablet Doxycycline [Vibramycin] 100 mg PO BID 7 Days #14 capsule Is patient prescribed a controlled substance at d/c from ED?: No Referrals: Daniel Mosqueda MD [Primary Care Provider] - 1-2 days
[2022-04-22 13:16] LABS: Basophils % (A) 1 %; Eosinophils # (A) 0.3 k/uL (0-0.7); Eosinophils % (A) 3 %; HCT 43.9 % (34.0-46.0); Lymphocytes # (A) 2.4 k/uL (1.0-4.8); Lymphocytes % (A) 30 %; MCH 29.1 pg (25.0-35.0); MCHC 34.1 g/dL (31.0-37.0); MCV 85.5 fL (80.0-100.0); Mean Platelet Volume 9.3; Monocytes # (A) 0.4 k/uL (0-1.0); Monocytes % (A) 5 %; Neutrophils # (A) 4.9 k/uL (1.3-7.7); Neutrophils % (A) 61 %; Platelet Count 188 k/uL (150-450); Poikilocytosis Slight; RBC 5.14 m/uL (3.80-5.40); RDW 15.3 % (11.5-15.5); WBC 8.1 k/uL (3.8-10.6)
[2022-04-22 13:26] LABS: Albumin 4.6 g/dL (3.5-5.0); Calcium 9.6 mg/dL (8.4-10.2); Potassium 4.5 mmol/L (3.5-5.1); Total Bilirubin 0.9 mg/dL (0.2-1.3); Total Protein 7.2 g/dL (6.3-8.2)
[2022-04-22 13:29] LABS: INR 1.7 (<1.2); Partial Thromboplastin Time 27.8 sec (22.0-30.0); Prothrombin Time 17.2 sec (9.0-12.0)
--- NOTE | 2022-04-22 13:34 | XR ---
EXAMINATION TYPE: XR chest 2V DATE OF EXAM: 04/22/2022 10:23 AM COMPARISON: Chest radiographs from 12/19/2021 TECHNIQUE: XR chest 2V Frontal and lateral views of the chest. CLINICAL INDICATION:Female, 56 years old with history of difficulty breathing; FINDINGS: Lungs/Pleura: There is no evidence of pleural effusion, focal consolidation, or pneumothorax. Pulmonary vascularity: Unremarkable. Heart/mediastinum: Cardiomediastinal silhouette is unremarkable. Two lead cardiac conduction device o verlying the left hemithorax with lead tips projecting over the right ventricle and right atrium. Musculoskeletal: No acute osseous pathology. IMPRESSION: No acute cardiopulmonary disease/process. No significant change from prior.
[2022-04-22] MEDS ORDERED: LORazepam 2 MG/ML INJ IV STA (13:36)
[2022-04-22 16:09] VITALS: BP 138/77; PULSE 60; RESP 16
== END 2022-04-22 16:09 | disposition home or self-care (01) ==
LOC: EC 12:17
DX: B34.9 Viral infection, unspecified (principal); J44.9 Chronic obstructive pulmonary disease, unspecified; I10 Essential (primary) hypertension; E78.5 Hyperlipidemia, unspecified; I25.2 Old myocardial infarction; Z87.891 Personal history of nicotine dependence; Z20.822 Contact with and (suspected) exposure to COVID-19; Z79.51 Long term (current) use of inhaled steroids; Z79.899 Other long term (current) drug therapy; Z79.01 Long term (current) use of anticoagulants
CPT/HCPCS: 36415; 94640; 93005; 85379; 83880; 80053; 84484; 85025; 85610; 85730; 87502; 87635; 71046; 96375; 96374; 99285; J2060; J2930

== ENCOUNTER 2022-04-26 14:12 | Emergency (ER) | payer MEDICARE ==
[2022-04-26 14:55] VITALS: TEMP 98.6
--- NOTE | 2022-04-26 15:18 | XR ---
EXAMINATION TYPE: XR chest 2V DATE OF EXAM: 04/26/2022 COMPARISON: 04/22/2022 HISTORY: Short of breath TECHNIQUE: 2 views FINDINGS: Heart is normal. Lungs are clear of consolidation. There are no hilar masses. There is left axillary pacemaker. There is no pleural effusion. The bony thorax is intact. IMPRESSION: No active cardiopulmonary disease. No change.
[2022-04-26] MEDS ORDERED: SODIUM CHLORIDE 0.9% 500 ML 500 ML IV STA (16:30)
[2022-04-26] MEDS ORDERED: methylPREDNISolone SOD SUCCI 40 MG/ML 1 ML VIAL IV STA (16:31)
[2022-04-26] MEDS ORDERED: IPRATROPIUM-ALBUTEROL 3 ML NEB INHALATION STA ×2 (16:31)
[2022-04-26 16:47] VITALS: PULSE 88; RESP 18
[2022-04-26] MEDS ORDERED: KETOROLAC 15 MG/ML 1 ML VIAL IVP STA (17:08)
[2022-04-26] MEDS ORDERED: PROCHLORPERAZINE INJ 10 MG/2 ML VIAL IVP STA (17:08)
[2022-04-26] MEDS ORDERED: diphenhydrAMINE 50 MG/ML 1 ML VIAL IVP STA (17:08)
[2022-04-26 17:15] LABS: Basophils % (A) 0 %; Eosinophils # (A) 0.1 k/uL (0-0.7); Eosinophils % (A) 1 %; HGB 15.1 gm/dL (11.4-16.0); Lymphocytes # (A) 2.4 k/uL (1.0-4.8); Lymphocytes % (A) 21 %; MCH 29.3 pg (25.0-35.0); MCHC 33.6 g/dL (31.0-37.0); MCV 87.1 fL (80.0-100.0); Mean Platelet Volume 9.8; Monocytes # (A) 0.6 k/uL (0-1.0); Monocytes % (A) 6 %; Neutrophils % (A) 70 %; Platelet Count 173 k/uL (150-450); RBC 5.17 m/uL (3.80-5.40); RDW 15.3 % (11.5-15.5); WBC 11.5 k/uL (3.8-10.6)
[2022-04-26 17:56] LABS: Calcium 9.8 mg/dL (8.4-10.2); Potassium 4.5 mmol/L (3.5-5.1)
--- NOTE | 2022-04-26 18:21 | ED ---
General Adult HPI - General Chief complaint: Shortness of Breath Stated complaint: SOB Time Seen by Provider: 04/26/22 16:20 Source: patient, RN notes reviewed, old records reviewed Mode of arrival: ambulatory Limitations: no limitations - History of Present Illness Initial comments: Patient is a 56-year-old female who presents back to the emergency department over concern for upper respiratory infection. Has been evaluated previously last week for similar symptoms. There are work up at that time was negative for cardiopulmonary etiology for her shortness of breath. She presents today complaining of congestion, loss of taste and smell mouth, as well as increased wheezing. She has a mild headache as well. Describes as a generalized headache. Not worse headache per . Denies any blurry vision. States she has nasal congestion. Is still on doxycycline at this time. Has been attempting to use home breathing treatments for improvement. States she still taking prednisone 25 mg at home. No other acute complaints at this time. Prese nts for further evaluation. Denies nausea, vomiting, diarrhea. Denies chest pain. Denies shortness of breath but does endorse wheezing. - Related Data Home Medications Medication Instructions Recorded Confirmed Spironolactone [Aldactone] 25 mg PO HS 08/15/20 09/28/21 ALPRAZolam [Xanax] 0.5 mg PO TID PRN 06/20/21 09/28/21 Amiodarone [Cordarone] 100 mg PO DAILY 06/20/21 09/28/21 Atorvastatin [Lipitor] 10 mg PO HS 06/20/21 09/28/21 Warfarin Sodium [Jantoven] 7.5 mg PO W/SUPPER 06/20/21 09/28/21 traZODone HCL 50 mg PO HS PRN 09/28/21 09/28/21 Previous Rx's Medication Instructions Recorded carvediloL [Coreg] 6.25 mg PO BID-W/MEALS #180 tab 04/08/20 lisinopriL [Zestril] 2.5 mg PO DAILY #90 tab 04/08/20 Albuterol Inhaler [Ventolin Hfa 2 puff INHALATION RT-QID #18 gm 12/19/21 Inhaler] predniSONE [Deltasone] 40 mg PO DAILY #8 tab 12/19/21 Albuterol Sulfate [Albuterol 1 puff PO Q4-6H #8.5 gm 04/22/22 Sulfate Hfa] Doxycycline [Vibramycin] 100 mg PO BID 7 Days #14 capsule 04/22/22 predniSONE 50 mg PO QAM 5 Days #5 tablet 04/22/22 predniSONE [Deltasone] 40 mg PO DAILY 5 Days #10 tab 04/26/22 Allergies Allergy/AdvReac Type Severity Reaction Status Date / Time hydromorphone [From Dilaudid] AdvReac Vomiting Verified 04/26/22 14:55 Review of Systems ROS Statement: Those systems with pertinent positive or pertinent negative responses have been documented in the HPI. Review of Systems: CONST: Denies fever EYES: Denies blurry vision ENT: Endorses nasal congestion C/V: Denies Chest pain RESP: Endorses wheezing GI: Denies abdominal pain : Denies dysuria SKIN: Denies rash. MSK: Denies joint pain. NEURO: Endorses headache ROS Other: All systems not noted in ROS Statement are negative. Past Medical History Past Medical History: Chest Pain / Angina, COPD, Hyperlipidemia, Hypertension, Myocardial Infarction ([place]), Pneumonia, Pulmonary Embolus ([place]) Additional Past Medical History / Comment(s): cardiomyopathy, PE (5yrs ago), brain aneursym Last Myocardial Infarction Date:: 5 yrs ago History of Any Multi-Drug Resistant Organisms: None Reported Past Surgical History: AICD, Cholecystectomy, Heart Catheterization Additional Past Surgical History / Comment(s): AICD defibrillator placed 5 years ago Past Anesthesia/Blood Transfusion Reactions: No Reported Reaction Type of Cardiac Device: AICD Device Placement Date:: 2015 Past Psychological History: Anxiety, Depression Smoking Status: Former smoker Past Alcohol Use History: None Reported Past Drug Use History: None Reported - Past Family History Mother Family Medical History: Diabetes Mellitus, Hypertension Father Family Medical History: No Reported History General Exam - General Exam Comments Initial Comments: General: Appears in no acute distress. HEAD: Normal with no signs of head trauma. EYES: PERRLA, EOMI, conjunctiva normal, no discharge. ENT: Hearing grossly intact, normal oropharynx. RESPIRATORY: Bilateral end expiratory wheezing. No hypoxia. No increased work of breathing. C/V: Regular rate and rhythm. S1 and S2 auscultated, no edema, peripheral pulses 2+ and intact throughout ABD: Abd is soft, nontender, nondistended EXT: Normal range of motion, no obvious deformity SKIN: No rashes or lesions observed on exposed skin. NEURO: Alert and oriented 4. Limitations: no limitations Course Vital Signs 04/26/22 04/26/22 04/26/22 14:52 14:54 16:45 Temperature 98.6 F Pulse Rate 81 88 Respiratory 20 22 18 Rate Blood Pressure 145/84 O2 Sat by Pulse 96 Oximetry 04/26/22 04/26/22 16:57 18:58 Temperature 98.6 F Pulse Rate 88 88 Respiratory 18 18 Rate Blood Pressure 128/77 O2 Sat by Pulse 98 Oximetry Medical Decision Making - Medical Decision Making Based on the patient's presentation and physical exam, I do believe she is likely experiencing a COPD exacerbation. I'm also concerned for COVID-19 infection or flu infection. We will obtain basic labs, as well as chest x-ray, screening EKG. She'll be given steroids as well as breathing treatments. She was in agreement this plan. Vital signs are within normal limits. EKG showed no signs of acute ischemia. Chest x-ray reveals no acute cardiopulmonary process. Laboratory studies are remarkable for negative Covid and flu swabs. Patient is a very mild leukocytosis of 11.5 which is likely secondary to steroid use. No other findings. Remainder of the labs are within normal limits. On reevaluation, patient is feeling improved. We discussed results of her laboratory studies and imaging. I believe it is safe for her to be discharged home at this time. She is already on an antibiotic. Due to her increased wheezing, I will provide her with additional days of steroids, 40 mg prednisone for the next 5 days. She has breathing treatments at home and does not require refills. She like to go home at this time. I believe this is reasonable.Vital Signs remain within normal limits. I will provide the patient with a prescription for prednisone 40 mg for 5 days. I instructed the patient to follow up with their PCP in the next 1-3 days. I explained that the patient should return to the emergency department if they experience any worsening symptoms. Strict return precautions were discussed with the patient. The patient expressed understanding of these instructions. I answered all questions that the patient had. The patient was discharged home in good condition with their prescriptions and follow up information. - Lab Data Result diagrams: 04/26/22 17:06 04/26/22 17:06 Lab Results 04/26/22 04/26/22 04/26/22 Range/Units 16:23 16:23 17:06 WBC 11.5 H (3.8-10.6) k/uL RBC 5.17 (3.80-5.40) m/uL Hgb 15.1 (11.4-16.0) gm/dL Hct 45.0 (34.0-46.0) % MCV 87.1 (80.0-100.0) fL MCH 29.3 (25.0-35.0) pg MCHC 33.6 (31.0-37.0) g/dL RDW 15.3 (11.5-15.5) % Plt Count 173 (150-450) k/uL MPV 9.8 Neutrophils % 70 % Lymphocytes % 21 % Monocytes % 6 % Eosinophils % 1 % Basophils % 0 % Neutrophils # 8.0 H (1.3-7.7) k/uL Lymphocytes # 2.4 (1.0-4.8) k/uL Monocytes # 0.6 (0-1.0) k/uL Eosinophils # 0.1 (0-0.7) k/uL Basophils # 0.0 (0-0.2) k/uL Sodium (137-145) mmol/L Potassium (3.5-5.1) mmol/L Chloride (98-107) mmol/L Carbon Dioxide (22-30) mmol/L Anion Gap mmol/L BUN (7-17) mg/dL Creatinine (0.52-1.04) mg/dL Est GFR (CKD-EPI)AfAm (>60 ml/min/1.73 sqM) Est GFR (CKD-EPI)NonAf (>60 ml/min/1.73 sqM) Glucose (74-99) mg/dL Calcium (8.4-10.2) mg/dL Coronavirus (PCR) Not Detected (Not Detectd) Influenza Type A RNA Not Detected (Not Detectd) Influenza Type B (PCR) Not Detected (Not Detectd) 04/26/22 Range/Units 17:06 WBC (3.8-10.6) k/uL RBC (3.80-5.40) m/uL Hgb (11.4-16.0) gm/dL Hct (34.0-46.0) % MCV (80.0-100.0) fL MCH (25.0-35.0) pg MCHC (31.0-37.0) g/dL RDW (11.5-15.5) % Plt Count (150-450) k/uL MPV Neutrophils % % Lymphocytes % % Monocytes % % Eosinophils % % Basophils % % Neutrophils # (1.3-7.7) k/uL Lymphocytes # (1.0-4.8) k/uL Monocytes # (0-1.0) k/uL Eosinophils # (0-0.7) k/uL Basophils # (0-0.2) k/uL Sodium 141 (137-145) mmol/L Potassium 4.5 (3.5-5.1) mmol/L Chloride 104 (98-107) mmol/L Carbon Dioxide 27 (22-30) mmol/L Anion Gap 10 mmol/L BUN 22 H (7-17) mg/dL Creatinine 0.88 (0.52-1.04) mg/dL Est GFR (CKD-EPI)AfAm 85 (>60 ml/min/1.73 sqM) Est GFR (CKD-EPI)NonAf 74 (>60 ml/min/1.73 sqM) Glucose 98 (74-99) mg/dL Calcium 9.8 (8.4-10.2) mg/dL Coronavirus (PCR) (Not Detectd) Influenza Type A RNA (Not Detectd) Influenza Type B (PCR) (Not Detectd) - EKG Data -: EKG Interpreted by Me EKG Comments: 12-lead Electrocardiogram Interpretation Note EKG was reviewed and interpreted by myself. 12-lead ECG performed at 1542 is interpreted by me as revealing ventricular paced rhythm at a rate of 71 beats per minute. Left axis deviation. QRS duration of 169 ms, QTc of 458 ms.. There were no ST or T wave abnormalities to suggest myocardial ischemia or injury. R wave progression across the precordium was satisfactory. By my interpretation this EKG is non-diagnostic for acute ischemia. No change when compared with EKG from 04/22/2022. Disposition Clinical Impression: COPD exacerbation Disposition: HOME SELF-CARE Condition: Good Instructions (If sedation given, give patient instructions): COPD (Chronic Obstructive Pulmonary Disease) (ED) Prescriptions: predniSONE [Deltasone] 40 mg PO DAILY 5 Days #10 tab Is patient prescribed a controlled substance at d/c from ED?: No Referrals: Daniel Mosqueda MD [Primary Care Provider] - 1-2 days Time of Disposition: 18:35
[2022-04-26 19:00] VITALS: BP 128/77
== END 2022-04-26 18:58 | disposition home or self-care (01) ==
LOC: EC 14:12
DX: J44.1 Chronic obstructive pulmonary disease with (acute) exacerbation (principal); E78.5 Hyperlipidemia, unspecified; I10 Essential (primary) hypertension; I25.2 Old myocardial infarction; Z87.891 Personal history of nicotine dependence; Z86.711 Personal history of pulmonary embolism; Z20.822 Contact with and (suspected) exposure to COVID-19; Z79.51 Long term (current) use of inhaled steroids; Z79.899 Other long term (current) drug therapy; Z79.01 Long term (current) use of anticoagulants; Z95.811 Presence of heart assist device
CPT/HCPCS: 36415; 94640; 93005; 80048; 85025; 87502; 87635; 71046; 99285; 96374; 96375; 96361; J1200; J0780; J2920; J1885

== ENCOUNTER 2022-10-25 17:26 | Inpatient (IN) | payer MEDICARE ==
[2022-10-25] MEDS ORDERED: IPRATROPIUM-ALBUTEROL 3 ML NEB INHALATION STA (17:58)
[2022-10-25] MEDS ORDERED: ACETAMINOPHEN TAB 500 MG TAB PO STA (17:59)
--- NOTE | 2022-10-25 18:01 | ED ---
SOB HPI - General Chief Complaint: Shortness of Breath Stated Complaint: ANTONIO Time Seen by Provider: 10/25/22 17:30 Source: patient, EMS Mode of arrival: EMS Limitations: no limitations - History of Present Illness Initial Comments: Patient is a 57-year-old female with past history of nonischemic cardiomyopathy, COPD on 2 L home O2, PEs on Coumadin who presents to the emergency department reporting shortness of breath. States that she woke up from a nap and was extremely short of breath. She was sweating and having significant pressure in her chest. She took several breathing treatments at home without any improvement in her breathing. States that she has an impending sense of doom. Denies overt chest pain. Denies any lower extremity swelling. Admits that she has been taking her Coumadin as directed. Has a chronic cough. No production of sputum. No fevers. Denies hemoptysis. No abdominal pain. Admits nausea without vomiting. She does have an ICD and pacemaker. No other alleviating, Perceptin or modifying factors - Related Data Home Medications Medication Instructions Recorded Confirmed Spironolactone [Aldactone] 25 mg PO W/SUPPER 08/15/20 10/25/22 Amiodarone [Cordarone] 200 mg PO DAILY 06/20/21 10/25/22 Atorvastatin [Lipitor] 10 mg PO W/SUPPER 06/20/21 10/25/22 Warfarin Sodium [Jantoven] 7.5 mg PO W/SUPPER 06/20/21 10/25/22 Cholecalciferol [Vitamin D3 (125 125 mcg PO DAILY 09/05/22 10/25/22 Mcg = 5000 Iu)] Ipratropium-Albuterol Nebulize 3 ml INHALATION RT-QID PRN 09/05/22 10/25/22 [Duoneb 0.5 mg-3 mg/3 ml Soln] Multivitamins, Thera [Multivitamin 1 tab PO DAILY 09/05/22 10/25/22 (formulary)] ALPRAZolam [Xanax] 0.5 mg PO TID PRN 10/25/22 10/25/22 Previous Rx's Medication Instructions Recorded carvediloL [Coreg] 6.25 mg PO BID-W/MEALS #180 tab 04/08/20 lisinopriL [Zestril] 2.5 mg PO DAILY #90 tab 04/08/20 Allergies Allergy/AdvReac Type Severity Reaction Status Date / Time hydromorphone [From Dilaudid] AdvReac Nausea & Verified 10/25/22 17:48 Vomiting Review of Systems ROS Statement: Those systems with pertinent positive or pertinent negative responses have been documented in the HPI. ROS Other: All systems not noted in ROS Statement are negative. Past Medical History Past Medical History: Chest Pain / Angina, COPD, Hyperlipidemia, Hypertension, Myocardial Infarction ([place]), Pneumonia, Pulmonary Embolus (PE) Additional Past Medical History / Comment(s): cardiomyopathy, PE (6yrs ago), brain aneursym LIME Last Myocardial Infarction Date:: 5 yrs ago History of Any Multi-Drug Resistant Organisms: None Reported Past Surgical History: AICD, Cholecystectomy, Heart Catheterization Additional Past Surgical History / Comment(s): AICD defibrillator placed 6 years ago Past Anesthesia/Blood Transfusion Reactions: No Reported Reaction Type of Cardiac Device: AICD Device Placement Date:: 2015 Past Psychological History: Anxiety, Depression Smoking Status: Former smoker Past Alcohol Use History: None Reported Past Drug Use History: None Reported - Past Family History Mother Family Medical History: Diabetes Mellitus, Hypertension Father Family Medical History: No Reported History General Exam Limitations: no limitations Course Vital Signs 10/25/22 10/25/22 10/25/22 17:30 18:00 18:15 Temperature 98.0 F Pulse Rate 120 H 110 H 112 H Respiratory 24 20 20 Rate Blood Pressure 146/74 156/99 112/63 O2 Sat by Pulse 91 L 95 95 Oximetry 10/25/22 10/25/22 10/25/22 18:34 18:43 21:10 Temperature Pulse Rate 100 100 90 Respiratory 18 Rate Blood Pressure 114/79 O2 Sat by Pulse 96 Oximetry Medical Decision Making - Medical Decision Making Was pt. sent in by a medical professional or institution (, PA, [employer] OFF[employer]ER, urgent care, hospital, or [place] health care facility...) When possible be specific @ -[No] Did you speak to anyone other than the patient for history (EMS, parent, family, police, friend...)? What history was obtained from this source @ -[No] Did you review nursing and triage notes (agree or disagree)? Why? @ -[I reviewed and agree with nursing and triage notes] Were old charts reviewed (outside hosp., previous admission, EMS record, old EKG, old radiological studies, urgent care reports/EKG's, [place] health care facility records)? Report findings @ -[No old charts were reviewed] Differential Diagnosis (chest pain, altered mental status, abdominal pain women, abdominal pain men, vaginal bleeding, weakness, fever, dyspnea, syncope, headache, dizziness, GI bleed, back pain, seizure, CVA, palpatations, mental health, musculoskeletal)? @ -[not applicable] EKG interpreted by me (3pts min.). @ -[As above] X-rays interpreted by me (1pt min.). @ -[None done] CT interpreted by me (1pt min.). @ -[None done] U/S interpreted by me (1pt. min.). @ -[None done] What testing was considered but not performed or refused? (CT, X-rays, U/S, labs)? Why? @ -[None] What meds were considered but not given or refused? Why? @ -[None] Did you discuss the management of the patient with other professionals (professionals i.e. , PA, [employer], lab, RT, psych nurse, social service agency director, tenter feeder, teacher, classification officer, case management coordinator)? Give summary @ -[No] Was smoking cessation discussed for >3mins.? @ -[No] Was critical care preformed (if so, how long)? @ -[No] Were there social determinants of health that impacted care today? How? (Homelessness, low income, unemployed, alcoholism, drug addiction, transportation, low edu. Level, literacy, decrease access to med. care, correction, rehab)? @ -[No] Was there de-escalation of care discussed even if they declined (Discuss DNR or withdrawal of care, Hospice)? DNR status @ -[No] What co-morbidities impacted this encounter? (DM, HTN, Smoking, COPD, CAD, Cancer, CVA, ARF, Chemo, Hep., AIDS, mental health diagnosis, sleep apnea, morbid obesity)? @ -[None] Was patient admitted / discharged? Hospital course, mention meds given and route, prescriptions, significant lab abnormalities, going to OR and other pertinent info. @ -Upon arrival patient was placed into room 6. A thorough history and physical exam was performed. She is profusely diaphoretic upon arrival. She had taken 4 breathing treatments at home. EMS did give her 125 of Solu-Medrol and 4 mg of Zofran. She is placed on continuous pulse ox and cardiac monitoring. 12-lead EKG is obtained. Laboratory studies were conducted. Viral swab is performed. Patient is requesting something for anxiety and therefore is given a dose of Valium. Chest x-ray performed which uncertain no acute process. CT is performed as the patient's INR is subtherapeutic and does not demonstrate a PE. She has moderate emphysema. I did order the patient's Coumadin. Because of her significant respiratory insufficiency I did recommend admission. Patient was agreeable to this. Spoke with Dr. Marie who agreed to admit the patient Undiagnosed new problem with uncertain prognosis? @ -[No] Drug Therapy requiring intensive monitoring for toxicity (Heparin, Nitro, Insuli n, Cardizem)? @ -[No] Were any procedures done? @ -[No] Diagnosis/symptom? @ -[default] Acute, or Chronic, or Acute on Chronic? @ -[default] Uncomplicated (without systemic symptoms) or Complicated (systemic symptoms)? @ -[default] Side effects of treatment? @ -[No] Exacerbation, Progression, or Severe Exacerbation? @ -[No] Poses a threat to life or bodily function? How? (Chest pain, [place], [place], pneumonia, PE, COPD, DKA, ARF, appy, cholecystitis, CVA, Diverticulitis, Homicidal, Suicidal, threat to staff... and all critical care pts) @ -[No] - Lab Data Result diagrams: 10/25/22 18:05 10/25/22 18:05 Lab Results 10/25/22 10/25/22 10/25/22 Range/Units 18:05 18:05 18:05 WBC 8.9 (3.8-10.6) k/uL RBC 4.96 (3.80-5.40) m/uL Hgb 14.8 (11.4-16.0) gm/dL Hct 42.5 (34.0-46.0) % MCV 85.8 (80.0-100.0) fL MCH 29.9 (25.0-35.0) pg MCHC 34.9 (31.0-37.0) g/dL RDW 15.8 H (11.5-15.5) % Plt Count 193 (150-450) k/uL MPV 9.5 Neutrophils % 71 % Lymphocytes % 21 % Monocytes % 4 % Eosinophils % 2 % Basophils % 0 % Neutrophils # 6.3 (1.3-7.7) k/uL Lymphocytes # 1.8 (1.0-4.8) k/uL Monocytes # 0.4 (0-1.0) k/uL Eosinophils # 0.2 (0-0.7) k/uL Basophils # 0.0 (0-0.2) k/uL Hyperchromasia Slight Poikilocytosis Slight PT 11.5 (9.0-12.0) sec INR 1.1 (<1.2) APTT 22.2 (22.0-30.0) sec D-Dimer 0.35 (<0.60) mg/L FEU Sodium 142 (137-145) mmol/L Potassium 4.6 (3.5-5.1) mmol/L Chloride 104 (98-107) mmol/L Carbon Dioxide 28 (22-30) mmol/L Anion Gap 10 mmol/L BUN 13 (7-17) mg/dL Creatinine 0.89 (0.52-1.04) mg/dL Est GFR (CKD-EPI)AfAm 83 (>60 ml/min/1.73 sqM) Est GFR (CKD-EPI)NonAf 72 (>60 ml/min/1.73 sqM) Glucose 105 H (74-99) mg/dL Plasma Lactic Acid Carlos Eduardo (0.7-2.0) mmol/L Calcium 9.5 (8.4-10.2) mg/dL Magnesium 2.2 (1.6-2.3) mg/dL Total Bilirubin 0.6 (0.2-1.3) mg/dL AST 24 (14-36) U/L ALT 26 (4-34) U/L Alkaline Phosphatase 109 (38-126) U/L Troponin I (0.000-0.034) ng/mL NT-Pro-B Natriuret Pep pg/mL Total Protein 7.5 (6.3-8.2) g/dL Albumin 4.6 (3.5-5.0) g/dL Influenza Type A (PCR) (Not Detectd) Influenza Type B (PCR) (Not Detectd) RSV (PCR) (Not Detectd) SARS-CoV-2 (PCR) (Not Detectd) 10/25/22 10/25/22 10/25/22 Range/Units 18:05 18:05 18:05 WBC (3.8-10.6) k/uL RBC (3.80-5.40) m/uL Hgb (11.4-16.0) gm/dL Hct (34.0-46.0) % MCV (80.0-100.0) fL MCH (25.0-35.0) pg MCHC (31.0-37.0) g/dL RDW (11.5-15.5) % Plt Count (150-450) k/uL MPV Neutrophils % % Lymphocytes % % Monocytes % % Eosinophils % % Basophils % % Neutrophils # (1.3-7.7) k/uL Lymphocytes # (1.0-4.8) k/uL Monocytes # (0-1.0) k/uL Eosinophils # (0-0.7) k/uL Basophils # (0-0.2) k/uL Hyperchromasia Poikilocytosis PT (9.0-12.0) sec INR (<1.2) APTT (22.0-30.0) sec D-Dimer (<0.60) mg/L FEU Sodium (137-145) mmol/L Potassium (3.5-5.1) mmol/L Chloride (98-107) mmol/L Carbon Dioxide (22-30) mmol/L Anion Gap mmol/L BUN (7-17) mg/dL Creatinine (0.52-1.04) mg/dL Est GFR (CKD-EPI)AfAm (>60 ml/min/1.73 sqM) Est GFR (CKD-EPI)NonAf (>60 ml/min/1.73 sqM) Glucose (74-99) mg/dL Plasma Lactic Acid Carlos Eduardo 1.3 (0.7-2.0) mmol/L Calcium (8.4-10.2) mg/dL Magnesium (1.6-2.3) mg/dL Total Bilirubin (0.2-1.3) mg/dL AST (14-36) U/L ALT (4-34) U/L Alkaline Phosphatase (38-126) U/L Troponin I <0.012 (0.000-0.034) ng/mL NT-Pro-B Natriuret Pep 38 pg/mL Total Protein (6.3-8.2) g/dL Albumin (3.5-5.0) g/dL Influenza Type A (PCR) (Not Detectd) Influenza Type B (PCR) (Not Detectd) RSV (PCR) (Not Detectd) SARS-CoV-2 (PCR) (Not Detectd) 10/25/22 Range/Units 18:05 WBC (3.8-10.6) k/uL RBC (3.80-5.40) m/uL Hgb (11.4-16.0) gm/dL Hct (34.0-46.0) % MCV (80.0-100.0) fL MCH (25.0-35.0) pg MCHC (31.0-37.0) g/dL RDW (11.5-15.5) % Plt Count (150-450) k/uL MPV Neutrophils % % Lymphocytes % % Monocytes % % Eosinophils % % Basophils % % Neutrophils # (1.3-7.7) k/uL Lymphocytes # (1.0-4.8) k/uL Monocytes # (0-1.0) k/uL Eosinophils # (0-0.7) k/uL Basophils # (0-0.2) k/uL Hyperchromasia Poikilocytosis PT (9.0-12.0) sec INR (<1.2) APTT (22.0-30.0) sec D-Dimer (<0.60) mg/L FEU Sodium (137-145) mmol/L Potassium (3.5-5.1) mmol/L Chloride (98-107) mmol/L Carbon Dioxide (22-30) mmol/L Anion Gap mmol/L BUN (7-17) mg/dL Creatinine (0.52-1.04) mg/dL Est GFR (CKD-EPI)AfAm (>60 ml/min/1.73 sqM) Est GFR (CKD-EPI)NonAf (>60 ml/min/1.73 sqM) Glucose (74-99) mg/dL Plasma Lactic Acid Carlos Eduardo (0.7-2.0) mmol/L Calcium (8.4-10.2) mg/dL Magnesium (1.6-2.3) mg/dL Total Bilirubin (0.2-1.3) mg/dL AST (14-36) U/L ALT (4-34) U/L Alkaline Phosphatase (38-126) U/L Troponin I (0.000-0.034) ng/mL NT-Pro-B Natriuret Pep pg/mL Total Protein (6.3-8.2) g/dL Albumin (3.5-5.0) g/dL Influenza Type A (PCR) Not Detected (Not Detectd) Influenza Type B (PCR) Not Detected (Not Detectd) RSV (PCR) Not Detected (Not Detectd) SARS-CoV-2 (PCR) Not Detected (Not Detectd) - EKG Data EKG Comments: EKG demonstrates a electronic ventricular pacemaker with a rate of 110. IA interval QRS 57. QRS 173. QTC of 462. Pacemaker captures appropriately. No sgarbossa criteria Disposition Clinical Impression: COPD (chronic obstructive pulmonary disease) Disposition: ADMITTED IP TO THIS HOSP Condition: Stable Is patient prescribed a controlled substance at d/c from ED?: No Time of Disposition: 19:59 Decision to Admit Reason: Admit from EC Decision Date: 10/25/22 Decision Time: 19:59
[2022-10-25 18:24] LABS: Basophils % (A) 0 %; Eosinophils # (A) 0.2 k/uL (0-0.7); Eosinophils % (A) 2 %; HCT 42.5 % (34.0-46.0); HGB 14.8 gm/dL (11.4-16.0); Hyperchromasia Slight; Lymphocytes # (A) 1.8 k/uL (1.0-4.8); Lymphocytes % (A) 21 %; MCH 29.9 pg (25.0-35.0); MCHC 34.9 g/dL (31.0-37.0); MCV 85.8 fL (80.0-100.0); Mean Platelet Volume 9.5; Monocytes # (A) 0.4 k/uL (0-1.0); Monocytes % (A) 4 %; Neutrophils # (A) 6.3 k/uL (1.3-7.7); Neutrophils % (A) 71 %; Platelet Count 193 k/uL (150-450); Poikilocytosis Slight; RBC 4.96 m/uL (3.80-5.40); RDW 15.8 % (11.5-15.5); WBC 8.9 k/uL (3.8-10.6)
--- NOTE | 2022-10-25 18:40 | XR ---
EXAMINATION TYPE: XR chest 2V DATE OF EXAM: 10/25/2022 6:18 PM COMPARISON: Chest radiographs from 09/05/2022. TECHNIQUE: XR chest 2V Frontal and lateral views of the chest. CLINICAL INDICATION:Female, 57 years old with history of difficulty breathing; FINDINGS: Lungs/Pleura: There is no evidence of pleural effusion, focal consolidation, or pneumothorax. Pulmonary vascularity: Unremarkable. Heart/mediastinum: Cardiomediastinal silhouette is unremarkable. Three lead cardiac conduction device overlying the left hemithorax with lead tips projecting over the right ventricle, right atrium and c oronary sinus. Musculoskeletal: No acute osseous pathology. IMPRESSION: No acute cardiopulmonary disease/process. No significant change from prior.
[2022-10-25 18:47] LABS: Albumin 4.6 g/dL (3.5-5.0); Calcium 9.5 mg/dL (8.4-10.2); Magnesium 2.2 mg/dL (1.6-2.3); Potassium 4.6 mmol/L (3.5-5.1); Total Bilirubin 0.6 mg/dL (0.2-1.3); Total Protein 7.5 g/dL (6.3-8.2)
[2022-10-25 18:51] LABS: INR 1.1 (<1.2); Partial Thromboplastin Time 22.2 sec (22.0-30.0); Prothrombin Time 11.5 sec (9.0-12.0)
[2022-10-25] MEDS ORDERED: NALOXONE 0.4 MG/ML 1 ML VIAL IV PRN (20:31)
[2022-10-25] MEDS ORDERED: IPRATROPIUM-ALBUTEROL 3 ML NEB INHALATION PRN (20:38)
--- NOTE | 2022-10-25 20:40 | CT ---
EXAMINATION TYPE: CT chest angio for PE CT DLP: 561.9 mGycm, Automated exposure control for dose reduction was used. DATE OF EXAM: 10/25/2022 8:06 PM COMPARISON: 08/28/2020 CT CLINICAL INDICATION:Female, 57 years old with history of sob, hx pe, sub therapeutic inr; SOB. Hx PE Cardiomyopathy, stents TECHNIQUE/CONTRAST: CTA scan of the thorax is performed with IV Contrast, patient injected with 100 mL of Isovue 370, pul monary embolism protocol. MIP images are created and reviewed these [facility] FINDINGS: Pulmonary Artery: There is no evidence for a filling defect within the pulmonary vasculature to sugge st acute pulmonary embolism. The pulmonary artery is of normal size. Lungs/Pleura: Moderate centrilobular emphysema changes are present throughout the lungs. No evidence of focal consolidation, pleural effusion or pneumothorax. Airway: Large airways are patent. Heart: Heart is mildly enlarged for size. Cardiac conduction leads are present. Vasculature: No evidence of aortic aneurysm. Mediastinum: No gross evidence of adenopathy. Musculoskeletal: No acute osseous abnormalities, multilevel disc degeneration changes throughout the spine. 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 This is similar to prior in 2020. Soft Tissues: Unremarkable. Lower neck: No significant findings. Upper Abdomen: Diffuse low-attenuation to the liver parenchyma.. IMPRESSION: 1. No evidence of pulmonary embolism. 2. Moderate emphysema. Consider enrolling the patient in annual low-dose lung cancer screening if the y meet criteria. 3. Mild cardiomegaly. Cardiac conduction leads present.
[2022-10-25] MEDS ORDERED: WARFARIN 10 MG TAB PO ONE (21:15)
[2022-10-26] MEDS ORDERED: methylPREDNISolone SOD SUCCI 40 MG/ML 1 ML VIAL IV SCH
[2022-10-26] MEDS ORDERED: ALBUTEROL NEBULIZED 2.5 MG/3 ML INHALATION PRN (02:01)
[2022-10-26] MEDS ORDERED: IPRATROPIUM 0.5 MG/2.5 ML NEBU INHALATION PRN (02:04)
--- NOTE | 2022-10-26 02:07 | P.CNPUL ---
History of Present Illness Consult date: 10/26/22 Requesting physician: Joelle Lopez Reason for consult: COPD Chief complaint: Shortness of breath History of present illness: I'm seeing this patient in new consultation today 10/26/2022 for shortness of breath. This is a 57-year-old white female with past medical history significant for pulmonary embolism, nonischemic cardiomyopathy with AICD, hypertension, COPD, nighttime home oxygen use 2 L/m nasal cannula, ex-smoker with a [id number] history quitting approximately one year ago. Her primary care provider is Dr. Mosqueda. She does not follow with [facility] chief scientist outpatient. Patient presented to the emergency room yesterday for the chief symptom of shortness of breath that woke her up in the middle of the night. There was associated chest heaviness without radiation. Patient denies any palpitations, lightheadedness, or syncope. She denies any fever, cough, hemoptysis. Patient is currently resting in bed, on 2 L nasal cannula, in no acute distress. Chest x-ray on arrival showed no acute cardiopulmonary process. Follow-up chest CTA showed no evidence of pulmonary embolism, background moderate emphysema, and some mild cardiomegaly. ECG on arrival showed a ventricularly paced rhythm without any obvious ischemic changes. Troponins negative 1. NT proBNP was low at 38. CBC on arrival was unremarkable. Patient's INR was 1.1, and she reportedly does take warfarin for history of pulmonary embolism. D-dimer was low at 0.35. BMP showed a sodium 140, potassium 4.6, chloride 104, BUN 13, creatinine 0.9, glucose 105. Was negative for influenza, RSV, COVID-19. Vital signs are stable. Review of Systems REVIEW OF SYSTEMS: CONSTITUTIONAL: Denies any recent significant weight loss or weight gain. EYES: Denies change in vision. EARS, NOSE, MOUTH, THROAT: Denies headaches, denies sore throat. CARDIOVASCULAR: Denies chest pain, palpitations or syncopal episodes. RESPIRATORY: See HPI. GASTROINTESTINAL: Denies change in appetite, abdominal pain, nausea and vomiting, or diarrhea GENITOURINARY: Denies hematuria, denies infections. MUSKULOSKELETAL: Denies pain, denies swelling. INTEGUMENTARY: Denies rash, denies eczema. NEUROLOGICAL: Denies recent memory loss, no recent seizure activity. PSYCHIATRIC: Denies anxiety, denies depression. HEMATOLOGIC/LYMPHATIC: Denies anemia, denies enlarged lymph node Past Medical History Past Medical History: Chest Pain / Angina, COPD, Hyperlipidemia, Hypertension, Myocardial Infarction ([place]), Pneumonia, Pulmonary Embolus (PE) Additional Past Medical History / Comment(s): cardiomyopathy, PE (6yrs ago), brain aneursym SALAMATOF Last Myocardial Infarction Date:: 5 yrs ago History of Any Multi-Drug Resistant Organisms: None Reported Past Surgical History: AICD, Cholecystectomy, Heart Catheterization Additional Past Surgical History / Comment(s): AICD defibrillator placed 6 years ago Past Anesthesia/Blood Transfusion Reactions: No Reported Reaction Type of Cardiac Device: AICD Device Placement Date:: 2015 Past Psychological History: Anxiety, Depression Smoking Status: Former smoker Past Alcohol Use History: None Reported Past Drug Use History: None Reported - Past Family History Mother Family Medical History: Diabetes Mellitus, Hypertension Father Family Medical History: No Reported History Medications and Allergies Home Medications Medication Instructions Recorded Confirmed Type carvediloL [Coreg] 6.25 mg PO BID-W/MEALS #180 tab 04/08/20 10/25/22 Rx lisinopriL [Zestril] 2.5 mg PO DAILY #90 tab 04/08/20 10/25/22 Rx Spironolactone [Aldactone] 25 mg PO W/SUPPER 08/15/20 10/25/22 History Amiodarone [Cordarone] 200 mg PO DAILY 06/20/21 10/25/22 History Atorvastatin [Lipitor] 10 mg PO W/SUPPER 06/20/21 10/25/22 History Warfarin Sodium [Jantoven] 7.5 mg PO W/SUPPER 06/20/21 10/25/22 History Cholecalciferol [Vitamin D3 (125 125 mcg PO DAILY 09/05/22 10/25/22 History Mcg = 5000 Iu)] Ipratropium-Albuterol Nebulize 3 ml INHALATION RT-QID PRN 09/05/22 10/25/22 History [Duoneb 0.5 mg-3 mg/3 ml Soln] Multivitamins, Thera [Multivitamin 1 tab PO DAILY 09/05/22 10/25/22 History (formulary)] ALPRAZolam [Xanax] 0.5 mg PO TID PRN 10/25/22 10/25/22 History Allergies Allergy/AdvReac Type Severity Reaction Status Date / Time hydromorphone [From Dilaudid] AdvReac Nausea & Verified 10/25/22 17:48 Vomiting Physical Exam Vitals: Vital Signs Temp Pulse Pulse Resp BP BP Pulse Ox 10/25/22 22:05 98.5 F 89 20 123/72 97 10/25/22 21:10 90 18 114/79 96 10/25/22 18:43 100 10/25/22 18:34 100 10/25/22 18:15 112 H 20 112/63 95 10/25/22 18:00 110 H 20 156/99 95 10/25/22 17:30 98.0 F 120 H 24 146/74 91 L Intake and Output 10/25/22 10/25/22 10/26/22 14:59 22:59 06:59 Intake Total 240 Balance 240 Intake: Oral 240 Other: Weight 102.058 kg GENERAL EXAM: Alert, 57-year-old white female, comfortable in no apparent distress. HEAD: Normocephalic and atraumatic EYES: Normal reaction of pupils, equal size. NOSE: Clear with pink turbinates. THROAT: No erythema or exudates. NECK: No masses, no JVD. CHEST: No chest wall deformity. LUNGS: Equal air entry with mild expiratory wheezes throughout. no crackles, rhonchi or focal dullness. On 2 L nasal cannula. No conversational dyspnea or accessory muscle use.. CVS: S1 and S2 normal with no audible murmur, regular rhythm. No extra heart sounds. Rate 90 bpm ABDOMEN: No hepatosplenomegaly, active bowel sounds, no guarding or rigidity. SPINE: No scoliosis or deformity SKIN: No rashes CENTRAL NERVOUS SYSTEM: No focal deficits, tone is normal in all 4 extremities. EXTREMITIES: There is no peripheral edema, clubbing, or cyanosis. Peripheral pulses are intact. Results - Laboratory Findings CBC and BMP: 10/25/22 18:05 10/25/22 18:05 PT/INR, D-dimer PT 11.5 sec (9.0-12.0) 10/25/22 18:05 INR 1.1 (<1.2) 10/25/22 18:05 D-Dimer 0.35 mg/L FEU (<0.60) 10/25/22 18:05 Abnormal lab findings: Abnormal Labs 10/25/22 10/25/22 18:05 18:05 RDW 15.8 H Glucose 105 H - Diagnostic Findings Chest x-ray: image reviewed Assessment and Plan Assessment: Acute exacerbation of COPD. negative for influenza, RSV, COVID-19. Chest x-ray showed no acute cardiopulmonary process. Acute on chronic hypoxemic respiratory failure secondary to above. Down to 2 L nasal cannula. Patient normally wears 2 L nasal cannula at home when sleeping. History of nonischemic cardiomyopathy with biventricular AICD. Most recent echocardiogram on 07/21/2021 shows a preserved ejection fraction of 50-55% with a moderate to severely enlarged right ventricle and moderate concentric LVH. NT proBNP on arrival was low at 38. Hypertension History of pulmonary embolism on warfarin. INR was subtherapeutic on arrival. D-dimer low at 0.35. Follow-up chest CTA was negative for pulmonary embolism Ex-smoker. Patient recently quit approximately 1 year ago, and has a [id number] history Plan: Patient's medications, labs, chest x-ray reviewed Continue bronchodilators Start IV Solu-Medrol Start the patient on Symbicort inhaler Continue supplemental oxygen to maintain oxygen saturation of 92% or greater Repeat PT/INR in the morning Continue anticoagulation with warfarin We will continue to follow I have personally seen and examined the patient, performed the documentation and the assessment and plan as written. Number of minutes spent on the visit:20 Time with Patient: Greater than 30
[2022-10-26] MEDS: diazePAM 5 MG TAB PO PRN ×3 (02:15→22:31)
[2022-10-26] MEDS: methylPREDNISolone SOD SUCCI 40 MG/ML 1 ML VIAL IV SCH ×4 (05:30→23:37)
[2022-10-26] MEDS: IPRATROPIUM 0.5 MG/2.5 ML NEBU INHALATION SCH ×3 (08:06→15:13)
[2022-10-26] MEDS: SYMBICORT 160-4.5 MCG INHALER INHALATION SCH ×2 (08:06→20:19)
[2022-10-26] MEDS: ALBUTEROL NEBULIZED 2.5 MG/3 ML INHALATION SCH ×3 (08:16→15:13)
[2022-10-26 10:57] LABS: African American GFR (CKD) 101.5 (60.0-200.0); Anion Gap 14.7 mmol/L (10.00-18.00); BUN/Creat Ratio 15.82 Ratio (12.00-20.00); Blood Urea Nitrogen 11.9 mg/dL (9.0-27.0); Calcium 10.3 mg/dL (8.7-10.3); Non-African American GFR(CKD) 87.6 (60.0-200.0); Potassium 5.1 mmol/L (3.5-5.5)
[2022-10-26 11:15] LABS: Basophils # (A) 0.01 X 10*3/uL (0.00-0.10); Basophils % (A) 0.1 %; Eosinophils # (A) 0 X 10*3/uL (0.04-0.35); Eosinophils % (A) 0 %; HCT 45.8 % (37.2-46.3); HGB 14.7 g/dL (12.0-15.0); Immature Grans, Automated 0.5 %; Lymphocytes # (A) 1.13 X 10*3/uL (0.90-5.00); Lymphocytes % (A) 11.7 %; MCH 28.6 pg (27.0-32.0); MCHC 32.1 g/dL (32.0-37.0); MCV 89.1 fL (80.0-97.0); Mean Platelet Volume 12.9 fL (9.5-12.2); Monocytes # (A) 0.15 X 10*3/uL (0.20-1.00); Monocytes % (A) 1.6 %; NRBC Per 100 WBC 0 /100 WBCS (0.0-0.0); Neutrophils # (A) 8.28 X 10*3/uL (1.80-7.70); Neutrophils % (A) 86.1 %; Platelet Count 199 X 10*3/uL (140-440); RBC 5.14 X 10*6/uL (4.10-5.20); RDW 15.9 % (11.5-14.5); WBC 9.62 X 10*3/uL (4.50-10.00)
[2022-10-26 12:10] LABS: INR 0.97 (0.90-1.11)
[2022-10-26] MEDS ORDERED: IPRATROPIUM-ALBUTEROL 3 ML NEB INHALATION PRN (12:14)
[2022-10-26] MEDS ORDERED: ALPRAZolam 0.5 MG TAB PO PRN (12:14)
[2022-10-26] MEDS ORDERED: WARFARIN 7.5 MG TAB PO SCH (17:30)
[2022-10-26] MEDS: SPIRONOLACTONE 25 MG TAB PO SCH (17:50)
[2022-10-26] MEDS: carvediloL 6.25 MG TAB PO SCH (17:50)
[2022-10-26] MEDS: ATORVASTATIN 10 MG TAB PO SCH (17:50)
[2022-10-26] MEDS ORDERED: WARFARIN 10 MG TAB PO ONE (18:00)
--- NOTE | 2022-10-26 20:33 | PN ---
PROGRESS NOTE DATE OF SERVICE: 10/26/2022 CHIEF COMPLAINT: Shortness of breath. HISTORY OF PRESENT ILLNESS: This lady is feeling a little bit better than yesterday. She is still somewhat dyspneic. She has had no fever, chills, chest pain, etc. She has had no hemoptysis. PHYSICAL EXAMINATION: CHEST: Quite clear. CARDIAC: Normal. ABDOMEN: Soft, nontender. IMPRESSION: 1. Shortness of breath. 2. History of atrial fibrillation. 3. History of congestive heart failure. 4. Chronic obstructive pulmonary disease. PLAN: Continue management for what is probably COPD. MMODL / IJN: [id number] /
--- NOTE | 2022-10-27 03:24 | HP ---
HISTORY AND PHYSICAL CHIEF COMPLAINT: Difficulty breathing. HISTORY OF PRESENT ILLNESS: This is another admission for this 57-year-old white female with numerous medical problems including history of atrial fibrillation, hyperlipidemia, coronary artery disease, depression, cardiomyopathy, history of pulmonary emboli, congestive heart failure, pacemaker, ruptured cerebral aneurysm, GERD and depression. She presented to the emergency room with shortness of breath. Her evaluation was not completed and she was admitted as an exacerbation of COPD. REVIEW OF SYSTEMS: She denies focal neurologic deficits, chest pain, diaphoresis, hemoptysis, syncope, arrhythmias, etc. Past medical history, family history, personal and social histories demonstrate that she is on [facility] with 1. DuoNeb. 2. Carvedilol 6.25 twice a day. 3. Jantoven 7.5 once a day. 4. Spironolactone 25 once a day. 5. Lisinopril 2.5 once a day. 6. Amiodarone 200 mg once a day. 7. Atorvastatin 10 mg once a day. 8. Omeprazole. 9. Xanax. 10.Symbicort. 11.Ventolin. ALLERGIES: She is allergic to Dilaudid. Remainder of her history is unremarkable. States she is not smoking any longer, but has in the past. PHYSICAL EXAMINATION: VITAL SIGNS: Blood pressure is 150/90 with a pulse of 93, respirations 38, and she is afebrile. GENERAL: She appeared to be in some respiratory distress. SKIN: Color is normal, skin is warm and dry. LYMPHATICS: Lymph nodes are not enlarged. HEENT: Head, ears, eyes, nose, mouth and throat were normal. Sclerae are normal. Pupils equal and round. Ears are clear. Nose, mouth, and throat were normal. CHEST: Demonstrated decreased breath sounds with scattered rales and rhonchi. There is expiratory wheezing. CARDIAC: Demonstrated atrial fibrillation. ABDOMEN: Soft and nontender. There are no masses or visceromegaly. Bowel sounds are present. EXTREMITIES: Normal. NEUROLOGIC: Intact. DIAGNOSES: She is admitted to the hospital with diagnoses, 1. Shortness of breath. 2. Exacerbation of chronic obstructive pulmonary disease. 3. History of atrial fibrillation. 4. History of coronary artery disease with prior myocardial infarction. 5. History of pulmonary emboli. 6. Congestive heart failure. 7. Pacemaker. 8. Previous ruptured central nervous aneurysm. PLAN: 1. Bedrest. 2. IV fluids. 3. Updrafts. 4. Continue with regular medications. 5. Consider IV and inhaled steroids. MMAZUCENAL / IJN: [id number] /
[2022-10-27] MEDS: methylPREDNISolone SOD SUCCI 40 MG/ML 1 ML VIAL IV SCH ×3 (05:38→17:46)
[2022-10-27 06:38] LABS: INR 1.5 (<1.2); Prothrombin Time 14.6 sec (9.0-12.0)
[2022-10-27] MEDS: SYMBICORT 160-4.5 MCG INHALER INHALATION SCH ×2 (08:19→20:06)
[2022-10-27] MEDS: IPRATROPIUM-ALBUTEROL 3 ML NEB INHALATION SCH ×4 (08:19→20:07)
[2022-10-27] MEDS: diazePAM 5 MG TAB PO PRN ×2 (08:54→22:01)
[2022-10-27] MEDS: AMIODARONE 200 MG TAB PO SCH (08:55)
[2022-10-27] MEDS: carvediloL 6.25 MG TAB PO SCH ×2 (08:55→17:46)
[2022-10-27] MEDS: MULTIVITAMINS, THERA 1 EACH TAB PO SCH (08:55)
[2022-10-27] MEDS: CHOLECALCIFEROL 125 MCG (5000 IU) TABLET PO SCH (08:55)
--- NOTE | 2022-10-27 11:22 | P.PN ---
Subjective Progress Note Date: 10/27/22 I'm seeing this patient in new consultation today 10/26/2022 for shortness of breath. This is a 57-year-old white female with past medical history significant for pulmonary embolism, nonischemic cardiomyopathy with AICD, hypertension, COPD, nighttime home oxygen use 2 L/m nasal cannula, ex-smoker with a [id number] history quitting approximately one year ago. Her primary care provider is Dr. Mosqueda. 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 Patient presented to the emergency room yesterday for the chief symptom of shortness of breath that woke her up in the middle of the night. There was associated chest heaviness without radiation. Patient denies any palpitations, lightheadedness, or syncope. She denies any fever, cough, hemoptysis. Patient is currently resting in bed, on 2 L nasal cannula, in no acute distress. Chest x-ray on arrival showed no acute cardiopulmonary process. Follow-up chest CTA showed no evidence of pulmonary embolism, background moderate emphysema, and some mild cardiomegaly. ECG on arrival showed a ventricularly paced rhythm without any obvious ischemic changes. Troponins negative 1. NT proBNP was low at 38. CBC on arrival was unremarkable. Patient's INR was 1.1, and she reportedly does take warfarin for history of pulmonary embolism. D-dimer was low at 0.35. BMP showed a sodium 140, potassium 4.6, chloride 104, BUN 13, creatinine 0.9, glucose 105. Was negative for influenza, RSV, COVID-19. Vital signs are stable. The patient is seen today 10/27/2022 in follow-up on the regular medical floor. She is currently sitting up in bed. Awake and alert in no acute distress. Denies any worsening shortness of breath, cough or congestion. She is maintaining O2 saturation the 90s on room air. She is anxious to go home. She is continued on Symbicort, DuoNeb inhalations, IV Solu-Medrol. Anticoagulated with warfarin, subtherapeutic. Objective - Vital Signs Vital signs: Vital Signs Temp 97.6 F 10/27/22 08:00 Pulse 96 10/27/22 08:31 Resp 16 10/27/22 08:00 BP 115/76 10/27/22 08:00 Pulse Ox 95 10/27/22 08:22 FiO2 Intake & Output 04/10/23 04/11/23 04/11/23 18:59 06:59 18:59 Intake Total 830 Balance 830 Intake: Oral 830 Other: # Voids 3 2 # Bowel Movements 1 - Exam GENERAL EXAM: Alert, obese, pleasant 57-year-old female, on room air, comfortable in no apparent distress. HEAD: Normocephalic. EYES: Normal reaction of pupils, equal size. NOSE: Clear with pink turbinates. THROAT: No erythema or exudates. NECK: No masses, no JVD. CHEST: No chest wall deformity. LUNGS: Equal air entry with no crackles, wheeze, rhonchi or dullness. CVS: S1 and S2 normal with no audible murmur, regular rhythm. ABDOMEN: No hepatosplenomegaly, normal bowel sounds, no guarding or rigidity. SPINE: No scoliosis or deformity SKIN: No rashes CENTRAL NERVOUS SYSTEM: No focal deficits, tone is normal in all 4 extremities. EXTREMITIES: There is no peripheral edema. No clubbing, no cyanosis. Peripheral pulses are intact. - Labs CBC & Chem 7: 10/26/22 06:07 10/26/22 06:07 Labs: Abnormal Lab Results - Last 24 Hours (Table) 10/27/22 Range/Units 06:13 PT 14.6 H (9.0-12.0) sec INR 1.5 H (<1.2) Assessment and Plan Assessment: Acute exacerbation of COPD. Negative for influenza, RSV, COVID-19. Chest x-ray showed no acute cardiopulmonary process. Acute on chronic hypoxemic respiratory failure secondary to above. Patient normally wears 2 L nasal cannula at home when sleeping. History of nonischemic cardiomyopathy with biventricular AICD. Most recent echocardiogram on 07/21/2021 shows a preserved ejection fraction of 50-55% with a moderate to severely enlarged right ventricle and moderate concentric LVH. NT proBNP on arrival was low at 38. Hypertension History of pulmonary embolism on warfarin. INR was subtherapeutic on arrival. D-dimer low at 0.35. Follow-up chest CTA was negative for pulmonary embolism Ex-smoker. Patient recently quit approximately 1 year ago, and has a [id number] history Plan: The patient was seen and evaluated Labs and medications reviewed Continue Symbicort, DuoNeb inhalations Could be discharged home from pulmonary standpoint Follow-up in our office in 1 week I have personally seen and examined the patient, performed the documentation and the assessment and plan as written. Number of minutes spent on the visit: 10.
[2022-10-27] MEDS: SPIRONOLACTONE 25 MG TAB PO SCH (17:46)
[2022-10-27] MEDS: ATORVASTATIN 10 MG TAB PO SCH (17:46)
[2022-10-27] MEDS ORDERED: WARFARIN 7.5 MG TAB PO ONE (18:00)
--- NOTE | 2022-10-27 23:20 | PN ---
PROGRESS NOTE DATE OF SERVICE: 10/27/2022 CHIEF COMPLAINT: Exacerbation of chronic obstructive pulmonary disease. HISTORY OF PRESENT ILLNESS: This lady is doing a bit better. Breathing is improved. She has had no chest pain. PHYSICAL EXAMINATION: CHEST: Clear. CARDIAC: Normal. ABDOMEN: Soft and nontender. IMPRESSION: 1. Exacerbation of chronic obstructive pulmonary disease. 2. Congestive heart failure. 3. Atrial fibrillation. 4. History of cerebral aneurysm. PLAN: Continue with program and possibly home tomorrow. MMODL / IJN: [id number] /
[2022-10-28] MEDS: methylPREDNISolone SOD SUCCI 40 MG/ML 1 ML VIAL IV SCH ×2 (00:36→06:15)
[2022-10-28 07:36] VITALS: RESP 18
[2022-10-28 07:37] LABS: Prothrombin Time 19.6 sec (9.0-12.0)
[2022-10-28] MEDS: MULTIVITAMINS, THERA 1 EACH TAB PO SCH (07:37)
[2022-10-28] MEDS: carvediloL 6.25 MG TAB PO SCH (07:37)
[2022-10-28] MEDS: AMIODARONE 200 MG TAB PO SCH (07:39)
[2022-10-28] MEDS: CHOLECALCIFEROL 125 MCG (5000 IU) TABLET PO SCH (07:39)
[2022-10-28] MEDS: diazePAM 5 MG TAB PO PRN (07:51)
[2022-10-28] MEDS: SYMBICORT 160-4.5 MCG INHALER INHALATION SCH (08:17)
[2022-10-28] MEDS: IPRATROPIUM-ALBUTEROL 3 ML NEB INHALATION SCH ×3 (08:17→15:38)
--- NOTE | 2022-10-28 11:06 | P.PN ---
Subjective Progress Note Date: 10/28/22 I'm seeing this patient in new consultation today 10/26/2022 for shortness of breath. This is a 57-year-old white female with past medical history significant for pulmonary embolism, nonischemic cardiomyopathy with AICD, hypertension, COPD, nighttime home oxygen use 2 L/m nasal cannula, ex-smoker with a [id number] history quitting approximately one year ago. Her primary care provider is Dr. Mosqueda. 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 Patient presented to the emergency room yesterday for the chief symptom of shortness of breath that woke her up in the middle of the night. There was associated chest heaviness without radiation. Patient denies any palpitations, lightheadedness, or syncope. She denies any fever, cough, hemoptysis. Patient is currently resting in bed, on 2 L nasal cannula, in no acute distress. Chest x-ray on arrival showed no acute cardiopulmonary process. Follow-up chest CTA showed no evidence of pulmonary embolism, background moderate emphysema, and some mild cardiomegaly. ECG on arrival showed a ventricularly paced rhythm without any obvious ischemic changes. Troponins negative 1. NT proBNP was low at 38. CBC on arrival was unremarkable. Patient's INR was 1.1, and she reportedly does take warfarin for history of pulmonary embolism. D-dimer was low at 0.35. BMP showed a sodium 140, potassium 4.6, chloride 104, BUN 13, creatinine 0.9, glucose 105. Was negative for influenza, RSV, COVID-19. Vital signs are stable. The patient is seen today 10/27/2022 in follow-up on the regular medical floor. She is currently sitting up in bed. Awake and alert in no acute distress. Denies any worsening shortness of breath, cough or congestion. She is maintaining O2 saturation the 90s on room air. She is anxious to go home. She is continued on Symbicort, DuoNeb inhalations, IV Solu-Medrol. Anticoagulated with warfarin, subtherapeutic. Patient seen today 10/28/2022 in follow-up on the regular medical floor. She is awake and alert in no acute distress. Sitting up at the bedside. Denies any worsening shortness of breath, cough or congestion. Feeling back to her baseline. Was hoping to go home yesterday. She is continued on Symbicort, DuoNeb inhalations, IV Solu-Medrol. Anticoagulated with warfarin. INR 2.0. Objective - Vital Signs Vital signs: Vital Signs Temp 97.8 F 10/28/22 07:30 Pulse 82 10/28/22 08:50 Resp 18 10/28/22 08:50 BP 144/82 10/28/22 07:30 Pulse Ox 95 10/28/22 08:17 FiO2 Intake & Output 10/27/22 10/28/22 10/28/22 18:59 06:59 18:59 Other: Voiding Method Toilet Toilet Toilet # Voids 4 2 1 # Bowel Movements 1 0 - Exam GENERAL EXAM: Alert, obese, pleasant 57-year-old female, sitting up at the bedside, on room air, comfortable in no apparent distress. HEAD: Normocephalic. EYES: Normal reaction of pupils, equal size. NOSE: Clear with pink turbinates. THROAT: No erythema or exudates. NECK: No masses, no JVD. CHEST: No chest wall deformity. LUNGS: Equal air entry with no crackles, wheeze, rhonchi or dullness. CVS: S1 and S2 normal with no audible murmur, regular rhythm. ABDOMEN: No hepatosplenomegaly, normal bowel sounds, no guarding or rigidity. SPINE: No scoliosis or deformity SKIN: No rashes CENTRAL NERVOUS SYSTEM: No focal deficits, tone is normal in all 4 extremities. EXTREMITIES: There is no peripheral edema. No clubbing, no cyanosis. Peripheral pulses are intact. - Labs CBC & Chem 7: 10/26/22 06:07 10/26/22 06:07 Labs: Abnormal Lab Results - Last 24 Hours (Table) 10/28/22 Range/Units 05:30 PT 19.6 H (9.0-12.0) sec INR 2.0 H (<1.2) Assessment and Plan Assessment: Acute exacerbation of COPD. Negative for influenza, RSV, COVID-19. Chest x-ray showed no acute cardiopulmonary process. Acute on chronic hypoxemic respiratory failure secondary to above. Patient normally wears 2 L nasal cannula at home when sleeping. History of nonischemic cardiomyopathy with biventricular AICD. Most recent echocardiogram on 07/21/2021 shows a preserved ejection fraction of 50-55% with a moderate to severely enlarged right ventricle and moderate concentric LVH. NT proBNP on arrival was low at 38. Hypertension History of pulmonary embolism on warfarin. INR was subtherapeutic on arrival. Improved and currently 2.0. D-dimer low at 0.35. Follow-up chest CTA was negative for pulmonary embolism Ex-smoker. Patient recently quit approximately 1 year ago, and has a [id number] history Plan: The patient was seen and evaluated Labs and medications reviewed Continue Symbicort, DuoNeb inhalations Transitioned Solu-Medrol to prednisone Continue her home oxygen at night Cleared for discharge Follow-up in our office in 1 week I have personally seen and examined the patient, performed the documentation and the assessment and plan as written. Number of minutes spent on the visit: 10.
[2022-10-28 13:57] VITALS: BP 104/67; TEMP 98.2
[2022-10-28 15:51] VITALS: PULSE 82
[2022-10-28] MEDS ORDERED: WARFARIN 5 MG TAB PO ONE (18:00)
[2022-10-29] MEDS ORDERED: predniSONE 20 MG TAB PO SCH (09:00)
--- NOTE | 2022-10-30 08:04 | DS ---
DISCHARGE SUMMARY CHIEF COMPLAINT: Difficulty breathing. HISTORY OF PRESENT ILLNESS AND PHYSICAL EXAMINATION: Details of this lady's history and physical can be found in the initial workup. LABORATORY STUDIES: While she was in the hospital, she had laboratory studies, details of which can be found in the laboratory section of her chart. COURSE IN THE HOSPITAL: After admission, she was placed on bedrest, started intravenous fluids and started on nasal O2 and updrafts. She was seen by Pulmonology and she greatly improved and was anxious to be discharged on the . She will go home on her usual activity, diet, medication along with oral steroids for several days. FINAL DIAGNOSES: 1. Exacerbation of chronic obstructive pulmonary disease. 2. Status post central nervous system aneurysm. 3. Coronary artery disease. 4. Arrhythmia. 5. Congestive heart failure. 6. Cardiomyopathy. OPERATIONS: None. CONSULTATIONS: Pulmonology, she is improved. NEERAJ / SAKINA: [id number] /
== END 2022-10-28 18:00 | disposition home or self-care (01) | DRG 190 ==
LOC: EC 17:26 → 5NMEDONC 20:31
PROVIDERS: ADMIT Family Medicine; ATTEND Family Medicine
DX: J44.1 Chronic obstructive pulmonary disease with (acute) exacerbation (principal); J96.21 Acute and chronic respiratory failure with hypoxia; I42.8 Other cardiomyopathies; Z87.891 Personal history of nicotine dependence; E78.5 Hyperlipidemia, unspecified; F32.A Depression, unspecified; F41.9 Anxiety disorder, unspecified; K21.9 Gastro-esophageal reflux disease without esophagitis; I11.0 Hypertensive heart disease with heart failure; I25.2 Old myocardial infarction; I48.91 Unspecified atrial fibrillation; I50.9 Heart failure, unspecified; Z99.81 Dependence on supplemental oxygen; Z20.822 Contact with and (suspected) exposure to COVID-19; Z86.79 Personal history of other diseases of the circulatory system; Z88.5 Allergy status to narcotic agent; Z86.711 Personal history of pulmonary embolism; Z79.01 Long term (current) use of anticoagulants; Z79.899 Other long term (current) drug therapy; Z82.49 Family history of ischemic heart disease and other diseases of the circulatory system; Z95.810 Presence of automatic (implantable) cardiac defibrillator
CPT/HCPCS: 36415; 71046; 71275; 80048; 80053; 83605; 83735; 83880; 84484; 85025; 85379; 85610; 85730; 87636; 93005; 94640; 94760

== ENCOUNTER 2022-11-09 20:41 | Emergency (ER) | payer MEDICARE ==
[2022-11-09 20:52] VITALS: TEMP 98
--- NOTE | 2022-11-09 21:43 | ED ---
SOB HPI - General Chief Complaint: Shortness of Breath Stated Complaint: Shortness of breath, Chest tightness Time Seen by Provider: 11/09/22 21:13 Source: patient Mode of arrival: ambulatory Limitations: no limitations - History of Present Illness Initial Comments: She is a 57-year-old woman who presents with complaint that she believes that her COPD has been flaring up. Symptoms had started 2 weeks ago proximately. She had been in and seeing her physician and was given course of steroid. She states that she had finished 7 days of steroid yesterday, and thinks that she is worsening again. She has not noted fever or chills. No change in her cough. She does use oxygen at 2 L setting at home. She is not having chest pain. There is dyspnea, wheezing, chest tightness, cough with no sputum. He has not noted change in urination or bowel movements. No leg pain or swelling. MD Complaint: shortness of breath Onset/Timin -: week(s) Consistency: constant Improves With: other (Steroids) Worsens With: nothing Known History Of: COPD Associated Symptoms: cough Treatments Prior to Arrival: none - Related Data Home Oxygen Therapy: Yes Home Oxygen Amount: 2 Liters Home Medications Medication Instructions Recorded Confirmed Spironolactone [Aldactone] 25 mg PO W/SUPPER 08/15/20 11/11/22 Amiodarone [Cordarone] 200 mg PO DAILY 06/20/21 11/11/22 Atorvastatin [Lipitor] 10 mg PO W/SUPPER 06/20/21 11/11/22 Warfarin Sodium [Jantoven] 7.5 mg PO W/SUPPER 06/20/21 11/11/22 Cholecalciferol [Vitamin D3 (125 125 mcg PO DAILY 09/05/22 11/11/22 Mcg = 5000 Iu)] Ipratropium-Albuterol Nebulize 3 ml INHALATION RT-QID PRN 09/05/22 11/11/22 [Duoneb 0.5 mg-3 mg/3 ml Soln] Multivitamins, Thera [Multivitamin 1 tab PO DAILY 09/05/22 11/11/22 (formulary)] ALPRAZolam [Xanax] 0.5 mg PO TID PRN 10/25/22 11/11/22 Previous Rx's Medication Instructions Recorded carvediloL [Coreg] 6.25 mg PO BID-W/MEALS #180 tab 04/08/20 lisinopriL [Zestril] 2.5 mg PO DAILY #90 tab 04/08/20 Budesonide-Formot 160-4.5 Mcg 2 puff INHALATION RT-BID 30 Days 10/28/22 [Symbicort 160-4.5 Mcg Inhaler] #1 dispenser Ipratropium-Albuterol Nebulize 3 ml INHALATION RT-QID each 10/28/22 [Duoneb 0.5 mg-3 mg/3 ml Soln] predniSONE [Deltasone] 20 mg PO BID #8 tab 11/10/22 Albuterol Inhaler [Ventolin Hfa 2 puff INHALATION QID #8 gm 11/11/22 Inhaler] Azithromycin [Zithromax] 250 mg PO DAILY 4 Days #4 tab 11/11/22 predniSONE [Deltasone] 40 mg PO DAILY 5 Days #10 tab 11/11/22 Allergies Allergy/AdvReac Type Severity Reaction Status Date / Time hydromorphone [From Dilaudid] AdvReac Nausea & Verified 11/11/22 15:23 Vomiting Review of Systems ROS Statement: Those systems with pertinent positive or pertinent negative responses have been documented in the HPI. ROS Other: All systems not noted in ROS Statement are negative. Constitutional: Denies: fever, chills, weakness Respiratory: Reports: cough, dyspnea, wheezes. Denies: hemoptysis, stridor Cardiovascular: Denies: chest pain, palpitations, orthopnea, edema, syncope Gastrointestinal: Denies: abdominal pain, vomiting, diarrhea Genitourinary: Denies: dysuria, hematuria Musculoskeletal: Denies: back pain Skin: Denies: rash Neurological: Denies: headache, weakness, numbness Past Medical History Past Medical History: Chest Pain / Angina, COPD, Hyperlipidemia, Hypertension, Myocardial Infarction (RI), Pneumonia, Pulmonary Embolus (PE) Additional Past Medical History / Comment(s): cardiomyopathy, PE (6yrs ago), brain aneursym RAMONA Last Myocardial Infarction Date:: 5 yrs ago History of Any Multi-Drug Resistant Organisms: None Reported Past Surgical History: AICD, Cholecystectomy, Heart Catheterization Additional Past Surgical History / Comment(s): AICD defibrillator placed 6 years ago Past Anesthesia/Blood Transfusion Reactions: No Reported Reaction Type of Cardiac Device: AICD Device Placement Date:: 2015 Past Psychological History: Anxiety, Depression Smoking Status: Former smoker Past Alcohol Use History: None Reported Past Drug Use History: None Reported - Past Family History Mother Family Medical History: Diabetes Mellitus, Hypertension Father Family Medical History: No Reported History General Exam Limitations: no limitations General appearance: alert, in distress Head exam: Present: atraumatic, normocephalic Eye exam: Present: normal appearance. Absent: scleral icterus, conjunctival injection Neck exam: Present: normal inspection Respiratory exam: Present: respiratory distress (Mild tachypnea), wheezes, prolonged expiratory. Absent: rales, rhonchi, stridor, accessory muscle use Cardiovascular Exam: Present: regular rate, normal rhythm, normal heart sounds. Absent: systolic murmur, diastolic murmur, rubs, gallop GI/Abdominal exam: Present: soft. Absent: distended, tenderness, guarding, rebound, rigid, mass Extremities exam: Present: normal inspection, normal capillary refill. Absent: pedal edema, calf tenderness Back exam: Present: normal inspection. Absent: CVA tenderness (R), CVA tenderness (L) Neurological exam: Present: alert Skin exam: Present: warm, dry, intact, normal color. Absent: rash Course Vital Signs 11/09/22 11/09/22 11/09/22 20:49 23:17 23:51 Temperature 98 F Pulse Rate 89 92 87 Respiratory 24 18 Rate Blood Pressure 141/96 135/107 O2 Sat by Pulse 96 93 L Oximetry 11/09/22 11/10/22 23:58 01:15 Temperature Pulse Rate 86 89 Respiratory 18 Rate Blood Pressure 124/77 O2 Sat by Pulse 92 L Oximetry Medical Decision Making - Medical Decision Making This patient is 57-year-old woman with history of COPD presenting with history and physical exam consistent with exacerbation of COPD. The patient has chest x-ray which I interpreted as not showing acute infiltrate, congestive heart failure or pneumothorax. There are changes consistent with COPD The patient has steroid and nebulized medications and is feeling much better and does request to go home. Given her appearance on arrival I did offer admission but she is feeling markedly better and would like to go home. We discussed appropriate further care and follow-up as well as return parameters. Was pt. sent in by a medical professional or institution (Dr., PA, ACCOUNTS PAYABLE REPRESENTATIVE, urgent care, hospital, or senior care...) When possible be specific @ -[No] Did you speak to anyone other than the patient for history (EMS, parent, family, police, friend...)? What history was obtained from this source @ -[No] Did you review nursing and triage notes (agree or disagree)? Why? @ -[I reviewed and agree with nursing and triage notes] Were old charts reviewed (outside hosp., previous admission, EMS record, old EKG, old radiological studies, urgent care reports/EKG's, senior care records)? Report findings @ -[old charts were reviewed] Differential Diagnosis (chest pain, altered mental status, abdominal pain women, abdominal pain men, vaginal bleeding, weakness, fever, dyspnea, syncope, headache, dizziness, GI bleed, back pain, seizure, CVA, palpatations, mental health, musculoskeletal)? @ -[Differential Dyspnea: Coronary syndrome, arrhythmia, tamponade, asthma, COPD, pulmonary embolism, pneumonia, pneumothorax, pulmonary effusion, anaphylaxis, diabetic ketoacidosis, flailed chest, pulmonary contusion, diaphragmatic rupture, anemia, neuromuscular, this is not meant to be an all-inclusive list. EKG interpreted by me (3pts min.). @ -[As above] X-rays interpreted by me (1pt min.). @ -[As above CT interpreted by me (1pt min.). @ -[None done] U/S interpreted by me (1pt. min.). @ -[None done] What testing was considered but not performed or refused? (CT, X-rays, U/S, labs)? Why? @ -[None] What meds were considered but not given or refused? Why? @ -[None] Did you discuss the management of the patient with other professionals (professionals i.e. STUART Alarcon, ACCOUNTS PAYABLE REPRESENTATIVE, lab, RT, psych nurse, oncology social worker, sales and service engineer, teacher, court security officer, caseworker intake)? Give summary @ -[No] Was smoking cessation discussed for >3mins.? @ -[No] Was critical care preformed (if so, how long)? @ -[No] Were there social determinants of health that impacted care today? How? (Homelessness, low income, unemployed, alcoholism, drug addiction, transportation, low edu. Level, literacy, decrease access to med. care, senior care, rehab)? @ -[No] Was there de-escalation of care discussed even if they declined (Discuss DNR or withdrawal of care, Hospice)? DNR status @ -[No] What co-morbidities impacted this encounter? (DM, HTN, Smoking, COPD, CAD, Cancer, CVA, ARF, Chemo, Hep., AIDS, mental health diagnosis, sleep apnea, mo rbid obesity)? @ -[None] Was patient admitted / discharged? Hospital course, mention meds given and route, prescriptions, significant lab abnormalities, going to OR and other pertinent info. @ -[Discharged Undiagnosed new problem with uncertain prognosis? @ -[No] Drug Therapy requiring intensive monitoring for toxicity (Heparin, Nitro, Insulin, Cardizem)? @ -[No] Were any procedures done? @ -[No] Diagnosis/symptom? @ -[Acute exacerbation of COPD, uncomplicated Acute, or Chronic, or Acute on Chronic? @ -[default] Uncomplicated (without systemic symptoms) or Complicated (systemic symptoms)? @ -[default] Side effects of treatment? @ -[No] Exacerbation, Progression, or Severe Exacerbation? @ -[No] Poses a threat to life or bodily function? How? (Chest pain, USA, RI, pneumonia, PE, COPD, DKA, ARF, appy, cholecystitis, CVA, Diverticulitis, Homicidal, Suicidal, threat to staff... and all critical care pts) @ -[No] - Lab Data Result diagrams: 11/09/22 21:29 11/09/22 21:29 Lab Results 11/09/22 11/09/22 11/09/22 Range/Units 21:29 21:29 21:29 WBC 13.1 H (3.8-10.6) k/uL RBC 4.94 (3.80-5.40) m/uL Hgb 14.5 (11.4-16.0) gm/dL Hct 43.9 (34.0-46.0) % MCV 88.8 (80.0-100.0) fL MCH 29.3 (25.0-35.0) pg MCHC 33.0 (31.0-37.0) g/dL RDW 16.3 H (11.5-15.5) % Plt Count 180 (150-450) k/uL MPV 9.0 Neutrophils % 74 % Lymphocytes % 18 % Monocytes % 5 % Eosinophils % 2 % Basophils % 0 % Neutrophils # 9.7 H (1.3-7.7) k/uL Lymphocytes # 2.4 (1.0-4.8) k/uL Monocytes # 0.7 (0-1.0) k/uL Eosinophils # 0.2 (0-0.7) k/uL Basophils # 0.1 (0-0.2) k/uL Hyperchromasia Slight Poikilocytosis Slight Anisocytosis Slight PT 74.4 H (9.0-12.0) sec INR 7.4 H* (<1.2) APTT 39.6 H (22.0-30.0) sec Sodium 136 L (137-145) mmol/L Potassium 4.0 (3.5-5.1) mmol/L Chloride 105 (98-107) mmol/L Carbon Dioxide 26 (22-30) mmol/L Anion Gap 5 mmol/L BUN 18 H (7-17) mg/dL Creatinine 0.67 (0.52-1.04) mg/dL Est GFR (CKD-EPI)AfAm >90 (>60 ml/min/1.73 sqM) Est GFR (CKD-EPI)NonAf >90 (>60 ml/min/1.73 sqM) Glucose 84 (74-99) mg/dL Plasma Lactic Acid Carlos Eduardo (0.7-2.0) mmol/L Calcium 8.8 (8.4-10.2) mg/dL Total Bilirubin 0.9 (0.2-1.3) mg/dL AST 26 (14-36) U/L ALT 36 H (4-34) U/L Alkaline Phosphatase 87 (38-126) U/L Troponin I (0.000-0.034) ng/mL Total Protein 6.4 (6.3-8.2) g/dL Albumin 4.0 (3.5-5.0) g/dL Influenza Type A (PCR) (Not Detectd) Influenza Type B (PCR) (Not Detectd) RSV (PCR) (Not Detectd) SARS-CoV-2 (PCR) (Not Detectd) 11/09/22 11/09/22 11/09/22 Range/Units 21:29 21:29 22:02 WBC (3.8-10.6) k/uL RBC (3.80-5.40) m/uL Hgb (11.4-16.0) gm/dL Hct (34.0-46.0) % MCV (80.0-100.0) fL MCH (25.0-35.0) pg MCHC (31.0-37.0) g/dL RDW (11.5-15.5) % Plt Count (150-450) k/uL MPV Neutrophils % % Lymphocytes % % Monocytes % % Eosinophils % % Basophils % % Neutrophils # (1.3-7.7) k/uL Lymphocytes # (1.0-4.8) k/uL Monocytes # (0-1.0) k/uL Eosinophils # (0-0.7) k/uL Basophils # (0-0.2) k/uL Hyperchromasia Poikilocytosis Anisocytosis PT (9.0-12.0) sec INR (<1.2) APTT (22.0-30.0) sec Sodium (137-145) mmol/L Potassium (3.5-5.1) mmol/L Chloride (98-107) mmol/L Carbon Dioxide (22-30) mmol/L Anion Gap mmol/L BUN (7-17) mg/dL Creatinine (0.52-1.04) mg/dL Est GFR (CKD-EPI)AfAm (>60 ml/min/1.73 sqM) Est GFR (CKD-EPI)NonAf (>60 ml/min/1.73 sqM) Glucose (74-99) mg/dL Plasma Lactic Acid Carlos Eduardo 1.1 (0.7-2.0) mmol/L Calcium (8.4-10.2) mg/dL Total Bilirubin (0.2-1.3) mg/dL AST (14-36) U/L ALT (4-34) U/L Alkaline Phosphatase (38-126) U/L Troponin I <0.012 (0.000-0.034) ng/mL Total Protein (6.3-8.2) g/dL Albumin (3.5-5.0) g/dL Influenza Type A (PCR) Not Detected (Not Detectd) Influenza Type B (PCR) Not Detected (Not Detectd) RSV (PCR) Not Detected (Not Detectd) SARS-CoV-2 (PCR) Not Detected (Not Detectd) - EKG Data -: EKG Interpreted by Me Interpretation: other (ECG reveals a paced rhythm rate 84 bpm) Disposition Clinical Impression: COPD exacerbation, Coumadin toxicity Disposition: HOME SELF-CARE Condition: Fair Instructions (If sedation given, give patient instructions): COPD (Chronic Obstructive Pulmonary Disease) (ED) Additional Instructions: We discussed, do not take your Coumadin today or tomorrow. Follow with your physician to change your dosing. Prescriptions: predniSONE [Deltasone] 20 mg PO BID #8 tab Is patient prescribed a controlled substance at d/c from ED?: No Referrals: Daniel Mosqueda MD [Primary Care Provider] - 1-2 days
[2022-11-09 21:59] LABS: Anisocytosis Slight; Basophils # (A) 0.1 k/uL (0-0.2); Basophils % (A) 0 %; Eosinophils # (A) 0.2 k/uL (0-0.7); Eosinophils % (A) 2 %; HCT 43.9 % (34.0-46.0); HGB 14.5 gm/dL (11.4-16.0); Hyperchromasia Slight; Lymphocytes # (A) 2.4 k/uL (1.0-4.8); Lymphocytes % (A) 18 %; MCH 29.3 pg (25.0-35.0); MCV 88.8 fL (80.0-100.0); Monocytes # (A) 0.7 k/uL (0-1.0); Monocytes % (A) 5 %; Neutrophils # (A) 9.7 k/uL (1.3-7.7); Neutrophils % (A) 74 %; Platelet Count 180 k/uL (150-450); Poikilocytosis Slight; RBC 4.94 m/uL (3.80-5.40); RDW 16.3 % (11.5-15.5); WBC 13.1 k/uL (3.8-10.6)
[2022-11-09 22:18] LABS: Partial Thromboplastin Time 39.6 sec (22.0-30.0); Prothrombin Time 74.4 sec (9.0-12.0)
--- NOTE | 2022-11-09 22:19 | XR ---
EXAMINATION TYPE: XR chest 2V DATE OF EXAM: 11/09/2022 COMPARISON: Chest x-ray 15 days ago. HISTORY: Difficulty in breathing. TECHNIQUE: Frontal and lateral views of the chest are obtained. FINDINGS: There is chronic emphysematous change bilaterally without suspicious new focal air space o pacity, pleural effusion, or pneumothorax seen. The cardiac silhouette size is stable and within nor mal limits. Multi lead pacemaker is redemonstrated. The osseous structures are intact. IMPRESSION: Chronic emphysematous changes without acute pulmonary process. No significant change fro m most recent prior x-ray.
[2022-11-09 22:24] LABS: ALT 36 U/L (4-34); AST 26 U/L (14-36); African American GFR (CKD) >90 (>60 ml/min/1.73 sqM); Alkaline Phosphatase 87 U/L (38-126); Anion Gap 5 mmol/L; Blood Urea Nitrogen 18 mg/dL (7-17); Calcium 8.8 mg/dL (8.4-10.2); Carbon Dioxide 26 mmol/L (22-30); Chloride 105 mmol/L (98-107); Glucose 84 mg/dL (74-99); Non-African American GFR(CKD) >90 (>60 ml/min/1.73 sqM); Sodium 136 mmol/L (137-145); Total Bilirubin 0.9 mg/dL (0.2-1.3); Total Protein 6.4 g/dL (6.3-8.2)
[2022-11-09 22:49] LABS: INR 7.4 (<1.2)
[2022-11-09] MEDS ORDERED: IPRATROPIUM-ALBUTEROL 3 ML NEB INHALATION STA (23:01)
[2022-11-09] MEDS ORDERED: predniSONE 20 MG TAB PO STA (23:01)
[2022-11-09] MEDS ORDERED: PHYTONADIONE ORAL 5 MG/5 ML ORAL.SYRG PO ONE (23:15)
[2022-11-09 23:18] VITALS: RESP 18
[2022-11-09] MEDS ORDERED: ONDANSETRON 4 MG/2 ML VIAL IVP STA (23:19)
[2022-11-10 02:21] VITALS: BP 124/77; PULSE 89
== END 2022-11-10 01:15 | disposition home or self-care (01) ==
LOC: EC 20:41
DX: J44.1 Chronic obstructive pulmonary disease with (acute) exacerbation (principal); T45.515A Adverse effect of anticoagulants, initial encounter; I10 Essential (primary) hypertension; I25.2 Old myocardial infarction; E78.5 Hyperlipidemia, unspecified; F32.A Depression, unspecified; F41.9 Anxiety disorder, unspecified; Z20.822 Contact with and (suspected) exposure to COVID-19; Z79.01 Long term (current) use of anticoagulants; Z79.899 Other long term (current) drug therapy; Z86.711 Personal history of pulmonary embolism; Z87.891 Personal history of nicotine dependence; Z88.5 Allergy status to narcotic agent; Z95.810 Presence of automatic (implantable) cardiac defibrillator
CPT/HCPCS: 36415; 94640; 93005; 80053; 83605; 84484; 85025; 85610; 85730; 87636; 71046; 99285; 96374; J2405; J7512

== ENCOUNTER 2022-11-11 12:31 | Emergency (ER) | payer MEDICARE ==
[2022-11-11 12:45] VITALS: TEMP 98.3
[2022-11-11] MEDS ORDERED: SODIUM CHLORIDE 0.9% 500 ML 500 ML IV STA (13:15)
[2022-11-11] MEDS ORDERED: methylPREDNISolone SOD SUCCI 125 MG/2 ML VIAL IV STA (13:15)
[2022-11-11] MEDS ORDERED: IPRATROPIUM-ALBUTEROL 3 ML NEB INHALATION STA ×2 (13:15→16:03)
[2022-11-11] MEDS ORDERED: diphenhydrAMINE 50 MG/ML 1 ML VIAL IVP STA (13:16)
[2022-11-11] MEDS ORDERED: PROCHLORPERAZINE INJ 10 MG/2 ML VIAL IVP STA (13:16)
--- NOTE | 2022-11-11 13:26 | ED ---
General Adult HPI - General Chief complaint: Shortness of Breath Stated complaint: SOB Time Seen by Provider: 11/11/22 13:08 Source: patient, RN notes reviewed, old records reviewed Mode of arrival: wheelchair Limitations: no limitations - History of Present Illness Initial comments: Patient is a 57-year-old female with past medical history remarkable for CHF, COPD, hypertension, PE on Coumadin, AICD defibrillator in place, who presents to the emergency department complaining of headache, weakness, any for the last 2-3 days. Was evaluated 2 days ago for similar complaints. Found to have a supratherapeutic INR and discharged home with a COPD exacerbation. Presents today complaining of worsening headache, as well as the above complaints. Denie s any chest pain, nausea, vomiting, abdominal pain. Denies any sick contacts. Denies any productive cough. Endorses exertional dyspnea but no evidence of worsening orthopnea, PND. Denies any lower extremity edema. Has been compliant with medications. No numbness, weakness. No other acute complaints at this time. Presents for further evaluation at this time. States this is similar presentation to most recent ER visits. Both times diagnosed with COPD. Denies productive cough. - Related Data Home Medications Medication Instructions Recorded Confirmed Spironolactone [Aldactone] 25 mg PO W/SUPPER 08/15/20 11/11/22 Amiodarone [Cordarone] 200 mg PO DAILY 06/20/21 11/11/22 Atorvastatin [Lipitor] 10 mg PO W/SUPPER 06/20/21 11/11/22 Warfarin Sodium [Jantoven] 7.5 mg PO W/SUPPER 06/20/21 11/11/22 Cholecalciferol [Vitamin D3 (125 125 mcg PO DAILY 09/05/22 11/11/22 Mcg = 5000 Iu)] Ipratropium-Albuterol Nebulize 3 ml INHALATION RT-QID PRN 09/05/22 11/11/22 [Duoneb 0.5 mg-3 mg/3 ml Soln] Multivitamins, Thera [Multivitamin 1 tab PO DAILY 09/05/22 11/11/22 (formulary)] ALPRAZolam [Xanax] 0.5 mg PO TID PRN 10/25/22 11/11/22 Previous Rx's Medication Instructions Recorded carvediloL [Coreg] 6.25 mg PO BID-W/MEALS #180 tab 04/08/20 lisinopriL [Zestril] 2.5 mg PO DAILY #90 tab 04/08/20 Budesonide-Formot 160-4.5 Mcg 2 puff INHALATION RT-BID 30 Days 10/28/22 [Symbicort 160-4.5 Mcg Inhaler] #1 dispenser Ipratropium-Albuterol Nebulize 3 ml INHALATION RT-QID each 10/28/22 [Duoneb 0.5 mg-3 mg/3 ml Soln] predniSONE [Deltasone] 20 mg PO BID #8 tab 11/10/22 Albuterol Inhaler [Ventolin Hfa 2 puff INHALATION QID #8 gm 11/11/22 Inhaler] Azithromycin [Zithromax] 250 mg PO DAILY 4 Days #4 tab 11/11/22 predniSONE [Deltasone] 40 mg PO DAILY 5 Days #10 tab 11/11/22 Allergies Allergy/AdvReac Type Severity Reaction Status Date / Time hydromorphone [From Dilaudid] AdvReac Nausea & Verified 11/11/22 15:23 Vomiting Review of Systems ROS Statement: Those systems with pertinent positive or pertinent negative responses have been documented in the HPI. Review of Systems: CONST: Denies fever EYES: Denies blurry vision ENT: Denies nasal congestion C/V: Denies Chest pain RESP: Endorses shortness of breath GI: Denies abdominal pain : Denies dysuria SKIN: Denies rash. MSK: Denies joint pain. NEURO: Endorses headache ROS Other: All systems not noted in ROS Statement are negative. Past Medical History Past Medical History: Chest Pain / Angina, COPD, Hyperlipidemia, Hypertension, Myocardial Infarction ([place]), Pneumonia, Pulmonary Embolus (PE) Additional Past Medical History / Comment(s): cardiomyopathy, PE (6yrs ago), brain aneursym [place] Last Myocardial Infarction Date:: 5 yrs ago History of Any Multi-Drug Resistant Organisms: None Reported Past Surgical History: AICD, Cholecystectomy, Heart Catheterization Additional Past Surgical History / Comment(s): AICD defibrillator placed 6 years ago Past Anesthesia/Blood Transfusion Reactions: No Reported Reaction Type of Cardiac Device: AICD Device Placement Date:: 2015 Past Psychological History: Anxiety, Depression Smoking Status: Former smoker Past Alcohol Use History: None Reported Past Drug Use History: None Reported - Past Family History Mother Family Medical History: Diabetes Mellitus, Hypertension Father Family Medical History: No Reported History General Exam - General Exam Comments Initial Comments: General: Appears in no acute distress. HEAD: Normal with no signs of head trauma. EYES: PERRLA, EOMI, conjunctiva normal, no discharge. ENT: Hearing grossly intact, normal oropharynx. RESPIRATORY: Bilateral end expiratory wheezing. Normoxic on home 2 L nasal cannula. C/V: Regular rate and rhythm. S1 and S2 auscultated, no edema, peripheral pulses 2+ and intact throughout ABD: Abd is soft, nontender, nondistended EXT: Normal range of motion, no obvious deformity SKIN: No rashes or lesions observed on exposed skin. NEURO: Alert and oriented x 4. Cranial nerves II-XII intact. No focal sensory or strength deficits. NIH is 0. GCS 15. Limitations: no limitations Course Vital Signs 11/11/22 11/11/22 11/11/22 12:42 13:35 14:50 Temperature 98.3 F Pulse Rate 76 80 76 Respiratory 20 16 16 Rate Blood Pressure 124/72 116/69 136/88 O2 Sat by Pulse 95 96 96 Oximetry 11/11/22 11/11/22 11/11/22 14:51 14:59 16:13 Temperature Pulse Rate 71 76 81 Respiratory 18 18 18 Rate Blood Pressure 115/64 O2 Sat by Pulse 94 L Oximetry 11/11/22 11/11/22 11/11/22 16:15 16:21 17:02 Temperature Pulse Rate 77 79 85 Respiratory 18 18 18 Rate Blood Pressure 99/62 O2 Sat by Pulse 95 Oximetry Medical Decision Making - Medical Decision Making Was pt. sent in by a medical professional or institution (, PA, COATING MIXER SUPERVISOR, urgent care, hospital, or jail...) When possible be specific @ -No Did you speak to anyone other than the patient for history (EMS, parent, family, police, friend...)? What history was obtained from this source @ -No Did you review nursing and triage notes (agree or disagree)? Why? @ -I reviewed and agree with nursing and triage notes Were old charts reviewed (outside hosp., previous admission, EMS record, old EKG, old radiological studies, urgent care reports/EKG's, jail records)? Report findings @ -Old charts reviewed from September 2022. Differential Diagnosis (chest pain, altered mental status, abdominal pain women, abdominal pain men, vaginal bleeding, weakness, fever, dyspnea, syncope, headache, dizziness, GI bleed, back pain, seizure, CVA, palpatations, mental health, musculoskeletal)? @ -Differential Dyspnea: Coronary syndrome, arrhythmia, tamponade, asthma, COPD, pulmonary embolism, pneumonia, pneumothorax, pulmonary effusion, anaphylaxis, diabetic ketoacidosis, flailed chest, pulmonary contusion, diaphragmatic rupture, anemia, neuromuscular, this is not meant to be an all-inclusive list. Differential Headache: Migraine, tension, cluster, carbon monoxide, central venous thrombosis, pension karma temporal arteritis, acute closure glaucoma, intercranial hemorrhage, mastoiditis, sinusitis, head injury, this is not meant to be an all-inclusive list. EKG interpreted by me (3pts min.). @ -As above X-rays interpreted by me (1pt min.). @ -Chest x-ray reveals no obvious acute cardio pulmonary process. CT interpreted by me (1pt min.). @ -Brain CT and CTA of the brain revealed no obvious acute process. CT brain does show findings consistent with chronic suprasellar mass that appears to be a pituitary adenoma. There are also old lesions on the left. No other acute findings. U/S interpreted by me (1pt. min.). @ -None done What testing was considered but not performed or refused? (CT, X-rays, U/S, labs)? Why? @ -None What meds were considered but not given or refused? Why? @ -None Did you discuss the management of the patient with other professionals (professionals i.e. , PA, COATING MIXER SUPERVISOR, lab, RT, psych nurse, psychiatric social worker supervisor, blunger machine operator, teacher, systems support officer, shelter case manager)? Give summary @ -No Was smoking cessation discussed for >3mins.? @ -No Was critical care preformed (if so, how long)? @ -No Were there social determinants of health that impacted care today? How? (Homelessness, low income, unemployed, alcoholism, drug addiction, transportation, low edu. Level, literacy, decrease access to med. care, snf, rehab)? @ -No Was there de-escalation of care discussed even if they declined (Discuss DNR or withdrawal of care, Hospice)? DNR status @ -No What co-morbidities impacted this encounter? (DM, HTN, Smoking, COPD, CAD, Cancer, CVA, ARF, Chemo, Hep., AIDS, mental health diagnosis, sleep apnea, morbid obesity)? @ -Patient on Coumadin, COPD, CAD, AICD Was patient admitted / discharged? Hospital course, mention meds given and rout e, prescriptions, significant lab abnormalities, going to OR and other pertinent info. @ -Based on the patient's presentation and physical exam, do. She is having a COPD exacerbation but cannot rule out other cardiopulmonary etiology at this time such as infection. Did have a supratherapeutic INR the other day greater than 7, and presents today complaining of a headache. No the worst headache of her life but is a bad headache that has been present for the last 2 days. No known trauma. I did recommend we obtain CT imaging the brain to evaluate for possible bleeding. She was in agreement this plan. She'll be symptomatically treated with IV steroids and a breathing treatment. She'll also receive a small fluid bolus as well as Compazine and Benadryl for the headache. Patient was in agreement this plan. Vital signs within except for limits on her baseline 2 L nasal cannula oxygen. Patient's imaging is unremarkable. Chronic lesions seen on the brain but no acute bleed. Patient's labs are remarkable for a subtherapeutic INR now of 1.4. Carbon dioxide is elevated to 34. Troponin undetectable. BNP within normal limits. Remainder the labs are within acceptable limits. On reevaluation, patient is asking to go home. We did review her labs. She'll be given one more additional breathing treatment. She has been ambulating throughout the department. States she feels improved. We discussed her workup. She will continue her Coumadin use and will follow up with her doctor. I did offer admission for COPD exacerbation which she declines. Strict return precautions discussed. She will be continued on oral prednisone at home as well as started on a Z-Zeferino. We discussed her CT brain results. She expressed understanding. Discussed likely need for MRI for further monitoring of her intracranial findings. I instructed the patient to follow up with their PCP in the next 1-3 days. I explained that the patient should return to the emergency department if they experience any worsening symptoms. Strict return precautions were discussed with the patient. The patient expressed understanding of these instructions. I answered all questions that the patient had. The patient was discharged home in good condition with their prescriptions and follow up information. Undiagnosed new problem with uncertain prognosis? @ -No Drug Therapy requiring intensive monitoring for toxicity (Heparin, Nitro, Insulin, Cardizem)? @ -No Were any procedures done? @ -No Diagnosis/symptom? @ -COPD Acute, or Chronic, or Acute on Chronic? @ -Acute on chronic Uncomplicated (without systemic symptoms) or Complicated (systemic symptoms)? @ -Complicated Side effects of treatment? @ -none Exacerbation, Progression, or Severe Exacerbation] @ -Exacerbation Poses a threat to life or bodily function? @ -no Diagnosis/symptom? @ -Headache, resolved Acute, or Chronic, or Acute on Chronic? @ -Acute on chronic Uncomplicated (without systemic symptoms) or Complicated (systemic symptoms)? @ -Uncomplicated Side effects of treatment? @ -none Exacerbation, Progression, or Severe Exacerbation] @ -no Poses a threat to life or bodily function? @ -no Diagnosis/symptom? @ -Suprasellar mass, suspect pituitary adenoma Acute, or Chronic, or Acute on Chronic? @ -Acute Uncomplicated (without systemic symptoms) or Complicated (systemic symptoms)? @ -Uncomplicated Side effects of treatment? @ -none Exacerbation, Progression, or Severe Exacerbation] @ -no Poses a threat to life or bodily function? @ -no - Lab Data Result diagrams: 11/11/22 13:18 11/11/22 13:18 Lab Results 11/11/22 11/11/22 11/11/22 Range/Units 13:09 13:18 13:18 WBC 8.1 (3.8-10.6) k/uL RBC 4.71 (3.80-5.40) m/uL Hgb 13.9 (11.4-16.0) gm/dL Hct 41.1 (34.0-46.0) % MCV 87.3 (80.0-100.0) fL MCH 29.4 (25.0-35.0) pg MCHC 33.7 (31.0-37.0) g/dL RDW 16.3 H (11.5-15.5) % Plt Count 167 (150-450) k/uL MPV 9.1 Neutrophils % 68 % Lymphocytes % 24 % Monocytes % 6 % Eosinophils % 2 % Basophils % 0 % Neutrophils # 5.6 (1.3-7.7) k/uL Lymphocytes # 1.9 (1.0-4.8) k/uL Monocytes # 0.5 (0-1.0) k/uL Eosinophils # 0.1 (0-0.7) k/uL Basophils # 0.0 (0-0.2) k/uL Poikilocytosis Slight Anisocytosis Slight PT (9.0-12.0) sec INR (<1.2) APTT (22.0-30.0) sec Sodium 140 (137-145) mmol/L Potassium 4.1 (3.5-5.1) mmol/L Chloride 101 (98-107) mmol/L Carbon Dioxide 34 H (22-30) mmol/L Anion Gap 5 mmol/L BUN 11 (7-17) mg/dL Creatinine 0.76 (0.52-1.04) mg/dL Est GFR (CKD-EPI)AfAm >90 (>60 ml/min/1.73 sqM) Est GFR (CKD-EPI)NonAf 87 (>60 ml/min/1.73 sqM) Glucose 95 (74-99) mg/dL Calcium 8.8 (8.4-10.2) mg/dL Total Bilirubin 0.5 (0.2-1.3) mg/dL AST 23 (14-36) U/L ALT 36 H (4-34) U/L Alkaline Phosphatase 108 (38-126) U/L Troponin I (0.000-0.034) ng/mL NT-Pro-B Natriuret Pep pg/mL Total Protein 6.3 (6.3-8.2) g/dL Albumin 3.8 (3.5-5.0) g/dL Influenza Type A (PCR) Not Detected (Not Detectd) Influenza Type B (PCR) Not Detected (Not Detectd) RSV (PCR) Not Detected (Not Detectd) SARS-CoV-2 (PCR) Not Detected (Not Detectd) 11/11/22 11/11/22 11/11/22 Range/Units 13:18 13:18 14:30 WBC (3.8-10.6) k/uL RBC (3.80-5.40) m/uL Hgb (11.4-16.0) gm/dL Hct (34.0-46.0) % MCV (80.0-100.0) fL MCH (25.0-35.0) pg MCHC (31.0-37.0) g/dL RDW (11.5-15.5) % Plt Count (150-450) k/uL MPV Neutrophils % % Lymphocytes % % Monocytes % % Eosinophils % % Basophils % % Neutrophils # (1.3-7.7) k/uL Lymphocytes # (1.0-4.8) k/uL Monocytes # (0-1.0) k/uL Eosinophils # (0-0.7) k/uL Basophils # (0-0.2) k/uL Poikilocytosis Anisocytosis PT 14.5 H (9.0-12.0) sec INR 1.4 H (<1.2) APTT 24.3 (22.0-30.0) sec Sodium (137-145) mmol/L Potassium (3.5-5.1) mmol/L Chloride (98-107) mmol/L Carbon Dioxide (22-30) mmol/L Anion Gap mmol/L BUN (7-17) mg/dL Creatinine (0.52-1.04) mg/dL Est GFR (CKD-EPI)AfAm (>60 ml/min/1.73 sqM) Est GFR (CKD-EPI)NonAf (>60 ml/min/1.73 sqM) Glucose (74-99) mg/dL Calcium (8.4-10.2) mg/dL Total Bilirubin (0.2-1.3) mg/dL AST (14-36) U/L ALT (4-34) U/L Alkaline Phosphatase (38-126) U/L Troponin I <0.012 (0.000-0.034) ng/mL NT-Pro-B Natriuret Pep 127 pg/mL Total Protein (6.3-8.2) g/dL Albumin (3.5-5.0) g/dL Influenza Type A (PCR) (Not Detectd) Influenza Type B (PCR) (Not Detectd) RSV (PCR) (Not Detectd) SARS-CoV-2 (PCR) (Not Detectd) - EKG Data -: EKG Interpreted by Me EKG Comments: 12-lead Electrocardiogram Interpretation Note EKG was reviewed and interpreted by myself. 12-lead ECG performed at 1302 is interpreted by me as revealing ventricularly paced rhythm at a rate of at 83 beats per minute. Abnormal axis. SD interval is 98 ms, QRS duration is 174 ms, QTc is 479 ms.. There were no ST or T wave abnormalities to suggest myocardial ischemia or injury. R wave progression across the precordium was satisfactory. By my interpretation this EKG is non-diagnostic for acute ischemia. When compared with With EKG from 11/09/2022, no significant change. Disposition Clinical Impression: Bronchitis, COPD exacerbation, Headache, Suprasellar mass Disposition: HOME SELF-CARE Condition: Good Instructions (If sedation given, give patient instructions): Acute Bronchitis (ED) Prescriptions: predniSONE [Deltasone] 40 mg PO DAILY 5 Days #10 tab Albuterol Inhaler [Ventolin Hfa Inhaler] 2 puff INHALATION QID #8 gm Azithromycin [Zithromax] 250 mg PO DAILY 4 Days #4 tab Is patient prescribed a controlled substance at d/c from ED?: No Referrals: Daniel Mosqueda MD [Primary Care Provider] - 1-2 days Time of Disposition: 16:35
[2022-11-11 13:53] LABS: Anisocytosis Slight; Basophils % (A) 0 %; Eosinophils # (A) 0.1 k/uL (0-0.7); Eosinophils % (A) 2 %; HCT 41.1 % (34.0-46.0); HGB 13.9 gm/dL (11.4-16.0); Lymphocytes # (A) 1.9 k/uL (1.0-4.8); Lymphocytes % (A) 24 %; MCH 29.4 pg (25.0-35.0); MCHC 33.7 g/dL (31.0-37.0); MCV 87.3 fL (80.0-100.0); Mean Platelet Volume 9.1; Monocytes # (A) 0.5 k/uL (0-1.0); Monocytes % (A) 6 %; Neutrophils # (A) 5.6 k/uL (1.3-7.7); Neutrophils % (A) 68 %; Platelet Count 167 k/uL (150-450); Poikilocytosis Slight; RBC 4.71 m/uL (3.80-5.40); RDW 16.3 % (11.5-15.5); WBC 8.1 k/uL (3.8-10.6)
[2022-11-11 14:12] LABS: INR 1.4 (<1.2); Partial Thromboplastin Time 24.3 sec (22.0-30.0); Prothrombin Time 14.5 sec (9.0-12.0)
--- NOTE | 2022-11-11 14:17 | CT ---
EXAMINATION TYPE: CT angio head neck DATE OF EXAM: 11/11/2022 HISTORY: weakness and headache. COMPARISON: Prior CT October 31, 2021 CT DLP: 807.8 mGycm. Automated Exposure Control for Dose Reduction was Utilized. TECHNIQUE: CTA scan of the head and neck is performed with IV Contrast, patient injected with 65 mL of Isovue 370, axial images are obtained, coronal and sagittal reformatted images are reviewed. 3D re constructed images are created on an independent workstation and reviewed. FINDINGS: Carotid/Vascular Structures: Normal three-vessel origin from aortic arch redemonstrated. No significa nt plaque or stenosis along the common carotid arteries bilaterally. Tortuous medial course redemonst rated. No significant plaque or stenosis at carotid bulb level bilaterally. Patent external carotid a rteries bilaterally without significant stenosis redemonstrated. Vertebral arteries are codominant and patent to the basilar junction. Hypoplastic left posterior comm unicating artery is redemonstrated. Patent small caliber right posterior communicating artery is rede monstrated. No significant focal stenosis or aneurysm in the posterior circulation. Images of the ant erior circulation show patent anterior communicating artery image 30 Series 406. There is no significant focal stenosis or Aneurysm in the anterior circulation. The tiny 1 to 2 mm suggestive aneurysm suprasellar region right internal carotid artery on prior report is not clearly identified on this exam. Other: Moderate emphysematous change in the visualized lungs is redemonstrated. Overlying left chest wall pacemaker is partially imaged similar to prior. Heterogeneous thyroid again seen. IMPRESSION: No significant stenosis identified. NASCET criteria was used in interpretation of this exam?
[2022-11-11 14:19] LABS: ALT 36 U/L (4-34); AST 23 U/L (14-36); African American GFR (CKD) >90 (>60 ml/min/1.73 sqM); Albumin 3.8 g/dL (3.5-5.0); Alkaline Phosphatase 108 U/L (38-126); Anion Gap 5 mmol/L; Blood Urea Nitrogen 11 mg/dL (7-17); Calcium 8.8 mg/dL (8.4-10.2); Carbon Dioxide 34 mmol/L (22-30); Chloride 101 mmol/L (98-107); Glucose 95 mg/dL (74-99); Non-African American GFR(CKD) 87 (>60 ml/min/1.73 sqM); Potassium 4.1 mmol/L (3.5-5.1); Sodium 140 mmol/L (137-145); Total Bilirubin 0.5 mg/dL (0.2-1.3); Total Protein 6.3 g/dL (6.3-8.2)
--- NOTE | 2022-11-11 14:19 | XR ---
EXAMINATION TYPE: XR chest 2V DATE OF EXAM: 11/11/2022 COMPARISON: Chest x-ray 2 days ago HISTORY: Difficulty in breathing. TECHNIQUE: Frontal and lateral views of the chest are obtained. FINDINGS: Background chronic emphysematous change redemonstrated. There is no suspicious new focal a ir space opacity, pleural effusion, or pneumothorax seen. The cardiac silhouette size is stable and enlarged with multiple lead pacemaker redemonstrated. The osseous structures are demineralized. IMPRESSION: Cardiomegaly and chronic emphysematous change without acute pulmonary process. No signif icant change from most recent x-ray.
--- NOTE | 2022-11-11 14:23 | CT ---
EXAMINATION TYPE: CT brain wo con DATE OF EXAM: 11/11/2022 COMPARISON: 11/11/2022, 08/30/2020 HISTORY: weakness CT DLP: 1105.6 mGycm Automated exposure control for dose reduction was used. FINDINGS: The large suprasellar mass measuring greater than 1.6 x 2.2 cm a most likely in the basis of a pituit reinaldo macroadenoma. There is no diagnostic evidence of acute hemorrhage mass effect or midline shift. Low attenuation whi te matter nonspecific and most likely versus remote microvascular ischemia. Ventricular system compatible with the patient's age. Calvarium intact. Orbits are symmetric. Mild ch anges of chronic sinusitis. Small lucency inner table lesion left parietal calvarium stable. Also is demineralization of the left temporal bone near the left occipital junction. This also is stable. Low -lying cerebellar tonsils. IMPRESSION: 1. A 1.6 X 2.2 CM SUPRASELLAR MASS. 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 THROMBOSED ANEURYSM IS NOT ENTIRELY EXCLUDED BUT FELT LESS LIKELY AND COULD BE CONFIRMED WIT H MRI OF THE BRAIN\SELLA TURCICA. 2. LOW-LYING CEREBELLAR TONSILS CAN BE ASSOCIATED WITH CHIARI MALFORMATION STABLE FROM PRIOR EXAM. 3. THERE ARE 2 LEFT-SIDED CRANIAL LESIONS. THE LEFT TEMPORAL OCCIPITAL JUNCTION LESION APPEARS STABLE DATING BACK TO 2013 AND THEREFORE LIKELY IS BENIGN. THE LEFT PARIETAL INNER TABLE LESION IS NO TOOTH OUT AND 14 BUT STABLE FROM PRIOR EXAM AT 2023 AND IS FAVORED TO BE BENIGN BUT ALSO COULD BE ASSESSED WITH MRI..
[2022-11-11 16:16] VITALS: RESP 18
[2022-11-11] MEDS ORDERED: AZITHROMYCIN 500 MG TAB PO STA (16:54)
[2022-11-11 17:06] VITALS: BP 99/62; PULSE 85
== END 2022-11-11 17:14 | disposition home or self-care (01) ==
LOC: EC 12:31
DX: J44.1 Chronic obstructive pulmonary disease with (acute) exacerbation (principal); J40 Bronchitis, not specified as acute or chronic; R51.9 Headache, unspecified; D49.6 Neoplasm of unspecified behavior of brain; E78.5 Hyperlipidemia, unspecified; I11.0 Hypertensive heart disease with heart failure; I50.9 Heart failure, unspecified; I25.2 Old myocardial infarction; F41.9 Anxiety disorder, unspecified; F32.A Depression, unspecified; Z87.891 Personal history of nicotine dependence; Z88.5 Allergy status to narcotic agent; Z79.02 Long term (current) use of antithrombotics/antiplatelets; Z79.899 Other long term (current) drug therapy; Z20.822 Contact with and (suspected) exposure to COVID-19
CPT/HCPCS: 36415; 94640 ×2; 93005; 83880; 80053; 84484; 85025; 85610; 85730; 87636; 71046; 70496; 70450; 70498; 99285; 96374; 96375 ×2; 96361; J1200; J0780; J2930; Q9967

== ENCOUNTER 2022-11-20 09:14 | Emergency (ER) | payer MEDICARE ==
[2022-11-20 09:24] VITALS: TEMP 98.2
[2022-11-20] MEDS ORDERED: SODIUM CHLORIDE 0.9% 500 ML 500 ML IV STA (09:25)
[2022-11-20] MEDS ORDERED: IPRATROPIUM 0.5 MG/2.5 ML NEBU INHALATION STA (09:25)
[2022-11-20] MEDS ORDERED: ALBUTEROL NEBULIZED 2.5 MG/3 ML INHALATION STA (09:25)
[2022-11-20] MEDS ORDERED: methylPREDNISolone SOD SUCCI 125 MG/2 ML VIAL IV STA (09:25)
--- NOTE | 2022-11-20 09:55 | ED ---
General Adult HPI - General Chief complaint: Dizziness Stated complaint: Dizzness, SOB Time Seen by Provider: 11/20/22 09:20 Source: patient, RN notes reviewed, old records reviewed Mode of arrival: ambulatory Limitations: no limitations - History of Present Illness Initial comments: This a 57-year-old female presents emergency Department complaining of a headache and shortness of breath last week per patient states she's been to see her primary medical care doctor and been put on steroids and is not helping. Patient states the headache has been ongoing for a week now she states she has a migraine headache and it's typical of her migraines except is lasting longer. Patient states she had a CAT scan and CTA about a week ago and it did show jessica julio in the pituitary that looks benign. Patient denies any numbness weakness. Patient denies any visual disturbance patient denies any slurred speech. Patient denies any chest pain. Patient denies palpitation. Patient denies any fever chills. Patient denies any swelling to the legs or calf tenderness. - Related Data Home Medications Medication Instructions Recorded Confirmed Spironolactone [Aldactone] 25 mg PO W/SUPPER 08/15/20 11/20/22 Amiodarone [Cordarone] 200 mg PO DAILY 06/20/21 11/20/22 Atorvastatin [Lipitor] 10 mg PO W/SUPPER 06/20/21 11/20/22 Warfarin Sodium [Jantoven] 7.5 mg PO W/SUPPER 06/20/21 11/20/22 Cholecalciferol [Vitamin D3 (125 125 mcg PO DAILY 09/05/22 11/20/22 Mcg = 5000 Iu)] Ipratropium-Albuterol Nebulize 3 ml INHALATION RT-QID PRN 09/05/22 11/20/22 [Duoneb 0.5 mg-3 mg/3 ml Soln] Multivitamins, Thera [Multivitamin 1 tab PO DAILY 09/05/22 11/20/22 (formulary)] ALPRAZolam [Xanax] 0.5 mg PO TID PRN 10/25/22 11/20/22 Albuterol Inhaler [Ventolin Hfa 2 puff INHALATION RT-QID 11/20/22 11/20/22 Inhaler] Butalb/Acetaminophen/Caffeine 1 - 2 cap PO Q4HR PRN 11/20/22 11/20/22 [Fioricet 50-300-40 mg Capsule] Previous Rx's Medication Instructions Recorded carvediloL [Coreg] 6.25 mg PO BID-W/MEALS #180 tab 04/08/20 lisinopriL [Zestril] 2.5 mg PO DAILY #90 tab 04/08/20 Ipratropium-Albuterol Nebulize 3 ml INHALATION RT-QID each 10/28/22 [Duoneb 0.5 mg-3 mg/3 ml Soln] predniSONE [Deltasone] 40 mg PO DAILY #8 tab 11/20/22 Allergies Allergy/AdvReac Type Severity Reaction Status Date / Time hydromorphone [From Dilaudid] AdvReac Nausea & Verified 11/20/22 11:41 Vomiting Review of Systems ROS Statement: Those systems with pertinent positive or pertinent negative responses have been documented in the HPI. ROS Other: All systems not noted in ROS Statement are negative. Past Medical History Past Medical History: Chest Pain / Angina, COPD, Hyperlipidemia, Hypertension, Myocardial Infarction (SD), Pneumonia, Pulmonary Embolus (PE) Additional Past Medical History / Comment(s): cardiomyopathy, PE (6yrs ago), brain aneursym [place] Last Myocardial Infarction Date:: 5 yrs ago History of Any Multi-Drug Resistant Organisms: None Reported Past Surgical History: AICD, Cholecystectomy, Heart Catheterization Additional Past Surgical History / Comment(s): AICD defibrillator placed 6 years ago Past Anesthesia/Blood Transfusion Reactions: No Reported Reaction Type of Cardiac Device: AICD Device Placement Date:: 2015 Past Psychological History: Anxiety, Depression Smoking Status: Former smoker Past Alcohol Use History: None Reported Past Drug Use History: None Reported - Past Family History Mother Family Medical History: Diabetes Mellitus, Hypertension Father Family Medical History: No Reported History General Exam - General Exam Comments Initial Comments: GENERAL: Patient is well-developed and well-nourished. Patient is nontoxic and well-h ydrated and is in mild distress. ENT: Neck is soft and supple. No significant lymphadenopathy is noted. Oropharynx is clear. Moist mucous membranes. Neck has full range of motion without eliciting any pain. EYES: The sclera were anicteric and conjunctiva were pink and moist. Extraocular mov ements were intact and pupils were equal round and reactive to light. Eyelids were unremarkable. PULMONARY: Expiratory wheezing diffusely. CARDIOVASCULAR: There is a regular rate and rhythm without any murmurs gallops or rubs. ABDOMEN: Soft and nontender with normal bowel sounds. No palpable organomegaly was noted. There is no palpable pulsatile mass. SKIN: Skin is clear with no lesions or rashes and otherwise unremarkable. NEUROLOGIC: Patient is alert and oriented x3. Cranial nerves II through XII are grossly intact. Motor and sensory are also intact. Normal speech, volume and content. Symmetrical smile. MUSCULOSKELETAL: Normal extremities with adequate strength and full range of motion. No lower extremity swelling or edema. No calf tenderness. LYMPHATICS: No significant lymphadenopathy is noted PSYCHIATRIC: Normal psychiatric evaluation. Limitations: no limitations Course Vital Signs 11/20/22 11/20/22 11/20/22 09:16 09:23 10:06 Temperature 982 F H 98.2 F Pulse Rate 104 H 104 H Respiratory 22 Rate Blood Pressure 142/82 O2 Sat by Pulse 99 Oximetry 11/20/22 11/20/22 10:17 10:23 Temperature Pulse Rate 111 H 93 Respiratory 20 Rate Blood Pressure 120/93 O2 Sat by Pulse 96 Oximetry Medical Decision Making - Medical Decision Making EKG was interpreted by myself and shows a paced rhythm at 96 bpm MS interval 170 QRS is under 62 QT interval is 411 QTC is 465 per patient's EKG shows no ST segment elevation or depression. Was pt. sent in by a medical professional or institution ([facility], SCHOOL PSYCHOMETRIST, urgent care, hospital, or half-way...) When possible be specific @ -No Did you speak to anyone other than the patient for history (EMS, parent, family, police, friend...)? What history was obtained from this source @ -No Did you review nursing and triage notes (agree or disagree)? Why? @ -I reviewed and agree with nursing and triage notes Were old charts reviewed (outside hosp., previous admission, EMS record, old EKG, old radiological studies, urgent care reports/EKG's, half-way records)? Report findings @ -Prior charts per label compare x-rays Differential Diagnosis (chest pain, altered mental status, abdominal pain women, abdominal pain men, vaginal bleeding, weakness, fever, dyspnea, syncope, headache, dizziness, GI bleed, back pain, seizure, CVA, palpatations, mental health, musculoskeletal)? @ -Differential Dyspnea: Coronary syndrome, arrhythmia, tamponade, asthma, COPD, pulmonary embolism, pneumonia, pneumothorax, pulmonary effusion, anaphylaxis, diabetic ketoacidosis, flailed chest, pulmonary contusion, diaphragmatic rupture, anemia, neuromuscular, this is not meant to be an all-inclusive list. EKG interpreted by me (3pts min.). @ -As above X-rays interpreted by me (1pt min.). @ -Chest x-ray is interpreted by myself is in no acute abnormalities CT interpreted by me (1pt min.). @ -None done U/S interpreted by me (1pt. min.). @ -None done What testing was considered but not performed or refused? (CT, X-rays, U/S, labs)? Why? @ -I did consider CT her head because of her significant headache however she just had a CAT scan and she states at that time she did have a headache. I reviewed those results. What meds were considered but not given or refused? Why? @ -None Did you discuss the management of the patient with other professionals (professionals i.e. , PA, SCHOOL PSYCHOMETRIST, lab, RT, psych nurse, social media community manager, cardiac rehabilitation program director, teacher, police officer booking, case assembler)? Give summary @ -No Was smoking cessation discussed for >3mins.? @ -No Was critical care preformed (if so, how long)? @ -No Were there social determinants of health that impacted care today? How? (Homelessness, low income, unemployed, alcoholism, drug addiction, transportation, low edu. Level, literacy, decrease access to med. care, assisted, rehab)? @ -No Was there de-escalation of care discussed even if they declined (Discuss DNR or withdrawal of care, Hospice)? DNR status @ -No What co-morbidities impacted this encounter? (DM, HTN, Smoking, COPD, CAD, Cancer, CVA, ARF, Chemo, Hep., AIDS, mental health diagnosis, sleep apnea, morbid obesity)? @ -COPD Was patient admitted / discharged? Hospital course, mention meds given and route, prescriptions, significant lab abnormalities, going to OR and other pertinent info. @ -Patient received albuterol and steroids in the emergency department as well as some Compazine and Benadryl and Toradol for the headache. I went back in and reevaluated the patient she stated her breathing was considerably better. Patient states headache is gone away she just would like to get some sleep now. Undiagnosed new problem with uncertain prognosis? @ -No Drug Therapy requiring intensive monitoring for toxicity (Heparin, Nitro, Insulin, Cardizem)? @ -No Were any procedures done? @ -No Diagnosis/symptom? @ -COPD exacerbation Acute, or Chronic, or Acute on Chronic? @ -Acute Uncomplicated (without systemic symptoms) or Complicated (systemic symptoms)? @ -Complicated Side effects of treatment? @ -No Exacerbation, Progression, or Severe Exacerbation? @ -Exacerbation Poses a threat to life or bodily function? How? (Chest pain, [place], SD, pneumonia, PE, COPD, DKA, ARF, appy, cholecystitis, CVA, Diverticulitis, Homicidal, Suicidal, threat to staff... and all critical care pts) @ -No Diagnosis/symptom? @ -Cephalgia Acute, or Chronic, or Acute on Chronic? @ -Acute Uncomplicated (without systemic symptoms) or Complicated (systemic symptoms)? @ -Uncomplicated Side effects of treatment? @ -none Exacerbation, Progression, or Severe Exacerbation] @ -no Poses a threat to life or bodily function? @ -no - Lab Data Result diagrams: 11/20/22 09:30 11/20/22 09:30 Lab Results 11/20/22 11/20/22 11/20/22 Range/Units 09:30 09:30 09:30 WBC 8.4 (3.8-10.6) k/uL RBC 4.68 (3.80-5.40) m/uL Hgb 13.4 (11.4-16.0) gm/dL Hct 41.1 (34.0-46.0) % MCV 87.7 (80.0-100.0) fL MCH 28.6 (25.0-35.0) pg MCHC 32.6 (31.0-37.0) g/dL RDW 16.1 H (11.5-15.5) % Plt Count 169 (150-450) k/uL MPV 8.8 Neutrophils % 69 % Lymphocytes % 22 % Monocytes % 5 % Eosinophils % 3 % Basophils % 0 % Neutrophils # 5.7 (1.3-7.7) k/uL Lymphocytes # 1.8 (1.0-4.8) k/uL Monocytes # 0.4 (0-1.0) k/uL Eosinophils # 0.3 (0-0.7) k/uL Basophils # 0.0 (0-0.2) k/uL Poikilocytosis Slight Anisocytosis Slight PT 30.2 H (9.0-12.0) sec INR 3.1 H (<1.2) APTT 33.4 H (22.0-30.0) sec Sodium 137 (137-145) mmol/L Potassium 4.3 (3.5-5.1) mmol/L Chloride 100 (98-107) mmol/L Carbon Dioxide 30 (22-30) mmol/L Anion Gap 7 mmol/L BUN 10 (7-17) mg/dL Creatinine 0.72 (0.52-1.04) mg/dL Est GFR (CKD-EPI)AfAm >90 (>60 ml/min/1.73 sqM) Est GFR (CKD-EPI)NonAf >90 (>60 ml/min/1.73 sqM) Glucose 107 H (74-99) mg/dL Plasma Lactic Acid Carlos Eduardo (0.7-2.0) mmol/L Calcium 8.7 (8.4-10.2) mg/dL Magnesium 2.0 (1.6-2.3) mg/dL Total Bilirubin 0.4 (0.2-1.3) mg/dL AST 20 (14-36) U/L ALT 31 (4-34) U/L Alkaline Phosphatase 103 (38-126) U/L Troponin I (0.000-0.034) ng/mL NT-Pro-B Natriuret Pep pg/mL Total Protein 6.4 (6.3-8.2) g/dL Albumin 3.8 (3.5-5.0) g/dL 11/20/22 11/20/22 11/20/22 Range/Units 09:30 09:30 09:30 WBC (3.8-10.6) k/uL RBC (3.80-5.40) m/uL Hgb (11.4-16.0) gm/dL Hct (34.0-46.0) % MCV (80.0-100.0) fL MCH (25.0-35.0) pg MCHC (31.0-37.0) g/dL RDW (11.5-15.5) % Plt Count (150-450) k/uL MPV Neutrophils % % Lymphocytes % % Monocytes % % Eosinophils % % Basophils % % Neutrophils # (1.3-7.7) k/uL Lymphocytes # (1.0-4.8) k/uL Monocytes # (0-1.0) k/uL Eosinophils # (0-0.7) k/uL Basophils # (0-0.2) k/uL Poikilocytosis Anisocytosis PT (9.0-12.0) sec INR (<1.2) APTT (22.0-30.0) sec Sodium (137-145) mmol/L Potassium (3.5-5.1) mmol/L Chloride (98-107) mmol/L Carbon Dioxide (22-30) mmol/L Anion Gap mmol/L BUN (7-17) mg/dL Creatinine (0.52-1.04) mg/dL Est GFR (CKD-EPI)AfAm (>60 ml/min/1.73 sqM) Est GFR (CKD-EPI)NonAf (>60 ml/min/1.73 sqM) Glucose (74-99) mg/dL Plasma Lactic Acid Carlos Eduardo 1.4 (0.7-2.0) mmol/L Calcium (8.4-10.2) mg/dL Magnesium (1.6-2.3) mg/dL Total Bilirubin (0.2-1.3) mg/dL AST (14-36) U/L ALT (4-34) U/L Alkaline Phosphatase (38-126) U/L Troponin I <0.012 (0.000-0.034) ng/mL NT-Pro-B Natriuret Pep 113 pg/mL Total Protein (6.3-8.2) g/dL Albumin (3.5-5.0) g/dL Disposition Clinical Impression: Acute exacerbation of chronic obstructive pulmonary disease (COPD), Cephalgia Disposition: HOME SELF-CARE Condition: Good Instructions (If sedation given, give patient instructions): COPD (Chronic Obstructive Pulmonary Disease) (ED), Acute Headache (ED) Prescriptions: predniSONE [Deltasone] 40 mg PO DAILY #8 tab Is patient prescribed a controlled substance at d/c from ED?: No Referrals: Daniel Mosqueda MD [Primary Care Provider] - 1-2 days Time of Disposition: 12:18
[2022-11-20] MEDS ORDERED: diphenhydrAMINE 50 MG/ML 1 ML VIAL IVP STA (10:10)
[2022-11-20] MEDS ORDERED: KETOROLAC 15 MG/ML 1 ML VIAL IVP STA (10:10)
[2022-11-20] MEDS ORDERED: PROCHLORPERAZINE INJ 10 MG/2 ML VIAL IVP STA (10:10)
[2022-11-20 10:11] LABS: Anisocytosis Slight; Basophils % (A) 0 %; Eosinophils # (A) 0.3 k/uL (0-0.7); Eosinophils % (A) 3 %; HCT 41.1 % (34.0-46.0); HGB 13.4 gm/dL (11.4-16.0); Lymphocytes # (A) 1.8 k/uL (1.0-4.8); Lymphocytes % (A) 22 %; MCH 28.6 pg (25.0-35.0); MCHC 32.6 g/dL (31.0-37.0); MCV 87.7 fL (80.0-100.0); Mean Platelet Volume 8.8; Monocytes # (A) 0.4 k/uL (0-1.0); Monocytes % (A) 5 %; Neutrophils # (A) 5.7 k/uL (1.3-7.7); Neutrophils % (A) 69 %; Platelet Count 169 k/uL (150-450); Poikilocytosis Slight; RBC 4.68 m/uL (3.80-5.40); RDW 16.1 % (11.5-15.5); WBC 8.4 k/uL (3.8-10.6)
[2022-11-20 10:19] LABS: INR 3.1 (<1.2); Partial Thromboplastin Time 33.4 sec (22.0-30.0); Prothrombin Time 30.2 sec (9.0-12.0)
[2022-11-20 10:24] VITALS: BP 120/93; PULSE 93; RESP 20
[2022-11-20 11:34] LABS: ALT 31 U/L (4-34); AST 20 U/L (14-36); African American GFR (CKD) >90 (>60 ml/min/1.73 sqM); Albumin 3.8 g/dL (3.5-5.0); Alkaline Phosphatase 103 U/L (38-126); Anion Gap 7 mmol/L; Blood Urea Nitrogen 10 mg/dL (7-17); Calcium 8.7 mg/dL (8.4-10.2); Carbon Dioxide 30 mmol/L (22-30); Chloride 100 mmol/L (98-107); Glucose 107 mg/dL (74-99); Non-African American GFR(CKD) >90 (>60 ml/min/1.73 sqM); Potassium 4.3 mmol/L (3.5-5.1); Sodium 137 mmol/L (137-145); Total Bilirubin 0.4 mg/dL (0.2-1.3); Total Protein 6.4 g/dL (6.3-8.2)
--- NOTE | 2022-11-20 11:48 | XR ---
EXAMINATION TYPE: XR chest 2V DATE OF EXAM: 11/20/2022 11:43 AM COMPARISON: Chest radiographs from 11/11/2022 TECHNIQUE: XR chest 2V Frontal and lateral views of the chest. CLINICAL INDICATION:Female, 57 years old with history of difficulty breathing; FINDINGS: Lungs/Pleura: There is no evidence of pleural effusion, focal consolidation, or pneumothorax. Backgr ound emphysematous changes. Chronic senescent parenchymal change. Pulmonary vascularity: Unremarkable. Heart/mediastinum: Cardiomediastinal silhouette is enlarged and stable. Three lead cardiac conduction device overlying the left hemithorax with lead tips projecting over the right ventricle, right atriu m and coronary sinus. Musculoskeletal: No acute osseous pathology. All degenerative changes of the thoracic spine. IMPRESSION: Cardiomegaly and chronic emphysematous change without acute pulmonary process. No significant change from most recent x-ray.
== END 2022-11-20 12:35 | disposition home or self-care (01) ==
LOC: EC 09:14
DX: J44.1 Chronic obstructive pulmonary disease with (acute) exacerbation (principal); R51.9 Headache, unspecified; E78.5 Hyperlipidemia, unspecified; I10 Essential (primary) hypertension; I25.2 Old myocardial infarction; F41.9 Anxiety disorder, unspecified; F32.A Depression, unspecified; Z87.891 Personal history of nicotine dependence; Z88.5 Allergy status to narcotic agent; Z79.02 Long term (current) use of antithrombotics/antiplatelets; Z79.899 Other long term (current) drug therapy
CPT/HCPCS: 36415; 94640; 93005; 83880; 80053; 83605; 83735; 84484; 85025; 85610; 85730; 71046; 99284; 96374; 96375 ×3; J1200; J0780; J2930; J1885

== ENCOUNTER 2022-11-25 23:39 | Inpatient (IN) | payer MEDICARE ==
[2022-11-26] MEDS ORDERED: MAGNESIUM SULFATE-D5W PMX 1 GM in DEXTROSE/WATER 1 100ML.BAG IVPB STA (00:39)
[2022-11-26] MEDS ORDERED: SODIUM CHLORIDE 0.9% 500 ML 500 ML IV STA (00:39)
[2022-11-26] MEDS ORDERED: IPRATROPIUM-ALBUTEROL 3 ML NEB INHALATION STA ×2 (00:39→02:29)
[2022-11-26] MEDS ORDERED: methylPREDNISolone SOD SUCCI 125 MG/2 ML VIAL IV STA (00:39)
--- NOTE | 2022-11-26 01:01 | XR ---
EXAM: XR Chest, 2 Views CLINICAL HISTORY: ITS.REASON XR Reason: difficulty breathing TECHNIQUE: Frontal and lateral views of the chest. COMPARISON: 11/11/2022 FINDINGS: Lungs: Atelectasis at the right lung base. No consolidation or overt edema. Pleural space: No significant pleural effusion or pneumothorax. Heart: Unremarkable. No cardiomegaly. Bones/joints: Unremarkable. No fracture or malalignment. Tubes, lines and devices: Pacemaker is now on the left with multiple leads. IMPRESSION: 1. No acute cardiopulmonary abnormality. 2. Atelectasis at the right lung base.
[2022-11-26 01:06] LABS: Anisocytosis Slight; Basophils % (A) 0 %; Eosinophils # (A) 0.3 k/uL (0-0.7); Eosinophils % (A) 2 %; HCT 42.8 % (34.0-46.0); HGB 14.1 gm/dL (11.4-16.0); Lymphocytes # (A) 2.2 k/uL (1.0-4.8); Lymphocytes % (A) 14 %; MCH 28.7 pg (25.0-35.0); MCV 86.9 fL (80.0-100.0); Mean Platelet Volume 8.8; Monocytes # (A) 0.8 k/uL (0-1.0); Monocytes % (A) 5 %; Neutrophils # (A) 12.2 k/uL (1.3-7.7); Neutrophils % (A) 78 %; Platelet Count 217 k/uL (150-450); Poikilocytosis Slight; RBC 4.93 m/uL (3.80-5.40); WBC 15.6 k/uL (3.8-10.6)
[2022-11-26] MEDS ORDERED: ONDANSETRON 4 MG/2 ML VIAL IVP STA (01:10)
--- NOTE | 2022-11-26 01:12 | ED ---
General Adult HPI - General Chief complaint: Shortness of Breath Stated complaint: ANTONIO Time Seen by Provider: 11/26/22 00:30 Source: patient, RN notes reviewed, old records reviewed Mode of arrival: wheelchair Limitations: no limitations - History of Present Illness Initial comments: Patient is a 57-year-old female who presents emergency department for any shortness of breath. She has a history remarkable for angina, hypertension, COPD, prior MIs, on Coumadin. Patient has chronic respiratory failure on 2 L nasal cannula oxygen at home. Has been dealing with on again off again dyspnea for the last month or so. Seems to improve when she gets steroid burst but then worsens again once this wears off. Has been having a headache, as well as short ness of breath, coughing that is nonproductive for the last few days which is been typical for her when the steroids were stopped. States she is wheezing worse. Has exertional shortness of breath. Denies any chest pain, abdominal pain. Endorses mild nausea as well as a mild headache. No other acute complaint at this time. Presents for further evaluation at this time. States symptoms are very similar to when I previously evaluated the patient. Patient was last here 5 days ago. Discussed likely admission which she was in agreement that this point as she has had multiple visits over the last few weeks for the same complaint. - Related Data Home Medications Medication Instructions Recorded Confirmed Spironolactone [Aldactone] 25 mg PO W/SUPPER 08/15/20 11/20/22 Amiodarone [Cordarone] 200 mg PO DAILY 06/20/21 11/20/22 Atorvastatin [Lipitor] 10 mg PO W/SUPPER 06/20/21 11/20/22 Warfarin Sodium [Jantoven] 7.5 mg PO W/SUPPER 06/20/21 11/20/22 Cholecalciferol [Vitamin D3 (125 125 mcg PO DAILY 09/05/22 11/20/22 Mcg = 5000 Iu)] Ipratropium-Albuterol Nebulize 3 ml INHALATION RT-QID PRN 09/05/22 11/20/22 [Duoneb 0.5 mg-3 mg/3 ml Soln] Multivitamins, Thera [Multivitamin 1 tab PO DAILY 09/05/22 11/20/22 (formulary)] ALPRAZolam [Xanax] 0.5 mg PO TID PRN 10/25/22 11/20/22 Albuterol Inhaler [Ventolin Hfa 2 puff INHALATION RT-QID 11/20/22 11/20/22 Inhaler] Butalb/Acetaminophen/Caffeine 1 - 2 cap PO Q4HR PRN 11/20/22 11/20/22 [Fioricet 50-300-40 mg Capsule] Previous Rx's Medication Instructions Recorded carvediloL [Coreg] 6.25 mg PO BID-W/MEALS #180 tab 04/08/20 lisinopriL [Zestril] 2.5 mg PO DAILY #90 tab 04/08/20 Ipratropium-Albuterol Nebulize 3 ml INHALATION RT-QID each 10/28/22 [Duoneb 0.5 mg-3 mg/3 ml Soln] predniSONE [Deltasone] 40 mg PO DAILY #8 tab 11/20/22 Allergies Allergy/AdvReac Type Severity Reaction Status Date / Time hydromorphone [From Dilaudid] AdvReac Nausea & Verified 11/25/22 23:54 Vomiting Review of Systems ROS Statement: Those systems with pertinent positive or pertinent negative responses have been documented in the HPI. Review of Systems: CONST: Denies fever EYES: Denies blurry vision ENT: Denies nasal congestion C/V: Denies Chest pain RESP: Endorses shortness of breath GI: Denies abdominal pain : Denies dysuria SKIN: Denies rash. MSK: Denies joint pain. NEURO: Denies headache ROS Other: All systems not noted in ROS Statement are negative. Past Medical History Past Medical History: Chest Pain / Angina, COPD, Hyperlipidemia, Hypertension, Myocardial Infarction ([place]), Pneumonia, Pulmonary Embolus ([place]) Additional Past Medical History / Comment(s): cardiomyopathy, PE (6yrs ago), brain aneursym [place] Last Myocardial Infarction Date:: 5 yrs ago History of Any Multi-Drug Resistant Organisms: None Reported Past Surgical History: AICD, Cholecystectomy, Heart Catheterization Additional Past Surgical History / Comment(s): AICD defibrillator placed 6 years ago Past Anesthesia/Blood Transfusion Reactions: No Reported Reaction Type of Cardiac Device: AICD Device Placement Date:: 2015 Past Psychological History: Anxiety, Depression Smoking Status: Former smoker Past Alcohol Use History: None Reported Past Drug Use History: None Reported - Past Family History Mother Family Medical History: Diabetes Mellitus, Hypertension Father Family Medical History: No Reported History General Exam - General Exam Comments Initial Comments: General: Appears in no acute distress. HEAD: Normal with no signs of head trauma. EYES: PERRLA, EOMI, conjunctiva normal, no discharge. ENT: Hearing grossly intact, normal oropharynx. RESPIRATORY: Bilateral end expiratory wheezing. No hypoxia on baseline 2 L nasal cannula. C/V: Mild tachycardia. S1 and S2 auscultated, no edema, peripheral pulses 2+ and intact throughout ABD: Abd is soft, nontender, nondistended EXT: Normal range of motion, no obvious deformity SKIN: No rashes or lesions observed on exposed skin. NEURO: Alert and oriented 4. Limitations: no limitations Course Vital Signs 11/25/22 11/26/22 11/26/22 23:54 00:55 01:00 Temperature 98 F Pulse Rate 107 H 102 H 102 H Respiratory 18 Rate Blood Pressure 118/75 O2 Sat by Pulse 94 L Oximetry 11/26/22 11/26/22 11/26/22 01:39 02:38 02:46 Temperature Pulse Rate 93 90 96 Respiratory 20 Rate Blood Pressure 100/75 O2 Sat by Pulse 98 Oximetry Medical Decision Making - Medical Decision Making Was pt. sent in by a medical professional or institution (, PA, [employer], urgent care, hospital, or [facility]...) When possible be specific @ -No Did you speak to anyone other than the patient for history (EMS, parent, family, police, friend...)? What history was obtained from this source @ -No Did you review nursing and triage notes (agree or disagree)? Why? @ -I reviewed and agree with nursing and triage notes Were old charts reviewed (outside hosp., previous admission, EMS record, old EKG, old radiological studies, urgent care reports/EKG's, [facility] records)? Report findings @ -Old charts reviewed from recent visits from November 2022 in October 2022. Differential Diagnosis (chest pain, altered mental status, abdominal pain women, abdominal pain men, vaginal bleeding, weakness, fever, dyspnea, syncope, headache, dizziness, GI bleed, back pain, seizure, CVA, palpatations, mental health, musculoskeletal)? @ -Differential Dyspnea: Coronary syndrome, arrhythmia, tamponade, asthma, COPD, pulmonary embolism, pneumonia, pneumothorax, pulmonary effusion, anaphylaxis, diabetic ketoacidosis, flailed chest, pulmonary contusion, diaphragmatic rupture, anemia, neuromuscular, this is not meant to be an all-inclusive list. EKG interpreted by me (3pts min.). @ -As above X-rays interpreted by me (1pt min.). @ -Chest x-ray reveals no obvious acute cardiopulmonary process. CT interpreted by me (1pt min.). @ -None done U/S interpreted by me (1pt. min.). @ -None done What testing was considered but not performed or refused? (CT, X-rays, U/S, labs)? Why? @ -None What meds were considered but not given or refused? Why? @ -None Did you discuss the management of the patient with other professionals (professionals i.e. , PA, [employer], lab, RT, psych nurse, executive secretary social welfare, miniature train driver, teacher, customer service security officer, counseling case manager)? Give summary @ -Discussed with Dr. Mosqueda who accepted the admission. Was smoking cessation discussed for >3mins.? @ -No Was critical care preformed (if so, how long)? @ -No Were there social determinants of health that impacted care today? How? (Homelessness, low income, unemployed, alcoholism, drug addiction, transportat ion, low edu. Level, literacy, decrease access to med. care, assisted, rehab)? @ -No Was there de-escalation of care discussed even if they declined (Discuss DNR or withdrawal of care, Hospice)? DNR status @ -No What co-morbidities impacted this encounter? (DM, HTN, Smoking, COPD, CAD, Cancer, CVA, ARF, Chemo, Hep., AIDS, mental health diagnosis, sleep apnea, morbid obesity)? @ -COPD, chronic hypoxia on 2 L nasal cannula Was patient admitted / discharged? Hospital course, mention meds given and route, prescriptions, significant lab abnormalities, going to OR and other pertinent info. @ -Based on the patient's presentation and physical exam, appears to be present ing with identical symptoms as recent admissions with respiratory distress. Appears to be having bronchospasm and likely COPD exacerbation. We will obtain cardiac primary labs as well as a chest x-ray and EKG. Vital signs are within acceptable limits. She will receive breathing treatment, IV mag, steroids, fluids. Has a mild headache and will receive also IV Zofran as well as a dose of Tylenol. She was in agreement this plan. Patient's EKG shows no obvious acute ischemic process. Labs were remarkable for mild leukocytosis of 15. INR is subtherapeutic at 1.4. Viral signs are negative. Chest x-ray unremarkable. On reevaluation, wheezing is improved. Work of breathing is improved. She is resting comfortable at this time saturating well on her baseline 2 L nasal cannula oxygen. I discussed her workup with her. As this is her fifth visit in the last month for the same symptoms, we will admit the patient. She was in agreement with this plan. We'll continue IV steroids and breathing treatments as well as empirically start the patient on doxycycline for bronchitis due to increased production of mucus over the last few days since her last steroid was stopped. She was in agreement this plan. Pulmonology was consulted. I spoke with the admitting physician Dr. Mcghee who accepted the patient. Undiagnosed new problem with uncertain prognosis? @ -No Drug Therapy requiring intensive monitoring for toxicity (Heparin, Nitro, Insulin, Cardizem)? @ -No Were any procedures done? @ -No Diagnosis/symptom? @ -COPD, bronchitis Acute, or Chronic, or Acute on Chronic? @ -Acute on chronic Uncomplicated (without systemic symptoms) or Complicated (systemic symptoms)? @ -Complicated Side effects of treatment? @ -No Exacerbation, Progression, or Severe Exacerbation? @ -Exacerbation Poses a threat to life or bodily function? How? (Chest pain, [place], [place], pneumonia, PE, COPD, DKA, ARF, appy, cholecystitis, CVA, Diverticulitis, Homicidal, Suicidal, threat to staff... and all critical care pts) @ -No - Lab Data Result diagrams: 11/26/22 00:42 11/26/22 00:42 Lab Results 11/26/22 11/26/22 11/26/22 Range/Units 00:42 00:42 00:42 WBC 15.6 H (3.8-10.6) k/uL RBC 4.93 (3.80-5.40) m/uL Hgb 14.1 (11.4-16.0) gm/dL Hct 42.8 (34.0-46.0) % MCV 86.9 (80.0-100.0) fL MCH 28.7 (25.0-35.0) pg MCHC 33.0 (31.0-37.0) g/dL RDW 16.0 H (11.5-15.5) % Plt Count 217 (150-450) k/uL MPV 8.8 Neutrophils % 78 % Lymphocytes % 14 % Monocytes % 5 % Eosinophils % 2 % Basophils % 0 % Neutrophils # 12.2 H (1.3-7.7) k/uL Lymphocytes # 2.2 (1.0-4.8) k/uL Monocytes # 0.8 (0-1.0) k/uL Eosinophils # 0.3 (0-0.7) k/uL Basophils # 0.0 (0-0.2) k/uL Poikilocytosis Slight Anisocytosis Slight PT 14.1 H (9.0-12.0) sec INR 1.4 H (<1.2) APTT 24.6 (22.0-30.0) sec Sodium 138 (137-145) mmol/L Potassium 3.9 (3.5-5.1) mmol/L Chloride 101 (98-107) mmol/L Carbon Dioxide 26 (22-30) mmol/L Anion Gap 11 mmol/L BUN 13 (7-17) mg/dL Creatinine 0.72 (0.52-1.04) mg/dL Est GFR (CKD-EPI)AfAm >90 (>60 ml/min/1.73 sqM) Est GFR (CKD-EPI)NonAf >90 (>60 ml/min/1.73 sqM) Glucose 92 (74-99) mg/dL Calcium 9.1 (8.4-10.2) mg/dL Magnesium 1.9 (1.6-2.3) mg/dL Total Bilirubin 0.7 (0.2-1.3) mg/dL AST 21 (14-36) U/L ALT 31 (4-34) U/L Alkaline Phosphatase 96 (38-126) U/L Total Protein 6.9 (6.3-8.2) g/dL Albumin 4.3 (3.5-5.0) g/dL Influenza Type A (PCR) (Not Detectd) Influenza Type B (PCR) (Not Detectd) RSV (PCR) (Not Detectd) SARS-CoV-2 (PCR) (Not Detectd) 11/26/22 Range/Units 00:42 WBC (3.8-10.6) k/uL RBC (3.80-5.40) m/uL Hgb (11.4-16.0) gm/dL Hct (34.0-46.0) % MCV (80.0-100.0) fL MCH (25.0-35.0) pg MCHC (31.0-37.0) g/dL RDW (11.5-15.5) % Plt Count (150-450) k/uL MPV Neutrophils % % Lymphocytes % % Monocytes % % Eosinophils % % Basophils % % Neutrophils # (1.3-7.7) k/uL Lymphocytes # (1.0-4.8) k/uL Monocytes # (0-1.0) k/uL Eosinophils # (0-0.7) k/uL Basophils # (0-0.2) k/uL Poikilocytosis Anisocytosis PT (9.0-12.0) sec INR (<1.2) APTT (22.0-30.0) sec Sodium (137-145) mmol/L Potassium (3.5-5.1) mmol/L Chloride (98-107) mmol/L Carbon Dioxide (22-30) mmol/L Anion Gap mmol/L BUN (7-17) mg/dL Creatinine (0.52-1.04) mg/dL Est GFR (CKD-EPI)AfAm (>60 ml/min/1.73 sqM) Est GFR (CKD-EPI)NonAf (>60 ml/min/1.73 sqM) Glucose (74-99) mg/dL Calcium (8.4-10.2) mg/dL Magnesium (1.6-2.3) mg/dL Total Bilirubin (0.2-1.3) mg/dL AST (14-36) U/L ALT (4-34) U/L Alkaline Phosphatase (38-126) U/L Total Protein (6.3-8.2) g/dL Albumin (3.5-5.0) g/dL Influenza Type A (PCR) Not Detected (Not Detectd) Influenza Type B (PCR) Not Detected (Not Detectd) RSV (PCR) Not Detected (Not Detectd) SARS-CoV-2 (PCR) Not Detected (Not Detectd) - EKG Data -: EKG Interpreted by Me EKG Comments: 12-lead Electrocardiogram Interpretation Note EKG was reviewed and interpreted by myself. 12-lead ECG performed at 0029 is interpreted by me as revealing ventricularly paced rhythm at a rate of 99 beats per minute. Normal axis. IN interval is 92 ms, QRS duration is 163 ms, QTc is 463 ms.. There were no ST or T wave abnormalities to suggest myocardial ischemia or injury. R wave progression across the precordium was delayed. By my interpretation this EKG is non-diagnostic for acute ischemia. When compared with EKG from 11/11/2022, no significant change. Disposition Clinical Impression: COPD (chronic obstructive pulmonary disease), Bronchitis Disposition: ADMITTED IP TO THIS HOSP Condition: Stable Referrals: Daniel Mosqueda MD [Primary Care Provider] - 1-2 days Time of Disposition: 02:14
[2022-11-26] MEDS ORDERED: ACETAMINOPHEN TAB 500 MG TAB PO STA (01:16)
[2022-11-26 01:18] LABS: ALT 31 U/L (4-34); AST 21 U/L (14-36); African American GFR (CKD) >90 (>60 ml/min/1.73 sqM); Albumin 4.3 g/dL (3.5-5.0); Alkaline Phosphatase 96 U/L (38-126); Anion Gap 11 mmol/L; Blood Urea Nitrogen 13 mg/dL (7-17); Calcium 9.1 mg/dL (8.4-10.2); Carbon Dioxide 26 mmol/L (22-30); Chloride 101 mmol/L (98-107); Glucose 92 mg/dL (74-99); Magnesium 1.9 mg/dL (1.6-2.3); Non-African American GFR(CKD) >90 (>60 ml/min/1.73 sqM); Potassium 3.9 mmol/L (3.5-5.1); Sodium 138 mmol/L (137-145); Total Bilirubin 0.7 mg/dL (0.2-1.3); Total Protein 6.9 g/dL (6.3-8.2)
[2022-11-26 01:19] LABS: INR 1.4 (<1.2); Partial Thromboplastin Time 24.6 sec (22.0-30.0); Prothrombin Time 14.1 sec (9.0-12.0)
[2022-11-26] MEDS ORDERED: NALOXONE 0.4 MG/ML 1 ML VIAL IV PRN (02:28)
[2022-11-26] MEDS ORDERED: ONDANSETRON 4 MG/2 ML VIAL IVP PRN (02:28)
[2022-11-26] MEDS ORDERED: ALPRAZolam 0.5 MG TAB PO PRN (02:29)
[2022-11-26] MEDS: DOXYCYCLINE 100 MG in SODIUM CHLORIDE 0.9% 100 ML IVPB SCH ×2 (02:56→16:14)
[2022-11-26] MEDS ORDERED: IPRATROPIUM-ALBUTEROL 3 ML NEB INHALATION SCH (04:00)
[2022-11-26] MEDS ORDERED: IPRATROPIUM-ALBUTEROL 3 ML NEB INHALATION PRN ×2 (04:23→10:22)
--- NOTE | 2022-11-26 05:07 | P.CNPUL ---
History of Present Illness Consult date: 11/26/22 Requesting physician: Steven Palmer Reason for consult: COPD Chief complaint: Shortness of breath History of present illness: I'm seeing this patient in new consultation today 11/26/2022 for suspected acute COPD exacerbation. This is a 57-year-old white female with past medical history significant for severe COPD with an FEV1 of 37% of predicted, chronic oxygen dependence utilizing 2 L/m nasal cannula, DVT and pulmonary embolism, nonischemic cardiomyopathy with AICD, hypertension, ex-smoker with a 11-vsfl-andw history quitting approximately one year ago. Patient had a recent hospital admission for similar symptoms last month, and she has recently become established with Dr. Harden in the office. She has been struggling to pay for her Symbicort, and was switched to Wixella. Patient states that the Wixella is even more money. She states that her symptoms usually improve while on steroids, but reoccur once the steroids are tapered off. Patient presented to the emergency room early this morning for the chief symptoms of worsening shortness of breath, wheezing, and cough with minimal sputum production over the last 24 hrs. There was also associated chest heaviness without radiation. Patient denies any palpitations, lightheadedness, weight gain, orthopnea, or syncope. She de nies any fever, chills, hemoptysis. Patient is currently resting in the recliner, on 2 L nasal cannula, in no acute distress. Chest x-ray on arrival showed no acute cardiopulmonary disease, and some atelectasis of the right lung base. CBC shows some leukocytosis with a WBC count of 15.6, hemoglobin 14, hematocrit 43, platelets 217,000. Blood cultures are pending. INR is subtherapeutic at 1.4. D-dimer low at 0.26. BMP was essentially unremarkable. Negative for COVID-19, influenza, RSV. Patient was started on some empiric doxycycline. She is also receiving bronchodilators. Heart rhythm is V-paced. Vital signs are stable. Review of Systems REVIEW OF SYSTEMS: CONSTITUTIONAL: Denies any recent significant weight loss or weight gain. EYES: Denies change in vision. EARS, NOSE, MOUTH, THROAT: Denies headaches, denies sore throat. CARDIOVASCULAR: Denies radiating chest pain, palpitations or syncopal episodes. RESPIRATORY: See HPI. GASTROINTESTINAL: Denies change in appetite, abdominal pain, vomiting, or diarrhea. Admits some nausea GENITOURINARY: Denies hematuria, denies infections. MUSKULOSKELETAL: Denies pain, denies swelling. INTEGUMENTARY: Denies rash, denies eczema. NEUROLOGICAL: Denies recent memory loss, no recent seizure activity. PSYCHIATRIC: Denies anxiety, denies depression. HEMATOLOGIC/LYMPHATIC: Denies anemia, denies enlarged lymph node Past Medical History Past Medical History: Chest Pain / Angina, COPD, Hyperlipidemia, Hypertension, Myocardial Infarction ([place]), Pneumonia, Pulmonary Embolus (PE) Additional Past Medical History / Comment(s): cardiomyopathy, PE (6yrs ago), brain aneursym [place] Last Myocardial Infarction Date:: 5 yrs ago History of Any Multi-Drug Resistant Organisms: None Reported Past Surgical History: AICD, Cholecystectomy, Heart Catheterization Additional Past Surgical History / Comment(s): AICD defibrillator placed 6 years ago Past Anesthesia/Blood Transfusion Reactions: No Reported Reaction Type of Cardiac Device: AICD Device Placement Date:: 2015 Past Psychological History: Anxiety, Depression Smoking Status: Former smoker Past Alcohol Use History: None Reported Past Drug Use History: None Reported - Past Family History Mother Family Medical History: Diabetes Mellitus, Hypertension Father Family Medical History: No Reported History Medications and Allergies Home Medications Medication Instructions Recorded Confirmed Type carvediloL [Coreg] 6.25 mg PO BID-W/MEALS #180 tab 04/08/20 11/26/22 Rx lisinopriL [Zestril] 2.5 mg PO DAILY #90 tab 04/08/20 11/26/22 Rx Spironolactone [Aldactone] 25 mg PO W/SUPPER 08/15/20 11/26/22 History Amiodarone [Cordarone] 100 mg PO DAILY 06/20/21 11/26/22 History Atorvastatin [Lipitor] 10 mg PO W/SUPPER 06/20/21 11/26/22 History Warfarin Sodium [Jantoven] 7.5 mg PO W/SUPPER 06/20/21 11/26/22 History Cholecalciferol [Vitamin D3 (125 125 mcg PO DAILY 09/05/22 11/26/22 History Mcg = 5000 Iu)] Ipratropium-Albuterol Nebulize 3 ml INHALATION RT-QID PRN 09/05/22 11/26/22 History [Duoneb 0.5 mg-3 mg/3 ml Soln] Multivitamins, Thera [Multivitamin 1 tab PO DAILY 09/05/22 11/26/22 History (formulary)] ALPRAZolam [Xanax] 0.5 mg PO TID PRN 10/25/22 11/26/22 History Ipratropium-Albuterol Nebulize 3 ml INHALATION RT-QID each 10/28/22 11/26/22 Rx [Duoneb 0.5 mg-3 mg/3 ml Soln] Albuterol Inhaler [Ventolin Hfa 2 puff INHALATION RT-QID 11/20/22 11/26/22 History Inhaler] Butalb/Acetaminophen/Caffeine 1 - 2 cap PO Q4HR PRN 11/20/22 11/26/22 History [Fioricet 50-300-40 mg Capsule] Allergies Allergy/AdvReac Type Severity Reaction Status Date / Time hydromorphone [From Dilaudid] AdvReac Nausea & Verified 11/26/22 06:34 Vomiting Physical Exam Vitals: Vital Signs Temp Pulse Resp BP Pulse Ox 11/26/22 02:46 96 11/26/22 02:38 90 11/26/22 01:39 93 20 100/75 98 11/26/22 01:00 102 H 11/26/22 00:55 102 H 11/25/22 23:54 98 F 107 H 18 118/75 94 L Intake and Output 11/25/22 11/25/22 11/26/22 14:59 22:59 06:59 Other: Weight 104.326 kg GENERAL EXAM: Alert, 57-year-old white female, comfortable in no apparent distress. HEAD: Normocephalic and atraumatic EYES: Normal reaction of pupils, equal size. NOSE: Clear with pink turbinates. THROAT: No erythema or exudates. NECK: No masses, no JVD. CHEST: No chest wall deformity. LUNGS: Equal air entry with mild expiratory wheezes throughout. no crackles, rhonchi or focal dullness. On 2 L nasal cannula. No conversational dyspnea or accessory muscle use.. CVS: S1 and S2 normal with no audible murmur, regular rhythm. No extra heart sounds. Rate 100 bpm ABDOMEN: No hepatosplenomegaly, active bowel sounds, no guarding or rigidity. SPINE: No scoliosis or deformity SKIN: No rashes CENTRAL NERVOUS SYSTEM: No focal deficits, tone is normal in all 4 extremities. EXTREMITIES: There is mild nonpitting bilateral lower extremity edema. no clubbing, or cyanosis. Peripheral pulses are intact. Results - Laboratory Findings CBC and BMP: 11/26/22 00:42 11/26/22 00:42 PT/INR, D-dimer PT 14.1 sec (9.0-12.0) H 11/26/22 00:42 INR 1.4 (<1.2) H 11/26/22 00:42 Abnormal lab findings: Abnormal Labs 11/26/22 11/26/22 00:42 00:42 WBC 15.6 H RDW 16.0 H Neutrophils # 12.2 H PT 14.1 H INR 1.4 H - Diagnostic Findings Chest x-ray: image reviewed Assessment and Plan Assessment: Acute exacerbation of the patient's known severe COPD. negative for influenza, RSV, COVID-19. Chest x-ray showed no acute cardiopulmonary process, with some right lower lobe atelectasis. Acute on chronic hypoxemic respiratory failure secondary to above. On 2 L nasal cannula History of nonischemic cardiomyopathy with biventricular AICD. She does have history of V. fib cardiac arrest. Most recent echocardiogram on 07/21/2021 shows a preserved ejection fraction of 50-55% with a moderate to severely enlarged right ventricle and moderate concentric LVH. Hypertension History of DVT and pulmonary embolism on warfarin. INR was subtherapeutic on arrival. History of cerebral aneurysm Obesity with a BMI of 35 Ex-smoker. Patient recently quit approximately 1 year ago, and has a 54-[id number]-[id number] history Plan: Patient's medications, labs, chest x-ray reviewed Continue bronchodilators Start IV Solu-Medrol Start the patient on Symbicort inhaler Continue supplemental oxygen to maintain oxygen saturation of 92% or greater Empiric antibiotics were ordered Check procalcitonin level Repeat PT/INR in the morning Continue anticoagulation with pharmacy to dose warfarin Check troponin We will continue to follow I have personally seen and examined the patient, performed the documentation and the assessment and plan as written. Number of minutes spent on the visit:20 On today's evaluation, the patient is seen in the joint evaluation with the nurse practitioner. She was restless for an acute exacerbation. [facility] current admission and her last admission was back in October 2022. She has an FEV1 of 37% of predicted. She is currently being treated for an acute COPD exacerbation. Chest x-ray was free of any acute pulmonary infiltrates or pneumonia. She is maintained on Symbicort on outpatient basis. Her current treatment.Evaluation was done in > 30 min Time with Patient: Greater than 30
[2022-11-26] MEDS: methylPREDNISolone SOD SUCCI 125 MG/2 ML VIAL IV SCH ×3 (07:27→17:49)
[2022-11-26] MEDS: carvediloL 6.25 MG TAB PO SCH ×2 (07:37→17:49)
[2022-11-26] MEDS: IPRATROPIUM-ALBUTEROL 3 ML NEB INHALATION SCH ×4 (07:42→21:09)
[2022-11-26] MEDS: SYMBICORT 160-4.5 MCG INHALER INHALATION SCH ×2 (07:42→21:09)
[2022-11-26] MEDS ORDERED: methylPREDNISolone SOD SUCCI 40 MG/ML 1 ML VIAL IV SCH (09:00)
[2022-11-26] MEDS: AMIODARONE 200 MG TAB PO SCH (09:11)
[2022-11-26] MEDS ORDERED: NON FORMULARY DRUG (Albuterol Inhaler [Ventolin Hfa Inhaler] 60 PUFF Gm) INHALATION SCH (12:00)
[2022-11-26] MEDS: BUTALB/APAP/CAFF 50-325-40MG TAB PO PRN ×3 (12:04→21:56)
[2022-11-26] MEDS: SPIRONOLACTONE 25 MG TAB PO SCH (17:49)
[2022-11-26] MEDS: ATORVASTATIN 10 MG TAB PO SCH (17:49)
[2022-11-26] MEDS: WARFARIN 7.5 MG TAB PO SCH (17:49)
[2022-11-27] MEDS: methylPREDNISolone SOD SUCCI 125 MG/2 ML VIAL IV SCH ×2 (00:36→06:12)
[2022-11-27] MEDS: DOXYCYCLINE 100 MG in SODIUM CHLORIDE 0.9% 100 ML IVPB SCH ×2 (02:31→14:16)
--- NOTE | 2022-11-27 05:33 | HP ---
HISTORY AND PHYSICAL CHIEF COMPLAINT: Difficulty breathing. HISTORY OF PRESENT ILLNESS: This is another admission for this 57-year-old white female who has a longstanding history of multiple problems including COPD, coronary artery disease, congestive heart failure, pulmonary emboli, hemorrhagic stroke. She came to emergency room because of shortness of breath. Workup failed to demonstrate any cardiac issue and it was felt this was all related to COPD. She states she is not smoking any longer. REVIEW OF SYSTEMS: She has had no fever, no chills, no chest pain, syncope, orthopnea, PND, abdominal pain, nausea, vomiting, hematemesis, melena, hematochezia, jaundice, renal failure, hematuria, and diabetes. ALLERGIES: To Dilaudid. MEDICATIONS: 1. Carvedilol. 2. Spironolactone. 3. Lisinopril. 4. Jantoven. 5. Amiodarone. 6. Symbicort. 7. DuoNeb. 8. Atorvastatin. 9. Omeprazole. 10.Xanax. 11.Ventolin. Remainder of her history is unremarkable. PHYSICAL EXAMINATION: VITAL SIGNS: Blood pressure 124/78 with a pulse of 94, respirations of 40. GENERAL: She appeared to be in some respiratory distress. SKIN: Color is normal. Skin is dry. HEENT: Head, ears, eyes, nose, mouth and throat were normal. CHEST: Demonstrated decreased breath sounds with scattered rales and occasional rhonchi. CARDIAC: Demonstrates sinus tachycardia. ABDOMEN: Soft and nontender. EXTREMITIES: Normal. NEUROLOGICAL: She is intact. DIAGNOSES: She is admitted to the hospital with diagnoses, 1. Exacerbation of chronic obstructive pulmonary disease. 2. History of coronary artery disease. 3. History of congestive heart failure. 4. Cardiomyopathy. 5. History of pulmonary embolism. 6. History of hypertension. 7. Anxiety. PLAN: 1. Bedrest. 2. IV fluids. 3. Updrafts. 4. IV inhaled steroids. 5. Pulmonology consult. MMODL / IJN: [id number] /
[2022-11-27] MEDS: carvediloL 6.25 MG TAB PO SCH ×2 (06:12→20:57)
[2022-11-27] MEDS: IPRATROPIUM-ALBUTEROL 3 ML NEB INHALATION SCH ×4 (08:56→21:45)
[2022-11-27] MEDS: SYMBICORT 160-4.5 MCG INHALER INHALATION SCH ×2 (08:56→21:45)
[2022-11-27] MEDS: BUTALB/APAP/CAFF 50-325-40MG TAB PO PRN ×2 (09:05→20:58)
[2022-11-27 11:08] LABS: Basophils # (A) 0.04 X 10*3/uL (0.00-0.10); Basophils % (A) 0.3 %; Eosinophils # (A) 0 X 10*3/uL (0.04-0.35); Eosinophils % (A) 0 %; HCT 44.2 % (37.2-46.3); HGB 14.1 g/dL (12.0-15.0); Immature Grans, Automated 1.3 %; Lymphocytes # (A) 1.09 X 10*3/uL (0.90-5.00); Lymphocytes % (A) 7.6 %; MCH 29.1 pg (27.0-32.0); MCHC 31.9 g/dL (32.0-37.0); MCV 91.3 fL (80.0-97.0); Monocytes # (A) 0.38 X 10*3/uL (0.20-1.00); Monocytes % (A) 2.6 %; NRBC Per 100 WBC 0 /100 WBCS (0.0-0.0); Neutrophils # (A) 12.66 X 10*3/uL (1.80-7.70); Neutrophils % (A) 88.2 %; Platelet Count 233 X 10*3/uL (140-440); RBC 4.84 X 10*6/uL (4.10-5.20); RDW 16.4 % (11.5-14.5); WBC 14.35 X 10*3/uL (4.50-10.00)
[2022-11-27 11:17] LABS: African American GFR (CKD) 106.8 (60.0-200.0); Anion Gap 13.3 mmol/L (10.00-18.00); BUN/Creat Ratio 22.61 Ratio (12.00-20.00); Blood Urea Nitrogen 16.3 mg/dL (9.0-27.0); Calcium 9.6 mg/dL (8.7-10.3); Carbon Dioxide 26.5 mmol/L (20.0-27.5); Non-African American GFR(CKD) 92.2 (60.0-200.0); Potassium 5.2 mmol/L (3.5-5.5)
[2022-11-27] MEDS: AMIODARONE 200 MG TAB PO SCH (12:40)
--- NOTE | 2022-11-27 12:43 | P.PN ---
Subjective Progress Note Date: 11/27/22 I'm seeing this patient in new consultation today 11/26/2022 for suspected acute COPD exacerbation. This is a 57-year-old white female with past medical history significant for severe COPD with an FEV1 of 37% of predicted, chronic oxygen dependence utilizing 2 L/m nasal cannula, DVT and pulmonary embolism, nonischemic cardiomyopathy with AICD, hypertension, ex-smoker with a [id number] history quitting approximately one year ago. Patient had a recent hospital admission for similar symptoms last month, and she has recently become established with Dr. Harden in the office. She has been struggling to pay for her Symbicort, and was switched to Wixella. Patient states that the Wixella is even more money. She states that her symptoms usually improve while on steroids, but reoccur once the steroids are tapered off. Patient presented to the emergency room early this morning for the chief symptoms of worsening shortness of breath, wheezing, and cough with minimal sputum production over the last 24 hrs. There was also associated chest heaviness without radiation. Patient denies any palpitations, lightheadedness, weight gain, orthopnea, or syncope. She denies any fever, chills, hemoptysis. Patient is currently resting in the recliner, on 2 L nasal cannula, in no acute distress. Chest x-ray on arrival showed no acute cardiopulmonary disease, and some atelectasis of the right lung base. CBC shows some leukocytosis with a WBC count of 15.6, hemoglobin 14, hematocrit 43, platelets 217,000. Blood cultures are pending. INR is subtherapeutic at 1.4. D-dimer low at 0.26. BMP was essentially unremarkable. Negative for COVID-19, influenza, RSV. Patient was started on some empiric doxy cycline. She is also receiving bronchodilators. Heart rhythm is V-paced. Vital signs are stable. On today's evaluation of 11/27/2022, the patient is resting comfortably in bed. No specific complaints. She is being treated for an acute COPD exacerbation. No chest pain. No cough or sputum production. She is on warfarin and the PT/INR needs to be adjusted by pharmacy. She is on Symbicort. She is on DuoNeb about treatments [id number]. She is on doxycycline. She is also on IV Solu-Medrol. Objective - Vital Signs Vital signs: Vital Signs Temp 98.0 F 11/27/22 06:51 Pulse 94 11/27/22 09:09 Resp 16 11/27/22 06:51 BP 131/71 11/27/22 06:51 Pulse Ox 96 11/27/22 08:57 FiO2 Intake & Output 11/26/22 11/27/22 11/27/22 18:59 06:59 18:59 Intake Total 240 Balance 240 Weight 104.326 kg Intake: Oral 240 Other: Voiding Method Toilet # Voids 3 2 - Exam GENERAL EXAM: Alert, 57-year-old white female, comfortable in no apparent distress. HEAD: Normocephalic and atraumatic EYES: Normal reaction of pupils, equal size. NOSE: Clear with pink turbinates. THROAT: No erythema or exudates. NECK: No masses, no JVD. CHEST: No chest wall deformity. LUNGS: Equal air entry with mild expiratory wheezes throughout. no crackles, rhonchi or focal dullness. On 2 L nasal cannula. No conversational dyspnea or accessory muscle use.. CVS: S1 and S2 normal with no audible murmur, regular rhythm. No extra heart sounds. Rate 100 bpm ABDOMEN: No hepatosplenomegaly, active bowel sounds, no guarding or rigidity. SPINE: No scoliosis or deformity SKIN: No rashes CENTRAL NERVOUS SYSTEM: No focal deficits, tone is normal in all 4 extremities. EXTREMITIES: There is mild nonpitting bilateral lower extremity edema. no clubbi ng, or cyanosis. Peripheral pulses are intact. - Labs CBC & Chem 7: 11/27/22 06:57 11/27/22 06:57 Labs: Microbiology - Last 24 Hours (Table) 11/26/22 01:20 Blood Culture - Preliminary Blood 11/26/22 01:05 Blood Culture - Preliminary Blood Assessment and Plan Assessment: Acute exacerbation of the patient's known severe COPD. negative for influenza, RSV, COVID-19. Chest x-ray showed no acute cardiopulmonary process, with some right lower lobe atelectasis. The patient has severe COPD with an FEV1 of 57% of predicted maintain on Symbicort on outpatient basis. Acute on chronic hypoxemic respiratory failure secondary to above. On 2 L nasal cannula History of nonischemic cardiomyopathy with biventricular AICD. She does have history of V. fib cardiac arrest. Most recent echocardiogram on 07/21/2021 shows a preserved ejection fraction of 50-55% with a moderate to severely enlarged right ventricle and moderate concentric LVH. Hypertension History of DVT and pulmonary embolism on warfarin. INR was subtherapeutic on arrival. History of cerebral aneurysm Obesity with a BMI of 35 Ex-smoker. Patient recently quit approximately 1 year ago, and has a 20 -pack-year history Plan: Continue bronchodilators Start IV Solu-Medrol, 40 mg every 6 hours Start the patient on Symbicort inhaler Continue supplemental oxygen to maintain oxygen saturation of 92% or greater Empiric antibiotics were ordered and the patient is currently on doxycycline Check procalcitonin level, levels are pending Repeat PT/INR in the morning, subtherapeutic and pharmacist to adjust Coumadin dose Continue anticoagulation with pharmacy to dose warfarin We will continue to follow
[2022-11-27] MEDS: methylPREDNISolone SOD SUCCI 40 MG/ML 1 ML VIAL IV SCH ×2 (17:12→23:13)
[2022-11-27] MEDS: SPIRONOLACTONE 25 MG TAB PO SCH (20:57)
[2022-11-27] MEDS: ATORVASTATIN 10 MG TAB PO SCH (20:57)
[2022-11-27] MEDS: WARFARIN 7.5 MG TAB PO SCH (20:58)
--- NOTE | 2022-11-27 23:31 | PN ---
PROGRESS NOTE DATE OF SERVICE: 11/27/2022 CHIEF COMPLAINT: Difficulty breathing. HISTORY OF PRESENT ILLNESS: This lady is doing much better. Breathing is improving. She does have some frequency and malodor of the urine and this will be investigated. PHYSICAL EXAMINATION: CHEST: Quite clear. CARDIAC: Normal. ABDOMEN: Soft and nontender. IMPRESSION: 1. Exacerbation of chronic obstructive pulmonary disease. 2. Cardiomyopathy. 3. Congestive heart failure. 4. Atrial fibrillation. PLAN: Increase activity and she can probably go home later today or tomorrow. MMODL / IJN: [id number] /
[2022-11-28 03:49] LABS: INR 1.21 (0.90-1.11); Prothrombin Time 13.6 sec (9.9-11.9)
[2022-11-28] MEDS: DOXYCYCLINE 100 MG in SODIUM CHLORIDE 0.9% 100 ML IVPB SCH ×2 (03:50→15:27)
[2022-11-28] MEDS: carvediloL 6.25 MG TAB PO SCH (06:46)
[2022-11-28] MEDS: methylPREDNISolone SOD SUCCI 40 MG/ML 1 ML VIAL IV SCH ×2 (06:46→13:18)
[2022-11-28] MEDS: BUTALB/APAP/CAFF 50-325-40MG TAB PO PRN ×2 (06:49→15:26)
[2022-11-28 07:18] LABS: INR 1.3 (<1.2); Prothrombin Time 13.2 sec (9.0-12.0)
[2022-11-28] MEDS: SYMBICORT 160-4.5 MCG INHALER INHALATION SCH (09:25)
[2022-11-28] MEDS: IPRATROPIUM-ALBUTEROL 3 ML NEB INHALATION SCH ×3 (09:25→15:49)
--- NOTE | 2022-11-28 09:50 | P.PN ---
Subjective Progress Note Date: 11/28/22 I'm seeing this patient in new consultation today 11/26/2022 for suspected acute COPD exacerbation. This is a 57-year-old white female with past medical history significant for severe COPD with an FEV1 of 37% of predicted, chronic oxygen dependence utilizing 2 L/m nasal cannula, DVT and pulmonary embolism, nonischemic cardiomyopathy with AICD, hypertension, ex-smoker with a [id number]-[id number] history quitting approximately one year ago. Patient had a recent hospital admission for similar symptoms last month, and she has recently become established with Dr. Harden in the office. She has been struggling to pay for her Symbicort, and was switched to Wixella. Patient states that the Wixella is even more money. She states that her symptoms usually improve while on steroids, but reoccur once the steroids are tapered off. Patient presented to the emergency room early this morning for the chief symptoms of worsening shortness of breath, wheezing, and cough with minimal sputum production over the last 24 hrs. There was also associated chest heaviness without radiation. Patient denies any palpitations, lightheadedness, weight gain, orthopnea, or syncope. She denies any fever, chills, hemoptysis. Patient is currently resting in the recliner, on 2 L nasal cannula, in no acute distress. Chest x-ray on arrival showed no acute cardiopulmonary disease, and some atelectasis of the right lung base. CBC shows some leukocytosis with a WBC count of 15.6, hemoglobin 14, hematocrit 43, platelets 217,000. Blood cultures are pending. INR is subtherapeutic at 1.4. D-dimer low at 0.26. BMP was essentially unremarkable. Negative for COVID-19, influenza, RSV. Patient was started on some empiric doxy cycline. She is also receiving bronchodilators. Heart rhythm is V-paced. Vital signs are stable. On today's evaluation of 11/27/2022, the patient is resting comfortably in bed. No specific complaints. She is being treated for an acute COPD exacerbation. No chest pain. No cough or sputum production. She is on warfarin and the PT/INR needs to be adjusted by pharmacy. She is on Symbicort. She is on DuoNeb about treatments [id number]. She is on doxycycline. She is also on IV Solu-Medrol. On 11/28/2022, the patient is doing much better. No need. Respiratory status improved significantly and the patient is back to her baseline. The PT/INR is still subtherapeutic. Objective - Vital Signs Vital signs: Vital Signs Temp 97.9 F 11/28/22 07:10 Pulse 90 11/28/22 09:39 Resp 18 11/28/22 09:39 BP 125/83 11/28/22 07:10 Pulse Ox 96 11/28/22 09:25 FiO2 Intake & Output 11/27/22 11/28/22 11/28/22 18:59 06:59 18:59 Intake Total 118 Balance 118 Intake: Oral 118 Other: Voiding Method Toilet # Voids 4 3 - Exam GENERAL EXAM: Alert, 57-year-old white female, comfortable in no apparent distress. HEAD: Normocephalic and atraumatic EYES: Normal reaction of pupils, equal size. NOSE: Clear with pink turbinates. THROAT: No erythema or exudates. NECK: No masses, no JVD. CHEST: No chest wall deformity. LUNGS: Equal air entry with mild expiratory wheezes throughout. no crackles, rhonchi or focal dullness. On 2 L nasal cannula. No conversational dyspnea or accessory muscle use.. CVS: S1 and S2 normal with no audible murmur, regular rhythm. No extra heart sounds. Rate 100 bpm ABDOMEN: No hepatosplenomegaly, active bowel sounds, no guarding or rigidity. SPINE: No scoliosis or deformity SKIN: No rashes CENTRAL NERVOUS SYSTEM: No focal deficits, tone is normal in all 4 extremities. EXTREMITIES: There is mild nonpitting bilateral lower extremity edema. no clubbing, or cyanosis. Peripheral pulses are intact. - Labs CBC & Chem 7: 11/27/22 06:57 11/27/22 06:57 Labs: Abnormal Lab Results - Last 24 Hours (Table) 11/27/22 11/27/22 11/27/22 Range/Units 06:57 06:57 06:57 WBC 14.35 H (4.50-10.00) X 10*3/uL MCHC 31.9 L (32.0-37.0) g/dL RDW 16.4 H (11.5-14.5) % Immature Gran # 0.18 H (0.00-0.04) X 10*3/uL Neutrophils # 12.66 H (1.80-7.70) X 10*3/uL Eosinophils # 0 L (0.04-0.35) X 10*3/uL PT 13.6 H (9.9-11.9) sec INR 1.21 H (0.90-1.11) BUN/Creatinine Ratio 22.61 H (12.00-20.00) Ratio Glucose 147 H (70-110) mg/dL 11/28/22 Range/Units 06:31 WBC (4.50-10.00) X 10*3/uL MCHC (32.0-37.0) g/dL RDW (11.5-14.5) % Immature Gran # (0.00-0.04) X 10*3/uL Neutrophils # (1.80-7.70) X 10*3/uL Eosinophils # (0.04-0.35) X 10*3/uL PT 13.2 H (9.9-11.9) sec INR 1.3 H (0.90-1.11) BUN/Creatinine Ratio (12.00-20.00) Ratio Glucose (70-110) mg/dL Microbiology - Last 24 Hours (Table) 11/26/22 01:20 Blood Culture - Preliminary Blood 11/26/22 01:05 Blood Culture - Preliminary Blood Assessment and Plan Assessment: Acute exacerbation of the patient's known severe COPD. negative for influenza, RSV, COVID-19. Chest x-ray showed no acute cardiopulmonary process, with some right lower lobe atelectasis. The patient has severe COPD with an FEV1 of 57% of predicted maintain on Symbicort on outpatient basis. Acute on chronic hypoxemic respiratory failure secondary to above. On 2 L nasal cannula History of nonischemic cardiomyopathy with biventricular AICD. She does have history of V. fib cardiac arrest. Most recent echocardiogram on 07/21/2021 shows a preserved ejection fraction of 50-55% with a moderate to severely enlarged right ventricle and moderate concentric LVH. Hypertension History of DVT and pulmonary embolism on warfarin. INR was subtherapeutic on arrival. History of cerebral aneurysm Obesity with a BMI of 35 Ex-smoker. Patient recently quit approximately 1 year ago, and has a [id number]-[id number] history Plan: Clinically improved and the patient can discharged home on a prednisone burst taper. She can continue Symbicort on outpatient basis. Outpatient adjustment of the PT/INR through the primary care physician 9. Her INR still subtherapeutic. Therefore discharge from pulmonary standpoint.
[2022-11-28] MEDS: AMIODARONE 200 MG TAB PO SCH (10:14)
[2022-11-28 14:39] VITALS: BP 110/65; PULSE 91; RESP 17; TEMP 99
[2022-11-28] MEDS ORDERED: WARFARIN 10 MG TAB PO ONE (17:30)
[2022-11-29] MEDS ORDERED: methylPREDNISolone 4 MG TAB TAPER PO SCH (09:00)
--- NOTE | 2022-11-30 23:38 | DS ---
DISCHARGE SUMMARY CHIEF COMPLAINT: Difficulty breathing. HISTORY OF PRESENT ILLNESS AND PHYSICAL EXAMINATION: Details of this lady's history and physical can be found in the initial workup. COURSE IN THE HOSPITAL: After admission, she was placed on bedrest and started on intravenous fluids and updrafts as well as steroids. She was seen by Pulmonology. Her chest completely cleared in around 48 hours, and she was doing well. It was felt she could be discharged. She will go home on her usual activity, diet, and medications along with Medrol Dosepak, and she will be seen in the office in several days. FINAL DIAGNOSES: 1. Exacerbation of chronic obstructive pulmonary disease. 2. Atherosclerotic cardiomyopathy. 3. Coronary artery disease. 4. Previous central nervous system bleed. OPERATIONS: None. CONSULTATIONS: Pulmonology. CONDITION: She is improved. MMMARIBEL / SAKINA: [id number] /
--- NOTE | 2022-12-02 14:47 | CDI ---
Documentation Clarification Form Date: 12/02/2022 From: Lisa Gorman Admit Date: 11/26/2022 2:28:00 AM Patient Name: Sneha Beth Visit Number: [id number] Discharge Date: 11/28/2022 5:48:00 PM ATTENTION: The Clinical Documentation Specialists (CDI) and [facility] Coding Staff appreciate your assistance in clarifying documentation. Please respond to the clarification below the line at the bottom and electronically sign. The CDI & [facility] Coding staff will review the response and follow-up if needed. Please note: Queries are made part of the Legal Health Record. If you have any questions, please contact the author of this message via ITS. Dr. Daniel Mosqueda, Atrial Fibrillation is documented 11/27 Progress Note. Additional clarification regarding the type of atrial fibrillation is requested. History/Risk Factors: COPD, Respiratory Failure w/ Hypoxia, Atelectasis, CHF, HTN, and old [place] Clinical Indicators: 11/26 EKG/telemetry: Vent 99 bpm, CO 92 ms, QRS 163 ms, QT/QTc 406/463 ms Please clarify the type of atrial fibrillation, if known: [ ] Chronic [ ] Permanent [ ] Paroxysmal [ ] Persistent [ ] Other, please specify [ ] Unable to determine MTDD
--- NOTE | 2022-12-11 02:03 | MISC ---
MISCELLANOUS REPORT Atrial fibrillation, chronic. MMODL / IJN: [id number] /
== END 2022-11-28 17:48 | disposition home or self-care (01) | DRG 190 ==
LOC: EC 23:39 → 4SSUR 11-26 02:28
PROVIDERS: ADMIT Family Medicine; ATTEND Family Medicine
DX: J44.1 Chronic obstructive pulmonary disease with (acute) exacerbation (principal); J96.21 Acute and chronic respiratory failure with hypoxia; J98.11 Atelectasis; I42.8 Other cardiomyopathies; I50.32 Chronic diastolic (congestive) heart failure; I48.20 Chronic atrial fibrillation, unspecified; I11.0 Hypertensive heart disease with heart failure; Z20.822 Contact with and (suspected) exposure to COVID-19; I25.10 Atherosclerotic heart disease of native coronary artery without angina pectoris; I25.2 Old myocardial infarction; E66.9 Obesity, unspecified; Z68.35 Body mass index [BMI] 35.0-35.9, adult; F41.9 Anxiety disorder, unspecified; E78.5 Hyperlipidemia, unspecified; H91.90 Unspecified hearing loss, unspecified ear; Z99.81 Dependence on supplemental oxygen; Z79.01 Long term (current) use of anticoagulants; Z79.899 Other long term (current) drug therapy; Z86.711 Personal history of pulmonary embolism; Z95.810 Presence of automatic (implantable) cardiac defibrillator; Z87.891 Personal history of nicotine dependence; Z86.73 Personal history of transient ischemic attack (TIA), and cerebral infarction without residual deficits; Z87.01 Personal history of pneumonia (recurrent); Z71.6 Tobacco abuse counseling; Z86.74 Personal history of sudden cardiac arrest; Z86.718 Personal history of other venous thrombosis and embolism; Z59.7 Insufficient social insurance and welfare support; Z88.5 Allergy status to narcotic agent; Z86.79 Personal history of other diseases of the circulatory system
CPT/HCPCS: 36415; 71046; 80048; 80053; 83735; 84484; 85025; 85379; 85610; 85730; 87636; 93005; 94640; 94760; 96365; 96366; 96367; 96375; 96376; 99285

== ENCOUNTER 2022-12-23 16:22 | Emergency (ER) | payer MEDICARE ==
[2022-12-23 17:04] VITALS: BP 130/74; PULSE 100; RESP 20; TEMP 98
--- NOTE | 2022-12-23 17:20 | ED ---
General Adult HPI - General Source: patient, RN notes reviewed Mode of arrival: ambulatory Limitations: no limitations <Elissa Moctezuma - Last Filed: 12/23/22 17:14> <Pia Batres - Last Filed: 12/24/22 02:06> - General Chief complaint: Syncope Stated complaint: syncope - History of Present Illness Initial comments: Treatment presents emergency department chief complaint of dizziness with syncope. Patient states that earlier she was feeling lightheaded earlier today and states she fell back on the couch but she does not remember what happened. She states that her daughter believes that she passed out. She reports that she is only out for a couple seconds. Patient also reports headache that is in the frontal portion of her head she states that she has been taking Tylenol without relief. Past medical history includes COPD, CAD, PE. Denies shortness of breath, chest pain. (Elissa Moctezuma) 57-year-old female presenting with chief complaint of headache and dizziness. Patient has history of migraines, states that she has had an uncontrolled migraine ongoing for several weeks. Located primarily in the frontal region. Patient states that over the last 2 days she has had some increasing dizziness. Today she states that she was so dizzy she fell backwards out of her chair and passed out. Patient has history of aneurysm that was repaired several years ago without further issue. No chest pain, difficulty breathing, palpitations, weakness, vision or hearing changes, neck pain, fever, chills, cough, URI like symptoms. (Pia Batres) - Related Data Home Medications Medication Instructions Recorded Confirmed Spironolactone [Aldactone] 25 mg PO W/SUPPER 08/15/20 11/26/22 Amiodarone [Cordarone] 100 mg PO DAILY 06/20/21 11/26/22 Atorvastatin [Lipitor] 10 mg PO W/SUPPER 06/20/21 11/26/22 Warfarin Sodium [Jantoven] 7.5 mg PO W/SUPPER 06/20/21 11/26/22 Cholecalciferol [Vitamin D3 (125 125 mcg PO DAILY 09/05/22 11/26/22 Mcg = 5000 Iu)] Ipratropium-Albuterol Nebulize 3 ml INHALATION RT-QID PRN 09/05/22 11/26/22 [Duoneb 0.5 mg-3 mg/3 ml Soln] Multivitamins, Thera [Multivitamin 1 tab PO DAILY 09/05/22 11/26/22 (formulary)] ALPRAZolam [Xanax] 0.5 mg PO TID PRN 10/25/22 11/26/22 Albuterol Inhaler [Ventolin Hfa 2 puff INHALATION RT-QID 11/20/22 11/26/22 Inhaler] Butalb/Acetaminophen/Caffeine 1 - 2 cap PO Q4HR PRN 11/20/22 11/26/22 [Fioricet 50-300-40 mg Capsule] Previous Rx's Medication Instructions Recorded carvediloL [Coreg] 6.25 mg PO BID-W/MEALS #180 tab 04/08/20 lisinopriL [Zestril] 2.5 mg PO DAILY #90 tab 04/08/20 Budesonide-Formot 160-4.5 Mcg 2 puff INHALATION RT-BID #1 each 11/28/22 [Symbicort 160-4.5 Mcg Inhaler] methylPREDNISolone Dose Pack 24 mg PO DAILY #1 tab 11/28/22 [Medrol Dose Pack] Meclizine [Antivert] 25 mg PO BID PRN #30 tab 12/23/22 Allergies Allergy/AdvReac Type Severity Reaction Status Date / Time hydromorphone [From Dilaudid] AdvReac Nausea & Verified 11/26/22 06:34 Vomiting Review of Systems ROS Other: All systems not noted in ROS Statement are negative. <Elissa Moctezuma - Last Filed: 12/23/22 17:14> ROS Other: All systems not noted in ROS Statement are negative. <Pia Batres - Last Filed: 12/24/22 02:06> ROS Statement: Those systems with pertinent positive or pertinent negative responses have been documented in the HPI. Past Medical History Past Medical History: Chest Pain / Angina, COPD, Hyperlipidemia, Hypertension, Myocardial Infarction (ND), Pneumonia, Pulmonary Embolus (PE) Additional Past Medical History / Comment(s): cardiomyopathy, PE (6yrs ago), brain aneursym MINTO Last Myocardial Infarction Date:: 5 yrs ago History of Any Multi-Drug Resistant Organisms: None Reported Past Surgical History: AICD, Cholecystectomy, Heart Catheterization Additional Past Surgical History / Comment(s): AICD defibrillator placed 6 years ago Past Anesthesia/Blood Transfusion Reactions: No Reported Reaction Type of Cardiac Device: AICD Device Placement Date:: 2015 Past Psychological History: Anxiety, Depression Smoking Status: Former smoker Past Alcohol Use History: None Reported Past Drug Use History: None Reported - Past Family History Mother Family Medical History: Diabetes Mellitus, Hypertension Father Family Medical History: No Reported History <Elissa Moctezuma - Last Filed: 12/23/22 17:14> General Exam Limitations: no limitations <Elissa Moctezuma - Last Filed: 12/23/22 17:14> Limitations: no limitations General appearance: alert, in no apparent distress Head exam: Present: atraumatic, normocephalic, normal inspection Eye exam: Present: normal appearance, PERRL, EOMI. Absent: scleral icterus, periorbital swelling Pupils: Present: normal accommodation Neck exam: Present: normal inspection, full ROM Respiratory exam: Present: normal lung sounds bilaterally. Absent: respiratory distress, wheezes, rales, rhonchi, stridor Cardiovascular Exam: Present: regular rate, normal rhythm, normal heart sounds. Absent: systolic murmur, diastolic murmur, rubs, gallop, clicks Neurological exam: Present: alert, oriented X3, CN II-XII intact Expanded Patient oriented to: Present: person, place, time Speech: Present: fluid speech Cranial nerves: EOM's Intact: Normal Cerebellar function: Heel to [place]: Normal Motor strength exam: RUE: 5, LUE: 5, RLE: 5, LLE: 5 Eye Response: (4) open spontaneously Motor Response: (6) obeys commands Verbal Response: (5) oriented Edmund Total: 15 Psychiatric exam: Present: normal affect, normal mood Skin exam: Present: warm, dry, intact, normal color. Absent: rash <Pia Batres - Last Filed: 12/24/22 02:06> - General Exam Comments Initial Comments: Visual Physical Exam Vital signs reviewed General: Well-appearing, nontoxic, no acute distress. Head: Normocephalic, atraumatic Eyes: PERRLA, EOMI ENT: Airway patent Chest: Nonlabored breathing Skin: No visual rash, normal skin tone Neuro: Alert and oriented 3 Musculoskeletal: No gross abnormalities (Kulka,Elissa) Course Vital Signs 12/23/22 16:58 Temperature 98.0 F Pulse Rate 100 Respiratory 20 Rate Blood Pressure 130/74 O2 Sat by Pulse 92 L Oximetry Medical Decision Making - Lab Data Result diagrams: 12/23/22 17:55 12/23/22 17:55 <Pia Batres - Last Filed: 12/24/22 02:06> - Medical Decision Making Was pt. sent in by a medical professional or institution (, PA, RULING MACHINE SET UP OPERATOR, urgent care, hospital, or assisted...) When possible be specific @ -No Did you speak to anyone other than the patient for history (EMS, parent, family, police, friend...)? What history was obtained from this source @ -No Did you review nursing and triage notes (agree or disagree)? Why? @ -I reviewed and agree with nursing and triage notes Were old charts reviewed (outside hosp., previous admission, EMS record, old EK G, old radiological studies, urgent care reports/EKG's, assisted records)? Report findings @ -No old charts were reviewed Differential Diagnosis (chest pain, altered mental status, abdominal pain women, abdominal pain men, vaginal bleeding, weakness, fever, dyspnea, syncope, headache, dizziness, GI bleed, back pain, seizure, CVA, palpatations, mental health, musculoskeletal)? @ -MDM Differential Headache: Migraine, tension, cluster, carbon monoxide, central venous thrombosis, pension karma temporal arteritis, acute closure glaucoma, intercranial hemorrhage, mastoiditis, sinusitis, head injury this is not meant to be an all-inclusive list. EKG interpreted by me (3pts min.). @ -Electronic ventricular pacemaker ventricular rate 96. MS interval 91. QRS 162. QT 422. QTC 475. No ischemic changes. X-rays interpreted by me (1pt min.). @ -None done CT interpreted by me (1pt min.). @ -The brain without contrast shows no acute intracranial process. There is a persistent suprasellar mass measuring similar related to prior on 11/11/22. Mild cerebellar tonsillar ectopia CT angiogram head shows no evidence of high-grade stenosis or intracranial aneurysm U/S interpreted by me (1pt. min.). @ -None done What testing was considered but not performed or refused? (CT, X-rays, U/S, labs)? Why? @ -None What meds were considered but not given or refused? Why? @ -None Did you discuss the management of the patient with other professionals (professionals i.e. , STUART, RULING MACHINE SET UP OPERATOR, lab, RT, psych nurse, social media analyst, dexigraph operator, teacher, bank secrecy act officer, caseworker intake)? Give summary @ -No Was smoking cessation discussed for >3mins.? @ -No Was critical care preformed (if so, how long)? @ -No Were there social determinants of health that impacted care today? How? (Homelessness, low income, unemployed, alcoholism, drug addiction, transportation, low edu. Level, literacy, decrease access to med. care, long term, rehab)? @ -No Was there de-escalation of care discussed even if they declined (Discuss DNR or withdrawal of care, Hospice)? DNR status @ -No What co-morbidities impacted this encounter? (DM, HTN, Smoking, COPD, CAD, Cancer, CVA, ARF, Chemo, Hep., AIDS, mental health diagnosis, sleep apnea, morbi d obesity)? @ -None Was patient admitted / discharged? Hospital course, mention meds given and route, prescriptions, significant lab abnormalities, going to OR and other pertinent info. @ -57-year-old female presenting with chief complaint of persistent migraine and dizziness. She did have an episode of dizziness which caused her to fall t lottie, believes she may have passed out at this time but unsure. On physical examination there are no focal neurological deficits. WBC 10.8. CMP unremarkable. Negative troponin and EKG shows no ischemic changes. Urine shows signs of contamination. CT of the brain without contrast and CTA shows no acute process including no aneurysm. On reassessment patient reports improvement in her symptoms. She is sent home with a prescription for meclizine. Follow-up with PCP. Report back to ER with any new or worsening symptoms. Discussed return parameters and answered all questions. Patient conveyed verbal understanding and agreed to the plan. I discussed this case in detail with my attending Dr. Turner Undiagnosed new problem with uncertain prognosis? @ -No Drug Therapy requiring intensive monitoring for toxicity (Heparin, Nitro, Insulin, Cardizem)? @ -No Were any procedures done? @ -No Diagnosis/symptom? @ -Migraine Acute, or Chronic, or Acute on Chronic? @ -Acute on chronic Uncomplicated (without systemic symptoms) or Complicated (systemic symptoms)? @ -Uncomplicated Side effects of treatment? @ -No Exacerbation, Progression, or Severe Exacerbation? @ -No Poses a threat to life or bodily function? How? (Chest pain, USA, ND, pneumonia, PE, COPD, DKA, ARF, appy, cholecystitis, CVA, Diverticulitis, Homicidal, Suicidal, threat to staff... and all critical care pts) @ -No (Pia Batres) - Lab Data Lab Results 12/23/22 12/23/22 12/23/22 Range/Units 17:55 17:55 17:55 WBC 10.8 H (3.8-10.6) k/uL RBC 4.60 (3.80-5.40) m/uL Hgb 13.8 (11.4-16.0) gm/dL Hct 40.1 (34.0-46.0) % MCV 87.3 (80.0-100.0) fL MCH 29.9 (25.0-35.0) pg MCHC 34.3 (31.0-37.0) g/dL RDW 17.0 H (11.5-15.5) % Plt Count 213 (150-450) k/uL MPV 8.8 Neutrophils % 72 % Lymphocytes % 18 % Monocytes % 6 % Eosinophils % 2 % Basophils % 0 % Neutrophils # 7.8 H (1.3-7.7) k/uL Lymphocytes # 2.0 (1.0-4.8) k/uL Monocytes # 0.7 (0-1.0) k/uL Eosinophils # 0.2 (0-0.7) k/uL Basophils # 0.0 (0-0.2) k/uL Poikilocytosis Slight Anisocytosis Slight PT 18.7 H (9.0-12.0) sec INR 1.9 H (<1.2) APTT 28.9 (22.0-30.0) sec Sodium 138 (137-145) mmol/L Potassium 3.9 (3.5-5.1) mmol/L Chloride 99 (98-107) mmol/L Carbon Dioxide 29 (22-30) mmol/L Anion Gap 10 mmol/L BUN 12 (7-17) mg/dL Creatinine 0.68 (0.52-1.04) mg/dL Est GFR (CKD-EPI)AfAm >90 (>60 ml/min/1.73 sqM) Est GFR (CKD-EPI)NonAf >90 (>60 ml/min/1.73 sqM) Glucose 98 (74-99) mg/dL Calcium 9.2 (8.4-10.2) mg/dL Total Bilirubin 0.9 (0.2-1.3) mg/dL AST 19 (14-36) U/L ALT 25 (4-34) U/L Alkaline Phosphatase 81 (38-126) U/L Troponin I (0.000-0.034) ng/mL Total Protein 6.7 (6.3-8.2) g/dL Albumin 4.1 (3.5-5.0) g/dL Urine Color Urine Appearance (Clear) Urine pH (5.0-8.0) Ur Specific [place] (1.001-1.035) Urine Protein (Negative) Urine Glucose (UA) (Negative) Urine Ketones (Negative) Urine Blood (Negative) Urine Nitrite (Negative) Urine Bilirubin (Negative) Urine Urobilinogen (<2.0) mg/dL Ur Leukocyte Esterase (Negative) Urine RBC (0-5) /hpf Urine WBC (0-5) /hpf Ur Squamous Epith Cells (0-4) /hpf Urine Bacteria (None) /hpf Urine Mucus (None) /hpf 12/23/22 12/23/22 Range/Units 17:55 17:59 WBC (3.8-10.6) k/uL RBC (3.80-5.40) m/uL Hgb (11.4-16.0) gm/dL Hct (34.0-46.0) % MCV (80.0-100.0) fL MCH (25.0-35.0) pg MCHC (31.0-37.0) g/dL RDW (11.5-15.5) % Plt Count (150-450) k/uL MPV Neutrophils % % Lymphocytes % % Monocytes % % Eosinophils % % Basophils % % Neutrophils # (1.3-7.7) k/uL Lymphocytes # (1.0-4.8) k/uL Monocytes # (0-1.0) k/uL Eosinophils # (0-0.7) k/uL Basophils # (0-0.2) k/uL Poikilocytosis Anisocytosis PT (9.0-12.0) sec INR (<1.2) APTT (22.0-30.0) sec Sodium (137-145) mmol/L Potassium (3.5-5.1) mmol/L Chloride (98-107) mmol/L Carbon Dioxide (22-30) mmol/L Anion Gap mmol/L BUN (7-17) mg/dL Creatinine (0.52-1.04) mg/dL Est GFR (CKD-EPI)AfAm (>60 ml/min/1.73 sqM) Est GFR (CKD-EPI)NonAf (>60 ml/min/1.73 sqM) Glucose (74-99) mg/dL Calcium (8.4-10.2) mg/dL Total Bilirubin (0.2-1.3) mg/dL AST (14-36) U/L ALT (4-34) U/L Alkaline Phosphatase (38-126) U/L Troponin I <0.012 (0.000-0.034) ng/mL Total Protein (6.3-8.2) g/dL Albumin (3.5-5.0) g/dL Urine Color Yellow Urine Appearance Cloudy H (Clear) Urine pH 5.5 (5.0-8.0) Ur Specific [place] 1.018 (1.001-1.035) Urine Protein Negative (Negative) Urine Glucose (UA) Negative (Negative) Urine Ketones Negative (Negative) Urine Blood Negative (Negative) Urine Nitrite Negative (Negative) Urine Bilirubin Negative (Negative) Urine Urobilinogen <2.0 (<2.0) mg/dL Ur Leukocyte Esterase Moderate H (Negative) Urine RBC 1 (0-5) /hpf Urine WBC 4 (0-5) /hpf Ur Squamous Epith Cells 6 H (0-4) /hpf Urine Bacteria Rare H (None) /hpf Urine Mucus Rare H (None) /hpf Disposition <Elissa Moctezuma - Last Filed: 12/23/22 17:14> Is patient prescribed a controlled substance at d/c from ED?: No <Pia Batres - Last Filed: 12/24/22 02:06> Clinical Impression: Migraine Disposition: HOME SELF-CARE Condition: Good Instructions (If sedation given, give patient instructions): Migraine Headache (ED), Benign Paroxysmal Positional Vertigo (ED) Additional Instructions: Follow-up with PCP. Report back to ER with any new or worsening symptoms. Take medication as prescribed. Prescriptions: Meclizine [Antivert] 25 mg PO BID PRN #30 tab PRN Reason: Vertigo Referrals: Daniel Mosqueda MD [Primary Care Provider] - 1-2 days
[2022-12-23 18:22] LABS: Anisocytosis Slight; Basophils % (A) 0 %; Eosinophils # (A) 0.2 k/uL (0-0.7); Eosinophils % (A) 2 %; HCT 40.1 % (34.0-46.0); HGB 13.8 gm/dL (11.4-16.0); Lymphocytes % (A) 18 %; MCH 29.9 pg (25.0-35.0); MCHC 34.3 g/dL (31.0-37.0); MCV 87.3 fL (80.0-100.0); Mean Platelet Volume 8.8; Monocytes # (A) 0.7 k/uL (0-1.0); Monocytes % (A) 6 %; Neutrophils # (A) 7.8 k/uL (1.3-7.7); Neutrophils % (A) 72 %; Platelet Count 213 k/uL (150-450); Poikilocytosis Slight; WBC 10.8 k/uL (3.8-10.6)
[2022-12-23 18:29] LABS: Appearance,Urine Cloudy (Clear); Bacteria,Urine Rare /hpf; Bilirubin,Urine Negative (Negative); Blood,Urine Negative (Negative); Color,Urine Yellow; Glucose,Urine (UA) Negative (Negative); Ketones,Urine Negative (Negative); Leukocyte Esterase,Urine Moderate (Negative); Mucus,Urine Rare /hpf; Nitrite,Urine Negative (Negative); PH, Urine 5.5 (5.0-8.0); Protein,Urine Negative (Negative); RBC,Urine 1 /hpf (0-5); Specific Gravity,Urine 1.018 (1.001-1.035); Squamous Epithelial Cell,Urine 6 /hpf (0-4); Urobilinogen,Urine <2.0 mg/dL (<2.0); WBC,Urine 4 /hpf (0-5)
[2022-12-23 18:30] LABS: INR 1.9 (<1.2); Partial Thromboplastin Time 28.9 sec (22.0-30.0); Prothrombin Time 18.7 sec (9.0-12.0)
[2022-12-23 18:43] LABS: ALT 25 U/L (4-34); AST 19 U/L (14-36); African American GFR (CKD) >90 (>60 ml/min/1.73 sqM); Albumin 4.1 g/dL (3.5-5.0); Alkaline Phosphatase 81 U/L (38-126); Anion Gap 10 mmol/L; Blood Urea Nitrogen 12 mg/dL (7-17); Calcium 9.2 mg/dL (8.4-10.2); Carbon Dioxide 29 mmol/L (22-30); Chloride 99 mmol/L (98-107); Glucose 98 mg/dL (74-99); Non-African American GFR(CKD) >90 (>60 ml/min/1.73 sqM); Potassium 3.9 mmol/L (3.5-5.1); Sodium 138 mmol/L (137-145); Total Bilirubin 0.9 mg/dL (0.2-1.3); Total Protein 6.7 g/dL (6.3-8.2)
[2022-12-23] MEDS ORDERED: ACETAMINOPHEN TAB 325 MG TAB PO STA (19:55)
[2022-12-23] MEDS ORDERED: METOCLOPRAMIDE 5 MG/ML 2 ML VIAL IVP STA (19:55)
[2022-12-23] MEDS ORDERED: MECLIZINE 12.5 MG TAB PO STA (19:55)
--- NOTE | 2022-12-23 22:19 | CT ---
EXAMINATION TYPE: CT brain wo con CT DLP: 1141.6 mGycm, Automated exposure control for dose reduction was used. DATE OF EXAM: 12/23/2022 9:22 PM COMPARISON: 11/11/2022. CLINICAL INDICATION:Female, 57 years old with history of headache, dizziness, hx of aneurysm, headach e and dizziness x 2months. hx of brain aneurysm TECHNIQUE: Brain: Axial CT images of the brain were obtained with coronal and sagittal reformats created and rev iewed. Contrast used: None. Oral contrast used: None. FINDINGS: Brain: Extra-axial spaces: No abnormal extra-axial fluid collections. Redemonstration extra-axial suprasella r mass measuring 1.6 x 1.4 cm the mass does not appear to be arising from a vessel. Comparing to CTA brain. Ventricular system: Within normal limits Cerebral parenchyma: No acute intraparenchymal hemorrhage or mass effect. The foster-white junction is well differentiated. Cerebellum: Similar low lying cerebellar tonsils extending 1 to 2 mm below the foramen magnum. Mass effect: No evidence of midline shift. Intracranial vasculature: Atherosclerotic calcifications of the intracranial vessels. Soft tissues: Normal. Calvarium/osseous structures: No depressed skull fracture. Paranasal sinuses and mastoid air cells: Mild scattered paranasal sinus disease. Visualized orbits: Orbital contents are intact. IMPRESSION: 1. No acute intracranial process. 2. Persistent suprasellar mass measuring similarly to prior on 11/11/2022. This has not not incomplet sivan characterized. A MRI brain pituitary mass protocol is recommended for complete evaluation as this does not appear to be an aneurysm. This has the appearance of a snowman shape and could be arising f rom the pituitary and represent pituitary macroadenoma. 3. Mild cerebellar tonsillar ectopia.
--- NOTE | 2022-12-23 22:19 | CT ---
EXAMINATION TYPE: CT angio head CT DLP: 672.6 mGycm, Automated exposure control for dose reduction was used. DATE OF EXAM: 12/23/2022 9:33 PM COMPARISON: Same day CT. CLINICAL INDICATION:Female, 57 years old with history of headache, dizziness, hx of aneurysm; PHH, he adache and dizziness x 2months. hx of brain aneurysm TECHNIQUE: Axially acquired helical CT angiogram of the head and neck was obtained with contrast util izing 65 cc of [id number]-[id number] administered intravenously. Axial images are supplemented with 3D reconstru ctions which were post-processed at an independent workstation. NASCET criteria used. FINDINGS: Vertebral arteries: The vertebral arteries are patent. Vertebral artery dominance: Codominant Basilar artery: The basilar artery is intact. The basilar artery bifurcation is normal. Internal Carotid arteries: The cervical, petrous, cavernous and supraclinoid segments are normal. ANTIONETTE: Patent with no evidence of aneurysm. ACOM: Present without evidence of aneurysm. MCA: Patent with no evidence of aneurysm. CONSUMER ELECTRONIC RETAIL SPECIALIST: Patent with no evidence of aneurysm. origin of the right posterior cerebral artery. PCOM: Hypoplastic left. Dural sinuses: Patent. Suprasellar mass measuring 1.6 x 1.4 cm similar prior CTs. IMPRESSION: 1. No evidence of high-grade stenosis or intracranial aneurysm. 2. Persistent suprasellar mass measuring similarly to prior on 11/11/2022. This has not not incomplet sivan characterized. A MRI brain pituitary mass protocol is recommended for complete evaluation as this does not appear to be an aneurysm. This has the appearance of a snowman shape and could be arising f rom the pituitary and represent pituitary macroadenoma.
[2022-12-23] MEDS ORDERED: DEXAMETHASONE SOD PHOSPHATE 10 MG/ML 1 ML VIAL IVP STA (22:28)
[2022-12-23] MEDS ORDERED: KETOROLAC 15 MG/ML 1 ML VIAL IVP STA (22:28)
== END 2022-12-24 01:46 | disposition home or self-care (01) ==
LOC: EC 16:22
DX: G43.909 Migraine, unspecified, not intractable, without status migrainosus (principal); I42.9 Cardiomyopathy, unspecified; J44.9 Chronic obstructive pulmonary disease, unspecified; E78.5 Hyperlipidemia, unspecified; I10 Essential (primary) hypertension; I25.2 Old myocardial infarction; F41.9 Anxiety disorder, unspecified; F32.A Depression, unspecified; Z87.891 Personal history of nicotine dependence; Z86.73 Personal history of transient ischemic attack (TIA), and cerebral infarction without residual deficits; Z79.01 Long term (current) use of anticoagulants; Z79.899 Other long term (current) drug therapy; Z88.6 Allergy status to analgesic agent; Z88.5 Allergy status to narcotic agent
CPT/HCPCS: 36415; 93005; 80053; 84484; 85025; 85610; 85730; 81001; 70496; 70450; 99284; 96374; 96375 ×2; J1100; J2765; J1885; Q9967

== ENCOUNTER 2023-03-09 14:37 | Emergency (ER) | payer MEDICARE ==
[2023-03-09] MEDS ORDERED: diphenhydrAMINE 50 MG/ML 1 ML VIAL IVP STA (15:24)
[2023-03-09] MEDS ORDERED: SODIUM CHLORIDE 0.9% 1,000 ML IV STA (15:24)
[2023-03-09] MEDS ORDERED: MAGNESIUM SULFATE-D5W PMX 1 GM in DEXTROSE/WATER 1 100ML.BAG IVPB ONE (15:25)
[2023-03-09] MEDS ORDERED: METOCLOPRAMIDE 5 MG/ML 2 ML VIAL IVP STA (15:25)
[2023-03-09] MEDS ORDERED: DEXAMETHASONE SOD PHOSPHATE 10 MG/ML 1 ML VIAL IVP STA (15:25)
[2023-03-09 15:56] LABS: Basophils % (A) 0 %; Eosinophils # (A) 0.4 k/uL (0-0.7); Eosinophils % (A) 5 %; HCT 37.3 % (34.0-46.0); HGB 13.1 gm/dL (11.4-16.0); Lymphocytes # (A) 1.7 k/uL (1.0-4.8); Lymphocytes % (A) 22 %; MCH 29.8 pg (25.0-35.0); MCHC 35.1 g/dL (31.0-37.0); MCV 85.1 fL (80.0-100.0); Mean Platelet Volume 9.7; Monocytes # (A) 0.6 k/uL (0-1.0); Monocytes % (A) 7 %; Neutrophils # (A) 5.2 k/uL (1.3-7.7); Neutrophils % (A) 65 %; Platelet Count 165 k/uL (150-450); Poikilocytosis Slight; RBC 4.38 m/uL (3.80-5.40); RDW 15.4 % (11.5-15.5)
[2023-03-09 16:04] VITALS: BP 111/79
[2023-03-09 16:09] LABS: INR 2.4 (<1.2); Prothrombin Time 23.7 sec (9.0-12.0)
[2023-03-09 16:24] LABS: ALT 39 U/L (4-34); AST 47 U/L (14-36); African American GFR (CKD) >90 (>60 ml/min/1.73 sqM); Albumin 4.3 g/dL (3.5-5.0); Alkaline Phosphatase 81 U/L (38-126); Anion Gap 8 mmol/L; Blood Urea Nitrogen 13 mg/dL (7-17); Calcium 9.4 mg/dL (8.4-10.2); Carbon Dioxide 28 mmol/L (22-30); Chloride 100 mmol/L (98-107); Glucose 108 mg/dL (74-99); Non-African American GFR(CKD) >90 (>60 ml/min/1.73 sqM); Sodium 136 mmol/L (137-145); Total Bilirubin 0.9 mg/dL (0.2-1.3); Total Protein 7.3 g/dL (6.3-8.2)
--- NOTE | 2023-03-09 16:32 | ED ---
Dizziness HPI - General Chief Complaint: Dizziness Stated Complaint: lightheaded, dizzy, headache, Time Seen by Provider: 03/09/23 15:07 Source: patient Mode of arrival: wheelchair Limitations: no limitations - History of Present Illness Initial Comments: 57-year-old female past mental history of cardiomyopathy, PE anticoagulated on Coumadin who presents to the emergency department reporting room spinning sensation and headache. Patient has history of recurrent migraines and takes Fioricet. States that she took a Fioricet at home at 9 AM without improvement in her symptoms. Her migraines frequently make her dizzy and therefore she additionally took a meclizine. She continued to have a headache with dizziness and called her primary care office. They recommend that she come to the emergency department since she has a history of pituitary adenoma. Patient denies any visual changes. Does have some tinnitus. Denies any fevers. No recent upper respiratory infections. Denies any sick contacts. No nausea or vomiting. Denies any head injuries. No unilateral numbness or weakness. Denies chest pain or shortness of breath. No ataxia. No other alleviating, precipitating or modifying factors - Related Data Home Medications Medication Instructions Recorded Confirmed Spironolactone [Aldactone] 25 mg PO HS 08/15/20 03/09/23 Amiodarone [Cordarone] 200 mg PO DAILY 06/20/21 03/09/23 Atorvastatin [Lipitor] 10 mg PO HS 06/20/21 03/09/23 Ipratropium-Albuterol Nebulize 3 ml INHALATION RT-TID 09/05/22 03/09/23 [Duoneb 0.5 mg-3 mg/3 ml Soln] Multivitamins, Thera [Multivitamin 1 tab PO DAILY 09/05/22 03/09/23 (formulary)] ALPRAZolam [Xanax] 0.5 mg PO DAILY PRN 10/25/22 03/09/23 Albuterol Inhaler [Ventolin Hfa 2 puff INHALATION RT-QID PRN 11/20/22 03/09/23 Inhaler] Butalb/Acetaminophen/Caffeine 1 - 2 cap PO Q4HR PRN 11/20/22 03/09/23 [Fioricet 50-300-40 mg Capsule] Furosemide [Lasix] 40 mg PO DAILY 03/09/23 03/09/23 Meclizine [Antivert] 25 mg PO HS 03/09/23 03/09/23 Warfarin [Coumadin] 5 mg PO HS 03/09/23 03/09/23 Previous Rx's Medication Instructions Recorded carvediloL [Coreg] 6.25 mg PO BID-W/MEALS #180 tab 04/08/20 lisinopriL [Zestril] 2.5 mg PO DAILY #90 tab 04/08/20 Amoxicillin 875 mg PO Q12HR #20 tablet 03/09/23 Allergies Allergy/AdvReac Type Severity Reaction Status Date / Time hydromorphone [From Dilaudid] AdvReac Nausea & Verified 03/09/23 16:00 Vomiting Review of Systems ROS Statement: Those systems with pertinent positive or pertinent negative responses have been documented in the HPI. ROS Other: All systems not noted in ROS Statement are negative. Past Medical History Past Medical History: Chest Pain / Angina, COPD, Hyperlipidemia, Hypertension, Myocardial Infarction ([place]), Pneumonia, Pulmonary Embolus (PE) Additional Past Medical History / Comment(s): cardiomyopathy, PE (6yrs ago), brain aneursym [place] Last Myocardial Infarction Date:: 5 yrs ago History of Any Multi-Drug Resistant Organisms: None Reported Past Surgical History: AICD, Cholecystectomy, Heart Catheterization Additional Past Surgical History / Comment(s): AICD defibrillator placed 6 years ago Past Anesthesia/Blood Transfusion Reactions: No Reported Reaction Type of Cardiac Device: AICD Device Placement Date:: 2015 Past Psychological History: Anxiety, Depression Smoking Status: Former smoker Past Alcohol Use History: None Reported Past Drug Use History: None Reported - Past Family History Mother Family Medical History: Diabetes Mellitus, Hypertension Father Family Medical History: No Reported History General Exam Limitations: no limitations General appearance: alert, in no apparent distress Head exam: Present: atraumatic, normocephalic, normal inspection Eye exam: Present: normal appearance, PERRL, EOMI. Absent: scleral icterus, conjunctival injection, periorbital swelling ENT exam: Present: normal oropharynx, other (Right tympanic membrane is perforated. Surrounding redness and opacity. No active drainage from the ear. Left tympanic membrane is rodriguez and transparent) Neck exam: Present: normal inspection. Absent: tenderness, meningismus, lymphadenopathy Respiratory exam: Present: normal lung sounds bilaterally. Absent: respiratory distress, wheezes, rales, rhonchi, stridor Cardiovascular Exam: Present: regular rate, normal rhythm, normal heart sounds. Absent: systolic murmur, diastolic murmur, rubs, gallop, clicks GI/Abdominal exam: Present: soft, normal bowel sounds. Absent: distended, tenderness, guarding, rebound, rigid Extremities exam: Present: normal inspection, full ROM, normal capillary refill. Absent: tenderness, pedal edema, joint swelling, calf tenderness Back exam: Present: normal inspection Neurological exam: Present: alert, oriented X3, CN II-XII intact Psychiatric exam: Present: normal affect, normal mood Skin exam: Present: warm, dry, intact, normal color. Absent: rash Course Vital Signs 03/09/23 03/09/23 14:46 16:03 Temperature 99.8 F H Pulse Rate 99 92 Respiratory 16 18 Rate Blood Pressure 114/81 111/79 O2 Sat by Pulse 98 92 L Oximetry Medical Decision Making - Medical Decision Making Was pt. sent in by a medical professional or institution (, PA, [employer], urgent care, hospital, or [place] health care facility...) When possible be specific @ -Dr. Rao office Did you speak to anyone other than the patient for history (EMS, parent, family, police, friend...)? What history was obtained from this source @ -No Did you review nursing and triage notes (agree or disagree)? Why? @ -I reviewed and agree with nursing and triage notes Were old charts reviewed (outside hosp., previous admission, EMS record, old EKG, old radiological studies, urgent care reports/EKG's, [place] health care facility records)? Report findings @ -I reviewed the patient's ER visit from December [address] and CT angiography performed of her brain due to dizziness and migraine Differential Diagnosis (chest pain, altered mental status, abdominal pain women, abdominal pain men, vaginal bleeding, weakness, fever, dyspnea, syncope, headache, dizziness, GI bleed, back pain, seizure, CVA, palpatations, mental health, musculoskeletal)? @ -Differential Headache: Migraine, tension, cluster, carbon monoxide, central venous thrombosis, pension karma temporal arteritis, acute closure glaucoma, intercranial hemorrhage, mastoiditis, sinusitis, head injury, this is not meant to be an all-inclusive list. EKG interpreted by me (3pts min.). @ -Yes and demonstrates a paced rhythm. Rate of 95. NC interval 110. QRS 181. QTC of 482. Pacemaker captures appropriately. No ST elevation or depression consistent with ischemia or infarction X-rays interpreted by me (1pt min.). @ -Not completed CT interpreted by me (1pt min.). @ -Yes and demonstrates stable appearance to her pituitary tumor U/S interpreted by me (1pt. min.). @ -None done What testing was considered but not performed or refused? (CT, X-rays, U/S, labs)? Why? @ -None What meds were considered but not given or refused? Why? @ -Valium was considered however patient states she does not feel like she would tolerate this medication Did you discuss the management of the patient with other professionals (professionals i.e. , PA, [employer], lab, RT, psych nurse, social media marketing specialist, outpatient admitting clerk, teacher, unarmed security officer, rehabilitation case coordinator)? Give summary @ -No Was smoking cessation discussed for >3mins.? @ -No Was critical care preformed (if so, how long)? @ -No Were there social determinants of health that impacted care today? How? (Homelessness, low income, unemployed, alcoholism, drug addiction, transportation, low edu. Level, literacy, decrease access to med. care, halfway, rehab)? @ -No Was there de-escalation of care discussed even if they declined (Discuss DNR or withdrawal of care, Hospice)? DNR status @ -No What co-morbidities impacted this encounter? (DM, HTN, Smoking, COPD, CAD, Cancer, CVA, ARF, Chemo, Hep., AIDS, mental health diagnosis, sleep apnea, morbid obesity)? @ -A. fib, cardiomyopathy with defibrillator and pacemaker, migraines Was patient admitted / discharged? Hospital course, mention meds given and route, prescriptions, significant lab abnormalities, going to OR and other pertinent info. @ -Arrival patient was placed into room 2. A thorough history and physical exam was performed. IV was established. Laboratory studies are conducted. Patient was given a liter of fluid, 10 mg of Reglan, 1 g of magnesium, 25 mg of Benadryl and 10 mg of Decadron for her migraine headache. She is sent for CT of her head is she does have a known pituitary tumor which appears stable in size. No other acute intracranial findings. Laboratory studies are reviewed. Patient's INR is therapeutic at 2.4. Mild elevation in her liver enzymes however all studies within normal limits. Pacemaker is capturing appropriately on EKG. Results are discussed the patient she feels comfortable. States that her dizziness is markedly improved at this time. She is given a dose of amoxicillin for her right otitis media with perforation. Stated that the patient needs to follow-up at her scheduled appointment with Dr. Jaylin parra for reevaluation. Recommend that she see ENT for her perforated tympanic membrane. Return for any new symptoms. Patient was agreeable and discharged in stable condition Undiagnosed new problem with uncertain prognosis? @ -Yes Drug Therapy requiring intensive monitoring for toxicity (Heparin, Nitro, Insulin, Cardizem)? @ -No Were any procedures done? @ -No Diagnosis/symptom? @ -Acute exacerbation of vertigo, acute right otitis media with tympanic membrane perforation, acute exacerbation of chronic migraines Acute, or Chronic, or Acute on Chronic? @ -see above Uncomplicated (without systemic symptoms) or Complicated (systemic symptoms)? @ -complicated Side effects of treatment? @ -No Exacerbation, Progression, or Severe Exacerbation? @ -No Poses a threat to life or bodily function? How? (Chest pain, [place], [place], pneumonia, PE, COPD, DKA, ARF, appy, cholecystitis, CVA, Diverticulitis, Homicidal, Suicidal, threat to staff... and all critical care pts) @ -No - Lab Data Result diagrams: 03/09/23 15:30 03/09/23 15:30 Lab Results 03/09/23 03/09/23 03/09/23 Range/Units 15:30 15:30 15:30 WBC 8.0 (3.8-10.6) k/uL RBC 4.38 (3.80-5.40) m/uL Hgb 13.1 (11.4-16.0) gm/dL Hct 37.3 (34.0-46.0) % MCV 85.1 (80.0-100.0) fL MCH 29.8 (25.0-35.0) pg MCHC 35.1 (31.0-37.0) g/dL RDW 15.4 (11.5-15.5) % Plt Count 165 (150-450) k/uL MPV 9.7 Neutrophils % 65 % Lymphocytes % 22 % Monocytes % 7 % Eosinophils % 5 % Basophils % 0 % Neutrophils # 5.2 (1.3-7.7) k/uL Lymphocytes # 1.7 (1.0-4.8) k/uL Monocytes # 0.6 (0-1.0) k/uL Eosinophils # 0.4 (0-0.7) k/uL Basophils # 0.0 (0-0.2) k/uL Poikilocytosis Slight PT 23.7 H (9.0-12.0) sec INR 2.4 H (<1.2) Sodium 136 L (137-145) mmol/L Potassium 4.2 (3.5-5.1) mmol/L Chloride 100 (98-107) mmol/L Carbon Dioxide 28 (22-30) mmol/L Anion Gap 8 mmol/L BUN 13 (7-17) mg/dL Creatinine 0.71 (0.52-1.04) mg/dL Est GFR (CKD-EPI)AfAm >90 (>60 ml/min/1.73 sqM) Est GFR (CKD-EPI)NonAf >90 (>60 ml/min/1.73 sqM) Glucose 108 H (74-99) mg/dL Calcium 9.4 (8.4-10.2) mg/dL Total Bilirubin 0.9 (0.2-1.3) mg/dL AST 47 H (14-36) U/L ALT 39 H (4-34) U/L Alkaline Phosphatase 81 (38-126) U/L Troponin I (0.000-0.034) ng/mL Total Protein 7.3 (6.3-8.2) g/dL Albumin 4.3 (3.5-5.0) g/dL 03/09/23 Range/Units 15:30 WBC (3.8-10.6) k/uL RBC (3.80-5.40) m/uL Hgb (11.4-16.0) gm/dL Hct (34.0-46.0) % MCV (80.0-100.0) fL MCH (25.0-35.0) pg MCHC (31.0-37.0) g/dL RDW (11.5-15.5) % Plt Count (150-450) k/uL MPV Neutrophils % % Lymphocytes % % Monocytes % % Eosinophils % % Basophils % % Neutrophils # (1.3-7.7) k/uL Lymphocytes # (1.0-4.8) k/uL Monocytes # (0-1.0) k/uL Eosinophils # (0-0.7) k/uL Basophils # (0-0.2) k/uL Poikilocytosis PT (9.0-12.0) sec INR (<1.2) Sodium (137-145) mmol/L Potassium (3.5-5.1) mmol/L Chloride (98-107) mmol/L Carbon Dioxide (22-30) mmol/L Anion Gap mmol/L BUN (7-17) mg/dL Creatinine (0.52-1.04) mg/dL Est GFR (CKD-EPI)AfAm (>60 ml/min/1.73 sqM) Est GFR (CKD-EPI)NonAf (>60 ml/min/1.73 sqM) Glucose (74-99) mg/dL Calcium (8.4-10.2) mg/dL Total Bilirubin (0.2-1.3) mg/dL AST (14-36) U/L ALT (4-34) U/L Alkaline Phosphatase (38-126) U/L Troponin I <0.012 (0.000-0.034) ng/mL Total Protein (6.3-8.2) g/dL Albumin (3.5-5.0) g/dL Disposition Clinical Impression: Otitis media, acute with perforation of eardrum, Vertigo, Migraine Disposition: HOME SELF-CARE Condition: Stable Instructions (If sedation given, give patient instructions): Ear Infection (ED), Dizziness (ED) Additional Instructions: Please take the antibiotics twice daily as directed. You may use the meclizine for dizziness up to 3 times daily. Follow-up with your primary care doctor at your scheduled appointment. Return for any new or worsening symptoms Prescriptions: Amoxicillin 875 mg PO Q12HR #20 tablet Is patient prescribed a controlled substance at d/c from ED?: No Referrals: Daniel Mosqueda MD [Primary Care Provider] - 1-2 days Reinier Trinidad DO [Doctor of Osteopathic Medicine] - 1-2 days Time of Disposition: 17:09
[2023-03-09 16:42] LABS: Potassium 4.2 mmol/L (3.5-5.1)
--- NOTE | 2023-03-09 16:42 | CT ---
EXAMINATION TYPE: CT brain wo con DATE OF EXAM: 03/09/2023 COMPARISON: 12/23/2022 HISTORY: Migraine, vertigo, pituitary tumor. CT DLP: 1185.[address] of the brain was performed. The ventricles, basal cisterns and sulci overlying the cerebral convexities demonstrate mild enlargem ent. There is no evidence for intracranial hemorrhage or sulcal effacement. There is decreased attenuation about the periventricular white matter and deep white matter of both c erebral hemispheres, compatible with chronic small vessel ischemia. Differential diagnosis does inclu de demyelination. No mass effects are seen.No midline shift. There is stable sellar/suprasellar mass which likely refle cts a pituitary macroadenoma unchanged relative to the prior study. No additional masses are seen. Osseous calvarium is intact. If symptoms persist consider MRI. IMPRESSION: 1. Age related atrophic and chronic small vessel ischemic change without acute intracranial process s een at this time. 2. 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
[2023-03-09 16:56] VITALS: TEMP 99.8
[2023-03-09] MEDS ORDERED: AMOXICILLIN 875 MG TAB PO STA (17:04)
[2023-03-09 17:22] VITALS: PULSE 89; RESP 19
== END 2023-03-09 17:40 | disposition home or self-care (01) ==
LOC: EC 14:37
DX: H66.91 Otitis media, unspecified, right ear (principal); H72.91 Unspecified perforation of tympanic membrane, right ear; R42 Dizziness and giddiness; G43.909 Migraine, unspecified, not intractable, without status migrainosus; I67.82 Cerebral ischemia; J44.9 Chronic obstructive pulmonary disease, unspecified; E78.5 Hyperlipidemia, unspecified; I10 Essential (primary) hypertension; I25.2 Old myocardial infarction; F41.9 Anxiety disorder, unspecified; F32.A Depression, unspecified; Z87.891 Personal history of nicotine dependence; Z79.899 Other long term (current) drug therapy; Z88.6 Allergy status to analgesic agent; Z95.810 Presence of automatic (implantable) cardiac defibrillator; Z88.5 Allergy status to narcotic agent
CPT/HCPCS: 93005; 80053; 84484; 85025; 85610; 70450; 99285; 96365; 96375 ×3; J1200; J1100; J2765; J3475; 36415

== ENCOUNTER 2023-05-08 20:18 | Observation (INO) | payer MEDICARE ==
[2023-05-08] MEDS ORDERED: KETOROLAC 15 MG/ML 1 ML VIAL IVP STA (20:46)
[2023-05-08] MEDS ORDERED: MORPHINE SULFATE 2 MG/ML SYRINGE IVP STA (20:46)
--- NOTE | 2023-05-08 20:51 | ED ---
Chest Pain HPI - General Chief Complaint: Chest Pain Stated Complaint: Chest heaviness,sob Time Seen by Provider: 05/08/23 20:38 Source: patient, RN notes reviewed Mode of arrival: ambulatory Limitations: no limitations - History of Present Illness Initial Comments: This is a 57-year-old female who presents to the emergency department for pain in the bilateral rib cage, back, and neck. States that she's had neck pain and stiffness over the last 2-3 days, and last night started developing pain and tightness to the bilateral rib cage and mid back. Pain is described as a "tightness". She does have a substantial cardiac history, but states that this is unlike anything she has ever experienced before. Also has not seen her security threat analyst in "a long time". Pain is worse with inhalation and movement. She is always short of breath, but states that she is more short of breath than usual. Reports minor nausea as well. Denies any pain going into the abdomen or central chest area. MD Complaint: chest pain - Related Data Home Medications Medication Instructions Recorded Confirmed Spironolactone [Aldactone] 25 mg PO HS@1700 08/15/20 05/08/23 Amiodarone [Cordarone] 100 mg PO DAILY@0700 06/20/21 05/08/23 Atorvastatin [Lipitor] 10 mg PO HS@1700 06/20/21 05/08/23 Multivitamins, Thera [Multivitamin 1 tab PO DAILY@0700 09/05/22 05/08/23 (formulary)] Warfarin [Coumadin] 5 mg PO HS@1700 03/09/23 05/08/23 Ibuprofen [Motrin Ib] 200 mg PO Q8H PRN 05/08/23 05/08/23 [place]-3/Dha/Epa/Fish Oil [Fish Oil 1 cap PO DAILY@0700 05/08/23 05/08/23 1,000 mg Softgel] carvediloL [Coreg] 6.25 mg PO BID@0700,1700 05/08/23 05/08/23 lisinopriL [Zestril] 2.5 mg PO DAILY@0700 05/08/23 05/08/23 Allergies Allergy/AdvReac Type Severity Reaction Status Date / Time hydromorphone [From Dilaudid] AdvReac Nausea & Verified 05/08/23 21:58 Vomiting Review of Systems ROS Statement: Those systems with pertinent positive or pertinent negative responses have been documented in the HPI. ROS Other: All systems not noted in ROS Statement are negative. Past Medical History Past Medical History: Chest Pain / Angina, COPD, Hyperlipidemia, Hypertension, Myocardial Infarction ([place]), Pneumonia, Pulmonary Embolus (PE) Additional Past Medical History / Comment(s): cardiomyopathy, PE (6yrs ago), brain aneursym [place] Last Myocardial Infarction Date:: 5 yrs ago History of Any Multi-Drug Resistant Organisms: None Reported Past Surgical History: AICD, Cholecystectomy, Heart Catheterization Additional Past Surgical History / Comment(s): AICD defibrillator placed 6 years ago Past Anesthesia/Blood Transfusion Reactions: No Reported Reaction Type of Cardiac Device: AICD Device Placement Date:: 2015 Past Psychological History: Anxiety, Depression Smoking Status: Former smoker Past Alcohol Use History: None Reported Past Drug Use History: None Reported - Past Family History Mother Family Medical History: Diabetes Mellitus, Hypertension Father Family Medical History: No Reported History General Exam Limitations: no limitations General appearance: alert, in no apparent distress Head exam: Present: atraumatic, normocephalic, normal inspection Respiratory exam: Present: normal lung sounds bilaterally, chest wall tenderness. Absent: respiratory distress, wheezes, rales, rhonchi, stridor Cardiovascular Exam: Present: regular rate, normal rhythm, normal heart sounds. Absent: systolic murmur, diastolic murmur, rubs, gallop, clicks GI/Abdominal exam: Present: soft, normal bowel sounds. Absent: distended, tenderness, guarding, rebound, rigid Back exam: Present: tenderness (Mid back) Neurological exam: Present: alert, oriented X3, CN II-XII intact Psychiatric exam: Present: normal affect, normal mood Skin exam: Present: warm, dry, intact, normal color. Absent: rash Course Vital Signs 05/08/23 05/09/23 05/09/23 20:23 00:00 02:00 Temperature 98.5 F Pulse Rate 94 79 83 Respiratory 18 20 20 Rate Blood Pressure 139/73 124/77 122/77 O2 Sat by Pulse 95 95 94 L Oximetry Chest Pain MDM - MDM This is a 57-year-old female who presents to the emergency department for pain in the neck and back. Was pt. sent in by a medical professional or institution? @ -No Did you speak to anyone other than the patient for history? @ -No Did you review nursing and triage notes? @ -Yes, and I agree, it is accurate with regards to the patient's symptoms. Were old charts reviewed? @ -No Differential Diagnosis? @ -Differential Back Pain: Strain, zoster, cauda equina syndrome, epidural abscess, vertebral osteomyelitis, discitis, fracture, subluxation, disc herniation, DJD, spinal iman nosis, dissection, AAA, pancreatitis, peptic ulcer disease, pyelonephritis, kidney stone, this is not meant to be an all-inclusive list. EKG interpreted by me (3pts min.)? @ -EKG interpreted by me demonstrating the following: Electronic ventricular pacemaker. Ventricular rate 82 beats per minute, IN interval 104 ms, QRS duration 167 ms, QTC 481 ms. X-rays interpreted by me (1pt min.)? @ -Chest x-ray obtained, my interpretation identifies no localized consolidations or infiltrates. CT interpreted by me (1pt min.)? @ -Not obtained U/S interpreted by me (1pt. min.)? @ -Not obtained What testing was considered but not performed? (CT, X-rays, U/S, labs)? Why? @ -None What meds were considered but not given? Why? @ -None Did you discuss the management of the patient with other professionals? @ -No Did you reconcile home meds? @ -Yes Was smoking cessation discussed for >3mins.? @ -No Was critical care preformed (if so, how long)? @ -No Were there social determinants of health that impacted care today? How? (Homelessness, low income, unemployed, alcoholism, drug addiction, transportation, low edu. Level, literacy, decrease access to med. care, alf, rehab)? @ -No Was there de-escalation of care discussed even if they declined? (Discuss DNR or withdrawal of care, Hospice)? @ -No What co-morbidities impacted this encounter? (DM, HTN, Smoking, COPD, CAD, Cancer, CVA, Hep., AIDS, mental health diagnosis, sleep apnea, morbid obesity)? @ -CAD, HLD, HTN, cardiomyopathy Was patient admitted / discharged? @ -Admitted. Lab work obtained and found to be nonactionable. Chest x-ray reveals no acute process. Patient's pain is reproducible and worse with move ment. It was well controlled with Valium, Toradol, and morphine. Valium was used due to the patient requesting something to help calm her down as well, and this acted as both an anxiolytic and muscle relaxant. Norflex was later used to help control residual pain, which she also felt worked well. Given that this is reproducible and improved with the provided medication, this is felt to be more likely musculoskeletal in nature. However, given the patient's substantial cardiac history and because she has not had a cardiac workup since July 2021, I did offer admission for further evaluation and cardiac rule out. Patient initially requested to go home, but then said that she felt unwell and she lives alone and was concerned about something happening. Patient was subsequently admitted to medicine for further evaluation with cardiology consult. Serial troponins ordered. Undiagnosed new problem with uncertain prognosis? @ -None Drug Therapy requiring intensive monitoring for toxicity (Heparin, Nitro, Insulin, Cardizem)? @ -None Were any procedures done? @ -None Diagnosis/symptom? @ -Rib pain, mid back pain, dyspnea Acute, or Chronic, or Acute on Chronic? @ -Acute Uncomplicated (without systemic symptoms) or Complicated (systemic symptoms)? @ -Complicated Side effects of treatment? @ -None Exacerbation, Progression, or Severe Exacerbation] @ -Not applicable Poses a threat to life or bodily function? @ -Yes This case was discussed in detail with the attending ED physician, Dr. Lopez. Presentation, findings, and treatment plan discussed in detail as well. Disposition Clinical Impression: Rib pain, Mid back pain, Dyspnea Disposition: ADMITTED IP TO THIS HOSP
--- NOTE | 2023-05-08 21:27 | XR ---
EXAMINATION TYPE: XR chest 2V DATE OF EXAM: 05/08/2023 9:21 PM CLINICAL INDICATION:Female, 57 years old with history of Chest Pain; COMPARISON: Chest radiographs from 11/26/2022 TECHNIQUE: XR chest 2V Frontal and lateral views of the chest. FINDINGS: Lungs/Pleura: There is no evidence of pleural effusion, focal consolidation, or pneumothorax. Pulmonary vascularity: Unremarkable. Heart/mediastinum: Cardiomediastinal silhouette is enlarged and stable. Three lead cardiac conduction device overlying the left hemithorax with lead tips projecting over the right ventricle, right atriu m and coronary sinus. Musculoskeletal: No acute osseous pathology. IMPRESSION: Low lung volumes with a generalized hazy appearance which could represent atelectasis.
[2023-05-08 21:30] LABS: ALT 30 U/L (4-34); AST 28 U/L (14-36); African American GFR (CKD) 88 (>60 ml/min/1.73 sqM); Albumin 4.3 g/dL (3.5-5.0); Alkaline Phosphatase 87 U/L (38-126); Amylase 41 U/L (30-110); Anion Gap 10 mmol/L; Blood Urea Nitrogen 13 mg/dL (7-17); Calcium 9.4 mg/dL (8.4-10.2); Carbon Dioxide 27 mmol/L (22-30); Chloride 101 mmol/L (98-107); Glucose 91 mg/dL (74-99); Lipase 56 U/L (23-300); Magnesium 1.9 mg/dL (1.6-2.3); Non-African American GFR(CKD) 76 (>60 ml/min/1.73 sqM); Sodium 138 mmol/L (137-145); Total Bilirubin 0.8 mg/dL (0.2-1.3); Total Protein 7.3 g/dL (6.3-8.2)
[2023-05-08 21:41] LABS: Basophils % (A) 0 %; Eosinophils # (A) 0.3 k/uL (0-0.7); Eosinophils % (A) 4 %; HCT 38.8 % (34.0-46.0); HGB 13.5 gm/dL (11.4-16.0); Lymphocytes # (A) 1.6 k/uL (1.0-4.8); Lymphocytes % (A) 22 %; MCH 29.2 pg (25.0-35.0); MCHC 34.7 g/dL (31.0-37.0); MCV 84.2 fL (80.0-100.0); Mean Platelet Volume 9.2; Monocytes # (A) 0.5 k/uL (0-1.0); Monocytes % (A) 6 %; Neutrophils # (A) 4.7 k/uL (1.3-7.7); Neutrophils % (A) 66 %; Platelet Count 167 k/uL (150-450); Poikilocytosis Slight; RBC 4.61 m/uL (3.80-5.40); RDW 15.6 % (11.5-15.5); WBC 7.1 k/uL (3.8-10.6)
[2023-05-08] MEDS ORDERED: ORPHENADRINE 30 MG/ML 2 ML VIAL IVP STA (22:07)
[2023-05-08 22:30] LABS: INR 3.4 (<1.2); Prothrombin Time 32.9 sec (10.0-12.5)
[2023-05-09 00:13] LABS: Amorphous Sediment,Urine Occasional /hpf; Appearance,Urine Cloudy (Clear); Bilirubin,Urine Negative (Negative); Blood,Urine Negative (Negative); Color,Urine Yellow; Glucose,Urine (UA) Negative (Negative); Hyaline Casts,Urine 123 /lpf (0-2); Ketones,Urine Negative (Negative); Leukocyte Esterase,Urine Moderate (Negative); Mucus,Urine Few /hpf; Nitrite,Urine Negative (Negative); PH, Urine 5.5 (5.0-8.0); Protein,Urine 1+ (Negative); RBC,Urine 2 /hpf (0-5); Specific Gravity,Urine 1.031 (1.001-1.035); Squamous Epithelial Cell,Urine 13 /hpf (0-4); Urobilinogen,Urine <2.0 mg/dL (<2.0); WBC,Urine 23 /hpf (0-5)
[2023-05-09] MEDS ORDERED: DEXAMETHASONE SOD PHOSPHATE 10 MG/ML 1 ML VIAL IVP STA (00:50)
[2023-05-09] MEDS ORDERED: ACET/COD 300 MG/30 MG STARTER PACK 6 TAB BTL PO STA (00:51)
[2023-05-09] MEDS ORDERED: MAG HYDROX/AL HYDROX/SIMETH 30 ML, HYOSCYAMINE ELIXIR 10 ML PO STA ×2 (01:24)
[2023-05-09] MEDS ORDERED: FAMOTIDINE 20 MG/2 ML VIAL IV STA (01:24)
[2023-05-09] MEDS ORDERED: IBUPROFEN 200 MG TAB PO PRN (01:33)
[2023-05-09] MEDS ORDERED: ACETAMINOPHEN TAB 325 MG TAB PO PRN (01:34)
[2023-05-09] MEDS ORDERED: NALOXONE 0.4 MG/ML 1 ML VIAL IV PRN (01:34)
[2023-05-09] MEDS: ONDANSETRON 4 MG/2 ML VIAL IVP PRN (03:25)
[2023-05-09] MEDS: MORPHINE SULFATE 4 MG/ML SYRINGE IV PRN ×2 (04:20→18:54)
[2023-05-09 06:35] LABS: INR 3.1 (<1.2); Prothrombin Time 30.9 sec (10.0-12.5)
[2023-05-09] MEDS ORDERED: NON FORMULARY DRUG (Omega-3/Dha/Epa/Fish Oil [Fish Oil 1,000 Mg Softgel] 1 EACH Capsule) PO SCH (07:00)
[2023-05-09] MEDS: AMIODARONE 200 MG TAB PO SCH (09:24)
[2023-05-09] MEDS: carvediloL 6.25 MG TAB PO SCH ×2 (09:24→21:09)
[2023-05-09] MEDS: HYDROcodone/APAP 5-325MG 1 EACH TAB PO PRN ×3 (09:25→21:10)
[2023-05-09] MEDS: MULTIVITAMINS, THERA 1 EACH TAB PO SCH (09:25)
[2023-05-09] MEDS: PANTOPRAZOLE 40 MG/10 ML VIAL IV SCH (09:25)
--- NOTE | 2023-05-09 15:26 | P.CRDCN ---
History of Present Illness Consult date: 05/09/23 History of present illness: HISTORY OF PRESENTING ILLNESS 57-year-old was known to Dr. reyes. She's a past medical history of nonischemic adenopathy status post AICD, prior PE on warfarin therapy. She has not seen Dr. reyes in recent past because of lack of insurance coverage. She had a nuclear Lexiscan stress 05/07/2022 which was normal without any evidence of ischemia or infarct. She had a severe RV dilatation on her echocardiogram and an EF of 50% from 2021 At this time she present to the hospital because of tightness in her chest. She describes that this tightness was getting worse with taking deep breaths. This has been a constant thing for her for last 3-4 days. This does not get better with nitroglycerin. This does not get worse with activity. Her ECG shows normal V paced rhythm Cardiac troponins 3 were negative, blood pressure 100/64, pulse 56 REVIEW OF SYSTEMS 14 point review of system is negative except what is mentioned above in HPI. PHYSICAL EXAMINATION Vital signs reviewed. Head: Normocephalic. Eyes: Sclerae nonicteric. Neck: Brisk carotid upstroke, no jugular venous distention. Lungs: Clear to auscultation. Heart: Regular rate and rhythm, S1-S2, no S3, no murmur or rub. Abdomen: Soft nontender, positive bowel sounds no organomegaly. Extremities: No edema, intact distal pulses. Neuro: Alert, oritented, no focal deficits ASSESSMENT Atypical chest pain, less likely cardiac. Rule out of acute coronary syndrome Prior history of nonischemic cardiomyopathy with recovered EF. Last echo from 2021 showed an EF of 50% eccentric Status post AICD, currently in Vpaced rhythm Prior history of severe RV dilatation History of DVT on Coumadin. INR 3.4 on admission PLAN It is unlikely that it is coronary artery disease that is causing patient's chest pain. It is unlikely that patient might have pulmonary embolism with therapeutic INR on Coumadin. He does not have any signs of congestive heart failure due to fluid overload We will obtain echocardiogram to follow-up right ventricular systolic function and pressures She might benefit from an outpatient right heart catheterization to evaluate if she has any pulmonary hypertension Past Medical History Past Medical History: Chest Pain / Angina, COPD, Hyperlipidemia, Hypertension, Myocardial Infarction ([place]), Pneumonia, Pulmonary Embolus ([place]) Additional Past Medical History / Comment(s): cardiomyopathy, PE (6yrs ago), brain aneursym [place] Last Myocardial Infarction Date:: 5 yrs ago History of Any Multi-Drug Resistant Organisms: None Reported Past Surgical History: AICD, Cholecystectomy, Heart Catheterization Additional Past Surgical History / Comment(s): AICD defibrillator placed 6 years ago, Right perforated eardrum Past Anesthesia/Blood Transfusion Reactions: No Reported Reaction Type of Cardiac Device: AICD Device Placement Date:: 2015 Past Psychological History: Anxiety, Depression Smoking Status: Former smoker Past Alcohol Use History: None Reported Past Drug Use History: None Reported - Past Family History Mother Family Medical History: Diabetes Mellitus, Hypertension Father Family Medical History: No Reported History Medications and Allergies Home Medications Medication Instructions Recorded Confirmed Type RX: Spironolactone [Aldactone] 25 mg PO HS@1700 08/15/20 05/08/23 History RX: Amiodarone [Cordarone] 100 mg PO DAILY@0700 06/20/21 05/08/23 History RX: Atorvastatin [Lipitor] 10 mg PO HS@1700 06/20/21 05/08/23 History RX: Multivitamins, Thera 1 tab PO DAILY@0700 09/05/22 05/08/23 History [Multivitamin (formulary)] Warfarin [Coumadin] 5 mg PO HS@1700 03/09/23 05/08/23 History Ibuprofen [Motrin Ib] 200 mg PO Q8H PRN 05/08/23 05/08/23 History [place]-3/Dha/Epa/Fish Oil [Fish Oil 1 cap PO DAILY@0700 05/08/23 05/08/23 History 1,000 mg Softgel] RX: carvediloL [Coreg] 6.25 mg PO BID@0700,1700 05/08/23 05/08/23 History RX: lisinopriL [Zestril] 2.5 mg PO DAILY@0700 05/08/23 05/08/23 History Allergies Allergy/AdvReac Type Severity Reaction Status Date / Time hydromorphone [From Dilaudid] AdvReac Nausea & Verified 05/08/23 21:58 Vomiting Physical Exam Vitals: Vital Signs Temp Pulse Pulse Resp BP BP Pulse Ox 05/09/23 13:49 98.0 F 85 18 121/77 93 L 05/09/23 08:18 98 F 56 L 18 100/64 96 05/09/23 03:58 97.9 F 86 17 125/73 94 L 05/09/23 02:00 83 20 122/77 94 L 05/09/23 00:00 79 20 124/77 95 05/08/23 20:23 98.5 F 94 18 139/73 95 Intake and Output 05/09/23 05/09/23 05/09/23 06:59 14:59 22:59 Intake Total 120 Balance 120 Intake: Oral 120 Other: # Voids 2 2 Weight 113.398 kg Results 05/08/23 20:52 05/08/23 20:52 Cardiac Enzymes 05/08/23 05/08/23 05/09/23 Range/Units 20:52 20:52 04:42 AST 28 (14-36) U/L Troponin I <0.012 <0.012 (0.000-0.034) ng/mL 05/09/23 Range/Units 05:42 AST (14-36) U/L Troponin I <0.012 (0.000-0.034) ng/mL Coagulation 05/08/23 05/09/23 Range/Units 20:52 05:42 PT 32.9 H 30.9 H (10.0-12.5) sec APTT 35.0 H (22.0-30.0) sec CBC 05/08/23 Range/Units 20:52 WBC 7.1 (3.8-10.6) k/uL RBC 4.61 (3.80-5.40) m/uL Hgb 13.5 (11.4-16.0) gm/dL Hct 38.8 (34.0-46.0) % Plt Count 167 (150-450) k/uL Comprehensive Metabolic Panel 05/08/23 Range/Units 20:52 Sodium 138 (137-145) mmol/L Potassium 4.0 (3.5-5.1) mmol/L Chloride 101 (98-107) mmol/L Carbon Dioxide 27 (22-30) mmol/L BUN 13 (7-17) mg/dL Creatinine 0.85 (0.52-1.04) mg/dL Glucose 91 (74-99) mg/dL Calcium 9.4 (8.4-10.2) mg/dL AST 28 (14-36) U/L ALT 30 (4-34) U/L Alkaline Phosphatase 87 (38-126) U/L Total Protein 7.3 (6.3-8.2) g/dL Albumin 4.3 (3.5-5.0) g/dL Current Medications Generic Name Dose Route Start Last Admin Trade Name Freq PRN Reason Stop Dose Admin Acetaminophen 650 mg 05/09/23 01:34 05/09/23 09:32 Acetaminophen Tab 325 Mg Tab PO 650 mg Q6HR PRN Administration Mild Pain or Fever > 100.5 Hydrocodone Bitart/Acetaminophen 1 each 05/09/23 01:34 05/09/23 15:03 Hydrocodone/Apap 5-325mg 1 Each Tab PO 1 each Q4HR PRN Administration Moderate Pain (Scale 4 to 6) Amiodarone HCl 100 mg 05/09/23 09:00 05/09/23 09:24 Amiodarone 200 Mg Tab PO 100 mg DAILY DUNCAN Administration Atorvastatin Calcium 10 mg 05/09/23 21:00 Atorvastatin 10 Mg Tab PO HS DUNCAN Carvedilol 6.25 mg 05/09/23 09:00 05/09/23 09:24 Carvedilol 6.25 Mg Tab PO 6.25 mg BID DUNCAN Administration Ibuprofen 200 mg 05/09/23 01:33 Ibuprofen 200 Mg Tab PO Q8H PRN Pain Lisinopril 2.5 mg 05/09/23 09:00 05/09/23 09:24 Lisinopril 2.5 Mg Tab PO 2.5 mg DAILY DUNCAN Administration Miscellaneous Information 0 each 05/09/23 01:47 Warfarin Per Pharmacy MISCELLANE DIRECTED PRN PER PROTOCOL Morphine Sulfate 4 mg 05/09/23 01:34 05/09/23 04:20 Morphine Sulfate 4 Mg/Ml Syringe IV 4 mg Q4HR PRN Administration Severe Pain (Scale 7 to 10) Multivitamins 1 each 05/09/23 09:00 05/09/23 09:25 Multivitamins, Thera 1 Each Tab PO 1 each DAILY DUNCAN Administration Naloxone HCl 0.2 mg 05/09/23 01:34 Naloxone 0.4 Mg/Ml 1 Ml Vial IV Q2M PRN Opioid Reversal Ondansetron HCl 4 mg 05/09/23 01:34 05/09/23 03:25 Ondansetron 4 Mg/2 Ml Vial IVP 4 mg Q8HR PRN Administration Nausea And Vomiting Pantoprazole Sodium 40 mg 05/09/23 09:00 05/09/23 09:25 Pantoprazole 40 Mg/10 Ml Vial IV 40 mg DAILY DUNCAN Administration Spironolactone 25 mg 05/09/23 21:00 Spironolactone 25 Mg Tab PO HS DUNCAN Warfarin Sodium 2.5 mg 05/09/23 18:00 Warfarin 2.5 Mg Tab PO 05/09/23 18:01 ONCE@1800 ONE Intake and Output 05/09/23 05/09/23 05/09/23 06:59 14:59 22:59 Intake Total 120 Balance 120 Intake: Oral 120 Other: # Voids 2 2 Weight 113.398 kg 05/08/23 20:52 05/08/23 20:52
[2023-05-09] MEDS ORDERED: WARFARIN 5 MG TAB PO SCH (17:00)
[2023-05-09] MEDS ORDERED: WARFARIN 2.5 MG TAB PO ONE (18:00)
[2023-05-09] MEDS ORDERED: ATORVASTATIN 10 MG TAB PO SCH (21:00)
[2023-05-09] MEDS ORDERED: SPIRONOLACTONE 25 MG TAB PO SCH (21:00)
--- NOTE | 2023-05-10 01:44 | PN ---
PROGRESS NOTE DATE OF SERVICE: 05/09/2023 CHIEF COMPLAINT: Bilateral chest pain. HISTORY OF PRESENT ILLNESS: This is another of many admissions for this 57-year-old female, who has had numerous problems in the past including intracranial bleed, coronary artery disease, cardiac arrhythmia, pulmonary emboli. IMPRESSION: She presented to the emergency room, complaining of bilateral chest wall pain. She had no diaphoresis or shortness of breath. Pain was not typical for cardiac disease. Enzymes, chest and EKG were all normal. REVIEW OF SYSTEMS: She has had no syncope, diaphoresis, radiation of the pain, palpitations, orthopnea, PND, etc. PAST MEDICAL HISTORY: Otherwise unremarkable. FAMILY HISTORY: Otherwise unremarkable. PERSONAL HISTORY: Otherwise unremarkable. SOCIAL HISTORY: Otherwise unremarkable. As already mentioned, she does have a pacemaker/ICD, which has not gone off. Urine looks like she has a UTI, but she has no symptoms. Remainder of her history is unremarkable. She does not smoke. PHYSICAL EXAMINATION: VITAL SIGNS: Normal. HEAD, EARS, EYES, NOSE, MOUTH AND THROAT: Normal. CHEST: Clear. CARDIAC: Demonstrates atrial fibrillation. ABDOMEN: Soft, nontender. EXTREMITIES: Normal. NEUROLOGIC: Intact. IMPRESSION: 1. She is admitted to the hospital. History of bilateral chest wall pain, etiology unknown. 2. History of coronary artery disease. 3. History of cardiac arrhythmia, status post pacemaker/ICD. 4. History of pulmonary emboli. 5. History of intracranial bleed. PLAN: 1. Bed rest. 2. IV fluids. 3. Serial EKGs and enzymes. 4. Monitor vital signs and neurologic status. 5. Consult Cardiology. MMODL / IJN: [id number] /
[2023-05-10] MEDS: ONDANSETRON 4 MG/2 ML VIAL IVP PRN (02:13)
[2023-05-10] MEDS: HYDROcodone/APAP 5-325MG 1 EACH TAB PO PRN (02:13)
[2023-05-10 06:38] LABS: INR 2.2 (<1.2); Prothrombin Time 21.7 sec (10.0-12.5)
[2023-05-10 08:09] VITALS: BP 107/72; PULSE 96; RESP 12; TEMP 98
[2023-05-10] MEDS: AMIODARONE 200 MG TAB PO SCH (09:42)
[2023-05-10] MEDS: PANTOPRAZOLE 40 MG/10 ML VIAL IV SCH (09:42)
[2023-05-10] MEDS: carvediloL 6.25 MG TAB PO SCH (09:42)
[2023-05-10] MEDS: MULTIVITAMINS, THERA 1 EACH TAB PO SCH (09:42)
[2023-05-10] MEDS: MORPHINE SULFATE 4 MG/ML SYRINGE IV PRN (09:47)
[2023-05-10] MEDS ORDERED: ALPRAZolam 0.25 MG TAB PO PRN (10:07)
--- NOTE | 2023-05-10 10:12 | P.PN ---
Subjective HISTORY OF PRESENT ILLNESS: 57-year-old was known to Dr. reyes. She's a past medical history of nonischemic adenopathy status post AICD, prior PE on warfarin therapy. She has not seen Dr. reyes in recent past because of lack of insurance coverage. She had a nuclear Lexiscan stress 05/07/2022 which was normal without any evidence of ischemia or infarct. She had a severe RV dilatation on her echocardiogram and an EF of 50% from 2021 At this time she present to the hospital because of tightness in her chest. She describes that this tightness was getting worse with taking deep breaths. This has been a constant thing for her for last 3-4 days. This does not get better with nitroglycerin. This does not get worse with activity. Her ECG shows normal V paced rhythm Cardiac troponins 3 were negative, blood pressure 100/64, pulse 56 05/10/2023 Patient examined this morning at the bedside. Patient currently denies any chest pain or pressure. She denies any shortness of breath. Vital signs are stable. PHYSICAL EXAM: VITAL SIGNS: Reviewed. GENERAL: Well-developed in no acute distress. NECK: Supple. No JVD or thyromegaly LUNGS: Respirations even and unlabored. Lungs essentially clear to auscultation bilaterally. HEART: Regular rate and rhythm. S1 and S2 heard. EXTREMITIES: Normal range of motion. No clubbing or cyanosis. Peripheral pulses intact. No lower extremity edema ASSESSMENT: Chest pain, atypical, troponin negative x 3 History of nonischemic cardiomyopathy with recovered EF History of AICD implantation History of severe RV dilatation History of DVT, on Coumadin PLAN: Continue current cardiac medications Continue anticoagulation with Coumadin. Monitor INR. 2-D echo has been ordered. Await results. Consider outpatient right heart cath to evaluate for pulmonary hypertension Further recommendations pending patient's course If 2-D echo does not reveal any significant abnormalities, patient may be discharged home today from a cardiac standpoint and follow up on an outpatient basis Nurse practitioner note has been reviewed by physician. Signing provider agrees with the documented findings, assessment, and plan of care. Objective - Vital Signs Vital signs: Vital Signs Temp 98.0 F 05/10/23 07:00 Pulse 96 05/10/23 07:00 Resp 12 05/10/23 07:00 BP 107/72 05/10/23 07:00 Pulse Ox 93 L 05/10/23 07:00 FiO2 Intake & Output 05/09/23 05/10/23 05/10/23 18:59 06:59 18:59 Intake Total 360 Balance 360 Intake: Oral 360 Other: # Voids 1 2 - Labs CBC & Chem 7: 05/08/23 20:52 05/08/23 20:52 Labs: Abnormal Lab Results - Last 24 Hours (Table) 05/10/23 Range/Units 05:58 PT 21.7 H (10.0-12.5) sec INR 2.2 H (<1.2)
--- NOTE | 2023-05-10 12:59 | CA ---
Transthoracic Echo Report Name: Sneha Beth Age: 57 Gender: F : 1965 Exam Date: 05/10/2023 08:48 Exam Location: [place] [facility] Ht (in): 68 Wt (lb): 250 Ordering Physician: Shreyas Bae MD ([id number]) Attending/Referring Phys: Bricklayer Priscila Baker [facility] Procedure CPT: Indications: Chest Pain Cardiac Hx: Technical Quality: Very technically difficult study Contrast 1: [place] Total Dose (mL): 5 Contrast 2: Total Dose (mL): MEASUREMENTS (Male / Female) Normal Values 2D ECHO LV Diastolic Volume MOD BP 86.4 cm??? 67 - 155 / 56 - 104 cm??? LV Systolic Volume MOD BP 54.7 cm??? 22 - 58 / 19 - 49 cm??? LV Ejection Fraction MOD BP 36.7 % >= 55 % LV Cardiac Index MOD BP 1185.6 cm???/min???m??? LV Diastolic Volume MOD 4C 109.2 cm??? LV Systolic Volume MOD 4C 58.8 cm??? LV Ejection Fraction MOD 4C 46.2 % LV Cardiac Index MOD 4C 1884.0 cm???/min???m??? LV Diastolic Length 4C 8.5 cm LV Systolic Length 4C 7.3 cm LV Diastolic Volume MOD 2C 63.3 cm??? LV Systolic Volume MOD 2C 49.9 cm??? LV Ejection Fraction MOD 2C 21.1 % LV Cardiac Index MOD 2C 499.7 cm???/min???m??? LV Diastolic Length 2C 7.7 cm LV Systolic Length 2C 7.6 cm DOPPLER AV Peak Velocity 119.8 cm/s AV Peak Gradient 5.7 mmHg AV Mean Velocity 86.1 cm/s AV Mean Gradient 3.3 mmHg AV Velocity Time Integral 22.3 cm LVOT Peak Velocity 105.3 cm/s LVOT Peak Gradient 4.4 mmHg LVOT Velocity Time Integral 20.4 cm Mitral E Point Velocity 77.0 cm/s Mitral A Point Velocity 97.5 cm/s Mitral E to A Ratio 0.8 MV Deceleration Time 219.6 ms LV E' Lateral Velocity 7.7 cm/s Mitral E to LV E' Lateral Ratio 10.0 LV E' Septal Velocity 5.8 cm/s Mitral E to LV E' Septal Ratio 13.3 Right Atrial Pressure 8.0 mmHg FINDINGS Left Ventricle Mildly increased left ventricular systolic volume. Mildly decreased left ventricular ejection fraction. [place] hypokinetic. Left ventricular ejection fraction is estimated at 40-45%. Right Ventricle Catheter/pacemaker wire in the right ventricular cavity. Right ventricle not well visualized. Unable to estimate the right ventricular systolic pressure. Right Atrium Right atrium not well visualized. Catheter/pacemaker wire in the right atrial cavity. Left Atrium Normal left atrial size. Mitral Valve Mitral valve thickened. Mild mitral regurgitation. Aortic Valve Aortic valve not well visualized. No aortic regurgitation. Tricuspid Valve Tricuspid valve not well visualized. Pulmonic Valve Pulmonic valve not well visualized. Pericardium Minimal pericardial effusion (normal variant). Echo free space anterior to the right ventricle likely represents a fat pad. Aorta Aortic root and proximal ascending aorta not well visualized. CONCLUSIONS Technically difficult study Left ventricular ejection fraction is estimated at 40-45%. [place] hypokinetic. Pacemaker wire in the right ventricular cavity. Epicardial fat No prior echo to compare with within database Previewed by: Dr Shreyas Bae (Electronically Signed) Final Date: 10 May 2023 12:58
--- NOTE | 2023-05-10 13:13 | P.PN ---
Subjective Progress Note Date: 05/10/23 I just reviewed the patient's echocardiogram and it appears that when compared to older echo from 2021 her EF is mildly reduced by 5%. There is a suspicion of possible apical hypokinesia which could be pacemaker-induced cardiomyopathy versus ischemic heart disease. She should be evaluated further with an ischemic evaluation either outpatient. By the time I reported the echocardiogram at 12:50 PM, patient was ordered discharged by the primary care physician. We will attempt to follow up with the patient on outpatient basis. Objective - Vital Signs Vital signs: Vital Signs Temp 98.0 F 05/10/23 07:00 Pulse 96 05/10/23 07:00 Resp 12 05/10/23 07:00 BP 107/72 05/10/23 07:00 Pulse Ox 93 L 05/10/23 07:00 FiO2 Intake & Output 05/09/23 05/10/23 05/10/23 18:59 06:59 18:59 Intake Total 360 240 Balance 360 240 Intake: Oral 360 240 Other: # Voids 1 2 - Labs CBC & Chem 7: 05/08/23 20:52 05/08/23 20:52 Labs: Abnormal Lab Results - Last 24 Hours (Table) 05/10/23 Range/Units 05:58 PT 21.7 H (10.0-12.5) sec INR 2.2 H (<1.2)
--- NOTE | 2023-05-13 06:41 | DS ---
DISCHARGE SUMMARY CHIEF COMPLAINT: Chest pain. HISTORY OF PRESENT ILLNESS AND PHYSICAL EXAM: Details of this lady's history and physical can be found in the initial workup. LABORATORY STUDIES: While she is in a hospital, she had laboratory studies, details of which can be found in the laboratory section of her chart and which were all normal. She was not seen by Cardiology. Cardiac enzymes were normal and her symptoms were gone on the morning of discharge. FINAL DIAGNOSES: 1. Bilateral chest wall pain. 2. History of coronary artery disease. 3. Atrial fibrillation. 4. History of intracranial bleed. 5. History of congestive heart failure. OPERATIONS: None. CONSULTATION: None. She is improved. MMODL / IJN: [id number] /
== END 2023-05-10 10:55 | disposition home or self-care (01) ==
LOC: EC 20:18 → 6NMEDSUR 05-09 01:55
PROVIDERS: ADMIT Family Medicine; ATTEND Family Medicine
DX: R07.89 Other chest pain (principal); M54.9 Dorsalgia, unspecified; R06.00 Dyspnea, unspecified; I42.8 Other cardiomyopathies; I25.10 Atherosclerotic heart disease of native coronary artery without angina pectoris; I48.91 Unspecified atrial fibrillation; J44.9 Chronic obstructive pulmonary disease, unspecified; E78.5 Hyperlipidemia, unspecified; F32.A Depression, unspecified; F41.9 Anxiety disorder, unspecified; I11.0 Hypertensive heart disease with heart failure; I50.9 Heart failure, unspecified; I25.2 Old myocardial infarction; Z86.711 Personal history of pulmonary embolism; Z86.718 Personal history of other venous thrombosis and embolism; Z86.79 Personal history of other diseases of the circulatory system; Z87.891 Personal history of nicotine dependence; Z95.810 Presence of automatic (implantable) cardiac defibrillator; Z79.01 Long term (current) use of anticoagulants; Z79.899 Other long term (current) drug therapy; Z88.5 Allergy status to narcotic agent
CPT/HCPCS: 96376 ×2; 96375 ×3; 96374; 99285; 36415; 93005; 80053; 82150; 83690; 83735; 84484 ×2; 85025; 85610 ×3; 85730; 81001; 71046; G0378 ×2; C8929; J2270 ×3; J2360; J3360; J2405 ×2; J3490; J1885; C9113 ×2; Q9950; 93306

== ENCOUNTER 2023-07-02 13:07 | Emergency (ER) | payer MEDICARE ==
[2023-07-02 13:34] VITALS: TEMP 98.4
--- NOTE | 2023-07-02 14:29 | XR ---
EXAMINATION TYPE: XR chest 2V DATE OF EXAM: 07/02/2023 2:21 PM CLINICAL INDICATION:Female, 57 years old with history of sob; COMPARISON: Chest radiographs from 05/08/2023 TECHNIQUE: XR chest 2V Frontal and lateral views of the chest. FINDINGS: Lungs/Pleura: There is no evidence of pleural effusion, focal consolidation, or pneumothorax. Pulmonary vascularity: Unremarkable. Heart/mediastinum: Cardiomediastinal silhouette is prominent in size. Three lead cardiac conduction d evice overlying the left hemithorax with lead tips projecting over the right ventricle, right atrium and coronary sinus. Musculoskeletal: No acute osseous pathology. IMPRESSION: No acute cardiopulmonary disease/process.
--- NOTE | 2023-07-02 14:56 | ED ---
URI HPI - General Chief Complaint: Upper Respiratory Infection Stated Complaint: Back Pain,Sob Time Seen by Provider: 07/02/23 13:38 Source: patient, RN notes reviewed Mode of arrival: ambulatory Limitations: no limitations - History of Present Illness Initial Comments: 57-year-old female presents emergency Department chief complaint cough congestion states been sick for last 4 days. She has increased nasal congestion, postnasal drainage, slight productive cough she does have a history of COPD states ribs are when she coughs. She denies any deep anterior lateral back pain or chest pain. Patient states that she's had fevers chills and bodyaches. - Related Data Home Medications Medication Instructions Recorded Confirmed Spironolactone [Aldactone] 25 mg PO HS@1700 08/15/20 05/08/23 Amiodarone [Cordarone] 100 mg PO DAILY@0700 06/20/21 05/08/23 Atorvastatin [Lipitor] 10 mg PO HS@1700 06/20/21 05/08/23 Multivitamins, Thera [Multivitamin 1 tab PO DAILY@0700 09/05/22 05/08/23 (formulary)] Warfarin [Coumadin] 5 mg PO HS@1700 03/09/23 05/08/23 Ibuprofen [Motrin Ib] 200 mg PO Q8H PRN 05/08/23 05/08/23 [place]-3/Dha/Epa/Fish Oil [Fish Oil 1 cap PO DAILY@0700 05/08/23 05/08/23 1,000 mg Softgel] carvediloL [Coreg] 6.25 mg PO BID@0700,1700 05/08/23 05/08/23 lisinopriL [Zestril] 2.5 mg PO DAILY@0700 05/08/23 05/08/23 Previous Rx's Medication Instructions Recorded ALPRAZolam [Xanax] 0.25 mg PO TID PRN #30 tab 05/10/23 predniSONE 50 mg PO DAILY #5 tab 07/02/23 Allergies Allergy/AdvReac Type Severity Reaction Status Date / Time hydromorphone [From Dilaudid] AdvReac Nausea & Verified 07/02/23 13:30 Vomiting Review of Systems ROS Statement: Those systems with pertinent positive or pertinent negative responses have been documented in the HPI. ROS Other: All systems not noted in ROS Statement are negative. Past Medical History Past Medical History: Chest Pain / Angina, COPD, Hyperlipidemia, Hypertension, Myocardial Infarction ([place]), Pneumonia, Pulmonary Embolus (PE) Additional Past Medical History / Comment(s): cardiomyopathy, PE (6yrs ago), brain aneursym [place] Last Myocardial Infarction Date:: 5 yrs ago History of Any Multi-Drug Resistant Organisms: None Reported Past Surgical History: AICD, Cholecystectomy, Heart Catheterization Additional Past Surgical History / Comment(s): AICD defibrillator placed 6 years ago, Right perforated eardrum Past Anesthesia/Blood Transfusion Reactions: No Reported Reaction Type of Cardiac Device: AICD Device Placement Date:: 2015 Past Psychological History: Anxiety, Depression Smoking Status: Former smoker Past Alcohol Use History: None Reported Past Drug Use History: None Reported - Past Family History Mother Family Medical History: Diabetes Mellitus, Hypertension Father Family Medical History: No Reported History General Exam Limitations: no limitations General appearance: alert, in no apparent distress Head exam: Present: atraumatic, normocephalic, normal inspection Eye exam: Present: normal appearance, PERRL, EOMI. Absent: scleral icterus, conjunctival injection, periorbital swelling ENT exam: Present: normal exam, mucous membranes moist Neck exam: Present: normal inspection, full ROM. Absent: tenderness, meningismus, lymphadenopathy Respiratory exam: Present: normal lung sounds bilaterally, chest wall tenderness. Absent: respiratory distress, wheezes, rales, rhonchi, stridor Cardiovascular Exam: Present: regular rate, normal rhythm, normal heart sounds. Absent: systolic murmur, diastolic murmur, rubs, gallop, clicks GI/Abdominal exam: Present: soft, normal bowel sounds. Absent: distended, tenderness, guarding, rebound, rigid Course Vital Signs 07/02/23 13:26 Temperature 98.4 F Pulse Rate 89 Respiratory 18 Rate Blood Pressure 140/85 O2 Sat by Pulse 96 Oximetry Medical Decision Making - Medical Decision Making Was pt. sent in by a medical professional or institution (, PA, BEARING RING ASSEMBLER, urgent care, hospital, or snf...) When possible be specific @ -No Did you speak to anyone other than the patient for history (EMS, parent, family, police, friend...)? What history was obtained from this source @ -No Did you review nursing and triage notes (agree or disagree)? Why? @ -I reviewed and agree with nursing and triage notes Were old charts reviewed (outside hosp., previous admission, EMS record, old EKG, old radiological studies, urgent care reports/EKG's, snf records)? Report findings @ -No old charts were reviewed Differential Diagnosis (chest pain, altered mental status, abdominal pain women, abdominal pain men, vaginal bleeding, weakness, fever, dyspnea, syncope, headache, dizziness, GI bleed, back pain, seizure, CVA, palpatations, mental health, musculoskeletal)? @ -COVID 19, RSV, influenza, pneumonia, acute bronchitis, URI, this list is not all inclusiveble EKG interpreted by me (3pts min.). @ -None X-rays interpreted by me (1pt min.). @ -Chest x-ray shows evidence COPD changes CT interpreted by me (1pt min.). @ -None done U/S interpreted by me (1pt. min.). @ -None done What testing was considered but not performed or refused? (CT, X-rays, U/S, labs)? Why? @ -None What meds were considered but not given or refused? Why? @ -None Did you discuss the management of the patient with other professionals (professionals i.e. , PA, BEARING RING ASSEMBLER, lab, RT, psych nurse, social work manager, validation consultant, teacher, lead security officer, director of casework department)? Give summary @ -No Was smoking cessation discussed for >3mins.? @ -No Was critical care preformed (if so, how long)? @ -No Were there social determinants of health that impacted care today? How? (Homelessness, low income, unemployed, alcoholism, drug addiction, transportation, low edu. Level, literacy, decrease access to med. care, custodial, rehab)? @ -No Was there de-escalation of care discussed even if they declined (Discuss DNR or withdrawal of care, Hospice)? DNR status @ -No What co-morbidities impacted this encounter? (DM, HTN, Smoking, COPD, CAD, Cancer, CVA, ARF, Chemo, Hep., AIDS, mental health diagnosis, sleep apnea, morbid obesity)? @ -None Was patient admitted / discharged? Hospital course, mention meds given and route, prescriptions, significant lab abnormalities, going to OR and other pertinent info. @ -Discharge patient is positive for COVID-19 patient as well as still be discharged so admission return parameters discussed. Undiagnosed new problem with uncertain prognosis? @ -No Drug Therapy requiring intensive monitoring for toxicity (Heparin, Nitro, Insulin, Cardizem)? @ -No Were any procedures done? @ -No Diagnosis/symptom? @ -COVID-19 Acute, or Chronic, or Acute on Chronic? @ -Acute Uncomplicated (without systemic symptoms) or Complicated (systemic symptoms)? @ -Uncomplicated Side effects of treatment? @ -No Exacerbation, Progression, or Severe Exacerbation? @ -No Poses a threat to life or bodily function? How? (Chest pain, [place], [place], pneumonia, PE, COPD, DKA, ARF, appy, cholecystitis, CVA, Diverticulitis, Homicidal, Suicidal, threat to staff... and all critical care pts) @ -No - Lab Data Lab Results 07/02/23 Range/Units 13:44 Influenza Type A (PCR) Not Detected (Not Detectd) Influenza Type B (PCR) Not Detected (Not Detectd) RSV (PCR) Not Detected (Not Detectd) SARS-CoV-2 (PCR) Detected A (Not Detectd) Disposition Clinical Impression: COVID-19 Disposition: HOME SELF-CARE Condition: Stable Instructions (If sedation given, give patient instructions): COVID-19 (Coronavirus Disease 2019) (ED) Additional Instructions: Please return to the Emergency Department if symptoms worsen or any other concerns. Prescriptions: predniSONE 50 mg PO DAILY #5 tab Is patient prescribed a controlled substance at d/c from ED?: No Referrals: Daniel Mosqueda MD [Primary Care Provider] - 1-2 days Time of Disposition: 15:28
[2023-07-02 16:26] VITALS: BP 155/94; PULSE 71; RESP 20
== END 2023-07-02 16:10 | disposition home or self-care (01) ==
LOC: EC 13:07
DX: U07.1 COVID-19 (principal); I10 Essential (primary) hypertension; J44.9 Chronic obstructive pulmonary disease, unspecified; I25.2 Old myocardial infarction; E78.5 Hyperlipidemia, unspecified; Z79.01 Long term (current) use of anticoagulants; Z79.899 Other long term (current) drug therapy; Z88.5 Allergy status to narcotic agent; Z86.711 Personal history of pulmonary embolism; Z87.891 Personal history of nicotine dependence; Z90.49 Acquired absence of other specified parts of digestive tract
CPT/HCPCS: 71046; 87636; 93005; 99285

== ENCOUNTER 2023-08-22 13:10 | Observation (INO) | payer MEDICARE ==
[2023-08-22 14:06] LABS: Basophils % (A) 1 %; Eosinophils # (A) 0.2 k/uL (0-0.7); Eosinophils % (A) 4 %; HCT 40.9 % (34.0-46.0); Lymphocytes # (A) 1.6 k/uL (1.0-4.8); Lymphocytes % (A) 25 %; MCHC 34.1 g/dL (31.0-37.0); MCV 85.1 fL (80.0-100.0); Mean Platelet Volume 9.8; Monocytes # (A) 0.4 k/uL (0-1.0); Monocytes % (A) 6 %; Neutrophils # (A) 4.2 k/uL (1.3-7.7); Neutrophils % (A) 64 %; Platelet Count 152 k/uL (150-450); Poikilocytosis Slight; RDW 15.4 % (11.5-15.5); WBC 6.5 k/uL (3.8-10.6)
[2023-08-22 14:13] LABS: Partial Thromboplastin Time 28.3 sec (22.0-30.0)
[2023-08-22 14:34] LABS: ALT 32 U/L (4-34); AST 46 U/L (14-36); African American GFR (CKD) >90 (>60 ml/min/1.73 sqM); Albumin 4.6 g/dL (3.5-5.0); Alkaline Phosphatase 106 U/L (38-126); Anion Gap 10 mmol/L; Blood Urea Nitrogen 11 mg/dL (7-17); Calcium 9.6 mg/dL (8.4-10.2); Carbon Dioxide 21 mmol/L (22-30); Chloride 110 mmol/L (98-107); Glucose 98 mg/dL (74-99); Magnesium 1.9 mg/dL (1.6-2.3); Non-African American GFR(CKD) 88 (>60 ml/min/1.73 sqM); Potassium 4.4 mmol/L (3.5-5.1); Sodium 141 mmol/L (137-145); Total Bilirubin 0.6 mg/dL (0.2-1.3); Total Protein 7.4 g/dL (6.3-8.2)
--- NOTE | 2023-08-22 14:55 | XR ---
EXAMINATION TYPE: XR chest 2V DATE OF EXAM: 08/22/2023 COMPARISON: 07/02/2023 HISTORY: Chest pain TECHNIQUE: Frontal and lateral views of the chest are obtained. FINDINGS: There is no focal air space opacity, pleural effusion, or pneumothorax seen. The cardiac silhouette size is within normal limits. No change in the cardiac pacemaker and defibrillator. The o sseous structures are intact. IMPRESSION: No acute cardiopulmonary process.
[2023-08-22] MEDS: ASPIRIN 81 MG PO STA (16:07)
[2023-08-22] MEDS: LORazepam 0.5 MG TAB PO STA (16:07)
[2023-08-22] MEDS: NITROGLYCERIN SL TABS 0.4 MG TAB SUBLINGUAL PRN (16:08)
[2023-08-22] MEDS ORDERED: MORPHINE SULFATE 4 MG/ML SYRINGE IV PRN (16:30)
[2023-08-22] MEDS ORDERED: NALOXONE 0.4 MG/ML 1 ML VIAL IV PRN (16:30)
[2023-08-22] MEDS ORDERED: ALPRAZolam 0.25 MG TAB PO PRN (16:31)
--- NOTE | 2023-08-22 16:33 | ED ---
General Adult HPI - General Chief complaint: Chest Pain Stated complaint: pacemaker pain Time Seen by Provider: 08/22/23 15:25 Source: patient, RN notes reviewed, old records reviewed Mode of arrival: ambulatory Limitations: no limitations - History of Present Illness Initial comments: Patient is a 58-year-old female with past medical history remarkable for atrial fibrillation on Coumadin with a pacemaker defibrillator, COPD, hypertension who presents emergency department for 1 week of pacemaker pain. There is been on and off for the last week with no known palliative or provocative factors but for the last 1 day or so it has been more of a dull ache that has not improved. States she does not have cardiac stents. Denies any chest pain or shortness of breath otherwise. Has no other symptoms. Workup started in triage. Presents for further evaluation at this time. Points directly to the pacemaker as the source of the plane. Seems to be improved when pressing on the pacemaker. - Related Data Home Medications Medication Instructions Recorded Confirmed Spironolactone [Aldactone] 25 mg PO HS@1700 08/15/20 08/22/23 Amiodarone [Cordarone] 100 mg PO DAILY@0700 06/20/21 08/22/23 Atorvastatin [Lipitor] 10 mg PO HS@1700 06/20/21 08/22/23 Multivitamins, Thera [Multivitamin 1 tab PO DAILY@0700 09/05/22 08/22/23 (formulary)] Warfarin [Coumadin] 5 mg PO HS@1700 03/09/23 08/22/23 Ibuprofen [Motrin Ib] 200 mg PO Q8H PRN 05/08/23 08/22/23 [place]-3/Dha/Epa/Fish Oil [Fish Oil 1 cap PO DAILY@0700 05/08/23 08/22/23 1,000 mg Softgel] carvediloL [Coreg] 6.25 mg PO BID@0700,1700 05/08/23 08/22/23 lisinopriL [Zestril] 2.5 mg PO DAILY@0700 05/08/23 08/22/23 Previous Rx's Medication Instructions Recorded ALPRAZolam [Xanax] 0.25 mg PO TID PRN #30 tab 05/10/23 Allergies Allergy/AdvReac Type Severity Reaction Status Date / Time hydromorphone [From Dilaudid] AdvReac Nausea & Verified 08/22/23 16:01 Vomiting Review of Systems ROS Statement: Those systems with pertinent positive or pertinent negative responses have been documented in the HPI. Review of Systems: CONST: Denies fever EYES: Denies blurry vision ENT: Denies nasal congestion C/V: Endorses chest pain RESP: Denies shortness of breath GI: Denies abdominal pain : Denies dysuria SKIN: Denies rash. MSK: Denies joint pain. NEURO: Denies headache ROS Other: All systems not noted in ROS Statement are negative. Past Medical History Past Medical History: Chest Pain / Angina, COPD, Hyperlipidemia, Hypertension, Myocardial Infarction ([place]), Pneumonia, Pulmonary Embolus (PE) Additional Past Medical History / Comment(s): cardiomyopathy, PE (6yrs ago), brain aneursym [place] Last Myocardial Infarction Date:: 5 yrs ago History of Any Multi-Drug Resistant Organisms: None Reported Past Surgical History: AICD, Cholecystectomy, Heart Catheterization Additional Past Surgical History / Comment(s): AICD defibrillator placed 6 years ago, Right perforated eardrum Past Anesthesia/Blood Transfusion Reactions: No Reported Reaction Type of Cardiac Device: AICD Device Placement Date:: 2015 Past Psychological History: Anxiety, Depression Smoking Status: Former smoker Past Alcohol Use History: None Reported Past Drug Use History: None Reported - Past Family History Mother Family Medical History: Diabetes Mellitus, Hypertension Father Family Medical History: No Reported History General Exam - General Exam Comments Initial Comments: General: Appears in no acute distress. HEAD: Normal with no signs of head trauma. EYES: PERRLA, EOMI, conjunctiva normal, no discharge. ENT: Hearing grossly intact, normal oropharynx. RESPIRATORY: Clear breath sounds bilaterally. No wheezes, rales, or rhonchi. C/V: Regular rate and rhythm. S1 and S2 auscultated, no edema, peripheral pulses 2+ and intact throughout. Pain reproducible to palpation over the left pacemaker site as well as the surrounding muscle. ABD: Abd is soft, nontender, nondistended EXT: Normal range of motion, no obvious deformity SKIN: No rashes or lesions observed on exposed skin. NEURO: Alert and oriented x 4. Cranial nerves II-XII intact. No focal sensory or strength deficits. Limitations: no limitations Course Vital Signs 08/22/23 08/22/23 08/22/23 13:14 15:24 18:24 Temperature 98.1 F Pulse Rate 94 96 Pulse Rate [ 98 Weed Inspector ] Respiratory 18 18 Rate Blood Pressure 154/98 116/82 O2 Sat by Pulse 97 98 Oximetry Medical Decision Making - Medical Decision Making Was pt. sent in by a medical professional or institution (, [facility], [facility] [employer], urgent care, hospital, or assisted...) When possible be specific @ -No Did you speak to anyone other than the patient for history (EMS, parent, family, police, friend...)? What history was obtained from this source @ -No Did you review nursing and triage notes (agree or disagree)? Why? @ -I reviewed and agree with nursing and triage notes Were old charts reviewed (outside hosp., previous admission, EMS record, old EKG, old radiological studies, urgent care reports/EKG's, assisted records)? Report findings @ -Old charts reviewed Differential Diagnosis (chest pain, altered mental status, abdominal pain women, abdominal pain men, vaginal bleeding, weakness, fever, dyspnea, syncope, headache, dizziness, GI bleed, back pain, seizure, CVA, palpatations, mental health, musculoskeletal)? @ -Differential Chest Pain: Stable Angina, Unstable Angina, STEMI, NSTEMI Aortic Dissection, Pneumothorax, Musculoskeletal, Esophageal Spasm GERD, Cholecystitis, Pancreatitis, Zoster, this is not meant to be an all-inclusive list. EKG interpreted by me (3pts min.). @ -As above X-rays interpreted by me (1pt min.). @ -Chest x-ray reveals no obvious acute cardiopulmonary process. CT interpreted by me (1pt min.). @ -None done U/S interpreted by me (1pt. min.). @ -None done What testing was considered but not performed or refused? (CT, X-rays, U/S, labs)? Why? @ -None What meds were considered but not given or refused? Why? @ -None Did you discuss the management of the patient with other professionals (professionals i.e. , [facility], [facility] [employer] [facility], lab, RT, psych nurse, social insurance adviser, belt repairer, teacher, executive vice president and chief operating officer, pillowcase sewer)? Give summary @ -I spoke with the attending physician, Dr. Mosqueda who accepted the patient. Was smoking cessation discussed for >3mins.? @ -No Was critical care preformed (if so, how long)? @ -No Were there social determinants of health that impacted care today? How? (Homel essness, low income, unemployed, alcoholism, drug addiction, transportation, low edu. Level, literacy, decrease access to med. care, long-term, rehab)? @ -No Was there de-escalation of care discussed even if they declined (Discuss DNR or withdrawal of care, Hospice)? DNR status @ -No What co-morbidities impacted this encounter? (DM, HTN, Smoking, COPD, CAD, Cancer, CVA, ARF, Chemo, Hep., AIDS, mental health diagnosis, sleep apnea, morbid obesity)? @ -None Was patient admitted / discharged? Hospital course, mention meds given and route, prescriptions, significant lab abnormalities, going to OR and other pertinent info. @ -Based on the patient's presentation and physical exam, presents with candis cristobal pacemaker pain but points over the left side of her chest. We will obtain cardiopulmonary workup which was obtained while patient was in triage. I evaluate the patient when she was placed in room 22 after workup was completed. Vital signs are within acceptable limits. Patient's labs remarkable for a therapeutic INR of 2.0. Troponin is undetectable. Remainder labs within acceptable limits. Chest x-ray shows no obvious acute cardiopulmonary process. EKG shows a paced rhythm with no obvious signs of acute ischemia. I discussed with the patient. We will attempt nitro administration which she was in agreement with. I will provide her with a dose of Ativan at her request for anxiety as well as 1 dose of nitro, 324 mg of aspirin. She was in agreement this plan. She states that the nitro made her feel more anxious and did not improve her symptoms whatsoever. She has a headache now. We will switch to morphine at this time. She will be given additional Ativan. Patient will be admitted to observation for closer monitoring. Patient is feeling improved following morphine administration and second dose of Ativan. Symptoms have largely resolved. We will continue to monitor. Cardiology consulted. I spoke with the attending physician, Dr. Mosqueda who accepted the patient. Undiagnosed new problem with uncertain prognosis? @ -No Drug Therapy requiring intensive monitoring for toxicity (Heparin, Nitro, Insulin, Cardizem)? @ -No Were any procedures done? @ -No Diagnosis/symptom? @ -Chest pain Acute, or Chronic, or Acute on Chronic? @ -Acute Uncomplicated (without systemic symptoms) or Complicated (systemic symptoms)? @ -Complicated Side effects of treatment? @ -No Exacerbation, Progression, or Severe Exacerbation? @ -No Poses a threat to life or bodily function? How? (Chest pain, [place], [place], pneumonia, PE, COPD, DKA, ARF, appy, cholecystitis, CVA, Diverticulitis, Homicidal, Suicidal, threat to staff... and all critical care pts) @ -Potentially, yes - Lab Data Result diagrams: 08/22/23 13:36 08/22/23 13:36 Lab Results 08/22/23 08/22/23 08/22/23 Range/Units 13:36 13:36 13:36 WBC 6.5 (3.8-10.6) k/uL RBC 4.80 (3.80-5.40) m/uL Hgb 14.0 (11.4-16.0) gm/dL Hct 40.9 (34.0-46.0) % MCV 85.1 (80.0-100.0) fL MCH 29.0 (25.0-35.0) pg MCHC 34.1 (31.0-37.0) g/dL RDW 15.4 (11.5-15.5) % Plt Count 152 (150-450) k/uL MPV 9.8 Neutrophils % 64 % Lymphocytes % 25 % Monocytes % 6 % Eosinophils % 4 % Basophils % 1 % Neutrophils # 4.2 (1.3-7.7) k/uL Lymphocytes # 1.6 (1.0-4.8) k/uL Monocytes # 0.4 (0-1.0) k/uL Eosinophils # 0.2 (0-0.7) k/uL Basophils # 0.0 (0-0.2) k/uL Poikilocytosis Slight PT 20.0 H (10.0-12.5) sec INR 2.0 H (<1.2) APTT 28.3 (22.0-30.0) sec Sodium 141 (137-145) mmol/L Potassium 4.4 (3.5-5.1) mmol/L Chloride 110 H (98-107) mmol/L Carbon Dioxide 21 L (22-30) mmol/L Anion Gap 10 mmol/L BUN 11 (7-17) mg/dL Creatinine 0.75 (0.52-1.04) mg/dL Est GFR (CKD-EPI)AfAm >90 (>60 ml/min/1.73 sqM) Est GFR (CKD-EPI)NonAf 88 (>60 ml/min/1.73 sqM) Glucose 98 (74-99) mg/dL Calcium 9.6 (8.4-10.2) mg/dL Magnesium 1.9 (1.6-2.3) mg/dL Total Bilirubin 0.6 (0.2-1.3) mg/dL AST 46 H (14-36) U/L ALT 32 (4-34) U/L Alkaline Phosphatase 106 (38-126) U/L Troponin I (0.000-0.034) ng/mL Total Protein 7.4 (6.3-8.2) g/dL Albumin 4.6 (3.5-5.0) g/dL 08/22/23 Range/Units 13:36 WBC (3.8-10.6) k/uL RBC (3.80-5.40) m/uL Hgb (11.4-16.0) gm/dL Hct (34.0-46.0) % MCV (80.0-100.0) fL MCH (25.0-35.0) pg MCHC (31.0-37.0) g/dL RDW (11.5-15.5) % Plt Count (150-450) k/uL MPV Neutrophils % % Lymphocytes % % Monocytes % % Eosinophils % % Basophils % % Neutrophils # (1.3-7.7) k/uL Lymphocytes # (1.0-4.8) k/uL Monocytes # (0-1.0) k/uL Eosinophils # (0-0.7) k/uL Basophils # (0-0.2) k/uL Poikilocytosis PT (10.0-12.5) sec INR (<1.2) APTT (22.0-30.0) sec Sodium (137-145) mmol/L Potassium (3.5-5.1) mmol/L Chloride (98-107) mmol/L Carbon Dioxide (22-30) mmol/L Anion Gap mmol/L BUN (7-17) mg/dL Creatinine (0.52-1.04) mg/dL Est GFR (CKD-EPI)AfAm (>60 ml/min/1.73 sqM) Est GFR (CKD-EPI)NonAf (>60 ml/min/1.73 sqM) Glucose (74-99) mg/dL Calcium (8.4-10.2) mg/dL Magnesium (1.6-2.3) mg/dL Total Bilirubin (0.2-1.3) mg/dL AST (14-36) U/L ALT (4-34) U/L Alkaline Phosphatase (38-126) U/L Troponin I <0.012 (0.000-0.034) ng/mL Total Protein (6.3-8.2) g/dL Albumin (3.5-5.0) g/dL - EKG Data -: EKG Interpreted by Me EKG Comments: 12-lead Electrocardiogram Interpretation Note EKG was reviewed and interpreted by myself. 12-lead ECG performed at 1322 is interpreted by me as revealing paced rhythm at a rate of 94 beats per minute. [place] is atypical. QRS is 166 ms, QTc is 477 ms.. There were no ST or T wave abnormalities to suggest myocardial ischemia or injury. . By my interpretation this EKG is non-diagnostic for acute ischemia. Disposition Clinical Impression: Chest pain Disposition: ADMITTED IP TO THIS HOSP Condition: Stable Time of Disposition: 16:21
[2023-08-22] MEDS: LORazepam 1 MG TAB PO STA (16:42)
[2023-08-22] MEDS: MORPHINE SULFATE 4 MG/ML SYRINGE IVP STA (16:43)
[2023-08-22] MEDS: SODIUM CHLORIDE 0.9% 500 ML 500 ML IV STA (16:52)
[2023-08-22] MEDS: carvediloL 6.25 MG TAB PO SCH (16:58)
[2023-08-22] MEDS: SPIRONOLACTONE 25 MG TAB PO SCH (16:58)
[2023-08-22] MEDS: ATORVASTATIN 10 MG TAB PO SCH (16:58)
[2023-08-22] MEDS: WARFARIN 5 MG TAB PO SCH (16:58)
[2023-08-22] MEDS: IBUPROFEN 200 MG TAB PO PRN (20:15)
[2023-08-23] MEDS: AMIODARONE 200 MG TAB PO SCH (05:46)
[2023-08-23 11:38] LABS: Basophils % (A) 0 %; Eosinophils # (A) 0.2 k/uL (0-0.7); Eosinophils % (A) 4 %; HCT 39.3 % (34.0-46.0); HGB 13.4 gm/dL (11.4-16.0); Lymphocytes # (A) 1.4 k/uL (1.0-4.8); Lymphocytes % (A) 26 %; MCH 28.7 pg (25.0-35.0); MCV 84.5 fL (80.0-100.0); Mean Platelet Volume 10.3; Monocytes # (A) 0.3 k/uL (0-1.0); Monocytes % (A) 6 %; Neutrophils # (A) 3.2 k/uL (1.3-7.7); Neutrophils % (A) 61 %; Platelet Count 159 k/uL (150-450); Poikilocytosis Slight; RBC 4.65 m/uL (3.80-5.40); RDW 15.9 % (11.5-15.5); WBC 5.2 k/uL (3.8-10.6)
[2023-08-23 11:40] LABS: African American GFR (CKD) >90 (>60 ml/min/1.73 sqM); Anion Gap 7 mmol/L; Blood Urea Nitrogen 12 mg/dL (7-17); Calcium 9.3 mg/dL (8.4-10.2); Carbon Dioxide 25 mmol/L (22-30); Chloride 108 mmol/L (98-107); Glucose 102 mg/dL (74-99); Non-African American GFR(CKD) 79 (>60 ml/min/1.73 sqM); Potassium 4.1 mmol/L (3.5-5.1); Sodium 140 mmol/L (137-145)
[2023-08-23 11:43] LABS: Prothrombin Time 20.4 sec (10.0-12.5)
--- NOTE | 2023-08-23 11:44 | P.CRDCN ---
History of Present Illness Consult date: 08/23/23 Consult reason: chest pain History of present illness: History of present illness: This is a 58-year-old female patient of Dr. Reece with past medical history of nonischemic cardiomyopathy status post AICD, prior pulmonary embolism on warfarin therapy, hypertension, COPD. We have been asked to evaluate the patient for chest pain. Patient gives history that she has a dull ache in her chest that would not go away. She had it yesterday and she took Tylenol. Chest pain actually started 1 week ago when she was scrubbing floors and she thought she overdid it. She has baseline shortness of breath that is unchanged. She states that pressure on the chest makes it feel better. No tenderness. Patient quit smoking in 2012. EKG ventricularly paced rhythm Chest x-ray: No acute process CBC is unremarkable. INR 2. Sodium 141, potassium 4.4, chloride 110, CO2 21, BUN 11 and creatinine 0.75. AST is 46 otherwise liver function tests are normal. Magnesium 1.9. Troponin negative x 3. Home cardiac medications: Amiodarone 100 mg daily, atorvastatin 10 mg at bedtime, Coreg 6.25 mg twice daily, lisinopril 2.5 mg daily, Aldactone 25 mg e vening, warfarin 5 mg evening. Echocardiogram performed 05/10/2023 revealed EF of 40 to 45%, technically difficult study. Pacemaker wire in the right ventricular cavity. Review Of Systems: At the time of my exam: CONSTITUTIONAL: Denies fever or chills. HEENT: Denies blurred vision, vision changes, or eye pain. Denies hemoptysis CARDIOVASCULAR: Denies chest pain. Denies orthopnea. Denies PND. Denies palpitations RESPIRATORY: Denies shortness of breath. GASTROINTESTINAL: Denies abdominal pain. Denies nausea or vomiting. HEMATOLOGIC: Denies bleeding disorders. GENITOURINARY: Denies any blood in urine. SKIN: Denies pruitis. Denies rash. Physical examination: Gen: This is a 58-year-old female, no acute distress VS: reviewed HEENT: Head is atraumatic, normocephalic. Pupils equal, round. Sclerae is anicteric. NECK: Supple. No JVD. LUNGS: Clear to auscultation. No wheezes or rhonchi. No intercostal retractions. HEART: Regular rate and rhythm. No murmur. No tenderness to chest wall. No tenderness over AICD. ABDOMEN: Soft No tenderness. EXTREMITIES: No pedal edema. No calf tenderness. NEUROLOGICAL: Patient is awake, alert and oriented x3. Assessment: Atypical chest pain, acute coronary syndrome ruled out Nonischemic cardiomyopathy Status post AICD Severe RV dilatation Prior history of PE on Coumadin Plan: Continue patient's home cardiac medications Obtain 2-D echocardiogram and Doppler study to assess cardiac structure and function If echocardiogram is not changed from prior, patient is cleared for discharge home today. Patient may follow-up with Dr. Reece in 1 to 2 weeks. Thank you kindly for this consultation. Nurse practitioner note has been reviewed, I agree with documented findings and plan of care. Patient was seen and examined. Past Medical History Past Medical History: Chest Pain / Angina, COPD, Hyperlipidemia, Hypertension, Myocardial Infarction ([place]), Pneumonia, Pulmonary Embolus ([place]) Additional Past Medical History / Comment(s): cardiomyopathy, PE (6yrs ago), brain aneursym [place] Last Myocardial Infarction Date:: 5 yrs ago History of Any Multi-Drug Resistant Organisms: None Reported Past Surgical History: AICD, Cholecystectomy, Heart Catheterization Additional Past Surgical History / Comment(s): AICD defibrillator placed 6 years ago, Right perforated eardrum Past Anesthesia/Blood Transfusion Reactions: No Reported Reaction Type of Cardiac Device: AICD Device Placement Date:: 2015 Past Psychological History: Anxiety, Depression Smoking Status: Former smoker Past Alcohol Use History: None Reported Past Drug Use History: None Reported - Past Family History Mother Family Medical History: Diabetes Mellitus, Hypertension Father Family Medical History: No Reported History Medications and Allergies Home Medications Medication Instructions Recorded Confirmed Type Spironolactone [Aldactone] 25 mg PO HS@1700 08/15/20 08/22/23 History Amiodarone [Cordarone] 100 mg PO DAILY@0700 06/20/21 08/22/23 History Atorvastatin [Lipitor] 10 mg PO HS@1700 06/20/21 08/22/23 History Multivitamins, Thera [Multivitamin 1 tab PO DAILY@0700 09/05/22 08/22/23 History (formulary)] Warfarin [Coumadin] 5 mg PO HS@1700 03/09/23 08/22/23 History Ibuprofen [Motrin Ib] 200 mg PO Q8H PRN 05/08/23 08/22/23 History [place]-3/Dha/Epa/Fish Oil [Fish Oil 1 cap PO DAILY@0700 05/08/23 08/22/23 History 1,000 mg Softgel] carvediloL [Coreg] 6.25 mg PO BID@0700,1700 05/08/23 08/22/23 History lisinopriL [Zestril] 2.5 mg PO DAILY@0700 05/08/23 08/22/23 History ALPRAZolam [Xanax] 0.25 mg PO TID PRN #30 tab 05/10/23 08/22/23 Rx Allergies Allergy/AdvReac Type Severity Reaction Status Date / Time hydromorphone [From Dilaudid] AdvReac Nausea & Verified 08/22/23 16:01 Vomiting Physical Exam Vitals: Vital Signs Temp Pulse Pulse Resp BP BP Pulse Ox 08/23/23 02:04 97.8 F 91 16 111/62 93 L 08/22/23 19:37 97.7 F 87 16 123/75 96 08/22/23 18:24 96 18 116/82 98 08/22/23 15:24 98 08/22/23 13:14 98.1 F 94 18 154/98 97 Intake and Output 08/22/23 08/23/23 08/23/23 22:59 06:59 14:59 Other: Voiding Method Toilet Toilet # Voids 1 1 Weight 99.79 kg Results 08/22/23 13:36 08/22/23 13:36 Cardiac Enzymes 08/22/23 08/22/23 08/22/23 Range/Units 13:36 13:36 18:19 AST 46 H (14-36) U/L Troponin I <0.012 <0.012 (0.000-0.034) ng/mL 08/22/23 Range/Units 21:28 AST (14-36) U/L Troponin I <0.012 (0.000-0.034) ng/mL Coagulation 08/22/23 Range/Units 13:36 PT 20.0 H (10.0-12.5) sec APTT 28.3 (22.0-30.0) sec CBC 08/22/23 Range/Units 13:36 WBC 6.5 (3.8-10.6) k/uL RBC 4.80 (3.80-5.40) m/uL Hgb 14.0 (11.4-16.0) gm/dL Hct 40.9 (34.0-46.0) % Plt Count 152 (150-450) k/uL Comprehensive Metabolic Panel 08/22/23 Range/Units 13:36 Sodium 141 (137-145) mmol/L Potassium 4.4 (3.5-5.1) mmol/L Chloride 110 H (98-107) mmol/L Carbon Dioxide 21 L (22-30) mmol/L BUN 11 (7-17) mg/dL Creatinine 0.75 (0.52-1.04) mg/dL Glucose 98 (74-99) mg/dL Calcium 9.6 (8.4-10.2) mg/dL AST 46 H (14-36) U/L ALT 32 (4-34) U/L Alkaline Phosphatase 106 (38-126) U/L Total Protein 7.4 (6.3-8.2) g/dL Albumin 4.6 (3.5-5.0) g/dL Current Medications Generic Name Dose Route Start Last Admin Trade Name Freq PRN Reason Stop Dose Admin Alprazolam 0.25 mg 08/22/23 16:31 Alprazolam 0.25 Mg Tab PO TID PRN Anxiety Amiodarone HCl 100 mg 08/23/23 07:00 08/23/23 05:46 Amiodarone 200 Mg Tab PO 100 mg DAILY@0700 [facility] Administration Atorvastatin Calcium 10 mg 08/22/23 17:00 08/22/23 16:58 Atorvastatin 10 Mg Tab PO 10 mg HS@1700 [facility] Administration Carvedilol 6.25 mg 08/22/23 17:00 08/23/23 05:46 Carvedilol 6.25 Mg Tab PO 6.25 mg BID@0700,1700 [facility] Administration Ibuprofen 200 mg 08/22/23 16:31 08/22/23 20:15 Ibuprofen 200 Mg Tab PO 200 mg Q8H PRN Administration Pain Lisinopril 2.5 mg 08/23/23 07:00 08/23/23 05:46 Lisinopril 2.5 Mg Tab PO 2.5 mg DAILY@0700 [facility] Administration Miscellaneous Information 0 each 08/22/23 16:47 Warfarin Per Pharmacy MISCELLANE DIRECTED PRN PER PROTOCOL Morphine Sulfate 4 mg 08/22/23 16:30 Morphine Sulfate 4 Mg/Ml Syringe IV Q4HR PRN Severe Pain (Scale 7 to 10) Naloxone HCl 0.2 mg 08/22/23 16:30 Naloxone 0.4 Mg/Ml 1 Ml Vial IV Q2M PRN Opioid Reversal Nitroglycerin 0.4 mg 08/22/23 15:35 08/22/23 16:08 Nitroglycerin Sl Tabs 0.4 Mg Tab SUBLINGUAL 0.4 mg Q5M PRN Administration Chest Pain Spironolactone 25 mg 08/22/23 17:00 08/22/23 16:59 Spironolactone 25 Mg Tab PO 25 mg HS@1700 [facility] Administration Warfarin Sodium 5 mg 08/22/23 17:00 08/22/23 16:58 Warfarin 5 Mg Tab PO 5 mg HS@1700 [facility] Administration Protocol Intake and Output 08/22/23 08/23/23 08/23/23 22:59 06:59 14:59 Other: Voiding Method Toilet Toilet # Voids 1 1 Weight 99.79 kg 08/22/23 13:36 08/22/23 13:36
--- NOTE | 2023-08-23 13:00 | CA ---
Transthoracic Echo Report Name: Sneha Beth Age: 58 Gender: F : 1965 Exam Date: 08/23/2023 10:14 Exam Location: [facility] Ht (in): 68 Wt (lb): 220 Ordering Physician: Dary Danielson Attending/Referring Phys: [employer] Despatch Hand Yuni Rene RDCS Procedure CPT: Indications: LVF Cardiac Hx: Technical Quality: Fair Contrast 1: Total Dose (mL): Contrast 2: Total Dose (mL): MEASUREMENTS (Male / Female) Normal Values 2D ECHO Aortic Root Diameter 3.5 cm LA Systolic Diameter LX 4.6 cm 3.0 - 4.0 / 2.7 - 3.8 cm DOPPLER AV Peak Velocity 121.8 cm/s AV Peak Gradient 5.9 mmHg AV Mean Velocity 92.1 cm/s AV Mean Gradient 3.7 mmHg AV Velocity Time Integral 21.2 cm LVOT Peak Velocity 103.4 cm/s LVOT Peak Gradient 4.3 mmHg Mitral E Point Velocity 97.5 cm/s Mitral A Point Velocity 107.6 cm/s Mitral E to A Ratio 0.9 MV Deceleration Time 194.0 ms MV E' Velocity 4.7 cm/s Mitral E to MV E' Ratio 20.9 PV Peak Velocity 87.6 cm/s PV Peak Gradient 3.1 mmHg FINDINGS Left Ventricle Left ventricular ejection fraction is estimated at 40-45 %. Moderate global hypokinesis Right Ventricle Right ventricle not well visualized.catheter/pacemaker wire in the right ventricular cavity. Right Atrium Right atrium not well visualized. Left Atrium Moderately increased left atrial diameter. Mitral Valve Structurally normal mitral valve. Mild mitral regurgitation. Aortic Valve No aortic valve stenosis or regurgitation. Tricuspid Valve Tricuspid valve not well visualized. Pulmonic Valve No pulmonic regurgitation.pulmonic valve not well visualized. Pericardium No thickening/calcification of the pericardium. Aorta Normal size aortic root and proximal ascending aorta. CONCLUSIONS Technically difficult study. Moderate global hypokinesis with no clear segmental wall motion abnormality Very limited Doppler study with mild mitral regurgitation Previewed by: Dr. Jarad Hernadez MD (Electronically Signed) Final Date: 23 August 2023 13:00
[2023-08-23 15:08] VITALS: BP 108/73; PULSE 90; RESP 12; TEMP 98.2
--- NOTE | 2023-08-23 20:28 | DS ---
DISCHARGE SUMMARY CHIEF COMPLAINT: Chest pain. HISTORY OF PRESENT ILLNESS AND PHYSICAL EXAM: Details of this lady's history and physical can be found in the initial workup. LABORATORY STUDIES: While she was in the hospital, she had laboratory studies, details of which can be found in the laboratory section of her chart. COURSE IN THE HOSPITAL: After admission, she was placed on bedrest, started intravenous fluids and had cardiac enzymes. They were normal. She was seen by Cardiology and it was felt that the pain was in the area of her pacemaker, nothing further need to be done. It was felt she could be discharged. She will go home on her usual activity, diet, and medications and will be seen in the office in several days. FINAL DIAGNOSES: 1. Left upper outer anterior chest wall pain in the area of her pacemaker. 2. Coronary artery disease. 3. Atrial fibrillation. 4. Previous cerebrovascular accident. OPERATIONS: None. CONSULTATIONS: Cardiology. She is improved. MMODL / IJN: [id number] /
--- NOTE | 2023-08-23 21:28 | HP ---
HISTORY AND PHYSICAL CHIEF COMPLAINT: Chest pain. HISTORY OF PRESENT ILLNESS: This is another of many admissions for this 58-year-old white female with a great deal of anxiety. She presented to the emergency room with pain in the left anterior chest. She had no shortness of breath, diaphoresis, palpitations, syncope, etc. It seemed to be in the area of her pacemaker in the left upper outer chest. REVIEW OF SYSTEMS: She has had no other complaints such as fever and chills, etc. Past medical history, family history, and personal and social histories reveal that she has numerous problems including history of atrial fibrillation, hyperlipidemia, coronary artery disease, cardiomyopathy, previous pulmonary embolism, and myocardial infarction. She is also being diagnosed as having a cerebral aneurysm. MEDICATIONS: She is on numerous medications including, 1. Jantoven. 2. Atorvastatin. 3. Amiodarone. 4. Lisinopril. 5. Carvedilol. 6. Spironolactone. 7. Trelegy. 8. Protonix. 9. Coumadin. 10.Xanax. 11.DuoNeb. 12.Lasix. 13.Vitamin D3. ALLERGIES: She is allergic to Dilaudid. SOCIAL HISTORY: She used to smoke, but she does not any longer. PHYSICAL EXAMINATION: VITAL SIGNS: Normal. HEAD, EARS, EYES, NOSE, MOUTH AND THROAT: Normal. CHEST: Clear. CARDIAC: Demonstrates an irregularly irregular rhythm. Her pain seems to be over her pacemaker site in the left upper chest. ABDOMEN: Soft and nontender. EXTREMITIES: Normal. NEUROLOGIC: She is intact. ASSESSMENT: She is admitted to the hospital with diagnoses of: 1. Anterior chest wall pain. 2. History of coronary artery disease, atrial fibrillation, pulmonary emboli, and a cerebral aneurysm. PLAN: 1. Bedrest. 2. IV fluids. 3. Consult Cardiology. MMODL / IJN: [id number] /
== END 2023-08-23 15:55 | disposition home or self-care (01) ==
LOC: EC 13:10 → 6NMEDSUR 16:30
PROVIDERS: ADMIT Family Medicine; ATTEND Family Medicine
DX: R07.89 Other chest pain (principal); I48.91 Unspecified atrial fibrillation; J44.9 Chronic obstructive pulmonary disease, unspecified; I10 Essential (primary) hypertension; E78.5 Hyperlipidemia, unspecified; F41.9 Anxiety disorder, unspecified; I25.10 Atherosclerotic heart disease of native coronary artery without angina pectoris; I42.8 Other cardiomyopathies; F32.A Depression, unspecified; I25.2 Old myocardial infarction; Z86.711 Personal history of pulmonary embolism; Z86.73 Personal history of transient ischemic attack (TIA), and cerebral infarction without residual deficits; Z87.891 Personal history of nicotine dependence; Z95.810 Presence of automatic (implantable) cardiac defibrillator; Z79.01 Long term (current) use of anticoagulants; Z79.899 Other long term (current) drug therapy; Z88.5 Allergy status to narcotic agent
CPT/HCPCS: 96361; 96374; 99285; 36415; 93005; 93306; 80053; 80048; 83735; 84484; 85025 ×2; 85610 ×2; 85730; 71046; G0378 ×2; J2270

== ENCOUNTER 2023-08-25 18:53 | Observation (INO) | payer MEDICARE ==
[2023-08-25 19:40] LABS: Basophils % (A) 1 %; Eosinophils # (A) 0.2 k/uL (0-0.7); Eosinophils % (A) 3 %; HCT 40.7 % (34.0-46.0); HGB 13.9 gm/dL (11.4-16.0); Lymphocytes # (A) 1.9 k/uL (1.0-4.8); Lymphocytes % (A) 28 %; MCHC 34.2 g/dL (31.0-37.0); MCV 84.7 fL (80.0-100.0); Mean Platelet Volume 10.1; Monocytes # (A) 0.4 k/uL (0-1.0); Monocytes % (A) 6 %; Neutrophils # (A) 4.2 k/uL (1.3-7.7); Neutrophils % (A) 61 %; Platelet Count 156 k/uL (150-450); Poikilocytosis Slight; RBC 4.81 m/uL (3.80-5.40); RDW 15.3 % (11.5-15.5)
[2023-08-25 19:50] LABS: ALT 28 U/L (4-34); AST 33 U/L (14-36); African American GFR (CKD) >90 (>60 ml/min/1.73 sqM); Albumin 4.6 g/dL (3.5-5.0); Alkaline Phosphatase 108 U/L (38-126); Blood Urea Nitrogen 12 mg/dL (7-17); Carbon Dioxide 25 mmol/L (22-30); Glucose 97 mg/dL (74-99); Magnesium 1.8 mg/dL (1.6-2.3); Non-African American GFR(CKD) 83 (>60 ml/min/1.73 sqM); Sodium 140 mmol/L (137-145); Total Bilirubin 0.6 mg/dL (0.2-1.3); Total Protein 7.4 g/dL (6.3-8.2)
[2023-08-25 20:15] LABS: INR 1.8 (<1.2); Partial Thromboplastin Time 26.5 sec (22.0-30.0); Prothrombin Time 17.9 sec (10.0-12.5)
[2023-08-25 20:27] LABS: Anion Gap 8 mmol/L; Chloride 107 mmol/L (98-107); Potassium 3.7 mmol/L (3.5-5.1)
--- NOTE | 2023-08-25 20:54 | ED ---
Chest Pain HPI - General Chief Complaint: Chest Pain Stated Complaint: chest pain Time Seen by Provider: 08/25/23 19:41 Source: patient Mode of arrival: ambulatory Limitations: no limitations - History of Present Illness Initial Comments: 58-year-old female with a past medical history significant for coronary artery disease status post stenting on Coumadin presenting to the ED with a chief complaint of myalgias. Patient states yesterday she started to feel "just rundown". Today states that she woke up woke up with myalgias, arthralgias, headache, and intermittent nausea/diarrhea. Denies chest pain or shortness of breath. When asked about chest pain, she replies "I just hurt all over". Denies abdominal pain. Denies changes in bowel or bladder habits. Denies cough, congestion sore throat. No other complaints at this time. - Related Data Home Medications Medication Instructions Recorded Confirmed Spironolactone [Aldactone] 25 mg PO HS@1700 08/15/20 08/25/23 Amiodarone [Cordarone] 100 mg PO DAILY@0700 06/20/21 08/25/23 Atorvastatin [Lipitor] 10 mg PO HS@1700 06/20/21 08/25/23 Multivitamins, Thera [Multivitamin 1 tab PO DAILY@0700 09/05/22 08/25/23 (formulary)] Warfarin [Coumadin] 5 mg PO HS@1700 03/09/23 08/25/23 Ibuprofen [Motrin Ib] 200 - 800 mg PO Q8H PRN 05/08/23 08/25/23 [place]-3/Dha/Epa/Fish Oil [Fish Oil 1 cap PO DAILY@0700 05/08/23 08/25/23 1,000 mg Softgel] carvediloL [Coreg] 6.25 mg PO BID@0700,1700 05/08/23 08/25/23 lisinopriL [Zestril] 2.5 mg PO DAILY@0700 05/08/23 08/25/23 Acetaminophen Tab [Tylenol Tab] 1,000 mg PO Q6HR PRN 08/25/23 08/25/23 Previous Rx's Medication Instructions Recorded ALPRAZolam [Xanax] 0.25 mg PO TID PRN #30 tab 05/10/23 Allergies Allergy/AdvReac Type Severity Reaction Status Date / Time hydromorphone [From Dilaudid] AdvReac Nausea & Verified 08/25/23 22:56 Vomiting Review of Systems ROS Statement: Those systems with pertinent positive or pertinent negative responses have been documented in the HPI. ROS Other: All systems not noted in ROS Statement are negative. Past Medical History Past Medical History: Chest Pain / Angina, COPD, Hyperlipidemia, Hypertension, Myocardial Infarction ([place]), Pneumonia, Pulmonary Embolus ([place]) Additional Past Medical History / Comment(s): cardiomyopathy, PE (6yrs ago), brain aneursym [place] Last Myocardial Infarction Date:: 5 yrs ago History of Any Multi-Drug Resistant Organisms: None Reported Past Surgical History: AICD, Cholecystectomy, Heart Catheterization Additional Past Surgical History / Comment(s): AICD defibrillator placed 6 years ago, Right perforated eardrum Past Anesthesia/Blood Transfusion Reactions: No Reported Reaction Type of Cardiac Device: AICD Device Placement Date:: 2015 Past Psychological History: Anxiety, Depression Smoking Status: Former smoker Past Alcohol Use History: None Reported Past Drug Use History: None Reported - Past Family History Mother Family Medical History: Diabetes Mellitus, Hypertension Father Family Medical History: No Reported History General Exam Limitations: no limitations General appearance: alert Eye exam: Present: normal appearance Neck exam: Present: normal inspection Respiratory exam: Present: normal lung sounds bilaterally Cardiovascular Exam: Present: regular rate GI/Abdominal exam: Present: soft (No rebound guarding or rigidity.) Neurological exam: Present: alert, oriented X3 Skin exam: Present: warm, dry Course Vital Signs 08/25/23 08/25/23 08/25/23 18:59 22:37 23:47 Temperature 97.8 F Pulse Rate 120 H 107 H 102 H Respiratory 20 20 20 Rate Blood Pressure 148/88 150/112 150/95 O2 Sat by Pulse 98 100 95 Oximetry Chest Pain MDM - MDM Was pt. sent in by a medical professional or institution (, PA, [employer]ER, urgent care, hospital, or senior living...) When possible be specific @ -No Did you speak to anyone other than the patient for history (EMS, parent, family, police, friend...)? What history was obtained from this source @ -No Did you review nursing and triage notes (agree or disagree)? Why? @ -I reviewed and agree with nursing and triage notes Were old charts reviewed (outside hosp., previous admission, EMS record, old EKG, old radiological studies, urgent care reports/EKG's, senior living records)? Report findings @ -No old charts were reviewed Differential Diagnosis (chest pain, altered mental status, abdominal pain women, abdominal pain men, vaginal bleeding, weakness, fever, dyspnea, syncope, headache, dizziness, GI bleed, back pain, seizure, CVA, palpatations, mental health, musculoskeletal)? @ -Differential Chest Pain: Stable Angina, Unstable Angina, STEMI, NSTEMI Aortic Dissection, Pneumothorax, Musculoskeletal, Esophageal Spasm GERD, Cholecystitis, Pancreatitis, Zoster, this is not meant to be an all-inclusive list. EKG interpreted by me (3pts min.). @ -EKG shows a sinus tachycardia with a short ID interval at 114 ms rate at 124 BPM. QRS 167, QT/QTc 358/432 X-rays interpreted by me (1pt min.). @ -None done CT interpreted by me (1pt min.). @ -None done U/S interpreted by me (1pt. min.). @ -None done What testing was considered but not performed or refused? (CT, X-rays, U/S, labs)? Why? @ -None What meds were considered but not given or refused? Why? @ -None Did you discuss the management of the patient with other professionals (professionals i.e. , PA, [employer]ER, lab, RT, psych nurse, social services manager, latcher, teacher, aviation tactical readiness officer, medical case worker)? Give summary @ -Case discussed with Dr. Mosqueda, who accepts admission Was smoking cessation discussed for >3mins.? @ -No Was critical care preformed (if so, how long)? @ -No Were there social determinants of health that impacted care today? How? (Homelessness, low income, unemployed, alcoholism, drug addiction, transportation, low edu. Level, literacy, decrease access to med. care, mcc, rehab)? @ -No Was there de-escalation of care discussed even if they declined (Discuss DNR or withdrawal of care, Hospice)? DNR status @ -No What co-morbidities impacted this encounter? (DM, HTN, Smoking, COPD, CAD, Cancer, CVA, ARF, Chemo, Hep., AIDS, mental health diagnosis, sleep apnea, morbid obesity)? @ -CAD Was patient admitted / discharged? Hospital course, mention meds given and route, prescriptions, significant lab abnormalities, going to OR and other pertinent info. @ -Admission 58-year-old female presenting to the ED with complaints of myalgias, arthralgias, generalized fatigue, and nausea. Also does note some chest pain and reports feeling as if she cannot take a deep breath. Laboratory studies reviewed. CBC unremarkable. Coagulation panel shows patient subtherapeutic with an INR of 1.8. Chemistry panel unremarkable. Initial troponin here less than 0.012. Serology panel negative. CT of the chest was performed as patient reported that she felt as if she could not take a deep breath in and it also notes some chest pain with a subtherapeutic INR. This revealed no evidence of PE. She didn't is typically paced however today does note some chest pain and EKG here today shows a sinus tachycardia t 124 BPM. With ECG changes and chest pain be admitted to observation with consult to cardiology. Undiagnosed new problem with uncertain prognosis? @ -No Drug Therapy requiring intensive monitoring for toxicity (Heparin, Nitro, Insulin, Cardizem)? @ -No Were any procedures done? @ -No Diagnosis/symptom? @ -Arthralgias/myalgias, chest pain, EKG changes Acute, or Chronic, or Acute on Chronic? @ -Acute Uncomplicated (without systemic symptoms) or Complicated (systemic symptoms)? @ -Complicated Side effects of treatment? @ -No Exacerbation, Progression, or Severe Exacerbation? @ -No Poses a threat to life or bodily function? How? (Chest pain, [place], [place], pneumonia, PE, COPD, DKA, ARF, appy, cholecystitis, CVA, Diverticulitis, Homicidal, [place] icidal, threat to staff... and all critical care pts) @ -Possibly Disposition Clinical Impression: Arthralgia, Myalgia, Chest pain Disposition: ADMITTED IP TO THIS HOSP Condition: Good Referrals: Daniel Mosqueda MD [Primary Care Provider] - 1-2 days Time of Disposition: 00:00
--- NOTE | 2023-08-25 21:09 | XR ---
EXAMINATION TYPE: XR chest 2V DATE OF EXAM: 08/25/2023 9:02 PM CLINICAL INDICATION:Female, 58 years old with history of Chest Pain; COMPARISON: Chest radiographs from 08/22/2023 TECHNIQUE: XR chest 2V Frontal and lateral views of the chest. FINDINGS: Lungs/Pleura: There is flattening of the diaphragm with increased lucency of the lungs. No evidence o f pneumothorax, pleural effusion or focal consolidation. Pulmonary vascularity: Unremarkable. Heart/mediastinum: Cardiomediastinal silhouette is unremarkable. Three lead cardiac conduction device overlying the left hemithorax with lead tips projecting over the right ventricle, right atrium and c oronary sinus. Musculoskeletal: No acute osseous pathology. IMPRESSION: 1. No acute cardiopulmonary disease process. 2. COPD changes.
[2023-08-25] MEDS: KETOROLAC 15 MG/ML 1 ML VIAL IVP STA (22:55)
[2023-08-25] MEDS: LORazepam 2 MG/ML INJ IV STA (23:43)
--- NOTE | 2023-08-25 23:48 | CT ---
EXAM: CT Angiography Chest With Intravenous Contrast CLINICAL HISTORY: ITS.REASON CT Reason: r/o pe TECHNIQUE: Axial computed tomographic angiography images of the chest with intravenous contrast. CTDI is 58 mGy and DLP is 952.6 mGy-cm. This CT exam was performed using one or more of the following dose reduction techniques: automated exposure control, adjustment of the mA and/or kV according to patient size, and/or use of iterative reconstruction technique. MIP reconstructed images were created and reviewed. COMPARISON: No relevant prior studies available. FINDINGS: Pulmonary arteries: No pulmonary embolism. Aorta: Normal caliber aorta. No dissection. Lungs: Moderate emphysematous changes. No consolidation or interstitial edema. Atelectasis within the middle lobe, lingula, and right lower lobe. Pleural space: Unremarkable. Heart: Unremarkable. Bones/joints: No acute fracture. Soft tissues: Unremarkable. Lymph nodes: Unremarkable. IMPRESSION: 1. No pulmonary embolism. 2. Moderate emphysematous changes.
[2023-08-26] MEDS ORDERED: NITROGLYCERIN SL TABS 0.4 MG TAB SUBLINGUAL PRN (01:04)
[2023-08-26] MEDS: SODIUM CHLORIDE 0.9% 1,000 ML IV SCH (01:10)
[2023-08-26] MEDS: LORazepam 2 MG/ML INJ IM PRN (03:16)
[2023-08-26 03:26] VITALS: TEMP 97.7
[2023-08-26 08:21] VITALS: BP 145/91; PULSE 95; RESP 20
--- NOTE | 2023-08-26 09:27 | P.CRDCN ---
History of Present Illness Consult date: 08/26/23 Consult reason: chest pain History of present illness: History of present illness: This is a 58-year-old female patient of Dr. Reece with past medical history of nonischemic cardiomyopathy status post AICD, prior pulmonary embolism on warfarin therapy, hypertension, COPD. We have been asked to evaluate the patient for chest pain. Patient was recently hospitalized and seen by cardiology on 08/22-08/23 at which time she was diagnosed with atypical chest pain and acute coronary syndrome was ruled out. Patient states that she developed shoulder pain migraine headache and wheezing with a little fever and nausea without vomiting. No significant cough. She states she quit smoking a number of years ago but is exposed to secondhand smoke. Patient also states she had some chest pressure when she took a deep breath. She is complaining mostly of back pain. EKG ventricularly paced rhythm Chest x-ray: No acute process. COPD changes. CTA of the chest revealed no pulmonary embolism. Moderate emphysematous change. CBC is unremarkable. INR 1.8. Sodium 140, potassium 3.7, creatinine 0.79. Troponin negative x 3 draws. Liver function test are normal. Magnesium 1.8. Influenza A, influenza B, RSV, COVID-19 not detected. Home cardiac medications: Amiodarone 100 mg daily, atorvastatin 10 mg at bedtime, Coreg 6.25 mg twice daily, lisinopril 2.5 mg daily, Aldactone 25 mg evening, warfarin 5 mg evening. Echocardiogram performed 08/23/2023 revealed technically difficult study. Moderate global hypokinesis with no clear segmental wall motion abnormality. Mild mitral regurgitation. EF 40 to 45%. Review Of Systems: At the time of my exam: CONSTITUTIONAL: Denies fever or chills. HEENT: Denies blurred vision, vision changes, or eye pain. Denies hemoptysis CARDIOVASCULAR: Denies chest pain. Denies orthopnea. Denies PND. Denies pal pitations RESPIRATORY: Denies shortness of breath. Reports cough. Reports back pain. Reports wheezing GASTROINTESTINAL: Denies abdominal pain. Denies nausea or vomiting. HEMATOLOGIC: Denies bleeding disorders. GENITOURINARY: Denies any blood in urine. SKIN: Denies pruitis. Denies rash. Physical examination: Gen: This is a 58-year-old female, no acute distress VS: reviewed HEENT: Head is atraumatic, normocephalic. Pupils equal, round. Sclerae is anicteric. NECK: Supple. No JVD. LUNGS: Bilateral scattered wheezing. No intercostal retractions. HEART: Regular rate and rhythm. No murmur. No tenderness to chest wall. No tenderness over AICD. ABDOMEN: Soft No tenderness. EXTREMITIES: No pedal edema. No calf tenderness. NEUROLOGICAL: Patient is awake, alert and oriented x3. Assessment: Atypical chest pain, acute coronary syndrome ruled out Wheezing possible COPD exacerbation Nonischemic cardiomyopathy Status post AICD Severe RV dilatation Prior history of PE on Coumadin Plan: Continue patient's home cardiac medications No need to repeat echocardiogram Patient is cleared from cardiology for discharge. No further cardiac workup warranted at this time. Cardiology will sign off this case and follow on an as-needed basis. Please reconsult for any new concerns. Patient may follow-up in the office in one to 2 weeks. Thank you kindly for this consultation. Nurse practitioner note has been reviewed, I agree with documented findings and plan of care. Patient was seen and examined. Past Medical History Past Medical History: Chest Pain / Angina, COPD, Hyperlipidemia, Hypertension, Myocardial Infarction ([place]), Pneumonia, Pulmonary Embolus (PE) Additional Past Medical History / Comment(s): cardiomyopathy, PE (6yrs ago), brain aneursym [place] Last Myocardial Infarction Date:: 5 yrs ago History of Any Multi-Drug Resistant Organisms: None Reported Past Surgical History: AICD, Cholecystectomy, Heart Catheterization Additional Past Surgical History / Comment(s): AICD defibrillator placed 6 years ago, Right perforated eardrum Past Anesthesia/Blood Transfusion Reactions: No Reported Reaction Type of Cardiac Device: AICD Device Placement Date:: 2015 Past Psychological History: Anxiety, Depression Smoking Status: Former smoker Past Alcohol Use History: None Reported Past Drug Use History: None Reported - Past Family History Mother Family Medical History: Diabetes Mellitus, Hypertension Father Family Medical History: No Reported History Medications and Allergies Home Medications Medication Instructions Recorded Confirmed Type Spironolactone [Aldactone] 25 mg PO HS@1700 08/15/20 08/25/23 History Amiodarone [Cordarone] 100 mg PO DAILY@0700 06/20/21 08/25/23 History Atorvastatin [Lipitor] 10 mg PO HS@1700 06/20/21 08/25/23 History Multivitamins, Thera [Multivitamin 1 tab PO DAILY@0700 09/05/22 08/25/23 History (formulary)] Warfarin [Coumadin] 5 mg PO HS@1700 03/09/23 08/25/23 History Ibuprofen [Motrin Ib] 200 - 800 mg PO Q8H PRN 05/08/23 08/25/23 History [place]-3/Dha/Epa/Fish Oil [Fish Oil 1 cap PO DAILY@0700 05/08/23 08/25/23 History 1,000 mg Softgel] carvediloL [Coreg] 6.25 mg PO BID@0700,1700 05/08/23 08/25/23 History lisinopriL [Zestril] 2.5 mg PO DAILY@0700 05/08/23 08/25/23 History ALPRAZolam [Xanax] 0.25 mg PO TID PRN #30 tab 05/10/23 08/25/23 Rx Acetaminophen Tab [Tylenol Tab] 1,000 mg PO Q6HR PRN 08/25/23 08/25/23 History Allergies Allergy/AdvReac Type Severity Reaction Status Date / Time hydromorphone [From Dilaudid] AdvReac Nausea & Verified 08/25/23 22:56 Vomiting Physical Exam Vitals: Vital Signs Temp Pulse Pulse Resp BP BP Pulse Ox 08/26/23 02:40 97.7 F 100 16 145/82 94 L 08/26/23 01:00 101 H 18 108/86 95 08/26/23 00:00 104 H 18 133/83 96 08/25/23 23:47 102 H 20 150/95 95 08/25/23 22:37 107 H 20 150/112 100 08/25/23 18:59 97.8 F 120 H 20 148/88 98 Intake and Output 08/25/23 08/26/23 08/26/23 22:59 06:59 14:59 Other: # Voids 1 Weight 104.326 kg 104.326 kg Results 08/25/23 19:03 08/25/23 19:22 Cardiac Enzymes 08/25/23 08/25/23 08/26/23 Range/Units 19:22 19:22 01:18 AST 33 (14-36) U/L Troponin I <0.012 <0.012 (0.000-0.034) ng/mL 08/26/23 Range/Units 05:24 AST (14-36) U/L Troponin I <0.012 (0.000-0.034) ng/mL Coagulation 08/25/23 Range/Units 19:22 PT 17.9 H (10.0-12.5) sec APTT 26.5 (22.0-30.0) sec CBC 08/25/23 Range/Units 19:03 WBC 7.0 (3.8-10.6) k/uL RBC 4.81 (3.80-5.40) m/uL Hgb 13.9 (11.4-16.0) gm/dL Hct 40.7 (34.0-46.0) % Plt Count 156 (150-450) k/uL Comprehensive Metabolic Panel 08/25/23 Range/Units 19:22 Sodium 140 (137-145) mmol/L Potassium 3.7 (3.5-5.1) mmol/L Chloride 107 (98-107) mmol/L Carbon Dioxide 25 (22-30) mmol/L BUN 12 (7-17) mg/dL Creatinine 0.79 (0.52-1.04) mg/dL Glucose 97 (74-99) mg/dL Calcium 10.0 (8.4-10.2) mg/dL AST 33 (14-36) U/L ALT 28 (4-34) U/L Alkaline Phosphatase 108 (38-126) U/L Total Protein 7.4 (6.3-8.2) g/dL Albumin 4.6 (3.5-5.0) g/dL Current Medications Generic Name Dose Route Start Last Admin Trade Name Freq PRN Reason Stop Dose Admin Aspirin 325 mg 08/27/23 09:00 Aspirin 325 Mg Tab PO DAILY DUNCAN Sodium Chloride 1,000 mls @ 70 mls/hr 08/26/23 01:15 08/26/23 01:10 Saline 0.9% IV 70 mls/hr .[id number] DUNCAN Administration Lorazepam 0.5 mg 08/26/23 01:17 08/26/23 03:16 Lorazepam 2 Mg/Ml Inj IM 0.5 mg ONCE PRN Administration Anxiety Nitroglycerin 0.4 mg 08/26/23 01:04 Nitroglycerin Sl Tabs 0.4 Mg Tab SUBLINGUAL Q5M PRN Chest Pain Intake and Output 08/25/23 08/26/23 08/26/23 22:59 06:59 14:59 Other: # Voids 1 Weight 104.326 kg 104.326 kg 08/25/23 19:03 08/25/23 19:22
[2023-08-27] MEDS ORDERED: ASPIRIN 325 MG TAB PO SCH (09:00)
--- NOTE | 2023-08-30 00:49 | DS ---
DISCHARGE SUMMARY CHIEF COMPLAINT: Chest pain, back pain, and headache. HISTORY OF PRESENT ILLNESS AND PHYSICAL EXAMINATION: Details of this lady's history and physical can be found in the initial workup. LABORATORY STUDIES: While she is in the hospital, she had laboratory studies, details of which can be found in the laboratory section of her chart. COURSE IN THE HOSPITAL: After admission, she was placed on bedrest and started on intravenous fluids . It turns out she had multiple complaints of pain just about everywhere, which was determined it was related to anxiety. It was felt that she would go home on the 8th on her usual activities and that she will be followed up in the office. FINAL DIAGNOSES: 1. Chest pain, back pain, and headache. 2. Anxiety/depression. OPERATIONS: None. CONSULTATIONS: None. She is improved. MMODL / IJN: [id number] /
--- NOTE | 2023-08-30 01:45 | HP ---
HISTORY AND PHYSICAL CHIEF COMPLAINT: Chest pain, back pain and headache. HISTORY OF PRESENT ILLNESS: Another recent admission for this 58-year-old white female who has had numerous problems in the past including coronary artery disease, atrial fibrillation, pulmonary embolism and a CVA. She was in the hospital recently for atypical chest pain, was cleared, went home. She is now back in with multiple complaints including chest pain, back pain, posterior chest pain, headache, etc. Studies in the emergency room were normal. REVIEW OF SYSTEMS: She is not coughing up any blood. She has had no fever, no chills, no diaphoresis, melena, hematochezia, jaundice, urinary complaints, etc. PAST MEDICAL HISTORY,: Otherwise unremarkable, noncontributory and unchanged from her recent admitting and discharge summary. FAMILY HISTORY: Otherwise unremarkable, noncontributory and unchanged from her recent admitting and discharge summary. PERSONAL AND SOCIAL HISTORIES: Otherwise unremarkable, noncontributory and unchanged from her recent admitting and discharge summary. She is extremely anxious. PHYSICAL EXAMINATION: VITAL SIGNS: Normal. HEAD, EARS, EYES, NOSE, MOUTH AND THROAT: Normal. CHEST: Clear. CARDIAC: Demonstrates sinus tachycardia. ABDOMEN: The abdomen is soft and nontender. EXTREMITIES: Normal. NEUROLOGIC: Neurologically she is intact. DIAGNOSES: She is admitted to the hospital with diagnoses of, 1. Chest pain. 2. Dorsal spine pain. 3. Low back pain. 4. Headache. 5. Anxiety. PLAN: 1. Bed rest. 2. IV fluids. 3. Cardiac enzymes. 4. Monitor vital signs and arrhythmia. In talking to her, this is likely due to a very stressful situation that she is in. For some reason, she recently assumed the care of 33-year-old relative with advanced rheumatoid arthritis. She is nonambulatory. This is likely the source of her difficulty. MMODL / IJN: [id number] /
== END 2023-08-26 12:49 | disposition home or self-care (01) ==
LOC: EC 18:53 → 6NMEDSUR 08-26 01:04
PROVIDERS: ADMIT Family Medicine; ATTEND Family Medicine
DX: R07.89 Other chest pain (principal); G43.909 Migraine, unspecified, not intractable, without status migrainosus; J44.9 Chronic obstructive pulmonary disease, unspecified; I34.0 Nonrheumatic mitral (valve) insufficiency; I48.91 Unspecified atrial fibrillation; I42.8 Other cardiomyopathies; I25.10 Atherosclerotic heart disease of native coronary artery without angina pectoris; I10 Essential (primary) hypertension; M79.10 Myalgia, unspecified site; M54.6 Pain in thoracic spine; M54.50 Low back pain, unspecified; M25.519 Pain in unspecified shoulder; E78.5 Hyperlipidemia, unspecified; I25.2 Old myocardial infarction; R00.0 Tachycardia, unspecified; F32.A Depression, unspecified; F41.9 Anxiety disorder, unspecified; Z77.22 Contact with and (suspected) exposure to environmental tobacco smoke (acute) (chronic); Z11.52 Encounter for screening for COVID-19; Z11.59 Encounter for screening for other viral diseases; Z79.01 Long term (current) use of anticoagulants; Z79.899 Other long term (current) drug therapy; Z88.5 Allergy status to narcotic agent; Z86.711 Personal history of pulmonary embolism; Z95.810 Presence of automatic (implantable) cardiac defibrillator; Z95.5 Presence of coronary angioplasty implant and graft; Z87.891 Personal history of nicotine dependence; Z86.73 Personal history of transient ischemic attack (TIA), and cerebral infarction without residual deficits; Z86.79 Personal history of other diseases of the circulatory system
CPT/HCPCS: 96372; 96361; 96374; 96375; 99285; 36415; 94760; 93005; 80053; 83735; 84484 ×2; 85025; 85610; 85730; 87636; 71046; 71275; G0378; J2060 ×2; J1885; Q9967

== ENCOUNTER 2023-10-05 17:51 | Emergency (ER) | payer MEDICARE ==
--- NOTE | 2023-10-05 18:20 | ED ---
Neck Injury/Pain HPI - General Source: patient, RN notes reviewed Mode of arrival: ambulatory Limitations: no limitations <Ira Partida - Last Filed: 10/05/23 18:19> <Yuri Olivo - Last Filed: 10/05/23 23:22> - General Stated Complaint: Back/Neck Pain Time Seen by Provider: 10/05/23 18:19 - History of Present Illness Initial Comments: Quick note: Patient is a 58-year-old female presented to the ER with a chief complaint of neck and bilateral leg pain. Patient seen at urgent care and sent here to rule out blood clot. Patient does report shortness of breath but does have a history of COPD. She describes a pressure sensation on her ribs. She is currently taking warfarin. Denies any chest pain. (Ira Partida) 8-year-old female presenting to the ED with a chief complaint of myalgias. Patient states approximately 3 to 4 days ago started to experience pain of her upper back and since then has migrated up to her neck. Patient also does note some associated rhinorrhea and cough. Patient also does note some shortness of breath. No fever or chills. Patient denies leg pain. No leg swelling. Misti munoz is on warfarin. Reports last Wednesday was found to be supratherapeutic with an INR of 4. Denies chest pain. Was seen at [facility] urgent care prior to this and was sent to this facility to rule out a blood clot. Denies saddle anesthesia or incontinence. No other complaints at this time. (Yuri Olivo) - Related Data Home Medications Medication Instructions Recorded Confirmed Spironolactone [Aldactone] 25 mg PO HS@1700 08/15/20 10/05/23 Amiodarone [Cordarone] 100 mg PO DAILY@0700 06/20/21 10/05/23 Multivitamins, Thera [Multivitamin 1 tab PO DAILY@0700 09/05/22 10/05/23 (formulary)] Ibuprofen [Motrin Ib] 200 - 800 mg PO Q8H PRN 05/08/23 10/05/23 [place]-3/Dha/Epa/Fish Oil [Fish Oil 1 cap PO DAILY@0700 05/08/23 10/05/23 1,000 mg Softgel] carvediloL [Coreg] 6.25 mg PO BID@0700,1700 05/08/23 10/05/23 lisinopriL [Zestril] 2.5 mg PO DAILY@0700 05/08/23 10/05/23 Acetaminophen Tab [Tylenol] 1,000 mg PO Q6HR PRN 08/25/23 10/05/23 Warfarin Sodium 6 mg PO HS@1700 10/05/23 10/05/23 Warfarin [Coumadin] 2 mg PO HS@1700 10/05/23 10/05/23 Previous Rx's Medication Instructions Recorded ALPRAZolam [Xanax] 0.25 mg PO TID PRN #30 tab 05/10/23 Allergies Allergy/AdvReac Type Severity Reaction Status Date / Time hydromorphone [From Dilaudid] AdvReac Nausea & Verified 10/05/23 18:21 Vomiting Review of Systems ROS Other: All systems not noted in ROS Statement are negative. <Ira Partida - Last Filed: 10/05/23 18:19> ROS Other: All systems not noted in ROS Statement are negative. <Yuri Olivo - Last Filed: 10/05/23 23:22> ROS Statement: Those systems with pertinent positive or pertinent negative responses have been documented in the HPI. Past Medical History Past Medical History: Chest Pain / Angina, COPD, Hyperlipidemia, Hypertension, Myocardial Infarction ([place]), Pneumonia, Pulmonary Embolus (PE) Additional Past Medical History / Comment(s): cardiomyopathy, PE (6yrs ago), brain aneursym [place] Last Myocardial Infarction Date:: 5 yrs ago History of Any Multi-Drug Resistant Organisms: None Reported Past Surgical History: AICD, Cholecystectomy, Heart Catheterization Additional Past Surgical History / Comment(s): AICD defibrillator placed 6 years ago, Right perforated eardrum Past Anesthesia/Blood Transfusion Reactions: No Reported Reaction Type of Cardiac Device: AICD Device Placement Date:: 2015 Past Psychological History: Anxiety, Depression Smoking Status: Former smoker Past Alcohol Use History: None Reported Past Drug Use History: None Reported - Past Family History Mother Family Medical History: Diabetes Mellitus, Hypertension Father Family Medical History: No Reported History <Ira Partida - Last Filed: 10/05/23 18:19> General Exam <Ira Partida - Last Filed: 10/05/23 18:19> General appearance: alert, in no apparent distress Eye exam: Present: normal appearance Neck exam: Present: normal inspection Respiratory exam: Present: normal lung sounds bilaterally. Absent: respiratory distress, accessory muscle use Cardiovascular Exam: Present: regular rate GI/Abdominal exam: Present: soft Extremities exam: Present: other (No pitting edema bilateral lower extremities. DP/PT pulses palpable.) Back exam: Present: other (No midline spinal tenderness to palpation.) Neurological exam: Present: alert, oriented X3 Skin exam: Present: warm, dry <Yuri Olivo - Last Filed: 10/05/23 23:22> - General Exam Comments Initial Comments: Visual Physical Exam Vital signs reviewed General: Well-appearing, nontoxic, no acute distress. Head: Normocephalic, atraumatic Eyes: PERRLA, EOMI ENT: Airway patent Chest: Nonlabored breathing Skin: No visual rash, normal skin tone Neuro: Alert and oriented 3 Musculoskeletal: No gross abnormalities (Ira Partida) Course Vital Signs 10/05/23 18:18 Temperature 98.5 F Pulse Rate 110 H Respiratory 18 Rate Blood Pressure 177/91 O2 Sat by Pulse 96 Oximetry Medical Decision Making <Ira Partida - Last Filed: 10/05/23 18:19> - Lab Data Result diagrams: 10/05/23 18:10 10/05/23 18:10 <Yuri Olivo - Last Filed: 10/05/23 23:22> - Medical Decision Making I performed the quick note portion of this chart. Electronically signed by Ira Partida PA-C (Ira Partida) Was pt. sent in by a medical professional or institution (STUART Alarcon, SENIOR JAVA DEVELOPER, urgent care, hospital, or chcf...) When possible be specific @ -[facility] urgent care. Did you speak to anyone other than the patient for history (EMS, parent, family, police, friend...)? What history was obtained from this source @ -No Did you review nursing and triage notes (agree or disagree)? Why? @ -I reviewed and agree with nursing and triage notes Were old charts reviewed (outside hosp., previous admission, EMS record, old EKG, old radiological studies, urgent care reports/EKG's, ch[facility] records)? Report findings @ -No old charts were reviewed Differential Diagnosis (chest pain, altered mental status, abdominal pain women, abdominal pain men, vaginal bleeding, weakness, fever, dyspnea, syncope, headache, dizziness, GI bleed, back pain, seizure, CVA, palpatations, mental health, musculoskeletal)? @ -Differential Dyspnea: Coronary syndrome, arrhythmia, tamponade, asthma, COPD, pulmonary embolism, pneumonia, pneumothorax, pulmonary effusion, anaphylaxis, diabetic ketoacidosis, flailed chest, pulmonary contusion, diaphragmatic rupture, anemia, neuromus cular, this is not meant to be an all-inclusive list. EKG interpreted by me (3pts min.). @ -EKG interpreted by me which showed a paced rhythm at 98 bpm. MN 122, QRS 170, QT/QTc 421/476. X-rays interpreted by me (1pt min.). @ -Chest x-ray interpreted me which revealed no evidence of acute process. CT interpreted by me (1pt min.). @ -None done U/S interpreted by me (1pt. min.). @ -None done What testing was considered but not performed or refused? (CT, X-rays, U/S, labs)? Why? @ -None What meds were considered but not given or refused? Why? @ -None Did you discuss the management of the patient with other professionals (jonatan wick i.eAlcides Alarcon, PA, SENIOR JAVA DEVELOPER, lab, RT, psych nurse, high school social science teacher, data input clerk, teacher, toxics program officer, case finisher)? Give summary @ -No Was smoking cessation discussed for >3mins.? @ -No Was critical care preformed (if so, how long)? @ -No Were there social determinants of health that impacted care today? How? (Homelessness, low income, unemployed, alcoholism, drug addiction, transportation, low edu. Level, literacy, decrease access to med. care, prison, rehab)? @ -No Was there de-escalation of care discussed even if they declined (Discuss DNR or withdrawal of care, Hospice)? DNR status @ -No What co-morbidities impacted this encounter? (DM, HTN, Smoking, COPD, CAD, Cancer, CVA, ARF, Chemo, Hep., AIDS, mental health diagnosis, sleep apnea, morbid obesity)? @ -None Was patient admitted / discharged? Hospital course, mention meds given and route, prescriptions, significant lab abnormalities, going to OR and other pertinent info. @ -Discharge 58-year-old female presenting to the ED with myalgias and shortness of breath sent by urgent care to rule out blood clot. Also did note some associated rhinorrhea and cough. Laboratory studies reviewed. CBC largely unremarkable. Chemistry panel largely unremarkable. D-dimer 0.30. Chest x-ray revealed no evidence of acute process. Patient provided Toradol and Tylenol here in the ED with improvement of symptoms. Symptoms likely viral in nature. Discharged home in stable condition. Discussed return precautions with patient who verbalized agreement. Undiagnosed new problem with uncertain prognosis? @ -No Drug Therapy requiring intensive monitoring for toxicity (Heparin, Nitro, Insulin, Cardizem)? @ -No Were any procedures done? @ -No Diagnosis/symptom? @ -Myalgias, viral URI. Acute, or Chronic, or Acute on Chronic? @ -Acute Uncomplicated (without systemic symptoms) or Complicated (systemic symptoms)? @ -Uncomplicated Side effects of treatment? @ -No Exacerbation, Progression, or Severe Exacerbation? @ -No Poses a threat to life or bodily function? How? (Chest pain, [place], [place], pneumonia, PE, COPD, DKA, ARF, appy, cholecystitis, CVA, Diverticulitis, Homicidal, Suicidal, threat to staff... and all critical care pts) @ -No (Yuri Olivo) - Lab Data Lab Results 10/05/23 10/05/23 10/05/23 Range/Units 18:10 18:10 18:10 WBC 6.3 (3.8-10.6) k/uL RBC 4.91 (3.80-5.40) m/uL Hgb 14.1 (11.4-16.0) gm/dL Hct 40.7 (34.0-46.0) % MCV 82.9 (80.0-100.0) fL MCH 28.6 (25.0-35.0) pg MCHC 34.5 (31.0-37.0) g/dL RDW 15.4 (11.5-15.5) % Plt Count 198 (150-450) k/uL MPV 9.7 Neutrophils % 64 % Lymphocytes % 25 % Monocytes % 6 % Eosinophils % 4 % Basophils % 1 % Neutrophils # 4.0 (1.3-7.7) k/uL Lymphocytes # 1.6 (1.0-4.8) k/uL Monocytes # 0.4 (0-1.0) k/uL Eosinophils # 0.2 (0-0.7) k/uL Basophils # 0.0 (0-0.2) k/uL Poikilocytosis Slight PT 32.3 H (10.0-12.5) sec INR 3.3 H (<1.2) APTT 36.7 H (22.0-30.0) sec D-Dimer 0.30 (<0.60) mg/L FEU Sodium 142 (137-145) mmol/L Potassium 3.6 (3.5-5.1) mmol/L Chloride 106 (98-107) mmol/L Carbon Dioxide 27 (22-30) mmol/L Anion Gap 9 mmol/L BUN 11 (7-17) mg/dL Creatinine 0.77 (0.52-1.04) mg/dL Est GFR (CKD-EPI)AfAm >90 (>60 ml/min/1.73 sqM) Est GFR (CKD-EPI)NonAf 85 (>60 ml/min/1.73 sqM) Glucose 100 H (74-99) mg/dL Calcium 9.6 (8.4-10.2) mg/dL Magnesium 1.9 (1.6-2.3) mg/dL Total Bilirubin 0.8 (0.2-1.3) mg/dL AST 42 H (14-36) U/L ALT 35 H (4-34) U/L Alkaline Phosphatase 91 (38-126) U/L Troponin I (0.000-0.034) ng/mL Total Protein 7.5 (6.3-8.2) g/dL Albumin 4.5 (3.5-5.0) g/dL Influenza Type A (PCR) (Not Detectd) Influenza Type B (PCR) (Not Detectd) RSV (PCR) (Not Detectd) SARS-CoV-2 (PCR) (Not Detectd) 10/05/23 10/05/23 Range/Units 18:10 21:31 WBC (3.8-10.6) k/uL RBC (3.80-5.40) m/uL Hgb (11.4-16.0) gm/dL Hct (34.0-46.0) % MCV (80.0-100.0) fL MCH (25.0-35.0) pg MCHC (31.0-37.0) g/dL RDW (11.5-15.5) % Plt Count (150-450) k/uL MPV Neutrophils % % Lymphocytes % % Monocytes % % Eosinophils % % Basophils % % Neutrophils # (1.3-7.7) k/uL Lymphocytes # (1.0-4.8) k/uL Monocytes # (0-1.0) k/uL Eosinophils # (0-0.7) k/uL Basophils # (0-0.2) k/uL Poikilocytosis PT (10.0-12.5) sec INR (<1.2) APTT (22.0-30.0) sec D-Dimer (<0.60) mg/L FEU Sodium (137-145) mmol/L Potassium (3.5-5.1) mmol/L Chloride (98-107) mmol/L Carbon Dioxide (22-30) mmol/L Anion Gap mmol/L BUN (7-17) mg/dL Creatinine (0.52-1.04) mg/dL Est GFR (CKD-EPI)AfAm (>60 ml/min/1.73 sqM) Est GFR (CKD-EPI)NonAf (>60 ml/min/1.73 sqM) Glucose (74-99) mg/dL Calcium (8.4-10.2) mg/dL Magnesium (1.6-2.3) mg/dL Total Bilirubin (0.2-1.3) mg/dL AST (14-36) U/L ALT (4-34) U/L Alkaline Phosphatase (38-126) U/L Troponin I <0.012 (0.000-0.034) ng/mL Total Protein (6.3-8.2) g/dL Albumin (3.5-5.0) g/dL Influenza Type A (PCR) Not Detected (Not Detectd) Influenza Type B (PCR) Not Detected (Not Detectd) RSV (PCR) Not Detected (Not Detectd) SARS-CoV-2 (PCR) Not Detected (Not Detectd) Disposition <Ira Partida - Last Filed: 10/05/23 18:19> Is patient prescribed a controlled substance at d/c from ED?: No Time of Disposition: 23:00 <Yuri Olivo - Last Filed: 10/05/23 23:22> Clinical Impression: Myalgia, Shortness of breath, Viral URI Disposition: HOME SELF-CARE Condition: Good Additional Instructions: Please return to the Emergency Department if symptoms worsen or any other concerns. Please follow-up with your primary care provider. Referrals: Daniel Mosqueda MD [Primary Care Provider] - 1-2 days
[2023-10-05 18:45] VITALS: RESP 18
[2023-10-05 18:56] LABS: Basophils % (A) 1 %; Eosinophils # (A) 0.2 k/uL (0-0.7); Eosinophils % (A) 4 %; HCT 40.7 % (34.0-46.0); HGB 14.1 gm/dL (11.4-16.0); Lymphocytes # (A) 1.6 k/uL (1.0-4.8); Lymphocytes % (A) 25 %; MCH 28.6 pg (25.0-35.0); MCHC 34.5 g/dL (31.0-37.0); MCV 82.9 fL (80.0-100.0); Mean Platelet Volume 9.7; Monocytes # (A) 0.4 k/uL (0-1.0); Monocytes % (A) 6 %; Neutrophils % (A) 64 %; Platelet Count 198 k/uL (150-450); Poikilocytosis Slight; RBC 4.91 m/uL (3.80-5.40); RDW 15.4 % (11.5-15.5); WBC 6.3 k/uL (3.8-10.6)
[2023-10-05 19:02] LABS: ALT 35 U/L (4-34); AST 42 U/L (14-36); African American GFR (CKD) >90 (>60 ml/min/1.73 sqM); Albumin 4.5 g/dL (3.5-5.0); Alkaline Phosphatase 91 U/L (38-126); Anion Gap 9 mmol/L; Blood Urea Nitrogen 11 mg/dL (7-17); Calcium 9.6 mg/dL (8.4-10.2); Carbon Dioxide 27 mmol/L (22-30); Chloride 106 mmol/L (98-107); Glucose 100 mg/dL (74-99); Magnesium 1.9 mg/dL (1.6-2.3); Non-African American GFR(CKD) 85 (>60 ml/min/1.73 sqM); Potassium 3.6 mmol/L (3.5-5.1); Sodium 142 mmol/L (137-145); Total Bilirubin 0.8 mg/dL (0.2-1.3); Total Protein 7.5 g/dL (6.3-8.2)
[2023-10-05 19:15] LABS: INR 3.3 (<1.2); Partial Thromboplastin Time 36.7 sec (22.0-30.0); Prothrombin Time 32.3 sec (10.0-12.5)
[2023-10-05] MEDS: ACETAMINOPHEN TAB 500 MG TAB PO STA (21:26)
[2023-10-05] MEDS: KETOROLAC 15 MG/ML 1 ML VIAL IM STA (21:27)
--- NOTE | 2023-10-05 22:46 | XR ---
EXAMINATION TYPE: XR chest 2V DATE OF EXAM: 10/05/2023 9:04 PM CLINICAL INDICATION:Female, 58 years old with history of r/o pna; [facility] COMPARISON: Two-view chest and a CTA chest 08/25/2023 TECHNIQUE: XR chest 2V. Frontal and lateral views of the chest.. FINDINGS: Lines/Tubes/Devices: No indwelling lines are seen. Three lead cardiac conduction device overlying the left hemithorax with lead tips projecting over the right ventricle, right atrium and coronary sinus. Extrinsic structures are also present. Heart/mediastinum: Heart appears moderately enlarged, especially the right atrium. Mediastinum appea rs normal. Pulmonary vascularity: Not increased, Lungs/Pleura: Hazy opacity over the lung bases on the frontal view likely from overlying soft tissue attenuation. No definite airspace consolidation, sizable pleural effusion, or pneumothorax visualized . Hyperinflated lungs with coarsened interstitial lung markings, likely chronic changes from emphysem a/COPD. Musculoskeletal: No acute osseous abnormality demonstrated in the limits of the exam. Mild degenerat tra changes are seen. Other findings: None. IMPRESSION: 1. Moderate cardiomegaly with left chest 3-lead pacemaker/AICD in place. No evidence of failure. 2. Chronic changes likely related to emphysema/COPD. 3. No focal airspace disease.
[2023-10-05 23:32] VITALS: BP 142/84; PULSE 93; TEMP 98.6
== END 2023-10-05 23:29 | disposition home or self-care (01) ==
LOC: EC 17:51
DX: M79.10 Myalgia, unspecified site (principal); J06.9 Acute upper respiratory infection, unspecified; J44.89 Other specified chronic obstructive pulmonary disease; Z87.891 Personal history of nicotine dependence; Z88.8 Allergy status to other drugs, medicaments and biological substances
CPT/HCPCS: 36415; 93005; 85379; 80053; 83735; 84484; 85025; 85610; 85730; 87636; 71046; 99284; 96372; J1885

== ENCOUNTER 2023-11-15 08:13 | Emergency (ER) | payer MEDICARE ==
[2023-11-15 08:31] VITALS: TEMP 97.8
--- NOTE | 2023-11-15 08:52 | ED ---
Neck Injury/Pain HPI - General Chief Complaint: Neck Pain/Injury Stated Complaint: Neck/Shoulder Pain Time Seen by Provider: 11/15/23 08:31 Source: patient, RN notes reviewed Mode of arrival: ambulatory Limitations: no limitations - History of Present Illness Initial Comments: 58-year-old female presents emergency department chief complaint of left shoul roger, trapezius pain. Patient states this started on Wednesday after she awoke and felt she slept wrong. Patient states that hurts when she leans to the opposite shoulder with her head. Patient states that hurts with movement of the left shoulder denies any paresthesias she states she does have prior pacemaker in which this is worrying her. She states she is followed closely by cardiology. She denies any chest pain or shortness of breath. Patient denies any fevers or chills - Related Data Home Medications Medication Instructions Recorded Confirmed Spironolactone [Aldactone] 25 mg PO HS@1700 08/15/20 10/05/23 Amiodarone [Cordarone] 100 mg PO DAILY@0700 06/20/21 10/05/23 Multivitamins, Thera [Multivitamin 1 tab PO DAILY@0700 09/05/22 10/05/23 (formulary)] Ibuprofen [Motrin Ib] 200 - 800 mg PO Q8H PRN 05/08/23 10/05/23 Ducor-3/Dha/Epa/Fish Oil [Fish Oil 1 cap PO DAILY@0700 05/08/23 10/05/23 1,000 mg Softgel] carvediloL [Coreg] 6.25 mg PO BID@0700,1700 05/08/23 10/05/23 lisinopriL [Zestril] 2.5 mg PO DAILY@0700 05/08/23 10/05/23 Acetaminophen Tab [Tylenol] 1,000 mg PO Q6HR PRN 08/25/23 10/05/23 Warfarin Sodium 6 mg PO HS@1700 10/05/23 10/05/23 Warfarin [Coumadin] 2 mg PO HS@1700 10/05/23 10/05/23 Previous Rx's Medication Instructions Recorded ALPRAZolam [Xanax] 0.25 mg PO TID PRN #30 tab 05/10/23 Cyclobenzaprine [Flexeril] 10 mg PO TID PRN #15 tab 11/15/23 Allergies Allergy/AdvReac Type Severity Reaction Status Date / Time hydromorphone [From Dilaudid] AdvReac Nausea & Verified 11/15/23 08:26 Vomiting Review of Systems ROS Statement: Those systems with pertinent positive or pertinent negative responses have been documented in the HPI. ROS Other: All systems not noted in ROS Statement are negative. Past Medical History Past Medical History: Chest Pain / Angina, COPD, Hyperlipidemia, Hypertension, Myocardial Infarction (LA), Pneumonia, Pulmonary Embolus (PE) Additional Past Medical History / Comment(s): cardiomyopathy, PE (6yrs ago), brain aneursym [place]UNG[place]K Last Myocardial Infarction Date:: 5 yrs ago History of Any Multi-Drug Resistant Organisms: None Reported Past Surgical History: AICD, Cholecystectomy, Heart Catheterization Additional Past Surgical History / Comment(s): AICD defibrillator placed 6 years ago, Right perforated eardrum Past Anesthesia/Blood Transfusion Reactions: No Reported Reaction Type of Cardiac Device: AICD Device Placement Date:: 2015 Past Psychological History: Anxiety, Depression Smoking Status: Former smoker Past Alcohol Use History: None Reported Past Drug Use History: None Reported - Past Family History Mother Family Medical History: Diabetes Mellitus, Hypertension Father Family Medical History: No Reported History General Exam Limitations: no limitations General appearance: alert, in no apparent distress Head exam: Present: atraumatic, normocephalic, normal inspection Eye exam: Present: normal appearance, PERRL, EOMI. Absent: scleral icterus, conjunctival injection, periorbital swelling ENT exam: Present: normal exam, mucous membranes moist Neck exam: Present: normal inspection, tenderness (Left trapezius tenderness, pa racervical), full ROM (Pain with range of motion primarily to the right side). Absent: meningismus, lymphadenopathy Respiratory exam: Present: normal lung sounds bilaterally. Absent: respiratory distress, wheezes, rales, rhonchi, stridor Cardiovascular Exam: Present: regular rate, normal rhythm, normal heart sounds. Absent: systolic murmur, diastolic murmur, rubs, gallop, clicks Extremities exam: Present: normal inspection, full ROM (Discomfort with range of motion left shoulder), tenderness (Left shoulder left trapezius), normal capillary refill. Absent: pedal edema, joint swelling, calf tenderness Neurological exam: Present: alert, oriented X3, CN II-XII intact, reflexes normal. Absent: motor sensory deficit Course Vital Signs 11/15/23 08:25 Temperature 97.8 F Pulse Rate 96 Respiratory 20 Rate Blood Pressure 139/88 O2 Sat by Pulse 96 Oximetry Medical Decision Making - Medical Decision Making Was pt. sent in by a medical professional or institution (, [facility], [facility], urgent care, hospital, or assisted...) When possible be specific @ -No Did you speak to anyone other than the patient for history (EMS, parent, family, police, friend...)? What history was obtained from this source @ -No Did you review nursing and triage notes (agree or disagree)? Why? @ -I reviewed and agree with nursing and triage notes Were old charts reviewed (outside hosp., previous admission, EMS record, old EKG, old radiological studies, urgent care reports/EKG's, assisted records)? Report findings @ -No old charts were reviewed Differential Diagnosis (chest pain, altered mental status, abdominal pain women, abdominal pain men, vaginal bleeding, weakness, fever, dyspnea, syncope, headache, dizziness, GI bleed, back pain, seizure, CVA, palpatations, mental health, musculoskeletal)? @ -Differential Musculoskeletal Muscular strain, contusion, ligament sprain, fracture, arthritis, septic arthritis, bursitis, cellulitis, muscle spasm, nerve compression, DVT, arterial occlusion, herpes zoster, electrolyte abnormality, tumor.... This is not meant to be in all inclusive list EKG interpreted by me (3pts min.). @ -As above X-rays interpreted by me (1pt min.). @ -Chest x-ray shows no acute cardiopulmonary process. CT interpreted by me (1pt min.). @ -None done U/S interpreted by me (1pt. min.). @ -None done What testing was considered but not performed or refused? (CT, X-rays, U/S, labs)? Why? @ -None What meds were considered but not given or refused? Why? @ -None Did you discuss the management of the patient with other professionals (professionals i.e. [facility], [facility], lab, RT, psych nurse, social services specialist, immigration lawyer, teacher, professional security officer, case management coordinator)? Give summary @ -No Was smoking cessation discussed for >3mins.? @ -No Was critical care preformed (if so, how long)? @ -No Were there social determinants of health that impacted care today? How? (Homelessness, low income, unemployed, alcoholism, drug addiction, transportation, low edu. Level, literacy, decrease access to med. care, group home, rehab)? @ -No Was there de-escalation of care discussed even if they declined (Discuss DNR or withdrawal of care, Hospice)? DNR status @ -No What co-morbidities impacted this encounter? (DM, HTN, Smoking, COPD, CAD, Cancer, CVA, ARF, Chemo, Hep., AIDS, mental health diagnosis, sleep apnea, morbid obesity)? @ - CAD Was patient admitted / discharged? Hospital course, mention meds given and route, prescriptions, significant lab abnormalities, going to OR and other pertinent info. @ -Discharge patient provided analgesics which is great improved patient's symptoms. Patient labs, EKG and chest x-ray unremarkable. This is reproducible pain worse with movement. This is noncardiac pain in nature. Patient is discharged in stable condition return parameters were discussed. Patient agrees with plan. Undiagnosed new problem with uncertain prognosis? @ -No Drug Therapy requiring intensive monitoring for toxicity (Heparin, Nitro, Insulin, Cardizem)? @ -No Were any procedures done? @ -No Diagnosis/symptom? @ -Trapezius muscle spasm Acute, or Chronic, or Acute on Chronic? @ -Acute Uncomplicated (without systemic symptoms) or Complicated (systemic symptoms)? @ -Uncomplicated Side effects of treatment? @ -No Exacerbation, Progression, or Severe Exacerbation? @ -No Poses a threat to life or bodily function? How? (Chest pain, USA, LA, pneumonia, PE, COPD, DKA, ARF, appy, cholecystitis, CVA, Diverticulitis, Homicidal, Suicidal, threat to staff... and all critical care pts) @ -No - Lab Data Result diagrams: 11/15/23 09:21 11/15/23 09:20 Lab Results 11/15/23 11/15/23 11/15/23 Range/Units 09:20 09:20 09:20 WBC (3.8-10.6) k/uL RBC (3.80-5.40) m/uL Hgb (11.4-16.0) gm/dL Hct (34.0-46.0) % MCV (80.0-100.0) fL MCH (25.0-35.0) pg MCHC (31.0-37.0) g/dL RDW (11.5-15.5) % Plt Count (150-450) k/uL MPV Neutrophils % % Lymphocytes % % Monocytes % % Eosinophils % % Basophils % % Neutrophils # (1.3-7.7) k/uL Lymphocytes # (1.0-4.8) k/uL Monocytes # (0-1.0) k/uL Eosinophils # (0-0.7) k/uL Basophils # (0-0.2) k/uL Poikilocytosis Anisocytosis PT 27.3 H (10.0-12.5) sec INR 2.8 H (<1.2) APTT 32.2 H (22.0-30.0) sec Sodium 139 (137-145) mmol/L Potassium 4.3 (3.5-5.1) mmol/L Chloride 107 (98-107) mmol/L Carbon Dioxide 22 (22-30) mmol/L Anion Gap 10 mmol/L BUN 16 (7-17) mg/dL Creatinine 0.68 (0.52-1.04) mg/dL Est GFR (CKD-EPI)AfAm >90 (>60 ml/min/1.73 sqM) Est GFR (CKD-EPI)NonAf >90 (>60 ml/min/1.73 sqM) Glucose 99 (74-99) mg/dL Calcium 9.3 (8.4-10.2) mg/dL Magnesium 2.1 (1.6-2.3) mg/dL Total Bilirubin 0.7 (0.2-1.3) mg/dL AST 54 H (14-36) U/L ALT 53 H (4-34) U/L Alkaline Phosphatase 123 (38-126) U/L Troponin I <0.012 (0.000-0.034) ng/mL Total Protein 7.5 (6.3-8.2) g/dL Albumin 4.4 (3.5-5.0) g/dL 11/15/23 Range/Units 09:21 WBC 7.4 (3.8-10.6) k/uL RBC 4.95 (3.80-5.40) m/uL Hgb 14.1 (11.4-16.0) gm/dL Hct 41.3 (34.0-46.0) % MCV 83.5 (80.0-100.0) fL MCH 28.5 (25.0-35.0) pg MCHC 34.2 (31.0-37.0) g/dL RDW 16.2 H (11.5-15.5) % Plt Count 186 (150-450) k/uL MPV 9.9 Neutrophils % 65 % Lymphocytes % 21 % Monocytes % 6 % Eosinophils % 5 % Basophils % 1 % Neutrophils # 4.8 (1.3-7.7) k/uL Lymphocytes # 1.6 (1.0-4.8) k/uL Monocytes # 0.4 (0-1.0) k/uL Eosinophils # 0.4 (0-0.7) k/uL Basophils # 0.1 (0-0.2) k/uL Poikilocytosis Slight Anisocytosis Slight PT (10.0-12.5) sec INR (<1.2) APTT (22.0-30.0) sec Sodium (137-145) mmol/L Potassium (3.5-5.1) mmol/L Chloride (98-107) mmol/L Carbon Dioxide (22-30) mmol/L Anion Gap mmol/L BUN (7-17) mg/dL Creatinine (0.52-1.04) mg/dL Est GFR (CKD-EPI)AfAm (>60 ml/min/1.73 sqM) Est GFR (CKD-EPI)NonAf (>60 ml/min/1.73 sqM) Glucose (74-99) mg/dL Calcium (8.4-10.2) mg/dL Magnesium (1.6-2.3) mg/dL Total Bilirubin (0.2-1.3) mg/dL AST (14-36) U/L ALT (4-34) U/L Alkaline Phosphatase (38-126) U/L Troponin I (0.000-0.034) ng/mL Total Protein (6.3-8.2) g/dL Albumin (3.5-5.0) g/dL - EKG Data -: EKG Interpreted by Nm EKG Comments: EKG performed at 9: 05 ventricular paced rate of 84 QRS 179 QT/QTc 454/495 Disposition Clinical Impression: Spasm of left trapezius muscle Disposition: HOME SELF-CARE Condition: Stable Instructions (If sedation given, give patient instructions): Spasmodic Torticollis (ED), Muscle Spasm (ED) Additional Instructions: Please return to the Emergency Department if symptoms worsen or any other concerns. Prescriptions: Cyclobenzaprine [Flexeril] 10 mg PO TID PRN #15 tab PRN Reason: Muscle Spasm Is patient prescribed a controlled substance at d/c from ED?: No Referrals: Daniel Mosqueda MD [Primary Care Provider] - 1-2 days Time of Disposition: 10:26
[2023-11-15] MEDS: ONDANSETRON 4 MG/2 ML VIAL IVP STA (09:20)
[2023-11-15] MEDS: ORPHENADRINE 30 MG/ML 2 ML VIAL IVP STA (09:20)
[2023-11-15] MEDS: MORPHINE SULFATE 2 MG/ML SYRINGE IVP ONE (09:20)
[2023-11-15 09:31] LABS: Anisocytosis Slight; Basophils # (A) 0.1 k/uL (0-0.2); Basophils % (A) 1 %; Eosinophils # (A) 0.4 k/uL (0-0.7); Eosinophils % (A) 5 %; HCT 41.3 % (34.0-46.0); HGB 14.1 gm/dL (11.4-16.0); Lymphocytes # (A) 1.6 k/uL (1.0-4.8); Lymphocytes % (A) 21 %; MCH 28.5 pg (25.0-35.0); MCHC 34.2 g/dL (31.0-37.0); MCV 83.5 fL (80.0-100.0); Mean Platelet Volume 9.9; Monocytes # (A) 0.4 k/uL (0-1.0); Monocytes % (A) 6 %; Neutrophils # (A) 4.8 k/uL (1.3-7.7); Neutrophils % (A) 65 %; Platelet Count 186 k/uL (150-450); Poikilocytosis Slight; RBC 4.95 m/uL (3.80-5.40); RDW 16.2 % (11.5-15.5); WBC 7.4 k/uL (3.8-10.6)
[2023-11-15 09:41] LABS: INR 2.8 (<1.2); Partial Thromboplastin Time 32.2 sec (22.0-30.0); Prothrombin Time 27.3 sec (10.0-12.5)
--- NOTE | 2023-11-15 09:50 | XR ---
EXAMINATION TYPE: XR chest 2V DATE OF EXAM: 11/15/2023 9:35 AM CLINICAL INDICATION:Female, 58 years old with history of Chest Pain; [facility] COMPARISON: Chest radiographs from 10/05/2023 TECHNIQUE: XR chest 2V Frontal and lateral views of the chest. FINDINGS: Lungs/Pleura: There is no evidence of pleural effusion, focal consolidation, or pneumothorax. Pulmonary vascularity: Unremarkable. Heart/mediastinum: Cardiomediastinal silhouette is unremarkable. Three lead cardiac conduction device overlying the left hemithorax with lead tips projecting over the right ventricle, right atrium and c oronary sinus. Musculoskeletal: No acute osseous pathology. Other findings: None IMPRESSION: No acute cardiopulmonary disease/process.
[2023-11-15 10:00] LABS: ALT 53 U/L (4-34); AST 54 U/L (14-36); African American GFR (CKD) >90 (>60 ml/min/1.73 sqM); Albumin 4.4 g/dL (3.5-5.0); Alkaline Phosphatase 123 U/L (38-126); Anion Gap 10 mmol/L; Blood Urea Nitrogen 16 mg/dL (7-17); Calcium 9.3 mg/dL (8.4-10.2); Carbon Dioxide 22 mmol/L (22-30); Chloride 107 mmol/L (98-107); Glucose 99 mg/dL (74-99); Magnesium 2.1 mg/dL (1.6-2.3); Non-African American GFR(CKD) >90 (>60 ml/min/1.73 sqM); Potassium 4.3 mmol/L (3.5-5.1); Sodium 139 mmol/L (137-145); Total Bilirubin 0.7 mg/dL (0.2-1.3); Total Protein 7.5 g/dL (6.3-8.2)
[2023-11-15] MEDS: MORPHINE SULFATE 4 MG/ML SYRINGE IVP STA (10:39)
[2023-11-15] MEDS: ACET/COD 300 MG/30 MG STARTER PACK 6 TAB BTL PO STA (10:58)
[2023-11-15 11:35] VITALS: BP 119/75; PULSE 76; RESP 17
== END 2023-11-15 11:02 | disposition home or self-care (01) ==
LOC: EC 08:13
DX: M62.830 Muscle spasm of back (principal); Z87.891 Personal history of nicotine dependence
CPT/HCPCS: 99284; 96374; 96375 ×2; 96376; 36415; 93005; 80053; 83735; 84484; 85025; 85610; 85730; 71046; J2270 ×2; J2360; J2405

== ENCOUNTER 2024-02-07 18:10 | Emergency (ER) | payer MEDICARE ==
[2024-02-07 18:25] VITALS: TEMP 98.2
[2024-02-07] MEDS: methylPREDNISolone SOD SUCCI 125 MG/2 ML VIAL IV STA (19:01)
[2024-02-07 19:19] LABS: Basophils % (A) 1 %; Eosinophils # (A) 0.2 k/uL (0-0.7); Eosinophils % (A) 3 %; HCT 37.9 % (34.0-46.0); HGB 12.8 gm/dL (11.4-16.0); Lymphocytes # (A) 1.2 k/uL (1.0-4.8); Lymphocytes % (A) 19 %; MCH 28.7 pg (25.0-35.0); MCHC 33.8 g/dL (31.0-37.0); MCV 84.8 fL (80.0-100.0); Mean Platelet Volume 8.7; Monocytes # (A) 0.4 k/uL (0-1.0); Monocytes % (A) 6 %; Neutrophils # (A) 4.4 k/uL (1.3-7.7); Neutrophils % (A) 71 %; Platelet Count 192 k/uL (150-450); Poikilocytosis Slight; RBC 4.47 m/uL (3.80-5.40); RDW 15.3 % (11.5-15.5); WBC 6.2 k/uL (3.8-10.6)
--- NOTE | 2024-02-07 19:23 | ED ---
SOB HPI - General Chief Complaint: Shortness of Breath Stated Complaint: SOB Time Seen by Provider: 02/07/24 18:40 Source: patient, RN notes reviewed Mode of arrival: wheelchair - History of Present Illness Initial Comments: 58-year-old female with a history of COPD who states she has had difficulty with breathing for the last several days and now is severe and refractory to her home medication. She states she feels like she has chest tightness and cannot get a good breath. She feels hot no overt palpitations however. She feels like she did when she had an exacerbation in the past. She does have a minimally productive cough. No other current complaints or modifying factors however MD Complaint: shortness of breath, cough - Related Data Home Medications Medication Instructions Recorded Confirmed Spironolactone [Aldactone] 25 mg PO HS 08/15/20 02/07/24 Amiodarone [Cordarone] 100 mg PO DAILY 06/20/21 02/07/24 Multivitamins, Thera [Multivitamin 1 tab PO DAILY 09/05/22 02/07/24 (formulary)] [place]-3/Dha/Epa/Fish Oil [Fish Oil 1 cap PO DAILY 05/08/23 02/07/24 1,000 mg Softgel] carvediloL [Coreg] 6.25 mg PO BID 05/08/23 02/07/24 lisinopriL [Zestril] 2.5 mg PO DAILY 05/08/23 02/07/24 Warfarin Sodium 6 mg PO HS 10/05/23 02/07/24 Warfarin [Coumadin] 2 mg PO HS 10/05/23 02/07/24 Previous Rx's Medication Instructions Recorded predniSONE [Deltasone] 20 mg PO BID #10 tab 02/07/24 Allergies Allergy/AdvReac Type Severity Reaction Status Date / Time hydromorphone [From Dilaudid] AdvReac Nausea & Verified 02/07/24 19:26 Vomiting Review of Systems ROS Statement: Those systems with pertinent positive or pertinent negative responses have been documented in the HPI. ROS Other: All systems not noted in ROS Statement are negative. Past Medical History Past Medical History: Chest Pain / Angina, COPD, Hyperlipidemia, Hypertension, Myocardial Infarction ([place]), Pneumonia, Pulmonary Embolus ([place]) Additional Past Medical History / Comment(s): cardiomyopathy, PE (6yrs ago), brain aneursym [place] Last Myocardial Infarction Date:: 5 yrs ago History of Any Multi-Drug Resistant Organisms: None Reported Past Surgical History: AICD, Cholecystectomy, Heart Catheterization Additional Past Surgical History / Comment(s): AICD defibrillator placed 6 years ago, Right perforated eardrum Past Anesthesia/Blood Transfusion Reactions: No Reported Reaction Type of Cardiac Device: AICD Device Placement Date:: 2015 Past Psychological History: Anxiety, Depression Smoking Status: Former smoker Past Alcohol Use History: None Reported Past Drug Use History: None Reported - Past Family History Mother Family Medical History: Diabetes Mellitus, Hypertension Father Family Medical History: No Reported History General Exam - General Exam Comments Initial Comments: Is a well-developed well-nourished awake alert oriented x 4 female General appearance: alert, in no apparent distress Head exam: Present: atraumatic, normocephalic, normal inspection Eye exam: Present: normal appearance, PERRL, EOMI. Absent: scleral icterus, conjunctival injection, periorbital swelling ENT exam: Present: normal exam, mucous membranes moist Neck exam: Present: normal inspection, full ROM, other (No Stridor JVD or bruits). Absent: tenderness, meningismus, lymphadenopathy Respiratory exam: Present: wheezes, decreased breath sounds. Absent: respiratory distress, rales, rhonchi, stridor Cardiovascular Exam: Present: normal rhythm, tachycardia, normal heart sounds. Absent: systolic murmur, diastolic murmur, rubs, gallop, clicks GI/Abdominal exam: Present: soft, normal bowel sounds. Absent: distended, tenderness, guarding, rebound, rigid Extremities exam: Present: normal inspection, full ROM, normal capillary refill. Absent: tenderness, pedal edema, joint swelling, calf tenderness Back exam: Present: normal inspection Neurological exam: Present: alert, oriented X3, CN II-XII intact Psychiatric exam: Present: normal affect, normal mood Skin exam: Present: warm, dry, intact, normal color. Absent: rash Course Vital Signs 02/07/24 02/07/24 02/07/24 18:21 18:43 20:29 Temperature 98.2 F Pulse Rate 117 H 77 Respiratory 24 27 H Rate Blood Pressure 164/104 O2 Sat by Pulse 96 Oximetry 02/07/24 20:37 Temperature Pulse Rate 79 Respiratory Rate Blood Pressure O2 Sat by Pulse Oximetry Medical Decision Making - Medical Decision Making Evaluation the patient after treatment she is feeling much improved with good aeration no wheezing. After long discussion she would like to be sent home she does have proper medications at home she will be sent home on a short course of oral steroids. Was pt. sent in by a medical professional or institution (STUART Alarcon, ENTRY LEVEL SOFTWARE ENGINEER, urgent care, hospital, or [facility]...) When possible be specific @ -No Did you speak to anyone other than the patient for history (EMS, parent, family, police, friend...)? What history was obtained from this source @ -No Did you review nursing and triage notes (agree or disagree)? Why? @ -I reviewed and agree with nursing and triage notes Were old charts reviewed (outside hosp., previous admission, EMS record, old EK G, old radiological studies, urgent care reports/EKG's, [facility] records)? Report findings @ -No old charts were reviewed Differential Diagnosis (chest pain, altered mental status, abdominal pain women, abdominal pain men, vaginal bleeding, weakness, fever, dyspnea, syncope, headache, dizziness, GI bleed, back pain, seizure, CVA, palpatations, mental health, musculoskeletal)? @ -Dyspnea EKG interpreted by me (3pts min.). @ -As above EKG interpreted by me electronic pacemaker rhythm of 104 MA interval 155 QRS duration 170 QT/QTc 4 491 no acute changes seen X-rays interpreted by me (1pt min.). @ -Chest x-ray interpreted by me negative for acute process CT interpreted by me (1pt min.). @ -None done U/S interpreted by me (1pt. min.). @ -None done What testing was considered but not performed or refused? (CT, X-rays, U/S, labs)? Why? @ -None What meds were considered but not given or refused? Why? @ -None Did you discuss the management of the patient with other professionals (professionals i.e. STUART Alarcon, ENTRY LEVEL SOFTWARE ENGINEER, lab, RT, psych nurse, outreach and education social worker, earth observations chief scientist, teacher, philanthropy officer, case mgr)? Give summary @ -No Was smoking cessation discussed for >3mins.? @ -No Was critical care preformed (if so, how long)? @ -No Were there social determinants of health that impacted care today? How? (Homelessness, low income, unemployed, alcoholism, drug addiction, transportation, low edu. Level, literacy, decrease access to med. care, penitentiary, rehab)? @ -No Was there de-escalation of care discussed even if they declined (Discuss DNR or withdrawal of care, Hospice)? DNR status @ -No What co-morbidities impacted this encounter? (DM, HTN, Smoking, COPD, CAD, Cancer, CVA, ARF, Chemo, Hep., AIDS, mental health diagnosis, sleep apnea, morbid obesity)? @ -COPD Was patient admitted / discharged? Hospital course, mention meds given and route, prescriptions, significant lab abnormalities, going to OR and other pertinent info. @ -Hospital course patient was discharged home Undiagnosed new problem with uncertain prognosis? @ -No Drug Therapy requiring intensive monitoring for toxicity (Heparin, Nitro, Insulin, Cardizem)? @ -No Were any procedures done? @ -No Diagnosis/symptom? @ -COPD exacerbation Acute, or Chronic, or Acute on Chronic? @ -Acute Uncomplicated (without systemic symptoms) or Complicated (systemic symptoms)? @ -Default Side effects of treatment? @ -No Exacerbation, Progression, or Severe Exacerbation? @ -No Poses a threat to life or bodily function? How? (Chest pain, [place], [place], pneumonia, PE, COPD, DKA, ARF, appy, cholecystitis, CVA, Diverticulitis, Homicidal, Suicidal, threat to staff... and all critical care pts) @ -Potential - Lab Data Result diagrams: 02/07/24 19:05 02/07/24 19:05 Lab Results 02/07/24 02/07/24 02/07/24 Range/Units 19:05 19:05 19:05 WBC 6.2 (3.8-10.6) k/uL RBC 4.47 (3.80-5.40) m/uL Hgb 12.8 (11.4-16.0) gm/dL Hct 37.9 (34.0-46.0) % MCV 84.8 (80.0-100.0) fL MCH 28.7 (25.0-35.0) pg MCHC 33.8 (31.0-37.0) g/dL RDW 15.3 (11.5-15.5) % Plt Count 192 (150-450) k/uL MPV 8.7 Neutrophils % 71 % Lymphocytes % 19 % Monocytes % 6 % Eosinophils % 3 % Basophils % 1 % Neutrophils # 4.4 (1.3-7.7) k/uL Lymphocytes # 1.2 (1.0-4.8) k/uL Monocytes # 0.4 (0-1.0) k/uL Eosinophils # 0.2 (0-0.7) k/uL Basophils # 0.0 (0-0.2) k/uL Poikilocytosis Slight PT 15.6 H (10.0-12.5) sec INR 1.5 H (<1.2) APTT 27.0 (22.0-30.0) sec D-Dimer 0.29 (<0.60) mg/L FEU Sodium 141 (137-145) mmol/L Potassium 3.7 (3.5-5.1) mmol/L Chloride 107 (98-107) mmol/L Carbon Dioxide 27 (22-30) mmol/L Anion Gap 7 mmol/L BUN 15 (7-17) mg/dL Creatinine 0.74 (0.52-1.04) mg/dL Est GFR (CKD-EPI)AfAm >90 (>60 ml/min/1.73 sqM) Est GFR (CKD-EPI)NonAf 90 (>60 ml/min/1.73 sqM) Glucose 94 (74-99) mg/dL Plasma Lactic Acid Carlos Eduardo (0.7-2.0) mmol/L Calcium 9.6 (8.4-10.2) mg/dL Magnesium 1.9 (1.6-2.3) mg/dL Total Bilirubin 0.8 (0.2-1.3) mg/dL AST 45 H (14-36) U/L ALT 30 (4-34) U/L Alkaline Phosphatase 107 (38-126) U/L Troponin I (0.000-0.034) ng/mL NT-Pro-B Natriuret Pep 392 pg/mL Total Protein 7.0 (6.3-8.2) g/dL Albumin 4.2 (3.5-5.0) g/dL 02/07/24 02/07/24 Range/Units 19:05 19:05 WBC (3.8-10.6) k/uL RBC (3.80-5.40) m/uL Hgb (11.4-16.0) gm/dL Hct (34.0-46.0) % MCV (80.0-100.0) fL MCH (25.0-35.0) pg MCHC (31.0-37.0) g/dL RDW (11.5-15.5) % Plt Count (150-450) k/uL MPV Neutrophils % % Lymphocytes % % Monocytes % % Eosinophils % % Basophils % % Neutrophils # (1.3-7.7) k/uL Lymphocytes # (1.0-4.8) k/uL Monocytes # (0-1.0) k/uL Eosinophils # (0-0.7) k/uL Basophils # (0-0.2) k/uL Poikilocytosis PT (10.0-12.5) sec INR (<1.2) APTT (22.0-30.0) sec D-Dimer (<0.60) mg/L FEU Sodium (137-145) mmol/L Potassium (3.5-5.1) mmol/L Chloride (98-107) mmol/L Carbon Dioxide (22-30) mmol/L Anion Gap mmol/L BUN (7-17) mg/dL Creatinine (0.52-1.04) mg/dL Est GFR (CKD-EPI)AfAm (>60 ml/min/1.73 sqM) Est GFR (CKD-EPI)NonAf (>60 ml/min/1.73 sqM) Glucose (74-99) mg/dL Plasma Lactic Acid Carlos Eduardo 1.6 (0.7-2.0) mmol/L Calcium (8.4-10.2) mg/dL Magnesium (1.6-2.3) mg/dL Total Bilirubin (0.2-1.3) mg/dL AST (14-36) U/L ALT (4-34) U/L Alkaline Phosphatase (38-126) U/L Troponin I 0.013 (0.000-0.034) ng/mL NT-Pro-B Natriuret Pep pg/mL Total Protein (6.3-8.2) g/dL Albumin (3.5-5.0) g/dL Disposition Clinical Impression: COPD exacerbation Disposition: HOME SELF-CARE Condition: Good Instructions (If sedation given, give patient instructions): COPD (Chronic Obstructive Pulmonary Disease) (ED) Prescriptions: predniSONE [Deltasone] 20 mg PO BID #10 tab Is patient prescribed a controlled substance at d/c from ED?: No Referrals: Daniel Mosqueda MD [Primary Care Provider] - 1-2 days Time of Disposition: 21:00 Decision Date: 02/07/24 Decision Time: 21:05
[2024-02-07 19:31] LABS: INR 1.5 (<1.2); Prothrombin Time 15.6 sec (10.0-12.5)
--- NOTE | 2024-02-07 19:37 | XR ---
EXAMINATION TYPE: XR chest 2V DATE OF EXAM: 02/07/2024 7:10 PM CLINICAL INDICATION:Female, 58 years old with history of difficulty breathing; [facility] COMPARISON: Chest radiograph 11/15/2023 TECHNIQUE: XR chest 2V frontal and lateral views. FINDINGS: Lungs/Pleura: Mild interstitial prominence likely chronic in nature. There is no evidence of pleural effusion, focal consolidation, or pneumothorax. Pulmonary vascularity: Unremarkable. Heart/mediastinum: Cardiomediastinal silhouette is stable. Three lead cardiac conduction device overl ajay the left hemithorax with lead tips projecting over the right ventricle, right atrium and coronar y sinus. Musculoskeletal: No acute osseous pathology. Other findings: None IMPRESSION: No acute cardiopulmonary disease/process.
[2024-02-07 19:55] LABS: ALT 30 U/L (4-34); AST 45 U/L (14-36); African American GFR (CKD) >90 (>60 ml/min/1.73 sqM); Albumin 4.2 g/dL (3.5-5.0); Alkaline Phosphatase 107 U/L (38-126); Anion Gap 7 mmol/L; Blood Urea Nitrogen 15 mg/dL (7-17); Calcium 9.6 mg/dL (8.4-10.2); Carbon Dioxide 27 mmol/L (22-30); Chloride 107 mmol/L (98-107); Glucose 94 mg/dL (74-99); Magnesium 1.9 mg/dL (1.6-2.3); Non-African American GFR(CKD) 90 (>60 ml/min/1.73 sqM); Potassium 3.7 mmol/L (3.5-5.1); Sodium 141 mmol/L (137-145); Total Bilirubin 0.8 mg/dL (0.2-1.3)
[2024-02-07 20:02] LABS: NT-Pro-B-Type Natriuretic Pept 392 pg/mL
[2024-02-07] MEDS: IPRATROPIUM-ALBUTEROL 3 ML NEB INHALATION STA (20:29)
[2024-02-07 21:21] VITALS: BP 133/91; PULSE 64; RESP 18
== END 2024-02-07 21:23 | disposition home or self-care (01) ==
LOC: EC 18:10
DX: J44.1 Chronic obstructive pulmonary disease with (acute) exacerbation (principal); Z88.5 Allergy status to narcotic agent; Z87.891 Personal history of nicotine dependence
CPT/HCPCS: 36415; 94640; 93005; 85379; 83880; 80053; 83605; 83735; 84484; 85025; 85610; 85730; 87040; 71046; 99285; 96374; J2919

== ENCOUNTER 2024-03-17 11:24 | Emergency (ER) | payer MEDICARE ==
[2024-03-17 11:42] VITALS: RESP 20
--- NOTE | 2024-03-17 12:08 | ED ---
Skin/Abscess/FB HPI - General Chief complaint: Skin/Abscess/Foreign Body Stated complaint: Allergic reaction Time Seen by Provider: 03/17/24 12:05 Source: patient, RN notes reviewed Mode of arrival: ambulatory Limitations: no limitations - History of Present Illness Initial comments: 58-year-old female presenting with rash on abdomen x 2 days. States the rash is on the right skin fold between her abdomen and her groin. The rash is red, itchy, and painful. Denies history of diabetes. She recently was placed on a hyperthyroid medication. Denies fever or chills. - Related Data Home Medications Medication Instructions Recorded Confirmed Spironolactone [Aldactone] 25 mg PO HS 08/15/20 02/07/24 Amiodarone [Cordarone] 100 mg PO DAILY 06/20/21 02/07/24 Multivitamins, Thera [Multivitamin 1 tab PO DAILY 09/05/22 02/07/24 (formulary)] [place]-3/Dha/Epa/Fish Oil [Fish Oil 1 cap PO DAILY 05/08/23 02/07/24 1,000 mg Softgel] carvediloL [Coreg] 6.25 mg PO BID 05/08/23 02/07/24 lisinopriL [Zestril] 2.5 mg PO DAILY 05/08/23 02/07/24 Warfarin Sodium 6 mg PO HS 10/05/23 02/07/24 Warfarin [Coumadin] 2 mg PO HS 10/05/23 02/07/24 Previous Rx's Medication Instructions Recorded predniSONE [Deltasone] 20 mg PO BID #10 tab 02/07/24 Hydrocortisone Cream 1 applic TOPICAL BID #28 gm 03/17/24 [Hydrocortisone 1% Cream] Miconazole 2% Cream [Monistat-Derm] 1 applic TOPICAL BID #15 gm 03/17/24 Allergies Allergy/AdvReac Type Severity Reaction Status Date / Time hydromorphone [From Dilaudid] AdvReac Nausea & Verified 03/17/24 11:40 Vomiting Review of Systems ROS Statement: Those systems with pertinent positive or pertinent negative responses have been documented in the HPI. ROS Other: All systems not noted in ROS Statement are negative. Past Medical History Past Medical History: Chest Pain / Angina, COPD, Hyperlipidemia, Hypertension, Myocardial Infarction ([place]), Pneumonia, Pulmonary Embolus ([place]) Additional Past Medical History / Comment(s): cardiomyopathy, PE (6yrs ago), brain aneursym [place] Last Myocardial Infarction Date:: 5 yrs ago History of Any Multi-Drug Resistant Organisms: None Reported Past Surgical History: AICD, Cholecystectomy, Heart Catheterization Additional Past Surgical History / Comment(s): AICD defibrillator placed 6 years ago, Right perforated eardrum Past Anesthesia/Blood Transfusion Reactions: No Reported Reaction Type of Cardiac Device: AICD Device Placement Date:: 2015 Past Psychological History: Anxiety, Depression Smoking Status: Former smoker Past Alcohol Use History: None Reported Past Drug Use History: None Reported - Past Family History Mother Family Medical History: Diabetes Mellitus, Hypertension Father Family Medical History: No Reported History General Exam Limitations: no limitations General appearance: alert, in no apparent distress Head exam: Present: atraumatic, normocephalic, normal inspection GI/Abdominal exam: Present: soft, normal bowel sounds. Absent: distended, tenderness, guarding, rebound, rigid External exam: Present: other (Beefy erythematous, flaky rash present on right skin fold between abdomen and groin. No drainage or purulence) Extremities exam: Present: normal inspection, full ROM, normal capillary refill. Absent: tenderness, pedal edema, joint swelling, calf tenderness Neurological exam: Present: alert, oriented X3 Psychiatric exam: Present: normal affect, normal mood Skin exam: Present: warm, dry, intact, normal color Course Vital Signs 03/17/24 11:36 Temperature 98.7 F Pulse Rate 105 H Respiratory 20 Rate Blood Pressure 137/84 O2 Sat by Pulse 96 Oximetry Medical Decision Making - Medical Decision Making Was pt. sent in by a medical professional or institution (, PA, FILTER TIP CATCHER, urgent care, hospital, or prison...) When possible be specific @ -No Did you speak to anyone other than the patient for history (EMS, parent, family, police, friend...)? What history was obtained from this source @ -No Did you review nursing and triage notes (agree or disagree)? Why? @ -I reviewed and agree with nursing and triage notes Were old charts reviewed (outside hosp., previous admission, EMS record, old EKG, old radiological studies, urgent care reports/EKG's, prison records)? Report findings @ -No old charts were reviewed Differential Diagnosis (chest pain, altered mental status, abdominal pain women, abdominal pain men, vaginal bleeding, weakness, fever, dyspnea, syncope, headache, dizziness, GI bleed, back pain, seizure, CVA, palpatations, mental health, musculoskeletal)? @ -Intertrigo, cellulitis, abscess, contact dermatitis, eczema EKG interpreted by me (3pts min.). @ -None X-rays interpreted by me (1pt min.). @ -None done CT interpreted by me (1pt min.). @ -None done U/S interpreted by me (1pt. min.). @ -None done What testing was considered but not performed or refused? (CT, X-rays, U/S, labs)? Why? @ -None What meds were considered but not given or refused? Why? @ -None Did you discuss the management of the patient with other professionals (professionals i.e. , PA, FILTER TIP CATCHER, lab, RT, psych nurse, web content & social media manager, bunch maker, teacher, environmental officer, foster care case manager)? Give summary @ -No Was smoking cessation discussed for >3mins.? @ -No Was critical care preformed (if so, how long)? @ -No Were there social determinants of health that impacted care today? How? (Homelessness, low income, unemployed, alcoholism, drug addiction, transportation, low edu. Level, literacy, decrease access to med. care, penitentiary, rehab)? @ -No Was there de-escalation of care discussed even if they declined (Discuss DNR or withdrawal of care, Hospice)? DNR status @ -No What co-morbidities impacted this encounter? (DM, HTN, Smoking, COPD, CAD, Cancer, CVA, ARF, Chemo, Hep., AIDS, mental health diagnosis, sleep apnea, morbid obesity)? @ -None Was patient admitted / discharged? Hospital course, mention meds given and route, prescriptions, significant lab abnormalities, going to OR and other pertinent info. @ -Patient was discharged. Patient was seen and evaluated for rash on abdomen x 2 days. Physical exam reveals beefy, erythematous, flaky rash in skin fold between abdomen and right groin. No sign of bacterial infection. Discussed diagnosis of intertrigo with patient. Supportive care discussed in detail. Prescribed miconazole 2% cream and hydrocortisone 1%. Return parameters discussed and patient is agreeable. Case was discussed with my ED attending Dr. Lubin. Patient discharged in stable condition. Undiagnosed new problem with uncertain prognosis? @ -No Drug Therapy requiring intensive monitoring for toxicity (Heparin, Nitro, Insulin, Cardizem)? @ -No Were any procedures done? @ -No Diagnosis/symptom? @ -Intertrigo Acute, or Chronic, or Acute on Chronic? @ -Acute Uncomplicated (without systemic symptoms) or Complicated (systemic symptoms)? @ -uncomplicated Side effects of treatment? @ -No Exacerbation, Progression, or Severe Exacerbation? @ -No Poses a threat to life or bodily function? How? (Chest pain, [place], [place], pneumonia, PE, COPD, DKA, ARF, appy, cholecystitis, CVA, Diverticulitis, Homicidal, Suicidal, threat to staff... and all critical care pts) @ -No Disposition Clinical Impression: Intertrigo Disposition: HOME SELF-CARE Condition: Stable Instructions (If sedation given, give patient instructions): Skin Yeast Infection (ED) Additional Instructions: Apply miconazole 2% cream and hydrocortisone 1% twice daily to affected area. Use cold water compresses to area twice daily. Afterwards, pat area dry and apply miconazole 2% and hydrocortisone 1% cream. Keep area dry. Please return to the Emergency Department if symptoms worsen or any other concerns. Prescriptions: Hydrocortisone Cream [Hydrocortisone 1% Cream] 1 applic TOPICAL BID #28 gm Miconazole 2% Cream [Monistat-Derm] 1 applic TOPICAL BID #15 gm Is patient prescribed a controlled substance at d/c from ED?: No Referrals: Daniel Mosqueda MD [Primary Care Provider] - 1-2 days Time of Disposition: 12:30
[2024-03-17 12:45] VITALS: BP 134/81; PULSE 94; TEMP 98.2
== END 2024-03-17 12:44 | disposition home or self-care (01) ==
LOC: EC 11:24
DX: T78.40XA Allergy, unspecified, initial encounter
CPT/HCPCS: 99283

== ENCOUNTER 2024-03-28 12:22 | Inpatient (IN) | payer MEDICARE ==
--- NOTE | 2024-03-28 13:00 | ED ---
SOB HPI - General Chief Complaint: Shortness of Breath Stated Complaint: ANTONIO Time Seen by Provider: 03/28/24 12:35 Source: patient, RN notes reviewed Mode of arrival: ambulatory Limitations: no limitations - History of Present Illness Initial Comments: This is a 58-year-old female who presents to the emergency department for back pain and shortness of breath. Over the last 2 days she has had pain between her shoulder blades and right rib cage. States that it hurts to take a deep breath. The pain does not go into her chest, but states that she wants to make sure it is not cardiac related. States that the last time this happened it was related to a COPD exacerbation. Reports a history of pulmonary embolus, but states that she is on Coumadin and symptoms feel very different. MD Complaint: shortness of breath - Related Data Home Medications Medication Instructions Recorded Confirmed Spironolactone [Aldactone] 25 mg PO DAILY 08/15/20 03/28/24 Amiodarone [Cordarone] 100 mg PO DAILY 06/20/21 03/28/24 Multivitamins, Thera [Multivitamin 1 tab PO DAILY 09/05/22 03/28/24 (formulary)] [place]-3/Dha/Epa/Fish Oil [Fish Oil 1 cap PO DAILY 05/08/23 03/28/24 1,000 mg Softgel] carvediloL [Coreg] 6.25 mg PO BID 05/08/23 03/28/24 lisinopriL [Zestril] 2.5 mg PO DAILY 05/08/23 03/28/24 Warfarin Sodium 6 mg PO HS 10/05/23 03/28/24 Warfarin [Coumadin] 2 mg PO HS 10/05/23 03/28/24 ALPRAZolam [Xanax] 0.25 mg PO TID PRN 03/28/24 03/28/24 Fluticasone/Umeclidin/Vilanter 1 puff INHALATION RT-DAILY 03/28/24 03/28/24 [Trelegy Ellipta 200-62.5-25] Allergies Allergy/AdvReac Type Severity Reaction Status Date / Time hydromorphone [From Dilaudid] AdvReac Nausea & Verified 03/28/24 15:34 Vomiting Review of Systems ROS Statement: Those systems with pertinent positive or pertinent negative responses have been documented in the HPI. ROS Other: All systems not noted in ROS Statement are negative. Past Medical History Past Medical History: Chest Pain / Angina, COPD, Hyperlipidemia, Hypertension, Myocardial Infarction ([place]), Pneumonia, Pulmonary Embolus (PE) Additional Past Medical History / Comment(s): cardiomyopathy, PE (6yrs ago), brain aneursym [place] [facility] Last Myocardial Infarction Date:: 5 yrs ago History of Any Multi-Drug Resistant Organisms: None Reported Past Surgical History: AICD, Cholecystectomy, Heart Catheterization Additional Past Surgical History / Comment(s): AICD defibrillator placed 6 years ago, Right perforated eardrum Past Anesthesia/Blood Transfusion Reactions: No Reported Reaction Type of Cardiac Device: AICD Device Placement Date:: 2015 Past Psychological History: Anxiety, Depression Smoking Status: Former smoker Past Alcohol Use History: None Reported Past Drug Use History: None Reported - Past Family History Mother Family Medical History: Diabetes Mellitus, Hypertension Father Family Medical History: No Reported History General Exam Limitations: no limitations General appearance: alert, in no apparent distress Head exam: Present: atraumatic, normocephalic, normal inspection Respiratory exam: Present: decreased breath sounds, prolonged expiratory Cardiovascular Exam: Present: regular rate, normal rhythm, normal heart sounds. Absent: systolic murmur, diastolic murmur, rubs, gallop, clicks Neurological exam: Present: alert, oriented X3, CN II-XII intact Psychiatric exam: Present: normal affect, normal mood Skin exam: Present: warm, dry, intact, normal color. Absent: rash Course Vital Signs 03/28/24 03/28/24 12:27 15:09 Temperature 97.9 F Pulse Rate 118 H 105 H Respiratory 24 20 Rate Blood Pressure 145/84 158/96 O2 Sat by Pulse 95 95 Oximetry Medical Decision Making - Medical Decision Making This is a 58 year old female who presents to the emergency department for back pain and shortness of breath. Was pt. sent in by a medical professional or institution? @ -No Did you speak to anyone other than the patient for history? @ -No Did you review nursing and triage notes? @ -Yes, and I agree, it is accurate with regards to the patient's symptoms. Were old charts reviewed? @ -No Differential Diagnosis? @ -Differential Dyspnea: Coronary syndrome, arrhythmia, tamponade, asthma, COPD, pulmonary embolism, pneu monia, pneumothorax, pulmonary effusion, anaphylaxis, diabetic ketoacidosis, flailed chest, pulmonary contusion, diaphragmatic rupture, anemia, neuromuscular, this is not meant to be an all-inclusive list. EKG interpreted by me (3pts min.)? @ -EKG interpreted by me demonstrating the following: Sinus tachycardia. Ventricular rate 106 bpm, MI interval 173 ms, QRS duration 181 ms, QTc 482 ms. X-rays interpreted by me (1pt min.)? @ -Chest x-ray obtained, my interpretation identifies no localized consolidations or infiltrates. CT interpreted by me (1pt min.)? @ -Not obtained U/S interpreted by me (1pt. min.)? @ -Not obtained What testing was considered but not performed? (CT, X-rays, U/S, labs)? Why? @ -None What meds were considered but not given? Why? @ -None Did you discuss the management of the patient with other professionals? @ -Yes, Dr. Mosqueda, who accepts the patient for admission. Did you reconcile home meds? @ -Yes Was smoking cessation discussed for >3mins.? @ -No Was critical care preformed (if so, how long)? @ -No Were there social determinants of health that impacted care today? How? (Homelessness, low income, unemployed, alcoholism, drug addiction, transportation, low edu. Level, literacy, decrease access to med. care, long-term, rehab)? @ -No Was there de-escalation of care discussed even if they declined? (Discuss DNR or withdrawal of care, Hospice)? @ -No What co-morbidities impacted this encounter? (DM, HTN, Smoking, COPD, CAD, Cancer, CVA, Hep., AIDS, mental health diagnosis, sleep apnea, morbid obesity)? @ -COPD, cardiomyopathy Was patient admitted / discharged? @ -Admitted. Lab work unremarkable. Chest x-ray reveals no acute process. Upon receiving the patient's EKG, it appeared that the rhythm was not paced. This was discussed with the patient who advised that she has had the AICD for about 10 years, but cannot remember the last time she had it evaluated. We attempted to interrogate the device, however it continued to fail. Nursing staff spoke with the credit resolution representative, who advised that this was most likely , which was our concern. They advised that it had not been interrogated since 2020, and at that point only had a 2-year life span left. Patient has a history of nonischemic cardiomyopathy and V-fib arrest. She follows with Dr. Reece, but states that she has not followed up for a few years. Discussed concern for patient being discharged home and having some sort of cardiac event occur without her defibrillator working. She was subsequently admitted to medicine due to AICD being at the end of its life for likely replacement. Consult placed for cardiology. Case discussed with ED attending, Dr. Zarate. Undiagnosed new problem with uncertain prognosis? @ -None Drug Therapy requiring intensive monitoring for toxicity (Heparin, Nitro, Insulin, Cardizem)? @ -None Were any procedures done? @ -None Diagnosis/symptom? @ -AICD end of battery life Acute, or Chronic, or Acute on Chronic? @ -Acute Uncomplicated (without systemic symptoms) or Complicated (systemic symptoms)? @ -Uncomplicated Side effects of treatment? @ -None Exacerbation, Progression, or Severe Exacerbation] @ -Not applicable Poses a threat to life or bodily function? @ -Yes, patient could go into cardiac arrest - Lab Data Result diagrams: 03/28/24 12:44 03/28/24 12:44 Lab Results 03/28/24 03/28/24 03/28/24 Range/Units 12:44 12:44 12:44 WBC 5.2 (3.8-10.6) k/uL RBC 4.74 (3.80-5.40) m/uL Hgb 13.4 (11.4-16.0) gm/dL Hct 39.6 (34.0-46.0) % MCV 83.5 (80.0-100.0) fL MCH 28.2 (25.0-35.0) pg MCHC 33.8 (31.0-37.0) g/dL RDW 16.1 H (11.5-15.5) % Plt Count 171 (150-450) k/uL MPV 9.8 Neutrophils % 68 % Lymphocytes % 24 % Monocytes % 4 % Eosinophils % 3 % Basophils % 0 % Neutrophils # 3.5 (1.3-7.7) k/uL Lymphocytes # 1.2 (1.0-4.8) k/uL Monocytes # 0.2 (0-1.0) k/uL Eosinophils # 0.1 (0-0.7) k/uL Basophils # 0.0 (0-0.2) k/uL Poikilocytosis Slight Anisocytosis Slight PT 14.9 H (10.0-12.5) sec INR 1.4 H (<1.2) APTT 25.9 (22.0-30.0) sec Sodium 141 (137-145) mmol/L Potassium 3.6 (3.5-5.1) mmol/L Chloride 108 H (98-107) mmol/L Carbon Dioxide 23 (22-30) mmol/L Anion Gap 10 mmol/L BUN 10 (7-17) mg/dL Creatinine 0.85 (0.52-1.04) mg/dL Est GFR (CKD-EPI)AfAm 87 (>60 ml/min/1.73 sqM) Est GFR (CKD-EPI)NonAf 76 (>60 ml/min/1.73 sqM) Glucose 123 H (74-99) mg/dL Calcium 9.5 (8.4-10.2) mg/dL Total Bilirubin 0.8 (0.2-1.3) mg/dL AST 40 H (14-36) U/L ALT 24 (4-34) U/L Alkaline Phosphatase 108 (38-126) U/L Troponin I (0.000-0.034) ng/mL Total Protein 7.2 (6.3-8.2) g/dL Albumin 4.4 (3.5-5.0) g/dL 03/28/24 Range/Units 12:44 WBC (3.8-10.6) k/uL RBC (3.80-5.40) m/uL Hgb (11.4-16.0) gm/dL Hct (34.0-46.0) % MCV (80.0-100.0) fL MCH (25.0-35.0) pg MCHC (31.0-37.0) g/dL RDW (11.5-15.5) % Plt Count (150-450) k/uL MPV Neutrophils % % Lymphocytes % % Monocytes % % Eosinophils % % Basophils % % Neutrophils # (1.3-7.7) k/uL Lymphocytes # (1.0-4.8) k/uL Monocytes # (0-1.0) k/uL Eosinophils # (0-0.7) k/uL Basophils # (0-0.2) k/uL Poikilocytosis Anisocytosis PT (10.0-12.5) sec INR (<1.2) APTT (22.0-30.0) sec Sodium (137-145) mmol/L Potassium (3.5-5.1) mmol/L Chloride (98-107) mmol/L Carbon Dioxide (22-30) mmol/L Anion Gap mmol/L BUN (7-17) mg/dL Creatinine (0.52-1.04) mg/dL Est GFR (CKD-EPI)AfAm (>60 ml/min/1.73 sqM) Est GFR (CKD-EPI)NonAf (>60 ml/min/1.73 sqM) Glucose (74-99) mg/dL Calcium (8.4-10.2) mg/dL Total Bilirubin (0.2-1.3) mg/dL AST (14-36) U/L ALT (4-34) U/L Alkaline Phosphatase (38-126) U/L Troponin I <0.012 (0.000-0.034) ng/mL Total Protein (6.3-8.2) g/dL Albumin (3.5-5.0) g/dL - Radiology Data Radiology results: report reviewed, image reviewed Disposition Clinical Impression: AICD at end of battery life Disposition: ADMITTED IP TO THIS HOSP
[2024-03-28 13:11] LABS: ALT 24 U/L (4-34); AST 40 U/L (14-36); African American GFR (CKD) 87 (>60 ml/min/1.73 sqM); Albumin 4.4 g/dL (3.5-5.0); Alkaline Phosphatase 108 U/L (38-126); Anion Gap 10 mmol/L; Blood Urea Nitrogen 10 mg/dL (7-17); Calcium 9.5 mg/dL (8.4-10.2); Carbon Dioxide 23 mmol/L (22-30); Chloride 108 mmol/L (98-107); Glucose 123 mg/dL (74-99); Non-African American GFR(CKD) 76 (>60 ml/min/1.73 sqM); Potassium 3.6 mmol/L (3.5-5.1); Sodium 141 mmol/L (137-145); Total Bilirubin 0.8 mg/dL (0.2-1.3); Total Protein 7.2 g/dL (6.3-8.2)
[2024-03-28 13:15] LABS: Anisocytosis Slight; Basophils % (A) 0 %; Eosinophils # (A) 0.1 k/uL (0-0.7); Eosinophils % (A) 3 %; HCT 39.6 % (34.0-46.0); HGB 13.4 gm/dL (11.4-16.0); Lymphocytes # (A) 1.2 k/uL (1.0-4.8); Lymphocytes % (A) 24 %; MCH 28.2 pg (25.0-35.0); MCHC 33.8 g/dL (31.0-37.0); MCV 83.5 fL (80.0-100.0); Mean Platelet Volume 9.8; Monocytes # (A) 0.2 k/uL (0-1.0); Monocytes % (A) 4 %; Neutrophils # (A) 3.5 k/uL (1.3-7.7); Neutrophils % (A) 68 %; Platelet Count 171 k/uL (150-450); Poikilocytosis Slight; RBC 4.74 m/uL (3.80-5.40); RDW 16.1 % (11.5-15.5); WBC 5.2 k/uL (3.8-10.6)
--- NOTE | 2024-03-28 13:18 | XR ---
EXAMINATION TYPE: XR chest 2V DATE OF EXAM: 03/28/2024 COMPARISON: 02/07/2024 HISTORY: Shortness of breath TECHNIQUE: Frontal and lateral views of the chest are obtained. FINDINGS: Scattered senescent parenchymal changes noted. Hyperinflation compatible with COPD. No evidence for infiltrate. No evidence for atelectasis. Heart size is stable. Mediastinal structures are stable and grossly unremarkable. No evidence for hilar prominence. Degenerative changes dorsal spine. IMPRESSION: 1. No evidence for acute pulmonary disease.
[2024-03-28 13:32] LABS: INR 1.4 (<1.2); Partial Thromboplastin Time 25.9 sec (22.0-30.0); Prothrombin Time 14.9 sec (10.0-12.5)
[2024-03-28] MEDS: DEXAMETHASONE SOD PHOSPHATE 10 MG/ML 1 ML VIAL IVP STA (14:09)
[2024-03-28] MEDS: ACETAMINOPHEN TAB 500 MG TAB PO STA (14:10)
[2024-03-28] MEDS: CYCLOBENZAPRINE 10 MG TAB PO STA (14:10)
[2024-03-28] MEDS: LORazepam 2 MG/ML INJ IV STA (15:09)
[2024-03-28] MEDS ORDERED: NALOXONE 0.4 MG/ML 1 ML VIAL IV PRN (15:24)
[2024-03-28] MEDS: carvediloL 6.25 MG TAB PO SCH (16:57)
[2024-03-28] MEDS: ALPRAZolam 0.25 MG TAB PO PRN (16:57)
[2024-03-28] MEDS: WARFARIN 10 MG TAB PO ONE (16:57)
[2024-03-28] MEDS: MORPHINE SULFATE 4 MG/ML SYRINGE IV PRN (17:02)
[2024-03-28] MEDS: ONDANSETRON 4 MG/2 ML VIAL IVP PRN (17:02)
[2024-03-28] MEDS: SYMBICORT 160-4.5 MCG INHALER INHALATION SCH (20:32)
[2024-03-28] MEDS ORDERED: WARFARIN 2 MG TAB PO SCH (21:00)
[2024-03-28] MEDS ORDERED: NON FORMULARY DRUG (Warfarin Sodium [Warfarin Sodium] 6 MG Tablet) PO SCH (21:00)
[2024-03-28] MEDS: HYDROcodone/APAP 5-325MG 1 EACH TAB PO PRN (22:18)
[2024-03-28] MEDS: LORazepam 2 MG/ML INJ IV PRN (22:21)
--- NOTE | 2024-03-28 23:04 | HP ---
HISTORY AND PHYSICAL CHIEF COMPLAINT: Shortness of breath and back pain. HISTORY OF PRESENT ILLNESS: This is another admission for this 58-year-old female who has longstanding history of heart disease including coronary artery disease, atrial fibrillation, ventricular arrhythmias, and anxiety. She came to emergency room to be evaluated and her EKG failed to demonstrate any pacemaker spikes and her pacemaker/ICD was interrogated and the battery is . She has had no recent syncope, chest pain, etc. REVIEW OF SYSTEMS: She denies any focal neurologic deficits, difficulty with vision, hearing, chest pain, cough, hemoptysis, orthopnea, PND, nausea, vomiting, diarrhea, melena, hematochezia, dysuria, frequency, urgency, etc. PAST MEDICAL HISTORY, FAMILY HISTORY, PERSONAL AND SOCIAL HISTORIES, ALLERGIES: Reveal that she is allergic to Dilaudid. MEDICATIONS: She is on, 1. Carvedilol 6.25 twice a day. 2. Jantoven 2 mg once a day. 3. Amiodarone 200 mg once a day. 4. Spironolactone 25 mg once a day. 5. Lisinopril 2.5 once a day. 6. Protonix 40 mg twice a day. 7. Xanax. 8. Updrafts with DuoNeb. 9. Lasix 40 mg once a day. 10.Nitroglycerin p.r.n. Remainder of her history is unremarkable or noncontributory. She does not smoke. PHYSICAL EXAMINATION: VITAL SIGNS: Normal. HEENT: Head, ears, eyes, nose, mouth, and throat were normal. NECK: Veins are not distended. CHEST: Clear. No rales or rhonchi. CARDIAC: Demonstrated sinus rhythm or possibly atrial fibrillation. ABDOMEN: Soft, nontender. EXTREMITIES: Normal. NEUROLOGICAL: She is intact. DIAGNOSES: She is admitted to the hospital with diagnoses, 1. Shortness of breath. 2. Coronary artery disease. 3. History of cardiac arrhythmia. 4. Nonfunctioning pacemaker/ICD. 5. Back pain. 6. Anxiety. PLAN: 1. Bedrest. 2. IV fluids. 3. Cardiology consult. MMODL / IJN: [id number] /
[2024-03-29] MEDS: PANTOPRAZOLE 40 MG/10 ML VIAL IV SCH (08:33)
[2024-03-29] MEDS: MULTIVITAMINS, THERA 1 EACH TAB PO SCH (08:33)
[2024-03-29] MEDS: AMIODARONE 100 MG TAB PO SCH (08:33)
[2024-03-29] MEDS: SPIRONOLACTONE 25 MG TAB PO SCH (08:33)
[2024-03-29 08:42] LABS: INR 1.8 (<1.2); Prothrombin Time 18.4 sec (10.0-12.5)
[2024-03-29] MEDS: IPRATROPIUM 0.5 MG/2.5 ML NEBU INHALATION SCH (09:00)
[2024-03-29] MEDS ORDERED: NON FORMULARY DRUG (Omega-3/Dha/Epa/Fish Oil [Fish Oil 1,000 Mg Softgel] 1 EACH Capsule) PO SCH (09:00)
--- NOTE | 2024-03-29 12:01 | P.CRDCN ---
History of Present Illness Consult date: 03/29/24 Reason for Consult (text): ICD end of battery life History of present illness: This is a 58-year-old female patient of Dr. Reece last seen in the office in July 2016 with past medical history of ventricular fibrillation arrest with underlying nonischemic cardiomyopathy status post AICD, prior pulmonary embolism on warfarin therapy, hypertension, COPD, remote history of tobacco use. We have been asked to evaluate the patient for end-of-life battery on ICD. Patient states that she came into the hospital due to severe back pain across the upper back between her shoulders and ribs were sore. She denies any significant cough. No chest pain, no jaw pain. She does have chronic shortness of breath due to COPD but no worsening. No chest pain, no lower extremity edema, no lightheadedness or dizziness, no palpitations. Apparently in the ER, the device was interrogated and found to have the battery . Back pain is currently imp roved. Patient is very concerned about ICD battery. EKG sinus tachycardia with left bundle branch block, EKG from August 2023 revealed ventricularly paced rhythm Chest x-ray: No acute process. CBC is unremarkable. INR 1.8. Sodium 141, potassium 3.6, creatinine 0.85. Blood sugar 123. Troponin negative x 1. Home cardiac medications: Amiodarone 100 mg daily, atorvastatin 10 mg at bedtime, Coreg 6.25 mg twice daily, lisinopril 2.5 mg daily, Aldactone 25 mg daily, warfarin 2 mg and 6 mg evening. Echocardiogram performed 08/23/2023 revealed technically difficult study. Moderate global hypokinesis with no clear segmental wall motion abnormality. Mild mitral regurgitation. EF 40 to 45%. See scanned stress test performed 07/21/2021 showed no ischemic reversibility. Review Of Systems: At the time of my exam: CONSTITUTIONAL: Denies fever or chills. HEENT: Denies blurred vision, vision changes, or eye pain. Denies hemoptysis CARDIOVASCULAR: Denies chest pain. Denies orthopnea. Denies PND. Denies palpitations RESPIRATORY: Denies shortness of breath. Reports cough. Reports back pain. Reports wheezing GASTROINTESTINAL: Denies abdominal pain. Denies nausea or vomiting. HEMATOLOGIC: Denies bleeding disorders. GENITOURINARY: Denies any blood in urine. SKIN: Denies pruitis. Denies rash. Physical examination: Gen: This is a 58-year-old female, no acute distress VS: reviewed HEENT: Head is atraumatic, normocephalic. Pupils equal, round. Sclerae is anicteric. NECK: Supple. No JVD. LUNGS: Mild bilateral expiratory wheezing. No intercostal retractions. HEART: Regular rate and rhythm. No murmur. No tenderness to chest wall. No tenderness over AICD. ABDOMEN: Soft No tenderness. EXTREMITIES: No pedal edema. No calf tenderness. NEUROLOGICAL: Patient is awake, alert and oriented x3. Assessment: Back pain End-of-life battery on AICD COPD History of V-fib arrest Nonischemic cardiomyopathy status post AICD Severe RV dilatation Prior history of PE on Coumadin Plan: Continue patient's home cardiac medications Obtain echocardiogram Depending on results of echocardiogram, may perform stress test. Will contact Dr. Reece regarding plan for ICD battery. Thank you kindly for this consultation. Nurse practitioner note has been reviewed, I agree with documented findings and plan of care. Patient was seen and examinedVentricularly paced rhythm Past Medical History Past Medical History: Chest Pain / Angina, COPD, Hyperlipidemia, Hypertension, Myocardial Infarction ([place]), Pneumonia, Pulmonary Embolus (PE) Additional Past Medical History / Comment(s): cardiomyopathy, PE (6yrs ago), brain aneursym [place] Last Myocardial Infarction Date:: 5 yrs ago History of Any Multi-Drug Resistant Organisms: None Reported Past Surgical History: AICD, Cholecystectomy, Heart Catheterization Additional Past Surgical History / Comment(s): AICD defibrillator placed 6 years ago, Right perforated eardrum Past Anesthesia/Blood Transfusion Reactions: No Reported Reaction Type of Cardiac Device: AICD Device Placement Date:: 2015 Past Psychological History: Anxiety, Depression Smoking Status: Former smoker Past Alcohol Use History: None Reported Past Drug Use History: None Reported - Past Family History Mother Family Medical History: Diabetes Mellitus, Hypertension Father Family Medical History: No Reported History Medications and Allergies Home Medications Medication Instructions Recorded Confirmed Type Spironolactone [Aldactone] 25 mg PO DAILY 08/15/20 03/28/24 History Amiodarone [Cordarone] 100 mg PO DAILY 06/20/21 03/28/24 History Multivitamins, Thera [Multivitamin 1 tab PO DAILY 09/05/22 03/28/24 History (formulary)] [place]-3/Dha/Epa/Fish Oil [Fish Oil 1 cap PO DAILY 05/08/23 03/28/24 History 1,000 mg Softgel] carvediloL [Coreg] 6.25 mg PO BID 05/08/23 03/28/24 History lisinopriL [Zestril] 2.5 mg PO DAILY 05/08/23 03/28/24 History Warfarin Sodium 6 mg PO HS 10/05/23 03/28/24 History Warfarin [Coumadin] 2 mg PO HS 10/05/23 03/28/24 History ALPRAZolam [Xanax] 0.25 mg PO TID PRN 03/28/24 03/28/24 History Fluticasone/Umeclidin/Vilanter 1 puff INHALATION RT-DAILY 03/28/24 03/28/24 History [Trelegy Ellipta 200-62.5-25] Allergies Allergy/AdvReac Type Severity Reaction Status Date / Time hydromorphone [From Dilaudid] AdvReac Nausea & Verified 03/28/24 15:34 Vomiting Physical Exam Vitals: Vital Signs Temp Pulse Pulse Resp BP BP BP 03/29/24 08:00 97.9 F 76 20 125/68 03/29/24 03:15 98.4 F 96 20 130/80 03/28/24 23:00 98.0 F 90 20 134/83 03/28/24 22:25 98.1 F 92 16 133/80 03/28/24 17:05 96 16 131/88 03/28/24 15:09 105 H 20 158/96 03/28/24 12:27 97.9 F 118 H 24 145/84 Pulse Ox 03/29/24 08:00 95 03/29/24 03:15 93 L 03/28/24 23:00 93 L 03/28/24 22:25 93 L 03/28/24 17:05 95 03/28/24 15:09 95 03/28/24 12:27 95 Intake and Output 03/28/24 03/29/24 03/29/24 22:59 06:59 14:59 Intake Total 480 Balance 480 Intake: Oral 480 Other: Weight 113.398 kg 124.6 kg Results 03/28/24 12:44 03/28/24 12:44 Cardiac Enzymes 03/28/24 03/28/24 Range/Units 12:44 12:44 AST 40 H (14-36) U/L Troponin I <0.012 (0.000-0.034) ng/mL Coagulation 03/28/24 Range/Units 12:44 PT 14.9 H (10.0-12.5) sec APTT 25.9 (22.0-30.0) sec CBC 03/28/24 Range/Units 12:44 WBC 5.2 (3.8-10.6) k/uL RBC 4.74 (3.80-5.40) m/uL Hgb 13.4 (11.4-16.0) gm/dL Hct 39.6 (34.0-46.0) % Plt Count 171 (150-450) k/uL Comprehensive Metabolic Panel 03/28/24 Range/Units 12:44 Sodium 141 (137-145) mmol/L Potassium 3.6 (3.5-5.1) mmol/L Chloride 108 H (98-107) mmol/L Carbon Dioxide 23 (22-30) mmol/L BUN 10 (7-17) mg/dL Creatinine 0.85 (0.52-1.04) mg/dL Glucose 123 H (74-99) mg/dL Calcium 9.5 (8.4-10.2) mg/dL AST 40 H (14-36) U/L ALT 24 (4-34) U/L Alkaline Phosphatase 108 (38-126) U/L Total Protein 7.2 (6.3-8.2) g/dL Albumin 4.4 (3.5-5.0) g/dL Current Medications Generic Name Dose Route Start Last Admin Trade Name Freq PRN Reason Stop Dose Admin Acetaminophen 650 mg 03/28/24 15:24 Acetaminophen Tab 325 Mg Tab PO Q6HR PRN Mild Pain or Fever > 100.5 Hydrocodone Bitart/Acetaminophen 1 each 03/28/24 15:24 03/29/24 06:17 Hydrocodone/Apap 5-325mg 1 Each Tab PO 1 each Q4HR PRN Administration Moderate Pain (Scale 4 to 6) Alprazolam 0.25 mg 03/28/24 15:44 03/28/24 16:57 Alprazolam 0.25 Mg Tab PO 0.25 mg TID PRN Administration Anxiety Amiodarone HCl 100 mg 03/29/24 09:00 03/29/24 08:33 Amiodarone 100 Mg Tab PO 100 mg DAILY DUNCAN Administration Budesonide/Formoterol Fumarate 2 puff 03/28/24 20:00 03/28/24 20:32 Symbicort 160-4.5 Mcg Inhaler INHALATION 2 puff RT-BID DUNCAN Administration Carvedilol 6.25 mg 03/28/24 17:30 03/29/24 06:15 Carvedilol 6.25 Mg Tab PO 6.25 mg BID-W/MEALS DUNCAN Administration Ipratropium [place] 0.5 mg 03/29/24 08:00 Ipratropium 0.5 Mg/2.5 Ml Nebu INHALATION RT-QID DUNCAN Lisinopril 2.5 mg 03/29/24 09:00 03/29/24 08:33 Lisinopril 2.5 Mg Tab PO 2.5 mg DAILY DUNCAN Administration Lorazepam 1 mg 03/28/24 15:31 03/28/24 22:21 Lorazepam 2 Mg/Ml Inj IV 1 mg Q6H PRN Administration Anxiety Miscellaneous Information 0 each 03/28/24 15:53 Warfarin Per Pharmacy MISCELLANE DIRECTED PRN PHARMACY DOSING PROTOCOL Morphine Sulfate 4 mg 03/28/24 15:24 03/28/24 17:02 Morphine Sulfate 4 Mg/Ml Syringe IV 4 mg Q4HR PRN Administration Severe Pain (Scale 7 to 10) Multivitamins 1 each 03/29/24 09:00 03/29/24 08:33 Multivitamins, Thera 1 Each Tab PO 1 each DAILY DUNCAN Administration Naloxone HCl 0.2 mg 03/28/24 15:24 Naloxone 0.4 Mg/Ml 1 Ml Vial IV Q2M PRN Opioid Reversal Ondansetron HCl 4 mg 03/28/24 15:24 03/28/24 17:02 Ondansetron 4 Mg/2 Ml Vial IVP 4 mg Q8HR PRN Administration Nausea And Vomiting Pantoprazole Sodium 40 mg 03/29/24 09:00 03/29/24 08:33 Pantoprazole 40 Mg/10 Ml Vial IV 40 mg DAILY DUNCAN Administration Spironolactone 25 mg 03/29/24 09:00 03/29/24 08:33 Spironolactone 25 Mg Tab PO 25 mg DAILY DUNCAN Administration Intake and Output 03/28/24 03/29/24 03/29/24 22:59 06:59 14:59 Intake Total 480 Balance 480 Intake: Oral 480 Other: Weight 113.398 kg 124.6 kg 03/28/24 12:44 03/28/24 12:44
[2024-03-29] MEDS: WARFARIN 2 MG TAB PO ONE (17:08)
--- NOTE | 2024-03-29 17:25 | CA ---
Transthoracic Echo Report Name: Sneha Beth Age: 58 Gender: F : 1965 Exam Date: 03/29/2024 14:27 Exam Location: [place] [facility] Ht (in): 68 Wt (lb): 274 Ordering Physician: Dary Danielson Attending/Referring Phys: [id number], Jagjit Shoulder Pad Molder Maci Tovar RDCS Procedure CPT: Indications: LVF Cardiac Hx: Technical Quality: Technically difficult study Contrast 1: Definity Total Dose (mL): 2 Contrast 2: Total Dose (mL): MEASUREMENTS (Male / Female) Normal Values 2D ECHO LVOT Diameter 2.1 cm Aortic Root Diameter 3.0 cm LV Diastolic Volume MOD BP 178.9 cm??? 67 - 155 / 56 - 104 cm??? LV Systolic Volume MOD BP 89.7 cm??? 22 - 58 / 19 - 49 cm??? LV Ejection Fraction MOD BP 49.9 % >= 55 % LV Cardiac Index MOD BP 2745.8 cm???/min???m??? LV Diastolic Volume MOD 4C 184.5 cm??? LV Systolic Volume MOD 4C 86.4 cm??? LV Ejection Fraction MOD 4C 53.2 % LV Cardiac Index MOD 4C 3019.4 cm???/min???m??? LV Diastolic Length 4C 9.9 cm LV Systolic Length 4C 7.9 cm LV Diastolic Volume MOD 2C 171.0 cm??? LV Systolic Volume MOD 2C 87.8 cm??? LV Ejection Fraction MOD 2C 48.6 % LV Cardiac Index MOD 2C 2558.7 cm???/min???m??? LV Diastolic Length 2C 9.7 cm LV Systolic Length 2C 8.4 cm LA Volume 82.8 cm??? 18 - 58 / 22 - 52 cm??? LA Volume Index 33.1 cm???/m??? 16 - 28 cm???/m??? Ascending Aorta Diameter 3.2 cm DOPPLER AV Peak Velocity 131.9 cm/s AV Peak Gradient 7.0 mmHg AV Mean Velocity 93.4 cm/s AV Mean Gradient 3.9 mmHg AV Velocity Time Integral 25.9 cm LVOT Peak Velocity 132.4 cm/s LVOT Peak Gradient 7.0 mmHg LVOT Velocity Time Integral 26.2 cm LVOT Stroke Volume 87.1 cm??? LVOT Stroke Volume Index 37.3 ml/m??? LVOT Cardiac Index 2679.6 cm???/min???m??? AV Area Cont Eq vti 3.4 cm??? AV Area Cont Eq pk 3.3 cm??? MV Peak Velocity 104.6 cm/s MV Peak Gradient 4.4 mmHg MV Mean Velocity 79.7 cm/s MV Mean Gradient 2.7 mmHg MV Velocity Time Integral 29.8 cm MV Area PHT 4.7 cm??? Mitral E Point Velocity 72.1 cm/s Mitral A Point Velocity 83.8 cm/s Mitral E to A Ratio 0.9 MV Deceleration Time 162.6 ms TR Peak Velocity 253.2 cm/s TR Peak Gradient 25.6 mmHg Right Atrial Pressure 10.0 mmHg Pulmonary Artery Systolic Pressu 35.6 mmHg Right Ventricular Systolic Press 35.6 mmHg PV Peak Velocity 91.3 cm/s PV Peak Gradient 3.3 mmHg FINDINGS Left Ventricle Left ventricular ejection fraction is estimated at 45-50 %. Severely increased left ventricular diastolic volume. Severely increased left ventricular systolic volume. Mildly decreased left ventricular ejection fraction. Mildly reduced global left ventricular systolic function. Right Ventricle Normal right ventricular size with mild to moderately reduced function. Borderline elevated right ventricular systolic pressure. Right Atrium Normal right atrial size. Left Atrium Mildly increased left atrial volume. Mildly increased left atrial area. Mitral Valve Structurally normal mitral valve. No evidence for mitral valve prolapse. No mitral stenosis. Mild mitral regurgitation. Aortic Valve Aortic valve not well visualized. No aortic valve stenosis or regurgitation. Tricuspid Valve Structurally normal tricuspid valve. No tricuspid stenosis. Trace to mild tricuspid regurgitation. Pulmonic Valve Pulmonic valve not well visualized. No pulmonic stenosis. Trace pulmonic regurgitation. Pericardium No pericardial effusion. Prominent epicardial fat. Aorta Normal size aortic root and proximal ascending aorta. CONCLUSIONS Moderate LV systolic dysfunction Hypokinetic basal inferior wall suggestive of prior myocardial infarction Previewed by: Dr. Buddy Gomez MD (Electronically Signed) Final Date: 29 March 2024 17:24
[2024-03-30 05:02] LABS: INR 2.1 (<1.2); Prothrombin Time 21.4 sec (10.0-12.5)
--- NOTE | 2024-03-30 09:17 | CDI ---
Documentation Clarification Form Date: 03/30/2024 From: Azul Wharton RN CCDS Phone: [phone] Admit Date: 03/28/2024 03:31:00 PM Patient Name: Sneha Beth Visit Number: [id number] Discharge Date: ATTENTION: The Clinical Documentation Specialists (CDI) and [facility] Coding Staff appreciate your assistance in clarifying documentation. Please respond to the clarification below the line at the bottom and electronically sign. The CDI & [facility] Coding staff will review the response and follow-up if needed. Please note: Queries are made part of the Legal Health Record. If you have any questions, please contact the author of this message via ITS. Doctor/Provider: Daniel Mosqueda MD: Patient has a documented BMI of 42.1 on 03/28. Additional clarification is requested. History/Risk Factors: 58-year-old female with a history of heart disease, atrial fibrillation, ventricular arrythmias, and anxiety and AICD who presented with battery at end [facility] Clinical Indicators: 03/28 Patients weight is 113.398kg Patients height is 5ft 8in Calculated BMI is 42.1 Treatments: Healthy heart diet Please clarify if patients BMI indicates an additional diagnosis: [ ] Morbid (Extreme) (severe) obesity [ ] No additional diagnosis/not clinically significant [ ] Other, please specify ____ [ ] Unable to determine Reference: NIH Classification for BMI Overweight BMI 2529.9 Obesity (Class 1) BMI 3034.9 Obesity (Class 2) BMI 3539.9 Morbid obesity (Class 3/Extreme/severe) BMI =40 MTDD
[2024-03-30] MEDS ORDERED: REGADENOSON 0.4 MG/5 ML SYRINGE IV PRN (09:42)
[2024-03-30] MEDS ORDERED: AMINOPHYLLINE 500 MG/20 ML VIAL IV PRN (09:42)
[2024-03-30] MEDS ORDERED: CAFFEINE CITRATE 60 MG/3 ML VIAL IV PRN (09:42)
--- NOTE | 2024-03-30 13:46 | NM ---
EXAMINATION TYPE: NM stress lexiscan cardiolite DATE OF EXAM: 03/30/2024 COMPARISON: NONE CLINICAL INDICATION: Female, 58 years old with history of CP/back pain, aware she had sips of coffee; TECHNIQUE: After the intravenous administration of 10.1 mCi Tc 99m Sestamibi - Cardiolite resting SP ECT images acquired 45 minutes post injection. The patient received 0.4mg Lexiscan, 25.4 mCi Tc 99m Sestamibi - Stress images obtained [address] injection FINDINGS: Review of stress and rest SPECT images demonstrates no distinct reversible perfusion abnormality. Fix ed defects involving the cardiac apex, anterior wall and inferior wall. Gated analysis shows hypokine mai with an estimated left ventricular ejection fraction of 41 %. IMPRESSION: No scintigraphic evidence for reversible ischemia.
[2024-03-30] MEDS: WARFARIN 2 MG TAB PO ONE (16:40)
--- NOTE | 2024-03-30 17:38 | CA ---
Lexiscan Nuclear Stress Test Report Name: Sneha Beth Exam Date: 03/30/2024 11:44 Exam Location: [place] [facility] Ht (in): 68 Wt (lb): 276 BSA: 2.34 Ordering Phys: Dary Danielson Referring Phys: DENISSE Technologist: Taurus Lozoya Age: 58 Gender: F : 1965 Procedure CPT: Indications: Reflex order-Stress test ICD-10 Codes: Patient History: Medications: SEE CHART Meds past 24 hrs: Pretest Chest Pain: STRESS TEST Lexiscan Protocol Exercise Duration (min:sec): 01:[address] Depressions (mm): Angina Score: Finley Score: Resting HR (bpm): 74 Peak HR (bpm): 83 Resting BP (mmHg): 137 / 78 Peak BP (mmHg): 140 / 89 MPHR: 161 Target HR: 137 % MPHR: 52 METS: 1.0 Total Dose: Peak Dose: Atropine: Double Product: 34799 BP Response: Stress Termination: INFUSION COMPLETE Stress Symptoms: NO SYMPTOMS Stress Summary: ECG ANALYSIS Resting ECG: Baseline EKG shows sinus rhythm left bundle branch block Stress ECG: Patient was given intravenous Lexiscan as a protocol EKG changes are inconclusive CONCLUSIONS Inconclusive EKG portion of the stress test secondary to left bundle branch block Cardiolite portion of the stress test will be reported separately Dr. Buddy Gomez MD (Electronically Signed) Final Date: 30 March 2024 17:37
--- NOTE | 2024-03-30 17:43 | P.PN ---
Subjective Progress Note Date: 03/30/24 Reason for Consult (text): ICD end of battery life History of present illness: This is a 58-year-old female patient of Dr. Reece last seen in the office in July 2016 with past medical history of ventricular fibrillation arrest with underlying nonischemic cardiomyopathy status post AICD, prior pulmonary embolism on warfarin therapy, hypertension, COPD, remote history of tobacco use. We have been asked to evaluate the patient for end-of-life battery on ICD. Patient states that she came into the hospital due to severe back pain across the upper back between her shoulders and ribs were sore. She denies any significant cough. No chest pain, no jaw pain. She does have chronic shortness of breath due to COPD but no worsening. No chest pain, no lower extremity edema, no lightheadedness or dizziness, no palpitations. Apparently in the ER, the device was interrogated and found to have the battery . Back pain is currently improved. Patient is very concerned about ICD battery. EKG sinus tachycardia with left bundle branch block, EKG from August 2023 revealed ventricularly paced rhythm Chest x-ray: No acute process. CBC is unremarkable. INR 1.8. Sodium 141, potassium 3.6, creatinine 0.85. Blood sugar 123. Troponin negative x 1. Home cardiac medications: Amiodarone 100 mg daily, atorvastatin 10 mg at bedtime, Coreg 6.25 mg twice daily, lisinopril 2.5 mg daily, Aldactone 25 mg daily, warfarin 2 mg and 6 mg evening. Echocardiogram performed 08/23/2023 revealed technically difficult study. Moderate global hypokinesis with no clear segmental wall motion abnormality. Mild mitral regurgitation. EF 40 to 45%. See scanned stress test performed 07/21/2021 showed no ischemic reversibility. 03/30 Discussed options with the patient and she is agreeable to go for Lexiscan stress test today. Is understood that patient had a couple sips of coffee only this morning. Also case has been discussed with Dr. Reece regarding battery upgrade. Blood pressure 124/67, heart rate 76, pulse ox 94% on room air. No arrhythmias on telemetry. INR is 2.1. Echocardiogram reveals moderate LV systolic dysfunction with EF of 45 to 50%, hypokinetic basal inferior wall suggestive of prior [place]. Physical examination: Gen: This is a 58-year-old female, no acute distress VS: reviewed HEENT: Head is atraumatic, normocephalic. Pupils equal, round. Sclerae is anicteric. NECK: Supple. No JVD. LUNGS: Mild bilateral expiratory wheezing. No intercostal retractions. HEART: Regular rate and rhythm. No murmur. No tenderness to chest wall. ABDOMEN: Soft No tenderness. EXTREMITIES: No pedal edema. No calf tenderness. NEUROLOGICAL: Patient is awake, alert and oriented x3. Assessment: Back pain, rule out cardiac ischemia End-of-life battery on AICD COPD History of V-fib arrest Nonischemic cardiomyopathy status post AICD Severe RV dilatation Prior history of PE on Coumadin Plan: Continue patient's home cardiac medications Obtain echocardiogram Obtain Lexiscan Cardiolite stress test today Will contact Dr. Reece regarding plan for ICD battery. Thank you kindly for this consultation. Nurse practitioner note has been reviewed, I agree with documented findings and plan of care. Patient was seen and examinedVentricularly paced rhythm Objective - Vital Signs Vital signs: Vital Signs Temp 97.5 F L 03/30/24 15:37 Pulse 83 03/30/24 15:37 Resp 16 03/30/24 15:37 BP 95/64 03/30/24 15:37 Pulse Ox 93 L 03/30/24 11:04 FiO2 Intake & Output 03/29/24 03/30/24 03/30/24 18:59 06:59 18:59 Intake Total 622 598 Output Total 200 Balance 622 -200 598 Weight 125.6 kg Intake: Oral 622 598 Output: Urine 200 Other: # Voids 2 5 # Bowel Movements 1 - Labs CBC & Chem 7: 03/28/24 12:44 03/28/24 12:44 Labs: Abnormal Lab Results - Last 24 Hours (Table) 03/30/24 Range/Units 04:32 PT 21.4 H (10.0-12.5) sec INR 2.1 H (<1.2)
--- NOTE | 2024-03-30 19:01 | P.PN ---
Progress Note - Text Biventricular ICD generator change on Wednesday with Dr. Reece IV vancomycin at 6 AM on Wednesday, prior to entering EP lab Do not hold warfarin for this procedure It can be done on therapeutic INR between 2.0 and 3.0 Daily Hibiclens bath No EKG patches over left pectoral area
[2024-03-31] MEDS: PANTOPRAZOLE 40 MG TABLET PO SCH (06:16)
[2024-03-31 06:29] LABS: INR 2.5 (<1.2); Prothrombin Time 24.9 sec (10.0-12.5)
--- NOTE | 2024-03-31 13:09 | P.PN ---
Subjective Progress Note Date: 03/31/24 Reason for Consult (text): ICD end of battery life History of present illness: This is a 58-year-old female patient of Dr. Reece last seen in the office in July 2016 with past medical history of ventricular fibrillation arrest with underlying nonischemic cardiomyopathy status post AICD, prior pulmonary embolism on warfarin therapy, hypertension, COPD, remote history of tobacco use. We have been asked to evaluate the patient for end-of-life battery on ICD. Patient states that she came into the hospital due to severe back pain across the upper back between her shoulders and ribs were sore. She denies any significant cough. No chest pain, no jaw pain. She does have chronic shortness of breath due to COPD but no worsening. No chest pain, no lower extremity edema, no lightheadedness or dizziness, no palpitations. Apparently in the ER, the device was interrogated and found to have the battery . Back pain is currently improved. Patient is very concerned about ICD battery. EKG sinus tachycardia with left bundle branch block, EKG from August 2023 revealed ventricularly paced rhythm Chest x-ray: No acute process. CBC is unremarkable. INR 1.8. Sodium 141, potassium 3.6, creatinine 0.85. Blood sugar 123. Troponin negative x 1. Home cardiac medications: Amiodarone 100 mg daily, atorvastatin 10 mg at bedtime, Coreg 6.25 mg twice daily, lisinopril 2.5 mg daily, Aldactone 25 mg daily, warfarin 2 mg and 6 mg evening. Echocardiogram performed 08/23/2023 revealed technically difficult study. Moderate global hypokinesis with no clear segmental wall motion abnormality. Mild mitral regurgitation. EF 40 to 45%. See scanned stress test performed 07/21/2021 showed no ischemic reversibility. 03/30 Discussed options with the patient and she is agreeable to go for Lexiscan stress test today. Is understood that patient had a couple sips of coffee only this morning. Also case has been discussed with Dr. Reece regarding battery upgrade. Blood pressure 124/67, heart rate 76, pulse ox 94% on room air. No arrhythmias on telemetry. INR is 2.1. Echocardiogram reveals moderate LV systolic dysfunction with EF of 45 to 50%, hypokinetic basal inferior wall suggestive of prior [place]. 03/31 Yesterday, patient underwent Lexiscan stress test which was negative. Patient is also been seen by Dr. Reece and he has made arrangements for patient to undergo ICD battery change on Wednesday. Patient denies having any chest pain at this time. Back pain is significantly improved. Blood pressure 124/80, heart rate 76, pulse ox 96% on room air. INR is 2.5. Physical examination: Gen: This is a 58-year-old female, no acute distress VS: reviewed HEENT: Head is atraumatic, normocephalic. Pupils equal, round. Sclerae is anicteric. NECK: Supple. No JVD. LUNGS: Mild bilateral expiratory wheezing. No intercostal retractions. HEART: Regular rate and rhythm. No murmur. No tenderness to chest wall. ABDOMEN: Soft No tenderness. EXTREMITIES: No pedal edema. No calf tenderness. NEUROLOGICAL: Patient is awake, alert and oriented x3. Assessment: Back pain, ruled out cardiac ischemia End-of-life battery on AICD COPD History of V-fib arrest Nonischemic cardiomyopathy status post AICD Severe RV dilatation Prior history of PE on Coumadin Plan: Continue patient's home cardiac medications Continue Coumadin, pharmacy dosing Patient will be scheduled for ICD battery change on Wednesday Thank you kindly for this consultation. Nurse practitioner note has been reviewed, I agree with documented findings and plan of care. Patient was seen and examinedVentricularly paced rhythm Objective - Vital Signs Vital signs: Vital Signs Temp 97.7 F 03/31/24 04:00 Pulse 70 03/31/24 04:00 Resp 18 03/31/24 04:00 BP 118/74 03/31/24 04:00 Pulse Ox 93 L 03/31/24 04:00 FiO2 Intake & Output 03/30/24 03/31/24 03/31/24 18:59 06:59 18:59 Intake Total 598 118 Balance 598 118 Weight 124.6 kg Intake: Oral 598 118 Other: # Voids 5 1 # Bowel Movements 1 - Labs CBC & Chem 7: 03/28/24 12:44 03/28/24 12:44 Labs: Abnormal Lab Results - Last 24 Hours (Table) 03/31/24 Range/Units 05:22 PT 24.9 H (10.0-12.5) sec INR 2.5 H (<1.2)
[2024-03-31] MEDS: WARFARIN 2 MG TAB PO SCH (16:53)
--- NOTE | 2024-03-31 20:25 | PN ---
PROGRESS NOTE DATE OF SERVICE: 03/30/2024 CHIEF COMPLAINT: Pacemaker failure. HISTORY OF PRESENT ILLNESS: This lady is stable and there has been no interval change. She awaits any further recommendations from Cardiology. PHYSICAL EXAMINATION: CHEST: Clear. CARDIAC: Normal and she is in atrial fibrillation. IMPRESSION: 1. Pacemaker/ICD failure. 2. Atrial fibrillation. 3. Coronary artery disease. PLAN: Await Cardiology's treatment plan. MMODL / IJN: [id number] /
[2024-03-31] MEDS: traZODone HCL 100 MG TAB PO PRN (22:04)
--- NOTE | 2024-04-01 00:28 | HP ---
HISTORY AND PHYSICAL CHIEF COMPLAINT: Low back pain and chest pain. HISTORY OF PRESENT ILLNESS: This is another admission for this 58-year-old female. She came to the emergency room complaining of back pain and chest pain. She has had a longstanding history of various problems including coronary artery disease, heart failure, cerebral aneurysm, depression, and other issues. When she was in the emergency room, an EKG was performed and failed to demonstrate her pacemaker spikes. It is believed that she has a pacemaker/ICD and she is admitted. She has not had any recent syncope, chest pain, etc. REVIEW OF SYSTEMS: Otherwise unremarkable or noncontributory. PHYSICAL EXAMINATION: VITAL SIGNS: Normal. She is in atrial fibrillation. HEAD, EARS, EYES, NOSE, MOUTH AND THROAT: Normal. CHEST: Clear. CARDIAC: Unremarkable other than her atrial fibrillation. ABDOMEN: Soft, nontender. EXTREMITIES: Normal. NEUROLOGICAL: She is intact. IMPRESSION: She is admitted to the hospital with a diagnoses of, 1. Pacemaker failure. 2. History of coronary artery disease. 3. Atrial fibrillation. 4. Cerebral aneurysm. 5. Depression. PLAN: 1. Bed rest. 2. Telemetry. 3. Cardiology consult. MMODL / IJN: [id number] /
--- NOTE | 2024-04-01 01:13 | PN ---
PROGRESS NOTE DATE OF SERVICE: 03/29/2024 CHIEF COMPLAINT: Pacemaker malfunction. HISTORY OF PRESENT ILLNESS: This lady is comfortable. She has not had any symptoms. She is being evaluated by Cardiology and her pacemaker/ICD is to be interrogated. PHYSICAL EXAMINATION: CHEST: Clear. CARDIAC: Normal. VITAL SIGNS: She is afebrile. IMPRESSION: 1. Pacemaker/ICD failure. 2. Low back pain. 3. Coronary artery disease. 4. Defibrillation. PLAN: No change in program and await cardiology's recommendation. MMODL / IJN: [id number] /
--- NOTE | 2024-04-01 01:28 | PN ---
PROGRESS NOTE DATE OF SERVICE: 03/31/2024 CHIEF COMPLAINT: Pacemaker/ICD failure. HISTORY OF PRESENT ILLNESS: This lady is doing well. She is having no new problems. PHYSICAL EXAMINATION: CHEST: Clear. CARDIAC EXAM: Unchanged. ABDOMEN: Soft, nontender. IMPRESSION: 1. Pacemaker/ICD, failure. 2. Coronary artery disease. 3. Atrial fibrillation. PLAN: She is going to undergo changeover of her unit on Wednesday. MMODL / IJN: [id number] /
[2024-04-01 08:05] LABS: INR 3.1 (<1.2); Prothrombin Time 30.7 sec (10.0-12.5)
--- NOTE | 2024-04-01 08:49 | P.PN ---
Subjective Progress Note Date: 04/01/24 The patient was seen and evaluated this morning which she is asymptomatic in terms of chest pain or chest discomfort or shortness of breath but she developed left upper extremities with it seems to be cellulitis. She is going to undergo an AICD generator change this coming Wednesday. The stress test came in to be unremarkable. The physical examination is remarkable for stable vital signs with regular rate and rhythm and clear breathing sounds bilaterally and no edema was noted in the lower extremities Assessment Atypical chest pain/back pain has resolved History of cardiac arrest with V-fib History of nonischemic cardiomyopathy History of DVT Plan Continue the current medical regimen Follow-up with the patient Objective - Vital Signs Vital signs: Vital Signs Temp 98.2 F 04/01/24 04:00 Pulse 104 H 04/01/24 04:00 Resp 18 04/01/24 04:00 BP 119/72 04/01/24 04:00 Pulse Ox 95 04/01/24 04:00 FiO2 Intake & Output 03/31/24 04/01/24 04/01/24 18:59 06:59 18:59 Intake Total 702 Balance 702 Weight 122.6 kg Intake: Oral 702 Other: # Voids 2 # Bowel Movements 0 - Labs CBC & Chem 7: 03/28/24 12:44 03/28/24 12:44 Labs: Abnormal Lab Results - Last 24 Hours (Table) 04/01/24 Range/Units 06:42 PT 30.7 H (10.0-12.5) sec INR 3.1 H (<1.2)
[2024-04-01] MEDS: CEPHALEXIN 500 MG CAP PO SCH (13:24)
[2024-04-01] MEDS: MUPIROCIN 2% OINT 22 GM TUBE TOPICAL SCH (16:10)
[2024-04-01] MEDS: WARFARIN 0.5 MG TAB PO ONE (17:06)
[2024-04-02 08:22] LABS: INR 2.4 (<1.2); Prothrombin Time 23.9 sec (10.0-12.5)
--- NOTE | 2024-04-02 08:27 | P.PN ---
Subjective Progress Note Date: 04/02/24 The patient was seen and evaluated this morning which she is asymptomatic in terms of chest pain or chest discomfort or shortness of breath but she developed left upper extremities with it seems to be cellulitis. She is going to undergo an AICD generator change this coming Wednesday. The stress test came in to be unremarkable. The physical examination is remarkable for stable vital signs with regular rate and rhythm and clear breathing sounds bilaterally and no edema was noted in the lower extremities April 02, 2024 The patient was seen and evaluated this morning which she is asymptomatic and h emodynamically stable but she has been experiencing left upper extremity what it seems to be possible infection and currently infectious disease on the case but not seen the patient yet and also she is on antibiotic. With that being said and going to cancel the AICD generator change tomorrow not taking any risk of infection. Beside that the physical examination is remarkable for regular rhythm with a soft systolic murmur and clear breathing sounds bilaterally and no edema was noted in the lower extremities. Assessment Atypical chest pain/back pain has resolved History of cardiac arrest with V-fib History of nonischemic cardiomyopathy History of DVT Left upper extremity possible infection/cellulitis Plan Continue the current medical regimen Cancel the ICD generator change Infectious diseases on the case Follow-up with the patient Objective - Vital Signs Vital signs: Vital Signs Temp 98.1 F 04/02/24 08:00 Pulse 89 04/02/24 08:00 Resp 14 04/02/24 08:00 BP 108/66 04/02/24 08:00 Pulse Ox 94 L 04/02/24 08:00 FiO2 Intake & Output 04/01/24 04/02/24 04/02/24 18:59 06:59 18:59 Intake Total 1520 Balance 1520 Weight 125.2 kg Intake: Oral 1520 Other: # Voids 2 1 - Labs CBC & Chem 7: 03/28/24 12:44 03/28/24 12:44 Labs: Abnormal Lab Results - Last 24 Hours (Table) 04/02/24 Range/Units 07:41 PT 23.9 H (10.0-12.5) sec INR 2.4 H (<1.2)
[2024-04-02] MEDS ORDERED: VANCOMYCIN IV PER PHARMACY 1 EACH MISC MISCELLANE PRN ×2 (12:05→16:23)
[2024-04-02] MEDS: WARFARIN 2 MG TAB PO SCH (17:11)
[2024-04-02] MEDS: VANCOMYCIN 2,000 MG in SODIUM CHLORIDE 0.9% 500 ML 500 ML IVPB SCH (17:12)
--- NOTE | 2024-04-02 22:27 | P.CONS ---
History of Present Illness - Reason for Consult Consult date: 04/02/24 Phlebitis infection to the left arm Requesting physician: Gregory De Jesus - Chief Complaint Left arm pain swelling redness x 1 day - History of Present Illness Patient is a 58-year female past medical his significant for hypertension hyperlipidemia COPD NM PE cardiomyopathy in this patient who did have AICD defibrillator placement 6 years ago presented to hospital with shortness of breath and some back pain patient has been evaluated by cardiology team and the patient did have Lexiscan stress test pending reported negative patient apparently did have left antecubital fossa IV through which the dye was injected start very clear if any of it has been evaluated however the patient has not developed significant swelling redness and pain to the left upper extrem ity especially around the IV site which has been discontinued patient described the pain to be sharp almost 10 out of 10 in severity without any radiation with associated swelling and redness denies any foul-smelling drainage on presentation to the hospital the patient was afebrile and no fever have been recorded subsequently patient was not tachycardic or hypertensive not hypoxic no need for supplemental oxygen patient did have a white count of 5.2 on admission has not been repeated since then and the patient did have a creatinine 0.85 on 03/28/2024 since then she did have daily INR and no CBC or BMP patient was started on vancomycin infectious disease was consulted for further management co [place] for cellulitis to the left upper extremity Review of Systems Positive point and negatives has been mentioned in the HPI, complete review of systems was performed and all other systems are negative Past Medical History Past Medical History: Chest Pain / Angina, COPD, Hyperlipidemia, Hypertension, Myocardial Infarction (NM), Pneumonia, Pulmonary Embolus (PE) Additional Past Medical History / Comment(s): cardiomyopathy, PE (6yrs ago), brain aneursym [place] Last Myocardial Infarction Date:: 5 yrs ago History of Any Multi-Drug Resistant Organisms: None Reported Past Surgical History: AICD, Cholecystectomy, Heart Catheterization Additional Past Surgical History / Comment(s): AICD defibrillator placed 6 years ago, Right perforated eardrum Past Anesthesia/Blood Transfusion Reactions: No Reported Reaction Type of Cardiac Device: AICD Device Placement Date:: 2015 Past Psychological History: Anxiety, Depression Smoking Status: Former smoker Past Alcohol Use History: None Reported Past Drug Use History: None Reported - Past Family History Mother Family Medical History: Diabetes Mellitus, Hypertension Father Family Medical History: No Reported History Medications and Allergies Home Medications Medication Instructions Recorded Confirmed Type Spironolactone [Aldactone] 25 mg PO DAILY 08/15/20 03/28/24 History Amiodarone [Cordarone] 100 mg PO DAILY 06/20/21 03/28/24 History Multivitamins, Thera [Multivitamin 1 tab PO DAILY 09/05/22 03/28/24 History (formulary)] [place]-3/Dha/Epa/Fish Oil [Fish Oil 1 cap PO DAILY 05/08/23 03/28/24 History 1,000 mg Softgel] carvediloL [Coreg] 6.25 mg PO BID 05/08/23 03/28/24 History lisinopriL [Zestril] 2.5 mg PO DAILY 05/08/23 03/28/24 History Warfarin Sodium 6 mg PO HS 10/05/23 03/28/24 History Warfarin [Coumadin] 2 mg PO HS 10/05/23 03/28/24 History ALPRAZolam [Xanax] 0.25 mg PO TID PRN 03/28/24 03/28/24 History Fluticasone/Umeclidin/Vilanter 1 puff INHALATION RT-DAILY 03/28/24 03/28/24 History [Yolanda Ellipta 200-62.5-25] Allergies Allergy/AdvReac Type Severity Reaction Status Date / Time hydromorphone [From Dilaudid] AdvReac Nausea & Verified 03/28/24 15:34 Vomiting Physical Exam Vitals: Vital Signs Temp Pulse Pulse Resp BP BP Pulse Ox 04/02/24 12:00 97.9 F 88 16 112/73 92 L 04/02/24 08:00 98.1 F 89 14 108/66 94 L 04/02/24 04:00 98.1 F 93 16 107/68 91 L 04/02/24 02:00 93 16 04/02/24 00:00 98.3 F 92 16 106/66 91 L 04/01/24 20:00 98.5 F 89 16 107/69 92 L 04/01/24 16:11 70 04/01/24 16:01 68 04/01/24 16:00 91 18 93/68 96 04/01/24 14:00 91 18 Intake and Output 04/01/24 04/02/24 04/02/24 22:59 06:59 14:59 Intake Total 1160 Balance 1160 Intake: Oral 1160 Other: # Voids 2 1 Weight 125.2 kg GENERAL DESCRIPTION: Middle-aged female up in bed, no distress. No tachypnea or accessory muscle of respiration use. HEENT: Shows Pallor , no scleral icterus. Oral mucous membrane is dry. No pharyngeal erythema or thrush NECK: Trachea central, no thyromegaly. LUNGS: Unlabored breathing. Clear to auscultation anteriorly. No wheeze or crackle. HEART: S1, S2, regular rate and rhythm. No loud murmur ABDOMEN: Soft, no tenderness , guarding or rigidity, no organomegaly EXTREMITIES: Left upper extremity/antecubital fossa did have a pus point which was cultured did have surrounding swelling redness warm to touch SKIN: No rash, no masses palpable. NEUROLOGICAL: The patient is awake, alert, oriented x3, mood and affect normal. Results CBC & Chem 7: 03/28/24 12:44 03/28/24 12:44 Labs: Abnormal Lab Results - Last 24 Hours (Table) 04/02/24 Range/Units 07:41 PT 23.9 H (10.0-12.5) sec INR 2.4 H (<1.2) Assessment and Plan (1) Left arm cellulitis Current Visit: Yes Status: Acute Code(s): L03.114 - CELLULITIS OF LEFT UPPER LIMB SNOMED Code(s): 31192529588941146 Plan: 1patient with extensive cellulitis to upper extremity more likely related to possible infiltration over the left antecubital fossa IV which has been discontinued and no need for further gram-positive skin juana specially MRSA with the process drawn in the hospital 2-local culture has been obtained and will also obtain a blood culture he will the patient have been started on antibiotics but apparently the plan is for possible AICD generator battery replacement 3-marked pain of the redness 4-vancomycin pharmacy to dose target trough of 15 while watching kidney function and Vanco trough closely We will follow on clinical condition and cultures to further adjust medication if needed Thank you for this consultation we will follow the patient along with you Dictation was produced using [employer] software. please excuse any grammatical, word or spelling errors. Time with Patient: Greater than 30
[2024-04-03] MEDS ORDERED: VANCOMYCIN 1,250 MG in SODIUM CHLORIDE 0.9% 250 ML IVPB SCH (06:00)
[2024-04-03 08:32] LABS: INR 2.1 (<1.2); Prothrombin Time 21.1 sec (10.0-12.5)
[2024-04-03 08:37] LABS: ALT 31 U/L (4-34); AST 41 U/L (14-36); African American GFR (CKD) 90 (>60 ml/min/1.73 sqM); Albumin 3.8 g/dL (3.5-5.0); Alkaline Phosphatase 92 U/L (38-126); Anion Gap 9 mmol/L; Blood Urea Nitrogen 15 mg/dL (7-17); Calcium 8.8 mg/dL (8.4-10.2); Carbon Dioxide 24 mmol/L (22-30); Chloride 104 mmol/L (98-107); Glucose 119 mg/dL (74-99); Non-African American GFR(CKD) 78 (>60 ml/min/1.73 sqM); Potassium 4.4 mmol/L (3.5-5.1); Sodium 137 mmol/L (137-145); Total Bilirubin 0.8 mg/dL (0.2-1.3); Total Protein 6.5 g/dL (6.3-8.2)
[2024-04-03 08:39] LABS: Anisocytosis Slight; HCT 35.6 % (34.0-46.0); HGB 12.2 gm/dL (11.4-16.0); MCH 29.1 pg (25.0-35.0); MCHC 34.3 g/dL (31.0-37.0); MCV 84.9 fL (80.0-100.0); Mean Platelet Volume 9.8; Poikilocytosis Slight
[2024-04-03 08:50] LABS: Eosinophils # (M) 0.32 k/uL (0-0.7); Lymphocytes # (M) 1.28 k/uL (1.0-4.8); Monocytes # (M) 0.32 k/uL (0-1.0); Neutrophils # (M) 6.08 k/uL (1.3-7.7); Neutrophils % (M) 76 %; Nucleated Red Blood Cells 0 /100 WBC (0-0); Platelet Count 176 k/uL (150-450); Total Cells Counted 100
[2024-04-03 09:32] LABS: C Reactive Protein 5.1 mg/dL (<1.0)
--- NOTE | 2024-04-03 12:27 | P.PN ---
Subjective Progress Note Date: 04/03/24 Principal diagnosis: Reason for follow-up is left upper extremity cellulitis Patient is a 58-year female past medical his significant for hypertension hyperlipidemia COPD [place] PE cardiomyopathy presented hospital shortness of breath did have a left arm IV site infiltration/phlebitis with cellulitis prompted this consultation. On today's evaluation that is 04/03/2024, patient has been afebrile, patient is breathing comfortably and is currently on room air, patient denies having any significant cough no chest pain shortness of breath, patient denies nausea vomiting or diarrhea and no abdominal pain, pain and swelling to left upper extremity has slightly decreased. Patient white count is 8.0, creatinine 0.83 cultures are currently pending Objective - Vital Signs Vital signs: Vital Signs Temp 97.7 F 04/03/24 11:38 Pulse 85 04/03/24 11:38 Resp 18 04/03/24 11:38 BP 111/74 04/03/24 11:38 Pulse Ox 96 04/03/24 11:38 FiO2 Intake & Output 04/02/24 04/03/24 04/03/24 18:59 06:59 18:59 Intake Total 1638 240 Balance 1638 240 Weight 126.4 kg Intake: IV 10 Invasive Line 4 10 Oral 1628 240 Other: # Voids 1 - Exam GENERAL DESCRIPTION: An elderly male lying in bed in no distress RESPIRATORY SYSTEM: Unlabored breathing , decreased breath sounds at bases HEART: S1 S2 regular rate and rhythm , ABDOMEN: Soft , no tenderness EXTREMITIES: Left upper extremity swelling redness slightly decreased - Labs CBC & Chem 7: 04/03/24 07:47 04/03/24 07:47 Labs: Abnormal Lab Results - Last 24 Hours (Table) 04/03/24 04/03/24 04/03/24 Range/Units 07:47 07:47 07:47 RDW 16.0 H (11.5-15.5) % PT 21.1 H (10.0-12.5) sec INR 2.1 H (<1.2) Glucose 119 H (74-99) mg/dL AST 41 H (14-36) U/L C-Reactive Protein 5.1 H (<1.0) mg/dL Assessment and Plan (1) Left arm cellulitis Current Visit: Yes Status: Acute Code(s): L03.114 - CELLULITIS OF LEFT UPPER LIMB SNOMED Code(s): 30794309520305166 Plan: 1patient with extensive cellulitis to upper extremity more likely related to possible infiltration over the left antecubital fossa IV which has been discontinued and no need for further gram-positive skin juana specially MRSA with the process drawn in the hospital 2-local culture as well as blood culture are currently pending 3-patient did have some improvement to the left upper extremity swelling redness continue vancomycin pharmacy to dose target trough of 15 while watching kidney function and Vanco trough closely Dictation was produced using [employer] dictation software. please excuse any grammatical, word or spelling errors. Time with Patient: Less than 30
--- NOTE | 2024-04-03 13:41 | P.PN ---
Subjective HISTORY OF PRESENT ILLNESS: The patient was seen and evaluated this morning which she is asymptomatic in terms of chest pain or chest discomfort or shortness of breath but she developed left upper extremities with it seems to be cellulitis. She is going to undergo an AICD generator change this coming Wednesday. The stress test came in to be unre markable. The physical examination is remarkable for stable vital signs with regular rate and rhythm and clear breathing sounds bilaterally and no edema was noted in the lower extremities April 02, 2024 The patient was seen and evaluated this morning which she is asymptomatic and hemodynamically stable but she has been experiencing left upper extremity what it seems to be possible infection and currently infectious disease on the case but not seen the patient yet and also she is on antibiotic. With that being said and going to cancel the AICD generator change tomorrow not taking any risk of infection. Beside that the physical examination is remarkable for regular rhythm with a soft systolic murmur and clear breathing sounds bilaterally and no edema was noted in the lower extremities. 04/03/2024 Patient examined this morning at the bedside. Patient currently denies any chest pain or pressure. She denies any shortness of breath. Vital signs are stable. She remains on antibiotics for left upper extremity cellulitis PHYSICAL EXAM: VITAL SIGNS: Reviewed. GENERAL: Well-developed in no acute distress. NECK: Supple. No JVD or thyromegaly LUNGS: Respirations even and unlabored. Lungs essentially clear to auscultation bilaterally. HEART: Regular rate and rhythm. S1 and S2 heard. EXTREMITIES: Normal range of motion. No clubbing or cyanosis. Peripheral pulses intact. No lower extremity edema. Left upper extremity erythema. ASSESSMENT: Atypical chest pain/back pain; post Mary negative for ischemia Left upper extremity cellulitis History of cardiac arrest with V-fib History of nonischemic cardiomyopathy History of ICD implantation, [employer] History of DVT/PE, on warfarin COPD PLAN: Continue antibiotics per infectious disease Nursing to interrogate patient's ICD again as initial report is not in the paper chart to determine if ICD battery is already or if there is some time remaining. If ICD battery is , patient will require a Lifevest at discharge Eventual ICD generator change when patients cellulitis has resolved Further recommendations pending patient course Nurse practitioner note has been reviewed by physician. Signing provider agrees with the documented findings, assessment, and plan of care documented by BIOPSYCHOLOGIST as a scribe. Objective - Vital Signs Vital signs: Vital Signs Temp 97.7 F 04/03/24 11:38 Pulse 85 04/03/24 11:38 Resp 18 04/03/24 11:38 BP 111/74 04/03/24 11:38 Pulse Ox 96 04/03/24 11:38 FiO2 Intake & Output 04/02/24 04/03/24 04/03/24 18:59 06:59 18:59 Intake Total 1638 240 Balance 1638 240 Weight 126.4 kg Intake: IV 10 Invasive Line 4 10 Oral 1628 240 Other: # Voids 1 - Labs CBC & Chem 7: 04/03/24 07:47 04/03/24 07:47 Labs: Abnormal Lab Results - Last 24 Hours (Table) 04/03/24 04/03/24 04/03/24 Range/Units 07:47 07:47 07:47 RDW 16.0 H (11.5-15.5) % PT 21.1 H (10.0-12.5) sec INR 2.1 H (<1.2) Glucose 119 H (74-99) mg/dL AST 41 H (14-36) U/L C-Reactive Protein 5.1 H (<1.0) mg/dL
[2024-04-04] MEDS: ACETAMINOPHEN TAB 325 MG TAB PO PRN (06:07)
--- NOTE | 2024-04-04 07:35 | P.PN ---
Progress Note - Text Review of past history Admitted with atypical chest pain Lexiscan stress test did not show any evidence for ischemia Device either at ANNETTE or EOL, awaiting interrogation However the patient has extensive left arm cellulitis Presumptive MRSA in the wound culture This significantly increases her risk of infection at generator change VF arrest many years back when the BiV ICD was implanted. At that time her left ventricular ejection fraction was severely reduced Left ventricular ejection fraction at about 45% on this admission She is also had a history of atrial fibrillation for which low-dose amiodarone had been used to suppress A-fib with RVR and inappropriate shocks maintain sinus rhythm Current continue IV antibiotics until resolution of the infection Recommend quadruple therapy for heart failure, switching to Entresto, maximizing carvedilol, reinstitution of spironolactone and Farxiga Resume 100 mg of amiodarone p.o. daily device interrogation
[2024-04-04 08:00] LABS: African American GFR (CKD) >90 (>60 ml/min/1.73 sqM); Non-African American GFR(CKD) 90 (>60 ml/min/1.73 sqM)
[2024-04-04 08:18] LABS: INR 2.6 (<1.2); Prothrombin Time 25.3 sec (10.0-12.5)
[2024-04-04] MEDS: IBUPROFEN 600 MG TAB PO SCH (09:08)
[2024-04-04] MEDS: DAPAGLIFLOZIN PROPANEDIOL 10 MG TABLET PO SCH (09:08)
[2024-04-04 11:09] VITALS: BMI 42.7
--- NOTE | 2024-04-04 12:13 | P.PN ---
Subjective Progress Note Date: 04/04/24 Principal diagnosis: Reason for follow-up is left upper extremity cellulitis Patient is a 58-year female past medical his significant for hypertension hyperlipidemia COPD OR PE cardiomyopathy presented hospital shortness of breath did have a left arm IV site infiltration/phlebitis with cellulitis prompted this consultation. On today's evaluation that is 04/04/2024, Patient is afebrile this morning patient denies having any chest pain shortness of breath or cough, the patient is breathing comfortably and currently on room air, patient denies any abdominal pain no diarrhea no nausea no vomiting, pain to the left upper arm has slightly decreased in intensity. The patient white count is 8.0, creatinine 0.74 cultures are growing presumptive MRSA Objective - Vital Signs Vital signs: Vital Signs Temp 98.2 F 04/03/24 20:07 Pulse 82 04/04/24 10:51 Resp 18 04/04/24 10:51 BP 114/56 04/04/24 08:55 Pulse Ox 94 L 04/04/24 08:55 FiO2 Intake & Output 04/03/24 04/04/24 04/04/24 18:59 06:59 18:59 Intake Total 240 1620 358 Balance 240 1620 358 Weight 127.6 kg 127.6 kg Intake: Oral 240 1620 358 Other: # Voids 2 - Exam GENERAL DESCRIPTION: An elderly male lying in bed in no distress RESPIRATORY SYSTEM: Unlabored breathing , decreased breath sounds at bases HEART: S1 S2 regular rate and rhythm , ABDOMEN: Soft , no tenderness EXTREMITIES: Left upper extremity swelling redness slightly decreased - Labs CBC & Chem 7: 04/03/24 07:47 04/04/24 07:06 Labs: Abnormal Lab Results - Last 24 Hours (Table) 04/04/24 Range/Units 07:06 PT 25.3 H (10.0-12.5) sec INR 2.6 H (<1.2) Microbiology - Last 24 Hours (Table) 04/02/24 16:00 Gram Stain - Preliminary Arm - Left Wound Culture - Preliminary Presumptive MRSA Assessment and Plan (1) Left arm cellulitis Current Visit: Yes Status: Acute Code(s): L03.114 - CELLULITIS OF LEFT UPPER LIMB SNOMED Code(s): 53303987006793011 Plan: 1patient with extensive cellulitis to upper extremity more likely related to possible infiltration over the left antecubital fossa IV which has been discontinued and no need for further gram-positive skin juana specially MRSA with the process drawn in the hospital 2-local culture currently growing MRSA, blood culture are currently pending 3-patient to s continue vancomycin pharmacy to dose target trough of 15 while watching kidney function while waiting for sensitivities on the MRSA Dictation was produced using [email or web address] dictation software. please excuse any grammatical, word or spelling errors. Time with Patient: Less than 30
[2024-04-04] MEDS: polyethylene glycoL 3350 17 GM POWD.PACK PO SCH ×2 (12:42→21:15)
--- NOTE | 2024-04-04 12:53 | P.PN ---
Subjective HISTORY OF PRESENT ILLNESS: The patient was seen and evaluated this morning which she is asymptomatic in terms of chest pain or chest discomfort or shortness of breath but she developed left upper extremities with it seems to be cellulitis. She is going to undergo an AICD generator change this coming Wednesday. The stress test came in to be unre markable. The physical examination is remarkable for stable vital signs with regular rate and rhythm and clear breathing sounds bilaterally and no edema was noted in the lower extremities April 02, 2024 The patient was seen and evaluated this morning which she is asymptomatic and hemodynamically stable but she has been experiencing left upper extremity what it seems to be possible infection and currently infectious disease on the case but not seen the patient yet and also she is on antibiotic. With that being said and going to cancel the AICD generator change tomorrow not taking any risk of infection. Beside that the physical examination is remarkable for regular rhythm with a soft systolic murmur and clear breathing sounds bilaterally and no edema was noted in the lower extremities. 04/03/2024 Patient examined this morning at the bedside. Patient currently denies any chest pain or pressure. She denies any shortness of breath. Vital signs are stable. She remains on antibiotics for left upper extremity cellulitis 04/04/2024 Patient examined this morning at the bedside. Patient currently denies chest pain or pressure. She denies shortness of breath. Wound culture positive for presumptive MRSA. Patient does complain of discomfort in her arm. PHYSICAL EXAM: VITAL SIGNS: Reviewed. GENERAL: Well-developed in no acute distress. NECK: Supple. No JVD or thyromegaly LUNGS: Respirations even and unlabored. Lungs essentially clear to auscultation bilaterally. HEART: Regular rate and rhythm. S1 and S2 heard. EXTREMITIES: Normal range of motion. No clubbing or cyanosis. Peripheral pulses intact. No lower extremity edema. Left upper extremity erythema. ASSESSMENT: Atypical chest pain/back pain; post Mary negative for ischemia Left upper extremity cellulitis History of cardiac arrest with V-fib History of nonischemic cardiomyopathy History of ICD implantation, [employer] History of DVT/PE, on warfarin COPD PLAN: Continue antibiotics per infectious disease Patient's device was interrogated this morning. Per device rep, patient's battery is depleted Patient will require a Lifevest at discharge due to ICD battery depleted Eventual ICD generator change when patients cellulitis has resolved Further recommendations pending patient course Nurse practitioner note has been reviewed by physician. Signing provider agrees with the documented findings, assessment, and plan of care documented by PARKING LOT SUPERVISOR as a scribe. Objective - Vital Signs Vital signs: Vital Signs Temp 98.2 F 04/03/24 20:07 Pulse 80 04/04/24 12:41 Resp 18 04/04/24 12:41 BP 113/55 04/04/24 12:41 Pulse Ox 97 04/04/24 12:41 FiO2 Intake & Output 04/03/24 04/04/24 04/04/24 18:59 06:59 18:59 Intake Total 240 1620 358 Balance 240 1620 358 Weight 127.6 kg 127.6 kg Intake: Oral 240 1620 358 Other: # Voids 2 - Labs CBC & Chem 7: 04/03/24 07:47 04/04/24 07:06 Labs: Abnormal Lab Results - Last 24 Hours (Table) 04/04/24 Range/Units 07:06 PT 25.3 H (10.0-12.5) sec INR 2.6 H (<1.2) Microbiology - Last 24 Hours (Table) 04/02/24 16:00 Gram Stain - Preliminary Arm - Left Wound Culture - Preliminary Presumptive MRSA
[2024-04-04] MEDS: WARFARIN 2 MG TAB PO ONE (16:46)
--- NOTE | 2024-04-04 21:43 | PN ---
PROGRESS NOTE DATE OF SERVICE: 04/01/2024 CHIEF COMPLAINT: Low back pain and pacemaker/ICD failure. HISTORY OF PRESENT ILLNESS: This lady has developed cellulitis in the left arm, where she had an IV, this is being addressed. It was planned that Wednesday she would undergo battery change. PHYSICAL EXAMINATION: GENERAL: She is afebrile. The arm is quite painful. CHEST: Clear. CARDIAC: Reveals her atrial fibrillation. She does have significant cellulitis in the left antecubital space extending up into the biceps and down into the forearm area. IMPRESSION: 1. Pacemaker/ICD failure. 2. Cellulitis of the left arm from IV site. 3. Atrial fibrillation. 4. History of coronary artery disease and cardiomyopathy with heart failure. PLAN: We will start her on antibiotics orally and topically. MMODL / IJN: [id number] /
[2024-04-05 05:04] LABS: African American GFR (CKD) 78 (>60 ml/min/1.73 sqM); Non-African American GFR(CKD) 68 (>60 ml/min/1.73 sqM)
[2024-04-05 05:22] LABS: INR 2.7 (<1.2); Prothrombin Time 26.6 sec (10.0-12.5)
[2024-04-05] MEDS: VANCOMYCIN TROUGH DUE 1 EACH MISC MISCELLANE ONE (06:00)
--- NOTE | 2024-04-05 12:45 | P.PN ---
Subjective HISTORY OF PRESENT ILLNESS: The patient was seen and evaluated this morning which she is asymptomatic in terms of chest pain or chest discomfort or shortness of breath but she developed left upper extremities with it seems to be cellulitis. She is going to undergo an AICD generator change this coming Wednesday. The stress test came in to be unre markable. The physical examination is remarkable for stable vital signs with regular rate and rhythm and clear breathing sounds bilaterally and no edema was noted in the lower extremities April 02, 2024 The patient was seen and evaluated this morning which she is asymptomatic and hemodynamically stable but she has been experiencing left upper extremity what it seems to be possible infection and currently infectious disease on the case but not seen the patient yet and also she is on antibiotic. With that being said and going to cancel the AICD generator change tomorrow not taking any risk of infection. Beside that the physical examination is remarkable for regular rhythm with a soft systolic murmur and clear breathing sounds bilaterally and no edema was noted in the lower extremities. 04/03/2024 Patient examined this morning at the bedside. Patient currently denies any chest pain or pressure. She denies any shortness of breath. Vital signs are stable. She remains on antibiotics for left upper extremity cellulitis 04/04/2024 Patient examined this morning at the bedside. Patient currently denies chest pain or pressure. She denies shortness of breath. Wound culture positive for presumptive MRSA. Patient does complain of discomfort in her arm. 04/05/2024 Patient without complaints of chest pain or pressure. No complaints of shortness of breath. Vital signs are stable. Patient to receive LifeVest today. PHYSICAL EXAM: VITAL SIGNS: Reviewed. GENERAL: Well-developed in no acute distress. NECK: Supple. No JVD or thyromegaly LUNGS: Respirations even and unlabored. Lungs essentially clear to auscultation bilaterally. HEART: Regular rate and rhythm. S1 and S2 heard. EXTREMITIES: Normal range of motion. No clubbing or cyanosis. Peripheral pulses intact. No lower extremity edema. Left upper extremity erythema. ASSESSMENT: Atypical chest pain/back pain; post Mary negative for ischemia Left upper extremity cellulitis History of cardiac arrest with V-fib History of nonischemic cardiomyopathy History of ICD implantation, [employer] History of DVT/PE, on warfarin COPD PLAN: Continue antibiotics per infectious disease Patient to receive LifeVest today due to ICD battery depleted Eventual ICD generator change when patients cellulitis has resolved We will sign off. Please reconsult if needed. Nurse practitioner note has been reviewed by physician. Signing provider agrees with the documented findings, assessment, and plan of care documented by ELEVATOR WORKER as a scribe. Objective - Vital Signs Vital signs: Vital Signs Temp 97.7 F 04/05/24 11:30 Pulse 74 04/05/24 11:30 Resp 18 04/05/24 11:30 BP 110/56 04/05/24 11:30 Pulse Ox 95 04/05/24 11:30 FiO2 Intake & Output 04/04/24 04/05/24 04/05/24 18:59 06:59 18:59 Intake Total 1078 120 Balance 1078 120 Weight 127.6 kg Intake: Oral 1078 120 Other: # Voids 1 - Labs CBC & Chem 7: 04/03/24 07:47 04/05/24 03:53 Labs: Abnormal Lab Results - Last 24 Hours (Table) 04/05/24 Range/Units 03:53 PT 26.6 H (10.0-12.5) sec INR 2.7 H (<1.2) Microbiology - Last 24 Hours (Table) 04/02/24 16:00 Gram Stain - Final Arm - Left Wound Culture - Final Methicillin resist S. aureus 04/03/24 07:47 Blood Culture - Preliminary Blood
[2024-04-05] MEDS: WARFARIN 5 MG TAB PO ONE (17:14)
[2024-04-05] MEDS: VANCOMYCIN 1,750 MG in SODIUM CHLORIDE 0.9% 500 ML 500 ML IVPB SCH (18:03)
--- NOTE | 2024-04-05 21:45 | PN ---
PROGRESS NOTE DATE OF SERVICE: 04/02/2024 CHIEF COMPLAINT: Pacemaker failure and cellulitis of the left arm. HISTORY OF PRESENT ILLNESS: This lady has developed a significant cellulitis of the left arm involving the antecubital space on the biceps as well as forearm areas. It is very intense, red, indurated and affecting her ability to move her elbow. This is likely MRSA. PHYSICAL EXAMINATION: CHEST: Clear. CARDIAC: Reveals her atrial fibrillation. EXTREMITIES: She has an intense cellulitis from her IV site in the antecubital space extending up into the biceps area and down into the forearm. She cannot fully extend and she can only flex to about 50 degrees. IMPRESSION: Cellulitis of the left arm. PLAN: IV vancomycin and 3rd generation cephalosporins. Her procedure on Wednesday will likely be canceled. MMODL / IJN: [id number] /
--- NOTE | 2024-04-05 22:15 | PN ---
PROGRESS NOTE DATE OF SERVICE: 04/03/2024 CHIEF COMPLAINT: Pacemaker failure and cellulitis of the left arm. HISTORY OF PRESENT ILLNESS: This lady's arm is still very intensely painful, red, swollen and demonstrating reduced ability to flex and extend. PHYSICAL EXAMINATION: VITAL SIGNS: She is afebrile. CHEST: Clear. CARDIAC: Unchanged. IMPRESSION: 1. Pacemaker/ICD failure. 2. Coronary artery disease. 3. Atrial fibrillation. 4. 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 5. Cellulitis of the left arm. PLAN: Continue with IV fluids and antibiotics. Procedure for Wednesday has been canceled. MMODL / IJN: [id number] /
--- NOTE | 2024-04-05 22:55 | PN ---
PROGRESS NOTE DATE OF SERVICE: 04/04/2024 CHIEF COMPLAINT: Cellulitis of the left arm and pacemaker failure. HISTORY OF PRESENT ILLNESS: This lady's arm is improving slowly. It is less red and less edematous. She is having trouble with constipation. PHYSICAL EXAMINATION: GENERAL: Color is good. CHEST: Clear. CARDIAC: Unchanged. ABDOMEN: Soft and protuberant. EXTREMITIES: The left arm is improving. The cellulitis is less intense and less tender and painful. IMPRESSION: 1. Status post pacemaker/ICD failure. 2. Atrial fibrillation. 3. History of coronary artery disease. 4. History of intracranial bleed. 5. Cellulitis of the left arm. 6. Constipation. PLAN: MiraLAX will be prescribed and we will continue her on IV vancomycin and cephalosporins for another day or 2. MMODL / IJN: [id number] /
--- NOTE | 2024-04-05 23:16 | PN ---
PROGRESS NOTE DATE OF SERVICE: 04/05/2024 CHIEF COMPLAINT: Pacemaker failure with cellulitis in the left arm. HISTORY OF PRESENT ILLNESS: This lady's cellulitis on the left arm is improving, but she still has a significant amount of pain and trouble with full range of motion. She has had no fever or chills. PHYSICAL EXAMINATION: CHEST: Clear. CARDIAC: Unchanged. PLAN: The area of redness and induration in the left arm is much improved, but it was felt that she should probably be in the hospital for another 24 hours on IV vancomycin. MMODL / IJN: [id number] /
[2024-04-06 06:25] LABS: INR 2.5 (<1.2); Prothrombin Time 24.4 sec (10.0-12.5)
--- NOTE | 2024-04-06 07:37 | P.PN ---
Subjective Progress Note Date: 04/05/24 Principal diagnosis: Reason for follow-up is left upper extremity cellulitis Patient is a 58-year female past medical his significant for hypertension hyperlipidemia COPD [place] PE cardiomyopathy presented hospital shortness of breath did have a left arm IV site infiltration/phlebitis with cellulitis prompted this consultation. On today's evaluation that is 04/05/2024,the patient denies any fever or any chills, patient is breathing comfortably on room air, the patient denies chest pain shortness of breath and no significant cough, patient denies abdominal pain, no nausea vomiting or diarrhea. Patient is still complaining of pain to the left upper extremity overall swelling redness has decreased and no drainage. Patient did have a INR of 2.5 creatinine 0.93 local culture with MRSA blood culture has been negative Objective - Vital Signs Vital signs: Vital Signs Temp 97.7 F 04/05/24 11:30 Pulse 74 04/05/24 11:30 Resp 18 04/05/24 11:30 BP 110/56 04/05/24 11:30 Pulse Ox 95 04/05/24 11:30 FiO2 Intake & Output 04/04/24 04/05/24 04/05/24 18:59 06:59 18:59 Intake Total 1078 120 Balance 1078 120 Weight 127.6 kg Intake: Oral 1078 120 Other: # Voids 1 - Exam GENERAL DESCRIPTION: An elderly male lying in bed in no distress RESPIRATORY SYSTEM: Unlabored breathing , decreased breath sounds at bases HEART: S1 S2 regular rate and rhythm , ABDOMEN: Soft , no tenderness EXTREMITIES: Left upper extremity swelling redness slightly decreased - Labs CBC & Chem 7: 04/03/24 07:47 04/05/24 03:53 Labs: Abnormal Lab Results - Last 24 Hours (Table) 04/05/24 Range/Units 03:53 PT 26.6 H (10.0-12.5) sec INR 2.7 H (<1.2) Microbiology - Last 24 Hours (Table) 04/02/24 16:00 Gram Stain - Final Arm - Left Wound Culture - Final Methicillin resist S. aureus 04/03/24 07:47 Blood Culture - Preliminary Blood Assessment and Plan (1) Left arm cellulitis Current Visit: Yes Status: Acute Code(s): L03.114 - CELLULITIS OF LEFT UPPER LIMB SNOMED Code(s): 52433947317073213 Plan: 1patient with extensive cellulitis to upper extremity more likely related to possible infiltration over the left antecubital fossa IV which has been discontinued and no need for further gram-positive skin juana specially MRSA w ith the process drawn in the hospital 2-local culture currently growing MRSA, blood culture has been negative so far 3-patient to continue with vancomycin pharmacy to dose target trough of 15 while while inpatient will be able to transition to oral Bactrim DS on discharge especially if the blood culture remains to be negative Dictation was produced using [employer] dictation software. please excuse any grammatical, word or spelling errors.
[2024-04-06] MEDS: WARFARIN 7.5 MG TAB PO ONE (16:51)
--- NOTE | 2024-04-06 22:36 | P.PN ---
Subjective Progress Note Date: 04/06/24 Principal diagnosis: Reason for follow-up is left upper extremity cellulitis Patient is a 58-year female past medical his significant for hypertension hyperlipidemia COPD [place] PE cardiomyopathy presented hospital shortness of breath did have a left arm IV site infiltration/phlebitis with cellulitis prompted this consultation. On today's evaluation that is 04/06/2024,the patient remains to be afebrile, patient is on room air not requiring supplemental oxygen and denies any shortness of breath no chest pain or cough.Patient denies having any nausea or vomiting, no abdominal pain and no diarrhea has been reported, the patient pain and swelling to the left lower extremity has decreased in intensity. Patient did have a INR of 2.5 Vanco trough for 20.2 blood culture have been negative Objective - Vital Signs Vital signs: Vital Signs Temp 97.8 F 04/06/24 16:04 Pulse 82 04/06/24 16:04 Resp 20 04/06/24 16:04 BP 117/56 04/06/24 16:04 Pulse Ox 94 L 04/06/24 16:04 FiO2 Intake & Output 04/05/24 04/06/24 04/06/24 18:59 06:59 18:59 Intake Total 1979 1939 Output Total 3 Balance 1979 Weight 127.2 kg Intake: Intake, IV Titration 500 500 Amount Vancomycin 1,750 mg In 500 500 Sodium Chloride 0.9% 500 ml 500 ml @ 167 mls/hr IVPB Q12H [facility] Rx#: [id number] Oral 1480 1440 Output: Stool 3 Other: # Voids 2 1 # Bowel Movements 3 - Exam GENERAL DESCRIPTION: An elderly male lying in bed in no distress RESPIRATORY SYSTEM: Unlabored breathing , decreased breath sounds at bases HEART: S1 S2 regular rate and rhythm , ABDOMEN: Soft , no tenderness EXTREMITIES: Left upper extremity swelling redness slightly decreased - Labs CBC & Chem 7: 04/03/24 07:47 04/05/24 03:53 Labs: Abnormal Lab Results - Last 24 Hours (Table) 04/06/24 Range/Units 06:03 PT 24.4 H (10.0-12.5) sec INR 2.5 H (<1.2) Microbiology - Last 24 Hours (Table) 04/03/24 07:47 Blood Culture - Preliminary Blood Assessment and Plan (1) Left arm cellulitis Current Visit: Yes Status: Acute Code(s): L03.114 - CELLULITIS OF LEFT UPPER LIMB SNOMED Code(s): 69508740813131013 Plan: 1patient with extensive cellulitis to upper extremity more likely related to possible infiltration over the left antecubital fossa IV which has been discontinued and no need for further gram-positive skin juana specially MRSA with the process drawn in the hospital 2-local culture currently growing MRSA, blood culture has been negative so far 3-patient left upper extremity swelling redness has slightly decreased intensity, will continue with vancomycin pharmacy to dose target trough of 15 while while inpatient will be able to transition to oral Bactrim DS on discharge, question concern answered Dictation was produced using [employer] dictation software. please excuse any grammatical, word or spelling errors. Time with Patient: Less than 30
[2024-04-07 01:12] VITALS: RESP 16
[2024-04-07 08:32] LABS: African American GFR (CKD) 77 (>60 ml/min/1.73 sqM); Anion Gap 9 mmol/L; Blood Urea Nitrogen 11 mg/dL (7-17); Calcium 9.3 mg/dL (8.4-10.2); Carbon Dioxide 26 mmol/L (22-30); Chloride 105 mmol/L (98-107); Glucose 95 mg/dL (74-99); Non-African American GFR(CKD) 67 (>60 ml/min/1.73 sqM); Potassium 4.4 mmol/L (3.5-5.1); Sodium 140 mmol/L (137-145)
[2024-04-07 08:42] LABS: INR 2.2 (<1.2); Prothrombin Time 22.3 sec (10.0-12.5)
[2024-04-07] MEDS: VANCOMYCIN TROUGH DUE 1 EACH MISC MISCELLANE ONE (10:01)
--- NOTE | 2024-04-07 12:39 | P.PN ---
Subjective Progress Note Date: 04/07/24 Principal diagnosis: Reason for follow-up is left upper extremity cellulitis Patient is a 58-year female past medical his significant for hypertension hyperlipidemia COPD [place] PE cardiomyopathy presented hospital shortness of breath did have a left arm IV site infiltration/phlebitis with cellulitis prompted this consultation. On today's evaluation that is 04/07/2024, the patient continues to be afebrile, the patient is on room air and breathing comfortably, the Pt denies having any chest pain or cough, the patient denies having any abdominal pain no vomiting or any diarrhea patient left upper extremity swelling redness has improved and no drainage patient mention feeling better wants to go home. Patient did have INR of 2.2 creatinine 0.94 blood culture have been negative Objective - Vital Signs Vital signs: Vital Signs Temp 97.5 F L 04/07/24 08:58 Pulse 72 04/07/24 08:58 Resp 16 04/07/24 08:58 BP 122/61 04/07/24 08:58 Pulse Ox 91 L 04/07/24 08:58 FiO2 Intake & Output 04/06/24 04/07/24 04/07/24 18:59 06:59 18:59 Intake Total 2420 250 Balance 2420 250 Weight 127.8 kg Intake: IV 10 Invasive Line 7 10 Intake, IV Titration 500 Amount Vancomycin 1,750 mg In 500 Sodium Chloride 0.9% 500 ml 500 ml @ 167 mls/hr IVPB Q12H [facility] Rx#: [id number] Oral 1920 240 Other: # Voids 2 - Exam GENERAL DESCRIPTION: An elderly male lying in bed in no distress RESPIRATORY SYSTEM: Unlabored breathing , decreased breath sounds at bases HEART: S1 S2 regular rate and rhythm , ABDOMEN: Soft , no tenderness EXTREMITIES: Left upper extremity swelling redness slightly decreased - Labs CBC & Chem 7: 04/03/24 07:47 04/07/24 07:30 Labs: Abnormal Lab Results - Last 24 Hours (Table) 04/07/24 Range/Units 07:30 PT 22.3 H (10.0-12.5) sec INR 2.2 H (<1.2) Microbiology - Last 24 Hours (Table) 04/03/24 07:47 Blood Culture - Preliminary Blood Assessment and Plan (1) Left arm cellulitis Current Visit: Yes Status: Acute Code(s): L03.114 - CELLULITIS OF LEFT UPPER LIMB SNOMED Code(s): 81767497105643039 (2) MRSA (methicillin resistant staph aureus) culture positive Current Visit: Yes Status: Acute Code(s): Z22.322 - CARRIER OR SUSPECTED CARRIER OF METHICILLIN RESIS STAPH SNOMED Code(s): 946480259 Plan: 1patient with extensive cellulitis to upper extremity more likely related to possible infiltration over the left antecubital fossa IV which has been discontinued and no need for further gram-positive skin juana specially MRSA with the process drawn in the hospital 2-local culture did grow MRSA, blood culture has been negative so far 3-patient left upper extremity swelling redness has decreased in intensity we will continue vancomycin while inpatient and short course of Bactrim DS on discharge, and INR to monitor closely while on Bactrim in the outpatient setting Dictation was produced using [employer] dictation software. please excuse any grammatical, word or spelling errors. Time with Patient: Less than 30
[2024-04-07 15:36] VITALS: BP 121/61; PULSE 80; TEMP 97.6
[2024-04-07] MEDS: WARFARIN 2 MG TAB PO ONE (16:12)
[2024-04-07] MEDS ORDERED: SULFAMETHOX-TMP 800-160MG 1 EACH TAB PO SCH (21:00)
--- NOTE | 2024-04-08 10:07 | PN ---
PROGRESS NOTE DATE OF SERVICE: 04/06/2024 CHIEF COMPLAINT: MRSA cellulitis of the left antecubital space in the left arm. HISTORY OF PRESENT ILLNESS: This lady's arm is doing better. Pain and swelling are improved. She will be kept on IV vancomycin for another day or 2. PHYSICAL EXAMINATION: VITAL SIGNS: She is afebrile. CHEST: Clear. CARDIAC: Unchanged. EXTREMITIES: Cellulitis is slowly receding. There is no more drainage from the puncture site. IMPRESSION: 1. Methicillin-resistant Staphylococcus aureus cellulitis of the left arm. 2. Pacemaker failure. 3. Coronary artery disease. 4. Atrial fibrillation. 5. Previous intracranial bleed. PLAN: Continue with another day or 2 of vancomycin. MMODL / IJN: [id number] /
--- NOTE | 2024-04-10 09:55 | DS ---
DISCHARGE SUMMARY pacemaker failure. HISTORY OF PRESENT ILLNESS AND PHYSICAL EXAM: Details of this lady's history and physical can be found in the initial workup. LABORATORY STUDIES: While she is in the hospital, she had laboratory studies, details of which can be found in the laboratory section of her chart. COURSE IN THE HOSPITAL: After admission, she was placed on bedrest, started on intravenous fluids and seen by Cardiology. It was planned that she would be taken for a battery change, but she developed cellulitis with MRSA in the left arm from an IV site and the procedure was canceled. The cellulitis became quite significant with increased pain and decreased ability to move the elbow and she was started on vancomycin. Cultures positive for MRSA. Cellulitis is improving and she is doing well. It was felt she could be discharged on the and she will go home on usual activity, diet, and medication and oral antibiotics and she will be followed up in the office in several days. FINAL DIAGNOSES: 1. Low back pain. 2. Pacemaker/ICD battery failure. 3. Atrial fibrillation. 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 5. Coronary artery disease. 6. Atrial fibrillation. 7. MRSA cellulitis of the left arm. OPERATIONS: None. CONSULTATIONS: Cardiology and Infectious Disease. She is improved. MMODL / IJN: [id number] /
== END 2024-04-07 16:30 | disposition home or self-care (01) | DRG 309 ==
LOC: EC 12:22 → 3SCARD 15:31
PROVIDERS: ADMIT Family Medicine; ATTEND Family Medicine
DX: T82.111A Breakdown (mechanical) of cardiac pulse generator (battery), initial encounter (principal); I42.8 Other cardiomyopathies; T80.1XXA Vascular complications following infusion, transfusion and therapeutic injection, initial encounter; L03.114 Cellulitis of left upper limb; I67.1 Cerebral aneurysm, nonruptured; I11.0 Hypertensive heart disease with heart failure; I80.8 Phlebitis and thrombophlebitis of other sites; Z86.74 Personal history of sudden cardiac arrest; I48.91 Unspecified atrial fibrillation; J44.9 Chronic obstructive pulmonary disease, unspecified; F32.A Depression, unspecified; I34.0 Nonrheumatic mitral (valve) insufficiency; Z53.8 Procedure and treatment not carried out for other reasons; F41.9 Anxiety disorder, unspecified; I25.10 Atherosclerotic heart disease of native coronary artery without angina pectoris; B95.62 Methicillin resistant Staphylococcus aureus infection as the cause of diseases classified elsewhere; K59.00 Constipation, unspecified; E78.5 Hyperlipidemia, unspecified; Y71.2 Prosthetic and other implants, materials and accessory cardiovascular devices associated with adverse incidents; Y71.1 Therapeutic (nonsurgical) and rehabilitative cardiovascular devices associated with adverse incidents; Z87.891 Personal history of nicotine dependence; I25.2 Old myocardial infarction; Z79.51 Long term (current) use of inhaled steroids; Z79.01 Long term (current) use of anticoagulants; Z79.899 Other long term (current) drug therapy; Z86.73 Personal history of transient ischemic attack (TIA), and cerebral infarction without residual deficits; Z86.718 Personal history of other venous thrombosis and embolism; Z86.711 Personal history of pulmonary embolism; I50.9 Heart failure, unspecified
CPT/HCPCS: 36415; 71046; 78452; 80048; 80053; 80202; 82565; 84484; 85025; 85610; 85730; 86140; 87040; 87070; 87077; 87186; 87205; 93005; 93017; 93306; 94640; 96374; 96375; 96376; 99285

== ENCOUNTER 2024-04-19 10:55 | Emergency (ER) | payer MEDICARE ==
[2024-04-19 11:02] VITALS: RESP 18
--- NOTE | 2024-04-19 11:21 | ED ---
Skin/Abscess/FB HPI - General Chief complaint: Skin/Abscess/Foreign Body Stated complaint: Rash Time Seen by Provider: 04/19/24 11:03 Source: patient, RN notes reviewed Mode of arrival: ambulatory Limitations: no limitations - History of Present Illness Initial comments: 58-year-old female presents emerged part complaint of rash. Patient states started few days ago. He states she was recently hospitalized for MRSA. Patient states that she has not been on antibiotics for 1 week. Patient states his rash started 2 days ago states it is very itchy. Patient denies any difficulty breathing no difficulty swallowing no other complaints. - Related Data Home Medications Medication Instructions Recorded Confirmed Spironolactone [Aldactone] 25 mg PO DAILY 08/15/20 03/28/24 Amiodarone [Cordarone] 100 mg PO DAILY 06/20/21 03/28/24 Multivitamins, Thera [Multivitamin 1 tab PO DAILY 09/05/22 03/28/24 (formulary)] [place]-3/Dha/Epa/Fish Oil [Fish Oil 1 cap PO DAILY 05/08/23 03/28/24 1,000 mg Softgel] carvediloL [Coreg] 6.25 mg PO BID 05/08/23 03/28/24 lisinopriL [Zestril] 2.5 mg PO DAILY 05/08/23 03/28/24 Warfarin Sodium 6 mg PO HS 10/05/23 03/28/24 Warfarin [Coumadin] 2 mg PO HS 10/05/23 03/28/24 ALPRAZolam [Xanax] 0.25 mg PO TID PRN 03/28/24 03/28/24 Fluticasone/Umeclidin/Vilanter 1 puff INHALATION RT-DAILY 03/28/24 03/28/24 [Trelegy Ellipta 200-62.5-25] Previous Rx's Medication Instructions Recorded Linezolid [Zyvox] 600 mg PO Q12H #10 tab 04/07/24 hydrOXYzine HCL [Atarax] 25 mg PO TID PRN #15 tab 04/19/24 predniSONE 50 mg PO DAILY #5 tab 04/19/24 Allergies Allergy/AdvReac Type Severity Reaction Status Date / Time hydromorphone [From Dilaudid] AdvReac Nausea & Verified 04/19/24 11:02 Vomiting Review of Systems ROS Statement: Those systems with pertinent positive or pertinent negative responses have been documented in the HPI. ROS Other: All systems not noted in ROS Statement are negative. Past Medical History Past Medical History: Chest Pain / Angina, COPD, Hyperlipidemia, Hypertension, Myocardial Infarction (CT), Pneumonia, Pulmonary Embolus (PE) Additional Past Medical History / Comment(s): cardiomyopathy, PE (6yrs ago), brain aneursym NINILCHIK Last Myocardial Infarction Date:: 5 yrs ago History of Any Multi-Drug Resistant Organisms: MRSA Date of last positivie culture/infection: 04/02/24 MDRO Source:: left arm Past Surgical History: AICD, Cholecystectomy, Heart Catheterization Additional Past Surgical History / Comment(s): AICD defibrillator placed 6 years ago, Right perforated eardrum Past Anesthesia/Blood Transfusion Reactions: No Reported Reaction Type of Cardiac Device: AICD Device Placement Date:: 2015 Past Psychological History: Anxiety, Depression Smoking Status: Former smoker Past Alcohol Use History: None Reported Past Drug Use History: None Reported - Past Family History Mother Family Medical History: Diabetes Mellitus, Hypertension Father Family Medical History: No Reported History General Exam Limitations: no limitations General appearance: alert, in no apparent distress Head exam: Present: atraumatic, normocephalic, normal inspection Neck exam: Present: normal inspection. Absent: tenderness, meningismus, lymphadenopathy Respiratory exam: Present: normal lung sounds bilaterally. Absent: respiratory distress, wheezes, rales, rhonchi, stridor Cardiovascular Exam: Present: regular rate, normal rhythm, normal heart sounds. Absent: systolic murmur, diastolic murmur, rubs, gallop, clicks GI/Abdominal exam: Present: soft, normal bowel sounds. Absent: distended, tenderness, guarding, rebound, rigid Skin exam: Present: warm, dry, intact, normal color, rash Course Vital Signs 04/19/24 04/19/24 11:00 11:46 Temperature 97.6 F 97.8 F Pulse Rate 89 81 Respiratory 18 18 Rate Blood Pressure 126/82 124/82 O2 Sat by Pulse 95 96 Oximetry Medical Decision Making - Medical Decision Making Was pt. sent in by a medical professional or institution (, PA, EMPLOYEE WELLNESS/FITNESS COORDINATOR, urgent care, hospital, or jail...) When possible be specific @ -No Did you speak to anyone other than the patient for history (EMS, parent, family, police, friend...)? What history was obtained from this source @ -No Did you review nursing and triage notes (agree or disagree)? Why? @ -I reviewed and agree with nursing and triage notes Were old charts reviewed (outside hosp., previous admission, EMS record, old EKG, old radiological studies, urgent care reports/EKG's, jail records)? Report findings @ -No old charts were reviewed Differential Diagnosis (chest pain, altered mental status, abdominal pain women, abdominal pain men, vaginal bleeding, weakness, fever, dyspnea, syncope, headache, dizziness, GI bleed, back pain, seizure, CVA, palpatations, mental health, musculoskeletal)? @ -Urticaria, allergic reaction, dermatitis -contact, drug EKG interpreted by me (3pts min.). @ -None X-rays interpreted by me (1pt min.). @ -None done CT interpreted by me (1pt min.). @ -None done U/S interpreted by me (1pt. min.). @ -None done What testing was considered but not performed or refused? (CT, X-rays, U/S, labs)? Why? @ -None What meds were considered but not given or refused? Why? @ -None Did you discuss the management of the patient with other professionals (professionals i.e. , PA, EMPLOYEE WELLNESS/FITNESS COORDINATOR, lab, RT, psych nurse, social media designer, riveter automobile brakes, teacher, special assets officer, senior case manager)? Give summary @ -No Was smoking cessation discussed for >3mins.? @ -No Was critical care preformed (if so, how long)? @ -No Were there social determinants of health that impacted care today? How? (Homelessness, low income, unemployed, alcoholism, drug addiction, transportation, low edu. Level, literacy, decrease access to med. care, [facility], rehab)? @ -No Was there de-escalation of care discussed even if they declined (Discuss DNR or withdrawal of care, Hospice)? DNR status @ -No What co-morbidities impacted this encounter? (DM, HTN, Smoking, COPD, CAD, Cancer, CVA, ARF, Chemo, Hep., AIDS, mental health diagnosis, sleep apnea, morbid obesity)? @ -None Was patient admitted / discharged? Hospital course, mention meds given and route, prescriptions, significant lab abnormalities, going to OR and other p ertinent info. @ -Discharge patient has diffuse body rash more consistent with dermatitis. Patient discharged on prednisone, Atarax for itching and she will follow-up with PCP tomorrow return transfer discussed. Undiagnosed new problem with uncertain prognosis? @ -No Drug Therapy requiring intensive monitoring for toxicity (Heparin, Nitro, Insulin, Cardizem)? @ -No Were any procedures done? @ -No Diagnosis/symptom? @ -Dermatitis Acute, or Chronic, or Acute on Chronic? @ -Acute Uncomplicated (without systemic symptoms) or Complicated (systemic symptoms)? @ -Uncomplicated Side effects of treatment? @ -No Exacerbation, Progression, or Severe Exacerbation? @ -No Poses a threat to life or bodily function? How? (Chest pain, USA, CT, pneumonia, PE, COPD, DKA, ARF, appy, cholecystitis, CVA, Diverticulitis, Homicidal, Suicidal, threat to staff... and all critical care pts) @ -No Disposition Clinical Impression: Dermatitis Disposition: HOME SELF-CARE Condition: Stable Instructions (If sedation given, give patient instructions): Dermatitis (ED) Additional Instructions: Please return to the Emergency Department if symptoms worsen or any other concerns. Prescriptions: hydrOXYzine HCL [Atarax] 25 mg PO TID PRN #15 tab PRN Reason: itching predniSONE 50 mg PO DAILY #5 tab Is patient prescribed a controlled substance at d/c from ED?: No Referrals: Daniel Mosqueda MD [Primary Care Provider] - 1-2 days Time of Disposition: 11:21
[2024-04-19 11:48] VITALS: BP 124/82; PULSE 81; TEMP 97.8
== END 2024-04-19 11:46 | disposition home or self-care (01) ==
LOC: EC 10:55
CPT/HCPCS: 99282

== ENCOUNTER → 2024-06-12 | Outpatient (CLI) | payer MEDICARE ==
[2024-06-12 18:40] LABS: HCT 43.9 % (37.2-46.3); HGB 14.4 g/dL (12.0-15.0); MCH 27.5 pg (27.0-32.0); MCHC 32.8 g/dL (32.0-37.0); MCV 83.9 FL (80.0-97.0); Mean Platelet Volume 12.3 FL (9.5-12.2); NRBC Per 100 WBC 0 X 10*3/uL (0.00-0.01); Platelet Count 266 X 10*3/uL (140-440); RBC 5.23 X 10*6/uL (4.10-5.20); RDW 16.5 % (11.5-14.5); WBC 10.12 X 10*3/uL (4.50-10.00)
[2024-06-12 18:45] LABS: Blood Urea Nitrogen 11.8 mg/dL (9.0-27.0); Carbon Dioxide 21.9 mmol/L (21.6-31.8); Chloride 105 mmol/L (96-109); Potassium 4.2 mmol/L (3.5-5.5); Sodium 142 mmol/L (135-145)
== END | disposition home or self-care (01) ==
LOC: LABWHC1 14:41
PROVIDERS: ATTEND Internal Medicine Clinical Cardiac Electrophysiology
DX: Z01.812 Encounter for preprocedural laboratory examination (principal); I50.22 Chronic systolic (congestive) heart failure; Z95.810 Presence of automatic (implantable) cardiac defibrillator
CPT/HCPCS: 36415; 80051; 82565; 84520; 85027

== ENCOUNTER 2024-06-22 12:59 | Day surgery (SDC) | payer MEDICARE ==
[2024-06-20 10:04] VITALS: BMI 38.0
[~2024-06-22 12:59] MED LIST: VANCOMYCIN IV PER PHARMACY 1 EACH MISC MISCELLANE PRN
[2024-06-22 14:06] VITALS: RESP 18
[2024-06-22 14:07] LABS: INR 2.5 (<1.2); Prothrombin Time 24.9 sec (10.0-12.5)
[2024-06-22] MEDS: VANCOMYCIN 1,750 MG in SODIUM CHLORIDE 0.9% 500 ML 500 ML IVPB ONE (14:22)
[2024-06-22] MEDS: IV FLUID CONTINUATION 500 ML IV ONE (14:22)
[2024-06-22] MEDS ORDERED: PROPOFOL 10 MG/ML 20 ML VIAL IV ONE (19:14)
[2024-06-22] MEDS: IV FLUID CONTINUATION 1,000 ML IV ONE (19:14)
[2024-06-22] MEDS ORDERED: KETAMINE HCL IN 0.9 % NACL 50 MG/5 ML SYRINGE ONE (19:14)
[2024-06-22] MEDS ORDERED: fentaNYL (PF) 50 MCG/ML 2 ML AMP ONE (19:14)
[2024-06-22] MEDS ORDERED: MIDAZOLAM 2 MG/2 ML VIAL ONE (19:14)
[2024-06-22] MEDS: ceFAZolin 1 GM in SODIUM CHLORIDE 0.9% IRRIG BTL 250 ML IRRIGATION PRN (19:44)
[2024-06-22] MEDS: LIDOCAINE 1% INJ 10MG/ML (20 ML MDV) SQ ONE (19:47)
[2024-06-22] MEDS: ROPIVACAINE 5 MG/ML 30 ML VIAL MISCELLANE ONE (19:47)
--- NOTE | 2024-06-22 20:21 | P.EPPROC ---
- EP Procedure Note Electrophysiology Procedure Note: Diagnosis Cardiomyopathy, chronic, nonischemic Congestive heart failure [place] [employer] class 2 Wide QRS, left bundle branch block pattern, status post BiV ICD in 2015 History of VF arrest at that time requiring ICD with BiV pacing since she had a left bundle branch block morphology On guide line directed medical treatment for greater than 3 months History of recent MRSA infection about 2 months back which has been treated Appropriate precautions taken thereafter Left ventricular ejection fraction 45% Procedure: Biventricular ICD generator change for management of risk of sudden cardiac and congestive heart failure, past history of VF arrest, secondary prevention Result: Successful biventricular ICD generator change Interrogation of chronic leads Atrial lead: Pacing threshold 1.3 V at 0.5 ms, P waves 2.7 mV, pacing impedance 430 ohms RV ICD lead: 1.5 V at 1 ms, R waves greater than 12 mV and pacing impedance 960 ohms Left ventricular lead: 3 V at 1.5 ms, LV tip-RV coil Procedure details: Patient was brought to the EP lab in a fasting state. Radha sutton informed consent was obtained prior to the procedure. Options, pros and cons, benefits and risks and complications discussed with patient in detail prior to the procedure (shared decision making) previously. Importance of continuing medical treatment emphasized previously. Alternatives discussed previously. [place] document was given to the patient Cinefluoroscopy of the leads showed an atrial lead in the right atrial appendage, active fix. ICD lead in the right ventricle LV lead in the coronary vein No fractures or breaks The chronic BiV ICD generator was explanted. The new biventricular ICD generator was implanted. Antibiotic pouch placed. Partial capsulectomy performed. Hemostasis assured Leads connected to the biventricular ICD generator. Wound closed in 3 layers and dressed per protocol Biventricular ICD interrogated and programmed. Appropriate pacing parameters, antitachycardia therapies with antitachycardia pacing cardioversion defibrillations programmed. AV delay and biventricular pacing parameters programmed to achieve optimal physiologic pacing. LV offset 55 ms Defibrillation level testing Ventricular fibrillation was induced and successfully detected with few dropouts 20 J shock failed 30 J shock successful High-voltage impedance 100 ohms Last charge 5.9 seconds No post shock noise All defibrillations and cardioversions at maximum output Appropriate antitachycardia pacing Patient tolerated the procedure well without any acute complications. See scanned device report in EMR for lead details
[2024-06-22] MEDS: ATORVASTATIN 80 MG TAB PO SCH (20:36)
[2024-06-22] MEDS: carvediloL 6.25 MG TAB PO SCH (20:36)
[2024-06-22] MEDS: ACETAMINOPHEN IV (For NPO) 1,000 MG in EMPTY BAG 1 BAG IVPB ONE (20:40)
[2024-06-22] MEDS: LACTATED RINGERS 1,000 ML IV SCH (21:52)
[2024-06-22] MEDS: SODIUM CHLORIDE 0.9% 1,000 ML IV SCH ×2 (21:53)
[2024-06-23] MEDS: ACETAMINOPHEN TAB 325 MG TAB PO PRN (01:27)
[2024-06-23] MEDS: VANCOMYCIN 1,750 MG in SODIUM CHLORIDE 0.9% 500 ML 500 ML IVPB ONE (01:28)
[2024-06-23 06:25] VITALS: BP 123/79; PULSE 86; TEMP 98
[2024-06-23] MEDS: AMIODARONE 100 MG TAB PO SCH (09:19)
[2024-06-23] MEDS: SPIRONOLACTONE 25 MG TAB PO SCH (09:19)
== END 2024-06-23 10:52 | disposition home or self-care (01) ==
LOC: CATHEP 12:59 → 6NMEDSUR 20:16 → CATHEP 06-23 10:52
PROVIDERS: ATTEND Internal Medicine Clinical Cardiac Electrophysiology
DX: I42.9 Cardiomyopathy, unspecified (principal); I50.9 Heart failure, unspecified; I11.0 Hypertensive heart disease with heart failure; I44.7 Left bundle-branch block, unspecified; I49.01 Ventricular fibrillation; F17.210 Nicotine dependence, cigarettes, uncomplicated; Z86.74 Personal history of sudden cardiac arrest
CPT/HCPCS: 33264; 85610; C1882; J3370 ×2; J0690 ×2; J2003; J2795; J0131

== ENCOUNTER 2024-10-21 11:38 | Inpatient (IN) | payer MEDICARE, OTHER ==
[2024-10-21] MEDS: NITROGLYCERIN SL TABS 0.4 MG TAB SUBLINGUAL STA (11:54)
[2024-10-21] MEDS: SODIUM CHLORIDE 0.9% 500 ML 500 ML IV STA (11:54)
[2024-10-21 11:58] LABS: Basophils % (A) 0 %; Eosinophils # (A) 0.2 k/uL (0-0.7); Eosinophils % (A) 3 %; HCT 38.5 % (34.0-46.0); HGB 13.2 gm/dL (11.4-16.0); Lymphocytes # (A) 1.8 k/uL (1.0-4.8); Lymphocytes % (A) 25 %; MCH 28.3 pg (25.0-35.0); MCHC 34.2 g/dL (31.0-37.0); MCV 82.7 fL (80.0-100.0); Mean Platelet Volume 8.9; Monocytes # (A) 0.5 k/uL (0-1.0); Monocytes % (A) 6 %; Neutrophils # (A) 4.6 k/uL (1.3-7.7); Neutrophils % (A) 64 %; Platelet Count 161 k/uL (150-450); Poikilocytosis Slight; RBC 4.66 m/uL (3.80-5.40); RDW 15.7 % (11.5-15.5); WBC 7.2 k/uL (3.8-10.6)
[2024-10-21 12:12] LABS: INR 1.8 (<1.2); Prothrombin Time 18.6 sec (10.0-12.5)
[2024-10-21 12:15] LABS: ALT 29 U/L (4-34); AST 38 U/L (14-36); African American GFR (CKD) 84 (>60 ml/min/1.73 sqM); Albumin 4.3 g/dL (3.5-5.0); Alkaline Phosphatase 126 U/L (38-126); Anion Gap 8 mmol/L; Blood Urea Nitrogen 13 mg/dL (7-17); Calcium 9.1 mg/dL (8.4-10.2); Carbon Dioxide 25 mmol/L (22-30); Chloride 106 mmol/L (98-107); Glucose 104 mg/dL (74-99); Magnesium 1.8 mg/dL (1.6-2.3); Non-African American GFR(CKD) 73 (>60 ml/min/1.73 sqM); Potassium 4.2 mmol/L (3.5-5.1); Sodium 139 mmol/L (137-145); Total Bilirubin 0.8 mg/dL (0.2-1.3); Total Protein 6.9 g/dL (6.3-8.2)
--- NOTE | 2024-10-21 12:32 | ED ---
General Adult HPI - General Chief complaint: Chest Pain Stated complaint: Chest pain, SOB Time Seen by Provider: 10/21/24 11:41 Source: patient, EMS, RN notes reviewed Mode of arrival: EMS Limitations: no limitations - History of Present Illness Initial comments: 59-year-old female presents emergency department with chief complaint of chest discomfort. Patient states that started earlier this morning states that she had left-sided chest pain radiated towards her neck. Patient just had a but she has no complaints of headache, blurred vision any focal weakness at the time. Patient was given aspirin by EMS. Patient states she has been very nauseated did receive Zofran. Patient denies any back pain. Patient does admit that she had a prior SD, history of PE is on Coumadin currently. She denies any significant URI symptoms no fevers chills no localized abdominal pain or any back pain. - Related Data Home Medications Medication Instructions Recorded Confirmed Spironolactone [Aldactone] 25 mg PO DAILY 08/15/20 06/22/24 Amiodarone [Cordarone] 100 mg PO DAILY 06/20/21 06/22/24 Multivitamins, Thera [Multivitamin 1 tab PO DIRECTED 09/05/22 06/22/24 (formulary)] carvediloL [Coreg] 6.25 mg PO BID 05/08/23 06/22/24 lisinopriL [Zestril] 2.5 mg PO AC-BRKFST 05/08/23 06/22/24 Warfarin Sodium 6 mg PO HS 10/05/23 06/22/24 Warfarin [Coumadin] 2 mg PO HS 10/05/23 06/22/24 ALPRAZolam [Xanax] 0.25 mg PO BID PRN 03/28/24 06/22/24 Fluticasone/Umeclidin/Vilanter 1 puff INHALATION RT-DAILY PRN 03/28/24 06/22/24 [Trelegy Ellipta 200-62.5-25] Atorvastatin [Lipitor] 80 mg PO HS 06/20/24 06/22/24 Fenofibrate [Lofibra] 150 mg PO HS 06/20/24 06/22/24 traZODone HCL 100 mg PO DIRECTED PRN 06/20/24 06/22/24 Previous Rx's Medication Instructions Recorded Sulfamethox-Tmp 800-160Mg [Bactrim 1 tab PO Q12HR #15 tab 06/22/24 DS 800-160 mg] Allergies Allergy/AdvReac Type Severity Reaction Status Date / Time hydromorphone [From Dilaudid] AdvReac Nausea & Verified 10/21/24 11:46 Vomiting Review of Systems ROS Statement: Those systems with pertinent positive or pertinent negative responses have been documented in the HPI. ROS Other: All systems not noted in ROS Statement are negative. Past Medical History Past Medical History: Chest Pain / Angina, COPD, Hyperlipidemia, Hypertension, Myocardial Infarction (SD), Pneumonia, Pulmonary Embolus (PE) Additional Past Medical History / Comment(s): cardiomyopathy, PE (6yrs ago), brain aneursym [place] Last Myocardial Infarction Date:: 5 yrs ago History of Any Multi-Drug Resistant Organisms: MRSA Date of last positivie culture/infection: 04/02/24 MDRO Source:: left arm Past Surgical History: AICD, Cholecystectomy, Heart Catheterization Additional Past Surgical History / Comment(s): AICD defibrillator placed 6 years ago, Right perforated eardrum Past Anesthesia/Blood Transfusion Reactions: No Reported Reaction Type of Cardiac Device: AICD Device Placement Date:: 2015 Past Psychological History: Anxiety, Depression Smoking Status: Former smoker - Past Family History Mother Family Medical History: Diabetes Mellitus, Hypertension Father Family Medical History: No Reported History Sister(s) Family Medical History: Diabetes Mellitus General Exam Limitations: no limitations General appearance: alert, in no apparent distress Head exam: Present: atraumatic, normocephalic, normal inspection ENT exam: Present: normal exam, normal oropharynx, mucous membranes moist Neck exam: Present: normal inspection, full ROM. Absent: tenderness, meningismus, lymphadenopathy Respiratory exam: Present: normal lung sounds bilaterally. Absent: respiratory distress, wheezes, rales, rhonchi, stridor Cardiovascular Exam: Present: regular rate, normal rhythm, normal heart sounds. Absent: systolic murmur, diastolic murmur, rubs, gallop, clicks GI/Abdominal exam: Present: soft, normal bowel sounds. Absent: distended, tenderness, guarding, rebound, rigid Course Vital Signs 10/21/24 10/21/24 10/21/24 11:40 13:00 14:00 Temperature 98.3 F Pulse Rate 98 80 83 Respiratory 18 18 18 Rate Blood Pressure 129/87 106/59 98/67 O2 Sat by Pulse 98 97 96 Oximetry EKG Findings - EKG Comments: EKG Findings:: EKG performed at 12: 08 ventricular paced at a rate of 92 QRS 185 QT/QTc 399/449 - EKG Results: EKG: interpreted by TEJ Medical Decision Making - Medical Decision Making Was pt. sent in by a medical professional or institution (, [facility], [employer], urgent care, hospital, or snf...) When possible be specific @ -No Did you speak to anyone other than the patient for history (EMS, parent, family, police, friend...)? What history was obtained from this source @ -No Did you review nursing and triage notes (agree or disagree)? Why? @ -I reviewed and agree with nursing and triage notes Were old charts reviewed (outside hosp., previous admission, EMS record, old EKG, old radiological studies, urgent care reports/EKG's, snf records)? Report findings @ -No old charts were reviewed Differential Diagnosis (chest pain, altered mental status, abdominal pain women, abdominal pain men, vaginal bleeding, weakness, fever, dyspnea, syncope, headache, dizziness, GI bleed, back pain, seizure, CVA, palpatations, mental health, musculoskeletal)? @ -Differential Chest Pain: Stable Angina, Unstable Angina, STEMI, NSTEMI Aortic Dissection, Pneumothorax, Musculoskeletal, Esophageal Spasm GERD, Cholecystitis, Pancreatitis, Zoster, this is not meant to be an all-inclusive list. EKG interpreted by me (3pts min.). @ -As above X-rays interpreted by me (1pt min.). @X-ray shows no acute cardiopulmonary process. CT interpreted by me (1pt min.). @ -None done U/S interpreted by me (1pt. min.). @ -None done What testing was considered but not performed or refused? (CT, X-rays, U/S, labs)? Why? @ -None What meds were considered but not given or refused? Why? @ -None Did you discuss the management of the patient with other professionals (professionals i.e. , STUART, [employer], lab, RT, psych nurse, healthcare social worker, tester printed circuit boards, teacher, code enforcement officer, embedded case manager)? Give summary @ -Dr. Mosqueda for admission Was smoking cessation discussed for >3mins.? @ -No Was critical care preformed (if so, how long)? @ -No Were there social determinants of health that impacted care today? How? (Homelessness, low income, unemployed, alcoholism, drug addiction, transportation, low edu. Level, literacy, decrease access to med. care, retirement, rehab)? @ -No Was there de-escalation of care discussed even if they declined (Discuss DNR or withdrawal of care, Hospice)? DNR status @ -No What co-morbidities impacted this encounter? (DM, HTN, Smoking, COPD, CAD, Cancer, CVA, ARF, Chemo, Hep., AIDS, mental health diagnosis, sleep apnea, morbid obesity)? @ -[CAD Was patient admitted / discharged? Hospital course, mention meds given and route, prescriptions, significant lab abnormalities, going to OR and other pertinent info. @ -Admitted patient presented for chest discomfort, patient does have a history of cardiac disease. Initial troponin is negative. Patient had relief after nitro. Patient will be admitted for cardiology rule out. Undiagnosed new problem with uncertain prognosis? @ -No Drug Therapy requiring intensive monitoring for toxicity (Heparin, Nitro, Insulin, Cardizem)? @ -No Were any procedures done? @ -No Diagnosis/symptom? @ -Chest pain Acute, or Chronic, or Acute on Chronic? @ -Acute Uncomplicated (without systemic symptoms) or Complicated (systemic symptoms)? @ -complicated Side effects of treatment? @ -No Exacerbation, Progression, or Severe Exacerbation? @ -No Poses a threat to life or bodily function? How? (Chest pain, [place], SD, pneumonia, PE, COPD, DKA, ARF, appy, cholecystitis, CVA, Diverticulitis, Homicidal, Suicidal, threat to staff... and all critical care pts) @ -Yes chest pain, risk to cardiac function - Lab Data Result diagrams: 10/21/24 11:54 10/21/24 11:54 Lab Results 10/21/24 10/21/24 10/21/24 Range/Units 11:54 11:54 11:54 WBC 7.2 (3.8-10.6) k/uL RBC 4.66 (3.80-5.40) m/uL Hgb 13.2 (11.4-16.0) gm/dL Hct 38.5 (34.0-46.0) % MCV 82.7 (80.0-100.0) fL MCH 28.3 (25.0-35.0) pg MCHC 34.2 (31.0-37.0) g/dL RDW 15.7 H (11.5-15.5) % Plt Count 161 (150-450) k/uL MPV 8.9 Neutrophils % 64 % Lymphocytes % 25 % Monocytes % 6 % Eosinophils % 3 % Basophils % 0 % Neutrophils # 4.6 (1.3-7.7) k/uL Lymphocytes # 1.8 (1.0-4.8) k/uL Monocytes # 0.5 (0-1.0) k/uL Eosinophils # 0.2 (0-0.7) k/uL Basophils # 0.0 (0-0.2) k/uL Poikilocytosis Slight PT 18.6 H (10.0-12.5) sec INR 1.8 H (<1.2) APTT 26.0 (22.0-30.0) sec D-Dimer 0.18 (<0.60) mg/L FEU Sodium 139 (137-145) mmol/L Potassium 4.2 (3.5-5.1) mmol/L Chloride 106 (98-107) mmol/L Carbon Dioxide 25 (22-30) mmol/L Anion Gap 8 mmol/L BUN 13 (7-17) mg/dL Creatinine 0.87 (0.52-1.04) mg/dL Est GFR (CKD-EPI)AfAm 84 (>60 ml/min/1.73 sqM) Est GFR (CKD-EPI)NonAf 73 (>60 ml/min/1.73 sqM) Glucose 104 H (74-99) mg/dL Calcium 9.1 (8.4-10.2) mg/dL Magnesium 1.8 (1.6-2.3) mg/dL Total Bilirubin 0.8 (0.2-1.3) mg/dL AST 38 H (14-36) U/L ALT 29 (4-34) U/L Alkaline Phosphatase 126 (38-126) U/L Troponin I (0.000-0.034) ng/mL Total Protein 6.9 (6.3-8.2) g/dL Albumin 4.3 (3.5-5.0) g/dL 10/21/24 Range/Units 11:54 WBC (3.8-10.6) k/uL RBC (3.80-5.40) m/uL Hgb (11.4-16.0) gm/dL Hct (34.0-46.0) % MCV (80.0-100.0) fL MCH (25.0-35.0) pg MCHC (31.0-37.0) g/dL RDW (11.5-15.5) % Plt Count (150-450) k/uL MPV Neutrophils % % Lymphocytes % % Monocytes % % Eosinophils % % Basophils % % Neutrophils # (1.3-7.7) k/uL Lymphocytes # (1.0-4.8) k/uL Monocytes # (0-1.0) k/uL Eosinophils # (0-0.7) k/uL Basophils # (0-0.2) k/uL Poikilocytosis PT (10.0-12.5) sec INR (<1.2) APTT (22.0-30.0) sec D-Dimer (<0.60) mg/L FEU Sodium (137-145) mmol/L Potassium (3.5-5.1) mmol/L Chloride (98-107) mmol/L Carbon Dioxide (22-30) mmol/L Anion Gap mmol/L BUN (7-17) mg/dL Creatinine (0.52-1.04) mg/dL Est GFR (CKD-EPI)AfAm (>60 ml/min/1.73 sqM) Est GFR (CKD-EPI)NonAf (>60 ml/min/1.73 sqM) Glucose (74-99) mg/dL Calcium (8.4-10.2) mg/dL Magnesium (1.6-2.3) mg/dL Total Bilirubin (0.2-1.3) mg/dL AST (14-36) U/L ALT (4-34) U/L Alkaline Phosphatase (38-126) U/L Troponin I <0.012 (0.000-0.034) ng/mL Total Protein (6.3-8.2) g/dL Albumin (3.5-5.0) g/dL Disposition Clinical Impression: Chest pain Disposition: ADMITTED IP TO THIS HOSP Referrals: Daniel Mosqueda MD [Primary Care Provider] - 1-2 days Time of Disposition: 14:18
--- NOTE | 2024-10-21 13:22 | XR ---
EXAMINATION TYPE: XR chest 2V DATE OF EXAM: 10/21/2024 12:23 PM COMPARISON: 03/28/2024 CLINICAL INDICATION: Female, 59 years old with history of Chest Pain, TECHNIQUE: XR chest 2V view(s) obtained. FINDINGS: The heart size is normal. The pulmonary vasculature is normal. The lungs are clear. Pacemaker overlies left chest. IMPRESSION: 1. No acute pulmonary process. [facility], , 10/21/2024 1:20 PM
[2024-10-21] MEDS ORDERED: NITROGLYCERIN SL TABS 0.4 MG TAB SUBLINGUAL PRN (14:18)
[2024-10-21] MEDS: NITROGLYCERIN OINT 1 INCH/GM PACKET TOPICAL STA (14:32)
[2024-10-21] MEDS: SODIUM CHLORIDE 0.9% 500 ML 500 ML IV ONE (14:34)
[2024-10-21] MEDS: WARFARIN 3 MG TAB PO SCH (22:09)
[2024-10-21] MEDS: traZODone HCL 100 MG TAB PO PRN (22:09)
[2024-10-21] MEDS: ALPRAZolam 0.25 MG TAB PO PRN (22:09)
[2024-10-21] MEDS: ATORVASTATIN 80 MG TAB PO SCH (22:09)
[2024-10-21] MEDS: carvediloL 6.25 MG TAB PO SCH (22:09)
[2024-10-22 08:09] LABS: INR 1.8 (<1.2); Prothrombin Time 18.5 sec (10.0-12.5)
[2024-10-22] MEDS: SPIRONOLACTONE 25 MG TAB PO SCH (08:25)
[2024-10-22] MEDS: ASPIRIN 325 MG TAB PO SCH (08:25)
[2024-10-22] MEDS ORDERED: AMIODARONE 200 MG TAB PO SCH (09:00)
[2024-10-22] MEDS: AMIODARONE 100 MG TAB PO SCH (10:07)
[2024-10-22] MEDS: lisinopriL 5 MG TAB PO STA (11:57)
[2024-10-22] MEDS: DAPAGLIFLOZIN PROPANEDIOL 10 MG TABLET PO SCH (11:58)
[2024-10-22] MEDS: carvediloL 6.25 MG TAB PO STA (11:58)
[2024-10-22 13:14] LABS: Chol/HDL Ratio 6.61 Ratio; LDL Cholesterol,Calculated 78.3 mg/dL (0.0-131.0)
[2024-10-22] MEDS: BUTALB/APAP/CAFF 50-325-40MG TAB PO PRN (15:43)
--- NOTE | 2024-10-22 17:05 | P.CRDCN ---
History of Present Illness Consult date: 10/22/24 History of present illness: HISTORY OF PRESENTING ILLNESS: Patient is a 59-year-old female who is known to Dr. Reece. She has history of nonischemic cardiomyopathy with biventricular ICD with recent generator change. She also has history of ventricular fibrillation, COPD, cor pulmonale and history of pulmonary embolism. This time she presented because of atypical substernal chest pain like symptoms. On admission her EKG showed ventricularly paced rhythm On admission her troponins were not elevated, D-dimer are not elevated Her LDL was 73, Chest x-ray shows mild increased interstitial markings in bilateral lower lung baker suggestive of mild pulm congestion. REVIEW OF SYSTEMS: 14 point review of system is negative except what is mentioned above in HPI. PHYSICAL EXAMINATION: Neck: Brisk carotid upstroke, no jugular venous distention. Lungs: Mild crackles audible in bilateral lower lung baker Heart: Regular rate and rhythm, S1-S2, , no murmur or rub. Abdomen: Soft nontender, positive bowel sounds. Extremities: 1+ pitting edema bilateral lower extremity Neuro: Alert, oritented, no focal deficits. Detailed neuro exam was not performed. ASSESSMENT: # Mild HFrEF exacerbation # Prior history of nonischemic cardiomyopathy # Biventricular ICD # History of ventricular fibrillation # History of PE on warfarin # Obesity PLAN: She not been able to get appropriate GDMT because of underinsured coverage with high cost for GDMT. Therefore she is not on Entresto, SGLT2 Because her resting blood pressure and heart rate is slightly high I will increase Coreg to 12.5 mg twice daily and increase lisinopril to 5 mg daily Lasix 40 mg daily Monitor blood pressure and kidney function She is on warfarin, will continue Continue aspirin, Lipitor, amiodarone Shreyas Bae MD, FACC, RPVI Thank you for allowing [facility] to participate in this patient's care. Feel free to reach out in case of any followup questions. Past Medical History Past Medical History: Chest Pain / Angina, COPD, Hyperlipidemia, Hypertension, Myocardial Infarction ([place]), Pneumonia, Pulmonary Embolus (PE) Additional Past Medical History / Comment(s): cardiomyopathy, PE (10yrs ago), brain aneursym [place] Last Myocardial Infarction Date:: 10years ago History of Any Multi-Drug Resistant Organisms: MRSA Date of last positivie culture/infection: 04/02/24 MDRO Source:: left arm Past Surgical History: AICD, Cholecystectomy, Heart Catheterization Additional Past Surgical History / Comment(s): AICD defibrillator placed 6 years ago, Right perforated eardrum Past Anesthesia/Blood Transfusion Reactions: No Reported Reaction Type of Cardiac Device: AICD Device Placement Date:: 2015 Past Psychological History: Anxiety, Depression Smoking Status: Former smoker Past Alcohol Use History: None Reported Past Drug Use History: None Reported - Past Family History Mother Family Medical History: Diabetes Mellitus, Hypertension Father Family Medical History: No Reported History Sister(s) Family Medical History: Diabetes Mellitus Medications and Allergies Home Medications Medication Instructions Recorded Confirmed Type Spironolactone [Aldactone] 25 mg PO DAILY 08/15/20 10/21/24 History Amiodarone [Cordarone] 100 mg PO DAILY 06/20/21 10/22/24 History carvediloL [Coreg] 6.25 mg PO BID 05/08/23 10/21/24 History lisinopriL [Zestril] 2.5 mg PO DAILY 05/08/23 10/21/24 History Warfarin Sodium 6 mg PO HS 10/05/23 10/21/24 History ALPRAZolam [Xanax] 0.25 mg PO TID PRN 03/28/24 10/21/24 History Atorvastatin [Lipitor] 80 mg PO HS 06/20/24 10/21/24 History traZODone HCL 100 mg PO HS PRN 06/20/24 10/21/24 History Allergies Allergy/AdvReac Type Severity Reaction Status Date / Time hydromorphone [From Dilaudid] AdvReac Nausea & Verified 10/21/24 15:40 Vomiting Physical Exam Vitals: Vital Signs Temp Pulse Pulse Resp BP BP Pulse Ox 10/22/24 15:00 98.5 F 63 16 99/68 94 L 10/22/24 08:30 99 10/22/24 08:22 99 131/78 10/22/24 07:00 98.7 F 86 15 100/60 93 L 10/22/24 01:25 97.8 F 85 20 109/65 92 L 10/21/24 19:21 97.6 F 87 20 135/77 92 L 10/21/24 19:00 95 18 122/73 95 10/21/24 17:53 97.9 F 83 19 113/69 94 L Intake and Output 10/22/24 10/22/24 10/22/24 06:59 14:59 22:59 Other: Voiding Method Toilet Toilet # Voids 2 3 # Bowel Movements 1 Results 10/21/24 11:54 10/21/24 11:54 Cardiac Enzymes 10/21/24 Range/Units 18:36 Troponin I <0.012 (0.000-0.034) ng/mL Coagulation 10/22/24 Range/Units 06:48 PT 18.5 H (10.0-12.5) sec Lipids 10/22/24 Range/Units 06:48 Triglycerides 245.00 H (0.00-149.00) mg/dL Cholesterol 150.00 (0.00-200.00) mg/dL HDL Cholesterol 22.70 L (40.00-60.00) mg/dL Cholesterol/HDL Ratio 6.61 Ratio Current Medications Generic Name Dose Route Start Last Admin Trade Name Freq PRN Reason Stop Dose Admin Acetaminophen/Butalbital/Caffeine 1 each 10/22/24 12:20 10/22/24 15:43 Butalb/Apap/Caff 50-325-40mg Tab PO 1 each Q4HR PRN Administration Headache Alprazolam 0.25 mg 10/21/24 21:27 10/22/24 10:12 Alprazolam 0.25 Mg Tab PO 0.25 mg TID PRN Administration Anxiety Amiodarone HCl 100 mg 10/22/24 10:00 10/22/24 10:07 Amiodarone 100 Mg Tab PO 100 mg DAILY [place] Administration Aspirin 81 mg 10/23/24 09:00 Aspirin 81 Mg PO DAILY [facility] Atorvastatin Calcium 80 mg 10/21/24 21:30 10/21/24 22:09 Atorvastatin 80 Mg Tab PO 80 mg HS [place] Administration Carvedilol 12.5 mg 10/22/24 17:30 Carvedilol 12.5 Mg Tab PO BID-W/MEALS [place] Furosemide 40 mg 10/22/24 17:15 Furosemide 40 Mg Tab PO DAILY [facility] Lisinopril 5 mg 10/23/24 09:00 Lisinopril 5 Mg Tab PO DAILY [facility] Miscellaneous Information 0 each 10/21/24 21:46 Warfarin Per Pharmacy MISCELLANE DIRECTED PRN Per Protocol Nitroglycerin 0.4 mg 10/21/24 14:18 Nitroglycerin Sl Tabs 0.4 Mg Tab SUBLINGUAL Q5M PRN Chest Pain Spironolactone 25 mg 10/22/24 09:00 10/22/24 08:25 Spironolactone 25 Mg Tab PO 25 mg DAILY [place] Administration Trazodone HCl 100 mg 10/21/24 21:27 10/21/24 22:09 Trazodone Hcl 100 Mg Tab PO 100 mg HS PRN Administration Insomnia Warfarin Sodium 7.5 mg 10/22/24 18:00 Warfarin 7.5 Mg Tab PO 10/22/24 18:01 ONCE@1800 ONE Intake and Output 10/22/24 10/22/24 10/22/24 06:59 14:59 22:59 Other: Voiding Method Toilet Toilet # Voids 2 3 # Bowel Movements 1 10/21/24 11:54 10/21/24 11:54
[2024-10-22] MEDS: FUROSEMIDE 40 MG TAB PO SCH (17:30)
[2024-10-22] MEDS: WARFARIN 7.5 MG TAB PO ONE (17:30)
[2024-10-22] MEDS: carvediloL 12.5 MG TAB PO SCH (17:30)
--- NOTE | 2024-10-23 01:18 | HP ---
HISTORY AND PHYSICAL CHIEF COMPLAINT: Chest pain. HISTORY OF PRESENT ILLNESS: This is another of many admissions for this anxious 59-year-old female. She has reason to be concerned and that she has had previous myocardial problems, atrial fibrillation, CVA, and other issues. She presented with chest pain. She also has a slight headache. She has had no diaphoresis or significant shortness of breath. Past medical history, family history, and personal and social histories are otherwise unchanged. PHYSICAL EXAMINATION: VITAL SIGNS: Normal. HEAD, EARS, EYES, NOSE, MOUTH AND THROAT: Normal. CHEST: Clear. CARDIAC: Sounds like atrial fibrillation. She does have a pacemaker. ABDOMEN: Soft, nontender. EXTREMITIES: Normal. NEUROLOGICAL: She is intact. She is admitted to the hospital with diagnoses of: 1. Chest pain. 2. History of coronary artery disease. 3. History of intracranial bleed. 4. Anxiety. PLAN: 1. Bed rest. 2. IV fluids. 3. Serial EKGs and enzymes. 4. Consult Cardiology. MMODL / IJN: [id number] /
--- NOTE | 2024-10-23 01:56 | PN ---
PROGRESS NOTE DATE OF SERVICE: 10/22/2024 CHIEF COMPLAINT: Chest pain. HISTORY OF PRESENT ILLNESS: This lady's pain is better. Enzymes have been normal. She is complaining of a headache. PHYSICAL EXAMINATION: NECK: Supple. CHEST: Clear. CARDIAC: Unchanged. ABDOMEN: Soft, nontender. IMPRESSION: 1. Chest pain. 2. History of coronary artery disease. 3. History of arrhythmia. 4. History of central nervous system bleed. PLAN: 1. Await Cardiology recommendation. 2. Increase her activity. 3. Fioricet for headache. MMODL / IJN: [id number] /
[2024-10-23 06:20] LABS: INR 2.1 (<1.2); Prothrombin Time 20.8 sec (10.0-12.5)
[2024-10-23 08:27] LABS: BUN/Creat Ratio 13.56 Ratio (12.00-20.00); Blood Urea Nitrogen 12.2 mg/dL (9.0-27.0); Calcium 9.2 mg/dL (8.7-10.3); Carbon Dioxide 24.7 mmol/L (21.6-31.8); Chloride 101 mmol/L (96-109); Glucose 110 mg/dL (70-110); Potassium 3.9 mmol/L (3.5-5.5); Sodium 139 mmol/L (135-145)
[2024-10-23] MEDS ORDERED: lisinopriL 10 MG TAB PO SCH (09:00)
[2024-10-23] MEDS: lisinopriL 5 MG TAB PO SCH (09:18)
[2024-10-23] MEDS: ASPIRIN 81 MG PO SCH (09:18)
--- NOTE | 2024-10-23 12:36 | P.PN ---
Subjective HISTORY OF PRESENT ILLNESS: Patient is a 59-year-old female who is known to Dr. Reece. She has history of nonischemic cardiomyopathy with biventricular ICD with recent generator change. She also has history of ventricular fibrillation, COPD, cor pulmonale and history of pulmonary embolism. This time she presented because of atypical substernal chest pain like symptoms. On admission her EKG showed ventricularly paced rhythm On admission her troponins were not elevated, D-dimer are not elevated Her LDL was 73, Chest x-ray shows mild increased interstitial markings in bilateral lower lung baker suggestive of mild pulm congestion. 10/23/2024 Patient examined this morning at the bedside. Patient currently denies chest pain or pressure. She currently denies shortness of breath but states that she feels like her lungs are tight at times. She states that Dr. Mosqueda discussed possibly putting her on steroids. Pressures were low with a systolic in the 80s and 90s yesterday. However blood pressure this morning is stable with a reading of 142/72. PHYSICAL EXAM: VITAL SIGNS: Reviewed. GENERAL: Well-developed in no acute distress. NECK: Supple. No JVD or thyromegaly LUNGS: Respirations even and unlabored. Lungs essentially clear to auscultation bilaterally. HEART: Regular rate and rhythm. S1 and S2 heard. EXTREMITIES: Normal range of motion. No clubbing or cyanosis. Peripheral pulses intact. No lower extremity edema ASSESSMENT: # Acute on chronic heart failure with reduced EF # Prior history of nonischemic cardiomyopathy # Biventricular ICD # History of ventricular fibrillation # History of PE on warfarin # Obesity PLAN: Continue current cardiac medications including Amio, aspirin, atorvastatin, carvedilol, Lasix, lisinopril, and Aldactone Continue anticoagulation with Coumadin. Monitor INR Patient unable to afford Entresto and SGLT2 inhibitors Patient is currently stable for discharge from a cardiac standpoint Patient to follow-up postdischarge in the office with Dr. Reece Nurse practitioner note has been reviewed by physician. Signing provider agrees with the documented findings, assessment, and plan of care documented by EVENT PROMOTER as a scribe. Objective - Vital Signs Vital signs: Vital Signs Temp 98.2 F 10/23/24 07:00 Pulse 97 10/23/24 09:18 Resp 16 10/23/24 07:00 BP 142/72 10/23/24 09:18 Pulse Ox 93 L 04/07/25 07:00 FiO2 Intake & Output 10/22/24 10/23/24 10/23/24 18:59 06:59 18:59 Intake Total 118 236 Balance 118 236 Intake: Oral 118 236 Other: Voiding Method Toilet Toilet # Voids 3 3 # Bowel Movements 1 - Labs CBC & Chem 7: 10/21/24 11:54 10/23/24 05:58 Labs: Abnormal Lab Results - Last 24 Hours (Table) 10/22/24 10/23/24 10/23/24 Range/Units 06:48 05:58 05:58 PT 20.8 H (10.0-12.5) sec INR 2.1 H (<1.2) Anion Gap 13.30 H (4.00-12.00) mmol/L Triglycerides 245.00 H (0.00-149.00) mg/dL VLDL Cholesterol, Calc 49.00 H (5.00-40.00) mg/dL HDL Cholesterol 22.70 L (40.00-60.00) mg/dL
[2024-10-23] MEDS: WARFARIN 3 MG TAB PO ONE (17:45)
--- NOTE | 2024-10-24 03:57 | PN ---
PROGRESS NOTE DATE OF SERVICE: 10/23/2024 CHIEF COMPLAINT: Chest pain. HISTORY OF PRESENT ILLNESS: This lady is doing well. She has not had any further chest pain. Her blood pressure is slightly low. She seems to feel fine. She feels this may be due to anxiety. PHYSICAL EXAMINATION: CHEST: Clear. CARDIAC: Reveals atrial fibrillation. ABDOMEN: Soft and nontender. EXTREMITIES: Normal. IMPRESSION: 1. Chest pain. 2. History of coronary artery disease. 3. Atrial fibrillation. 4. 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 5. Anxiety. 6. Hypotension. PLAN: Increase activity and possibly home today or tomorrow. MMODL / IJN: [id number] /
[2024-10-24 06:30] LABS: INR 2.2 (<1.2)
--- NOTE | 2024-10-24 11:34 | P.PN ---
Subjective HISTORY OF PRESENT ILLNESS: Patient is a 59-year-old female who is known to Dr. Reece. She has history of nonischemic cardiomyopathy with biventricular ICD with recent generator change. She also has history of ventricular fibrillation, COPD, cor pulmonale and history of pulmonary embolism. This time she presented because of atypical substernal chest pain like symptoms. On admission her EKG showed ventricularly paced rhythm On admission her troponins were not elevated, D-dimer are not elevated Her LDL was 73, Chest x-ray shows mild increased interstitial markings in bilateral lower lung baker suggestive of mild pulm congestion. 10/23/2024 Patient examined this morning at the bedside. Patient currently denies chest pain or pressure. She currently denies shortness of breath but states that she feels like her lungs are tight at times. She states that Dr. Mosqueda discussed possibly putting her on steroids. Pressures were low with a systolic in the 80s and 90s yesterday. However blood pressure this morning is stable with a reading of 142/72. 10/24/2024 Patient examined this morning at the bedside. Patient denies CP or SOB. Blood pressure was in the 80s yesterday. Patient reports feeling dizzy at that time. She has been refusing BP meds since that time. PHYSICAL EXAM: VITAL SIGNS: Reviewed. GENERAL: Well-developed in no acute distress. NECK: Supple. No JVD or thyromegaly LUNGS: Respirations even and unlabored. Lungs essentially clear to auscultation bilaterally. HEART: Regular rate and rhythm. S1 and S2 heard. EXTREMITIES: Normal range of motion. No clubbing or cyanosis. Peripheral pulses intact. No lower extremity edema ASSESSMENT: # Acute on chronic heart failure with reduced EF # Prior history of nonischemic cardiomyopathy # Biventricular ICD # History of ventricular fibrillation # History of PE on warfarin # Obesity PLAN: Continue current cardiac medications including Amio, aspirin, atorvastatin, carvedilol, Lasix, lisinopril, and Aldactone Decrease Coreg to 6.25mg BID Decrease Lasix to 20mg daily Continue anticoagulation with Coumadin. Monitor INR Patient unable to afford Entresto and SGLT2 inhibitors Patient is currently stable from a cardiac standpoint Patient to follow-up postdischarge in the office with Dr. Reece Nurse practitioner note has been reviewed by physician. Signing provider agrees with the documented findings, assessment, and plan of care documented by JD EDWARDS CONSULTANT as a scribe. Objective - Vital Signs Vital signs: Vital Signs Temp 97.9 F 10/24/24 07:00 Pulse 85 10/24/24 07:00 Resp 16 10/24/24 07:00 BP 109/75 10/24/24 07:00 Pulse Ox 93 L 10/24/24 07:00 FiO2 Intake & Output 10/23/24 10/24/24 10/24/24 18:59 06:59 18:59 Intake Total 472 360 Balance 472 360 Intake: Oral 472 360 Other: Voiding Method Toilet Toilet # Voids 3 1 - Labs CBC & Chem 7: 10/21/24 11:54 10/23/24 05:58 Labs: Abnormal Lab Results - Last 24 Hours (Table) 10/24/24 Range/Units 05:00 PT 22.0 H (10.0-12.5) sec INR 2.2 H (<1.2)
[2024-10-24] MEDS: WARFARIN 3 MG TAB PO ONE (18:08)
[2024-10-24] MEDS: carvediloL 6.25 MG TAB PO SCH (18:08)
--- NOTE | 2024-10-25 04:48 | PN ---
PROGRESS NOTE DATE OF SERVICE: 10/24/2024 CHIEF COMPLAINT: Chest pain, shortness of breath, and hypotension. HISTORY OF PRESENT ILLNESS: This lady still has her headache, and her blood pressure is staying fairly low. Cardiology is suggesting medications, but she still feels weak and lightheaded. PHYSICAL EXAMINATION: CHEST: Demonstrates scattered rales. CARDIAC: Reveals her atrial fibrillation. ABDOMEN: Soft, nontender. IMPRESSION: 1. Chest pain. 2. Episodes of hypotension. 3. Atrial fibrillation. 4. Previous central nervous system bleed. PLAN: Continue efforts to control her hypertension as well as hypotension in order that she can be discharged. MMODL / IJN: [id number] /
[2024-10-25 08:18] VITALS: BP 105/60; PULSE 80; RESP 16; TEMP 97.8
--- NOTE | 2024-10-25 09:30 | P.PN ---
Subjective HISTORY OF PRESENT ILLNESS: Patient is a 59-year-old female who is known to Dr. Reece. She has history of nonischemic cardiomyopathy with biventricular ICD with recent generator change. She also has history of ventricular fibrillation, COPD, cor pulmonale and history of pulmonary embolism. This time she presented because of atypical substernal chest pain like symptoms. On admission her EKG showed ventricularly paced rhythm On admission her troponins were not elevated, D-dimer are not elevated Her LDL was 73, Chest x-ray shows mild increased interstitial markings in bilateral lower lung baker suggestive of mild pulm congestion. 10/23/2024 Patient examined this morning at the bedside. Patient currently denies chest pain or pressure. She currently denies shortness of breath but states that she feels like her lungs are tight at times. She states that Dr. Mosqueda discussed possibly putting her on steroids. Pressures were low with a systolic in the 80s and 90s yesterday. However blood pressure this morning is stable with a reading of 142/72. 10/24/2024 Patient examined this morning at the bedside. Patient denies CP or SOB. Blood pressure was in the 80s yesterday. Patient reports feeling dizzy at that time. She has been refusing BP meds since that time. 10/25/2024 Patient examined this morning to bedside. Patient currently denies chest pain or pressure. She denies shortness of breath. Vital signs are stable. Patient is hoping to be discharged home today. PHYSICAL EXAM: VITAL SIGNS: Reviewed. GENERAL: Well-developed in no acute distress. NECK: Supple. No JVD or thyromegaly LUNGS: Respirations even and unlabored. Lungs essentially clear to auscultation bilaterally. HEART: Regular rate and rhythm. S1 and S2 heard. EXTREMITIES: Normal range of motion. No clubbing or cyanosis. Peripheral pulses intact. No lower extremity edema ASSESSMENT: # Acute on chronic heart failure with reduced EF # Prior history of nonischemic cardiomyopathy # Biventricular ICD # History of ventricular fibrillation # History of PE on warfarin # Obesity PLAN: Continue current cardiac medications including amiodarone, aspirin, Lipitor, carvedilol, Lasix, lisinopril, and Aldactone Continue anticoagulation with Coumadin. Monitor INR Patient unable to afford Entresto and SGLT2 inhibitors Patient is currently stable from a cardiac standpoint Patient to follow-up postdischarge in the office with Dr. Reece We will sign off. Please reconsult if needed. Nurse practitioner note has been reviewed by physician. Signing provider agrees with the documented findings, assessment, and plan of care documented by RF ENGINEER as a scribe. Objective - Vital Signs Vital signs: Vital Signs Temp 97.8 F 10/25/24 06:55 Pulse 80 10/25/24 06:55 Resp 16 10/25/24 06:55 BP 105/60 10/25/24 06:55 Pulse Ox 93 L 10/25/24 06:55 FiO2 Intake & Output 10/24/24 10/25/24 10/25/24 18:59 06:59 18:59 Intake Total 360 1130 Balance 360 1130 Intake: Oral 360 1130 Other: # Voids 2 - Labs CBC & Chem 7: 10/21/24 11:54 10/23/24 05:58 Labs: Abnormal Lab Results - Last 24 Hours (Table) 10/25/24 Range/Units 04:35 PT 20.0 H (10.0-12.5) sec INR 2.0 H (<1.2)
[2024-10-25] MEDS: FUROSEMIDE 20 MG TAB PO SCH (09:34)
[2024-10-25] MEDS ORDERED: WARFARIN 3 MG TAB PO SCH (18:00)
--- NOTE | 2024-10-26 04:41 | DS ---
DISCHARGE SUMMARY CHIEF COMPLAINT: Chest pain, shortness of breath. HISTORY OF PRESENT ILLNESS AND PHYSICAL EXAMINATION: Details of this lady's history and physical can be found in the initial workup. LABORATORY STUDIES: While she was in the hospital, she had laboratory studies, details of which can be found in the laboratory section of her chart. COURSE IN THE HOSPITAL: After admission, she was placed on bedrest, started on intravenous fluids and placed on telemetry. She was seen in consult by Cardiology. She did develop a significant headache, but slowly her chest pain improved. Headache disappeared. Blood pressure remains slightly low, but then it returned to normal. She is doing well and it was felt that she could be discharged on the and she will go home on her usual activity, diet, medication, and follow up in the office. FINAL DIAGNOSES: 1. Chest pain. 2. Hypotension. 3. Headache. 4. Shortness of breath. 5. History of coronary artery disease. 6. Atrial fibrillation. 7. Previous intracranial bleed. OPERATIONS: None. CONSULTATION: Cardiology. NEERAJ / MARION: [id number] /
== END 2024-10-25 13:23 | disposition home or self-care (01) | DRG 291 ==
LOC: EC 11:38 → 6NMEDSUR 15:12 → OBSVTOIN 10-24 14:43
PROVIDERS: ADMIT Family Medicine; ATTEND Family Medicine
DX: I11.0 Hypertensive heart disease with heart failure (principal); I50.23 Acute on chronic systolic (congestive) heart failure; Z79.01 Long term (current) use of anticoagulants; I42.8 Other cardiomyopathies; J44.9 Chronic obstructive pulmonary disease, unspecified; E66.9 Obesity, unspecified; Z68.42 Body mass index [BMI] 45.0-49.9, adult; I48.91 Unspecified atrial fibrillation; I25.10 Atherosclerotic heart disease of native coronary artery without angina pectoris; I25.2 Old myocardial infarction; E78.5 Hyperlipidemia, unspecified; F41.9 Anxiety disorder, unspecified; Z95.810 Presence of automatic (implantable) cardiac defibrillator; Z79.899 Other long term (current) drug therapy; Z86.711 Personal history of pulmonary embolism; Z87.891 Personal history of nicotine dependence; Z86.73 Personal history of transient ischemic attack (TIA), and cerebral infarction without residual deficits
CPT/HCPCS: 36415; 71046; 80048; 80053; 80061; 83735; 84484; 85025; 85379; 85610; 85730; 93005; 96360; 96361; 99285

== ENCOUNTER 2025-01-08 16:57 | Emergency (ER) | payer MEDICARE, OTHER ==
[2025-01-08 17:46] VITALS: BP 129/81; PULSE 87; RESP 20; TEMP 98.5
--- NOTE | 2025-01-08 17:49 | ED ---
General Adult HPI - General Source: patient, RN notes reviewed Mode of arrival: ambulatory Limitations: no limitations <Lili Madison - Last Filed: 01/08/25 17:48> <Pia Batres - Last Filed: 01/08/25 23:47> - General Chief complaint: Skin/Abscess/Foreign Body Stated complaint: L arm swelling Time Seen by Provider: 01/08/25 17:10 - History of Present Illness Initial comments: Quick [id number] female presents emergency room with complaints of left elbow pain and swelling that started this morning. Patient states that yesterday evening when she went to bed she started have pain of her elbow. She denies injury. Denies fevers, chills. History of MRSA. (Lili Madison) 59-year-old female presenting with chief complaint of pain and swelling over the left elbow. She states that she started having some pain in the elbow yesterday and then today when she woke up there was redness and swelling. She denies any injury or trauma. No fever or chills. She still is full range of motion of the elbow. No numbness or tingling. (Pia Batres) - Related Data Home Medications Medication Instructions Recorded Confirmed Spironolactone [Aldactone] 25 mg PO DAILY 08/15/20 10/21/24 Amiodarone [Cordarone] 100 mg PO DAILY 06/20/21 10/22/24 carvediloL [Coreg] 6.25 mg PO BID 05/08/23 10/21/24 lisinopriL [Zestril] 2.5 mg PO DAILY 05/08/23 10/21/24 Warfarin Sodium 6 mg PO HS 10/05/23 10/21/24 ALPRAZolam [Xanax] 0.25 mg PO TID PRN 03/28/24 10/21/24 Atorvastatin [Lipitor] 80 mg PO HS 06/20/24 10/21/24 traZODone HCL 100 mg PO HS PRN 06/20/24 10/21/24 Previous Rx's Medication Instructions Recorded Furosemide [Lasix] 20 mg PO DAILY #10 tab 10/25/24 Allergies Allergy/AdvReac Type Severity Reaction Status Date / Time hydromorphone [From Dilaudid] AdvReac Nausea & Verified 01/08/25 17:46 Vomiting Review of Systems ROS Other: All systems not noted in ROS Statement are negative. <Lili Madison - Last Filed: 01/08/25 17:48> ROS Other: All systems not noted in ROS Statement are negative. <Pia Batres - Last Filed: 01/08/25 23:47> ROS Statement: Those systems with pertinent positive or pertinent negative responses have been documented in the HPI. Past Medical History Past Medical History: Chest Pain / Angina, COPD, Hyperlipidemia, Hypertension, Myocardial Infarction ([place]), Pneumonia, Pulmonary Embolus ([place]) Additional Past Medical History / Comment(s): cardiomyopathy, PE (10yrs ago), brain aneursym ALTURAS Last Myocardial Infarction Date:: 10years ago History of Any Multi-Drug Resistant Organisms: MRSA Date of last positivie culture/infection: 04/02/24 MDRO Source:: left arm Past Surgical History: AICD, Cholecystectomy, Heart Catheterization, Pacemaker Additional Past Surgical History / Comment(s): AICD defibrillator placed 6 years ago, Right perforated eardrum Past Anesthesia/Blood Transfusion Reactions: No Reported Reaction Type of Cardiac Device: AICD Device Placement Date:: 2015 Past Psychological History: Anxiety, Depression Smoking Status: Former smoker Past Alcohol Use History: None Reported Past Drug Use History: None Reported - Past Family History Mother Family Medical History: Diabetes Mellitus, Hypertension Father Family Medical History: No Reported History Sister(s) Family Medical History: Diabetes Mellitus <Lili Madison - Last Filed: 01/08/25 17:48> General Exam Limitations: no limitations <Lili Madison - Last Filed: 01/08/25 17:48> Limitations: no limitations General appearance: alert, in no apparent distress Head exam: Present: atraumatic, normocephalic, normal inspection Eye exam: Present: normal appearance, EOMI Neck exam: Present: normal inspection. Absent: meningismus Respiratory exam: Absent: respiratory distress Cardiovascular Exam: Present: regular rate Left Elbow exam: Present: full ROM, tenderness, swelling, erythema (mild) Neurological exam: Present: alert, oriented X3 Psychiatric exam: Present: normal affect, normal mood <Pia Batres - Last Filed: 01/08/25 23:47> - General Exam Comments Initial Comments: Visual Physical Exam Vital signs reviewed General: Well-appearing, nontoxic, no acute distress. Head: Normocephalic, atraumatic Eyes: PERRLA, EOMI ENT: Airway patent Chest: Nonlabored breathing Skin: No visual rash, normal skin tone Neuro: Alert and oriented 3 Musculoskeletal: No gross abnormalities (Lili Madison) Course Vital Signs 01/08/25 17:42 Temperature 98.5 F Pulse Rate 87 Respiratory 20 Rate Blood Pressure 129/81 O2 Sat by Pulse 96 Oximetry Medical Decision Making <Lili Madison - Last Filed: 01/08/25 17:48> - Lab Data Result diagrams: 01/08/25 19:02 01/08/25 19:02 <Pia Batres - Last Filed: 01/08/25 23:47> - Medical Decision Making I completed the quick note portion of this chart signed Lili Madison PA-C (Lili Madison) Was pt. sent in by a medical professional or institution ([facility], [facility], urgent care, hospital, or alf...) When possible be specific @ -No Did you speak to anyone other than the patient for history (EMS, parent, family, police, friend...)? What history was obtained from this source @ -No Did you review nursing and triage notes (agree or disagree)? Why? @ -I reviewed and agree with nursing and triage notes Were old charts reviewed (outside hosp., previous admission, EMS record, old EKG, old radiological studies, urgent care reports/EKG's, alf records)? Report findings @ -No old charts were reviewed Differential Diagnosis (chest pain, altered mental status, abdominal pain women, abdominal pain men, vaginal bleeding, weakness, fever, dyspnea, syncope, headache, dizziness, GI bleed, back pain, seizure, CVA, palpatations, mental health, musculoskeletal)? @ -Differential Musculoskeletal Muscular strain, contusion, ligament sprain, fracture, arthritis, septic arthritis, bursitis, cellulitis, muscle spasm, nerve compression, DVT, arterial occlusion, herpes zoster, electrolyte abnormality, tumor.... This is not meant to be in all inclusive list EKG interpreted by me (3pts min.). @ -As above X-rays interpreted by me (1pt min.). @ -X-ray shows no displaced fracture. There is some elevation of the posterior fat pad. Soft tissue swelling over the olecranon CT interpreted by me (1pt min.). @ -None done U/S interpreted by me (1pt. min.). @ -None done What testing was considered but not performed or refused? (CT, X-rays, U/S, labs)? Why? @ -None What meds were considered but not given or refused? Why? @ -None Did you discuss the management of the patient with other professionals (professionals i.e. DrAlcides, PA, FERN GATHERER, lab, RT, psych nurse, social service assistant, supervisor solder making, teacher, security police officer, case specialist)? Give summary @ -No Was smoking cessation discussed for >3mins.? @ -No Was critical care preformed (if so, how long)? @ -No Were there social determinants of health that impacted care today? How? (Homelessness, low income, unemployed, alcoholism, drug addiction, transportation, low edu. Level, literacy, decrease access to med. care, care home, rehab)? @ -No Was there de-escalation of care discussed even if they declined (Discuss DNR or withdrawal of care, Hospice)? DNR status @ -No What co-morbidities impacted this encounter? (DM, HTN, Smoking, COPD, CAD, Cancer, CVA, ARF, Chemo, Hep., AIDS, mental health diagnosis, sleep apnea, morbid obesity)? @ -None Was patient admitted / discharged? Hospital course, mention meds given and route, prescriptions, significant lab abnormalities, going to OR and other pertinent info. @ -59-year-old female presented with chief complaint of pain and swelling to the left elbow. No injury or trauma. Workup was initiated by triage and patient was later brought back to a hallway bed and is examined by myself. There is some mild redness as well. She has full range of motion. Does not appear consistent with septic arthritis. No leukocytosis. Lactic acid 2.1 CRP 1.4. X-ray negative for acute displaced fracture. While there is some elevation of the posterior fat pad, this does not necessarily clinically correlate with the patient's history of no injury or trauma. Seems most consistent with olecranon bursitis. Patient is educated on RICE method and started on Bactrim. Follow-up with PCP. Report back to ER with any new or worsening symptoms. Discussed return parameters and answered all questions. Patient conveyed verbal understanding and agreed to the plan. I discussed this case in detail with my attending Dr. Perez Undiagnosed new problem with uncertain prognosis? @ -No Drug Therapy requiring intensive monitoring for toxicity (Heparin, Nitro, Insulin, Cardizem)? @ -No Were any procedures done? @ -No Diagnosis/symptom? @ -Olecranon bursitis Acute, or Chronic, or Acute on Chronic? @ -Acute Uncomplicated (without systemic symptoms) or Complicated (systemic symptoms)? @ -Uncomplicated Side effects of treatment? @ -No Exacerbation, Progression, or Severe Exacerbation? @ -No Poses a threat to life or bodily function? How? (Chest pain, [place], [place], pneumonia, PE, COPD, DKA, ARF, appy, cholecystitis, CVA, Diverticulitis, Homicidal, Suicidal, threat to staff... and all critical care pts) @ -Unlikely (iPa Batres) - Lab Data Lab Results 01/08/25 01/08/25 01/08/25 Range/Units 19:02 19:02 19:02 WBC 8.70 (4.50-10.00) 10*3/uL RBC 4.84 (4.10-5.20) 10*6/uL Hgb 14.2 (12.0-15.0) g/dL Hct 41.9 (37.2-46.3) % MCV 86.6 (80.0-97.0) fL MCH 29.3 (27.0-32.0) pg MCHC 33.9 (32.0-37.0) g/dL Plt Count 197 (140-440) 10*3/uL MPV 11.5 (9.5-12.2) fL Immature Gran % (Auto) 0.3 % Neutrophils % 68.9 % Lymphocytes % 20.2 % Monocytes % 8.2 % Eosinophils % 2.1 % Basophils % 0.3 % Immature Gran # 0.03 (0.00-0.04) 10*3/uL Neutrophils # 5.99 (1.80-7.70) 10*3/uL Lymphocytes # 1.76 (0.90-5.00) 10*3/uL Monocytes # 0.71 (0.20-1.00) 10*3/uL Eosinophils # 0.18 (0.04-0.35) 10*3/uL Basophils # 0.03 (0.00-0.10) 10*3/uL Sodium 142 (137-145) mmol/L Potassium 4.1 (3.5-5.1) mmol/L Chloride 104 (98-107) mmol/L Carbon Dioxide 23 (22-30) mmol/L Anion Gap 15 mmol/L BUN 15 (7-17) mg/dL Creatinine 0.82 (0.52-1.04) mg/dL Est GFR (CKD-EPI)AfAm >90 (>60 ml/min/1.73 sqM) Est GFR (CKD-EPI)NonAf 78 (>60 ml/min/1.73 sqM) Glucose 100 H (74-99) mg/dL Lactic Ac Sepsis Rflx Plasma Lactic Acid Carlos Eduardo 2.1 H* (0.7-2.0) mmol/L Calcium 10.0 (8.4-10.2) mg/dL Total Bilirubin 1.0 (0.2-1.3) mg/dL AST 41 H (14-36) U/L ALT 32 (4-34) U/L Alkaline Phosphatase 101 (38-126) U/L C-Reactive Protein 1.4 H (<1.0) mg/dL Total Protein 7.9 (6.3-8.2) g/dL Albumin 4.9 (3.5-5.0) g/dL 01/08/25 Range/Units 19:28 WBC (4.50-10.00) 10*3/uL RBC (4.10-5.20) 10*6/uL Hgb (12.0-15.0) g/dL Hct (37.2-46.3) % MCV (80.0-97.0) fL MCH (27.0-32.0) pg MCHC (32.0-37.0) g/dL Plt Count (140-440) 10*3/uL MPV (9.5-12.2) fL Immature Gran % (Auto) % Neutrophils % % Lymphocytes % % Monocytes % % Eosinophils % % Basophils % % Immature Gran # (0.00-0.04) 10*3/uL Neutrophils # (1.80-7.70) 10*3/uL Lymphocytes # (0.90-5.00) 10*3/uL Monocytes # (0.20-1.00) 10*3/uL Eosinophils # (0.04-0.35) 10*3/uL Basophils # (0.00-0.10) 10*3/uL Sodium (137-145) mmol/L Potassium (3.5-5.1) mmol/L Chloride (98-107) mmol/L Carbon Dioxide (22-30) mmol/L Anion Gap mmol/L BUN (7-17) mg/dL Creatinine (0.52-1.04) mg/dL Est GFR (CKD-EPI)AfAm (>60 ml/min/1.73 sqM) Est GFR (CKD-EPI)NonAf (>60 ml/min/1.73 sqM) Glucose (74-99) mg/dL Lactic Ac Sepsis Rflx Y Plasma Lactic Acid Carlos Eduardo (0.7-2.0) mmol/L Calcium (8.4-10.2) mg/dL Total Bilirubin (0.2-1.3) mg/dL AST (14-36) U/L ALT (4-34) U/L Alkaline Phosphatase (38-126) U/L C-Reactive Protein (<1.0) mg/dL Total Protein (6.3-8.2) g/dL Albumin (3.5-5.0) g/dL Disposition <Lili Madison - Last Filed: 01/08/25 17:48> Is patient prescribed a controlled substance at d/c from ED?: No Time of Disposition: 19:47 <Pia Batres - Last Filed: 01/08/25 23:47> Clinical Impression: Olecranon bursitis Disposition: HOME SELF-CARE Condition: Good Instructions (If sedation given, give patient instructions): Elbow Bursitis (ED) Additional Instructions: Follow-up with PCP. Report back to ER with any new or worsening symptoms. Rest, ice, compress, elevate the elbow. Take medication as prescribed. Take Motrin and Tylenol as needed for pain control. Referrals: Daniel Mosqueda MD [Primary Care Provider] - 1-2 days
--- NOTE | 2025-01-08 18:34 | XR ---
EXAMINATION TYPE: XR elbow complete LT DATE OF EXAM: 01/08/2025 5:59 PM COMPARISON: None. CLINICAL INDICATION: Female, 59 years old with history of pain, swelling, pain TECHNIQUE: 3 view(s) obtained. FINDINGS: Radius aligns normally with the humerus. No acute fracture or dislocation of the. Anterior fat pad is normal. There may be some elevation of the posterior fat pad. Correlate for small joint effusion. Oc cult fracture could be considered. There is soft tissue swelling over the olecranon. Follow up exams can be performed 7-10 days from acute trauma for continued pain. IMPRESSION: 1. No displaced fracture identified. Occult fracture is not excluded. There is some elevation of the posterior fat pad. 2. Soft tissue swelling over the olecranon [facility], , 01/08/2025 6:32 PM
[2025-01-08 19:09] LABS: Basophils # (A) 0.03 10*3/uL (0.00-0.10); Basophils % (A) 0.3 %; Eosinophils # (A) 0.18 10*3/uL (0.04-0.35); Eosinophils % (A) 2.1 %; HCT 41.9 % (37.2-46.3); HGB 14.2 g/dL (12.0-15.0); Lymphocytes # (A) 1.76 10*3/uL (0.90-5.00); Lymphocytes % (A) 20.2 %; MCH 29.3 pg (27.0-32.0); MCHC 33.9 g/dL (32.0-37.0); MCV 86.6 fL (80.0-97.0); Mean Platelet Volume 11.5 fL (9.5-12.2); Monocytes # (A) 0.71 10*3/uL (0.20-1.00); Monocytes % (A) 8.2 %; Neutrophils # (A) 5.99 10*3/uL (1.80-7.70); Neutrophils % (A) 68.9 %; Platelet Count 197 10*3/uL (140-440); RBC 4.84 10*6/uL (4.10-5.20); RDW 15.9 % (11.5-14.5)
[2025-01-08 19:32] LABS: ALT 32 U/L (4-34); AST 41 U/L (14-36); African American GFR (CKD) >90 (>60 ml/min/1.73 sqM); Albumin 4.9 g/dL (3.5-5.0); Alkaline Phosphatase 101 U/L (38-126); Anion Gap 15 mmol/L; Blood Urea Nitrogen 15 mg/dL (7-17); C Reactive Protein 1.4 mg/dL (<1.0); Carbon Dioxide 23 mmol/L (22-30); Chloride 104 mmol/L (98-107); Glucose 100 mg/dL (74-99); Non-African American GFR(CKD) 78 (>60 ml/min/1.73 sqM); Potassium 4.1 mmol/L (3.5-5.1); Sodium 142 mmol/L (137-145); Total Protein 7.9 g/dL (6.3-8.2)
[2025-01-08] MEDS ORDERED: IBUPROFEN 400 MG TAB PO STA (19:45)
[2025-01-08] MEDS ORDERED: SULFAMETHOX-TMP 800-160MG 1 EACH TAB PO STA (19:46)
== END 2025-01-08 20:11 | disposition home or self-care (01) ==
LOC: EC 16:57
DX: M70.22 Olecranon bursitis, left elbow (principal); Z87.891 Personal history of nicotine dependence; Z88.5 Allergy status to narcotic agent
CPT/HCPCS: 36415; 80053; 83605; 85025; 86140; 99283